=== PATIENT | female | born 2000 | race Caucasian/White ===

== ENCOUNTER 2022-12-29 14:11 | Observation (INO) | payer MEDICAID, SELFPAY ==
[2022-12-29 14:56] VITALS: BP 118/60; PULSE 96
[2022-12-29 15:15] LABS: Bilirubin Urine NEGATIVE (NEGATIVE); Blood Urine NEGATIVE (NEGATIVE); Clarity Urine CLEAR (CLEAR); Color Urine LT. YELLOW (YELLOW); Glucose Urine UA NEGATIVE (NEGATIVE); Ketones Urine NEGATIVE (NEGATIVE); Leukocyte Esterase Urine NEGATIVE (NEGATIVE); Nitrite Urine NEGATIVE (NEGATIVE); Protein Urine NEGATIVE (NEG/TRACE); Specific Gravity Urine <=1.005 (1.005-1.025); Urobilinogen Urine 0.2 EU/dL (0.2-1.0); pH Urine 6.5 (5.0-9.0)
[2022-12-29 15:16] LABS: Urine Microscopic Indicated NO
[2022-12-29 15:22] LABS: Amnisure NEGATIVE (NEGATIVE)
== END 2022-12-29 16:02 | disposition home or self-care (01) ==
PROVIDERS: Admitting Provider Obstetrics & Gynecology; Visit Provider Obstetrics & Gynecology
DX: O26.892 Other specified pregnancy related conditions, second trimester (principal); N89.8 Other specified noninflammatory disorders of vagina; R10.9 Unspecified abdominal pain; Z3A.25 25 weeks gestation of pregnancy
CPT/HCPCS: 59025; 81003; 84112; G0378; G0379

== ENCOUNTER 2024-07-26 22:35 | Emergency (ER) | payer SELFPAY ==
[2024-07-26 22:46] VITALS: BP 112/82; PULSE 104; TEMP 36.8; O2SAT 99; BMI 43.4
--- OUTSIDE RECORDS SUMMARY | 2024-07-26 22:53 | XMS_ITS | CCD ---
Author Organization [facility] ion Partnership [facility] Care Team Providers Care Flat Surfacer Name Role Phone Unavailable Primary Care Provider Unavailabl e ADAPLUCAS SIR Referring Unavailable [place] Unavailable Unavailable Primary Care Provider Unavailabl e Shelbie Finch Unavailable FAHAD ECHEVARRIA Admitting Unavailable SHELBIE FINCH Primary Care Unavailable FAHAD ECHEVARRIA Attending Unavailable SHELBIE FINCH Consulting Unavailable SHELBIE FINCH Attending Unavailable SHELBIE FINCH Admitting Unavailable SHELBIE FINCH Primary Care Unavailable Jolene Love Unavailable Alpesh Singh Attending Unavailab Alpesh Cat Admitting Unavailab dashawn NO FAMILY, PHYSICIAN Primary Care Unavailable No Pcp, No Pcp Primary Care Provider Unavailabl e Unavailable Primary Care Provider Unavailabl e No Pcp, No Pcp Primary Care Provider Unavailabl e NO FAMILY, PHYSICIAN Primary Care Provider Unava ilable Alpesh Singh MD Attending Provider No Pcp, No Pcp Primary Care Provider Unavailabl e ELISA ARCE Attending Unavailable HILTON BOWIE Attending Unavailable NO PCP, NO PCP Primary Care Unavailable AJ FLORES Attending Unavailable NO PCP, NO PCP Primary Care Unavailable MAVIS ROCK Referring Unavailable NO PCP, NO PCP Primary Care Unavailable NO PCP, NO PCP Primary Care Unavailable NO PCP, NO PCP Primary Care Unavailable NO PCP, NO PCP Primary Care Unavailable LAUREN ROJAS Attending Unavailable BEATRIZ KEBEDE Attending Unavailable NO PCP, NO PCP Primary Care Unavailable BEATRIZ KEBEDE Referring Unavailable NO PCP, NO PCP Primary Care Unavailable BEATRIZ KEBEDE Attending Unavailable NO PCP, NO PCP Primary Care Unavailable LIZ MCKEON Attending Unavailable NO PCP, NO PCP Primary Care Unavailable KESHA BANKS Referring Unavailable NO PCP, NO PCP Primary Care Unavailable NO PCP, NO PCP Primary Care Unavailable MELISSA BARR Referring Unavaila ble NO PCP, NO PCP Primary Care Unavailable Medications Current Medications Medication Drug Class(es) Dates Sig (Normalized) Sig (Original) acetaminophen 500 mg oral tablet (10 sources) Start: 06-30-2023 take 2 tablets by mouth every six hours as needed for pain acetaminophen (TYLENOL EXTRA STRENGTH) 500 mg tablet Take 2 tablets (1,000 mg total) by mouth every 6 (six) hours as needed for pain. 30 tablet 06/30/2023 Active Start: 04-01-2023 End: 04-03-2023 take 1 tablet by mouth every eight hours as needed for pain and pain 1,000 mg, oral, Every 8 hours PRN, moderate pain - pain scale 4-6, severe pain - pain scale 7-10, Starting on Thu04/01/23 at 2323, Start: 04-01-2023 End: 04-03-2023 take 1 tablet by mouth every four hours as needed for pain 650 mg, oral, Every 4 hours PRN, mild pain - pain scale 1-3, Starting on Thu04/01/23 at 2323, Start: 10-27-2021 End: 10-27-2021 acetaminophen (TYLENOL) tabl et 1,000 mg take 2 tablets by mo uth every six hours as needed for pain acetaminophen (TYLENOL) 325 MG tablet Take 2 tablets by mouth every 6 hours as needed for Pain Active amoxicillin 875 mg / clavulanate 125 mg oral tablet (1 source) Penicillin-class Antibacterial Start: 06-14-2024 End: 06-21-2024 take 1 tablet by mouth every twelve hours amoxicillin-pot clavulanate (AUGMENTIN) 875-125 mg per tablet Take 1 tablet by mouth every 12 (twelve) hours for 7 days. 14 tablet 06/14/2024 06/21/2024 Active ARIPiprazole 2 mg oral tablet (5 sources) Atypical Antipsychotic Start: 08-20-2023 take 1 tablet by mouth in the morning ARIPiprazole (ABILIFY) 2 mg tablet Take 1 tablet (2 mg total) by mouth in the morning. 08/20/2023 Active benzonatate 100 mg oral capsule (6 sources) Non-narcotic Antitussive Start: 02-17-2024 take 1 capsule by mouth every eight hours benzonatate (TESSALON PERLES) 100 mg capsule Take 1 capsule (100 mg total) by mouth every 8 (eight) hours. 21 capsule 02/17/2024 Active Blood Pressure Monitor - (1 source) Start: 10-29-2021 Blood Pressure Monitor - as directed topically qd for 30 day(s) Sep, Active dicyclomine hydrochloride 10 mg oral capsule (3 sources) Anticholinergic Start: 07-07-2023 take 1 capsule by mouth four times daily before mealtime dicyclomine (BENTYL) 10 MG capsule Take 1 capsule by mouth 4 times daily (before meals and nightly) for 10 days 40 capsule 07/07/2023 Active diphenhydrAMINE hydrochloride 25 mg disintegrating oral tablet (1 source) Histamine-1 Receptor Antagonist take 1 tablet by mouth every twenty-four hours Unisom SleepMelts 25 MG 1 tablet on the tongue and allow to dissolve at bedtime as needed Orally Once a day Active docusate sodium 100 mg oral capsule (17 sources) Start: 04-01-2023 End: 04-03-2023 take 1 capsule by mouth in the morning, then take 1 capsule by mouth at bedtime docusate sodium (COLACE) 100 mg capsule Take 1 capsule (100 mg total) by mouth in the morning and 1 capsule (100 mg total) before bedtime. 28 capsule 04/03/2023 Active drospirenone, contraceptive, (SLYND) 4 mg (28) tablet (7 sources) Start: 05-08-2023 take 1 tablet by mouth in the morning drospirenone, contraceptive, (SLYND) 4 mg (28) tablet Indications: Counseling for initiation of control method Take 4 mg by mouth in the morning. 28 tablet 10 05/08/2023 Active Ethinyl Estradiol / norgestimate (2 sources) Progestin, Estrogen Ortho Tri-Cy clen (28) Active famotidine 20 mg oral tablet (3 sources) Histamine-2 Receptor Antagonist Start: 07-07-2023 take 1 tablet by mouth twice daily famotidine (PEPCID) 20 MG tablet Take 1 tablet by mouth 2 times daily 60 tablet 07/07/2023 Active ferrous sulfate 325 mg oral tablet (20 sources) Start: 01-06-2023 End: 04-03-2023 take 1 tablet by mouth in the morning ferrous sulfate 325 (65 FE) mg tablet Indications: Other iron deficiency anemia Take 1 tablet (325 mg total) by mouth in the morning. 30 tablet 3 01/06/2023 Active ibuprofen 600 mg oral tablet (20 sources) Nonsteroidal Anti-inflammatory Drug Start: 06-30-2023 take 1 tablet by mouth every six hours as needed for pain ibuprofen (MOTRIN) 600 mg tablet Take 1 tablet (600 mg total) by mouth every 6 (six) hours as needed for pain. 30 tablet 06/30/2023 Active Start: 04-01-2023 End: 04-03-2023 take 1 tablet by mouth every eight hours as needed ibuprofen (MOTRIN) 800 mg tablet Take 1 tablet (800 mg total) by mouth every 8 (eight) hours as needed (cramping). 42 tablet 04/03/2023 Active take 1 tablet by candida th every six hours as needed for pain ibuprofen (ADVIL;MOTRIN) 200 MG tablet Take 1 tablet by mouth every 6 hours as needed for Pain Active Ibuprofen Active ivabradine 5 mg oral tablet (7 sources) Hyperpolarization-activated Cyclic Nucleotide-gated Channel January Start: 12-29-2023 take 1 tablet by mouth in the morning, then take 1 tablet by mouth at bedtime ivabradine (CORLANOR) 5 mg tablet tablet Indications: POTS (postural orthostatic tachycardia syndrome) Take 1 tablet (5 mg total) by mouth in the morning and 1 tablet (5 mg total) before bedtime. 90 tablet 3 12/29/2023 Active magnesium oxide 400 mg oral tablet (20 sources) Start: 12-22-2022 take 1 tablet by mouth in the morning magnesium oxide (MAGOX) 400 mg tablet Take 1 tablet (400 mg total) by mouth in the morning. 30 tablet 2 12/22/2022 Active 24 hr metoprolol succinate 25 mg extended release oral tablet (4 sources) beta-Adrenergic January Start: 09-18-2023 End: 12-02-2023 take 1 tablet by mouth every twenty-four hours in the morning metoprolol succinate XL (TOPROL XL) 25 mg 24 hr tablet Take 1 tablet (25 mg total) by mouth in the morning. 30 tablet 11 09/18/2023 12/02/2023 Discontinued (Patient Stopped On Own) Start: 08-28-2023 End: 09-18-2023 take 0.5 tablet by mouth every twenty-four hours in the morning metoprolol succinate XL (TOPROL XL) 25 mg 24 hr tablet Take 0.5 tablets (12.5 mg total) by mouth in the morning. 30 tablet 11 08/28/2023 09/18/2023 Discontinued midodrine hydrochloride 2.5 mg oral tablet (2 sources) alpha-Adrenergic Agonist Start: 07-15-2024 take 1 tablet by mouth twice daily midodrine (PROAMATINE) 2.5 mg tablet Take 1 tablet (2.5 mg total) by mouth 2 (two) times a day. TAKE 4-5 HOURS APART DURING UPRIGHT HOURS 60 tablet 5 07/15/2024 Active NONFORMULARY (3 sources) NONFORMULARY Ora l BC daily Active NONFORMULARY Ora l BC daily 0 Active ofloxacin 3 mg/ml ophthalmic solution (1 source) Quinolone Antimicrobial Start: 09-08-2022 Ofloxacin 0.3 % 10 drops into affected ear Otic Once a day for 7 days Aug, Active ondansetron 4 mg disintegrating oral tablet (12 sources) Serotonin-3 Receptor Antagonist Start: 06-29-2024 ondansetron ODT (ZOFRAN ODT) 4 mg disintegrating tablet Indications: Nausea and vomiting in Dissolve 1 tablet (4 mg total) on tongue every 8 (eight) hours as needed for nausea. 30 tablet 06/29/2024 Active Start: 06-28-2024 End: 06-28-2024 4 mg, IntraVENous, ONCE, 1 d ose, On Thu06/28/24 at 1500 Start: 04-11-2024 take 1 tablet by candida th every eight hours as needed for nausea and vomiting Ondansetron 4 mg tablet,disintegrating Active 4 MG PO Every 8 hours as needed for nausea and vomiting 15 April 11, 2024 12:00am Start: 07-07-2023 take 1 tablet by candida th three times daily as needed for nausea ondansetron (ZOFRAN-ODT) 4 MG disintegrating tablet Take 1 tablet by mouth 3 times daily as needed for Nausea or Vomiting 21 tablet 07/07/2023 Active Start: 03-31-2023 End: 04-02-2023 take 4 mg intravenously every four hours as needed for nausea and vomiting ondansetron (PF) (ZOFRAN) injection 4 mg Start: 10-27-2021 End: 10-27-2021 ondansetron (ZOFRAN-ODT) disintegrating tablet 4 mg Start: 02-20-2021 take 1 tablet by candida th three times daily as needed Zofran 4 MG 1 tablet Orally tid prn Jan, Active vit 70-krpb-hlzff-dha 18-1-350 mg capsule (20 sources) Start: 08-14-2022 take 1 tablet by mouth in the morning vit 38-krpr-gqgsv-dha 18-1-350 mg capsule Indications: , prevent neural tube defect Take 1 tablet by mouth in the morning. Indications: , prevention of neural tube defect when . 90 capsule 4 08/14/2022 Start: 08-14-2022 take 1 tablet by candida th in the morning vit 57-plxo-pkpkz-dha 18-1-350 mg capsule Indications: , prevent neural tube defect Take 1 tablet by mouth in the morning. Indications: , prevention of neural tube defect when . 90 capsule 4 08/14/2022 Suspended Start: 08-14-2022 take 1 tablet by candida th in the morning vit 53-djpy-rubbq-dha 18-1-350 mg capsule Indications: , prevent neural tube defect Take 1 tablet by mouth in the morning. Indications: , prevention of neural tube defect when . 90 capsule 4 08/14/2022 Active vit no.786-fiqn-zdmhr acid ( VITAMIN) 27 mg iron- 800 mcg tablet (4 sources) Start: 06-29-2024 take 1 tablet by mouth in the morning vit no.309-jpol-lxznw acid ( VITAMIN) 27 mg iron- 800 mcg tablet Indications: Positive test Take 1 tablet by mouth in the morning. 30 tablet 12 06/29/2024 Active Vitamins 28-0.8 MG (1 source) take 1 tablet by mouth once daily Vitamins 28-0.8 MG 1 tablet Orally Once a day Active sertraline 50 mg oral tablet (20 sources) Serotonin Reuptake Inhibitor Start: 03-05-2023 End: 04-03-2023 take 1 tablet by mouth in the morning sertraline (ZOLOFT) 50 mg tablet Indications: Depression affecting in third trimester, antepartum Take 1 tablet (50 mg total) by mouth in the morning. 30 tablet 2 03/05/2023 Active Start: 02-19-2023 End: 03-05-2023 take 1 tablet by mouth in the morning sertraline (ZOLOFT) 25 mg tablet Indications: Depression affecting in third trimester, antepartum Take 1 tablet (25 mg total) by mouth in the morning. 30 tablet 3 02/19/2023 03/05/2023 Discontinued Completed/Discontinued Medications Medication Drug Class(es) Dates Sig (Normalized) Sig (Original) aspirin 81 mg delayed release oral tablet (20 sources) Platelet Aggregation Inhibitor, Nonsteroidal Anti-inflammatory Drug Start: 10-21-2022 End: 04-03-2023 take 1 tablet by mouth once in the morning aspirin 81 mg Indications: care in second trimester , Heart palpitations , Obesity affecting in second trimester Take 1 tablet (81 mg total) by mouth in the morning. 150 tablet 2 10/21/2022 04/03/2023 Discontinued (Stop Taking at Discharge) benzocaine 200 mg/ml / menthol 5 mg/ml topical spray (1 source) Standardized Chemical Allergen Start: 04-02-2023 End: 04-03-2023 1 Application, topical, As needed, pain, perineum discomfort, Starting on Sammie 04/02/23 at 0111, , May keep at bedside bisacodyl 10 mg rectal suppository (1 source) Stimulant Laxative Start: 04-02-2023 End: 04-03-2023 10 mg, rectal, Once as needed, constipation, no relief from docusate or senna/docusate, Starting on Sammie 04/02/23 at 0111, For 1 dose, , Start 2nd day Look-alike/sound-a like medication - verify indication for use. calcium chloride 0.0014 meq/ml / potassium chloride 0.004 meq/ml / sodium chloride 0.103 meq/ml / sodium lactate 0.028 meq/ml injectable solution (6 sources) Start: 04-02-2023 End: 04-03-2023 take 999 mL intravenously every hour as needed 999 mL/hr, intravenous, Continuous PRN, hemorrhage treatment, Starting on Sammie 04/02/23 at 0111, , Per infusion pump. For hemorrhage treatment, administer as directed by provider Start: 04-01-2023 End: 04-01-2023 lactated ringers bolus Start: 03-31-2023 End: 04-03-2023 lactated ringers infusion 1 ml carboprost 0.25 mg/ml injection (1 source) Prostaglandin Analog Start: 03-31-2023 End: 04-03-2023 carboprost (HEMABATE) injection 250 mcg hydrocortisone 25 mg/ml topical cream (1 source) Corticosteroid Start: 04-02-2023 End: 04-03-2023 1 Application, rectal, As needed, hemorrhoids, Starting on Sammie 04/02/23 at 0111, , May keep at bedside, Indications: hemorrhoids hydrOXYzine pamoate 25 mg oral capsule (16 sources) Antihistamine Start: 03-05-2023 End: 04-03-2023 take 1 capsule by mouth twice daily as needed hydrOXYzine (VistariL) 25 mg capsule Take 1 capsule (25 mg total) by mouth 2 (two) times a day as needed for itching. 30 capsule 0 03/05/2023 04/03/2023 Discontinued (Stop Taking at Discharge) Iron (5 sources) Iron Not-Taking Iron Active lanolin 1000 mg/ml topical cream (1 source) Start: 04-02-2023 End: 04-03-2023 1 Application, topical, As needed, sore/cracked nipples, Starting on Sammie 04/02/23 at 0111, , May keep at bedside levonorgestrel 0.678877 mg/hr intrauterine system (5 sources) Progestin, Progestin-containing Intrauterine Device Start: 07-19-2024 End: 07-19-2024 levonorgestreL (MIRENA) 21 mcg/24hr (up to 8 yrs) 52 mg IUD 1 each Start: 07-19-2024 End: 07-19-2024 1 each (52 mg), intrauterine , Once, On Thu07/19/24 at 1415, For 1 dose, Has patient consent been obtained? Yes, Indication: Prevention of Unintended Kyleena Not-Taki ng Kyleena Active 1 ml methylergonovine maleate 0.2 mg/ml injection (2 sources) Ergot Derivative Start: 04-01-2023 End: 04-01-2023 200 mcg, intramuscular, Once as needed, hemorrhage management, Starting on Thu04/01/23 at 2323, For 1 dose, , Administer as directed by the provider for hemorrhage treatment. DO NOT ADMINISTER IV. Contraindicated if patient has a sensitivity or Systolic BP greater than 140 or Diastolic BP greater than 90. Look-alike/sound-alike medication - verify indication for use. Start: 03-31-2023 End: 04-01-2023 methylergonovine (METHERGINE ) injection 200 mcg miSOPROStol 0.2 mg oral tablet (2 sources) Prostaglandin E1 Analog Start: 04-02-2023 End: 04-03-2023 take 1000 ug rectal route once as needed 1,000 mcg, rectal, Once as needed, hemorrhage management, Starting on Sammie 04/02/23 at 0111, For 1 dose, , Administer as directed by the provider for hemorrhage management. Look-alike/sound-alike medication - verify indication for use. Start: 03-31-2023 End: 04-03-2023 miSOPROStoL (CYTOTEC) tablet 1,000 mcg 1 ml oxytocin 10 unt/ml injection (2 sources) Oxytocic Start: 04-02-2023 End: 04-03-2023 inject 10 [IU] by intramuscular injection once as needed 10 Units, intramuscular, Once as needed, hemorrhage management, Starting on Sammie 04/02/23 at 0111, For 1 dose, Administer as directed by provider. Start: 03-31-2023 End: 04-03-2023 oxytocin (PITOCIN) injection 10 Units oxytocin (PITOCIN) bolus fro m bag solution 10 Units (1 source) Start: 03-31-2023 End: 04-01-2023 oxytocin (PITOCIN) bolus fro m bag solution 10 Units oxytocin (PITOCIN) infusion 30 units/500 mL in lactated ringers (0.06 units/mL premix) (3 sources) Start: 04-02-2023 End: 04-03-2023 oxytocin (PITOCIN) infusion 30 units/500 mL in lactated ringers (0.06 units/mL premix) Start: 03-31-2023 End: 04-02-2023 oxytocin (PITOCIN) infusion 30 units/500 mL in lactated ringers (0.06 units/mL premix) Start: 03-31-2023 End: 04-03-2023 oxytocin (PITOCIN) infusion 30 units/500 mL in lactated ringers (0.06 units/mL premix) PNV,calcium 47-tvdi-pqehe acid ( PLUS) 27 mg iron- 1 mg tablet 1 tablet (1 source) Start: 04-02-2023 End: 04-03-2023 take 1 tablet by mouth once daily 1 tablet, oral, Daily, First dose on Thu04/02/23 at 0900, polyethylene glycol 3350 30927 mg powder for oral solution (1 source) Osmotic Laxative Start: 04-02-2023 End: 04-03-2023 17 g, oral, Daily, First dose on Thu04/02/23 at 0900, , Look-alike/sound- alike medication - verify indication for use. Dissolve 1 packet (17 gm) in 8 ounces of water, juice, soda, coffee or tea. 1000 ml sodium chloride 9 mg/ml injection (5 sources) Start: 06-28-2024 End: 06-28-2024 1,000 mL (9.59 mL/kg), IntraVENous, at 983.6 mL/hr, Administer over 61 Minutes, ONCE, On Thu06/28/24 at 1500, For 1 dose Start: 08-23-2023 End: 08-23-2023 sodium chloride 0.9 % bolus 1,000 mL Start: 04-02-2023 End: 04-03-2023 3 mL, intravenous, As needed , line care, to maintain patency, Starting on Thu04/02/23 at 0111, Start: 04-02-2023 End: 04-03-2023 take 3 mL intravenously every eight hours 3 mL, intravenous, Every 8 hours, First dose on Sammie 04/02/23 at 0115, , Flush peripheral line per protocol 10 ml tranexamic acid 100 mg/ml injection (2 sources) Antifibrinolytic Agent Start: 04-02-2023 End: 04-03-2023 take 1 dose intravenously once 1,000 mg, intravenous, Administer over 10 Minutes, As needed, hemostasis/ hemorrhage management, Starting on Thu04/02/23 at 0111, For 2 doses, , As directed by the provider for hemostasis/ hemorrhage management. Give slow IV push over 10 minutes, may repeat one time 30 minutes after initial dose. Start: 03-31-2023 End: 04-03-2023 tranexamic acid (CYKLOKAPRON ) injection 1,000 mg witch dell 500 mg/ml medicated pad (1 source) Start: 04-02-2023 End: 04-03-2023 1 Application, topical, As needed, hemorrhoids, Starting on Sammie 04/02/23 at 0111, , May keep at bedside Problems Active Problems Problem Classification Problem Date Documented Da te Episodic/Chronic Abdominal pain (3 sources) Right upper quadrant pain; Translations: [Right upper quadrant pain] Onset: 06-29-2024 06-29-2024 Episodic Blindness and vision defects (6 sources) Visual alteration; Translations: [Unspecified visual loss] Onset: 10-29-2021 Resolved: 10-29-2021 Chronic Cardiac dysrhythmias (20 sources) Inappropriate sinus tachycardia; Translations: [Inappropriate sinus tachycardia] Onset: 12-25-2022 12-25-2022 Chronic Conditions associated with dizziness or vertigo (3 sources) Dizziness; Translations: [Dizziness and giddiness] Onset: 06-27-2024 Episodic Contraceptive and procreative management (4 sources) Patient encounter status; Translations: [Encounter for other general counseling and advice on contraception] Onset: 07-19-2024 05-08-2023 Episodic E Codes: Fall (2 sources) Fall Onset: 04-13-2024 E Codes: Natural/environment (6 sources) Dog bite - wound; Translations: [Bitten by dog, initial encounter] Onset: 06-14-2024 06-14-2024 Episodic Epilepsy; convulsions (1 source) Unspecified convulsions Episodic Headache; including migraine (20 sources) New daily persistent headache; Translations: [New daily persistent headache (NDPH)] Onset: 10-29-2021 Resolved: 10-29-2021 Chronic Headache; including migraine (1 source) Headache; Translations: [Nonintractable headache, unspecified chronicity pattern, unspecified headache type] Episodic Menstrual disorders (4 sources) Amenorrhea; Translations: [Amenorrhea, unspecified] Onset: 06-29-2024 06-29-2024 Chronic Mood disorders (20 sources) Depressive disorder; Translations: [Depression] Onset: 03-18-2018 03-18-2018 Chronic Other circulatory disease (2 sources) Postural orthostatic tachycardia syndrome ; Translations: [Postural orthostatic tachycardia syndrome (POTS)] Onset: 04-13-2024 Episodic Other complications of (20 sources) Anemia of ; Translations: [Anemia complicating , third trimester] Onset: 08-14-2022 01-06-2023 Chronic Other complications of (11 sources) Vomiting of , unspecified; Translations: [Unspecified vomiting of , unspecified as to episode of care or not applicable] Onset: 08-14-2022 Resolved: 03-25-2023 03-25-2023 Episodic Other complications of (1 source) Complication of , childbirth and/or the puerperium; Translations: [ related conditions, unspecified, first trimester] 06-28-2024 Episodic Other complications of (1 source) related conditions, unspecified, first trimester; Translations: [ related conditions, unspecified, first trimester] Onset: 06-28-2024 Episodic Other ear and sense organ disorders (1 source) Swimmer's ear, left ear Episodic Other female genital disorders (1 source) Vaginal bleeding; Translations: [Abnormal uterine and vaginal bleeding, unspecified] 07-02-2024 Chronic Other female genital disorders (1 source) Abnormal uterine and vaginal bleeding, unspecified; Translations: [Abnormal uterine and vaginal bleeding, unspecified] Onset: 07-02-2024 Chronic Other gastrointestinal disorders (2 sources) Diarrhea; Translations: [Diarrhea, unspecified] 06-28-2024 Episodic Other gastrointestinal disorders (1 source) Diarrhea, unspecified; Translations: [Diarrhea, unspecified] Onset: 06-28-2024 Episodic Other nervous system disorders (3 sources) Incoordination; Translations: [Unspecified lack of coordination] Episodic Other nervous system disorders (2 sources) Unspecified lack of coordination; Translations: [UNSPECIFIED LACK OF COORDINATION] Onset: 10-29-2021 Resolved: 10-29-2021 Episodic Other nutritional; endocrine; and metabolic disorders (20 sources) Obesity caused by energy imbalance; Translations: [Class 1 obesity due to excess calories in adult] Onset: 04-03-2018 04-03-2018 Chronic Other and delivery including normal (20 sources) Finding of ; Translations: [Encounter for care and examination of lactating mother] Onset: 08-14-2022 Resolved: 06-29-2024 04-03-2023 Episodic Other upper respiratory disease (5 sources) Allergic rhinitis; Translations: [Allergic rhinitis, unspecified] Chronic Residual codes; unclassified (3 sources) Memory impairment; Translations: [Other amnesia] Episodic Residual codes; unclassified (2 sources) Disorientation, unspecified; Translations: [DISORIENTATION UNSPECIFIED] Onset: 10-29-2021 Resolved: 10-29-2021 Episodic Residual codes; unclassified (3 sources) Other amnesia; Translations: [OTHER AMNESIA] Onset: 10-29-2021 Resolved: 10-29-2021 Episodic Residual codes; unclassified (4 sources) Procedure and treatment not carried out due to patient leaving prior to being seen by health care provider; Translations: [PROC AND TX NOT CARRIED OUT PT LEAVE] Onset: 10-30-2021 Episodic Spontaneous (2 sources) Miscarriage; Translations: [Complete or unspecified spontaneous without complication] Onset: 07-02-2024 07-02-2024 Episodic Unclassified (1 source) Animal Bite Onset: 06-14-2024 Unclassified (1 source) Inappropriate sinus tachycardia, so stated; Translations: [Inappropriate sinus tachycardia, so stated] Onset: 12-25-2022 Unclassified (1 source) Procedure Onset: 07-19-2024 Unclassified (1 source) ob problem Onset: 06-29-2024 Past or Other Problems Problem Classification Problem Date Documented Date Episodic/Chronic Cardiac dysrhythmias (20 sources) Palpitations; Translations: [Palpitations] Onset: 10-21-2022 11-19-2022 Episodic Chronic obstructive pulmonary disease and bronchiectasis (1 source) Bronchitis, not specified as acute or chronic; Translations: [Bronchitis, not specified as acute or chronic] Onset: 02-17-2024 Episodic Diabetes mellitus without complication (20 sources) Abnormal glucose tolerance test; Translations: [Other abnormal glucose] Onset: 01-06-2023 Resolved: 06-12-2023 06-12-2023 Episodic Early or threatened labor (1 source) Premature uterine contraction; Translations: [False labor before 37 completed weeks of gestation, third trimester] 03-05-2023 Episodic Fever of unknown origin (1 source) Fever, unspecified Onset: 02-20-2021 Resolved: 02-20-2021 Episodic Genitourinary symptoms and ill-defined conditions (1 source) Benign essential microscopic hematuria; Translations: [Benign essential microscopic hematuria] 06-12-2023 Episodic Immunizations and screening for infectious disease (2 sources) Contact with and (suspected) exposure to other viral communicable diseases Onset: 02-20-2021 Resolved: 05-19-2021 Episodic Influenza (1 source) Influenza due to other identified influenza virus with other respiratory manifestations Onset: 02-20-2021 Resolved: 02-20-2021 Episodic Mood disorders (20 sources) Mood disorders; Translations: [Depression, unspecified] Onset: 03-18-2018 09-18-2022 Nausea and vomiting (4 sources) Nausea; Translations: [Nausea with vomiting, unspecified] Onset: 02-20-2021 Resolved: 10-29-2021 Episodic Nonspecific chest pain (2 sources) Chest pain, unspecified; Translations: [Chest pain] Onset: 12-07-2023 Episodic Other circulatory disease (1 source) Idiopathic hypotension Onset: 10-29-2021 Resolved: 10-29-2021 Episodic Other circulatory disease (1 source) Orthostatic hypotension; Translations: [Orthostatic hypotension] 08-23-2023 Episodic Other circulatory disease (1 source) Orthostatic hypotension; Translations: [Orthostatic hypotension] Onset: 08-23-2023 Episodic Other complications of (20 sources) Maternal obesity complicating , childbirth and the puerperium, antepartum; Translations: [Obesity complicating , unspecified trimester] Onset: 08-14-2022 Resolved: 05-08-2023 05-08-2023 Chronic Other complications of (20 sources) Uterine size for dates discrepancy; Translations: [Uterine size-date discrepancy, second trimester] Onset: 12-17-2022 Resolved: 03-25-2023 03-25-2023 Episodic Other complications of (20 sources) Insufficient weight gain of ; Translations: [Low weight gain in , unspecified trimester] Onset: 12-17-2022 Resolved: 05-08-2023 05-08-2023 Episodic Other complications of (20 sources) Nausea and vomiting; Translations: [Vomiting of , unspecified] Onset: 08-14-2022 Resolved: 03-25-2023 08-14-2022 Episodic Other complications of (1 source) Depressive disorder; Translations: [Other mental disorders complicating , third trimester] 03-05-2023 Episodic Other complications of (1 source) High risk ; Translations: [Supervision of young primigravida, third trimester] 03-12-2023 Episodic Other complications of (1 source) Other mental disorders complicating , third trimester; Translations: [Other mental disorders complicating , third trimester] Onset: 12-07-2023 Episodic Other lower respiratory disease (20 sources) Dyspnea; Translations: [Shortness of breath] Onset: 11-14-2022 11-14-2022 Episodic Other upper respiratory disease (1 source) Nasal congestion Onset: 02-17-2024 Episodic Other upper respiratory infections (1 source) Acute upper respiratory infection, unspecified Onset: 05-19-2021 Resolved: 05-19-2021 Episodic Polyhydramnios and other problems of amniotic cavity (20 sources) Amniotic fluid leaking; Translations: [Premature rupture of membranes, unspecified as to length of time between rupture and onset of labor, unspecified weeks of gestation] Onset: 12-29-2022 Resolved: 05-08-2023 02-11-2023 Episodic Residual codes; unclassified (20 sources) Family history of cardiac disorder; Translations: [Family history of ischemic heart disease and other diseases of the circulatory system] Onset: 10-21-2022 10-21-2022 Episodic Residual codes; unclassified (20 sources) Genetic carrier of other disease; 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] Onset: 01-09-2023 01-09-2023 Episodic Residual codes; unclassified (1 source) Gestation period, 35 weeks; Translations: [35 weeks gestation of ] 03-05-2023 Episodic Residual codes; unclassified (1 source) Gestation period, 36 weeks; Translations: [36 weeks gestation of ] 03-12-2023 Episodic Screening and history of mental health and substance abuse codes (1 source) H/O: depression; Translations: [Personal history of other mental and behavioral disorders] 06-12-2023 Episodic Syncope (20 sources) Syncope and collapse; Translations: [Syncope symptom] Onset: 10-29-2021 Resolved: 10-29-2021 Episodic NEGATED: Highlighted row has been ruled out!Unclassified (1 source) No known active problems 08-23-2023 Results Test Name Value Interpretation Reference Range Facility BMPon 07-02-2024 Anion gap [Moles/Vol] 13 mmol/L 9 - 16 mmol/L [facility] Calcium [Mass/Vol] 8.9 mg/dL 8.6 - 10. 4 mg/dL [facility] Chloride [Moles/Vol] 105 mmol/L 98 - 10 7 mmol/L [facility] CO2 [Moles/Vol] 22 mmol/L 20 - 31 mmol/L [facility] Creatinine [Mass/Vol] 0.6 mg/dL 0.50 - 0.90 mg/dL [facility] Est, Gabriella Rutledge Rate - PINF [facility] Comment on above: These results are not intended for use in patients <18 years of age. eGFR results are calculated without a race factor using the 2020 CKD-EPI equation. Careful clinical correlation is recommended, particularly when comparing to results calculated using previous equations. The CKD-EPI equation is less accurate in patients with extremes of muscle mass, extra-renal metabolism of creatine, excessive creatine ingestion, or following therapy that affects renal tubular secretion. Glucose [Mass/Vol] 102 mg/dL High 74 - 99 mg/dL [facility] Interpretation and review of laboratory results Abnormal [facility] Potassium [Moles/Vol] 3.7 mmol/L 3.7 - 5.3 mmol/L [facility] Sodium [Moles/Vol] 140 mmol/L 136 - 145 mmol/L [facility] Urea nitrogen [Mass/Vol] 9 mg/dL 6 - 20 mg/dL [facility] Urea nitrogen/Creatinine [Mass ratio] 15 mg/mg 9 - 20 [facility] Basic Metabolic Profon 07-02 Anion gap [Moles/Vol] 13 mmol/L Normal 9-16 [facility] Comment on above: Performed By: #### B MP, CDP ####[facility] [place] , [place] [id number] Lab Director: Augustine Don MD BUN/CRE Ratio 15 Normal 9-20 [facility] Comment on above: Performed By: #### B GONZALO, CDP ####[address] , [place] [phone] Lab Director: Augustine Don MD Calcium [Mass/Vol] 8.9 mg/dL Normal 8.6-10.4 [facility] Comment on above: Performed By: #### B MP, CDP ####[address] , [place] [id number] Lab Director: Augustine Don MD Chloride [Moles/Vol] 105 mmol/L Normal 98-107 [facility] Comment on above: Performed By: #### B GONZALO, CDP ####[address] , [place] [id number] Lab Director: Augustine Don MD CO2 [Moles/Vol] 22 mmol/L Normal 20-31 [facility] Comment on above: Performed By: #### B GONZALO, CDP ####[address] , [place] [phone] Lab Director: Augustine Don MD Creatinine [Mass/Vol] 0.6 mg/dL Normal 0.50-0.90 [facility] Comment on above: Performed By: #### B GONZALO, CDP ####[address] , [place] [id number] Lab Director: Augustine Don MD GFR/1.73 sq M.predicted nanda g non-blacks MDRD (S/P/Bld) [Vol rate/Area] mL/min/{1.73_m2} Normal >60 [facility] Comment on above: Result Comment: These results are not intended for use in patients <18 years of age. eGFR results are calculated without a race factor using the 2020 CKD-EPI equation. Careful clinical correlation is recommended, particularly when comparing to results calculated using previous equations. The CKD-EPI equation is less accurate in patients with extremes of muscle mass, extra-renal metabolism of creatine, excessive creatine ingestion, or following therapy that affects renal tubular secretion. Performed By: #### B GONZALO, CDP ####[address] , [place] [id number] Lab Director: Augustine Don MD Glucose [Mass/Vol] 102 mg/dL High 74-99 [facility] Comment on above: Performed By: #### B GONZALO, CDP ####[address] , [place] [phone] Director: Augustine Don MD Potassium [Moles/Vol] 3.7 mmol/L Normal 3.7-5.3 [facility] Comment on above: Performed By: #### B GONZALO, CDP ####[address] , [place] [id number] Lab Director: Augustine Don MD Sodium [Moles/Vol] 140 mmol/L Normal 136-145 [facility] Comment on above: Performed By: #### B GONZALO, CDP ####[address] [place] [address] Lab Director: Augustine Don MD Urea nitrogen [Mass/Vol] 9 mg/dL Normal 6-20 [facility] Comment on above: Performed By: #### B GONZALO, CDP ####[address] , [place] [address] Lab Director: Augustine Don MD CBC with Auto Differentialon 07-02-2024 Basophils (Bld) [#/Vol] 0.05 10*3/uL [facility] Basophils/100 WBC (Bld) 1 % 0 - 2 % B on [facility] Eosinophils (Bld) [#/Vol] 0.16 10*3/uL [facility] Eosinophils/100 WBC (Bld) 3 % 1 - 4 % [facility] Erythrocyte distribution width (RBC) [Ratio] 14.4 % 11.8 - 14.4 % [facility] Hematocrit (Bld) [Volume fraction] 36.2 % Low 36.3 - 47.1 % [facility] Hemoglobin (Bld) [Mass/Vol] 11.7 g/dL Low 11.9 - 15.1 g/dL [facility] Immature granulocytes (Bld) [#/Vol] 0 10*3/uL [facility] Immature granulocytes/100 WB C (Bld) 0 % 0 [facility] Interpretation and review of laboratory results Abnormal [facility] Lymphocytes/100 WBC (Bld) 31 % 25 - 45 % [facility] Lymphocytes/100 WBC (Bld) 1.64 % [facility] MCH (RBC) [Entitic mass] 25.1 pg Low 25. 2 - 33.5 pg [facility] MCHC (RBC) [Mass/Vol] 32.3 g/dL 28.4 - 34.8 g/dL [facility] MCV (RBC) [Entitic vol] 77.7 fL Low 82.6 - 102.9 fL [facility] Monocytes/100 WBC (Bld) 7 % 2 - 8 % B on [facility] Monocytes/100 WBC (Bld) 0.37 % B on [facility] Morphology Arnel (Bld) [Interp] Platelet s can shows Normal Platelets [facility] Neutrophils/100 WBC (Bld) 58 % 34 - 64 % [facility] Nucleated RBC/100 WBC (Bld) [Ratio] 0 % 0.0 per 100 WBC [facility] Platelet, Fluorescence 122 Low Nish n [facility] Platelets (Bld) [#/Vol] See Reflexed IPF Result [facility] Platelets reticulated/100 platelets Auto (Bld) 8.7 % 1.1 - 10.3 % [facility] RBC (Bld) [#/Vol] 4.66 10*6/uL 3.95 - 5.11 m/uL [facility] Segmented neutrophils/100 WB C (Bld) 3.08 % [facility] WBC other (Bld) [#/Vol] 5.3 B on [facility] CBC with Diffon 07-02-2024 Abs. Basophil 0.05 k/uL Normal 0.00-0.20 [facility] Comment on above: Performed By: #### B MP, CDP ####[address] , [place] [id number] Lab Director: Augustine Don MD Abs.Imm.Granulocyte 0.00 k/uL Normal 0.00-0.30 [facility] Comment on above: Performed By: #### B MP, CDP ####[address] [place] [address] Lab Director: Augustine Don MD Abs.Neutrophil (Seg) 3.08 k/uL Normal 1.50-8.10 [facility] Comment on above: Performed By: #### B GONZALO, CDP ####[address] [place] [address] Lab Director: Augustine Don MD Basophils/100 WBC (Bld) 1 % Normal 0-2 [facility] Comment on above: Performed By: #### B GONZALO, CDP ####[address] [place] [address] Lab Director: Augustine Don MD Eosinophils (Bld) [#/Vol] 0.16 10*3/uL Normal 0.00-0.4 4 [facility] Comment on above: Performed By: #### B GONZALO, CDP ####[address] [place] [address] Lab Director: Augustine Don MD Eosinophils/100 WBC (Bld) 3 % Normal 1-4 [facility] Comment on above: Performed By: #### B MP, CDP ####[address] [place] [address] Lab Director: Augustine Don MD Immature granulocytes/100 WB C (Bld) 0 % Normal 0 [facility] Comment on above: Performed By: #### B MP, CDP ####[address] [place] [address] Lab Director: Augustine Don MD Lymphocytes (Bld) [#/Vol] 1.64 10*3/uL Normal 1.10-3.7 0 [facility] Comment on above: Performed By: #### B MP, CDP ####[address] , [place] [phone] Director: Augustine Don MD Lymphocytes/100 WBC (Bld) 31 % Normal 25-45 [facility] Comment on above: Performed By: #### B MP, CDP ####[address] , [place] [phone] Director: Augustine Don MD Monocytes (Bld) [#/Vol] 0.37 10*3/uL Normal 0.10-1.40 [facility] Comment on above: Performed By: #### B MP, CDP ####[address] , [place] [phone] Director: Augustine Don MD Monocytes/100 WBC (Bld) 7 % Normal 2-8 M [facility] Comment on above: Performed By: #### B MP, CDP ####[address] , [place] [phone] Director: Augustine Don MD Morphology Arnel (Bld) [Interp] Platelet s can shows Normal Platelets Normal [facility] Comment on above: Performed By: #### B MP, CDP ####[address] , [place] 684[address] Lab Director: Augustine Don MD Neutrophil (Seg) 58 % Normal 34-64 [facility] Comment on above: Performed By: #### B MP, CDP ####[address] [place] [address] [facility] Director: Augustine Don MD Erythrocyte distribution width (RBC) [Ratio] 14.4 % Normal 11.8-14.4 [facility] Comment on above: Performed By: #### B GONZALO, CDP ####[address] , [place] 8[address] Lab Director: Augustine Don MD Hematocrit (Bld) [Volume fraction] 36.2 % Low 36.3-47.1 [facility] Comment on above: Performed By: #### B GONZALO, CDP ####[address] , [place] [phone] [facility] Director: Augustine Don MD Hemoglobin (Bld) [Mass/Vol] 11.7 g/dL Low 11.9-15. 1 [facility] Comment on above: Performed By: #### B GONZALO, CDP ####[address] , [facility]83 [facility] Director: Augustine Don MD MCH (RBC) [Entitic mass] 25.1 pg Low 25.2-33.5 [facility] Comment on above: Performed By: #### B GONZALO, CDP ####[address] , [place] [phone] Lab Director: Augustine Don MD MCHC (RBC) [Mass/Vol] 32.3 g/dL Normal 28.4-34.8 [facility] Comment on above: Performed By: #### B GONZALO, CDP ####[address] , [place] [phone] Lab Director: Augustine Don MD MCV (RBC) [Entitic vol] 77.7 fL Low 82.6-102.9 M [facility] Comment on above: Performed By: #### B GONZALO, CDP ####[address] , [place] [phone] Lab Director: Augustine Don MD NRBC Automated 0.0 per 100 WBC Normal 0.0 [facility] Comment on above: Performed By: #### B MP, CDP ####[address] , [place] [phone] Lab Director: Augustine Don MD Platelet Count See Reflexed IPF Result Normal 138-453 [facility] Comment on above: Performed By: #### B MP, CDP ####[address] [place] [address] Lab Director: Augustine Don MD Platelet, Fluoresc. 122 k/uL Low 138-453 [facility] Comment on above: Performed By: #### B MP, CDP ####[address] , [place] 9[address] Lab Director: Augustine Don MD PLT, Immature Fract. 8.7 % Normal 1.1-10.3 [facility] Comment on above: Performed By: #### B MP, CDP ####[address] [place] [address] Lab Director: Augustine Don MD RBC (Bld) [#/Vol] 4.66 10*6/uL Normal 3.95-5.11 [facility] Comment on above: Performed By: #### B GONZALO, CDP ####[address] , [place] [phone] Director: Augustine Don MD WBC (Bld) [#/Vol] 5.3 10*3/uL Normal 4.5-13.5 [facility] Comment on above: Performed By: #### B MP, CDP ####[address] , [place] [phone] Lab Director: Augustine Don MD HCG, Quanton 07-02-2024 HCG, Quant 12.2 mIU/mL High 0-7 [facility] Comment on above: Result Comment: Non-preg premeno <=5 Postmeno <=8 Male <=3 If HCG results do not concur with clinical observations, additional testing to confirm results is recommended. Performed By: #### B HCG ####[facility] [place] [address] lab Director: Augustine Don MD HCG, Quantitative, on 07-02-2024 HCG.beta subunit Qn 12.2 m[IU]/mL High Nish n [facility] Comment on above: Non-preg premeno <=5 Postmeno <=8 Male <=3 If HCG results do not concur with clinical observations, additional testing to confirm results is recommended. Interpretation and review of laboratory results Abnormal [facility] Microscopic Urinalysison Bacteria LM Ql (Urine sed) 1+ Abnormal None [facility] Epithelial cells LM.HPF (Urine sed) [#/Area] 2 TO 5 [facility] Interpretation and review of laboratory results Abnormal [facility] Mucus Ql (Urine sed) 2+ Abnormal None [facility] RBC LM.HPF (Urine sed) [#/Area] 20 TO 50 [facility] WBC LM.HPF (Urine sed) [#/Area] 2 TO 5 [facility] UA w/Reflex Cultureon 2024 Bilirubin, SemiQt,Ur Negative Normal NEG [facility] Comment on above: Performed By: #### U AX UMICAO ####[facility] [place] [address] lab Director: Augustine Don MD Blood, Urine 3+ Abnormal NEG [facility] Comment on above: Performed By: #### U AX UMICAO ####[facility] [place] [address] lab Director: Augustine Don MD Clarity (U) SLIGHTLY CLOUDY Abnormal CLEAR [facility] Comment on above: Performed By: #### U AX UMICAO ####[address] [place] [address] Lab Director: Augustine Don MD Color (U) Yellow Normal YEL [facility] Comment on above: Performed By: #### U AX, UMICAO ####[address] [place] [address] Lab Director: Augustine Don MD Glucose Ql (U) Negative Normal NEG [facility] Hospital Comment on above: Performed By: #### U AX, UMICAO ####[address] [place] [address] Lab Director: Augustine Don MD Ketones Ql (U) TRACE Abnormal NEG [facility] Comment on above: Performed By: #### U AX, UMICAO ####[address] [place] [address] Lab Director: Augustine Don MD Leukocyte esterase Test stri p Ql (U) Negative Normal NEG [facility] Comment on above: Performed By: #### U AX, UMICAO ####[address] [place] [address] Lab Director: Augustine Don MD Nitrite,Ur Negative Normal [facility] Comment on above: Performed By: #### U AX, UMICAO ####[address] [place] [address] Lab Director: Augustine Don MD PH,Ur 6.0 Normal 5.0-9.0 [facility] Comment on above: Performed By: #### U AX, UMICAO ####[address] , [place] [phone] Lab Director: Augustine Don MD Protein Ql (U) 1+ mg/dL Abnormal NEG [facility] Comment on above: Performed By: #### U AX, UMICAO ####[address] [place] , [place] [phone] lab Director: Augustnie Don MD Spec. [place],Ur 1.025 High 1.010-1.02 0 [facility] Comment on above: Performed By: #### U AX, UMICAO ####[facility] [place] [address] lab Director: Augustine Don MD Urobilinogen,Ur Normal Normal 0.0-1.0 [facility] Comment on above: Performed By: #### U AX, UMICAO ####[facility] [place] [address] lab Director: Augustine Don MD US OB TRANSVAGINALon 025 US OB TRANSVAGINAL EXAMINATION: FIRST TRIMESTER OBSTETRIC ULTRASOUND 07/02/2024 TECHNIQUE: Transvaginal first trimester obstetric pelvic duplex ultrasound was performed with real-time imaging, color flow Doppler imaging, and spectral analysis. COMPARISON: None HISTORY: ORDERING SYSTEM PROVIDED HISTORY: Vaginal bleeding in TECHNOLOGIST PROVIDED HISTORY: Vaginal bleeding in FINDINGS: Uterus: 8.5 x 3.8 x 2.5 cm Gestational Sac(s): None Yolk Sac: None Embryo(<11wk)/Fetu s(>=11wk): None [place] Rump Length: None Rate of Cardiac Activity none Right ovary: 2.5 x 1.7 x 1.9 cm Left ovary: 3.3 x 1.8 x 3.1 cm Flow is preserved to the ovaries with appropriate waveforms. Free fluid: None IMPRESSION: of unknown location. Differential diagnosis of a of unknown location with hCG < 3000 includes nonvisualized early intrauterine , nonvisualized ectopic , or an early loss that has completely passed. Recommend follow up as indicated with beta hCG and ultrasound. Interpreted by: Carroll Stout MD Signed by: Carroll Stout MD 07/02/24 Final result Normal [facility] of unknown location. Differential diagnosis of a of unknown location with hCG < 3000 includes nonvisualized early intrauterine , nonvisualized ectopic , or an early loss that has completely passed. Recommend follow up as indicated with beta hCG and ultrasound. [facility] EXAMINATION: FIRST TRIMESTER OBSTETRIC ULTRASOUND 07/02/2024 TECHNIQUE: Transvaginal first trimester obstetric pelvic duplex ultrasound was performed with real-time imaging, color flow Doppler imaging, and spectral analysis. COMPARISON: None HISTORY: ORDERING SYSTEM PROVIDED HISTORY: Vaginal bleeding in TECHNOLOGIST PROVIDED HISTORY: Vaginal bleeding in FINDINGS: Uterus: 8.5 x 3.8 x 2.5 cm Gestational Sac(s): None Yolk Sac: None Embryo(<11wk)/Fetu s(>=11wk): None [place] Rump Length: None Rate of Cardiac Activity none Right ovary: 2.5 x 1.7 x 1.9 cm Left ovary: 3.3 x 1.8 x 3.1 cm Flow is preserved to the ovaries with appropriate waveforms. Free fluid: None [facility] Carroll Stout MD - 07/02/2024 EXAMINATION: FIRST TRIMESTER OBSTETRIC ULTRASOUND 07/02/2024 TECHNIQUE: Transvaginal first trimester obstetric pelvic duplex ultrasound was performed with real-time imaging, color flow Doppler imaging, and spectral analysis. COMPARISON: None HISTORY: ORDERING SYSTEM PROVIDED HISTORY: Vaginal bleeding in TECHNOLOGIST PROVIDED HISTORY: Vaginal bleeding in FINDINGS: Uterus: 8.5 x 3.8 x 2.5 cm Gestational Sac(s): None Yolk Sac: None Embryo(<11wk)/Fetu s(>=11wk): None [place] Rump Length: None Rate of Cardiac Activity none Right ovary: 2.5 x 1.7 x 1.9 cm Left ovary: 3.3 x 1.8 x 3.1 cm Flow is preserved to the ovaries with appropriate waveforms. Free fluid: None IMPRESSION: of unknown location. Differential diagnosis of a of unknown location with hCG < 3000 includes nonvisualized early intrauterine , nonvisualized ectopic , or an early loss that has completely passed. Recommend follow up as indicated with beta hCG and ultrasound. [facility] Radiology Study observation (narrative) [facility] US OB TRANSVAGINALOrdered By : Carroll Stout on 07-02-2024 [facility] Work Phone: Urinalysis with Reflex to Cu ltureon 07-02-2024 Bilirubin Ql (U) Negative NEGATIVE [facility] Clarity (U) SLIGHTLY CLOUDY Abnormal Clear [facility] urs [facility] Color (U) Yellow Yellow [facility] Glucose Test strip (U) [Mass/Vol] Negative NEGATIVE mg/dL [facility] Hemoglobin Auto test strip Q l (U) 3+ Abnormal NEGATIVE [facility] Interpretation and review of laboratory results Abnormal [facility] Ketones (U) [Mass/Vol] TRACE Abnormal NEGAT MICHELE mg/dL [facility] Leukocyte esterase Test stri p Ql (U) Negative NEGATIVE [facility] Nitrite Ql (U) Negative NEGATIVE [place] [facility] pH (U) 6 [pH] 5.0 - 9.0 [facility] Protein (U) [Mass/Vol] 1+ Abnormal NEGAT MICHELE mg/dL [facility] Specific gravity (U) [Rel density] 1.025 High 1.010 - 1.020 [facility] Urobilinogen Qn (U) Normal 0.0 - 1. 0 EU/dL [facility] Urinalysis,Microon 5 Bacteria 1+ Abnormal [facility] Comment on above: Performed By: #### U AX, UMALENO ####[facility] [place] , [place] [phone] Lab Director: Augustine Don MD Epithelial cells LM Ql (Urin e sed) 2 TO 5 Normal 0-25 [facility] Comment on above: Performed By: #### U AX, UMICAO ####[facility] [place] , [place] [address] lab Director: Augustine Don MD Mucus Strands 2+ Abnormal [facility] Comment on above: Performed By: #### U AX, UMICAO ####[facility] [place] [address] Lab Director: Augustine oDn MD Urine RBC's 20 TO 50 Normal 0-2 [facility] Comment on above: Performed By: #### U AX, UMICAO ####[facility] [place] [address] Lab Director: Augustine Don MD Urine WBC's 2 TO 5 Normal 0-5 [facility] Comment on above: Performed By: #### U AX, UMICAO ####[facility] [place] [address] lab Director: Augustine Don MD AMYLASEon 06-30-2024 Amylase [Catalytic activity/Vol] 25 U/L Low 28-100 [facility] Comment on above: Performed By: #### C BCA, 41797-7, CMP, 94670-3, 26449-8, THYR #### [facility] ([id number]) [address] [place] [address], [place] [address] HCG-BETA, SERUMon 06-30-2024 HCG.beta subunit Qn 36 m[IU]/mL Normal [facility] Comment on above: Order Comment: WEEKS (SINCE LMP) MIU/mL3 WEEKS 5 - 504 WEEKS 5 - 4265 WEEKS 18 - 7,3406 WEEKS 1,080 - 56,5007-8 WEEKS 7,650 - 229,0009-12 WEEKS 25,700 - 288,74355-78 WEEKS 13,300 - 254,68496-08 WEEKS 4,060 - 165,28668-80 WEEKS 3,640 - 117,000MALES AND NON- FEMALES - <5 MIU/mLThis test has been FDA approved for use inpregnancy only. Elevated levels are notnecessarily diagnostic for trophoblasticor nontrophoblastic neoplasms. Performed By: #### C BCA, 86806-1, CMP, 22905-0, 89763-6, THYR #### [facility] ([id number]) [address] [facility], [place] [address] US OB TRANSVAGINALon 025 US OB TRANSVAGINAL EXAMINATION: FIRST TRIMESTER OBSTETRIC ULTRASOUND 06/28/2024 TECHNIQUE: Transvaginal first trimester obstetric pelvic duplex ultrasound was performed with real-time imaging, color flow Doppler imaging. COMPARISON: None HISTORY: ORDERING SYSTEM PROVIDED HISTORY: r/o ectopic TECHNOLOGIST PROVIDED HISTORY: r/o ectopic FINDINGS: Uterus: 8.1 x 4.8 x 4.2 cm Gestational Sac(s): Not visualized. Endometrium measures up to 1.2 cm. Yolk Sac: Not visualized Embryo(<11wk)/Fetu s(>=11wk): Not visualized Right ovary: 3.2 x 3.0 x 1.5 cm Left ovary: 2.8 x 2.7 x 1.9 cm with a 1.2 cm corpus luteum. Free fluid: Small volume free fluid likely physiologic. IMPRESSION: of unknown location. Differential diagnosis of a of unknown location with hCG < 3000 includes nonvisualized early intrauterine , nonvisualized ectopic , or an early loss that has completely passed. Recommend follow up as indicated with beta hCG and ultrasound. Unremarkable ovaries. Interpreted by: Sumi Ayers MD Signed by: Sumi Ayers MD 06/30/24 Final result Normal [facility] POCT , urineon 06-02 Beta HCG ( test) Ql (U) Positive [facility] Internal Last Trimmer Check Completed and Passed Yes [facility] Interpretation and review of laboratory results Abnormal [facility] CBC with Auto Differentialon 06-28-2024 Basophils (Bld) [#/Vol] 0.03 10*3/uL [facility] Basophils/100 WBC (Bld) 1 % 0 - 2 % B on [facility] Eosinophils (Bld) [#/Vol] 0.08 10*3/uL [facility] Eosinophils/100 WBC (Bld) 2 % 1 - 4 % [facility] Erythrocyte distribution width (RBC) [Ratio] 14.4 % 11.8 - 14.4 % [facility] Hematocrit (Bld) [Volume fraction] 38.5 % 36.3 - 47.1 % [facility] Hemoglobin (Bld) [Mass/Vol] 12.4 g/dL 11.9 - 15.1 g/dL [facility] Immature granulocytes (Bld) [#/Vol] [facility] Immature granulocytes/100 WB C (Bld) 0 % 0 [facility] Interpretation and review of laboratory results Abnormal [facility] Lymphocytes/100 WBC (Bld) 24 % Low 25 - 45 % [facility] Lymphocytes/100 WBC (Bld) 1.3 % [facility] MCH (RBC) [Entitic mass] 25.3 pg 25. 2 - 33.5 pg [facility] MCHC (RBC) [Mass/Vol] 32.2 g/dL 28.4 - 34.8 g/dL [facility] MCV (RBC) [Entitic vol] 78.6 fL Low 82.6 - 102.9 fL [facility] Monocytes/100 WBC (Bld) 9 % High 2 - 8 % B on [facility] Monocytes/100 WBC (Bld) 0.5 % B on [facility] Neutrophils/100 WBC (Bld) 64 % 34 - 64 % [facility] Nucleated RBC/100 WBC (Bld) [Ratio] 0 % 0.0 per 100 WBC [facility] Platelet mean volume (Bld) [Entitic vol] 11.3 fL 8.1 - 13.5 fL [facility] Platelets (Bld) [#/Vol] 263 10*3/uL [facility] RBC (Bld) [#/Vol] 4.9 10*6/uL 3.95 - 5.11 m/uL [facility] Segmented neutrophils/100 WB C (Bld) 3.56 % [facility] WBC other (Bld) [#/Vol] 5.5 B on [facility] CBC with Diffon 06-28-2024 Abs. Basophil 0.03 k/uL Normal 0.00-0.20 [facility] Comment on above: Performed By: #### R EJEC, CDP, HCG #### [address] [place], [place] [address] [employer]: Augustine Don MD Abs.Imm.Granulocyte <0.03 Normal 0.00-0.30 [facility] Comment on above: Performed By: #### R JASON CDP, HCG #### [address] [place] [address] [employer]: Augustine Don MD Abs.Neutrophil (Seg) 3.56 k/uL Normal 1.50-8.10 [facility] Comment on above: Performed By: #### R JUAN GOMEZ, HCG #### [address] [place] [address] [employer]: Augustine Don MD Basophils/100 WBC (Bld) 1 % Normal 0-2 [facility] Comment on above: Performed By: #### R JUAN GOMEZ, HCG #### [address] [place], [place] [address] [employer]: Augustine Don MD Eosinophils (Bld) [#/Vol] 0.08 10*3/uL Normal 0.00-0.4 4 [facility] Comment on above: Performed By: #### R JUAN GOMEZ, HCG #### [address] [place] [address] [employer]: Augustine Don MD Eosinophils/100 WBC (Bld) 2 % Normal 1-4 [facility] Comment on above: Performed By: #### R JUAN GOMEZ, HCG #### [address] [place] [address] [employer]: Augustine Don MD Erythrocyte distribution width (RBC) [Ratio] 14.4 % Normal 11.8-14.4 [facility] Comment on above: Performed By: #### R JUAN GOMEZ, HCG #### [address] [place], [facility] [employer]: Augustine Don MD Hematocrit (Bld) [Volume fraction] 38.5 % Normal 36.3-47.1 [facility] Comment on above: Performed By: #### R JASON, CDP, HCG #### [address] [place] [id number] [employer]: Augustine Don MD Hemoglobin (Bld) [Mass/Vol] 12.4 g/dL Normal 11.9-15. 1 [facility] Comment on above: Performed By: #### R JUAN GOMEZ, HCG #### [address] [place] [address] [employer]: Augustine Don MD Immature granulocytes/100 WB C (Bld) 0 % Normal 0 [facility] Comment on above: Performed By: #### R JUAN GOMEZ, HCG #### [address] [place] [address] [employer]: Augustine Don MD Lymphocytes (Bld) [#/Vol] 1.30 10*3/uL Normal 1.10-3.7 0 [facility] Comment on above: Performed By: #### R JASON CDP, HCG #### [address] [place] [facility] [employer]: Augustine Don MD Lymphocytes/100 WBC (Bld) 24 % Low 25-45 [facility] Comment on above: Performed By: #### R JASON CDP, HCG #### [address] [place] [facility] [employer]: Augustine Don MD MCH (RBC) [Entitic mass] 25.3 pg Normal 25.2-33.5 [facility] Comment on above: Performed By: #### R JASON CDP, HCG #### [address] [place] [facility] [employer]: Augustine Don MD MCHC (RBC) [Mass/Vol] 32.2 g/dL Normal 28.4-34.8 [facility] Comment on above: Performed By: #### R JUAN GOMEZ, HCG #### [facility] [address] [place] [address] [place] [address] [employer]: Augustine Don MD MCV (RBC) [Entitic vol] 78.6 fL Low 82.6-102.9 [facility] Comment on above: Performed By: #### R JUAN GOMEZ, HCG #### [address] [place], [place] [address]83 [employer]: Augustine Don MD Monocytes (Bld) [#/Vol] 0.50 10*3/uL Normal 0.10-1.40 [facility] Comment on above: Performed By: #### JUAN JUAREZ, HCG #### [address] [place], [place] [address] [employer]: Augustine Don MD Monocytes/100 WBC (Bld) 9 % High 2-8 [facility] Comment on above: Performed By: #### JUAN JUAREZ, HCG #### [address] [place] [address] [employer]: Augustine Don MD Neutrophil (Seg) 64 % Normal 34-64 [facility] Comment on above: Performed By: #### JUAN JUAREZ, HCG #### [facility] [address] [place] [address] [place] [place], [place] [address]83 [employer]: Augustine Don MD NRBC Automated 0.0 per 100 WBC Normal 0.0 [facility] Comment on above: Performed By: #### R JUAN GOMEZ, HCG #### [facility] [address] [place] [address] [place], [place] [address]83 [employer]: Augustine Don MD Platelet mean volume (Bld) [Entitic vol] 11.3 fL Normal 8.1-13.5 [facility] Comment on above: Performed By: #### R JUAN GOMEZ, HCG #### [facility] [address] [place] [address] [place], [place] [address]83 [employer]: Augustine Don MD Platelets (Bld) [#/Vol] 263 10*3/uL Normal 138-453 [facility] Comment on above: Performed By: #### R JUAN GOMEZ, HCG #### [facility] [address] [place] [address] [employer]: Augustine Don MD RBC (Bld) [#/Vol] 4.90 10*6/uL Normal 3.95-5.11 [facility] Comment on above: Performed By: #### JUAN JUAREZ, HCG #### [facility] [address] [place] [address] [employer]: Augustine Don MD WBC (Bld) [#/Vol] 5.5 10*3/uL Normal 4.5-13.5 [facility] Comment on above: Performed By: #### JUAN JUAREZ, HCG #### [address] [place], [place] [address] [employer]: Augustine Don MD Comp Metabolic Profon 2024 Albumin [Mass/Vol] 3.9 g/dL Normal 3.5-5.2 [facility] Comment on above: Performed By: #### L IP, CP #### [facility] [address] [place] [address] [place], [place] [address]83 [employer]: Augustine Don MD Albumin/Glob Ratio 1.5 Normal 1.0-2.5 [facility] Comment on above: Performed By: #### L IP, CP #### [facility] [address] [place] [address] [place], [place] [address]83 [employer]: Augustine Don MD Alkaline Phos 92 U/L Normal 35-104 [facility] Comment on above: Performed By: #### L IP, CP #### [facility] [address] [place] [address] [employer]: Augustine Don MD ALT [Catalytic activity/Vol] 26 U/L Normal 10-35 [facility] Comment on above: Performed By: #### L IP, CP #### [facility] [address] [place] [address] [employer]: Augustine Don MD Anion gap [Moles/Vol] 13 mmol/L Normal 9-16 [facility] Comment on above: Performed By: #### L IP, CP #### [address] [place], [place] [address] [employer]: Augustine Don MD AST [Catalytic activity/Vol] 27 U/L Normal 10-35 [facility] Comment on above: Performed By: #### L IP, CP #### [address] [place], [place] [address]83 [employer]: Augustine Don MD Bilirubin [Mass/Vol] 0.2 mg/dL Normal 0.00-1.20 [facility] Comment on above: Performed By: #### L IP, CP #### [facility] [address] [place] [address] [place] [place], [place] [address] [employer]: Augustine Don MD BUN/CRE Ratio 19 Normal 9-20 [facility] Comment on above: Performed By: #### L IP, CP #### [address] [place] [address] [employer]: Augustine Don MD Calcium [Mass/Vol] 8.3 mg/dL Low 8.6-10.4 [facility] Comment on above: Performed By: #### L IP, CP #### [facility] [address] [place] [address] [employer]: Augustine Don MD Chloride [Moles/Vol] 106 mmol/L Normal 98-107 [facility] Comment on above: Performed By: #### L IP, CP #### [facility] [address] [place] [address] [place], [place] [address] [employer]: Augustine Don MD CO2 [Moles/Vol] 20 mmol/L Normal 20-31 [facility] Comment on above: Performed By: #### L IP, CP #### [facility] [address] [place] [address] [employer]: Augustine Don MD Creatinine [Mass/Vol] 0.7 mg/dL Normal 0.50-0.90 [facility] Comment on above: Performed By: #### L IP, CP #### [address] [place] [address] [employer]: Augustine Don MD GFR/1.73 sq M.predicted nanda g non-blacks MDRD (S/P/Bld) [Vol rate/Area] mL/min/{1.73_m2} Normal >60 [facility] Comment on above: Result Comment: These results are not intended for use in patients <18 years of age. eGFR results are calculated without a race factor using the 2020 CKD-EPI equation. Careful clinical correlation is recommended, particularly when comparing to results calculated using previous equations. The CKD-EPI equation is less accurate in patients with extremes of muscle mass, extra-renal metabolism of creatine, excessive creatine ingestion, or following therapy that affects renal tubular secretion. Performed By: #### L IP, CP #### [address] [place] [address] [employer]: Augustine Don MD Glucose [Mass/Vol] 77 mg/dL Normal 74-99 [facility] Comment on above: Performed By: #### L IP, CP #### [facility] [address] [place] [address] [employer]: Augustine Don MD Potassium [Moles/Vol] 3.7 mmol/L Normal 3.7-5.3 [facility] Comment on above: Performed By: #### L IP, CP #### [facility] [address] [place] [address] [place], [place] [address] [employer]: Augustine Don MD Protein [Mass/Vol] 6.5 g/dL Low 6.6-8.7 [facility] Comment on above: Performed By: #### L IP, CP #### [facility] [address] [place] [address] [employer]: Augustine Don MD Sodium [Moles/Vol] 139 mmol/L Normal 136-145 [facility] Comment on above: Performed By: #### L IP, CP #### [facility] [address] [place] [address] [employer]: Augustine Don MD Urea nitrogen [Mass/Vol] 13 mg/dL Normal 6-20 [facility] Comment on above: Performed By: #### L IP, CP #### [facility] [address] [place] [address] [employer]: Augustine Don MD Comprehensive Metabolic Pane [facility] 06-28-2024 Albumin [Mass/Vol] 3.9 g/dL 3.5 - 5.2 g/dL [facility] Albumin/Globulin [Mass ratio] 1.5 {ratio} 1.0 - 2.5 [facility] ALP [Catalytic activity/Vol] 92 U/L 35 - 104 U/L [facility] ALT [Catalytic activity/Vol] 26 U/L 10 - 35 U/L [facility] Anion gap [Moles/Vol] 13 mmol/L 9 - 16 mmol/L [facility] AST [Catalytic activity/Vol] 27 U/L 10 - 35 U/L [facility] Bilirubin [Mass/Vol] 0.2 mg/dL 0.00 - 1.20 mg/dL [facility] Calcium [Mass/Vol] 8.3 mg/dL Low 8.6 - 10. 4 mg/dL [facility] Chloride [Moles/Vol] 106 mmol/L 98 - 10 7 mmol/L [facility] CO2 [Moles/Vol] 20 mmol/L 20 - 31 mmol/L [facility] Creatinine [Mass/Vol] 0.7 mg/dL 0.50 - 0.90 mg/dL [facility] EstGabriella Rate - PINF [facility] Comment on above: These results are not intended for use in patients <18 years of age. eGFR results are calculated without a race factor using the 2020 CKD-EPI equation. Careful clinical correlation is recommended, particularly when comparing to results calculated using previous equations. The CKD-EPI equation is less accurate in patients with extremes of muscle mass, extra-renal metabolism of creatine, excessive creatine ingestion, or following therapy that affects renal tubular secretion. Glucose [Mass/Vol] 77 mg/dL 74 - 99 mg/dL [facility] Interpretation and review of laboratory results Abnormal [facility] Potassium [Moles/Vol] 3.7 mmol/L 3.7 - 5.3 mmol/L [facility] Protein [Mass/Vol] 6.5 g/dL Low 6.6 - 8.7 g/dL [facility] Sodium [Moles/Vol] 139 mmol/L 136 - 145 mmol/L [facility] Urea nitrogen [Mass/Vol] 13 mg/dL 6 - 20 mg/dL [facility] Urea nitrogen/Creatinine [Mass ratio] 19 mg/mg 9 - 20 [facility] HCG Qualitative, Serumon HCG ( test) Ql Positive Abnormal NEGATIVE B [facility] Comment on above: If HCG results do not concur with clinical observations, additional testing to confirm result is recommended. This test is not labeled for use as a tumor marker. [employer] has confirmed the use of plasma for this test. This has not been cleared or approved by the U.S. Food and Drug Administration. The FDA has determined that such clearance is not necessary. Interpretation and review of laboratory results Abnormal [facility] HCG Screen, Bloodon 06-29-19 25 HCG Screen, Blood Positive Abnormal [facility] Comment on above: Result Comment: If HCG results do not concur with clinical observations, additional testing to confirm result is recommended. This test is not labeled for use as a tumor marker. [facility] has confirmed the use of plasma for this test. This has not been cleared or approved by the U.S. Food and Drug Administration. The FDA has determined that such clearance is not necessary. Performed By: #### R EJEC, CDP, HCG ####[facility] [place] [address] Lab Director: Augustine Don MD HCG, Quanton 06-28-2024 HCG, Quant 37.2 mIU/mL High 0-7 [facility] Comment on above: Result Comment: Non-preg premeno <=5 Postmeno <=8 Male <=3 If HCG results do not concur with clinical observations, additional testing to confirm results is recommended. Performed By: #### B HCG #### [facility] [address] [place] [address] [employer]: Augustine Don MD HCG, Quantitative, on 06-28-2024 HCG.beta subunit Qn 37.2 m[IU]/mL High [facility] Comment on above: Non-preg premeno <=5 Postmeno <=8 Male <=3 If HCG results do not concur with clinical observations, additional testing to confirm results is recommended. Interpretation and review of laboratory results Abnormal [facility] Lipaseon 06-28-2024 Lipase [Catalytic activity/Vol] 17 U/L 13 - 60 U/L [facility] Lipase [Catalytic activity/Vol] 17 U/L Normal -60 [facility] Comment on above: Performed By: #### L IP, CP #### [facility] [address] [place] [address] [employer]: Augustine Don MD No Panel Informationon 06-28 [facility] Specimen Rejectionon 025 Reason for rejection Unable to perform testing: Specimen hemolyzed. Normal [facility] Comment on above: Performed By: #### R JASON CDP, HCG ####[facility] [place] , [place] [address] lab Director: Augustine Don MD Source of sample .BLOOD Normal [facility] Comment on above: Performed By: #### Bala GOMEZ CDP, HCG ####[facility] [place] , [place] [address] lab Director: Augustine Don MD Test ordered cp,lip Normal [facility] Comment on above: Performed By: #### JUAN JUAREZ, HCG ####[address] , [place] [address] lab Director: Augustine Don MD CBC WITH AUTO DIFFERENTIALon 06-27-2024 BASOPHILS ABSOLUTE COUNT (10*3/UL) BY AUTOMATED COUNT 0.0 10*3/uL Normal [facility] Comment on above: Performed By: #### C IRAIS, 45230-3, CMP, 83694-8, 34260-5, THYR #### [facility] ([id number]) [address] [place] [address] BASOPHILS RELATIVE PERCENT B Y AUTOMATED COUNT 0.9 % Normal [facility] Comment on above: Performed By: #### C BCA, 26925-9, CMP, 99788-2, 69294-2, THYR #### [facility] ([id number]) [address] [place] [address] 10582 CELLAVISION DIFFERENTIAL TYPE AUTOMATED DIFFERENTIAL Normal [facility] Comment on above: Performed By: #### C BCA, 02070-2, CMP, 91309-4, 88199-7, THYR #### [facility] ([id number]) [address] [place] [address]55[address] Eosinophils (Bld) [#/Vol] 0.1 10*3/uL Normal [facility] Comment on above: Performed By: #### C BCA, 40028-1, CMP, 48634-7, 60775-9, THYR #### [facility] ([id number]) [address] [place] [address] 93133 EOSINOPHILS RELATIVE PERCENT BY AUTOMATED COUNT 1.2 % Normal [facility] Comment on above: Performed By: #### C BCA, 12902-7, CMP, 71075-6, 01665-8, THYR #### [facility] ([id number]) [address] [place], [place] [address] Erythrocyte distribution width (RBC) [Ratio] 15.8 % High 11.5-15 [facility] Comment on above: Performed By: #### Margarita BRAXTON, 28001-7, CMP, 48046-1, 85609-6, THYR #### [facility] ([id number]) [address] [place] [address] Hematocrit (Bld) [Volume fraction] 36.8 % Normal 35-47 [facility] Comment on above: Performed By: #### C BCA, 32486-7, CMP, 18110-7, 49565-0, THYR #### [facility] ([id number]) [address] [place] [address]8527 Hemoglobin (Bld) [Mass/Vol] 12.2 g/dL Normal 11.7-15. 5 [facility] Comment on above: Performed By: #### C BCA, 32056-6, CMP, 53385-4, 22450-3, THYR #### [facility] ([id number]) [address] [place] [address] 16542 LYMPHOCYTES ABSOLUTE COUNT (10*3/UL) BY AUTOMATED COUNT 1.0 10*3/uL Normal [facility] Comment on above: Performed By: #### C BCA, 45787-0, CMP, 18990-1, 90572-3, THYR #### [facility] ([id number]) [address] [place] [address] 43269 LYMPHOCYTES RELATIVE PERCENT BY AUTOMATED COUNT 22.7 % Normal [facility] Comment on above: Performed By: #### C BCA, 19969-8, CMP, 71833-5, 51585-7, THYR #### [facility] ([id number]) [address] [place] [address] 48488 MCH (RBC) [Entitic mass] 25.3 pg Low 27-34 [facility] Comment on above: Performed By: #### Margarita BRAXTON, 35843-9, CMP, 37251-5, 97128-7, THYR #### [facility] ([id number]) [address] [place] [address]132 MCHC (RBC) [Mass/Vol] 33.2 g/dL Normal 32-36 [facility] Comment on above: Performed By: #### Margarita BRAXTON, 84102-0, CMP, 66425-8, 20336-5, THYR #### [facility] ([id number]) [address] [place] [address] 00286 MCV (RBC) [Entitic vol] 76 fL Low 80-100 [facility] Comment on above: Performed By: #### Margarita BCA, 30752-8, CMP, 57406-9, 19678-5, THYR #### [facility] ([id number]) [address] [place] [address] 96533 MONOCYTES ABSOLUTE COUNT (10*3/UL) BY AUTOMATED COUNT 0.5 10*3/uL Normal [facility] Comment on above: Performed By: #### Margarita BCA, 49175-6, CMP, 56727-8, 49091-0, THYR #### [facility] ([id number]) [address] [place] [address] [place] [address] MONOCYTES RELATIVE PERCENT B Y AUTOMATED COUNT 12.0 % Normal [facility] Comment on above: Performed By: #### C BCA, 03270-0, CMP, 93096-1, 31592-2, THYR #### [facility] ([id number]) [address] [place] [address] 12102 NEUTROPHILS ABSOLUTE COUNT B Y AUTOMATED COUNT 2.7 10*3/uL Normal [facility] Comment on above: Performed By: #### C BCA, 55953-0, CMP, 21732-3, 29327-5, THYR #### [facility] ([id number]) [address] [place] [address] 06412 NEUTROPHILS RELATIVE PERCENT BY AUTOMATED COUNT 63.2 % Normal [facility] Comment on above: Performed By: #### Margarita BCA, 34242-7, CMP, 77436-4, 20809-9, THYR #### [facility] ([id number]) [address] [place] [address] 81831 Platelet mean volume (Bld) [Entitic vol] 9.6 fL Normal 7-12 [facility] Comment on above: Performed By: #### Margarita BCA, 45978-9, CMP, 83499-7, 94670-9, THYR #### [facility] ([id number]) [address] [place] [address] 48808 Platelets (Bld) [#/Vol] 253 10*3/uL Normal 150-450 [facility] Comment on above: Performed By: #### Margarita BCA, 85093-9, CMP, 39630-2, 83194-9, THYR #### [facility] ([id number]) [address] [place] [address] 35929 RBC COUNT 4.83 X10E12/L Normal 3.8-5.2 [facility] Comment on above: Performed By: #### Margarita BCA, 68409-8, CMP, 05160-9, 19072-1, THYR #### [facility] ([id number]) [address] [place] [address] 12473 WBC (Bld) [#/Vol] 4.3 10*3/uL Normal 4-11 [facility] Comment on above: Performed By: #### C BCA, 27348-0, CMP, 33823-3, 39112-0, THYR #### [facility] ([id number]) [address] [place] [address] 56849 COMPREHENSIVE METABOLIC PANE [employer] 06-27-2024 Albumin [Mass/Vol] 4.2 g/dL Normal 3.2-5.3 [facility] Comment on above: Performed By: #### C BCA, 30365-2, CMP, 35613-8, 14268-5, THYR #### [facility] ([id number]) [address] [place] [address] 63507 ALP [Catalytic activity/Vol] 97 U/L Normal 39-130 [facility] Comment on above: Performed By: #### C BCA, 80756-7, CMP, 39858-4, 34728-5, THYR #### [facility] ([id number]) [address] [place] [address] 92852 ALT [Catalytic activity/Vol] 28 U/L Normal <=31 [facility] Comment on above: Performed By: #### C BCA, 52721-9, CMP, 83331-6, 45563-5, THYR #### [facility] ([id number]) [address] [place] [address] 99390 Anion gap [Moles/Vol] 8 mmol/L Normal 5-15 [facility] Comment on above: Performed By: #### C BCA, 99055-5, CMP, 23116-2, 24166-6, THYR #### [facility] ([id number]) [address] [place] [address] [place] [address] AST [Catalytic activity/Vol] 27 U/L Normal <=41 [facility] Comment on above: Performed By: #### C BCA, 98322-4, CMP, 55108-3, 70630-6, THYR #### [facility] ([id number]) [address] [place] [address] 71242 Bilirubin [Mass/Vol] 0.6 mg/dL Normal 0.3-1.2 [facility] Comment on above: Performed By: #### C BCA, 52678-7, CMP, 65225-8, 13683-7, THYR #### [facility] ([id number]) [address] [place] [address] 41985 Calcium [Mass/Vol] 9.2 mg/dL Normal 8.5-10.5 [facility] Comment on above: Performed By: #### C BCA, 95890-4, CMP, 55851-0, 16967-8, THYR #### [facility] ([id number]) [address] [place] [address] 14973 Chloride [Moles/Vol] 104 mmol/L Normal 98-109 [facility] Comment on above: Performed By: #### C BCA, 08810-6, CMP, 52811-8, 18368-0, THYR #### [facility] ([id number]) [address] [place] [address] 28153 CO2 [Moles/Vol] 23 mmol/L Normal 22-32 [facility] Comment on above: Performed By: #### C BCA, 03068-5, CMP, 38202-5, 40186-4, THYR #### [facility] ([id number]) [address] [place] [address] 22337 Creatinine [Mass/Vol] 0.64 mg/dL Normal 0.40-1.00 [facility] Comment on above: Result Comment: METH OD TRACEABLE TO IDMS STANDARD Performed By: #### C IRAIS, 43837-2, CMP, 34074-4, 74743-6, THYR #### [facility] ([id number]) [address] [place] [address] 08429 EGFR (CKD-EPI) NON-RACE DEPENDENT >^90 Normal >=60 [facility] Comment on above: Result Comment: eGFR not reported due to non-numeric value for Creatinine. Reported eGFR is based on the CKD-EPI 2021 equation that does not use a race coefficient. Performed By: #### C BCA, 02651-8, CMP, 34983-6, 92295-3, THYR #### [facility] ([id number]) [address] [place] [address] 82689 Glucose [Mass/Vol] 97 mg/dL Normal 65-99 [facility] Comment on above: Performed By: #### C BCA, 06892-4, CMP, 40993-8, 84170-5, THYR #### [facility] ([id number]) [address] [place] [address] 86281 Potassium [Moles/Vol] 4.1 mmol/L Normal 3.5-5.0 [facility] Comment on above: Performed By: #### C BCA, 11583-7, CMP, 89193-3, 28734-8, THYR #### [facility] ([id number]) [address] [place] [address] 40183 Protein [Mass/Vol] 7.9 g/dL Normal 6.0-8.0 [facility] Comment on above: Performed By: #### C BCA, 21513-4, CMP, 03967-2, 74209-0, THYR #### [facility] ([id number]) [address] [place] [address] 09753 Sodium [Moles/Vol] 135 mmol/L Normal 134-146 [facility] Comment on above: Performed By: #### C BCA, 16938-9, CMP, 51328-4, 77085-8, THYR #### [facility] ([id number]) [address] [place] [address] 64430 Urea nitrogen [Mass/Vol] 13 mg/dL Normal 5-23 [facility] Comment on above: Performed By: #### C BCA, 39237-5, CMP, 31909-9, 64676-0, THYR #### [facility] ([id number]) [address] [place] [address] 54163 TROP I, HIGH SENSITIVITY 1 H [facility] 06-27-2024 TROPONIN I, HIGH SENSITIVITY <^2 Normal <16 [facility] Comment on above: Performed By: #### C BCA, 58918-9, CMP, 67001-2, 01608-6, THYR #### [facility] ([id number]) [address] [place] [address] 39751 BASIC METABOLIC PANLon 04-13 Anion gap [Moles/Vol] 8 mmol/L Normal 5-15 [facility] Comment on above: Performed By: #### C BCA, 25728-1, CMP, 83538-6, 45050-9, THYR #### [facility] ([id number]) [address] [place] [address] 19738 Calcium [Mass/Vol] 9.3 mg/dL Normal 8.5-10.5 [facility] Comment on above: Performed By: #### C BCA, 10246-0, CMP, 99266-5, 53614-5, THYR #### [facility] ([id number]) [address] [place] [address] 54906 Chloride [Moles/Vol] 107 mmol/L Normal 98-109 [facility] Comment on above: Performed By: #### C BCA, 65983-1, CMP, 58635-9, 19236-7, THYR #### [facility] ([id number]) [address] [place] [address] 36354 CO2 [Moles/Vol] 24 mmol/L Normal 22-32 [facility] Comment on above: Performed By: #### C BCA, 62806-4, CMP, 87491-5, 02622-0, THYR #### [facility] ([id number]) [address] [place] [address] 01638 Creatinine [Mass/Vol] 0.56 mg/dL Normal 0.40-1.00 [facility] Comment on above: Result Comment: METH OD TRACEABLE TO IDMS STANDARD Performed By: #### C BCA, 09792-5, CMP, 78657-4, 96051-4, THYR #### [facility] ([id number]) [address] [place] [address] 46280 eGFR (CKD-EPI) NON-RACE DEPENDENT >90 Normal >59 [facility] Comment on above: Result Comment: Reported eGFR is based on the CKD-EPI 2020 equation that does not use a race coefficient. Performed By: #### C BCA, 66589-0, CMP, 81219-9, 00006-9, THYR #### [facility] ([id number]) [address] [place] [address] 89150 Glucose [Mass/Vol] 99 mg/dL Normal 65-99 [facility] Comment on above: Performed By: #### C BCA, 53281-0, CMP, 31189-4, 09965-6, THYR #### [facility] ([id number]) [address] [place] [address] 80148 Potassium [Moles/Vol] 3.3 mmol/L Low 3.5-5.0 [facility] Comment on above: Performed By: #### C BCA, 82072-4, CMP, 72872-5, 43484-9, THYR #### [facility] ([id number]) [address] [place] [address] 87491 Sodium [Moles/Vol] 139 mmol/L Normal 134-146 [facility] Comment on above: Performed By: #### C BCA, 18478-1, CMP, 68544-6, 22508-3, THYR #### [facility] ([id number]) [address] [place] [address] 48266 Urea nitrogen [Mass/Vol] 14 mg/dL Normal 5-23 [facility] Comment on above: Performed By: #### C BCA, 82398-0, CMP, 76951-8, 18137-2, THYR #### [facility] ([id number]) [address] [place] [address] 21939 CBC AND AUTO DIFFon 04-13-19 25 ABSOLUTE BASOPHIL 0.1 X10E9/L Normal 0.0-0.2 [facility] Comment on above: Performed By: #### C BCA, 44406-1, CMP, 91432-3, 54845-3, THYR #### [facility] ([id number]) [address] [place] [address] 97434 ABSOLUTE NEUTROPHIL 3.1 X10E9/L Normal 1.5-6.6 [facility] Comment on above: Performed By: #### C BCA, 76132-2, CMP, 64840-6, 92998-8, THYR #### [facility] ([id number]) [address] [place] [address] 80877 Basophils/100 WBC (Bld) 1.4 % Normal [facility] Comment on above: Performed By: #### C BCA, 01346-3, CMP, 75234-6, 36569-5, THYR #### [facility] ([id number]) [address] [place] [address] 24628 Eosinophils (Bld) [#/Vol] 0.1 10*3/uL Normal 0.0-0.4 [facility] Comment on above: Performed By: #### Margarita BRAXTON, 86374-1, CMP, 89356-9, 28835-0, THYR #### [facility] ([id number]) [address] [place] [address] 00490 Eosinophils/100 WBC (Bld) 1.9 % Normal [facility] Comment on above: Performed By: #### Margarita BRAXTON, 66744-9, CMP, 91608-3, 32323-5, THYR #### [facility] ([id number]) [address] [place] [address] 98338 Erythrocyte distribution width (RBC) [Ratio] 15.7 % High 11.5-15.0 [facility] Comment on above: Performed By: #### Margarita BRAXTON, 04049-7, CMP, 37597-5, 25407-1, THYR #### [facility] ([id number]) [address] [place] [address] 40158 Hematocrit (Bld) [Volume fraction] 36.0 % Normal 35-47 [facility] Comment on above: Performed By: #### Margarita BRAXTON, 19406-3, CMP, 83027-5, 69809-9, THYR #### [facility] ([id number]) [address] [place] [address] 21843 Hemoglobin (Bld) [Mass/Vol] 11.8 g/dL Normal 11.7-15. 5 [facility] Comment on above: Performed By: #### Margarita BRAXTON, 52995-3, CMP, 86721-7, 42382-5, THYR #### [facility] ([id number]) [address] [place] [address] 48666 Lymphocytes (Bld) [#/Vol] 2.6 10*3/uL Normal 1.0-3.5 [facility] Comment on above: Performed By: #### C BCA, 38484-8, CMP, 40660-7, 39178-7, THYR #### [facility] ([id number]) [address] [place] [address] 81852 Lymphocytes/100 WBC (Bld) 38.6 % Normal [facility] Comment on above: Performed By: #### C BCA, 53086-2, CMP, 68400-0, 21276-0, THYR #### [facility] ([id number]) [address] [place] [address] 42638 MCH (RBC) [Entitic mass] 24.8 pg Low 27-34 [facility] Comment on above: Performed By: #### Margarita BCA, 81831-8, CMP, 77572-7, 26236-4, THYR #### [facility] ([id number]) [address] [place] [address] 20512 MCHC (RBC) [Mass/Vol] 32.7 g/dL Normal 32-36 [facility] Comment on above: Performed By: #### C BCA, 55776-1, CMP, 72084-1, 90318-3, THYR #### [facility] ([id number]) [address] [place] [address] 93929 MCV (RBC) [Entitic vol] 76 fL Low 80-100 [facility] Comment on above: Performed By: #### C BCA, 83989-7, CMP, 85470-5, 42193-5, THYR #### [facility] ([id number]) [address] [place] [address] 60730 Monocytes (Bld) [#/Vol] 0.7 10*3/uL Normal 0-0.9 [facility] Comment on above: Performed By: #### Margarita BCA, 87868-7, CMP, 83857-5, 04387-0, THYR #### [facility] ([id number]) [address] [place] [address] 54836 Monocytes/100 WBC (Bld) 11.0 % Normal [facility] Comment on above: Performed By: #### Margarita BCA, 61559-2, CMP, 97074-3, 49895-8, THYR #### [facility] ([id number]) [address] [place] [address] 72654 Neutrophils/100 WBC (Bld) 47.1 % Normal [facility] Comment on above: Performed By: #### Margarita BCA, 59429-1, CMP, 75578-3, 11625-2, THYR #### [facility] ([id number]) [address] [place] [address] 75673 Platelet mean volume (Bld) [Entitic vol] 10.0 fL Normal 7-12 [facility] Comment on above: Performed By: #### Margarita BRAXTON, 88177-9, CMP, 44778-9, 04867-9, THYR #### [facility] ([id number]) [address] [place] [address] 94094 Platelets (Bld) [#/Vol] 233 10*3/uL Normal 150-450 [facility] Comment on above: Performed By: #### Margarita BCA, 77692-9, CMP, 97029-7, 52334-6, THYR #### [facility] ([id number]) [address] [place] [address] 67022 RBC COUNT 4.76 X10E12/L Normal 3.80-5.20 [facility] Comment on above: Performed By: #### Margarita BCA, 10321-6, CMP, 54130-8, 55699-3, THYR #### [facility] ([id number]) [address] [place] [address] 95685 WBC (Bld) [#/Vol] 6.6 10*3/uL Normal 4.0-11.0 [facility] Comment on above: Performed By: #### C IRAIS, 59205-4, [facility], 77849-7, 65656-8, THYR #### [facility] ([id number]) [address] [place] [address] 92921 Fibrin D-dimer DDU (PPP) [Ma ss/Vol]on 04-13-2024 D DIMER 177 ng/mL DDU Normal <255 [facility] Comment on above: Result Comment: Results <255 ng/mL DDU: The presence of a VTE can safely be excluded with a negative D-Dimer result and Wells score. A negative result doesn't exclude the possibility of DIC. The test be repeated along with other diagnostic tests if the patient's symptoms persist or worsen. [email or web address] Performed By: #### C IRAIS, 91653-8, [facility], , 56063-6, THYR #### [facility] ([id number]) [address] [place] [address] 36368 HCG ( test) Ql (U)o n 04-13-2024 Beta HCG ( test) Ql (U) Negative Normal NEG [facility] Comment on above: Performed By: #### C IRAIS, 79473-7, [facility], , 75756-6, THYR #### [facility] ([id number]) [address] [place] [address] 94896 MAGNESIUMon 04-13-2024 Magnesium [Mass/Vol] 2.3 mg/dL Normal 1.8-2.6 [facility] Comment on above: Performed By: #### C IRAIS, 41091-8, CMP, 63050-5, 21519-0, THYR #### [facility] ([id number]) [address] [place] [address] 63789 SARS/FLU A+B/RSV by NAAT/[facility] 04-13-2024 SARS/FLU A+B/RSV by NAAT/Molecular FLU A PCR Negative (qualifier value) FLU B PCR Negative (qualifier value) RSV by PCR Negative (qualifier value) SARS CoV 2 Not detected (qualifier value) NOTE The Xpert Xpress SARS-CoV-2/Flu/RSV Plus test is a rapid, multiplexed real-time RT-PCR test intended for the simultaneous qualitative detection and differentiation of SARS-CoV-2, influenza A, influenza B and respiratory syncytial virus (RSV) viral RNA from individuals suspected of respiratory viral infection consistent with COVID-19 by their healthcare provider. This test has not been validated in asymptomatic patients. The Xpert Xpress SARS-CoV-2 test is intended for use by qualified and trained operators who are performing tests using either [employer] DX or [employer] systems and is limited to laboratories that meet the CLIA requirements to perform high and moderate complexity tests. The Xpert Xpress SARS-CoV-2/Flu/RSV Plus is only for use under the Food and Drug Administration's Emergency Use Authorization. Results are for the simultaneous detection and differentiation of SARS-CoV-2, influenza A, influenza B and RSV nucleic acids in clinical specimens. SARS-CoV-2, influenza A, influenza B and RSV RNA identified by this test are generally detectable in upper respiratory samples during the acute phase of infection. Positive results are indicative of the presence of the identified virus, but do not rule out bacterial infection or co-infection with other pathogens not detected by this test. Clinical correlation with patient history and other diagnostic information is necessary to determine patient infection status. The agent detected may not be the definite cause of disease. Negative results do not preclude SARS-CoV-2, influenza A, influenza B and RSV infection and should not be used as the sole basis for treatment or other patient management decisions. Negative results must be combined with clinical observations, patient history and epidemiological information. An Invalid result may occur with specimen-associate d inhibition unable to be resolved with specimen repeat. Fact Sheet for Healthcare Providers: https://www.fda.go v/media/442775/maggie nload Fact Sheet for Patients: https://www.fda.go v/media/634716/maggie nload [facility] Comment on above: Performed By: #### C BCA, 93032-3, CMP, 09528-6, 34315-3, THYR #### [facility] ([id number]) [address] [place] [address] 59546 URN MACROSCOPIC NURon 2024 BILIRUBIN COLEEN Negative Normal NEG [facility] Comment on above: Performed By: #### C BCA, 17362-1, CMP, 35260-3, 08776-3, THYR #### [facility] ([id number]) [address] [place] [address] [place] [address] BLOOD/HGB COLEEN Negative Normal NEG [facility] Comment on above: Performed By: #### C BCA, 14537-6, CMP, 15484-6, 26561-2, THYR #### [facility] ([id number]) [address] [place] [address] [place] [address] GLUCOSE COLEEN Negative Normal NEG [facility] Comment on above: Performed By: #### C BCA, 57859-2, CMP, 29815-9, 76444-0, THYR #### [facility] ([id number]) [address] [place] [address] [place] [address] KETONES COLEEN Negative Normal NEG [facility] Comment on above: Performed By: #### C BCA, 30616-5, CMP, 09949-9, 95087-1, THYR #### [facility] ([id number]) [address] [place] [address] [place] [address] LEUKOCYTE ESTERASE COLEEN Negative Normal NEG [facility] Comment on above: Performed By: #### C BCA, 94450-7, CMP, 04561-7, 29511-3, THYR #### [facility] ([id number]) [address] [place] [address] [place] [address] NITRITE COLEEN Negative Normal NEG [facility] Comment on above: Performed By: #### C BCA, 45262-7, CMP, 64917-4, 01546-7, THYR #### [facility] ([id number]) [address] [place] [address] 13268 PH COLENE 6.5 Normal 5.0-8.5 [facility] Comment on above: Performed By: #### C BCA, 92274-7, CMP, 68339-4, 78450-9, THYR #### [facility] ([id number]) [address] [place] [address] 70703 PROTEIN COLEEN Negative Normal NEG [facility] Comment on above: Performed By: #### C BCA, 27854-2, CMP, 06964-7, 53754-7, THYR #### [facility] ([id number]) [address] [place] [address] 69218 SPECIFIC GRAVITY COLEEN 1.025 Normal 1.003-1 .03 5 [facility] Comment on above: Performed By: #### C BCA, 10703-1, CMP, 00500-1, 67061-7, THYR #### [facility] ([id number]) [address] [place] [address] 19543 UROBILINOGEN COLEEN 0.2 eu/dL Normal <1.1 [facility] Comment on above: Performed By: #### C BCA, 62436-2, CMP, 79527-1, 64929-9, THYR #### [facility] ([id number]) [address] [place] [address] 33483 XR CHEST 1 VWon 04-13-2024 XR CHEST 1 VW XR CHEST 1 VW Single view chest History: Difficulty breathing, shortness of breath Comparison: 12/07/2023 Impression: No acute pulmonary process. No pneumothorax or pleural effusion. Nonenlarged heart. 09 Finalized by Ankur Wilkerson MD on 04/13/2024 2:50 AM Normal [facility] RAPID STREP SCR NURSINGon S. pyogenes Ag EIA Ql (Throat) Negative Normal NEG [facility] Comment on above: Performed By: #### 6 [id number] #### [facility] ([id number]) [address] [facility], [place] [address] SARS/FLU A+B/RSV by NAAT/Mol ecularon 02-17-2024 SARS/FLU A+B/RSV by NAAT/Molecular FLU A PCR Negative (qualifier value) FLU B PCR Negative (qualifier value) RSV by PCR Negative (qualifier value) SARS CoV 2 Not detected (qualifier value) NOTE The Xpert Xpress SARS-CoV-2/Flu/RSV Plus test is a rapid, multiplexed real-time RT-PCR test intended for the simultaneous qualitative detection and differentiation of SARS-CoV-2, influenza A, influenza B and respiratory syncytial virus (RSV) viral RNA from individuals suspected of respiratory viral infection consistent with COVID-19 by their healthcare provider. This test has not been validated in asymptomatic patients. The Xpert Xpress SARS-CoV-2 test is intended for use by qualified and trained operators who are performing tests using either [employer] or [employer] systems and is limited to laboratories that meet the CLIA requirements to perform high and moderate complexity tests. The Xpert Xpress SARS-CoV-2/Flu/RSV Plus is only for use under the Food and Drug Administration's Emergency Use Authorization. Results are for the simultaneous detection and differentiation of SARS-CoV-2, influenza A, influenza B and RSV nucleic acids in clinical specimens. SARS-CoV-2, influenza A, influenza B and RSV RNA identified by this test are generally detectable in upper respiratory samples during the acute phase of infection. Positive results are indicative of the presence of the identified virus, but do not rule out bacterial infection or co-infection with other pathogens not detected by this test. Clinical correlation with patient history and other diagnostic information is necessary to determine patient infection status. The agent detected may not be the definite cause of disease. Negative results do not preclude SARS-CoV-2, influenza A, influenza B and RSV infection and should not be used as the sole basis for treatment or other patient management decisions. Negative results must be combined with clinical observations, patient history and epidemiological information. An Invalid result may occur with specimen-associate d inhibition unable to be resolved with specimen repeat. Fact Sheet for Healthcare Providers: https://www.fda.[employer] v/media/493887/maggie nload Fact Sheet for Patients: https://www.fda.go v/media/192933/maggie nload Normal [facility] Comment on above: Performed By: #### C BCA, 30790-6, CMP, 61225-3, 58022-7, THYR #### [facility] ([id number]) [address] [place] [address] 66603 POCT EKGOrdered By: Heather Simmons on 12-29-2023 [facility] CBC AND AUTO DIFFon 12-07-19 ABSOLUTE BASOPHIL 0.1 X10E9/L Normal 0.0-0.2 [facility] Comment on above: Performed By: #### C BCA, 13677-4, CMP, 15143-5, 47266-0, THYR #### [facility] ([id number]) [address] [place] [address] 08382 ABSOLUTE NEUTROPHIL 5.7 X10E9/L Normal 1.5-6.6 [facility] Comment on above: Performed By: #### C BCA, 61599-1, CMP, 31492-3, 39649-7, THYR #### [facility] ([id number]) [address] [place] [address] 50265 Basophils/100 WBC (Bld) 0.6 % Normal [facility] Comment on above: Performed By: #### C BCA, 88087-2, CMP, 89891-0, 48317-8, THYR #### [facility] ([id number]) [address] [place] [address] 47185 Eosinophils (Bld) [#/Vol] 0.1 10*3/uL Normal 0.0-0.4 [facility] Comment on above: Performed By: #### C BCA, 61338-2, CMP, 04655-3, 96084-1, THYR #### [facility] ([id number]) [address] [place] [address] 13081 Eosinophils/100 WBC (Bld) 1.3 % Normal [facility] Comment on above: Performed By: #### Margarita BRAXTON, 08597-5, CMP, 52436-6, 17971-0, THYR #### [facility] ([id number]) [address] [place] [address] 77960 Erythrocyte distribution width (RBC) [Ratio] 15.3 % High 11.5-15.0 [facility] Comment on above: Performed By: #### Margarita BRAXTON, 24155-1, CMP, 60259-5, 44882-5, THYR #### [facility] ([id number]) [address] [place] [address] 76834 Hematocrit (Bld) [Volume fraction] 35.0 % Normal 35-47 [facility] Comment on above: Performed By: #### Margarita BRAXTON, 12726-6, CMP, 32821-4, 72950-9, THYR #### [facility] ([id number]) [address] [place] [address] 23975 Hemoglobin (Bld) [Mass/Vol] 11.4 g/dL Low 11.7-15. 5 [facility] Comment on above: Performed By: #### Margarita BCA, 35019-5, CMP, , 92106-8, THYR #### [facility] ([id number]) [address] [place] [address] 05350 Lymphocytes (Bld) [#/Vol] 2.1 10*3/uL Normal 1.0-3.5 [facility] Comment on above: Performed By: #### Margarita BRAXTON, 28568-9, CMP, 77336-4, 62667-1, THYR #### [facility] ([id number]) [address] [place] [address] 73620 Lymphocytes/100 WBC (Bld) 24.8 % Normal [facility] Comment on above: Performed By: #### Margarita BRAXTON, 16641-3, CMP, 22060-3, 48749-7, THYR #### [facility] ([id number]) [address] [place] [address] 85466 MCH (RBC) [Entitic mass] 24.3 pg Low 27-34 [facility] Comment on above: Performed By: #### Margarita BRAXTON, 67325-6, CMP, 65712-3, 91121-5, THYR #### [facility] ([id number]) [address] [place] [address] 20083 MCHC (RBC) [Mass/Vol] 32.7 g/dL Normal 32-36 [facility] Comment on above: Performed By: #### Margarita BRAXTON, 22776-8, CMP, 31654-8, 79346-4, THYR #### [facility] ([id number]) [address] [place] [address] 59541 MCV (RBC) [Entitic vol] 74 fL Low 80-100 [facility] Comment on above: Performed By: #### Margarita BRAXTON, 25102-0, CMP, 63730-5, 76191-1, THYR #### [facility] ([id number]) [address] [place] [address] 39883 Monocytes (Bld) [#/Vol] 0.6 10*3/uL Normal 0-0.9 [facility] Comment on above: Performed By: #### Margarita BRAXTON, 30864-5, CMP, 44560-3, 17369-9, THYR #### [facility] ([id number]) [address] [place] [address] 46620 Monocytes/100 WBC (Bld) 6.7 % Normal [facility] Comment on above: Performed By: #### C BCA, 32898-8, CMP, 55371-4, 84000-3, THYR #### [facility] ([id number]) [address] [place] [address] 45361 Neutrophils/100 WBC (Bld) 66.6 % Normal [facility] Comment on above: Performed By: #### Margarita BCA, 83313-9, CMP, 92861-1, 89227-7, THYR #### [facility] ([id number]) [address] [place] [address] 70274 Platelet mean volume (Bld) [Entitic vol] 9.1 fL Normal 7-12 [facility] Comment on above: Performed By: #### Margarita BCA, 73209-0, CMP, 59902-3, 62895-9, THYR #### [facility] ([id number]) [address] [place] [address] 22226 Platelets (Bld) [#/Vol] 276 10*3/uL Normal 150-450 [facility] Comment on above: Performed By: #### Margarita BCA, 05303-7, CMP, 15070-4, 50803-8, THYR #### [facility] ([id number]) [address] [place] [address] 94276 RBC COUNT 4.71 X10E12/L Normal 3.80-5.20 [facility] Comment on above: Performed By: #### Margarita BCA, 49520-3, CMP, 73981-5, 41458-4, THYR #### [facility] ([id number]) [address] [place] [address] 03471 WBC (Bld) [#/Vol] 8.5 10*3/uL Normal 4.0-11.0 [facility] Comment on above: Performed By: #### Margarita BCA, 45083-4, CMP, 55036-9, 05170-7, THYR #### [facility] ([id number]) [address] [place] [address] 21405 COMPREHENSIVE METABOLIC PANE Grupo 12-07-2023 Albumin [Mass/Vol] 4.3 g/dL Normal 3.2-5.3 [facility] Comment on above: Performed By: #### C BCA, 28675-2, CMP, 17202-0, 47376-0, THYR #### [facility] ([id number]) [address] [place] [address] 79456 ALP [Catalytic activity/Vol] 83 U/L Normal 39-130 [facility] Comment on above: Performed By: #### C BCA, 57421-1, CMP, 09849-2, 49695-8, THYR #### [facility] ([id number]) [address] [place] [address] 56186 ALT [Catalytic activity/Vol] 21 U/L Normal 0-31 [facility] Comment on above: Performed By: #### C BCA, 97937-3, CMP, 61819-8, 47574-0, THYR #### [facility] ([id number]) [address] [place] [address] 28679 Anion gap [Moles/Vol] 9 mmol/L Normal 5-15 [facility] Comment on above: Performed By: #### C BCA, 70091-7, CMP, 03397-5, 00508-5, THYR #### [facility] ([id number]) [address] [place] [address] 43381 AST [Catalytic activity/Vol] 16 U/L Normal 0-41 [facility] Comment on above: Performed By: #### C BCA, 29838-8, CMP, 51845-5, 14000-3, THYR #### [facility] ([id number]) [address] [place] [address] 40336 Bilirubin [Mass/Vol] 0.4 mg/dL Normal 0.3-1.2 [facility] Comment on above: Performed By: #### C BCA, 33461-0, CMP, 71824-1, 86999-5, THYR #### [facility] ([id number]) [address] [place] [address] 58033 Calcium [Mass/Vol] 9.2 mg/dL Normal 8.5-10.5 [facility] Comment on above: Performed By: #### C BCA, 74776-1, CMP, 29292-9, 66616-1, THYR #### [facility] ([id number]) [address] [place] [address] 72742 Chloride [Moles/Vol] 105 mmol/L Normal 98-109 [facility] Comment on above: Performed By: #### C BCA, 03689-9, CMP, 01699-7, 12580-6, THYR #### [facility] ([id number]) [address] [place] [address] 09984 CO2 [Moles/Vol] 22 mmol/L Normal 22-32 [facility] Comment on above: Performed By: #### C BCA, 56942-2, CMP, 10311-4, 80156-5, THYR #### [facility] ([id number]) [address] [place] [address] 03081 Creatinine [Mass/Vol] 0.60 mg/dL Normal 0.40-1.00 [facility] Comment on above: Result Comment: METH OD TRACEABLE TO IDMS STANDARD Performed By: #### C BCA, 25278-6, CMP, 92981-9, 39975-3, THYR #### [facility] ([id number]) [address] [place] [address] 41308 eGFR (CKD-EPI) NON-RACE DEPENDENT >90 Normal >59 [facility] Comment on above: Result Comment: Reported eGFR is based on the CKD-EPI 2020 equation that does not use a race coefficient. Performed By: #### C BCA, 99677-5, CMP, 74307-6, 98911-4, THYR #### [facility] ([id number]) [address] [place] [address] 72151 Glucose [Mass/Vol] 91 mg/dL Normal 65-99 [facility] Comment on above: Performed By: #### C BCA, 40420-7, CMP, 16261-7, 28701-6, THYR #### [facility] ([id number]) [address] [place] [address] 37547 Potassium [Moles/Vol] 3.8 mmol/L Normal 3.5-5.0 [facility] Comment on above: Performed By: #### C BCA, 79221-3, CMP, 30556-2, 78211-2, THYR #### [facility] ([id number]) [address] [place] [address] 16584 Protein [Mass/Vol] 7.6 g/dL Normal 6.0-8.0 [facility] Comment on above: Performed By: #### C BCA, 56491-1, CMP, 58466-0, 10097-4, THYR #### [facility] ([id number]) [address] [place] [address] 44604 Sodium [Moles/Vol] 136 mmol/L Normal 134-146 [facility] Comment on above: Performed By: #### C BCA, 74384-8, CMP, 76835-9, 73712-9, THYR #### [facility] ([id number]) [address] [place] [address] 17324 Urea nitrogen [Mass/Vol] 16 mg/dL Normal 5-23 [facility] Comment on above: Performed By: #### C BCA, 32883-4, CMP, 41295-8, 12779-4, THYR #### [facility] ([id number]) [address] [place] [address] 51759 Fibrin D-dimer DDU (PPP) [Ma ss/Vol]on 12-07-2023 D DIMER 209 ng/mL DDU Normal <255 [facility] Comment on above: Result Comment: Results <255 ng/mL DDU: The presence of a VTE can safely be excluded with a negative D-Dimer result and Wells score. A negative result doesn't exclude the possibility of DIC. The test be repeated along with other diagnostic tests if the patient's symptoms persist or worsen. [email or web address] Performed By: #### C IRAIS, 03604-4, KIAN, 61109-8, 55510-5, THYR #### [facility] ([id number]) [address] [place] [address] 10727 HCG ( test) Ql (U)o n 12-07-2023 Beta HCG ( test) Ql (U) Negative Normal NEG [facility] Comment on above: Performed By: #### 2 106-3 #### [facility] ([id number]) [address] [place] [address] 09631 MAGNESIUMon 12-07-2023 Magnesium [Mass/Vol] 2.2 mg/dL Normal 1.8-2.6 [facility] Comment on above: Performed By: #### C IRAIS, 44918-0, CMP, 20339-4, 51199-0, THYR #### [facility] ([id number]) [address] [place] [address] 76029 THYROID PROFILEon 12-07-2023 Free T4 [Mass/Vol] 0.81 ng/dL Normal 0.61-1.60 [facility] Comment on above: Performed By: #### C IRAIS, 82129-8, CMP, 87923-2, 21819-2, THYR #### [facility] ([id number]) [address] [place] [address] [place] [address] TSH 0.84 uIU/mL Normal 0.49-4.67 [facility] Comment on above: Performed By: #### C IRAIS, 41276-2, CMP, 73030-7, 91689-7, THYR #### [facility] ([id number]) [address] [place] [address] 12153 Troponin I.cardiac High sens itivity method [Mass/Vol]on 12-07-2023 TROPONIN I, HIGH SENSITIVITY <2 Normal <16 [facility] Comment on above: Performed By: #### C IRAIS, 43265-5, CMP, 54652-6, 21491-9, THYR #### [facility] ([id number]) [address] [place] [address] 47075 URN MACROSCOPIC NURon 2023 BILIRUBIN COLEEN Negative Normal NEG [facility] Comment on above: Performed By: #### N UM #### [facility] ([id number]) [address] [place] [address] 13644 BLOOD/HGB COLEEN Negative Normal NEG [facility] Comment on above: Performed By: #### N UM #### [facility] ([id number]) [address] [place] [address] [place] [address] GLUCOSE COLEEN Negative Normal NEG [facility] Comment on above: Performed By: #### N UM #### [facility] ([id number]) [address] [place] [address] [place] [address] KETONES COLEEN Negative Normal NEG [facility] Comment on above: Performed By: #### N UM #### [facility] ([id number]) [address] [place] [address] [place] [address] LEUKOCYTE ESTERASE COLEEN Negative Normal NEG [facility] Comment on above: Performed By: #### N UM #### [facility] ([id number]) [address] [place] [address] 17943 NITRITE COLEEN Negative Normal NEG [facility] Comment on above: Performed By: #### N UM #### [facility] ([id number]) [address] [place] [address] 54813 PH COLEEN 5.5 Normal 5.0-8.5 [facility] Comment on above: Performed By: #### N UM #### [facility] ([id number]) [address] [place] [address] 31600 PROTEIN COLEEN Negative Normal NEG [facility] Comment on above: Performed By: #### N UM #### [facility] ([id number]) [address] [place] [address] 88647 SPECIFIC GRAVITY COLEEN >=1.030 Normal 1.003-[address] [place] [address] Comment on above: Performed By: #### N UM #### [facility] ([id number]) [address] [place] [address] 82038 UROBILINOGEN COLEEN 0.2 eu/dL Normal <1.1 [facility] Comment on above: Performed By: #### N UM #### [facility] ([id number]) [address] [place] [address] 64526 XR CHEST 1 VWon 12-07-2023 XR CHEST 1 VW XR CHEST 1 VW HISTORY: A 23-year-old female with the history of the chest pain. EXAM/TECHNIQUE: CHEST: Portable upright AP view COMPARISON: Comparison is made with prior chest examination of 07/06/2019. FINDINGS: Both lungs and costophrenic angles are clear. There is no evidence of pulmonary infiltrate or acute pulmonary pathology. The cardiac silhouette is within normal limits. The trachea is in midline. The mediastinum is otherwise unremarkable. The hemidiaphragms are normal in position. The bony rib cage is intact. IMPRESSION: * No evidence of pulmonary infiltrate, acute pulmonary pathology or significant interval change. 95 Finalized by Floyd Ayers MD on 12/07/2023 1:31 PM Normal [facility] Basic Metabolic Panelon 06- Anion gap [Moles/Vol] 11 mmol/L 9 - 17 mmol/L [facility] Calcium [Mass/Vol] 9.5 mg/dL 8.6 - 10. 4 mg/dL [facility] Chloride [Moles/Vol] 100 mmol/L 98 - 10 7 mmol/L [facility] CO2 [Moles/Vol] 23 mmol/L 20 - 31 mmol/L [facility] Creatinine [Mass/Vol] 0.5 mg/dL 0.5 - 0.9 mg/dL [facility] Est, Gabriella Rutledge Rate - [facility] Comment on above: These results are not intended for use in patients <18 years of age. eGFR results are calculated without a race factor using the 2020 CKD-EPI equation. Careful clinical correlation is recommended, particularly when comparing to results calculated using previous equations. The CKD-EPI equation is less accurate in patients with extremes of muscle mass, extra-renal metabolism of creatine, excessive creatine ingestion, or following therapy that affects renal tubular secretion. Glucose [Mass/Vol] 91 mg/dL 70 - 99 mg/dL [facility] Interpretation and review of laboratory results Abnormal [facility] Potassium [Moles/Vol] 3.7 mmol/L 3.7 - 5.3 mmol/L [facility] Sodium [Moles/Vol] 134 mmol/L Low 135 - 144 mmol/L [facility] Urea nitrogen [Mass/Vol] 14 mg/dL 6 - 20 mg/dL [facility] Urea nitrogen/Creatinine [Mass ratio] 28 mg/mg High 9 - 20 [facility] Basic Metabolic Profon 08-22 Anion gap [Moles/Vol] 11 mmol/L Normal 9-17 [facility] Comment on above: Performed By: #### C JUS BENTON BMP #### [facility] [address] [place] [address] [employer]: Augustine Don MD BUN/CRE Ratio 28 High 9-20 [facility] Comment on above: Performed By: #### C SERENITY TROPI, BMP #### [facility] [address] [place] [address] [employer]: Augustine Don MD Calcium [Mass/Vol] 9.5 mg/dL Normal 8.6-10.4 [facility] Comment on above: Performed By: #### C SERENITY TROPI, BMP #### [facility] [address] [place] [address] [employer]: Augustine Don MD Chloride [Moles/Vol] 100 mmol/L Normal 98-107 [facility] Comment on above: Performed By: #### C SERENITY TROPI, BMP #### [facility] [address] [place] [address] [employer]: Augustine Don MD CO2 [Moles/Vol] 23 mmol/L Normal 20-31 [facility] Comment on above: Performed By: #### C SERENITY TROPI, BMP #### [facility] [address] [place] [address] [employer]: Augustine Don MD Creatinine [Mass/Vol] 0.5 mg/dL Normal 0.5-0.9 [facility] Comment on above: Performed By: #### C SERENITY TROPI, BMP #### [facility] [address] [place] [address] [employer]: Augustine Don MD GFR/1.73 sq M.predicted nanda g non-blacks MDRD (S/P/Bld) [Vol rate/Area] mL/min/{1.73_m2} Normal >60 [facility] Comment on above: Result Comment: These results are not intended for use in patients <18 years of age. eGFR results are calculated without a race factor using the 2020 CKD-EPI equation. Careful clinical correlation is recommended, particularly when comparing to results calculated using previous equations. The CKD-EPI equation is less accurate in patients with extremes of muscle mass, extra-renal metabolism of creatine, excessive creatine ingestion, or following therapy that affects renal tubular secretion. Performed By: #### C JUS BENTON BMP #### [facility] [address] [place], [place] [id number] [employer]: Augustine Don MD Glucose [Mass/Vol] 91 mg/dL Normal 70-99 [facility] Comment on above: Performed By: #### C JUS BENTON BMP #### [facility] [address] [place], [place] [address] [employer]: Augustine Don MD Potassium [Moles/Vol] 3.7 mmol/L Normal 3.7-5.3 [facility] Comment on above: Performed By: #### C JUS BENTON BMP #### [address] [place], [place] [address] [employer]: Augustine Don MD Sodium [Moles/Vol] 134 mmol/L Low 135-144 [facility] Comment on above: Performed By: #### C JUS BENTON BMP #### [address] [place], [place] [address] [employer]: Augustine Don MD Urea nitrogen [Mass/Vol] 14 mg/dL Normal 6-20 [facility] Comment on above: Performed By: #### C JUS BENTON BMP #### [address] [place], [place] [phone] [employer]: Augustine Don MD CBC with Auto Differentialon 08-23-2023 Basophils (Bld) [#/Vol] 0.06 10*3/uL [facility] Basophils/100 WBC (Bld) 1 % 0 - 2 % [facility] Eosinophils (Bld) [#/Vol] 0.14 10*3/uL [facility] Eosinophils/100 WBC (Bld) 2 % 1 - 4 % [facility] Erythrocyte distribution width (RBC) [Ratio] 14.0 % 11.8 - 14.4 % [facility] Hematocrit (Bld) [Volume fraction] 37.6 % 36.3 - 47.1 % [facility] Hemoglobin (Bld) [Mass/Vol] 11.9 g/dL 11.9 - 15.1 g/dL [facility] Immature granulocytes (Bld) [#/Vol] [facility] Immature granulocytes/100 WB C (Bld) 0 % 0 [facility] Interpretation and review of laboratory results Abnormal [facility] Lymphocytes/100 WBC (Bld) 24 % Low 25 - 45 % [facility] Lymphocytes/100 WBC (Bld) 1.82 % [facility] MCH (RBC) [Entitic mass] 24.3 pg Low 25. 2 - 33.5 pg [facility] MCHC (RBC) [Mass/Vol] 31.6 g/dL 28.4 - 34.8 g/dL [facility] MCV (RBC) [Entitic vol] 76.7 fL Low 82.6 - 102.9 fL [facility] Monocytes/100 WBC (Bld) 6 % 2 - 8 % [facility] Monocytes/100 WBC (Bld) 0.46 % [facility] Neutrophils/100 WBC (Bld) 67 % High 34 - 64 % [facility] Nucleated RBC/100 WBC (Bld) [Ratio] 0.0 % 0.0 per 100 WBC [facility] Platelet mean volume (Bld) [Entitic vol] 11.7 fL 8.1 - 13.5 fL [facility] Platelets (Bld) [#/Vol] 276 10*3/uL [facility] RBC (Bld) [#/Vol] 4.90 10*6/uL 3.95 - 5.11 m/uL [facility] Segmented neutrophils/100 WB C (Bld) 5.18 % [facility] WBC other (Bld) [#/Vol] 7.7 [facility] CBC with Diffon 08-23-2023 Abs. Basophil 0.06 k/uL Normal 0.00-0.20 [facility] Comment on above: Performed By: #### C JUS BENTON, BMP #### [address] [place] [address] [employer]: Augustine Don MD Abs.Imm.Granulocyte <0.03 Normal 0.00-0.30 [facility] Comment on above: Performed By: #### C JUS BENTON, BMP #### [address] [place] [address] [employer]: Augustine Don MD Abs.Neutrophil (Seg) 5.18 k/uL Normal 1.80-8.00 [facility] Comment on above: Performed By: #### C JUS BENTON, BMP #### [address] [place] [address] [employer]: Augustine Don MD Basophils/100 WBC (Bld) 1 % Normal 0-2 [facility] Comment on above: Performed By: #### C JUS BENTON, BMP #### [address] [place] [id number] [employer]: Augustine Don MD Eosinophils (Bld) [#/Vol] 0.14 10*3/uL Normal 0.00-0.4 4 [facility] Comment on above: Performed By: #### C JUS BENTON, BMP #### [address] [place], [place] [id number] [employer]: Augustine Don MD Eosinophils/100 WBC (Bld) 2 % Normal 1-4 [facility] Comment on above: Performed By: #### C JUS BENTON, BMP #### [address] [place] [address] [employer]: Augustine Don MD Erythrocyte distribution width (RBC) [Ratio] 14.0 % Normal 11.8-14.4 [facility] Comment on above: Performed By: #### C SERENITY TROPI, BMP #### [facility] [address] [place] [address] [employer]: Augustine Don MD Hematocrit (Bld) [Volume fraction] 37.6 % Normal 36.3-47.1 [facility] Comment on above: Performed By: #### C SERENITY TROPI, BMP #### [facility] [address] [place], [place] [address] [employer]: Augustine Don MD Hemoglobin (Bld) [Mass/Vol] 11.9 g/dL Normal 11.9-15. 1 [facility] [facility] Comment on above: Performed By: #### C SERENITY TROPI, BMP #### [address] [place] [address] [employer]: Augustine Don MD Immature granulocytes/100 WB C (Bld) 0 % Normal 0 [facility] Comment on above: Performed By: #### C YVON BENTONI, BMP #### [address] [place], [place] [address] [employer]: Augustine Don MD Lymphocytes (Bld) [#/Vol] 1.82 10*3/uL Normal 1.20-5.2 0 [facility] Comment on above: Performed By: #### C YVON BENTONI, BMP #### [address] [place], [place] [address] [employer]: Augustine Don MD Lymphocytes/100 WBC (Bld) 24 % Low 25-45 [facility] Comment on above: Performed By: #### C SERENITY TROPI, BMP #### [facility] [address] [place], [facility] [employer]: Augustine Don MD MCH (RBC) [Entitic mass] 24.3 pg Low 25.2-33.5 [facility] Comment on above: Performed By: #### C YVON BENTONI, BMP #### [address] [place], [facility] [employer]: Augustine Don MD MCHC (RBC) [Mass/Vol] 31.6 g/dL Normal 28.4-34.8 [facility] Comment on above: Performed By: #### C YVON BENTONI, BMP #### [address] [place], [place] [address] [employer]: Augustine Don MD MCV (RBC) [Entitic vol] 76.7 fL Low 82.6-102.9 M [facility] Comment on above: Performed By: #### C JUS BENTON, BMP #### [address] [place], [place] [address] [employer]: Augustine Don MD Monocytes (Bld) [#/Vol] 0.46 10*3/uL Normal 0.10-1.40 [facility] Comment on above: Performed By: #### C JUS BENTON, BMP #### [address] [place], [facility] [employer]: Augustine Don MD Monocytes/100 WBC (Bld) 6 % Normal 2-8 [facility] Comment on above: Performed By: #### C JUS BENTON, BMP #### [address] [place], [place] [address] [employer]: Augustine Don MD Neutrophil (Seg) 67 % High 34-64 [facility] Comment on above: Performed By: #### C JUS BENTON, BMP #### [address] [place], [facility] [employer]: Augustine Don MD NRBC Automated 0.0 per 100 WBC Normal 0.0 [facility] Comment on above: Performed By: #### C YVON BENTONI, BMP #### [facility] [address] [place], [place] [address] [employer]: Augustine Don MD Platelet mean volume (Bld) [Entitic vol] 11.7 fL Normal 8.1-13.5 [facility] Comment on above: Performed By: #### C DP, TROPI, BMP #### [facility] [address] [place], [facility] [employer]: Augustine Don MD Platelets (Bld) [#/Vol] 276 10*3/uL Normal 138-453 [facility] Comment on above: Performed By: #### C DP, TROPI, BMP #### [address] [place], [facility] [employer]: Augustine Don MD RBC (Bld) [#/Vol] 4.90 10*6/uL Normal 3.95-5.11 [facility] Comment on above: Performed By: #### C DP, TROPI, BMP #### [address] [place], [facility] [employer]: Augustine Don MD WBC (Bld) [#/Vol] 7.7 10*3/uL Normal 4.5-13.5 [facility] Comment on above: Performed By: #### C DP, TROPI, BMP #### [address] [place], [facility]83 [employer]: Augustine Don MD D-Dimer Teston 08-23-2023 D-Dimer Test <0.27 Normal 0.00-0.59 [facility] Comment on above: Result Comment: When combined with a low clinical probability, a D dimer value of <0.50 ug/mL FEU is considered negative for DVT and PE (negative predictive value of 98%, sensitivity of 97%). If this test is not being used to help rule out DVT and PE, then the following reference range should be utilized: 0.00 - 0.59 ug/mL FEU. The D-Dimer assay is intended for use as an aid in the diagnosis of venous thromboembolism (DVT and PE) and the results should be interpreted in conjunction with the patient's medical history, clinical presentation, and other findings. Elevated levels of D-dimer activity can be seen in any state of coagulation activation and is not recommended in patients with therapeutic dose anticoagulant therapy for >24 hours, fibrinolytic therapy within the previous 7 days, trauma or surgery within the previous 4 weeks, disseminated malignancies, aortic aneurysm, sepsis, severe infections, pneumonia, severe skin infections, liver cirrhosis, advanced age, coronary disease, diabetes, and . A very low percentage of patients with DVT may yield D-dimer results below the cutoff of 0.5 ug/mL FEU. This is known to be more prevalent in patients with distal DVT. Performed By: #### D ABELINO ####[facility] [place] [address] , [place] [address] lab Director: Augustine Don MD D-Dimer, [facility] 08-01 Fibrin D-dimer FEU (PPP) [Mass/Vol] [facility] Comment on above: When combined with a low clinical probability, a D dimer value of <0.50 ug/mL FEU is considered negative for DVT and PE (negative predictive value of 98%, sensitivity of 97%). If this test is not being used to help rule out DVT and PE, then the following reference range should be utilized: 0.00 - 0.59 ug/mL FEU. The D-Dimer assay is intended for use as an aid in the diagnosis of venous thromboembolism (DVT and PE) and the results should be interpreted in conjunction with the patient's medical history, clinical presentation, and other findings. Elevated levels of D-dimer activity can be seen in any state of coagulation activation and is not recommended in patients with therapeutic dose anticoagulant therapy for >24 hours, fibrinolytic therapy within the previous 7 days, trauma or surgery within the previous 4 weeks, disseminated malignancies, aortic aneurysm, sepsis, severe infections, pneumonia, severe skin infections, liver cirrhosis, advanced age, coronary disease, diabetes, and . A very low percentage of patients with DVT may yield D-dimer results below the cutoff of 0.5 ug/mL FEU. This is known to be more prevalent in patients with distal DVT. [facility] 08-23-2023 Magnesium [Mass/Vol] 2.0 mg/dL 1.6 - 2 .6 mg/dL [facility] Magnesium [Mass/Vol] 2.0 mg/dL Normal 1.6-2.6 [facility] Comment on above: Performed By: #### M G #### [facility] [address] [place] [address] [employer]: Augustine Don MD Portable XR Chest AP single viewon 08-23-2023 No acute cardiopulmonary disease. [facility] EXAMINATION: ONE XRAY VIEW OF THE CHEST 08/23/2023 11:26 am COMPARISON: None. HISTORY: ORDERING SYSTEM PROVIDED HISTORY: Chest Pain TECHNOLOGIST PROVIDED HISTORY: Chest Pain FINDINGS: The cardiomediastinal silhouette is unremarkable. The lungs are clear. No infiltrate, pleural fluid or focal process is identified. [facility] Augustine Macias MD - 08/23/2023 EXAMINATION: ONE XRAY VIEW OF THE CHEST 08/23/2023 11:26 am COMPARISON: None. HISTORY: ORDERING SYSTEM PROVIDED HISTORY: Chest Pain TECHNOLOGIST PROVIDED HISTORY: Chest Pain FINDINGS: The cardiomediastinal silhouette is unremarkable. The lungs are clear. No infiltrate, pleural fluid or focal process is identified. IMPRESSION: No acute cardiopulmonary disease. [facility] Radiology Study observation (narrative) [facility] Portable XR Chest AP single viewOrdered By: Augustine Macias on 08-23-2023 [facility] Work Phone: TSH w/reflex to FT4on 2023 Thyroid Stim. Horm. 0.75 uIU/mL Normal 0.30-5.00 [facility] Comment on above: Performed By: #### T SHX ####[facility] [place] [address] Lab Director: Augustine Don MD TSH with Reflexon 08-23-2023 TSH Qn 0.75 m[IU]/L [facility] Troponinon 08-23-2023 Troponin I.cardiac High sensitivity method [Mass/Vol] ng/L 0 - 14 ng/L [facility] Comment on above: High Sensitivity Tro ponin values cannot be compared with other Troponin methodologies. [facility] Troponin, High Sens <6 Normal 0-14 [facility] Comment on above: Result Comment: High Sensitivity Troponin values cannot be compared with other Troponin methodologies. Performed By: #### C DP, TROPI, BMP #### [facility] [address] [place] [address] [employer]: Augustine Don MD XR CHEST PORTABLEon 08-23-19 XR CHEST PORTABLE EXAMINATION: ONE XRAY VIEW OF THE CHEST 08/23/2023 11:26 am COMPARISON: None. HISTORY: ORDERING SYSTEM PROVIDED HISTORY: Chest Pain TECHNOLOGIST PROVIDED HISTORY: Chest Pain FINDINGS: The cardiomediastinal silhouette is unremarkable. The lungs are clear. No infiltrate, pleural fluid or focal process is identified. IMPRESSION: No acute cardiopulmonary disease. Interpreted by: Augustine Macias MD Signed by: Augustine Macias MD 08/23/23 Final result Normal [facility] POCT , urineon Beta HCG ( test) Ql (U) Negative [facility] Internal Last Trimmer Check Completed and Passed Yes [facility] Interpretation and review of laboratory results Normal [facility] Cord Arterial Blood Gason Base deficit (Bld) [Moles/Vol] 7.0 mmol/L High [facility] CO2 (BldCoA) [Partial pressure] 62.7 High [facility] HCO3 (Bld) [Moles/Vol] 22.8 mmol/L [facility] Oxygen (BldCoA) [Partial pressure] 12 [facility] Oxygen saturation in Blood 9.0 % 7 .1 - 39.5 % [facility] pH (BldCoA) 7.167 Low 7.24 - 7.30 [facility] Specimen site Narrative [facility] Cord Venous Blood Gason Base deficit (Bld) [Moles/Vol] 5.0 mmol/L High [facility] CO2 (BldCoV) [Partial pressure] 43.5 [facility] HCO3 (Bld) [Moles/Vol] 21.1 mmol/L [facility] Oxygen (BldCoV) [Partial pressure] 21 Low [facility] Oxygen saturation in Blood 29.0 % Low 3 2.5 - 66.3 % [facility] pH (BldCoV) 7.293 7.25 - 7.37 [facility] Specimen site Narrative [facility] Laboratory - Specimen inform ationon 04-02-2023 Specimen type Nom (Spec) UMBILICALCORD [facility] No Panel Informationon 04-02 Arterial patency Wrist arter y --pre arterial puncture [facility] Interpretation and review of laboratory results Abnormal [facility] Survey instrumentson 024 Oxygen therapy source and amount [CARE] RoomAir [facility] ABO Rh Repeaton 04-01-2023 ABO A [facility] Rh Nom (Bld) Positive [facility] ABO A [facility] Rh Nom (Bld) Positive [facility] Syphilis Total(Unknown Syphi lis Status)on 04-01-2023 T. pallidum IgG+IgM IA Ql (S) [facility] Comment on above: NON REACTIVE No serologic evidence of infection to Treponema pallidum (syphilis). Repeat testing may be considered in patients with suspected acute or primary syphilis in 2 to 4 weeks. T. pallidum IgG+IgM IA Ql (S )on 04-01-2023 [facility] CBC without diffon Erythrocyte distribution width (RBC) [Ratio] 14.4 % 11.5 - 15.0 % [facility] Hematocrit (Bld) [Volume fraction] 30.4 % Low 35 - 47 % [facility] Hemoglobin (Bld) [Mass/Vol] 10.2 g/dL Low 11.7 - 15.5 g/dL [facility] Interpretation and review of laboratory results Abnormal [facility] MCH (RBC) [Entitic mass] 25.0 pg Low 27 - 34 pg [facility] MCHC (RBC) [Mass/Vol] 33.5 g/dL 32 - 3 6 g/dL [facility] MCV (RBC) [Entitic vol] 75 fL Low 80 - 100 fL [facility] Platelet mean volume (Bld) [Entitic vol] 9.7 fL 7 - 12 fL [facility] Platelets (Bld) [#/Vol] 184 10*3/uL [facility] RBC (Bld) [#/Vol] 4.08 10*6/uL [facility] WBC corrected for nucl RBC Auto (Bld) [#/Vol] 6.5 [facility] Drug Screen, Urineon 024 Amphetamines Screen method >1000 ng/mL Ql (U) Negative Negative^N [facility] Comment on above: AMPH/METH screening cut off = 1000 ng/mL Barbiturates Screen Ql (U) Negative N ative^N [facility] Comment on above: Barbiturates screeni ng cut off value = 200 ng/mL Benzodiazepines Ql (U) Negative Negat michele^N [facility] Comment on above: Benzodiazepines scre ening cut off value = 200 ng/mL Cocaine Ql (U) Negative Negative^N [facility] Comment on above: Cocaine screening cu t off value = 300 ng/mL Methadone Screen Ql (U) Negative Nega tive^N [facility] Comment on above: Methadone screening cut off value = 300 ng/mL. Methylenedioxymethamphetamin e Screen Ql (U) Negative Negative^N [facility] Comment on above: Ecstasy screening cu t off value = 500 ng/mL This report is intended for use in clinical monitoring or management of patients. Opiates Screen Ql (U) Negative Negati ve^N [facility] Comment on above: Opiates screening cu t off value = 300 ng/mL NOTE: This test is used for the detection of codeine, hydrocodone (>1000 ng/mL), morphine and hydromorphone (>900 ng/mL) in urine. oxyCODONE Ql (U) Negative Negative^N [facility] Comment on above: Oxycodone screening cut off value = 300 ng/mL NOTE: This test is used for the detection of oxycodone and oxymorphone in urine. Phencyclidine Screen method >25 ng/mL Ql (U) Negative Negative^N egative [facility] Comment on above: Phencyclidine screen ing cut off value = 25 ng/mL Tetrahydrocannabinol Screen method >50 ng/mL Ql (U) Negative Negative^N egative [facility] Comment on above: Cannabinoids/THC scr eening cut off value = 50 ng/mL [facility] Type and screenon 03-31-2023 ABO A [facility] Rh Nom (Bld) Positive [facility] nonstress test - Mater nal Medicineon 03-27-2023 Patient Name: Jolene Burrows Patient : 2000 NST Objective Findings: Variability: Moderate Accelerations: Yes Acoustic Stimulator: Yes Baseline: 125 BPM Uterine Irritability: No Contractions: Not present Comments: FKC,Vaginal Bleeding, and Labor Precautions reviewed with patient. Patient verbalized understanding. NST Interpretation: Nonstress Test Interpretation: Reactive (Solitario Gallagher MD) Overall Impression: Reassuring (Solitario Gallagher MD NST performed by: GIOVANNY Duenas RN 03/27/2023 4:30 PM [facility] nonstress test - Mater nal MedicineOrdered By: Gregoria Major on 03-27-2023 [facility] nonstress test - Mater nal Medicineon 03-25-2023 Patient Name: Jolene Burrows Patient : 2000 NST Objective Findings: Variability: Moderate Decelerations: None Accelerations: Yes Acoustic Stimulator: No Baseline: 125 BPM Uterine Irritability: No Contractions: Not present Comments: FKC, Vaginal Bleeding, and Labor Precautioms reviewe. Patient verbalized understanding. NST Interpretation: Nonstress Test Interpretation: Reactive (Solitario Gallagher MD) Overall Impression: Reassuring (Solitario Gallagher MD) NST performed by: Elisa Salmon & Gregoria Major RN 03/24/2023 9:06 AM [facility] nonstress test - Mater nal MedicineOrdered By: So Cordoba on 03-25-2023 [facility] nonstress test - Mater nal Medicineon 03-19-2023 Patient Name: Jolene Burrows Patient : 2000 NST Objective Findings: Variability: Moderate Decelerations: None Accelerations: Yes Acoustic Stimulator: Yes (x1) Baseline: 130 BPM Uterine Irritability: No Contractions: Irregular Comments: FKC and labor precautions discussed, encouraged hydration NST Interpretation: Nonstress Test Interpretation: Reactive (Lorena Smith MD) Overall Impression: Reassuring (Lorena Smith MD) NST performed by: Hailey Burgos RN 03/19/2023 2:57 PM [facility] nonstress test - Mater nal Medicineon 03-13-2023 Patient Name: Jolene Burrows Patient : 2000 NST Objective Findings: Variability: Moderate Decelerations: None Accelerations: Yes Acoustic Stimulator: No Baseline: 125 BPM Uterine Irritability: No Contractions: Not present Comments: FKC and labor precautions reviewed. Patient verbalized understanding. NST Interpretation: Nonstress Test Interpretation: Reactive (Lorena Smith MD) Overall Impression: Reassuring (Lorena Smith MD) NST performed by: Bozena Briggs RN 03/13/2023 7:57 AM [facility] nonstress test - Mater nal Medicineon 03-05-2023 Patient Name: Jolene Burrows Patient : 2000 NST Objective Findings: Variability: Moderate Decelerations: None Accelerations: Yes Acoustic Stimulator: No Baseline: 135 BPM Contractions: Irregular (Patient rating them 10/10) Comments: FKC reviewed,Labor Precautions reviewed. Patient verbalizes understanding.Kellie ent complaining of contractions rating them 10/10.Patient encouraged to go to L&D Triage if contractions maintain 10/10 and if not relieved with rest,breathing,and drinking plenty of fluids. Patient has seen staff home therapy rn this morning who stated to patient that she was about 1-[address] Gallagher notified of painful contractions.He offered patient to be send up to L&D Triage for r/o contractions. Patient declined at this time but will come back if contractions worsen. NST Interpretation: Nonstress Test Interpretation: Reactive (Solitario Gallagher MD) Overall Impression: Reassuring (Solitario Gallagher MD) NST performed by: Fadumo Al RN 03/05/2023 4:03 PM [facility] nonstress test - Mater nal MedicineOrdered By: So Cordoba on 03-05-2023 [facility] CBC AUTO DIFFon 12-04-2021 BASO # 0.1 103/ul Normal 0.0-0.1 [facility] Comment on above: Performed By: #### C BC #### [facility] [address] [place] [address] Dr. Daisy Mckenzie Basophils/100 WBC (Bld) 0.8 % Normal 0.2-2.0 [facility] Comment on above: Performed By: #### C BC #### [facility] [address] [place] [address] Dr. Daisy Mckenzie EO # 0.2 103/ul Normal 0.0-0.7 [facility] Comment on above: Performed By: #### C BC #### [facility] [address] [place] [address] Dr. Daisy Mckenzie Eosinophils/100 WBC (Bld) 2.3 % Normal 0.9-7.0 [facility] Comment on above: Performed By: #### C BC #### [facility] [address] [place] [address] Dr. Daisy Mckenzie Erythrocyte distribution width (RBC) [Ratio] 13.2 % Normal 11.0-15.0 [facility] Comment on above: Performed By: #### C BC #### [facility] [address] [place] [address] Dr. Daisy Mckenzie Hematocrit (Bld) [Volume fraction] 38.4 % Normal 36.0-48.0 [facility] Comment on above: Performed By: #### C BC #### [facility] [address] [place] [address] Dr. Daisy Mckenzie Hemoglobin (Bld) [Mass/Vol] 12.3 g/dL Normal 12.0-16. 0 [facility] Comment on above: Performed By: #### C BC #### [facility] [address] [place] [address] Dr. Daisy Mckenzie IG # 0.02 10e3/ul Normal 0.00-0.03 [facility] Comment on above: Performed By: #### C BC #### [facility] [address] [place] [address] Dr. Daisy Mceknzie IG % 0.3 % Normal 0.0-0.5 [facility] Comment on above: Performed By: #### C BC #### [facility] [address] [place] [address] Dr. Daisy Mckenzie LYMPH # 1.9 103/ul Normal 1.2-3.8 [facility] Comment on above: Performed By: #### C BC #### [facility] [address] [place] [address] Dr. Daisy Mckenzie Lymphocytes/100 WBC (Bld) 24.6 % Normal 20.5-60.0 [facility] Comment on above: Performed By: #### C BC #### [facility] [address] [place] [address] Dr. Daisy Mckenzie MANUAL DIFF REQ NO Normal [facility] Comment on above: Performed By: #### C BC #### [facility] [address] [place] [address] Dr. Daisy Mckenzie MCH (RBC) [Entitic mass] 26.7 pg Normal 26.7-34.0 [facility] Comment on above: Performed By: #### C BC #### [facility] [address] [place] [address] Dr. Daisy Mckenzie MCHC (RBC) [Mass/Vol] 32.0 g/dL Normal 29.9-35.2 [facility] Comment on above: Performed By: #### C BC #### [facility] [address] [place] [address] Dr. Daisy Mckenzie MCV (RBC) [Entitic vol] 83.3 fL Normal 81.0-99.0 [facility] Comment on above: Performed By: #### C BC #### [facility] [address] [place] [address] Dr. Daisy Mckenzie MONO # 0.6 103/ul Normal 0.3-0.8 [facility] Comment on above: Performed By: #### C BC #### [facility] [address] [place] [address] Dr. Daisy Mckenzie Monocytes/100 WBC (Bld) 7.8 % Normal 1.7-12.0 [facility] Comment on above: Performed By: #### C BC #### [facility] [address] [place] [address] Dr. Daisy Mckenzie NEUT # 5.0 103/ul Normal 1.4-6.5 [facility] Comment on above: Performed By: #### C BC #### [facility] [address] [place] [address] Dr. Daisy Mckenzie Neutrophils/100 WBC (Bld) 64.2 % Normal 43.0-75.0 [facility] Comment on above: Performed By: #### C BC #### [facility] [address] [place] [address] Dr. Daisy Mckenzie Platelet mean volume (Bld) [Entitic vol] 11.6 fL Normal 9.5-13.5 [facility] Comment on above: Performed By: #### C BC #### [facility] [address] [place] [address] Dr. Daisy Mckenzie PLT 239 103/ul Normal 150-450 [facility] Comment on above: Performed By: #### C BC #### [facility] [address] [place] [address] Dr. Daisy Mckenzie RBC 4.61 106/ul Normal 4.20-5.40 [facility] Comment on above: Performed By: #### C BC #### [facility] [address] [place] [address] Dr. Daisy Mckenzie WBC 7.7 103/ul Normal 4.0-11.0 [facility] Comment on above: Performed By: #### C BC #### [facility] [address] [place] [address] Dr. Daisy Mckenzie FOLATEon 12-04-2021 FOLATE 15.50 ng/mL Normal 8.60-58.90 [facility] Comment on above: Performed By: #### F OL #### [facility] [address] [place] [address] Dr. Daisy Mckenzie MAGNESIUMon 12-04-2021 Magnesium [Mass/Vol] 2.1 mg/dL Normal 1.8-2.4 [facility] Comment on above: Performed By: #### C MP, TSH, MG #### [facility] [address] [place] [address] Dr. Daisy Mckenzie PROF 14(COMP METB)on 022 Albumin [Mass/Vol] 3.6 g/dL Normal 3.4-5.0 [facility] Comment on above: Performed By: #### C MP, TSH, MG #### [facility] [address] [place] [address] Dr. Daisy Mckenzie Albumin/Globulin [Mass ratio] 0.9 {ratio} Normal [facility] Comment on above: Performed By: #### C MP, TSH, MG #### [facility] [address] [place] [address] Dr. Daisy Mckenzie ALP [Catalytic activity/Vol] 103 U/L Normal 46-116 [facility] Comment on above: Performed By: #### C MP, TSH, MG #### [facility] [address] [place] [address] Dr. Daisy Mckenzie ALT [Catalytic activity/Vol] 32 U/L Normal 14-59 [facility] Comment on above: Performed By: #### C MP, TSH, MG #### [facility] [address] [place] [address] Dr. Daisy Mckenzie Anion gap [Moles/Vol] 9.5 mmol/L Normal [facility] Comment on above: Performed By: #### C MP, TSH, MG #### [facility] [address] [place] [address] Dr. Daisy Mckenzie AST [Catalytic activity/Vol] 16 U/L Normal 15-37 [facility] Comment on above: Performed By: #### C MP, TSH, MG #### [facility] [address] [address] [address] Daisy Mckenzie Bilirubin [Mass/Vol] 0.3 mg/dL Normal 0.2-1.0 [facility] Comment on above: Performed By: #### C MP, TSH, MG #### [facility] [address] [place] [address] Dr. Daisy Mckenzie Calcium [Mass/Vol] 9.1 mg/dL Normal 8.5-10.1 [facility] Comment on above: Performed By: #### C MP, TSH, MG #### [facility] [address] [place] [address] Dr. Daisy Mckenzie Chloride [Moles/Vol] 102 mmol/L Normal 98-107 [facility] Comment on above: Performed By: #### C MP, TSH, MG #### [facility] [address] [place] [address] Dr. Daisy Mckenzie CO2 [Moles/Vol] 27.4 mmol/L Normal 21.0-32.0 [facility] Comment on above: Performed By: #### C MP, TSH, MG #### [facility] [address] [place] [address] Dr. Dasiy Mckenzie Creatinine [Mass/Vol] 0.69 mg/dL Normal 0.55-1.02 [facility] Comment on above: Performed By: #### C MP, TSH, MG #### [facility] [address] [place] [address] Dr. Daisy Mckenzie EGFR-AF MARSHALLESE >60 Normal >=60 [facility] Comment on above: Performed By: #### C MP, TSH, MG #### [facility] [address] [place] [address] Dr. Daisy Mckenzie EGFR-NON AF MARSHALLESE >60 Normal >=60 [facility] Comment on above: Performed By: #### C MP, TSH, MG #### [facility] [address] [place] [address] Dr. Daisy Mckenzie Globulin (S) [Mass/Vol] 3.8 g/dL Normal T [facility] Comment on above: Performed By: #### C MP, TSH, MG #### [facility] [address] [place] [address] Dr. Daisy Mckenzie Glucose [Mass/Vol] 96 mg/dL Normal 74-106 [facility] Comment on above: Performed By: #### C MP, TSH, MG #### [facility] [address] [place] [address] Dr. Daisy Mckenzie Potassium [Moles/Vol] 3.9 mmol/L Normal 3.5-5.1 [facility] Comment on above: Performed By: #### C MP, TSH, MG #### [facility] [address] [place] [address] Dr. Daisy Mckenzie Protein [Mass/Vol] 7.4 g/dL Normal 6.4-8.2 [facility] Comment on above: Performed By: #### C MP, TSH, MG #### [facility] [address] [place] [address] Dr. Daisy Mckenzie Sodium [Moles/Vol] 135 mmol/L Critically low 136-145 [facility] Comment on above: Performed By: #### C MP, TSH, MG #### [facility] [address] [place] [address] Dr. Daisy Mckenzie Urea nitrogen [Mass/Vol] 12.0 mg/dL Normal 6.4-19.3 [facility] Comment on above: Performed By: #### C MP, TSH, MG #### [facility] [address] [place] [address] Dr. Daisy Mckenzie Urea nitrogen/Creatinine [Mass ratio] 17.4 mg/mg Normal [facility] Comment on above: Performed By: #### C MP, TSH, MG #### [facility] [address] [place] [address] Dr. Daisy Mckenzie TSHon 12-04-2021 TSH 0.763 uIU/mL Normal 0.516-4.13 0 [facility] Comment on above: Performed By: #### C MP, TSH, MG #### [facility] [address] [place] [address] Dr. Daisy Mckenzie Basic Metabolic Panelon 08-2 Anion gap [Moles/Vol] 13 mmol/L 9 - 17 mmol/L [facility] Calcium [Mass/Vol] 9.5 mg/dL 8.6 - 10. 4 mg/dL [facility] Chloride [Moles/Vol] 100 mmol/L 98 - 10 7 mmol/L [facility] CO2 [Moles/Vol] 25 mmol/L 20 - 31 mmol/L [facility] Creatinine [Mass/Vol] 0.55 mg/dL 0.5 - 0.9 mg/dL [facility] GFR Non- Pediatric GFR requires additional information. Refer to [facility]DEP website for calculator. 60 - PINF mL/min [facility] Glucose [Mass/Vol] 109 mg/dL High 70 - 99 mg/dL [facility] Interpretation and review of laboratory results Abnormal [facility] Potassium [Moles/Vol] 3.5 mmol/L Low 3.7 - 5.3 mmol/L [facility] Sodium [Moles/Vol] 138 mmol/L 135 - 144 mmol/L [facility] Urea nitrogen (BldV) [Mass/Vol] 12 mg/dL 6 - 20 mg/dL [facility] Urea nitrogen/Creatinine (Bld) [Mass ratio] 22 High 9 - 20 [facility] CBCon 10-27-2021 Hematocrit (Bld) [Volume fraction] 39.1 % 36.3 - 47.1 % [facility] Hemoglobin (Bld) [Mass/Vol] 12.6 g/dL 11.9 - 15.1 g/dL [facility] MCH (RBC) [Entitic mass] 26.9 pg 25 - 35 pg [facility] MCHC (RBC) [Mass/Vol] 32.2 g/dL 28.4 - 34.8 g/dL [facility] MCV (RBC) [Entitic vol] 83.4 fL 78 - 102 fL [facility] NRBC Automated 0.0 0.0 per 100 WBC [facility] Platelet distribution width (Bld) [Ratio] 12.8 % 11.8 - 14.4 % [facility] Platelet mean volume (Bld) [Entitic vol] 11.5 fL 8.1 - 13.5 fL [facility] Platelets (Bld) [#/Vol] 250 10*3/uL [facility] RBC (Bld) [#/Vol] 4.69 10*6/uL 3.95 - 5.11 m/uL [facility] WBC (Bld) [#/Vol] 11.3 10*3/uL [facility] CT Head WO Contraston 2021 No acute intracranial abnormality. [facility] EXAMINATION: CT OF THE HEAD WITHOUT CONTRAST 10/27/2021 2:57 am TECHNIQUE: CT of the head was performed without the administration of intravenous contrast. Automated exposure control, iterative reconstruction, and/or weight based adjustment of the mA/kV was utilized to reduce the radiation dose to as low as reasonably achievable. COMPARISON: None. HISTORY: ORDERING SYSTEM PROVIDED HISTORY: headache and vomiting TECHNOLOGIST PROVIDED HISTORY: headache and vomiting Decision Support Exception - unselect if not a suspected or confirmed emergency medical condition->Emergen cy Medical Condition (MA) Is the patient ?->No FINDINGS: BRAIN/VENTRICLES: There is no acute intracranial hemorrhage, mass effect or midline shift. No abnormal extra-axial fluid collection. The reyes-white differentiation is maintained without evidence of an acute infarct. There is no evidence of hydrocephalus. No basilar cistern or sulcal effacement. No wedge-shaped area of acute ischemia. No cortical atrophy. ORBITS: The visualized portion of the orbits demonstrate no acute abnormality. SINUSES: Minimal chronic paranasal sinus disease within the ethmoid air cells. Mastoid air cells are well aerated. SOFT TISSUES/SKULL: No acute abnormality of the visualized skull or soft tissues. [facility] Augustine Arevalo MD - 10/27/2021 EXAMINATION: CT OF THE HEAD WITHOUT CONTRAST 10/27/2021 2:57 am TECHNIQUE: CT of the head was performed without the administration of intravenous contrast. Automated exposure control, iterative reconstruction, and/or weight based adjustment of the mA/kV was utilized to reduce the radiation dose to as low as reasonably achievable. COMPARISON: None. HISTORY: ORDERING SYSTEM PROVIDED HISTORY: headache and vomiting TECHNOLOGIST PROVIDED HISTORY: headache and vomiting Decision Support Exception - unselect if not a suspected or confirmed emergency medical condition->Emergen cy Medical Condition (MA) Is the patient ?->No FINDINGS: BRAIN/VENTRICLES: There is no acute intracranial hemorrhage, mass effect or midline shift. No abnormal extra-axial fluid collection. The reyes-white differentiation is maintained without evidence of an acute infarct. There is no evidence of hydrocephalus. No basilar cistern or sulcal effacement. No wedge-shaped area of acute ischemia. No cortical atrophy. ORBITS: The visualized portion of the orbits demonstrate no acute abnormality. SINUSES: Minimal chronic paranasal sinus disease within the ethmoid air cells. Mastoid air cells are well aerated. SOFT TISSUES/SKULL: No acute abnormality of the visualized skull or soft tissues. IMPRESSION: No acute intracranial abnormality. [employer] Work Phone: Radiology Study observation (narrative) [address] Systems Phone: CT Head WO ContrastOrdered B y: Augustine Arevalo on 10-27-2021 [employer] Work Phone: HCG Qualitative, Serumon hCG Qual Negative NEGATIVE [employer] Comment on above: Specimens with hCG l evels near the threshold of the test (25 mIU/mL) may give a negative or indeterminate result. In such cases, another test should be performed with a new specimen in 48-72 hours. If early is suspected clinically in this setting, correlation with quantitative serum b-hCG level is suggested. [facility] has confirmed the use of plasma for this test. This has not been cleared or approved by the U.S. Food and Drug Administration. The FDA has determined that such clearance is not necessary. [facility] - Chemistry and C hemistry - challengeon 10-27-2021 GFR/1.73 sq M.predicted MDRD (S/P/Bld) [Vol rate/Area] [facility] Comment on above: Average GFR for <20 years old not available. Chronic Kidney Disease: <60 mL/min/1.73sq m Kidney failure: <15 mL/min/1.73sq m eGFR calculated using average adult body mass. Additional eGFR calculator available at: http://www.PlanHQ.Grabbit/multiple_crcl_2012.htm Stage 1: Some kidney damage normal GFR Stage 2: Mild kidney damage GFR 60-89 Stage 3: Moderate kidney damage GFR 30-59 Stage 4: Severe kidney damage GFR 15-29 Stage 5: Severe kidney damage GFR <15 ESRD - chronic treatment by dialysis or transplant Microscopic Urinalysison Epithelial Cells UA 0 TO 2 [facility] S AI [employer] [facility] RBC, UA None [facility] WBC, UA None [facility] Urinalysis with Reflex to Cu ltureon 10-27-2021 Bilirubin Urine Negative NEGATIVE [facility] [employer] Color, UA Yellow Yellow [facility] Glucose, Ur Negative NEGATIVE [facility] Interpretation and review of laboratory results Abnormal [facility] Ketones Ql (U) Negative NEGATIVE [facility] Leukocyte esterase Test stri p Ql (U) Negative NEGATIVE [facility] Nitrite, Urine Negative NEGATIVE [facility] pH, UA 6.0 5 - 9 [facility] Protein, UA Negative NEGATIVE [facility] Specific [place], UA High 1.01 - 1.02 [facility] Turbidity UA Clear Clear [facility] Urine Hgb Negative NEGATIVE [facility] Urobilinogen, Urine Normal Normal [facility] COVID Quick Testingon 2021 Result Negative [employer] Other Quick Fluon 05-19-2021 FLUAV Ab CF (S) [Titer] Negative N Waddle Other FLUBV Ab CF (S) [Titer] Negative Wandrian Other Surgical Pathologyon Surgical Pathology (NOTE) -- Diagnosis -- BILATERAL TONSILS, TONSILLECTOMY: - ACUTE AND CHRONIC TONSILLITIS WITH FOLLICULAR LYMPHOID HYPERPLASIA AND ACTINOMYCES COLONIZATION. Kishor Tariq M.D. Electronically Signed Out /08/29/2019 Clinical Information Pre-op Diagnosis: TANDA HYPERTROPHY, CHRONIC TONSILLITIS Operative Findings: BILATERAL TONSILS (GROSS ONLY) Source of Specimen 1: BILATERAL TONSILS - GROSS ONLY Gross Description JOLENE BURROWS, BILATERAL TONSILS GROSS ONLY Two tonsils, 2.6 x 1.8 x 1.4 cm and 2.6 x 2.3 x 1.5 cm (4 grams each). Sectioning reveals clefted kothari cut surfaces with no masses. Or Nurse Manager section of each 2cs. . tm Microscopic Description Microscopic examination performed. SURGICAL PATHOLOGY CONSULTATION Patient Name: JOLENE BURROWS [facility] Rec: [id number] Path Number: [id number] [facility] ANATOMIC PATHOLOGY [address] [place] [id number] [facility] Comment on above: Performed By: #### P PPVS #### [employer] [address] [place] [address] [id number] [employer] Sales: Lazaro Garcia MD Vital Signs Date Time Vital Sign Value Performing Clinician Facility 07-19-2024 13:10-0400 Body height [address] 07-19-2024 13:10-0400 Body mass index (BMI) [Ratio] 43.75 kg/m2 [address] 07-19-2024 13:10-0400 Body weight 111.[address] 07-19-2024 13:10-0400 Diastolic blood pressure 72 mm[Hg] [address] 07-19-2024 13:10-0400 Systolic blood pressure 108 mm[Hg] [address] 07-15-2024 13:51-0400 Body height 160 cm Liz Mckeon MD Work Phone: [facility] 07-15-2024 13:51-0400 Body mass index (BMI) [Ratio] 44.12 kg/m2 Liz Mckeon MD Work Phone: [facility] 07-15-2024 13:51-0400 Body weight 112.95 kg Liz Mckeon MD Work Phone: [facility] 07-15-2024 13:51-0400 Diastolic blood pressure 72 mm[Hg] Liz Mckeon MD Work Phone: [facility] [employer] [facility] 07-15-2024 13:51-0400 Heart rate 106 /min Liz Mckeon MD Work Phone: [facility] [employer] [facility] 07-15-2024 13:51-0400 SaO2% (BldA) [Mass fraction] 99 % Liz Mckeon MD Work Phone: [facility] [employer] [facility] 07-15-2024 13:51-0400 Systolic blood pressure 98 mm[Hg] Liz Mckeon MD Work Phone: [facility] [employer] [facility] 07-02-2024 15:35-0400 Body temperature 97.39 [degF] Elisa Arce MD Work Phone: [facility] [employer] 07-02-2024 15:35-0400 Diastolic blood pressure 80 mm[Hg] Elisa Arce MD Work Phone: [facility] [employer] 07-02-2024 15:35-0400 Heart rate 88 /min Elisa Arce MD Work Phone: [facility] [employer] 07-02-2024 15:35-0400 Respiratory rate 20 /min Elisa Arce MD Work Phone: [facility] [employer] 07-02-2024 15:35-0400 SaO2% (BldA) [Mass fraction] 99 % Elisa Arce MD Work Phone: [facility] [employer] 07-02-2024 15:35-0400 Systolic blood pressure 122 mm[Hg] Elisa Arce MD Work Phone: [facility] [employer] 06-29-2024 13:02-0400 Body height [address] [employer] [facility] 06-29-2024 13:02-0400 Body mass index (BMI) [Ratio] 43.55 kg/m2 [address] [employer] [facility] 06-29-2024 13:02-0400 Body weight 111.[address] [employer] [facility] 06-29-2024 13:02-0400 Diastolic blood pressure 78 mm[Hg] [facility] 06-29-2024 13:02-0400 Systolic blood pressure 122 mm[Hg] [facility] 06-28-2024 13:47-0400 Body height 160 [facility] 06-28-2024 13:47-0400 Body mass index (BMI) [Ratio] 40.74 kg/m2 [facility] 06-28-2024 13:47-0400 Body temperature 98.29 [degF] [facility] [employer] 06-28-2024 13:47-0400 Body weight 104.33 kg [facility] 06-28-2024 13:47-0400 Heart rate 100 /min [facility] 06-28-2024 13:47-0400 Respiratory rate 20 /min [facility] 06-28-2024 13:47-0400 SaO2% (BldA) [Mass fraction] 100 % [facility] 04-11-2024 14:47-0500 Body height 162.56 cm PHYSICIAN NO [facility] 04-11-2024 14:47-0500 Body mass index (BMI) [Ratio] 42.4 kg/m2 PHYSICIAN NO [facility] 04-11-2024 14:47-0500 Body temperature 98.9 [degF] PHYSICIAN NO [facility] 04-11-2024 14:47-0500 Body weight 112.2 kg PHYSICIAN NO [facility] 04-11-2024 14:47-0500 Diastolic blood pressure 74 mm[Hg] PHYSICIAN NO [facility] 04-11-2024 14:47-0500 Heart rate 100 /min PHYSICIAN NO [facility] 04-11-2024 14:47-0500 Respiratory rate 19 /min PHYSICIAN NO [facility] 04-11-2024 14:47-0500 SaO2% (BldA) [Mass fraction] 97 % PHYSICIAN NO [facility] 04-11-2024 14:47-0500 Systolic blood pressure 102 mm[Hg] PHYSICIAN NO [facility] 12-29-2023 13:04-0400 Heart rate 122 /min Beatriz Kebede MD Work Phone: [facility] 12-29-2023 13:04-0400 Respiratory rate 96 /min Beatriz Kebede MD Work Phone: [facility] 12-29-2023 12:58-0400 Body height 162.6 cm Beatriz Kebede MD Work Phone: [facility] 12-29-2023 12:58-0400 Body mass index (BMI) [Ratio] 42.2 kg/m2 Beatriz Kebede MD Work Phone: [facility] 12-29-2023 12:58-0400 Body weight 111.58 kg Beatriz Kebede MD Work Phone: [facility] 12-29-2023 12:58-0400 Diastolic blood pressure 80 mm[Hg] Beatriz Kebede MD Work Phone: [facility] 12-29-2023 12:58-0400 SaO2% (BldA) [Mass fraction] 96 % Beatriz Kebede MD Work Phone: [facility] 12-29-2023 12:58-0400 Systolic blood pressure 132 mm[Hg] Beatriz Kebede MD Work Phone: [facility] 08-28-2023 13:02-0400 Body height 162.6 cm Beatriz Kebede MD Work Phone: [facility] 08-28-2023 13:02-0400 Body mass index (BMI) [Ratio] 39.14 kg/m2 Beatriz Kebede MD Work Phone: [facility] 08-28-2023 13:02-0400 Body weight 103.42 kg Beatriz Kebede MD Work Phone: [facility] 08-28-2023 13:02-0400 Diastolic blood pressure 68 mm[Hg] Beatriz Kebede MD Work Phone: [facility] 08-28-2023 13:02-0400 Heart rate 108 /min Beatriz Kebede MD Work Phone: [facility] [employer] [facility] 08-28-2023 13:02-0400 Systolic blood pressure 116 mm[Hg] Beatriz Kebede MD Work Phone: [facility] 08-23-2023 13:12-0400 SaO2% (BldA) [Mass fraction] 100 % [facility] [employer] 08-23-2023 12:00-0400 Heart rate 86 /min [facility] 08-23-2023 12:00-0400 Respiratory rate 16 /min [facility] [employer] 08-23-2023 11:58-0400 Diastolic blood pressure 64 mm[Hg] [facility] 08-23-2023 11:58-0400 Systolic blood pressure 100 mm[Hg] [facility] [employer] 08-23-2023 10:56-0400 Body height 162.6 cm [facility] [employer] 08-23-2023 10:56-0400 Body mass index (BMI) [Ratio] 39.48 kg/m2 [facility] [employer] 08-23-2023 10:56-0400 Body temperature 98.49 [degF] [facility] [employer] 08-23-2023 10:56-0400 Body weight 104.33 kg [facility] [employer] 06-12-2023 13:04-0400 Body height 162.[address] 06-12-2023 13:04-0400 Body mass index (BMI) [Ratio] 39.19 kg/m2 [address] 06-12-2023 13:04-0400 Body weight 103.[address] 06-12-2023 13:04-0400 Diastolic blood pressure 62 mm[Hg] [address] 06-12-2023 13:04-0400 Systolic blood pressure 112 mm[Hg] [address] 05-08-2023 13:04-0500 Body height 162.[address] 05-08-2023 13:04-0500 Body mass index (BMI) [Ratio] 39.13 kg/m2 [address] 05-08-2023 13:04-0500 Body weight 103.[address] 05-08-2023 13:04-0500 Diastolic blood pressure 70 mm[Hg] [address] 05-08-2023 13:04-0500 Systolic blood pressure 128 mm[Hg] [address] 04-03-2023 14:22-0500 Body temperature 98.8 [degF] Marilynn Ashby Bojanic BAR MANAGER-CNM Work Phone: [facility] 04-03-2023 14:22-0500 Diastolic blood pressure 54 mm[Hg] Marilynn Ashby Bojanic BAR MANAGER-CNM Work Phone: [facility] 04-03-2023 14:22-0500 Heart rate 86 /min Marilynn Ashby Bojanic BAR MANAGER-CNM Work Phone: [facility] 04-03-2023 14:22-0500 Respiratory rate 18 /min Marilynn Ashby Bojanic BAR MANAGER-CNM Work Phone: [facility] 04-03-2023 14:22-0500 Systolic blood pressure 102 mm[Hg] Marilynn Ashby Bojanic BAR MANAGER-CNM Work Phone: [facility] 04-01-2023 23:00-0500 SaO2% (BldA) [Mass fraction] 100 % Marilynn Ashby Bojanic BAR MANAGER-CNM Work Phone: [facility] 03-31-2023 23:00-0500 Body height 162.6 cm Marilynn Ashby Bojanic BAR MANAGER-CNM Work Phone: [facility] 03-31-2023 23:00-0500 Body mass index (BMI) [Ratio] 40.77 kg/m2 Marilynn Ashby Bojanic BAR MANAGER-CNM Work Phone: [facility] 03-31-2023 23:00-0500 Body weight 107.8 kg Marilynn Ashby Bojanic BAR MANAGER-CNM Work Phone: [facility] 03-27-2023 13:56-0500 Diastolic blood pressure 68 mm[Hg] [address] 03-27-2023 13:56-0500 Heart rate 112 /min [address] 03-27-2023 13:56-0500 Systolic blood pressure 115 mm[Hg] [address] 03-25-2023 15:24-0500 Body mass index (BMI) [Ratio] 40.78 kg/m2 [address] 03-25-2023 15:24-0500 Body weight 107.[address] 03-25-2023 15:24-0500 Diastolic blood pressure 60 mm[Hg] [address] 03-25-2023 15:24-0500 Systolic blood pressure 92 mm[Hg] [address] 03-24-2023 14:35-0500 Diastolic blood pressure 66 mm[Hg] [address] 03-24-2023 14:35-0500 Heart rate 100 /min [address] 03-24-2023 14:35-0500 Systolic blood pressure 106 mm[Hg] [address] 03-19-2023 13:36-0500 Diastolic blood pressure 65 mm[Hg] [address] 03-19-2023 13:36-0500 Heart rate 99 /min [address] 03-19-2023 13:36-0500 Systolic blood pressure 107 mm[Hg] [address] 03-18-2023 13:20-0500 Body mass index (BMI) [Ratio] 41.28 kg/m2 [address] 03-18-2023 13:20-0500 Body weight 109.[address] 03-18-2023 13:20-0500 Diastolic blood pressure 76 mm[Hg] [address] 03-18-2023 13:20-0500 Systolic blood pressure 117 mm[Hg] Chs 1 [facility] 03-12-2023 14:16-0500 Body mass index (BMI) [Ratio] 40.63 kg/m2 [facility] 03-12-2023 14:16-0500 Body weight 107.37 kg [facility] 03-12-2023 14:16-0500 Diastolic blood pressure 64 mm[Hg] [facility] 03-12-2023 14:16-0500 Systolic blood pressure 108 mm[Hg] [facility] 03-12-2023 12:57-0500 Diastolic blood pressure 70 mm[Hg] [address] 03-12-2023 12:57-0500 Heart rate 119 /min [address] 03-12-2023 12:57-0500 Systolic blood pressure 113 mm[Hg] [address] 03-10-2023 16:02-0500 Body height 162.6 cm Richie Javad DO Work Phone: [facility] 03-10-2023 16:02-0500 Body mass index (BMI) [Ratio] 40.34 kg/m2 Richie Javad DO Work Phone: [facility] 03-10-2023 16:02-0500 Body weight 106.59 kg Richie Javad DO Work Phone: [facility] 03-10-2023 16:02-0500 Diastolic blood pressure 84 mm[Hg] Richie Javad DO Work Phone: [facility] 03-10-2023 16:02-0500 Heart rate 113 /min Richie Javad DO Work Phone: [facility] 03-10-2023 16:02-0500 SaO2% (BldA) [Mass fraction] 98 % Richie Javad DO Work Phone: [facility] 03-10-2023 16:02-0500 Systolic blood pressure 136 mm[Hg] Richie Javad DO Work Phone: [facility] 03-05-2023 13:39-0500 Diastolic blood pressure 70 mm[Hg] [address] 03-05-2023 13:39-0500 Heart rate 101 /min [address] 03-05-2023 13:39-0500 Systolic blood pressure 113 mm[Hg] [address] 03-05-2023 10:13-0500 Body mass index (BMI) [Ratio] 40.39 kg/m2 [address] 03-05-2023 10:13-0500 Body weight 106.[address] 03-05-2023 10:13-0500 Diastolic blood pressure 64 mm[Hg] [address] 03-05-2023 10:13-0500 Systolic blood pressure 108 mm[Hg] [address] 09-08-2022 11:40-0400 Body temperature 98.8 [degF] Jolene Love Other [facility] Other 09-08-2022 11:40-0400 Body weight 106.05 kg Jolene Love Other [facility] Other 09-08-2022 11:40-0400 Respiratory rate 18 /min Jolene Love Other [facility] Other 09-08-2022 11:40-0400 SaO2% (BldA) [Mass fraction] 98 % Jolene Love Other [facility] Other 12-03-2021 15:30-0400 Body height 162.56 cm Shelbie Finch Other [facility] Other 12-03-2021 15:30-0400 Body mass index (BMI) [Ratio] 40.13 kg/m2 Shelbie Finch Other [facility] Other 12-03-2021 15:30-0400 Body temperature 97.9 [degF] Shelbie Finch Other [facility] Other 12-03-2021 15:30-0400 Body weight 106.05 kg Shelbie Finch Other [facility] Other 12-03-2021 15:30-0400 Diastolic blood pressure 71 mm[Hg] Shelbie Finch Other [facility] Other 12-03-2021 15:30-0400 Respiratory rate 18 /min Shelbie Finch Other [facility] Other 12-03-2021 15:30-0400 SaO2% (BldA) [Mass fraction] 100 % Shelbie Finch Other [facility] Other 12-03-2021 15:30-0400 Systolic blood pressure 111 mm[Hg] Shelbie Finch Other [facility] Other 10-29-2021 12:30-0400 Body height 162.56 cm Shelbie Finch Other [facility] Other 10-29-2021 12:30-0400 Body mass index (BMI) [Ratio] 39.48 kg/m2 Shelbie Finch Other [facility] Other 10-29-2021 12:30-0400 Body temperature 98.7 [degF] Shelbie Bhardwajault Other [facility] Other 10-29-2021 12:30-0400 Body weight 104.33 kg Shelbie Bhardwajault Other [facility] Other 10-29-2021 12:30-0400 Diastolic blood pressure 45 mm[Hg] Shelbie Finch Other [facility] Other 10-29-2021 12:30-0400 Respiratory rate 18 /min Shelbie Finch Other [facility] Other 10-29-2021 12:30-0400 SaO2% (BldA) [Mass fraction] 97 % Shelbie Finch Other [facility] Other 10-29-2021 12:30-0400 Systolic blood pressure 102 mm[Hg] Shelbie Finch Other [facility] Other 10-27-2021 02:26-0400 Heart rate 96 /min Fern Busch DO Work Phone: [employer] 10-27-2021 02:16-0400 Diastolic blood pressure 79 mm[Hg] Fern Busch DO Work Phone: [employer] 10-27-2021 02:16-0400 Respiratory rate 26 /min Fern Narayan DO Work Phone: [employer] 10-27-2021 02:16-0400 Systolic blood pressure 112 mm[Hg] Fern Busch DO Work Phone: [employer] 10-27-2021 01:46-0400 Body temperature 97.39 [degF] Fern Busch DO Work Phone: [employer] 10-27-2021 01:46-0400 Body weight 90.72 kg Fern Busch DO Work Phone: [employer] 10-27-2021 01:46-0400 SaO2% (BldA) [Mass fraction] 100 % Fern Busch DO Work Phone: [facility] 05-19-2021 12:30-0400 Body height 162.56 cm Glenys Aleksandra Other [facility] Other 05-19-2021 12:30-0400 Body mass index (BMI) [Ratio] 34.33 kg/m2 Glenys Aleksandra Other [facility] Other 05-19-2021 12:30-0400 Body temperature 98.6 [degF] Glenys Aleksandra Other [facility] Other 05-19-2021 12:30-0400 Body weight 90.72 kg Glenys Aleksandra Other [facility] Other 05-19-2021 12:30-0400 Respiratory rate 18 /min Gelnys Aleksandra Other [facility] Other 05-19-2021 12:30-0400 SaO2% (BldA) [Mass fraction] 96 % Glenys Aleksandra Other [facility] Other 02-20-2021 11:00-0500 Body height 162.56 cm Glenys Aleksandra Other [facility] Other 02-20-2021 11:00-0500 Body mass index (BMI) [Ratio] 36.04 kg/m2 Glenys Aleksandra Other [facility] Other 02-20-2021 11:00-0500 Body temperature 97.8 [degF] Glenys Aleksandra Other [facility] Other 02-20-2021 11:00-0500 Body weight 95.26 kg Glenys Aleksandra Other [facility] Other 02-20-2021 11:00-0500 Respiratory rate 18 /min Glenys Lake Other [facility] Other 02-20-2021 11:00-0500 SaO2% (BldA) [Mass fraction] 98 % [place]ys [place] Other [facility] Other Encounters Encounter Date Encounter Type Care Provider Facility Start: 07-19-2024 End: 07-19-2024 Office outpatient visit 15 minutes [facility] 1 [facility] Comment on above: Missed menses (Prima ry Dx); Encounter for insertion of Mirena IUD Start: 07-19-2024 End: 07-19-2024 ambulatory NO PCP NO PCP [facility] Start: 07-19-2024 ambulatory [facility] Start: 07-15-2024 End: 07-15-2024 Office outpatient visit 15 minutes Liz Mckeon MD Work Phone: [facility] Comment on above: Recurrent syncope (P rimary Dx); Heart palpitations; Inappropriate sinus tachycardia; POTS (postural orthostatic tachycardia syndrome) Start: 07-15-2024 End: 07-15-2024 ambulatory LIZ MCKEON [facility] Start: 07-14-2024 End: 07-14-2024 Telephone encounter Eulalia Torres CMA [facility] Start: 07-02-2024 End: 07-02-2024 Emergency department patient visit Elisa Arce MD Work Phone: [facility] Emergency [facility] Comment on above: Vaginal bleeding (Pr imary Dx); Miscarriage Start: 06-30-2024 ambulatory [facility] Start: 06-29-2024 End: 06-29-2024 Office outpatient visit 15 minutes [facility] 2 [facility] Comment on above: Absence of menstruat ion (Primary Dx); Nausea and vomiting in ; Positive test; Right upper quadrant pain; Diarrhea, unspecified type Start: 06-29-2024 End: 06-29-2024 ambulatory MELISSA LAGUNASDINACARLI [facility] Start: 06-28-2024 End: 06-28-2024 Emergency department patient visit [facility] Comment on above: Diarrhea, unspecifie d type (Primary Dx); Complication of in first trimester Start: 06-27-2024 End: 06-27-2024 Emergency department patient visit NO PCP NO PCP [facility] Start: 06-15-2024 End: 06-15-2024 Documentation procedure Juanita Avila [facility] Start: 06-14-2024 End: 06-14-2024 Emergency department patient visit NO PCP NO PCP [facility] Start: 04-13-2024 End: 04-13-2024 Emergency department patient visit NO PCP NO PCP [facility] Start: 04-11-2024 End: 04-11-2024 ambulatory PHYSICIAN NO [facility] Work Phone: Start: 04-11-2024 End: 04-11-2024 Patient encounter procedure PHYSICIAN NO [facility] [place] Work Phone: Start: 03-18-2024 End: 03-18-2024 Telephone encounter Argelia Francois [facility] Start: 03-03-2024 Registered Recurring PHYSICIAN NO [facility] Start: 03-03-2024 ambulatory Alpesh Connelly acility:[facility] Start: 02-17-2024 End: 02-17-2024 Emergency department patient visit NO PCP NO PCP [facility] Start: 12-29-2023 End: 12-29-2023 ambulatory [facility] Work Phone: Start: 12-29-2023 End: 12-29-2023 Patient encounter procedure [facility] [place] Work Phone: Start: 12-29-2023 End: 12-29-2023 Office outpatient new 30 minutes Dennsi Ayers MD Work Phone: [facility] Comment on above: POTS (postural ortho static tachycardia syndrome) (Primary Dx) Start: 12-29-2023 End: 12-29-2023 ambulatory [facility] Start: 12-28-2023 End: 12-28-2023 Telephone encounter Argelia Francois CMA [facility] Start: 12-07-2023 End: 12-07-2023 Emergency department patient visit NO PCP NO PCP [facility] Start: 11-30-2023 End: 12-02-2023 Telephone encounter Jarad Garner RN [facility] Start: 09-18-2023 End: 09-18-2023 Orders Only Beatriz Kebede MD Work Phone: [facility] Start: 08-28-2023 End: 08-28-2023 Office outpatient new 30 minutes Beatriz Kebede MD Work Phone: [facility] Comment on above: Recurrent syncope (P rimary Dx); Inappropriate sinus tachycardia ([facility]) Start: 08-28-2023 End: 09-16-2023 ambulatory [facility] Start: 08-27-2023 End: 08-27-2023 Telephone encounter Eulalia Torres CMA [facility] Start: 08-23-2023 End: 08-23-2023 Emergency department patient visit [facility] ED Comment on above: Orthostasis (Primary Dx); Syncope and collapse Start: 07-06-2023 End: 07-07-2023 Emergency department patient visit HILTON BOWIE [facility] Start: 06-12-2023 End: 06-12-2023 Office outpatient visit 10 minutes [facility] 2 [facility] Comment on above: Benign essential tanna roscopic hematuria (Primary Dx); History of depression Start: 05-08-2023 [facility] Start: 05-08-2023 End: 05-08-2023 care visit [facility] Comment on above: Encounter for routin e follow-up (Primary Dx); Counseling for initiation of control method; control counseling Start: 04-14-2023 Encounter No No Pcp [facility] 3E NICU Start: 04-13-2023 Encounter No No Pcp [facility] 3E NICU Start: 04-10-2023 Encounter No No Pcp [facility] 3E NICU Start: 04-08-2023 Encounter No No Pcp [facility] 3W NICU Start: 04-08-2023 End: 04-08-2023 [facility] Comment on above: Heart palpitations ( Primary Dx) Start: 04-07-2023 Encounter No No Pcp [facility] 3W NICU Start: 04-06-2023 Encounter No No Pcp [facility] 3W NICU Start: 03-31-2023 End: 04-03-2023 Evaluation and management of inpatient Marilynn MOSES Work Phone: [facility] - GEN 4 Start: 03-27-2023 End: 03-27-2023 ambulatory Tt Mfm Nst1 [facility] at [facility] Comment on above: Obesity affecting pr egnancy, antepartum, unspecified obesity type Start: 03-26-2023 Telephone encounter Marilynn MOSES Work Phone: [facility] - Labor Start: 03-25-2023 End: 03-25-2023 Subsequent care visit [facility] Comment on above: GA: 38w1d Start: 03-24-2023 End: 03-24-2023 ambulatory Tt Mfm Nst1 [facility] at [facility] Comment on above: Obesity affecting pr egnancy, antepartum, unspecified obesity type Start: 03-19-2023 Telephone encounter Melissa Barr BAR MANAGER-CNM Work Phone: [facility] - Labor Start: 03-19-2023 End: 03-19-2023 ambulatory Tth Mfm Nst1 [facility] at [facility] Comment on above: Obesity affecting pr egnancy, antepartum, unspecified obesity type Start: 03-18-2023 Telephone encounter Melissa Barr BAR MANAGER-CNM Work Phone: [facility] - Labor Start: 03-18-2023 End: 03-18-2023 Subsequent care visit [facility] C[facility] 1 [facility] Comment on above: GA: 37w1d Start: 03-17-2023 Telephone encounter Es Cisse RN C [facility] Start: 03-12-2023 End: 03-12-2023 Subsequent care visit [facility] 2 [facility] Comment on above: GA: 36w2d Start: 03-12-2023 End: 03-12-2023 ambulatory Tth Mfm Ns [facility] at [facility] Comment on above: Obesity affecting pr egnancy, antepartum, unspecified obesity type Start: 03-10-2023 End: 03-10-2023 Office outpatient visit 15 minutes Richie Farnsworth DO Work Phone: [facility] Comment on above: Heart palpitations ( Primary Dx) Start: 03-09-2023 Telephone encounter Eulalia Torres CMA [facility] Start: 03-08-2023 Telephone encounter Mavis Rock BAR MANAGER-CNM Work Phone: [facility] - Labor Start: 03-05-2023 Telephone encounter Melissa Barr BAR MANAGER-CNM Work Phone: [facility] - Labor Start: 03-05-2023 End: 03-05-2023 ambulatory Tth Mfm Nst1 [facility] at [facility] Comment on above: Obesity affecting pr egnancy, antepartum, unspecified obesity type Start: 03-05-2023 End: 03-05-2023 Subsequent care visit [facility] 2 [facility] - [facility] Comment on above: GA: 35w2d Start: 02-26-2023 Documentation procedure Hailey Boswellkarina on RN [facility] Start: 02-26-2023 Telephone encounter Cathryn Eric BAR MANAGER-CNM Work Phone: [facility] - Labor Start: 02-25-2023 Telephone encounter Marilynn Jacques BAR MANAGER-CNM Work Phone: [facility] Start: 09-08-2022 End: 09-08-2022 ambulatory Jolene Love Other [facility] Other Start: 09-08-2022 Office outpatient vi sit 25 minutes Jolene Love [facility] Start: 12-04-2021 End: 12-05-2021 ambulatory SHELBIE STEF Facility:[facility] Start: 12-03-2021 End: 12-03-2021 ambulatory Shelbie Stef Other [facility] Other Start: 12-03-2021 Office outpatient vi sit 15 minutes Shelbie Stef [facility] Start: 10-30-2021 End: 10-30-2021 ambulatory FAHAD ECHEVARRIA Facility:[facility] Start: 10-29-2021 End: 10-29-2021 ambulatory Shelbie Stef Other [facility] Other Start: 10-29-2021 Office outpatient vi sit 15 minutes Shelbie Stef [facility] Start: 10-27-2021 End: 10-27-2021 Emergency department patient visit Fern Busch DO Work Phone: [facility] ED Comment on above: Dizziness (Primary D x); Nonintractable headache, unspecified chronicity pattern, unspecified headache type Start: 05-19-2021 (URG) Urgent Care Visit Glenys colvin [facility] Start: 05-19-2021 End: 05-19-2021 ambulatory [place] Other [facility] Other Start: 02-20-2021 (URG) Urgent Care Visit Glenys colvin [facility] Start: 02-20-2021 End: 02-20-2021 ambulatory [place] Other [facility] Other Start: 08-25-2019 End: 08-26-2019 Patient encounter procedure SRI ROWE [facility] Start: 08-25-2019 End: 08-25-2019 Subsequent hospital visit by physician RON BATIST[facility] Procedures Date Procedure Procedure Detail Performing Clinician Start: 07-02-2024 Us preg uterus real time w/image dcmtn transvag Elisa Arce MD Work Phone: Start: 07-02-2024 Urinalysis microscop ic only Elisa Arce MD Work Phone: Start: 07-02-2024 Urnls dip stick/tabl et rgnt auto w/o microscopy Elisa Arce MD Work Phone: Start: 07-02-2024 Basic metabolic pane l calcium total Elisa Arce MD Work Phone: Start: 06-29-2024 Urine test visual color cmprsn meths Mavis A Cherri BAR MANAGER-CNM Work Phone: Start: 06-28-2024 Us preg uterus real time w/image dcmtn transvag Fern Busch DO Work Phone: Start: 06-28-2024 End: 06-28-2024 Comprehensive metabolic panel Unknown Provider Result Start: 12-29-2023 Ecg routine ecg w/le ast 12 lds w/i&r Beatriz Kebede MD Work Phone: Start: 08-28-2023 Follow-up visit Follow-up BEATRIZ RENELESTER Start: 08-23-2023 Radiologic exam ches t single view Elisa Arce MD Work Phone: Start: 08-23-2023 Basic metabolic pane l calcium total Elisa Arce MD Work Phone: Start: 08-23-2023 Ecg routine ecg w/le ast 12 lds w/i&r Elisa Arce MD Work Phone: Start: 06-12-2023 Adult depression scr eening assessment Chs 2 Start: 05-08-2023 Urine test visual color cmprsn meths Mireya Jean-Baptiste BAR MANAGER-CNM Work Phone: Start: 05-08-2023 Adult depression scr eening assessment Pao Teixeira [employer]ILD[employer] Start: 04-01-2023 End: 04-01-2023 Blood gases any combination ph pco2 po2 co2 hco3 Augustine Richter MD Work Phone: Start: 04-01-2023 REPEATED ABORH Marilynn M Ashby Bojanic BAR MANAGER-CNM Work Phone: Start: 03-31-2023 Antibody screen Marilynn Mockjanic BAR MANAGER-CNM Work Phone: Start: 03-31-2023 Blood count complete automated Marilynn Ashby Bojanic BAR MANAGER-CNM Work Phone: Start: 03-31-2023 End: 03-31-2023 Blood typing serologic abo Marilynn dallas Bojanic BAR MANAGER-CNM Work Phone: Start: 03-31-2023 REPEATED ABORH Marilynn Ashby Bojanic BAR MANAGER-CNM Work Phone: Start: 03-31-2023 Drug tst prsmv instr mnt chem analyzers pr date Marilynn Ashby Bojanic BAR MANAGER-CNM Work Phone: Start: 03-27-2023 nonstress test Isidro Smith MD Work Phone: Start: 03-25-2023 nonstress test Isidro Smith MD Work Phone: Start: 03-19-2023 nonstress test Mi ldred Bala Barr BAR MANAGER-CNM Work Phone: Start: 03-13-2023 nonstress test Mi ldred Bala Bruscsarthak BAR MANAGER-CNM Work Phone: Start: 03-05-2023 nonstress test Mi ldred Bala Bruconcepción BAR MANAGER-CNM Work Phone: Start: 10-21-2022 Adult depression scr eening assessment Marilynn Symone Mockjannelson BAR MANAGER-CNM Work Phone: Start: 10-27-2021 Urinalysis microscop ic only Fern Busch DO Work Phone: Start: 10-27-2021 Urnls dip stick/tabl et rgnt auto w/o microscopy Fern Busch DO Work Phone: Start: 10-27-2021 Ct head/brain w/o co ntrast material Fern Busch DO Work Phone: Start: 10-27-2021 Basic metabolic pane l calcium total Fern Busch DO Work Phone: Start: 01-02-2021 History of tonsillectomy S/P tonsill ectomy Marilynn Symone Floresic BAR MANAGER-CNM Work Phone: Start: 08-25-2019 Level iv surg pathol ogy gross&microscopic exam SRI ROWE Plan of Treatment Date Care Activity Detail Author Start: 2077 Respiratory Syncytial Virus (RSV) or age 60 yrs+ (1 - 1-dose 75+ series) Respiratory Syncytial Virus (RSV) or age 60 yrs+ (1 - 1-dose 75+ series) [facility] Start: 01-06-2033 DTaP,Tdap and Td Vaccines (8 - Td or Tdap) DTaP,Tdap and Td Vaccines (8 - Td or Tdap) [facility] Start: 01-06-2033 DTaP/Tdap/Td vaccine (8 - Td or Tdap) DTaP/Tdap/Td vaccine (8 - Td or Tdap) [facility] Start: 07-19-2025 Adult BMI Screening Adult BMI Screening [facility] Start: 07-19-2025 Tobacco Screening Tobacco Screening [facility] Start: 07-15-2025 Adult BMI Screening Adult BMI Screening [facility] Start: 07-15-2025 Tobacco Screening Tobacco Screening [facility] Start: 06-29-2025 Adult BMI Screening Adult BMI Screening [facility] Start: 06-29-2025 Tobacco Screening Tobacco Screening [facility] Start: 06-14-2025 Adult BMI Screening Adult BMI Screening [facility] Start: 06-14-2025 Tobacco Screening Tobacco Screening [facility] Start: 01-23-2025 End: 01-23-2025 Patient encounter procedure 01/23/2025 1:00 PM EST Office Visit [facility] [address] [place] [address] Pacheco Hernandez MD [address] [place] [address] [facility] Start: 12-28-2024 Adult BMI Screening Adult BMI Screening [facility] Start: 12-28-2024 Tobacco Screening Tobacco Screening [facility] Start: 12-06-2024 Adult BMI Screening Adult BMI Screening [facility] Start: 12-06-2024 Tobacco Screening Tobacco Screening [facility] Start: 11-01-2024 DTaP/Tdap/Td vaccine (7 - Td or Tdap) DTaP/Tdap/Td vaccine (7 - Td or Tdap) [facility] Start: 10-31-2024 Influenza vaccination Influenza Vaccine [facility] Start: 09-30-2024 Influenza vaccination Flu vaccine (Season Ended) [facility] Start: 08-27-2024 Adult BMI Screening Adult BMI Screening [facility] Start: 08-27-2024 Tobacco Screening Tobacco Screening [facility] Start: 08-16-2024 End: 08-16-2024 Patient encounter procedure 08/16/2024 1:00 PM EDT Office Visit [facility] [address] [place] [id number] [facility] Start: 07-19-2024 End: 07-19-2024 Patient encounter procedure [facility] Start: 07-15-2024 End: 07-15-2024 Patient encounter procedure 07/15/2024 1:45 PM EDT Office Visit [facility] [address] [place] [phone] Liz Mckeon MD [address] [place] [address] [facility] Start: 07-04-2024 End: 08-02-2024 hCG, Quantitative, hCG, Quantitative, Lab Routine Vaginal bleeding Miscarriage Expected: 07/04/2024, Expires: 08/02/20[facility] Comment on above: Expected: 07/04/2024, Expires: 5 Start: 07-01-2024 End: 06-28-2025 hCG, Quantitative, hCG, Quantitative, Lab Routine Complication of in first trimester Expected: 07/01/2024, Expires: 06/28/2025 [facility] Comment on above: Expected: 07/01/2024, Expires: 6 Start: 06-30-2024 End: 06-29-2025 hCG, quantitative, hCG, quantitative, Lab Routine Positive test Expected: 06/30/2024 (Approximate), Expires: 06/29/2025 [employer] Work Phone: Comment on above: Expected: 06/30/2024 (Approximate), Expi res: 06/29/2025 Start: 06-29-2024 [facility] Start: 06-29-2024 End: 06-29-2025 US Abdomen limited Ultrasound abdomen limited Imaging Routine Right upper quadrant pain Expected: 06/29/2024, Expires: 06/29/2025 [facility] Comment on above: Expected: 06/29/2024, Expires: Start: 06-11-2024 Adult BMI Screening Adult BMI Screening [facility] Start: 06-11-2024 Depression Screening Depression Screening [facility] Start: 06-11-2024 Tobacco Screening Tobacco Screening [facility] Start: 05-07-2024 Adult BMI Screening Adult BMI Screening [facility] Start: 05-07-2024 Depression Screening Depression Screening [facility] Start: 05-07-2024 Tobacco Screening Tobacco Screening [facility] Start: 04-08-2024 Tobacco Screening Tobacco Screening [facility] Start: 04-03-2024 Tobacco Screening Tobacco Screening [facility] Start: 03-31-2024 Adult BMI Screening Adult BMI Screening [facility] Start: 03-27-2024 Tobacco Screening Tobacco Screening [facility] Start: 03-25-2024 Adult BMI Screening Adult BMI Screening [facility] Start: 03-25-2024 Tobacco Screening Tobacco Screening [facility] Start: 03-24-2024 Tobacco Screening Tobacco Screening [facility] Start: 03-21-2024 End: 03-21-2024 Patient encounter procedure 03/21/2024 3:00 PM EST Office Visit [facility] [address] [place] [phone] Rigoberot Almanzar MD [address] [place] [address] [facility] Start: 03-18-2024 Adult BMI Screening Adult BMI Screening [facility] Start: 03-18-2024 Tobacco Screening Tobacco Screening [facility] Start: 03-17-2024 Tobacco Screening Tobacco Screening [facility] Start: 03-16-2024 Adult BMI Screening Adult BMI Screening [facility] Start: 03-12-2024 Adult BMI Screening Adult BMI Screening [facility] Start: 03-12-2024 Tobacco Screening Tobacco Screening [facility] Start: 03-08-2024 Adult BMI Screening Adult BMI Screening [facility] Start: 03-08-2024 Tobacco Screening Tobacco Screening [facility] Start: 03-05-2024 Adult BMI Screening Adult BMI Screening [facility] Start: 03-05-2024 Tobacco Screening Tobacco Screening [facility] Start: 02-27-2024 Adult BMI Screening Adult BMI Screening [facility] Start: 02-26-2024 Tobacco Screening Tobacco Screening [facility] Start: 02-25-2024 Tobacco Screening Tobacco Screening [facility] Start: 02-20-2024 Adult BMI Screening Adult BMI Screening [facility] Start: 02-08-2024 Screening for Chlamydia trachomatis Chlamydia Screening [facility] Start: 12-29-2023 End: 12-29-2023 [facility] Start: 11-30-2023 Screening for malignant neoplasm of cervix Pap Smear [facility] Start: 11-01-2023 COVID-19 Vaccine ( season) COVID-19 Vaccine () [facility] Start: 11-01-2023 COVID-19 Vaccine ( season) COVID-19 Vaccine () [facility] Start: 11-01-2023 Influenza vaccination Influenza Vaccine [facility] Start: 10-22-2023 Depression Screening Depression Screening [facility] Start: 08-28-2023 End: 08-28-2023 Patient encounter procedure 08/28/2023 1:15 PM EDT Office Visit [facility] [place] [address] Beatriz Kebede MD [address] [place] [address] [facility] Start: 06-12-2023 End: 06-12-2023 Patient encounter procedure 06/12/2023 1:00 PM EDT Office Visit [facility] Services [address] [place] [address] [facility] Start: 05-08-2023 End: 05-08-2023 ambulatory 05/08/2023 1:00 PM EST Visit [facility] [address] [place] [address] [facility] Start: 04-08-2023 End: 04-08-2023 Telemedicine consultation with patient 04/08/2023 1:45 PM EST Telemedicine [facility] [address] [place] [address] [facility] Start: 03-31-2023 End: 03-31-2023 Patient encounter procedure 03/31/2023 8:00 AM EST Procedure visit [facility] [address] [place] [address] [facility] Start: 03-27-2023 End: 03-27-2023 ambulatory 03/27/2023 1:45 PM EST Support Visit M[facility]- Medicine at [facility] [address] [place] [address] [facility] at [facility] Start: 03-25-2023 End: 03-25-2023 Patient encounter procedure 03/25/2023 3:00 PM EST Routine [facility] [address] [place] [address] [facility] Start: 03-24-2023 End: 03-24-2023 Patient encounter procedure 03/24/2023 2:45 PM EST Appointment [facility] - [facility] [address] [place] [address] [facility] - [facility] Start: 03-24-2023 End: 03-24-2023 ambulatory 03/24/2023 2:15 PM EST Support Visit [facility] at [facility] [address] [place] [address] [facility] Start: 03-19-2023 End: 03-19-2023 ambulatory 03/19/2023 1:15 PM EST Support Visit [facility] at [facility] [address] [place] [address] [facility] Start: 03-18-2023 End: 03-18-2023 Patient encounter procedure [facility] Start: 03-16-2023 End: 03-16-2023 Patient encounter procedure 03/16/2023 2:00 PM EST Appointment [facility] [address] [place] [address] [facility] Start: 03-16-2023 End: 03-16-2023 ambulatory 03/16/2023 1:15 PM EST Support Visit [facility] at [place] [address] [place] [address] [facility] at [facility] Start: 03-12-2023 End: 03-12-2023 Patient encounter procedure [facility] Start: 03-12-2023 End: 03-12-2023 ambulatory 03/12/2023 12:45 PM EST Support Visit [facility] at [place] [id number] [place] [address] [facility] at [facility] Start: 03-10-2023 End: 03-10-2023 Patient encounter procedure 03/10/2023 4:15 PM EST Office Visit [facility] [place] [address] Richie Farnsworth, DO [address] [place] [address], [address] [place] [address] [facility] Start: 03-05-2023 End: 03-05-2023 ambulatory 03/05/2023 1:15 PM EST Support Visit [facility] at [facility] [address] [place] [address] [facility] Start: 03-05-2023 End: 03-05-2023 Patient encounter procedure [facility] Start: 02-25-2023 End: 02-25-2023 Patient encounter procedure 02/25/2023 1:15 PM EST Office Visit [facility] [address] [place] [address] Lin Rushing MD [address] [place] [address] [facility] Start: 02-25-2023 End: 02-25-2023 Patient encounter procedure 02/25/2023 9:45 AM EST Appointment [facility] [address] [place] [address] [facility] Start: 02-25-2023 End: 02-25-2023 ambulatory 02/25/2023 9:15 AM EST Support Visit [facility] at [facility] [address] [place] [address] [facility] Start: 10-31-2022 COVID-19 Vaccine ( season) COVID-19 Vaccine ( season) [facility] Start: 10-31-2021 Influenza vaccination Flu vaccine (#1) [facility] Start: 2020 Adult BMI Follow Up Plan Adult BMI Follow Up Plan [facility] Start: 2020 Hepatitis C screening Hepatitis C screen [facility] Start: 11-21-2020 COVID-19 Vaccine (2 - Pfizer series) COVID-19 Vaccine (2 - Pfizer series) [facility] Start: 2018 Screening for Chlamydia trachomatis [facility] Start: 2017 HIV screening [facility] Start: 2017 HPV vaccine (1 - 3-dose series) [facility] ([facility] - 3-dose series) [facility] Start: 2014 Depression Screen [facility] Screen [facility] Start: 2013 HPV vaccine (1 - 2-dose series) HPV vaccine (1 - 2-dose series) [facility] End: 06-29-2025 Amylase Amylase Lab Routine Right upper quadrant pain 1 Occurrences starting 06/29/2024 until 06/29/2025 [facility] Comment on above: 1 Occurrences starting 06/29/2024 until 06/29/2025 End: 06-11-2024 Bacteria identified in Urine by Culture Urine culture Microbiology Routine Benign essential microscopic hematuria 1 Occurrences starting 06/12/2023 until 06/11/2024 [employer] Work Phone: Comment on above: 1 Occurrences starting 06/12/2023 until 06/11/2024 Bacteria identified in Urine by Culture Urine culture Microbiology Routine Benign essential microscopic hematuria 06/12/2023 8:15 PM EDT [facility] End: 06-28-2024 Blood Occult Stool Screen #1 Blood Occult Stool Screen #1 Lab STAT One Time for 1 Occurrences starting 06/28/2024 until 06/28/2024 [employer] Comment on above: One Time for 1 Occurrences starting 06/01 until 06/28/2024 End: 03-18-2024 CBC W Auto Differential panel - Blood CBC auto differential Lab Routine Anemia during in third trimester 1 Occurrences starting 03/18/2023 until 03/18/2024 [employer] Work Phone: Comment on above: 1 Occurrences starting 03/18/2023 until 03/18/2024 End: 06-28-2024 Clostridium Difficile Toxin/Antigen Clostridium Difficile Toxin/Antigen Microbiology STAT 36 Hours Expiring for 36 Hours starting 06/28/2024 until 06/28/2024 [employer] Comment on above: 36 Hours Expiring for 36 Hours starting 06/28/2024 until 06/28/2024 EKG 12 Lead EKG 12 Lead ECG STAT 08/23/2023 11:12 AM EDT [employer] Work Phone: End: 08-23-2023 Extended cardiac holter monitor (3 day-14 day) [employer] Comment on above: One Time for 1 Occurrences starting 08/01 until 08/23/2023 End: 03-19-2024 nonstress test - Maternal Medicine nonstress test - Maternal Medicine OB Routine Obesity affecting , antepartum, unspecified obesity type 2x/wk for 6 Occurrences starting 03/19/2023 until 03/19/2024 [facility] Work Phone: Comment on above: 2x/wk for 6 Occurrences starting until 03/19/2024 End: 06-28-2024 Gastrointestinal Panel, Molecular Gastrointestinal Panel, Molecular Microbiology STAT One Time for 1 Occurrences starting 06/28/2024 until 06/28/2024 [employer] Comment on above: One Time for 1 Occurrences starting 06/01 until 06/28/2024 End: 06-28-2024 Giardia / Cryptosporidum antigens, DFA Giardia / Cryptosporidum antigens, DFA Lab STAT One Time for 1 Occurrences starting 06/28/2024 until 06/28/2024 [employer] Comment on above: One Time for 1 Occurrences starting 06/01 until 06/28/2024 End: 07-19-2025 hCG, quantitative, hCG, quantitative, Lab Routine Missed menses 1 Occurrences starting 07/19/2024 until 07/19/2025 [facility] Work Phone: Comment on above: 1 Occurrences starting 07/19/2024 until 07/19/2025 End: 06-28-2024 SPECIMEN REJECTION [employer] Comment on above: Once for 1 Occurrences starting 06/29/19 until 06/28/2024 End: 03-11-2024 Strep B screen Strep B screen Microbiology Routine High-risk first of young woman, third trimester 36 weeks gestation of 1 Occurrences starting 03/12/2023 until 03/11/2024 [facility] Work Phone: Comment on above: 1 Occurrences starting 03/12/2023 until 03/11/2024 Streptococcus agalac tiae [Presence] in Vag+Rectum by Organism specific culture Strep B screen Microbiology Routine High-risk first of young woman, third trimester 36 weeks gestation of 03/12/2023 7:33 PM EST [facility] End: 08-26-2019 Surgical Pathology Surgical Pathology Lab Routine Once for 1 Occurrences starting 08/26/2019 until 08/26/[address] [facility] Comment on above: Once for 1 Occurrences starting 08/26/19 20 until 08/26/2019 End: 06-28-2024 Urinalysis Urinalysis Lab STAT One Time for 1 Occurrences starting 06/28/2024 until 06/28/2024 [facility] Comment on above: One Time for 1 Occurrences starting 06/01 until 06/28/2024 Us preg uterus real time w/image dcmtn transvag US OB TRANSVAGINAL Imaging STAT 06/28/2024 5:50 PM EDT [facility] Work Phone: End: 03-05-2024 Vaginitis Panel PCR Vaginitis Panel PCR Microbiology Routine uterine contractions in third trimester, antepartum 1 Occurrences starting 03/05/2023 until 03/05/2024 [facility] Work Phone: Comment on above: 1 Occurrences starting 03/05/2023 until 03/05/2024 Vaginitis Panel PCR Vaginitis Pa cornelius PCR Microbiology Routine uterine contractions in third trimester, antepartum 03/05/2023 12:52 PM EST [facility] Immunizations Immunization Date Immunization Notes Care Provider Fa cility 04-02-2023 varicella zoster imm une globulin Marilynn Ashby Bojanic BAR MANAGER-CNM Work Phone: [facility] 01-06-2023 tetanus toxoid, redu raad diphtheria toxoid, and acellular pertussis vaccine, adsorbed Marilynn Ashby Bojanic BAR MANAGER-CNM Work Phone: [facility] 11-24-2022 influenza virus vacc ine, unspecified formulation [facility] 2 [facility] 10-31-2020 COVID-19, mRNA, LNP- S, PF, 30mcg/0.3mL Dose Marilynn Ashby Bojanic BAR MANAGER-CNM Work Phone: [facility] 04-30-2020 hepatitis A vaccine, pediatric/adolescent dosage, 2 dose schedule Marilynn Ashby Bojanic BAR MANAGER-CNM Work Phone: [facility] 04-30-2020 meningococcal B vacc ine, recombinant, OMV, adjuvanted Marilynn Ashby Bojanic BAR MANAGER-CNM Work Phone: [facility] 03-28-2020 meningococcal B vacc ine, recombinant, OMV, adjuvanted Marilynn Ashby Bojanic BAR MANAGER-CNM Work Phone: [facility] 03-28-2020 meningococcal oligosaccharide (groups A, C, Y and W-135) diphtheria toxoid conjugate vaccine (MCV4O) Marilynn Ashby Bojanic BAR MANAGER-CNM Work Phone: [facility] 01-20-2017 hepatitis A vaccine, pediatric/adolescent dosage, 2 dose schedule Marilynn Ashby Bojanic BAR MANAGER-CNM Work Phone: [facility] 11-01-2014 tetanus toxoid, redu raad diphtheria toxoid, and acellular pertussis vaccine, adsorbed Marilynn Ashby Bojanic BAR MANAGER-CNM Work Phone: [facility] 11-01-2014 varicella virus vaccine Salomon ine Ashby Bojanic BAR MANAGER-CNM Work Phone: [facility] 11-26-2007 diphtheria, tetanus toxoids and acellular pertussis vaccine Marilynn Ashby Bojanic BAR MANAGER-CNM Work Phone: [facility] 11-26-2007 measles, mumps and rubella virus vaccine Marilynn Ashby Bojanic BAR MANAGER-CNM Work Phone: [facility] 11-26-2007 poliovirus vaccine, inactivated Marilynn Ashby Bojanic BAR MANAGER-CNM Work Phone: [facility] 12-18-2005 diphtheria, tetanus toxoids and acellular pertussis vaccine Marilynn Ashby Bojanic BAR MANAGER-CNM Work Phone: [facility] 12-18-2005 haemophilus influenz ae type b vaccine, conjugate unspecified formulation Marilynn Ashby Bojanic BAR MANAGER-CNM Work Phone: [facility] 12-18-2005 haemophilus influenz ae type b vaccine, PRP-T conjugate Marilynn Ashby Bojanic BAR MANAGER-CNM Work Phone: [facility] 12-18-2005 measles, mumps and rubella virus vaccine Marilynn Ashby Bojanic BAR MANAGER-CNM Work Phone: [facility] 12-18-2005 measles, mumps, rube lla, and varicella virus vaccine Marilynn Ashby Bojanic BAR MANAGER-CNM Work Phone: [facility] 12-18-2005 varicella virus vaccine Salomon ine Ashby Bojanic BAR MANAGER-CNM Work Phone: [facility] 05-22-2004 diphtheria, tetanus toxoids and acellular pertussis vaccine Marilynn Ashby Bojanic BAR MANAGER-CNM Work Phone: [facility] 05-22-2004 DTaP-hepatitis B and poliovirus vaccine Marilynn Ashby Bojanic BAR MANAGER-CNM Work Phone: [facility] 05-22-2004 haemophilus influenz ae type b vaccine, conjugate unspecified formulation Marilynn Ashby Bojanic BAR MANAGER-CNM Work Phone: [facility] 05-22-2004 haemophilus influenz ae type b vaccine, PRP-T conjugate Marilynn Ashby Bojanic BAR MANAGER-CNM Work Phone: [facility] 05-22-2004 hepatitis B vaccine, adult dosage Marilynn Ashby Bojanic BAR MANAGER-CNM Work Phone: [facility] 05-22-2004 pneumococcal conjuga te vaccine, 13 valent Marilynn Ashby Bojanic BAR MANAGER-CNM Work Phone: [facility] 05-22-2004 pneumococcal conjuga te vaccine, 7 valent Marilynn Ashby Bojanic BAR MANAGER-CNM Work Phone: [facility] 05-22-2004 poliovirus vaccine, inactivated Marilynn Ashby Bojanic BAR MANAGER-CNM Work Phone: [facility] 09-07-2003 diphtheria, tetanus toxoids and acellular pertussis vaccine Marilynn Ashby Bojanic BAR MANAGER-CNM Work Phone: [facility] 09-07-2003 DTaP-hepatitis B and poliovirus vaccine Marilynn Ashby Bojanic BAR MANAGER-CNM Work Phone: [facility] 09-07-2003 haemophilus influenz ae type b vaccine, conjugate unspecified formulation Marilynn Ashby Bojanic BAR MANAGER-CNM Work Phone: [facility] 09-07-2003 haemophilus influenz ae type b vaccine, PRP-T conjugate Marilynn Ashby Bojanic BAR MANAGER-CNM Work Phone: [facility] 09-07-2003 hepatitis B vaccine, adult dosage Marilynn Ashby Bojanic BAR MANAGER-CNM Work Phone: [facility] 09-07-2003 pneumococcal conjuga te vaccine, 13 valent Marilynn Ashby Bojanic BAR MANAGER-CNM Work Phone: [facility] 09-07-2003 pneumococcal conjuga te vaccine, 7 valent Marilynn Ashby Bojanic BAR MANAGER-CNM Work Phone: [facility] 09-07-2003 poliovirus vaccine, inactivated Marilynn Ashby Bojanic BAR MANAGER-CNM Work Phone: [facility] 04-25-2003 diphtheria, tetanus toxoids and acellular pertussis vaccine Marilynn Ashby Bojanic BAR MANAGER-CNM Work Phone: [facility] 04-25-2003 DTaP-hepatitis B and poliovirus vaccine Marilynn Ashby Bojanic BAR MANAGER-CNM Work Phone: [facility] 04-25-2003 haemophilus influenz ae type b vaccine, conjugate unspecified formulation Marilynn Ashby Bojanic BAR MANAGER-CNM Work Phone: [facility] 04-25-2003 haemophilus influenz ae type b vaccine, PRP-T conjugate Marilynn Ashby Bojanic BAR MANAGER-CNM Work Phone: [facility] 04-25-2003 hepatitis B vaccine, adult dosage Marilynn Ashby Bojanic BAR MANAGER-CNM Work Phone: [facility] 04-25-2003 pneumococcal conjuga te vaccine, 13 valent Marilynn Ashby Bojanic BAR MANAGER-CNM Work Phone: [facility] 04-25-2003 pneumococcal conjuga te vaccine, 7 valent Marilynn Ashby Bojanic BAR MANAGER-CNM Work Phone: [facility] 04-25-2003 poliovirus vaccine, inactivated Marilynn Ashby Bojanic BAR MANAGER-CNM Work Phone: [facility] 2002 hepatitis B vaccine, adult dosage Marilynn Ashby Bojanic BAR MANAGER-CNM Work Phone: [facility] NEGATED: Highlighted row has not occurred!06-14-2024 Human rabies vaccine from Chicken fibroblast culture Juanita Mitchell RN [facility] NEGATED: Highlighted row has not occurred!06-14-2024 rabies immune globulin Juanita Mitchell RN [facility] Payers Date Payer Category Payer Blue Cross Riley garvin [employer] - Other ANTH [id number] 2024 Blue Cross Blue Shield [id number] 2023 Self-pay [id number] 2022 Medicaid [id number] 2022 Medicaid [id number] [id number] 2014 Unknown BCBS [place]BS - [place] P PO xxxxxxxxxxxx 2014-Present [address] [place] [address] xxxxxxxxxxxx [id number] 2002 Unknown [id number] 2.16.840.1.914043.3.579.2. 173 2002 Unknown [id number] 2.16840.1.950808.3.579.2. 173 2002 Unknown [id number] 2.16840.1.362986.3.579.2. 173 2002 Unknown [id number] 2.16.840.1.567739.3.579.2. 173 2002 Unknown [id number] 2.16.840.1.422480.3.579.2. 1286 2002 Unknown [id number] 2.16.840.1.763355.3.579.2. 1286 2002 Unknown [id number] 2.16.840.1.827704.3.579.2. 1286 2002 Unknown [id number] 2.16.840.1.702631.3.579.2. 1286 2002 Unknown [id number] 2.16.840.1.648324.3.579.2. 1286 2002 Unknown [id number] 2.16.840.1.297405.3.579.2. 6 2002 Unknown [id number] 2.16.840.1.387139.3.579.2. 1286 2002 Unknown [id number] 2.16.840.1.998546.3.579.2. 1286 2002 Unknown [id number] 2.16.840.1.943868.3.579.2. 6 2002 Unknown [id number] 2.16.840.1.039178.3.579.2. 128 2002 Unknown [id number] 2.16.840.1.992855.3.579.2. 1285 2002 Unknown [id number] 2.16.840.1.504852.3.579.2. 1286 1973 Unknown [id number] 2.16.840.1.059802.3.579.2. 593 1973 Unknown [id number] 2.16.840.1.677672.3.579.2. 593 1959 Unknown [id number] Unknown [id number] 2.16840.1.681003.3.579.2. 175 Unknown [id number] 2.16840.1.133847.3.579.2. 531 Social History Date Type Detail [facility] [place] Start: 2002 Sex Assigned At Not on file [place] Start: 03-15-2020 End: 09-18-2022 Sex Assigned At [facility] Start: 10-27-2021 End: 05-12-2022 Tobacco smoking status NHIS Never smoked tobacco [employer] Phone: Start: 10-27-2021 End: 05-12-2022 Tobacco use and exposure Smokeless tobacco non-user [employer] Phone: Start: 10-27-2021 End: 07-02-2024 Alcohol intake Lifetime non-drinker (finding) [employer] Phone: Start: 2002 Sex Assigned At Female F [facility] Start: 02-17-2024 End: 07-15-2024 Alcoholic beverage intake [facility] Start: 03-15-2020 End: 09-18-2022 History of Social function [facility] Do you belong to any clubs or organizations such as protestant groups, unions, fraternal or athletic groups, or school groups? No [facility] Are you now , , , , never or living with a partner? Living with partner [facility] How often to you hav e a drink containing alcohol? Never [facility] How many standard dr inks containing alcohol do you have on a typical day? Patient does not drink [facility] Do you feel stress - tense, restless, nervous, or anxious, or unable to sleep at night because your mind is troubled all the time - these days [OSQ] Not at all [facility] Start: 10-05-2014 End: 08-26-2019 Sex Female (finding) [facility] Start: 07-15-2022 [facility] The thought of kimi ng myself has occurred to me Hardly ever [facility] Start: 07-19-2024 Alcoholic beverage intake Curr ent drinker of alcohol (finding) [facility] Goals Date Patient Goal Desired Activity /State Personal health goal Comment on above: Formatting of this n ote might be different from the original. Evaluation of progress towards goal: Safe dc transition from hospital to home with family support. Clinical Notes 02-20-2021 to 07-19-2024 Yamileth San LPN - 07/19/2024 1:30 PM Lenin Banks APRN-SHERIF - 07/19/2024 1:30 PM AURELIA Rueda - 07/19/2024 1:30 PM Mireya Mckeon MD - 07/15/2024 1:45 PM EDTAttachments Note Date & Type Note Facility 07-19-2024 History of Presen t illness Narrative Pt is in the office for possible loss Pt request Contraception Pt would like IUD or OCP Pt has no other concerns at todays visit Subjective Patient ID: Jolene Morales is a 23 y.o. female who presents for confirmation of visit. Pt was told she was 06/28 in [place] ED. Her HCG at that time was 37 and on 07/08 is dropped to 12. Pt was in the ED on 07/02/24 with heavy vaginal bleeding just prior that she equated to a like a period. Pt states the bleeding/cramping has since stopped. Pt states she would like to have a Mirena IUD placed. She has not had unprotected sexual intercourse in over two weeks. Please see separate insertion note for insertion. UPT negative HPI The following portions of the patient's history were reviewed and updated as appropriate: allergies, current medications, past family history, past medical history, past social history, past surgical history, problem list, and medication reconciliation was completed including current medication and post discharge medication. Review of Systems Constitutional: Negative. HENT: Negative. Gastrointestinal: Negative. Genitourinary: Negative. Psychiatric/Behavioral: Negative. Objective Physical Exam Constitutional: Appearance: Normal appearance. She is obese. Neurological: General: No focal deficit present. Mental Status: She is alert and oriented to person, place, and time. Mental status is at baseline. Psychiatric: Mood and Affect: Mood normal. Behavior: Behavior normal. Thought Content: Thought content normal. Judgment: Judgment normal. Assessment/Plan Jolene was seen today for procedure. Diagnoses and all orders for this visit: Missed menses - Cancel: Ultrasound office; Future - hCG, quantitative, ; Future Encounter for insertion of Mirena IUD - levonorgestreL (MIRENA) 21 mcg/24hr (up to 8 yrs) 52 mg IUD 1 each Pt to F/U in 4 weeks for string check. AURELIA Biswas 07/19/24 142 IUD insertion procedure Indications: Prevention of LMP: Menstrual History: OB History 2 Para 1 Term 1 0 AB 0 Living 1 SAB 0 IAB 0 Ectopic 0 Multiple 0 Live Births 1 Menarche age: 14 UPT: Negative Procedure Details The risks (including infection, bleeding, pain, and uterine perforation) and benefits of the procedure were explained to the patient and Written informed consent was obtained. GC/CT: GC:unknown CT:unknown Cervix cleansed with Betadine swab x 3. Tenaculum placed at 2 and 10 o'clock. Large bleeding due to Tenaculum placement, silver nitrate utilized. EBL 200 mL. Bleeding stopped after silver nitrate applied. SHERIF Guillen to room, tenaculum not reapplied. Uterus sounded to 7 cm. IUD inserted without difficulty. String visible and trimmed to 2 inches. Patient tolerated procedure well. Application Development Specialist offered, declined IUD Information: Mirena, Lot # [id number], Expiration date 07/30/26. Condition: Stable Complications: None Plan: The patient was advised to call for any fever or for prolonged or severe pain or bleeding. She was advised to use NSAID as needed for mild to moderate pain. Disc risks, benefits and alternatives of irregular VB/cramping, advised protected sex for 7 days if hormonal IUD. All questions answered, pt understands. RTC in 4 weeks for string check. Safe sex practice reviewed. AURELIA Biswas 07/19/24 142 documented in this encounter [facility] 07-15-2024 History of Presen t illness Narrative Jolene Morales Date of visit: 07/15/2024 Date of : 2000 Age: 23 y.o. Patient Active Problem List Diagnosis Depression Class 1 obesity due to excess calories in adult S/P tonsillectomy Anemia during in third trimester Recurrent syncope Heart palpitations Family history of heart disease Shortness of breath Migraines Inappropriate sinus tachycardia Carrier of spinal muscular atrophy Dog bite POTS (postural orthostatic tachycardia syndrome) No Known Allergies Current Outpatient Medications Medication Sig Dispense Refill benzonatate (TESSALON PERLES) 100 mg capsule Take 1 capsule (100 mg total) by mouth every 8 (eight) hours. (Patient not taking: Reported on 06/14/2024) 21 capsule 0 ivabradine (CORLANOR) 5 mg tablet tablet Take 1 tablet (5 mg total) by mouth in the morning and 1 tablet (5 mg total) before bedtime. (Patient not taking: Reported on 06/14/2024) 90 tablet 3 ondansetron ODT (ZOFRAN ODT) 4 mg disintegrating tablet Dissolve 1 tablet (4 mg total) on tongue every 8 (eight) hours as needed for nausea. (Patient not taking: Reported on 07/15/2024) 30 tablet 0 vit no.[id number] acid ( VITAMIN) 27 mg iron- 800 mcg tablet Take 1 tablet by mouth in the morning. (Patient not taking: Reported on 07/15/2024) 30 tablet 12 No current facility-administered medications for this visit. Chief Complaint Patient presents with Follow-up 6MO F/U POTS SCHED W/PT NO TESTING History of Present Illness Patient reports being off her meds for a while as she lost her insurance but now she is back on she has had no improvement in her syncope near-syncope it has been about the same she has had some passing out but mostly near-syncope she has had this condition chronically Past Medical History: Diagnosis Date Asthma Depression Inappropriate sinus tachycardia Polycystic ovary syndrome Polyhydramnios affecting in third trimester 03/31/2023 POTS (postural orthostatic tachycardia syndrome) No data recorded No data recorded No data recorded Past Surgical History: Procedure Laterality Date TONSILLECTOMY Family History Problem Relation Age of Onset Mental illness Mother depression, anxiety Asthma Mother Mental illness Father Other Father breathing problems since COVID Depression Sister No Known Problems Brother Mental illness Maternal Grandmother Heart disease Maternal Grandmother age 44 Diabetes Maternal Grandmother Breast cancer Maternal Grandmother after age 50 Diabetes Maternal Grandfather Dementia Maternal Grandfather Irritable bowel syndrome Paternal Grandmother Diabetes Maternal Uncle Blood Clots Neg Hx Clotting disorder Neg Hx Uterine cancer Neg Hx Colon cancer Neg Hx Pancreatic cancer Neg Hx Ovarian cancer Neg Hx Social History Socioeconomic History Marital status: Single Spouse name: Not on file Number of children: Not on file Years of education: Not on file Highest education level: Not on file Occupational History Not on file Tobacco Use Smoking status: Never Smokeless tobacco: Never Vaping Use Vaping status: Every Day Substances: Nicotine, Flavoring Devices: Disposable Substance and Sexual Activity Alcohol use: No Drug use: No Sexual activity: Yes Partners: Male control/protection: Condom Other Topics Concern Caffeine Use Yes Social History Narrative Not on file Social Drivers of Health Financial Resource Strain: Low Risk (03/18/2023) Overall Financial Resource Strain (CARDIA) Difficulty of Paying Living Expenses: Not hard at all Food Insecurity: No Food Insecurity (07/15/2024) Hunger Screening Food Insecurity - Worry: Never True Food Insecurity - Inability: Never True Transportation Needs: No Transportation Needs (03/18/2023) PRAPARE - Transportation Lack of Transportation (Medical): No Lack of Transportation (Non-Medical): No Physical Activity: Not on file Stress: No Stress Concern Present (09/18/2022) [employer] - Occupational Stress Questionnaire Feeling of Stress : Not at all Social Connections: Moderately Isolated (09/18/2022) Social Connection and Isolation Panel [NHANES] Frequency of Communication with Friends and Family: More than three times a week Frequency of Social Gatherings with Friends and Family: More than three times a week Attends Sabianist Services: Never Active Member of Clubs or Organizations: No Attends Club or Organization Meetings: Never Marital Status: Living with partner Interpersonal Safety: Not on file Housing Instability: Low Risk (03/18/2023) Housing Instability Housing Instability: No Review of Systems Review of Systems Constitutional: Negative. HENT: Negative. Eyes: Negative. Cardiovascular: Negative. Respiratory: Negative. Endocrine: Negative. Hematologic/Lymphatic: Bruises/bleeds easily. Skin: Negative. Musculoskeletal: Negative. Gastrointestinal: Negative. Genitourinary: Negative. Neurological: Negative. Psychiatric/Behavioral: Negative. Allergic/Immunologic: Negative. Vascular: Negative. CARDIOVASCULAR: Please review HPI. Physical Examination General appearance: Alert, oriented and cooperative. In no acute distress. Skin: Warm and dry to touch. Head: Normocephalic, without obvious abnormality, atraumatic. Ears, Nose, Mouth, Throat: Throat clear without erythema or exudate. Dentition intact. Eyes: Conjunctivae unremarkable, EOM intact. Neck: No JVD, No carotid bruit. Neck supple, trachea midline. Respiratory: Clear to auscultation bilaterally, no use of accessory muscles. Cardiovascular: RRR with normal S1 and S2 with no murmurs. Gastrointestinal: Soft, non-tender. Bowel sounds normal. Musculoskeletal: No peripheral edema. Neurologic: Oriented to time, person and place, affect appropriate. No focal/major motor defects noted. Psychiatric: Appropriate mood, memory and judgement. VITAL SIGNS: BP 98/72 Pulse 106 Ht 160 cm (5' 2.99 ) Wt 112.9 kg (249 lb) LMP (LMP Unknown) SpO2 99% BMI 44.12 kg/m No orders of the defined types were placed in this encounter. There are no discontinued medications. IMPRESSIONS/PLAN There are no diagnoses linked to this encounter. Symptoms consistent with pots syndrome Hydration Support hose Low-dose midodrine We will see how she does clinically and go from there TODAYS ORDERS No orders of the defined types were placed in this encounter. FOLLOW UP No follow-ups on file. PCP: NO PCP, NO PCP Referring Physician: No referring provider defined for this encounter. documented in this encounter [facility] 07-14-2024 Miscellaneous Notes [facility] MESSAGE REMINDER SENT TO PT TO REMIND OF PPC APPT. documented in this encounter [facility] 07-14-2024 Telephone encounter Note [facility] MESSAGE REMINDER SENT TO PT TO REMIND OF PPC APPT. [facility] 07-02-2024 Hospital Discharg e instructions Lukas Gautam MD - 07/02/2024 7:15 PM EDT Repeat hcg level on Thursday. Tylenol and or Motrin as needed for any pain. Drink plenty of fluids and rest at home. Follow-up with your OB call Thursday to schedule earliest available appointment. Please seek medical attention immediately should you begin bleeding greater than 1 pad per hour passing large clots or any other acute concerns documented in this encounter [facility] 06-29-2024 History of Presen t illness Narrative Patient here for diarrhea x4 days Patient states she took test and came back positive States diarrhea started Thursday afternoon Patient states she has POTS syndrome States ER said they couldn't do anything for her Went to [facility] Thursday and that's when it showed she was Patient doesn't know last period since she has PCOS UPT ran in clinic and was positive Subjective Patient ID: Jolene Morales is a 23 y.o. female. Jolene presents today with concerns for diarrhea that has been going on for 4 days. She found out she is yesterday. Seen Thursday in [place] ER for POTS symptoms, Wanted to do IV hydration she left AMA and was having diarrhea. States she went back to there ER yesterday but to [place] because her diarrhea worsened. She states it worsens after she eats anything. Denies anyone sick in the house. Denies antibiotic use. States is watery. She received IV fluids She Found out that was was during that ER visit Hcg was 37 Lipase 17 ALT 26 AST 27 Per pt a bedside US was done and she was told she was 2 weeks. States she is having RUQ mostly on right side, reports is colicky. Is not having any vomiting. Very slight nausea when eating but just worsening diarrhea, RUQ pain. LMP unknown d/t PCOS Was just dx with POTS has f/u with cardiology in June The following portions of the patient's history were reviewed and updated as appropriate: allergies, current medications, past family history, past medical history, past social history, past surgical history, problem list, and medication reconciliation was completed including current medication and post discharge medication. Review of Systems Constitutional: Negative. HENT: Negative. Eyes: Negative. Respiratory: Negative. Gastrointestinal: Positive for abdominal distention and diarrhea. Endocrine: Negative. Genitourinary: Negative. Musculoskeletal: Negative. Skin: Negative. Allergic/Immunologic: Negative. Neurological: Negative. Hematological: Negative. Psychiatric/Behavioral: Negative. Objective Physical Exam Constitutional: Appearance: Normal appearance. Abdominal: Tenderness: There is abdominal tenderness. Comments: Mild tenderness in RUQ under liver with deep palpation Over liver WNL No masses Neurological: Mental Status: She is alert. Psychiatric: Mood and Affect: Mood normal. Behavior: Behavior normal. Thought Content: Thought content normal. Judgment: Judgment normal. Assessment/Plan Jolene was seen today for ob problem . Diagnoses and all orders for this visit: Absence of menstruation - POCT , urine Nausea and vomiting in - ondansetron ODT (ZOFRAN ODT) 4 mg disintegrating tablet; Dissolve 1 tablet (4 mg total) on tongue every 8 (eight) hours as needed for nausea. Positive test - vit no.874-[id number]-[id number] acid ( VITAMIN) 27 mg iron- 800 mcg tablet; Take 1 tablet by mouth in the morning. - hCG, quantitative, ; Future repeat tomorrow. Discussed based on levels very early around 4 weeks. F/u Confirmation of in 2 weeks with US. Low suspicion for ectopic given location of pain and symptoms. Reviewed s/s and when to go to ER regarding Right upper quadrant pain - Ultrasound abdomen limited; Future - Amylase; Future, rest of labs WNL in care everywhere from yesterday 06/28 - discussed concern for possible Gallbladder. Will obtained outpatient US. Consider GI referral based on results and symptoms. Pt to go to ER for worsening symptoms Diarrhea, unspecified type - discussed risks/benefits of Zofran use in early . Given her recurrent diarrhea benefit outweighs risk may help as a side effect is constipation. Pt to take prior to eating to see if will help AURELIA Rangel 06/29/24 [id number] documented in this encounter [facility] 06-28-2024 Hospital Discharg Donaldo Barraza II, PA-C - 06/28/2024 6:27 PM EDT Return to the emerged apartment if you have increased pain fever vomiting fluids or any worsening symptoms. You have a very early at this point you should return to the hospital in 2 to 3 days to have your hCG levels redrawn to make sure that the is progressing. You may need a repeat ultrasound should pain continue as the develops You will receive a survey in the next couple days regarding your experience in the ED. We are constantly striving to improve our care and welcome your feedback. Thank you very much for your time. The emergency department evaluation is not a complete evaluation, you're always required to followup with another doctor within the next few days to assess how your symptoms are progressing and to ensure that there is no indication for further testing or returning to the hospital. Even with treatment sometimes your condition worsens and you will need to return to the hospital. If you are having pain and it is getting worse you should return to the hospital. If you have any new symptoms that were not addressed at your original visit you should return to the hospital. If you're having difficulty breathing but it is getting worse you should return to the hospital. If you're vomiting and cannot take the medicines that were prescribed you should return to the hospital. If you're having persistent fevers you should return to the hospital. If you have any question of whether or not your symptoms are serious enough or for any other urgent concerns- always return to the hospital for repeat evaluation. The following attachments cannot be sent through Care Everywhere.Diarrhea (Angolan): Abdominal Pain (Angolan)documented in this encounter [facility] 06-15-2024 History of Presen t illness Narrative left for patient to determine if she needs the rabies vaccines ordered. According to the notes she refused it. documented in this encounter [facility] 03-18-2024 Miscellaneous Notes Called patient to remind them to bring their most current copy of their medication list with them to their appt. Patient verbalizes understanding. documented in this encounter [facility] 03-18-2024 Telephone encounter Note Called patient to remind them to bring their most current copy of their medication list with them to their appt. Patient verbalizes understanding. [facility] 12-29-2023 History of Presen t illness Narrative Jolene Burrows Date of visit: 12/29/2023 Date of : 2000 Age: 23 y.o. Patient Active Problem List Diagnosis Depression Class 1 obesity due to excess calories in adult S/P tonsillectomy Anemia during in third trimester Recurrent syncope Heart palpitations Family history of heart disease Shortness of breath Migraines Inappropriate sinus tachycardia (CMS-HCC) Carrier of spinal muscular atrophy Lactating mother No Known Allergies Current Outpatient Medications Medication Sig Dispense Refill ARIPiprazole (ABILIFY) 2 mg tablet Take 1 tablet (2 mg total) by mouth in the morning. sertraline (ZOLOFT) 50 mg tablet Take 1 tablet (50 mg total) by mouth in the morning. 30 tablet 2 No current facility-administered medications for this visit. Chief Complaint Patient presents with Follow-up 4MO F/U EM History of Present Illness This is a 23-year-old female with past medical history of inappropriate tachycardia and pause who is here for follow-up. She continued to have significant symptoms including syncope. She had a Holter monitor in place during which time she experienced all of her symptoms including syncope, and it was not significant for anything except sinus tachycardia. She had a trial of beta-january, however experienced more symptoms Specifically dizziness and side effects. Past Medical History: Diagnosis Date Asthma Depression Inappropriate sinus tachycardia (CMS-HCC) Polycystic ovary syndrome Polyhydramnios affecting in third trimester No data recorded No data recorded No data recorded Past Surgical History: Procedure Laterality Date TONSILLECTOMY Family History Problem Relation Age of Onset Mental illness Mother depression, anxiety Asthma Mother Mental illness Father Other Father breathing problems since COVID Depression Sister No Known Problems Brother Mental illness Maternal Grandmother Heart disease Maternal Grandmother age 44 Diabetes Maternal Grandmother Breast cancer Maternal Grandmother after age 50 Diabetes Maternal Grandfather Dementia Maternal Grandfather Irritable bowel syndrome Paternal Grandmother Diabetes Maternal Uncle Blood Clots Neg Hx Clotting disorder Neg Hx Uterine cancer Neg Hx Colon cancer Neg Hx Pancreatic cancer Neg Hx Ovarian cancer Neg Hx Social History Socioeconomic History Marital status: Single Spouse name: Not on file Number of children: Not on file Years of education: Not on file Highest education level: Not on file Occupational History Not on file Tobacco Use Smoking status: Never Smokeless tobacco: Never Vaping Use Vaping status: Former Devices: Disposable Substance and Sexual Activity Alcohol use: No Drug use: No Sexual activity: Yes Partners: Male control/protection: Condom Other Topics Concern Caffeine Use Yes Social History Narrative Not on file Social Drivers of Health Financial Resource Strain: Low Risk (03/18/2023) Overall Financial Resource Strain (CARDIA) Difficulty of Paying Living Expenses: Not hard at all Food Insecurity: No Food Insecurity (12/29/2023) Hunger Screening Food Insecurity - Worry: Never True Food Insecurity - Inability: Never True Transportation Needs: No Transportation Needs (03/18/2023) PRAPARE - Transportation Lack of Transportation (Medical): No Lack of Transportation (Non-Medical): No Physical Activity: Not on file Stress: No Stress Concern Present (09/18/2022) [employer] - Occupational Stress Questionnaire Feeling of Stress : Not at all Social Connections: Moderately Isolated (09/18/2022) Social Connection and Isolation Panel [NHANES] Frequency of Communication with Friends and Family: More than three times a week Frequency of Social Gatherings with Friends and Family: More than three times a week Attends Sabianist Services: Never Active Member of Clubs or Organizations: No Attends Club or Organization Meetings: Never Marital Status: Living with partner Interpersonal Safety: Not on file Housing Instability: Low Risk (03/18/2023) Housing Instability Housing Instability: No Review of Systems Review of Systems Constitutional: Negative. HENT: Negative. Eyes: Negative. Cardiovascular: Positive for chest pain. Respiratory: Negative. Endocrine: Negative. Hematologic/Lymphatic: Negative. Skin: Negative. Musculoskeletal: Negative. Gastrointestinal: Negative. Genitourinary: Negative. Neurological: Negative. Psychiatric/Behavioral: Negative. Allergic/Immunologic: Negative. Vascular: Negative. CARDIOVASCULAR: Please review HPI. Physical Examination General appearance: Alert, oriented and cooperative. In no acute distress. Skin: Warm and dry to touch. Head: Normocephalic, without obvious abnormality, atraumatic. Ears, Nose, Mouth, Throat: Throat clear without erythema or exudate. Dentition intact. Eyes: Conjunctivae unremarkable, EOM intact. Neck: No JVD, No carotid bruit. Neck supple, trachea midline. Respiratory: Clear to auscultation bilaterally, no use of accessory muscles. Cardiovascular: RRR with normal S1 and S2 with no murmurs. Gastrointestinal: Soft, non-tender. Bowel sounds normal. Musculoskeletal: No peripheral edema. Neurologic: Oriented to time, person and place, affect appropriate. No focal/major motor defects noted. Psychiatric: Appropriate mood, memory and judgement. VITAL SIGNS: BP 132/80 (BP Site: Left Arm, BP Postition: Sitting) Pulse (!) 122 Resp (!) 96 Ht 162.6 cm (5' 4.02 ) Wt 111.6 kg (246 lb) SpO2 96% BMI 42.20 kg/m No orders of the defined types were placed in this encounter. There are no discontinued medications. IMPRESSIONS/PLAN There are no diagnoses linked to this encounter. This is a 23-year-old female with past medical history of POTS and inappropriate sinus tachycardia who is here for follow-up. She has activity limiting symptoms with severe symptoms including dizziness, shortness of breath, and syncope. She has had a full workup that has been unremarkable. ECG today shows sinus rhythm and otherwise is unremarkable. She has had symptoms during her Holter monitor that was significant for sinus tachycardia. We have tried beta-january, without any improvement in symptoms. We discussed a trial of ivabradine as this may be her best option. Discussed lifestyle and dietary modifications in the use of compression stockings. Referral to DR Villegas. Referral to PT. TODAYS ORDERS No orders of the defined types were placed in this encounter. FOLLOW UP No follow-ups on file. PCP: NO PCP, NO PCP Referring Physician: No referring provider defined for this encounter. documented in this encounter [facility] 12-28-2023 Miscellaneous Notes Called patient to remind them to bring their most current copy of their medication list with them to their appt. Patient verbalizes understanding. documented in this encounter [facility] 12-28-2023 Telephone encounter Note Called patient to remind them to bring their most current copy of their medication list with them to their appt. Patient verbalizes understanding. [facility] 11-30-2023 Miscellaneous Notes P/c from pt asking for an intermittent work excuse letter when she has syncopal, pre-syncopal episodes and dizzy spells. Pt states her job is requiring a letter d/t her missing work when she has worsening symptoms. Pt states she has had syncopal episodes since her last visit 08/28/23 and has recently stopped TOPROL 25 mg daily around 11/01/23 d/t the medication making her symptoms worse. Pt has not followed up at the ER since seeing [facility] 08/28/23. Vending Mechanic advises call 911 [address] her to ER with episodes. PT reports staying well hydrated. Pt has a f/u scheduled 12/29/23 and would like a message sent to [facility] to review and advise. You can provided to her but only evaluated for this month so that we can ensure that we follow-up with her and work with her symptoms. Noted. Toprol also flagged for removal - pt stopped on own. Letter created and sent to pt via [employer]. Addended by: KLARISSA SANDY on: 12/02/2023 08:21 AM Modules accepted: [facility] Note Addended by: KLARISSA SANDY on: 12/02/2023 08:21 AM Modules accepted: Orders [employer] Phone: 11-30-2023 Telephone encounter Note P/c from pt asking for an intermittent work excuse letter when she has syncopal, pre-syncopal episodes and dizzy spells. Pt states her job is requiring a letter d/t her missing work when she has worsening symptoms. Pt states she has had syncopal episodes since her last visit 08/28/23 and has recently stopped TOPROL 25 mg daily around 11/01/23 d/t the medication making her symptoms worse. Pt has not followed up at the ER since seeing [facility] 08/28/23. Vending Mechanic advises call [address] her to ER with episodes. PT reports staying well hydrated. Pt has a f/u scheduled 12/29/23 and would like a message sent to [facility] to review and advise. [facility] 11-30-2023 Telephone encounter Note You can provided to her but only evaluated for this month so that we can ensure that we follow-up with her and work with her symptoms. [facility] 11-30-2023 Telephone encounter Note Noted. Toprol also flagged for removal - pt stopped on own. Letter created and sent to pt via [employer]. [facility] 08-28-2023 History of Presen t illness Narrative Jolene Burrows Date of visit: 08/28/2023 Date of : 2000 Age: 22 y.o. Patient Active Problem List Diagnosis Depression Class 1 obesity due to excess calories in adult S/P tonsillectomy Anemia during in third trimester Recurrent syncope Heart palpitations Family history of heart disease Shortness of breath Migraines Inappropriate sinus tachycardia (CMS-HCC) Carrier of spinal muscular atrophy Lactating mother No Known Allergies Current Outpatient Medications Medication Sig Dispense Refill ARIPiprazole (ABILIFY) 2 mg tablet Take 1 tablet (2 mg total) by mouth in the morning. sertraline (ZOLOFT) 50 mg tablet Take 1 tablet (50 mg total) by mouth in the morning. 30 tablet 2 acetaminophen (TYLENOL EXTRA STRENGTH) 500 mg tablet Take 2 tablets (1,000 mg total) by mouth every 6 (six) hours as needed for pain. (Patient not taking: Reported on 08/28/2023) 30 tablet 0 docusate sodium (COLACE) 100 mg capsule Take 1 capsule (100 mg total) by mouth in the morning and 1 capsule (100 mg total) before bedtime. (Patient not taking: Reported on 05/08/2023) 28 capsule 0 drospirenone, contraceptive, (SLYND) 4 mg (28) tablet Take 4 mg by mouth in the morning. (Patient not taking: Reported on 08/28/2023) 28 tablet 10 ferrous sulfate 325 (65 FE) mg tablet Take 1 tablet (325 mg total) by mouth in the morning. (Patient not taking: Reported on 05/08/2023) 30 tablet 3 ibuprofen (MOTRIN) 600 mg tablet Take 1 tablet (600 mg total) by mouth every 6 (six) hours as needed for pain. (Patient not taking: Reported on 08/28/2023) 30 tablet 0 magnesium oxide (MAGOX) 400 mg tablet Take 1 tablet (400 mg total) by mouth in the morning. (Patient not taking: Reported on 05/08/2023) 30 tablet 2 vit [id number] 18-1-350 mg capsule Take 1 tablet by mouth in the morning. Indications: , prevention of neural tube defect when . (Patient not taking: Reported on 05/08/2023) 90 capsule 4 No current facility-administered medications for this visit. Chief Complaint Patient presents with Follow-up Syncope Shortness of Breath ER [facility] History of Present Illness This is a 22-year-old female with history of inappropriate sinus tachycardia here for follow-up. She states that she had a syncopal episode recently. She had palpitations with associated dizziness and shortness of breath, and lost consciousness thereafter. She did not have any chest pain. She has no history of orthopnea or PND. She states that this is very similar to her prior syncopal events. She has had a prior transthoracic echocardiogram that did not show any significant structural heart disease. ECG was reviewed shows sinus rhythm and otherwise unremarkable. Past Medical History: Diagnosis Date Asthma Depression Inappropriate sinus tachycardia (CMS-HCC) Polycystic ovary syndrome Polyhydramnios affecting in third trimester No data recorded No data recorded No data recorded Past Surgical History: Procedure Laterality Date TONSILLECTOMY Family History Problem Relation Age of Onset Mental illness Mother depression, anxiety Asthma Mother Mental illness Father Other Father breathing problems since COVID Depression Sister No Known Problems Brother Mental illness Maternal Grandmother Heart disease Maternal Grandmother age 44 Diabetes Maternal Grandmother Breast cancer Maternal Grandmother after age 50 Diabetes Maternal Grandfather Dementia Maternal Grandfather Irritable bowel syndrome Paternal Grandmother Diabetes Maternal Uncle Blood Clots Neg Hx Clotting disorder Neg Hx Uterine cancer Neg Hx Colon cancer Neg Hx Pancreatic cancer Neg Hx Ovarian cancer Neg Hx Social History Socioeconomic History Marital status: Single Spouse name: Not on file Number of children: Not on file Years of education: Not on file Highest education level: Not on file Occupational History Not on file Tobacco Use Smoking status: Never Smokeless tobacco: Never Vaping Use Vaping status: Former Devices: Disposable Substance and Sexual Activity Alcohol use: No Drug use: No Sexual activity: Yes Partners: Male control/protection: Condom Other Topics Concern Caffeine Use Yes Social History Narrative Not on file Social Determinants of Health Financial Resource Strain: Low Risk (03/18/2023) Overall Financial Resource Strain (CARDIA) Difficulty of Paying Living Expenses: Not hard at all Food Insecurity: No Food Insecurity (08/28/2023) Hunger Screening Food Insecurity - Worry: Never True Food Insecurity - Inability: Never True Transportation Needs: No Transportation Needs (03/18/2023) PRAPARE - Transportation Lack of Transportation (Medical): No Lack of Transportation (Non-Medical): No Physical Activity: Not on file Stress: No Stress Concern Present (09/18/2022) [employer] - Occupational Stress Questionnaire Feeling of Stress : Not at all Social Connections: Moderately Isolated (09/18/2022) Social Connection and Isolation Panel [NHANES] Frequency of Communication with Friends and Family: More than three times a week Frequency of Social Gatherings with Friends and Family: More than three times a week Attends Sabianist Services: Never Active Member of Clubs or Organizations: No Attends Club or Organization Meetings: Never Marital Status: Living with partner Interpersonal Safety: Not on file Housing Instability: Low Risk (03/18/2023) Housing Instability Housing Instability: No Review of Systems Review of Systems Constitutional: Negative for chills, fever and malaise/fatigue. HENT: Negative for hearing loss, hoarse voice and nosebleeds. Eyes: Negative for blurred vision, double vision and redness. Respiratory: Positive for shortness of breath. Negative for sleep disturbances due to breathing. Endocrine: Negative for cold intolerance and heat intolerance. Hematologic/Lymphatic: Negative for bleeding problem. Does not bruise/bleed easily. Skin: Negative for color change, flushing, itching and nail changes. Musculoskeletal: Negative for falls, joint pain, joint swelling and myalgias. Gastrointestinal: Negative for heartburn, hematochezia and melena. Genitourinary: Negative for dysuria, frequency and hematuria. Neurological: Positive for dizziness, light-headedness and weakness. Negative for focal weakness and loss of balance. Psychiatric/Behavioral: Negative for altered mental status and memory loss. CARDIOVASCULAR: Please review HPI. Physical Examination General appearance: Alert, oriented and cooperative. In no acute distress. Skin: Warm and dry to touch. Head: Normocephalic, without obvious abnormality, atraumatic. Ears, Nose, Mouth, Throat: Throat clear without erythema or exudate. Dentition intact. Eyes: Conjunctivae unremarkable, EOM intact. Neck: No JVD, No carotid bruit. Neck supple, trachea midline. Respiratory: Clear to auscultation bilaterally, no use of accessory muscles. Cardiovascular: RRR with normal S1 and S2 with no murmurs. Gastrointestinal: Soft, non-tender. Bowel sounds normal. Musculoskeletal: No peripheral edema. Neurologic: Oriented to time, person and place, affect appropriate. No focal/major motor defects noted. Psychiatric: Appropriate mood, memory and judgement. VITAL SIGNS: BP 116/68 Pulse 108 Ht 162.6 cm (5' 4 ) Wt 103.4 kg (228 lb) BMI 39.14 kg/m Orders Placed or Reconciled This Encounter Medications ARIPiprazole (ABILIFY) 2 mg tablet Sig: Take 1 tablet (2 mg total) by mouth in the morning. There are no discontinued medications. IMPRESSIONS/PLAN This is a 22-year-old female with past medical history of inappropriate sinus tachycardia who is here after a syncopal episode She has had multiple syncopal episodes with prodromal symptoms. She has had a prior transthoracic echocardiogram that did not show any significant structural heart disease. ECG shows sinus rhythm and is otherwise unremarkable. We discussed lifestyle and dietary modifications including use of compression stockings and staying well hydrated. We will start her on very low-dose beta-january in the meantime. We will also arrange for a 2 week event monitor. We will arrange for close follow follow-up. TODAYS ORDERS No orders of the defined types were placed in this encounter. FOLLOW UP No follow-ups on file. PCP: NO PCP, NO PCP Referring Physician: No referring provider defined for this encounter. documented in this encounter [facility] 08-27-2023 Miscellaneous Notes Left message for patient to remind them to bring their most current medication list with them to their appointment. [facility] [facility] Telephone encounter Note Left message for patient to remind them to bring their most current medication list with them to their appointment. [facility] 08-23-2023 Hospital Discharg e instructions Taylor Chapin PA-C - 08/23/2023 12:38 PM EDT Increase your fluid intake, hydration, sodium intake, and wear your compression stockings. library monitor is in place for 7 days and follow-up will be with cardiology. The following attachments cannot be sent through Care Everywhere.Fainting (Angolan)Orthostatic Hypotension (Angolan)POTS (Postural Orthostatic Tachycardia Syndrome): General Info (Angolan)documented in this encounter [facility] 06-12-2023 History of Presen t illness Narrative Pt here for BC maintenance Currently on OCP, is consistent with taking on time Subjective Patient ID: Jolene Burrows is a 22 y.o. female. Jolene presents today initially for annual. Switched to med check visit. She is taking slynd she likes this method, has 10 refills. She stopped taking her zoloft. She states her mood feels stable. She has good family support. 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 FOB is still looking for work. He lost his job after his sledding accident (that occurred a week before baby was born). EPDS 1 She had a physical for a new job yesterday states they told her she had leuks and RBCs. She denies any UTI s/s Had intercourse a few days ago .Patient's last menstrual period was 05/25/2022 (approximate). Denies vaginal odor or irritation. Has some discharge pt states is WNL The following portions of the patient's history were reviewed and updated as appropriate: allergies, current medications, past family history, past medical history, past social history, past surgical history, problem list, and medication reconciliation was completed including current medication and post discharge medication. Review of Systems Constitutional: Negative. HENT: Negative. Eyes: Negative. Respiratory: Negative. Cardiovascular: Negative. Gastrointestinal: Negative. Endocrine: Negative. Genitourinary: Positive for vaginal discharge. Musculoskeletal: Negative. Skin: Negative. Allergic/Immunologic: Negative. Neurological: Negative. Hematological: Negative. Psychiatric/Behavioral: Negative. Objective Physical Exam Constitutional: Appearance: Normal appearance. Pulmonary: Effort: Pulmonary effort is normal. Neurological: Mental Status: She is alert. Psychiatric: Mood and Affect: Mood normal. Behavior: Behavior normal. Thought Content: Thought content normal. Judgment: Judgment normal. Assessment/Plan Jolene was seen today for contraception. Diagnoses and all orders for this visit: Benign essential microscopic hematuria - Urine culture; Future History of depression - Stable off Zoloft. Warning signs reviewed RTC 11/23 for annual with pap as pt will be 23 at that time AURELIA Rangel 06/12/23 1335 documented in this encounter [facility] 05-08-2023 History of Presen t illness Narrative SOCIAL WORK NOTE: ON-GOING Consult: SW consult for a 22 y/o PP pt w/ PPD needs SW met with pt at her appointment and pt states she is feeling ok. Pt reports they have went through a lot in the last 30-45 days and it became over whelming the other day and she had a negative thought with no plan. She denies HI/SI. She knows that her son needs her and she wouldn't do anything to take herself away from him. Pt's fiance' had a bad sledding accident and wasn't able to work for a week before she gave , he went back to work a day after she came home, and a few weeks after the his g-pa passed. Pt has family that has stepped up to help, but now her mom is sick and can't help. We discussed coping skills, her need to go to the ER if the thoughts come back and become over whelming, and to lean on her extended support friends when she needs to. Pt plans on asking the in-laws to help this weekend. SW will continue to monitor pt progress. Referrals: N/A Communication / Follow up: SW will plan to remain available if needed - ROSEY Barrow 05/08/23 4:46 PM documented in this encounter [facility] 05-08-2023 History of Presen t illness Narrative Pt here for 5WKPP Visit States baby and her are doing well Pt is Breast and formula feeding EPDS= 8, one to last question Control plans: planning OCP Jolene Burrows is a 22 y.o. at 4 weeks . I have fully reviewed the and intrapartum course: complications: 1. Poly 2. Elevated BMI 3. 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 Elevated 1hr, Nl 3hr 6. Hx of SOB and heart pael 7. Syncope 8 Depression- 9. Migraines The delivery was at 39w1d gestational weeks. Outcome: spontaneous vaginal delivery. Anesthesia: epidural. course has been hard on her as she just recently lost her fiance's grandfather. Bleeding: no bleeding. Has not had period yet. States 2 weeks PP she had heavy bleeding with clots but did not call or go to hospital. Bleeding has stopped since then. Bowel function is normal. Bladder function is normal. Breast concerns: none Pain: 0/10 Patient is sexually active. Has used condoms since delivery. Contraception method is POP. States she was on pills before and would like to start again. Explained how to take, patient voices understanding. EPDS score = 8. On zoloft states dose is good. No thoughts of SI/HI. The following portions of the patient's history were reviewed and updated as appropriate: allergies, current medications, past family history, past medical history, past social history, past surgical history, problem list and medication reconciliation was completed including current medication and post discharge medication. BABY Baby is a male. Baby is feeding by both breast and bottle - Enfamil Nutramigen. Patient Liaison: Nelda carter health care manager plan: family Review of Systems Constitutional: negative GI: negative : negative Objective: BP 128/70 Ht 162.6 cm (5' 4.02 ) Wt 103.5 kg (228 lb 1.6 oz) LMP 06/20/2022 Yes BMI 39.13 kg/m General: alert, appears stated age, and cooperative Abdomen: benign non-tender. Vulva: not evaluated Vagina: not evaluated Assessment: 4 weeks exam. Plan: 1. Contraception: POP , Slynd rx. UPT negative. 2. Discussed safe spacing for . 3. Discussed weight loss and exercise 4. SW in to see patient 5. Follow up in: 1 month for annual, control maintenance, mood check in. AURELIA Powell 05/08/23 1713 documented in this encounter [facility] 04-14-2023 Miscellaneous Notes This note was copied from a baby's chart. Met with mom at 's bedside. States that she continues to pump for baby, getting about 30-40mls each time. She has been latching infant to breast more often and he has been able to transfer good amounts of milk. Given warmline number and encouraged to make an outpatient appointment for continued support at home. Given NICU office number for any questions or concerns related to pumping or supply. No further questions, encouraged to reach out for any further assistance. documented in this encounter [facility] 04-14-2023 Obstetrics Note This note was copied from a baby's chart. Met with mom at 's bedside. States that she continues to pump for baby, getting about 30-40mls each time. She has been latching to breast more often and he has been able to transfer good amounts of milk. Given warmline number and encouraged to make an outpatient appointment for continued support at home. Given NICU office number for any questions or concerns related to pumping or supply. No further questions, encouraged to reach out for any further assistance. [facility] Miscellaneous Notes This note was copied from a baby's chart. Met with mother at infants bedside. States pumping is going well and supply is stable. Mother has been putting to breast and infant doing well. Test weight preformed. Mother pumped and hour before breast attempt. Recommend to put to breast then pump. Starting weight was 3508 second weight was 3532 in 9 minutes. LC believes infant transferred more. Issues with weighing, had to reset scale after feed. Recommend test weight later. Plan: Offer breast each feed when infant cues for 5-10 minutes. Feeding Cues: -hands in mouth -smacking lips -rooting -eyes open If after 5-10 minutes has latched allow to continue until satisfied and follow IDF feeding protocol. Educated on how to supplement after infant goes to breast. Supplementation is based on infants direct time and quality score. Mothers milk supply must also be taken into account. This is per RN discretion. Algorithm Quality Score 1-5, Direct time 0-5 minutes: Gavage all Quality score 1-3, Direct time 6-10 minutes: Gavage 2/3 Quality Score 1-3, Direct time 11-15 minutes: Gavage 1/3 Quality Score 1-3, Direct time 16 minutes or more: No Gavage. If after 5-10 minutes infant does not latch but continues to show feeding cues, offer bottle. If after 5-10 minutes does not latch but does not show the feeding cues for a bottle, start gavage fed and allow to have continued access to breast. Questions answered, encouragement given. documented in this encounter [facility] 04-13-2023 Obstetrics Note This note was copied from a baby's chart. Met with mother at infants bedside. States pumping is going well and supply is stable. Mother has been putting to breast and infant doing well. Test weight preformed. Mother pumped and hour before breast attempt. Recommend to put to breast then pump. Starting weight was 3508 second weight was 3532 in 9 minutes. LC believes transferred more. Issues with weighing, had to reset scale after feed. Recommend test weight later. Plan: Offer breast each feed when infant cues for 5-10 minutes. Infant Feeding Cues: -hands in mouth -smacking lips -rooting -eyes open If after 5-10 minutes has latched allow to continue until satisfied and follow IDF feeding protocol. Educated on how to supplement after infant goes to breast. Supplementation is based on infants direct time and quality score. Mothers milk supply must also be taken into account. This is per RN discretion. Algorithm Quality Score 1-5, Direct time 0-5 minutes: Gavage all Quality score 1-3, Direct time 6-10 minutes: Gavage 2/3 Quality Score 1-3, Direct time 11-15 minutes: Gavage 1/3 Quality Score 1-3, Direct time 16 minutes or more: No Gavage. If after 5-10 minutes infant does not latch but continues to show feeding cues, offer bottle. If after 5-10 minutes infant does not latch but does not show the feeding cues for a bottle, start gavage fed and allow to have continued access to breast. Questions answered, encouragement given. [facility] 04-10-2023 Miscellaneous Notes This note was copied from a baby's chart. Met with mom at infant's bedside. States that pumping is going well, she continues to pump every 3-4 hours, getting about 40-60mls each time and denies pain or discomfort. Infant has taken a greater interest in and has been able to latch with active sucking and audible swallows for about 20-25 minutes. Supplements with a bottle afterwards. Suggested to try a weighted feed in the next couple of days as mom's supply builds and she becomes more comfortable with to assess how infant is transferring at breast. No further needs at this time, encouraged to reach out for any assistance. Signs of a good feeding Hearing swallowing at least every third suck once the milk comes-in. Seeing milk in the baby s mouth Consistent sucking with only brief pauses The breasts are softer after feedings Feeling strong, deep, pulling , sucking, no sharp pain Leaking from the other breast or feeling of a let-down reflex or noticing a change in the baby s sucking rhythm from faster to slower Your baby latches-on easily with minimal attempts and stays latched-on. documented in this encounter [facility] 04-10-2023 Obstetrics Note This note was copied from a baby's chart. Met with mom at infant's bedside. States that pumping is going well, she continues to pump every 3-4 hours, getting about 40-60mls each time and denies pain or discomfort. has taken a greater interest in and has been able to latch with active sucking and audible swallows for about 20-25 minutes. Supplements with a bottle afterwards. Suggested to try a weighted feed in the next couple of days as mom's supply builds and she becomes more comfortable with to assess how is transferring at breast. No further needs at this time, encouraged to reach out for any assistance. Signs of a good feeding Hearing swallowing at least every third suck once the milk comes-in. Seeing milk in the baby s mouth Consistent sucking with only brief pauses The breasts are softer after feedings Feeling strong, deep, pulling , sucking, no sharp pain Leaking from the other breast or feeling of a let-down reflex or noticing a change in the baby s sucking rhythm from faster to slower Your baby latches-on easily with minimal attempts and stays latched-on. [facility] 04-08-2023 Miscellaneous Notes This note was copied from a baby's chart. Met with mother at infants bedside. Reports supply is increasing. Pumping 40-60ml every 3 hours. Has been putting baby to breast and able to get him to latch at times. Latching better to left than right in football hold. Assisted with cross cradle position to right side. Baby opens mouth but no latch achieved. Crying and thrusting back from breast. Tried football hold to left and he did the same. Encouraged lots of skin to skin and continue to work on latching. Can use bottle as a teaser bottle. With teaser given him a few sucks from bottle, once he is sucking regularly and calm take away bottle and then try to latch him to breast. Encouraged to call out for LC for assistance and with any questions. Verbalized understanding. Support and encouragement given. documented in this encounter [facility] 04-08-2023 Obstetrics Note This note was copied from a baby's chart. Met with mother at infants bedside. Reports supply is increasing. Pumping 40-60ml every 3 hours. Has been putting baby to breast and able to get him to latch at times. Latching better to left than right in football hold. Assisted with cross cradle position to right side. Baby opens mouth but no latch achieved. Crying and thrusting back from breast. Tried football hold to left and he did the same. Encouraged lots of skin to skin and continue to work on latching. Can use bottle as a teaser bottle. With teaser given him a few sucks from bottle, once he is sucking regularly and calm take away bottle and then try to latch him to breast. Encouraged to call out for LC for assistance and with any questions. Verbalized understanding. Support and encouragement given. [facility] 04-08-2023 History of Presen t illness Narrative This call is considered a telephone visit, which is to help assess your current healthcare needs and to determine the appropriate care you may require. This visit may be a billable service through your insurance company. Do you consent to moving forward with this telephone visit? yes Subjective: Jolene Burrows is a 22 y.o. female who presents for a visit. She is 1 week following a spontaneous vaginal delivery. Reports she is staying at [facility] and visiting baby in NICU, she states baby is doing better. The patient feels well. The patient denies emotional concerns. Pain is well controlled without medications. Pt had to be called & reminded of video visit & then of user difficulties, pt agreeable. Pt admits to complications with heart palpitations with every shower she takes, admits she has not called whitewater rafting guide yet but will today to schedule appointment. States hard to describe but she feels weird denies loss of consciousness/fainting. States her fiancee is present so she is not alone if needs help & he has helped her a couple of times. States well hydrated & way more than when I was admits to eating snacks & meals all day. Reports taking her antidepressant in evening and it does help her calm down and relax and not worry so much . I have fully reviewed the and intrapartum course. The delivery was at 39w1d gestational weeks. Outcome: spontaneous vaginal delivery. Anesthesia: epidural. course has been complicated by in NICU. Bleeding thin lochia. Bowel function is normal. Bladder function is normal. Patient is not sexually active. Contraception method is POP . EPDS score = 8 BABY Baby is a male. Baby is feeding by both breast and bottle - The following portions of the patient's history were reviewed and updated as appropriate: allergies, current medications, past family history, past medical history, past social history, past surgical history, problem list, and medication reconciliation was completed including current medication and post discharge medication. Review of Systems Pertinent items are noted in HPI. SOB-admits to still having intermittent episodes Ht Palpitations-intermittently, mostly noted when showering Migraines-denies concern Objective: N/A Video visit Assessment: 1 week exam mood check. Plan: 1. Call cardiology today to schedule appointment-pt denies transportation concerns. 2. Reviewed when to go to ED if needed 3. Continue routine PP precautions 4. Continue Zoloft nightly 50 mg po 5. Cooler water & shorter time in shower, increase hydration, make sure someone is in close proximity if feeling dizzy & ask for shower chair. Pt agreeable. RTN in 4 weeks for PP visit. AURELIA Smith 04/10/23 1531 documented in this encounter [facility] 04-07-2023 Miscellaneous Notes This note was copied from a baby's chart. Met with mother at 's bedside. States pumping is going well and her supply is increasing. No pain reported. States is latching well, hearing swallows at breast. Reports he has been dripping milk out of his mouth during feeds at breast and with the bottle. States this just started today and that he was sleepy after his picc placement. Demonstrated chin support as a tool to use if continues to lose volume at breast and bottle. Also encouraged to reach out for assistance when latching for a latch check so an LC can evaluate. Questions answered and support given. DEEP LATCH SUGGESTIONS: -position baby at level of the breast, use lots of pillows for support -position baby belly to belly , with ear in line with shoulder and hip -use one hand to support baby at the shoulders to help with head control and keep airway straight and open -point nipple toward nose/roof of baby's mouth -wait for baby to open wide, bring on chin-first for an asymmetrical latch : scoop as much of bottom breast tissue/areola into baby's mouth first, then bring baby up and over to complete a deep latch *if latch becomes uncomfortable or appears shallow, break seal with finger to take baby off, try to latch again documented in this encounter [facility] 04-07-2023 Obstetrics Note This note was copied from a baby's chart. Met with mother at infant's bedside. States pumping is going well and her supply is increasing. No pain reported. States infant is latching well, hearing swallows at breast. Reports he has been dripping milk out of his mouth during feeds at breast and with the bottle. States this just started today and that he was sleepy after his picc placement. Demonstrated chin support as a tool to use if infant continues to lose volume at breast and bottle. Also encouraged to reach out for assistance when latching for a latch check so an LC can evaluate. Questions answered and support given. DEEP LATCH SUGGESTIONS: -position baby at level of the breast, use lots of pillows for support -position baby belly to belly , with ear in line with shoulder and hip -use one hand to support baby at the shoulders to help with head control and keep airway straight and open -point nipple toward nose/roof of baby's mouth -wait for baby to open wide, bring on chin-first for an asymmetrical latch : scoop as much of bottom breast tissue/areola into baby's mouth first, then bring baby up and over to complete a deep latch *if latch becomes uncomfortable or appears shallow, break seal with finger to take baby off, try to latch again [facility] 04-06-2023 Miscellaneous Notes This note was copied from a baby's chart. Met with mother at infants bedside. Assisted mother in putting infant to breast. becomes frantic easily. Recommend to put to breast in a quiet, alert state if able. And Skin to skin is a great way to calm infant. Started in cross cradle and quickly moved to football hold. After severall minutes latched with audible swallows for 5-10 minutes. Infant then moved to other breast. Used teaser bottle to help latch. Teaser Bottle: Hold infant in comfortable position. Give infant 5-6 sucks from bottle using led feeding Remove bottle and offer breast Teaser bottles help calm infant and stimulate them for feeding time. Infant latched easily for 5-10 minutes. Recommend to supplement with rest of bottle because of large volumes has been in taking and mothers supply. Mother is getting 1-2oz every 3 hours at this time. Reassured that is appropriate. Encouraged pumping every 2-3 hours for 15-20 minutes at suction level that is comfortable. Mom will only produce the amount of breastmilk that her baby demands. It is true that hormones drive the production of very early breastmilk, called colostrum. However, in order to keep producing breastmilk, your baby needs to keep sucking from the breast. The overall level of milk production varies based on the babys amount of sucking and how much milk is actually removed. Plan: Offer breast each feed when infant cues for 5-10 minutes. Feeding Cues: -hands in mouth -smacking lips -rooting -eyes open If after 5-10 minutes has latched allow to continue until satisfied and follow IDF feeding protocol. Educated on how to supplement after goes to breast. Supplementation is based on infants direct time and quality score. Mothers milk supply must also be taken into account. This is per RN discretion. Algorithm Quality Score 1-5, Direct time 0-5 minutes: Gavage all Quality score 1-3, Direct time 6-10 minutes: Gavage 2/3 Quality Score 1-3, Direct time 11-15 minutes: Gavage 1/3 Quality Score 1-3, Direct time 16 minutes or more: No Gavage. If after 5-10 minutes does not latch but infant continues to show feeding cues, offer bottle. If after 5-10 minutes infant does not latch but does not show the feeding cues for a bottle, start gavage fed and allow to have continued access to breast. Questions answered, encouragement given. documented in this encounter [facility] 04-06-2023 Obstetrics Note This note was copied from a baby's chart. Met with mother at infants bedside. Assisted mother in putting to breast. Infant becomes frantic easily. Recommend to put to breast in a quiet, alert state if able. And Skin to skin is a great way to calm infant. Started in cross cradle and quickly moved to football hold. After severall minutes latched with audible swallows for 5-10 minutes. then moved to other breast. Used teaser bottle to help infant latch. Teaser Bottle: Hold in comfortable position. Give 5-6 sucks from bottle using infant led feeding Remove bottle and offer breast Teaser bottles help calm infant and stimulate them for feeding time. latched easily for 5-10 minutes. Recommend to supplement with rest of bottle because of large volumes infant has been in taking and mothers supply. Mother is getting 1-2oz every 3 hours at this time. Reassured that is appropriate. Encouraged pumping every 2-3 hours for 15-20 minutes at suction level that is comfortable. Mom will only produce the amount of breastmilk that her baby demands. It is true that hormones drive the production of very early breastmilk, called colostrum. However, in order to keep producing breastmilk, your baby needs to keep sucking from the breast. The overall level of milk production varies based on the babys amount of sucking and how much milk is actually removed. Plan: Offer breast each feed when infant cues for 5-10 minutes. Feeding Cues: -hands in mouth -smacking lips -rooting -eyes open If after 5-10 minutes infant has latched allow to continue until satisfied and follow IDF feeding protocol. Educated on how to supplement after goes to breast. Supplementation is based on infants direct time and quality score. Mothers milk supply must also be taken into account. This is per RN discretion. Algorithm Quality Score 1-5, Direct time 0-5 minutes: Gavage all Quality score 1-3, Direct time 6-10 minutes: Gavage 2/3 Quality Score 1-3, Direct time 11-15 minutes: Gavage 1/3 Quality Score 1-3, Direct time 16 minutes or more: No Gavage. If after 5-10 minutes infant does not latch but continues to show feeding cues, offer bottle. If after 5-10 minutes does not latch but does not show the feeding cues for a bottle, start gavage fed and allow to have continued access to breast. Questions answered, encouragement given. [facility] 04-03-2023 Nurse Note Patient discharged to home with all belongings in stable condition. Ambulated off unit with FOB, infant in NICU. [place] supplies and gift pack given. Verbalized understanding of discharge instructions again. Agreeable to follow up visit with OBGYN. Patient left via personal vehicle to home. Pt and FOB application accepted at [facility] 04-03-2023 Nurse Note Patient discharged to home with all belongings in stable condition. Ambulated off unit with FOB, infant in NICU. [place] supplies and infant gift pack given. Verbalized understanding of discharge instructions again. Agreeable to follow up visit with OBGYN. Patient left via personal vehicle to home. Pt and FOB application accepted at [facility] AVS printed, discussed, signed, and copy given to patient. Patient verbalizes understanding of discharge instructions. No further questions at this time. documented in this encounter [facility] 04-03-2023 Nurse Note AVS printed, discussed, signed, and copy given to patient. Patient verbalizes understanding of discharge instructions. No further questions at this time. [facility] 04-03-2023 Hospital Discharg e instructions Gloria Silverman RN - 04/03/2023 2:08 PM EST Discharge Instructions Vaginal Bleeding Vaginal drainage, lochia , will last 2-3 weeks after your baby was born Use the k[place] bottle filled with warm water each time you use the bathroom, pat dry. Continue this until your drainage stops. Always wipe from front to back after you urinate or have a bowel movement Change your sanitary pad every 2-4 hours Notify your doctor/CNM if you experience any of the following: Clots larger than a plum If you are saturating a k[place] pad greater than one pad an hour Any foul smelling vaginal drainage Abdominal Cramping Cramping gets stronger with each baby. You may try a heating pad Bathing/Showering Take a shower each day unless you were told not to To help with episiotomy discomfort you may sit in a clean tub of warm water Stitches in your perineum will dissolve over 6 weeks, for comfort you may: Use a sitz bath [place] bottle Dermoplast (use each time after kenya care) Tucks (use each time after kenya care) Tucks and Dermoplast spray may also help with hemorrhoid discomfort (use each time after ken[place] care) Sexual [place] No tampons, douching, or sexual intercourse until after you see your doctor You may need to use a water-soluble lubricant such as [place] Jelly for dryness Talk to your doctor/CNM regarding control and which method would be best for you Talk to your doctor/CNM regarding the use of a long acting, but reversible, control method It is recommended to space pregnancies apart by at least 18 months, this is for the safety of future outcomes Notify your doctor if you have: Any vaginal burning or itching Any burning or pain when urinating, or inability to urinate A temperature greater than 100.4 degrees Fahrenheit or severe chills Pain in calf or leg Nausea or vomiting, dizziness or fainting If you have not had a bowel movement in 5 days Diet: Drink 8-12 glasses of water each day Make sure you eat a balanced diet, especially high in fiber (whole grains, raw vegetables, etc.) If drink 8 oz. of liquid every time you nurse your baby Continue to take your vitamins as prescribed by your doctor Abdominal Incision / Tubal Ligation Care: Wash your incision with soap and water and be sure to rinse and dry well If you had neelam they will be removed by your doctor/CNM If you had sutures they will dissolve on their own For ease of movement hold a pillow against the incision: When you get up from a lying or sitting position When you laugh or cough Notify your doctor/CNM for any of the following: Redness Drainage Open areas around your incision Breast Care: To help with discomfort: Feed your baby frequently to avoid engorgement Apply warm compresses to breast before feeding Apply cold compresses to breast after feeding Wear a supportive nursing bra 24 hours a day Do not put soap on your nipples Allow nipples to air dry after feeding Bottle feeding: To help with discomfort: Use cold compresses Wear a tight fitting bra 24 hours a day Notify your doctor/CNM: For swelling, redness, or tenderness in one area of your breast Blues / Depression: Blues : Usually occurs within 3-5 days after delivery Normally goes away on its own Depression: Can also occur within days of delivery, or within a year Warning Signs: Increased crying for no obvious reason Lack of patience Being irritable Being restless Not being able to sleep Not wanting to eat Anxiety Notify your doctor/CNM: If you experience any of the warning signs If you are having any violent thoughts If you are having thoughts of harming yourself or your baby Sibling / Family Adjustment: Each family member will take different amounts of time to adjust to the new baby Be patient and offer lots of love and comfort Offer some individual attention to other children Exercise / Activity: Get plenty of rest Take catnaps while baby is sleeping during the day No heavy cleaning or other housework for the first couple of weeks Lift nothing heavier than your baby for 2 weeks No driving for one week Do not drive while taking narcotics You may start walking and stretching in 2 weeks No strenuous exercises like jogging, aerobics, etc. until after you have seen your doctor/CNM You may start Kegel exercises now The following attachments cannot be sent through Care Everywhere.Depression During and After Discharge Instructions (Angolan) Bleeding (Angolan)What to Watch for After You Have a Baby (Angolan)documented in this encounter [facility] 04-03-2023 Miscellaneous Notes Problem: Optimal Supply and Comfortable Goal: Adequate feeds Description: INTERVENTIONS 1. Offer breast at least 8-12 times in first 24 hours 2. After first day, baby should feed at least 8-12 times in 24 hours. Wake baby at least every 3 hours to feed 3. Offer both breasts 4. Keep baby actively feeding at breast by using breast compressions or stimulating baby. Undress baby for feeds Note: Evaluation of progress towards goal: See LC note. Additional Comments: Revisit: Pt reports pumping is going okay. States she is getting drops at this time. Explained this is normal and expected. Educated on the importance of pumping both breast with double electric breast pump every 2-3 hours for 15- 20 minutes. Pt states she is unsure if she wants to put baby to breast states he doesn't really seem interested. Explained that while baby is recovering from low blood sugars and not feeling well latching can be impacted and to continue to practice breast attempts if her goal was putting baby to breast. Mom will only produce the amount of breastmilk that her baby demands. It is true that hormones drive the production of very early breastmilk, called colostrum. However, in order to keep producing breastmilk, your baby needs to keep sucking from the breast. The overall level of milk production varies based on the babys amount of sucking and how much milk is actually removed. Verbalized understanding. Denies any questions or concerns at this time. Has breast pump for home. This note was copied from a baby's chart. Met with mom at 's bedside. States that pumping is going very slow, she is frustrated that she has not produced any milk at this time. Reassurance given and reviewed average pumping amounts in the first two weeks . It is completely normal that she may pump only drops, and sometimes nothing each time she pumps. She has been pumping every 2-3 hours and has been using a 28mm flange size as it is more comfortable with a better fit. She has the 28mm insert inside of the 25mm flange and so educated on switching to a 30mm flange and inserting the 28mm into that for a tighter fit and better suction for mom. Pumping for your Baby handout given and reviewed. Pump part wash basin and storage bin given and educated on correct pump part washing guidelines. No further questions. Encouraged to reach out for any further assistance. Flange Fit A flange fits correctly when: your nipple is centered in the tube no parts of your nipple rub against the sides little or no areola is pulled in when the pump is turned on On the other hand, a flange is not fitting properly when: you experience nipple pain during or after the pumping session you notice your nipple is becoming discolored, chapped, or otherwise injured In addition to breast and nipple pain, using the wrong sized pump flange can negatively impact the amount of milk you are able to get out of your breast. A flange that fits too tightly will cause the breast to be constricted in ways that can lead to clogged/blogged milk ducts. (When ducts are clogged, they don t release milk and new milk isn t formed as quickly.) On the other hand, a flange that fits too loosely won t provide adequate suction. This can also lead to milk being left in the breast and lower milk production in the future. Pain and infection can develop from this as well. Problem: Pain Goal: Patient goal is pain score less than 4, able to rest, and participant in treatment plan as appropriate Description: INTERVENTIONS: 1. Encourage patient or legal regional sales representative to report early pain and ask for pain medicine when needed 2. Assess pain using appropriate pain scale and include the scale used when documenting 3. Administer analgesics based on type and severity of pain and evaluate response within appropriate time frame 4. Implement non-pharmacological measures as appropriate and evaluate response 5. Consider cultural and social influences on pain and pain management 6. Notify LIP if interventions ineffective or patient reports new pain 7. Monitor vital signs including pulse ox, end-tidal CO2 based on pain intervention 8. Reassess pain per policy 9. Teach patient or legal regional sales representative interventions for comforting Outcome: Progressing Note: Evaluation of progress towards goal: Patient verbalizes pain maintained with pain medication ordered. Problem: Safety Goal: Patient will be injury free during hospitalization Description: INTERVENTIONS: 1. Assess patient's risk for falls and implement fall prevention plan of care per policy 2. Provide and maintain a safe environment 3. Proper use of double Identifiers 4. Medication administration using the 5 rights 5. Hand hygiene 6. Specimens are labeled at the bedside 7. Instruct patient/ patient regional sales representative about use of safety devices 8. Include patient/ patient regional sales representative in decisions related to safety Outcome: Progressing Note: Evaluation of progress towards goal: Safety maintained. Problem: Infection Goal: Absence of infection during hospitalization Description: Interventions: 1. Assess and monitor for signs and symptoms of infection 2. Monitor lab/diagnostic results 3. Monitor all insertion sites i.e., indwelling lines, tubes and drains 4. Monitor endotracheal (as able) and nasal secretions for changes in amount and color 5. Administer medications as ordered 6. Instruct and encourage patient and family to use good hand hygiene technique 7. Identify and instruct patient/patient regional sales representative in use of appropriate isolation precautions for identified infection/symptoms 8. Provide and discuss with patient/patient regional sales representative on educational MDRO sheet 9. Encourage and monitor nutritional status daily and consult commissary superintendent if indicated 10. Implement neutropenic guidelines as needed 11. Review exposure to history of communicable disease and recent travel history on admission 12. Encourage annual influenza vaccine 13. Encourage pneumonia vaccine Outcome: Progressing Note: Evaluation of progress towards goal: No signs/symptoms of infection noted. Please see vitals in flowsheet. Problem: Knowledge Deficit Goal: Patient/patient regional sales representative demonstrates understanding of disease process, treatment plan, medications, and discharge instructions Description: INTERVENTIONS 1. Complete learning assessment and assess knowledge base 2. Provide teaching at level of understanding 3. Provide teaching via preferred learning method(s) Outcome: Progressing Note: Evaluation of progress towards goal: Patient voices and demonstrates understanding of self care. Asks appropriate questions as they arise. Problem: Discharge Planning Goal: Discharge to post-acute care, other facility, or home with appropriate resources Description: Patient's goal is: INTERVENTIONS 1. Conduct assessment to determine patient/family and health care team treatment goals, and need for post-acute services based on payer coverage, community resources, and patient preferences, and barriers to discharge 2. Coordinate with Social work, Care Navigation, and Utilization Review to arrange appropriate level of services according to patient's needs based on patient preference and payer coverage in collaboration with the physician and health care team 3. Address psychosocial, clinical, and financial barriers to discharge as identified in assessment in conjunction with the patient/family and health care team 4. Consult appropriate ancillary services (i.e.. PT/OT/ST, etc) as needed 5. Communicate with and update the patient/family, physician, and health care team regarding progress on the discharge plan 6. Identify discharge learning needs (meds, wound care, etc). 7. Arrange for needed discharge transportation as appropriate Outcome: Progressing Note: Evaluation of progress towards goal: Anticipate discharge home with instructions, voices understanding of instructions given. Problem: Low Risk Fall Score Description: Jules Fall Score of 0 - 24 or indicated by [facility] Assessment Goal: Patient should be free from fall Description: Interventions: 1. [place] to environment 2. Hourly rounds addressing the 4 P's (Pain, Positioning, Possessions, Potty) 3. Clear area of hazards (spills, clutter, electrical cords, unnecessary equipment) 4. Place equipment (bed & TV controls, call light, phone, urinal) within reach 5. Encourage patient to wear glasses and hearing aides as appropriate 6. Maintain bed in lowest position 7. Lock wheels on bed/wheelchair 8. Provide adequate lighting, including night light 9. Assess need for additional bedding, food/fluids, pain med's prior to sleep/routinely 10. Provide gripper slippers or personal non-skid footwear 11. Teach patient and patient regional sales representative to maintain environment for safety and engage in all aspects of fall prevention program Outcome: Progressing Note: Evaluation of progress towards goal: pt will remain free from fall, see cares and safety Problem: Vaginal Delivery - Recovery and Goal: Patient vitals and physical assessment findings are stable following delivery Description: Edema will be absent or minimal INTERVENTIONS 1. Vital signs - vaginal delivery - recovery & 2. Assess fundus - vaginal delivery - recovery and 3. Do lochia check - vaginal delivery - recovery and Outcome: Progressing Note: Evaluation of progress towards goal: Vitals are stable and are monitored q6 hours Goal: Perineum intact without discharge or hematoma Description: INTERVENTIONS 1. Ice to perineum 2. Provide pericare 3. Sitz bath PRN Outcome: Progressing Note: Evaluation of progress towards goal: perineum intact without discharge or hematoma Goal: Ambulates independently Description: INTERVENTION 1. Ambulate Outcome: Progressing Note: Evaluation of progress towards goal: mom is up at [place] and ambulates independently Additional Comments: Problem: Pain Goal: Patient goal is pain score less than 4, able to rest, and participant in treatment plan as appropriate Description: INTERVENTIONS: 1. Encourage patient or legal regional sales representative to report early pain and ask for pain medicine when needed 2. Assess pain using appropriate pain scale and include the scale used when documenting 3. Administer analgesics based on type and severity of pain and evaluate response within appropriate time frame 4. Implement non-pharmacological measures as appropriate and evaluate response 5. Consider cultural and social influences on pain and pain management 6. Notify LIP if interventions ineffective or patient reports new pain 7. Monitor vital signs including pulse ox, end-tidal CO2 based on pain intervention 8. Reassess pain per policy 9. Teach patient or legal regional sales representative interventions for comforting Outcome: Progressing Note: Evaluation of progress towards goal: Patient verbalizes tolerable level of pain at this time. Pain medications will be given as needed. Problem: Safety Goal: Patient will be injury free during hospitalization Description: INTERVENTIONS: 1. Assess patient's risk for falls and implement fall prevention plan of care per policy 2. Provide and maintain a safe environment 3. Proper use of double Identifiers 4. Medication administration using the 5 rights 5. Hand hygiene 6. Specimens are labeled at the bedside 7. Instruct patient/ patient regional sales representative about use of safety devices 8. Include patient/ patient regional sales representative in decisions related to safety Outcome: Progressing Note: Evaluation of progress towards goal: Safe environment maintained. Medications administered using 5 rights. Fall prevention plan implemented as needed. Problem: Infection Goal: Absence of infection during hospitalization Description: Interventions: 1. Assess and monitor for signs and symptoms of infection 2. Monitor lab/diagnostic results 3. Monitor all insertion sites i.e., indwelling lines, tubes and drains 4. Monitor endotracheal (as able) and nasal secretions for changes in amount and color 5. Administer medications as ordered 6. Instruct and encourage patient and family to use good hand hygiene technique 7. Identify and instruct patient/patient regional sales representative in use of appropriate isolation precautions for identified infection/symptoms 8. Provide and discuss with patient/patient regional sales representative on educational MDRO sheet 9. Encourage and monitor nutritional status daily and consult commissary superintendent if indicated 10. Implement neutropenic guidelines as needed 11. Review exposure to history of communicable disease and recent travel history on admission 12. Encourage annual influenza vaccine 13. Encourage pneumonia vaccine Outcome: Progressing Note: Evaluation of progress towards goal: Patient is free from signs and symptoms of infection. Problem: Knowledge Deficit Goal: Patient/patient regional sales representative demonstrates understanding of disease process, treatment plan, medications, and discharge instructions Description: INTERVENTIONS 1. Complete learning assessment and assess knowledge base 2. Provide teaching at level of understanding 3. Provide teaching via preferred learning method(s) Outcome: Progressing Note: Evaluation of progress towards goal: Teaching provided as needed at patient's level of understanding. Problem: Discharge Planning Goal: Discharge to post-acute care, other facility, or home with appropriate resources Description: Patient's goal is: INTERVENTIONS 1. Conduct assessment to determine patient/family and health care team treatment goals, and need for post-acute services based on payer coverage, community resources, and patient preferences, and barriers to discharge 2. Coordinate with Social work, Care Navigation, and Utilization Review to arrange appropriate level of services according to patient's needs based on patient preference and payer coverage in collaboration with the physician and health care team 3. Address psychosocial, clinical, and financial barriers to discharge as identified in assessment in conjunction with the patient/family and health care team 4. Consult appropriate ancillary services (i.e.. PT/OT/ST, etc) as needed 5. Communicate with and update the patient/family, physician, and health care team regarding progress on the discharge plan 6. Identify discharge learning needs (meds, wound care, etc). 7. Arrange for needed discharge transportation as appropriate Outcome: Progressing Note: Evaluation of progress towards goal: Teaching provided as needed at patient's level of understanding. Problem: Low Risk Fall Score Description: Jules Fall Score of 0 - 24 or indicated by [facility] Assessment Goal: Patient should be free from fall Description: Interventions: 1. [place] to environment 2. Hourly rounds addressing the 4 P's (Pain, Positioning, Possessions, Potty) 3. Clear area of hazards (spills, clutter, electrical cords, unnecessary equipment) 4. Place equipment (bed & TV controls, call light, phone, urinal) within reach 5. Encourage patient to wear glasses and hearing aides as appropriate 6. Maintain bed in lowest position 7. Lock wheels on bed/wheelchair 8. Provide adequate lighting, including night light 9. Assess need for additional bedding, food/fluids, pain med's prior to sleep/routinely 10. Provide gripper slippers or personal non-skid footwear 11. Teach patient and patient regional sales representative to maintain environment for safety and engage in all aspects of fall prevention program Outcome: Progressing Note: Evaluation of progress towards goal: Patient understands fall prevention plan. Problem: Moderate - High Risk Fall Score Description: Jules Fall Score of =/> 25 or indicated by [facility] Assessment Goal: Patient should be free from fall Description: Interventions: 1. [place] to environment 2. Hourly rounds addressing the 4 P's (Pain, Positioning, Possessions, Potty) 3. Clear area of hazards (spills, clutter, electrical cords, unnecessary equipment) 4. Place equipment (bed & TV controls, call light, phone, urinal) within reach 5. Encourage patient to wear glasses and hearing aides as appropriate 6. Maintain bed in lowest position 7. Lock wheels on bed/wheelchair 8. Provide adequate lighting, including night light 9. Assess need for additional bedding, food/fluids, pain med's prior to sleep/routinely 10. Provide gripper slippers or personal non-skid footwear 11. Teach patient and patient regional sales representative to maintain environment for safety and engage in all aspects of fall prevention program 12. Remind patient to call for help before getting out of bed 13. Initiate bed/chair/exit alarms supportive devices as appropriate, (chair wedge, no-skid floor mat, raised edge mattress, hip protectors) 14. Locate patient bed assignment for optimal visualization 15. Evaluate and identify Safe Patient Handling Equipment needs 16. Provide supervision when out of bed or chair 17. Utilize gait belt as needed to assist with ambulation 18. Place adaptive equipment (cane, walker) within reach 19. Request patient regional sales representative bring adaptive equipment/mobility aids from home or obtain and provide as needed 20. Consult pharmacy regarding effects of med's affecting mobility, cognition, and alternatives 21. Obtain physician order for PT if risk factors associated with mobility are present 22. Obtain physician order for OT as appropriate 23. Utilize diversional activities 24. Educate patient and patient regional sales representative how to maintain a safe environment during visitation times (notify nurse prior to leaving bedside) 25. Consider appropriateness of medical or non-medical assistant 26. Set up voiding schedule as appropriate (every 2 hours) Outcome: Progressing Note: Evaluation of progress towards goal: Patient understands fall prevention plan. Problem: Vaginal Delivery - Recovery and Goal: Patient vitals and physical assessment findings are stable following delivery Description: Edema will be absent or minimal INTERVENTIONS 1. Vital signs - vaginal delivery - recovery & 2. Assess fundus - vaginal delivery - recovery and 3. Do lochia check - vaginal delivery - recovery and Outcome: Progressing Note: Evaluation of progress towards goal: Vitals and physical assessment stable Goal: Perineum intact without discharge or hematoma Description: INTERVENTIONS 1. Ice to perineum 2. Provide pericare 3. Sitz bath PRN Outcome: Progressing Note: Evaluation of progress towards goal: Perineum intact Goal: Ambulates independently Description: INTERVENTION 1. Ambulate Outcome: Progressing Note: Evaluation of progress towards goal: Ambulates well Problem: Optimal Supply and Comfortable Goal: Adequate feeds Description: INTERVENTIONS 1. Offer breast at least 8-12 times in first 24 hours 2. After first day, baby should feed at least 8-12 times in 24 hours. Wake baby at least every 3 hours to feed 3. Offer both breasts 4. Keep baby actively feeding at breast by using breast compressions or stimulating baby. Undress baby for feeds Outcome: Progressing Note: Evaluation of progress towards goal: Adequate feeds Additional Comments: DISCHARGE PLANNING NOTE Note: copied from infant chart Baby boy: Flaquito MOB: Jolene FOB: Thuan Cerrato attending rounds daily. MOB is a 20 year old, who delivered a baby boy at 39 weeks, weighing 3320 g. Apgars were 6,8,9. TOX urine drug screen negative. SW met parents and maternal grandparents at bedside. SW introduced self and explained role. Discussed NICU. Provided information for NICU pantry. Stated have good support within their friends and family to help with NICU stay and infant at home. Parents stated they have everything they need for when baby is discharged, including car seat and safe sleep. Parents stated they are doing well financially and have reliable transportation, housing, and food. Discussed [facility] - parents will utilize if stays longer than expected. Will get connected to [facility]. No questions regarding insurance. FOB requesting work letter for delivery and NICU admission - provided. Parents declined further assistance at this time. SW discussed PPD with MOB. MOB stated she is feeling doing good . Hx of depression, stable. Currently connected with PCP for management and taking Zoloft. Mom feels comfortable with s/s for PPD. SW provided PPD education sheet. Further resources are available if needed. SW provided family with a book from [employer], a developmental heart, education on parent groups, PPD education, and a NICU packet. SW will follow as needed. Problem: Pain Goal: Patient goal is pain score less than 4, able to rest, and participant in treatment plan as appropriate Description: INTERVENTIONS: 1. Encourage patient or legal regional sales representative to report early pain and ask for pain medicine when needed 2. Assess pain using appropriate pain scale and include the scale used when documenting 3. Administer analgesics based on type and severity of pain and evaluate response within appropriate time frame 4. Implement non-pharmacological measures as appropriate and evaluate response 5. Consider cultural and social influences on pain and pain management 6. Notify LIP if interventions ineffective or patient reports new pain 7. Monitor vital signs including pulse ox, end-tidal CO2 based on pain intervention 8. Reassess pain per policy 9. Teach patient or legal regional sales representative interventions for comforting Outcome: Progressing Note: Evaluation of progress towards goal: Patient verbalizes pain maintained with pain medication ordered. Problem: Safety Goal: Patient will be injury free during hospitalization Description: INTERVENTIONS: 1. Assess patient's risk for falls and implement fall prevention plan of care per policy 2. Provide and maintain a safe environment 3. Proper use of double Identifiers 4. Medication administration using the 5 rights 5. Hand hygiene 6. Specimens are labeled at the bedside 7. Instruct patient/ patient regional sales representative about use of safety devices 8. Include patient/ patient regional sales representative in decisions related to safety Outcome: Progressing Note: Evaluation of progress towards goal: Safety maintained. Problem: Infection Goal: Absence of infection during hospitalization Description: Interventions: 1. Assess and monitor for signs and symptoms of infection 2. Monitor lab/diagnostic results 3. Monitor all insertion sites i.e., indwelling lines, tubes and drains 4. Monitor endotracheal (as able) and nasal secretions for changes in amount and color 5. Administer medications as ordered 6. Instruct and encourage patient and family to use good hand hygiene technique 7. Identify and instruct patient/patient regional sales representative in use of appropriate isolation precautions for identified infection/symptoms 8. Provide and discuss with patient/patient regional sales representative on educational MDRO sheet 9. Encourage and monitor nutritional status daily and consult commissary superintendent if indicated 10. Implement neutropenic guidelines as needed 11. Review exposure to history of communicable disease and recent travel history on admission 12. Encourage annual influenza vaccine 13. Encourage pneumonia vaccine Outcome: Progressing Note: Evaluation of progress towards goal: No signs/symptoms of infection noted. Please see vitals in flowsheet. Problem: Knowledge Deficit Goal: Patient/patient regional sales representative demonstrates understanding of disease process, treatment plan, medications, and discharge instructions Description: INTERVENTIONS 1. Complete learning assessment and assess knowledge base 2. Provide teaching at level of understanding 3. Provide teaching via preferred learning method(s) Outcome: Progressing Note: Evaluation of progress towards goal: Patient voices and demonstrates understanding of self care. Asks appropriate questions as they arise. Problem: Discharge Planning Goal: Discharge to post-acute care, other facility, or home with appropriate resources Description: Patient's goal is: INTERVENTIONS 1. Conduct assessment to determine patient/family and health care team treatment goals, and need for post-acute services based on payer coverage, community resources, and patient preferences, and barriers to discharge 2. Coordinate with Social work, Care Navigation, and Utilization Review to arrange appropriate level of services according to patient's needs based on patient preference and payer coverage in collaboration with the physician and health care team 3. Address psychosocial, clinical, and financial barriers to discharge as identified in assessment in conjunction with the patient/family and health care team 4. Consult appropriate ancillary services (i.e.. PT/OT/ST, etc) as needed 5. Communicate with and update the patient/family, physician, and health care team regarding progress on the discharge plan 6. Identify discharge learning needs (meds, wound care, etc). 7. Arrange for needed discharge transportation as appropriate Outcome: Progressing Note: Evaluation of progress towards goal: Anticipate discharge home with instructions, voices understanding of instructions given. Problem: Low Risk Fall Score Description: Jules Fall Score of 0 - 24 or indicated by [facility] Assessment Goal: Patient should be free from fall Description: Interventions: 1. [place] to environment 2. Hourly rounds addressing the 4 P's (Pain, Positioning, Possessions, Potty) 3. Clear area of hazards (spills, clutter, electrical cords, unnecessary equipment) 4. Place equipment (bed & TV controls, call light, phone, urinal) within reach 5. Encourage patient to wear glasses and hearing aides as appropriate 6. Maintain bed in lowest position 7. Lock wheels on bed/wheelchair 8. Provide adequate lighting, including night light 9. Assess need for additional bedding, food/fluids, pain med's prior to sleep/routinely 10. Provide gripper slippers or personal non-skid footwear 11. Teach patient and patient regional sales representative to maintain environment for safety and engage in all aspects of fall prevention program Outcome: Progressing Note: Evaluation of progress towards goal: pt will remain free from fall, see cares and safety Problem: Vaginal Delivery - Recovery and Goal: Patient vitals and physical assessment findings are stable following delivery Description: Edema will be absent or minimal INTERVENTIONS 1. Vital signs - vaginal delivery - recovery & 2. Assess fundus - vaginal delivery - recovery and 3. Do lochia check - vaginal delivery - recovery and Outcome: Progressing Note: Evaluation of progress towards goal: Vitals are stable and are monitored q6 hours ' Goal: Perineum intact without discharge or hematoma Description: INTERVENTIONS 1. Ice to perineum 2. Provide pericare 3. Sitz bath PRN Outcome: Progressing Note: Evaluation of progress towards goal: perineum intact without discharge or hematoma Goal: Ambulates independently Description: INTERVENTION 1. Ambulate Outcome: Progressing Note: Evaluation of progress towards goal: mom is up at [place] and ambulates independently Problem: Optimal Supply and Comfortable Goal: Adequate feeds Description: INTERVENTIONS 1. Offer breast at least 8-12 times in first 24 hours 2. After first day, baby should feed at least 8-12 times in 24 hours. Wake baby at least every 3 hours to feed 3. Offer both breasts 4. Keep baby actively feeding at breast by using breast compressions or stimulating baby. Undress baby for feeds Outcome: Progressing Note: Evaluation of progress towards goal: pumping for in nicu Additional Comments: Problem: Pain Goal: Patient goal is pain score less than 4, able to rest, and participant in treatment plan as appropriate Description: INTERVENTIONS: 1. Encourage patient or legal regional sales representative to report early pain and ask for pain medicine when needed 2. Assess pain using appropriate pain scale and include the scale used when documenting 3. Administer analgesics based on type and severity of pain and evaluate response within appropriate time frame 4. Implement non-pharmacological measures as appropriate and evaluate response 5. Consider cultural and social influences on pain and pain management 6. Notify LIP if interventions ineffective or patient reports new pain 7. Monitor vital signs including pulse ox, end-tidal CO2 based on pain intervention 8. Reassess pain per policy 9. Teach patient or legal regional sales representative interventions for comforting Outcome: Progressing Note: Evaluation of progress towards goal: Pain managed well without medications at this time. Patient can verbalizes pain and acceptable pain level. Problem: Safety Goal: Patient will be injury free during hospitalization Description: INTERVENTIONS: 1. Assess patient's risk for falls and implement fall prevention plan of care per policy 2. Provide and maintain a safe environment 3. Proper use of double Identifiers 4. Medication administration using the 5 rights 5. Hand hygiene 6. Specimens are labeled at the bedside 7. Instruct patient/ patient regional sales representative about use of safety devices 8. Include patient/ patient regional sales representative in decisions related to safety Outcome: Progressing Note: Evaluation of progress towards goal: Pt remains injury free; precautions followed. Call light and personal items within reach. Support person and at bedside. Patient aware of own limitations. Problem: Infection Goal: Absence of infection during hospitalization Description: Interventions: 1. Assess and monitor for signs and symptoms of infection 2. Monitor lab/diagnostic results 3. Monitor all insertion sites i.e., indwelling lines, tubes and drains 4. Monitor endotracheal (as able) and nasal secretions for changes in amount and color 5. Administer medications as ordered 6. Instruct and encourage patient and family to use good hand hygiene technique 7. Identify and instruct patient/patient regional sales representative in use of appropriate isolation precautions for identified infection/symptoms 8. Provide and discuss with patient/patient regional sales representative on educational MDRO sheet 9. Encourage and monitor nutritional status daily and consult commissary superintendent if indicated 10. Implement neutropenic guidelines as needed 11. Review exposure to history of communicable disease and recent travel history on admission 12. Encourage annual influenza vaccine 13. Encourage pneumonia vaccine Outcome: Progressing Note: Evaluation of progress towards goal: No signs or symptoms of infection present at this time. Vitals signs monitored Q6. Patient and environment monitored for risk factors leading to infection. Problem: Knowledge Deficit Goal: Patient/patient regional sales representative demonstrates understanding of disease process, treatment plan, medications, and discharge instructions Description: INTERVENTIONS 1. Complete learning assessment and assess knowledge base 2. Provide teaching at level of understanding 3. Provide teaching via preferred learning method(s) Outcome: Progressing Note: Evaluation of progress towards goal: Discharge interventions ongoing, education provided to patient as needed. No questions at this time. Problem: Discharge Planning Goal: Discharge to post-acute care, other facility, or home with appropriate resources Description: Patient's goal is: INTERVENTIONS 1. Conduct assessment to determine patient/family and health care team treatment goals, and need for post-acute services based on payer coverage, community resources, and patient preferences, and barriers to discharge 2. Coordinate with Social work, Care Navigation, and Utilization Review to arrange appropriate level of services according to patient's needs based on patient preference and payer coverage in collaboration with the physician and health care team 3. Address psychosocial, clinical, and financial barriers to discharge as identified in assessment in conjunction with the patient/family and health care team 4. Consult appropriate ancillary services (i.e.. PT/OT/ST, etc) as needed 5. Communicate with and update the patient/family, physician, and health care team regarding progress on the discharge plan 6. Identify discharge learning needs (meds, wound care, etc). 7. Arrange for needed discharge transportation as appropriate Outcome: Progressing Note: Evaluation of progress towards goal: Discharge planning ongoing. Anticipate discharge on 04/03/2023 Problem: Low Risk Fall Score Description: Jules Fall Score of 0 - 24 or indicated by [facility] Assessment Goal: Patient should be free from fall Description: Interventions: 1. [place] to environment 2. Hourly rounds addressing the 4 P's (Pain, Positioning, Possessions, Potty) 3. Clear area of hazards (spills, clutter, electrical cords, unnecessary equipment) 4. Place equipment (bed & TV controls, call light, phone, urinal) within reach 5. Encourage patient to wear glasses and hearing aides as appropriate 6. Maintain bed in lowest position 7. Lock wheels on bed/wheelchair 8. Provide adequate lighting, including night light 9. Assess need for additional bedding, food/fluids, pain med's prior to sleep/routinely 10. Provide gripper slippers or personal non-skid footwear 11. Teach patient and patient regional sales representative to maintain environment for safety and engage in all aspects of fall prevention program Outcome: Progressing Note: Evaluation of progress towards goal: Pt remains injury free; precautions followed. Call light and personal items within reach. Support person and at bedside. Patient aware of own limitations. Problem: Moderate - High Risk Fall Score Description: Ujles Fall Score of =/> 25 or indicated by [facility] Assessment Goal: Patient should be free from fall Description: Interventions: 1. [place] to environment 2. Hourly rounds addressing the 4 P's (Pain, Positioning, Possessions, Potty) 3. Clear area of hazards (spills, clutter, electrical cords, unnecessary equipment) 4. Place equipment (bed & TV controls, call light, phone, urinal) within reach 5. Encourage patient to wear glasses and hearing aides as appropriate 6. Maintain bed in lowest position 7. Lock wheels on bed/wheelchair 8. Provide adequate lighting, including night light 9. Assess need for additional bedding, food/fluids, pain med's prior to sleep/routinely 10. Provide gripper slippers or personal non-skid footwear 11. Teach patient and patient regional sales representative to maintain environment for safety and engage in all aspects of fall prevention program 12. Remind patient to call for help before getting out of bed 13. Initiate bed/chair/exit alarms supportive devices as appropriate, (chair wedge, no-skid floor mat, raised edge mattress, hip protectors) 14. Locate patient bed assignment for optimal visualization 15. Evaluate and identify Safe Patient Handling Equipment needs 16. Provide supervision when out of bed or chair 17. Utilize gait belt as needed to assist with ambulation 18. Place adaptive equipment (cane, walker) within reach 19. Request patient regional sales representative bring adaptive equipment/mobility aids from home or obtain and provide as needed 20. Consult pharmacy regarding effects of med's affecting mobility, cognition, and alternatives 21. Obtain physician order for PT if risk factors associated with mobility are present 22. Obtain physician order for OT as appropriate 23. Utilize diversional activities 24. Educate patient and patient regional sales representative how to maintain a safe environment during visitation times (notify nurse prior to leaving bedside) 25. Consider appropriateness of medical or non-medical assistant 26. Set up voiding schedule as appropriate (every 2 hours) Outcome: Progressing Note: Evaluation of progress towards goal: Pt remains injury free; precautions followed. Call light and personal items within reach. Support person and at bedside. Patient aware of own limitations. Problem: Vaginal Delivery - Recovery and Goal: Patient vitals and physical assessment findings are stable following delivery Description: Edema will be absent or minimal INTERVENTIONS 1. Vital signs - vaginal delivery - recovery & 2. Assess fundus - vaginal delivery - recovery and 3. Do lochia check - vaginal delivery - recovery and Outcome: Progressing Note: Evaluation of progress towards goal: Patient vitals and physical assessment findings are wnl following vaginal delivery of baby boy Goal: Perineum intact without discharge or hematoma Description: INTERVENTIONS 1. Ice to perineum 2. Provide pericare 3. Sitz bath PRN Outcome: Progressing Note: Evaluation of progress towards goal: Perineum with lacerations, education on pericare Goal: Ambulates independently Description: INTERVENTION 1. Ambulate Outcome: Progressing Note: Evaluation of progress towards goal: Patient ambulating independently at this time Problem: Optimal Supply and Comfortable Goal: Adequate feeds Description: INTERVENTIONS 1. Offer breast at least 8-12 times in first 24 hours 2. After first day, baby should feed at least 8-12 times in 24 hours. Wake baby at least every 3 hours to feed 3. Offer both breasts 4. Keep baby actively feeding at breast by using breast compressions or stimulating baby. Undress baby for feeds Outcome: Progressing Note: Evaluation of progress towards goal: Goal complete, supplementing due to low blood sugars on infant Additional Comments: Delivery Record Patient Observations (Last 24 hours) None Patient Observations (Last 24 hours) None Burrows, Pending [[id number]] Events of Labor labor?: No steroids?: None Cervical ripening date/time: Antibiotics received during labor?: No Rupture date/time: 04/01/23 1233 Rupture type: Artificial, Intact Fluid color: Clear Fluid odor: No Induction: Oxytocin, AROM Labor complications: None Labor Event Times Labor onset date/time: 04/01/23 0530 Dilation complete date/time: 04/01/232203 Start pushing date/time: 04/01/20232214 Anesthesia Method: Epidural Anesthesia provided by: Stephen Forte SENIOR MEDICAL TRANSCRIPTIONIST Attending: Yaima Mc MD Assisted Delivery Forceps attempted?: No Vacuum extractor attempted?: No Document Additional Attempt Document Additional Attempt Shoulder Dystocia Shoulder dystocial present?: No Second Maneuver Third Maneuver Fourth Maneuver Fifth Maneuver Sixth Maneuver Seventh Maneuver Eighth Maneuver \Ninth Maneuver Presentation Presentation: Vertex Position: Right Occiput Anterior [place] Information Delivery date/time: 04/01/232217 Delivery type: Vaginal, Spontaneous details: Trial of labor?: Yes Delivery Providers Delivering clinician: AURELIA Arzola Provider Role Anat Leblanc RN Delivery Nurse Kesha Banks Nurse Apprentice Painter Neckties Student Nurse Cord Information Vessels: 3 vessels Complications: Wrapped Cord around: neck, right upper extremity Number of loops: 1 Delayed cord clamping?: Yes Cord clamped date/time: 04/01/2023 10:19 PM Cord blood obtained?: Yes Cord blood disposition: Lab Gases sent?: Yes Cord comments: Cord segment obtained Stem cell collection (by )?: No Placenta Date/time: 04/01/20232222 Removal: Spontaneous Appearance: Intact Disposition: discarded hemorrhage: No Resuscitation Method: Suctioning, Tactile stimulation Resuscitation needed: Yes Additional resources called: Yes Additional resource: NICU [place] Assessment No data filed Skin to Skin No data filed Measurements Weight: 3.32 kg Lacerations/EBL Episiotomy: None Perineal lacerations: None Periurethral laceration: bilateral Repaired: No Vaginal laceration: Yes Repaired: No Surgical or additional est. blood loss (mL): 0 Combined est. blood loss (mL): 0 Repair suture: None Number of repair packets: 0 Other Delivery Procedures Procedures at bedside: None SNM to room for SVE at 6 hours, SVE 10/100/+2. Began pushing effectively with contractions. Viable male delivered in CHERELLE position,with cord wrapped around side of neck and posterior arm. Shoulders delivered without additional maneuvers. Infant placed on maternal abdomen, stimulation and suctioning done. had poor tone, minimal respiratory effort, and poor color. Delayed cord clamping done for 30 seconds. Cord double clamped by SNM and then cut by FOB. Cord segment and cord blood obtained. Placenta delivered via Navarro presentation. Fundus boggy and bleeding moderate. PP pitocin infusing per protocol at this point. Bimanual completed with multiple large clots removed from the uterus, fundus firming up. Methergine IM given. Fundus firm U/U, bleeding WNL. . Perineum inspected, hemostatic bilateral periurethral lacerations, and a small right vaginal hemostatic laceration noted. Mother and baby in stable condition. EBL 350 PRAVIN Biswas' Associated attestation - Cathryn Eric APRN-CNM - 04/01/2023 11:14 PM EST I performed the of the patient with the student SHERIF and discussed management with the student. I reviewed the student's note documented findings and I agree with the assessment and plan. Problem: Pain Goal: Patient goal is pain score less than 4, able to rest, and participant in treatment plan as appropriate Description: INTERVENTIONS: 1. Encourage patient or legal regional sales representative to report early pain and ask for pain medicine when needed 2. Assess pain using appropriate pain scale and include the scale used when documenting 3. Administer analgesics based on type and severity of pain and evaluate response within appropriate time frame 4. Implement non-pharmacological measures as appropriate and evaluate response 5. Consider cultural and social influences on pain and pain management 6. Notify LIP if interventions ineffective or patient reports new pain 7. Monitor vital signs including pulse ox, end-tidal CO2 based on pain intervention 8. Reassess pain per policy 9. Teach patient or legal regional sales representative interventions for comforting Outcome: Progressing Note: Evaluation of progress towards goal: Patient verbalizes tolerable pain score at this time. Pain medications will be given as needed. Problem: Safety Goal: Patient will be injury free during hospitalization Description: INTERVENTIONS: 1. Assess patient's risk for falls and implement fall prevention plan of care per policy 2. Provide and maintain a safe environment 3. Proper use of double Identifiers 4. Medication administration using the 5 rights 5. Hand hygiene 6. Specimens are labeled at the bedside 7. Instruct patient/ patient regional sales representative about use of safety devices 8. Include patient/ patient regional sales representative in decisions related to safety Outcome: Progressing Note: Evaluation of progress towards goal: Safe environment maintained at this time. Problem: Infection Goal: Absence of infection during hospitalization Description: Interventions: 1. Assess and monitor for signs and symptoms of infection 2. Monitor lab/diagnostic results 3. Monitor all insertion sites i.e., indwelling lines, tubes and drains 4. Monitor endotracheal (as able) and nasal secretions for changes in amount and color 5. Administer medications as ordered 6. Instruct and encourage patient and family to use good hand hygiene technique 7. Identify and instruct patient/patient regional sales representative in use of appropriate isolation precautions for identified infection/symptoms 8. Provide and discuss with patient/patient regional sales representative on educational MDRO sheet 9. Encourage and monitor nutritional status daily and consult commissary superintendent if indicated 10. Implement neutropenic guidelines as needed 11. Review exposure to history of communicable disease and recent travel history on admission 12. Encourage annual influenza vaccine 13. Encourage pneumonia vaccine Outcome: Progressing Note: Evaluation of progress towards goal: Patient is free from signs and symptoms of infection at this time. Problem: Knowledge Deficit Goal: Patient/patient regional sales representative demonstrates understanding of disease process, treatment plan, medications, and discharge instructions Description: INTERVENTIONS 1. Complete learning assessment and assess knowledge base 2. Provide teaching at level of understanding 3. Provide teaching via preferred learning method(s) Outcome: Progressing Note: Evaluation of progress towards goal: Teaching provided as needed at patient's level of understanding. Problem: Discharge Planning Goal: Discharge to post-acute care, other facility, or home with appropriate resources Description: Patient's goal is: INTERVENTIONS 1. Conduct assessment to determine patient/family and health care team treatment goals, and need for post-acute services based on payer coverage, community resources, and patient preferences, and barriers to discharge 2. Coordinate with Social work, Care Navigation, and Utilization Review to arrange appropriate level of services according to patient's needs based on patient preference and payer coverage in collaboration with the physician and health care team 3. Address psychosocial, clinical, and financial barriers to discharge as identified in assessment in conjunction with the patient/family and health care team 4. Consult appropriate ancillary services (i.e.. PT/OT/ST, etc) as needed 5. Communicate with and update the patient/family, physician, and health care team regarding progress on the discharge plan 6. Identify discharge learning needs (meds, wound care, etc). 7. Arrange for needed discharge transportation as appropriate Outcome: Progressing Note: Evaluation of progress towards goal: Appropriate consults done at this time. Patient verbalizes understanding. Problem: Low Risk Fall Score Description: Jules Fall Score of 0 - 24 or indicated by [facility] Assessment Goal: Patient should be free from fall Description: Interventions: 1. [place] to environment 2. Hourly rounds addressing the 4 P's (Pain, Positioning, Possessions, Potty) 3. Clear area of hazards (spills, clutter, electrical cords, unnecessary equipment) 4. Place equipment (bed & TV controls, call light, phone, urinal) within reach 5. Encourage patient to wear glasses and hearing aides as appropriate 6. Maintain bed in lowest position 7. Lock wheels on bed/wheelchair 8. Provide adequate lighting, including night light 9. Assess need for additional bedding, food/fluids, pain med's prior to sleep/routinely 10. Provide gripper slippers or personal non-skid footwear 11. Teach patient and patient regional sales representative to maintain environment for safety and engage in all aspects of fall prevention program Outcome: Progressing Note: Evaluation of progress towards goal: Fall prevention plan implemented as needed. Problem: Oligohydramnios/Polyhydramnios Goal: Patient will have adequate monitoring during labor Description: INTERVENTION 1. Monitor electric monitoring as ordered Outcome: Progressing Note: Evaluation of progress towards goal: monitoring adequate at this time. Goal: heart tones will be within normal limits after ROM Description: INTERVENTION 1. Monitor heart tones in labor for signs of cord compression Outcome: Progressing Note: Evaluation of progress towards goal: heart tones within normal limits at this time. Problem: Moderate - High Risk Fall Score Description: Jules Fall Score of =/> 25 or indicated by [facility] Assessment Goal: Patient should be free from fall Description: Interventions: 1. [place] to environment 2. Hourly rounds addressing the 4 P's (Pain, Positioning, Possessions, Potty) 3. Clear area of hazards (spills, clutter, electrical cords, unnecessary equipment) 4. Place equipment (bed & TV controls, call light, phone, urinal) within reach 5. Encourage patient to wear glasses and hearing aides as appropriate 6. Maintain bed in lowest position 7. Lock wheels on bed/wheelchair 8. Provide adequate lighting, including night light 9. Assess need for additional bedding, food/fluids, pain med's prior to sleep/routinely 10. Provide gripper slippers or personal non-skid footwear 11. Teach patient and patient regional sales representative to maintain environment for safety and engage in all aspects of fall prevention program 12. Remind patient to call for help before getting out of bed 13. Initiate bed/chair/exit alarms supportive devices as appropriate, (chair wedge, no-skid floor mat, raised edge mattress, hip protectors) 14. Locate patient bed assignment for optimal visualization 15. Evaluate and identify Safe Patient Handling Equipment needs 16. Provide supervision when out of bed or chair 17. Utilize gait belt as needed to assist with ambulation 18. Place adaptive equipment (cane, walker) within reach 19. Request patient regional sales representative bring adaptive equipment/mobility aids from home or obtain and provide as needed 20. Consult pharmacy regarding effects of med's affecting mobility, cognition, and alternatives 21. Obtain physician order for PT if risk factors associated with mobility are present 22. Obtain physician order for OT as appropriate 23. Utilize diversional activities 24. Educate patient and patient regional sales representative how to maintain a safe environment during visitation times (notify nurse prior to leaving bedside) 25. Consider appropriateness of medical or non-medical assistant 26. Set up voiding schedule as appropriate (every 2 hours) Outcome: Progressing Note: Evaluation of progress towards goal: Patient has no falls at this time. Additional Comments: Problem: Pain Goal: Patient goal is pain score less than 4, able to rest, and participant in treatment plan as appropriate Description: INTERVENTIONS: 1. Encourage patient or legal regional sales representative to report early pain and ask for pain medicine when needed 2. Assess pain using appropriate pain scale and include the scale used when documenting 3. Administer analgesics based on type and severity of pain and evaluate response within appropriate time frame 4. Implement non-pharmacological measures as appropriate and evaluate response 5. Consider cultural and social influences on pain and pain management 6. Notify LIP if interventions ineffective or patient reports new pain 7. Monitor vital signs including pulse ox, end-tidal CO2 based on pain intervention 8. Reassess pain per policy 9. Teach patient or legal regional sales representative interventions for comforting Outcome: Progressing Note: Evaluation of progress towards goal: Patient verbalizes tolerable level of pain at this time. Pain medications will be given as needed. Problem: Safety Goal: Patient will be injury free during hospitalization Description: INTERVENTIONS: 1. Assess patient's risk for falls and implement fall prevention plan of care per policy 2. Provide and maintain a safe environment 3. Proper use of double Identifiers 4. Medication administration using the 5 rights 5. Hand hygiene 6. Specimens are labeled at the bedside 7. Instruct patient/ patient regional sales representative about use of safety devices 8. Include patient/ patient regional sales representative in decisions related to safety Outcome: Progressing Note: Evaluation of progress towards goal: Safe environment maintained. Medications administered using 5 rights. Fall prevention plan implemented as needed. Problem: Infection Goal: Absence of infection during hospitalization Description: Interventions: 1. Assess and monitor for signs and symptoms of infection 2. Monitor lab/diagnostic results 3. Monitor all insertion sites i.e., indwelling lines, tubes and drains 4. Monitor endotracheal (as able) and nasal secretions for changes in amount and color 5. Administer medications as ordered 6. Instruct and encourage patient and family to use good hand hygiene technique 7. Identify and instruct patient/patient regional sales representative in use of appropriate isolation precautions for identified infection/symptoms 8. Provide and discuss with patient/patient regional sales representative on educational MDRO sheet 9. Encourage and monitor nutritional status daily and consult commissary superintendent if indicated 10. Implement neutropenic guidelines as needed 11. Review exposure to history of communicable disease and recent travel history on admission 12. Encourage annual influenza vaccine 13. Encourage pneumonia vaccine Outcome: Progressing Note: Evaluation of progress towards goal: Patient is free from signs and symptoms of infection. Problem: Knowledge Deficit Goal: Patient/patient regional sales representative demonstrates understanding of disease process, treatment plan, medications, and discharge instructions Description: INTERVENTIONS 1. Complete learning assessment and assess knowledge base 2. Provide teaching at level of understanding 3. Provide teaching via preferred learning method(s) Outcome: Progressing Note: Evaluation of progress towards goal: Teaching provided as needed at patient's level of understanding. Problem: Discharge Planning Goal: Discharge to post-acute care, other facility, or home with appropriate resources Description: Patient's goal is: INTERVENTIONS 1. Conduct assessment to determine patient/family and health care team treatment goals, and need for post-acute services based on payer coverage, community resources, and patient preferences, and barriers to discharge 2. Coordinate with Social work, Care Navigation, and Utilization Review to arrange appropriate level of services according to patient's needs based on patient preference and payer coverage in collaboration with the physician and health care team 3. Address psychosocial, clinical, and financial barriers to discharge as identified in assessment in conjunction with the patient/family and health care team 4. Consult appropriate ancillary services (i.e.. PT/OT/ST, etc) as needed 5. Communicate with and update the patient/family, physician, and health care team regarding progress on the discharge plan 6. Identify discharge learning needs (meds, wound care, etc). 7. Arrange for needed discharge transportation as appropriate Outcome: Progressing Note: Evaluation of progress towards goal: Appropriate consults done as needed. Discharge learning needs identified. Problem: Low Risk Fall Score Description: Jules Fall Score of 0 - 24 or indicated by [facility] Assessment Goal: Patient should be free from fall Description: Interventions: 1. [place] to environment 2. Hourly rounds addressing the 4 P's (Pain, Positioning, Possessions, Potty) 3. Clear area of hazards (spills, clutter, electrical cords, unnecessary equipment) 4. Place equipment (bed & TV controls, call light, phone, urinal) within reach 5. Encourage patient to wear glasses and hearing aides as appropriate 6. Maintain bed in lowest position 7. Lock wheels on bed/wheelchair 8. Provide adequate lighting, including night light 9. Assess need for additional bedding, food/fluids, pain med's prior to sleep/routinely 10. Provide gripper slippers or personal non-skid footwear 11. Teach patient and patient regional sales representative to maintain environment for safety and engage in all aspects of fall prevention program Outcome: Progressing Note: Evaluation of progress towards goal: Patient understands fall prevention plan. Problem: Oligohydramnios/Polyhydramnios Goal: Patient will have adequate monitoring during labor Description: INTERVENTION 1. Monitor electric monitoring as ordered Outcome: Progressing Note: Evaluation of progress towards goal: Continuous monitoring. FHR tracing WNL. Goal: heart tones will be within normal limits after ROM Description: INTERVENTION 1. Monitor heart tones in labor for signs of cord compression Outcome: Progressing Note: Evaluation of progress towards goal: Continuous monitoring. FHR tracing WNL. Problem: Moderate - High Risk Fall Score Description: Jules Fall Score of =/> 25 or indicated by [facility] Assessment Goal: Patient should be free from fall Description: Interventions: 1. [place] to environment 2. Hourly rounds addressing the 4 P's (Pain, Positioning, Possessions, Potty) 3. Clear area of hazards (spills, clutter, electrical cords, unnecessary equipment) 4. Place equipment (bed & TV controls, call light, phone, urinal) within reach 5. Encourage patient to wear glasses and hearing aides as appropriate 6. Maintain bed in lowest position 7. Lock wheels on bed/wheelchair 8. Provide adequate lighting, including night light 9. Assess need for additional bedding, food/fluids, pain med's prior to sleep/routinely 10. Provide gripper slippers or personal non-skid footwear 11. Teach patient and patient regional sales representative to maintain environment for safety and engage in all aspects of fall prevention program 12. Remind patient to call for help before getting out of bed 13. Initiate bed/chair/exit alarms supportive devices as appropriate, (chair wedge, no-skid floor mat, raised edge mattress, hip protectors) 14. Locate patient bed assignment for optimal visualization 15. Evaluate and identify Safe Patient Handling Equipment needs 16. Provide supervision when out of bed or chair 17. Utilize gait belt as needed to assist with ambulation 18. Place adaptive equipment (cane, walker) within reach 19. Request patient regional sales representative bring adaptive equipment/mobility aids from home or obtain and provide as needed 20. Consult pharmacy regarding effects of med's affecting mobility, cognition, and alternatives 21. Obtain physician order for PT if risk factors associated with mobility are present 22. Obtain physician order for OT as appropriate 23. Utilize diversional activities 24. Educate patient and patient regional sales representative how to maintain a safe environment during visitation times (notify nurse prior to leaving bedside) 25. Consider appropriateness of medical or non-medical assistant 26. Set up voiding schedule as appropriate (every 2 hours) Outcome: Progressing Note: Evaluation of progress towards goal: .Patient understands fall prevention plan. Additional Comments: Problem: Pain Goal: Patient goal is pain score less than 4, able to rest, and participant in treatment plan as appropriate Description: INTERVENTIONS: 1. Encourage patient or legal regional sales representative to report early pain and ask for pain medicine when needed 2. Assess pain using appropriate pain scale and include the scale used when documenting 3. Administer analgesics based on type and severity of pain and evaluate response within appropriate time frame 4. Implement non-pharmacological measures as appropriate and evaluate response 5. Consider cultural and social influences on pain and pain management 6. Notify LIP if interventions ineffective or patient reports new pain 7. Monitor vital signs including pulse ox, end-tidal CO2 based on pain intervention 8. Reassess pain per policy 9. Teach patient or legal regional sales representative interventions for comforting Outcome: Progressing Note: Evaluation of progress towards goal: Patient verbalizes tolerable level of pain at this time. Pain medications will be given as needed. Problem: Safety Goal: Patient will be injury free during hospitalization Description: INTERVENTIONS: 1. Assess patient's risk for falls and implement fall prevention plan of care per policy 2. Provide and maintain a safe environment 3. Proper use of double Identifiers 4. Medication administration using the 5 rights 5. Hand hygiene 6. Specimens are labeled at the bedside 7. Instruct patient/ patient regional sales representative about use of safety devices 8. Include patient/ patient regional sales representative in decisions related to safety Outcome: Progressing Note: Evaluation of progress towards goal: Safe environment maintained. Medications administered using 5 rights. Fall prevention plan implemented as needed. Problem: Infection Goal: Absence of infection during hospitalization Description: Interventions: 1. Assess and monitor for signs and symptoms of infection 2. Monitor lab/diagnostic results 3. Monitor all insertion sites i.e., indwelling lines, tubes and drains 4. Monitor endotracheal (as able) and nasal secretions for changes in amount and color 5. Administer medications as ordered 6. Instruct and encourage patient and family to use good hand hygiene technique 7. Identify and instruct patient/patient regional sales representative in use of appropriate isolation precautions for identified infection/symptoms 8. Provide and discuss with patient/patient regional sales representative on educational MDRO sheet 9. Encourage and monitor nutritional status daily and consult commissary superintendent if indicated 10. Implement neutropenic guidelines as needed 11. Review exposure to history of communicable disease and recent travel history on admission 12. Encourage annual influenza vaccine 13. Encourage pneumonia vaccine Outcome: Progressing Note: Evaluation of progress towards goal: Patient is free from signs and symptoms of infection. Problem: Knowledge Deficit Goal: Patient/patient regional sales representative demonstrates understanding of disease process, treatment plan, medications, and discharge instructions Description: INTERVENTIONS 1. Complete learning assessment and assess knowledge base 2. Provide teaching at level of understanding 3. Provide teaching via preferred learning method(s) Outcome: Progressing Note: Evaluation of progress towards goal: Teaching provided as needed at patient's level of understanding. Problem: Discharge Planning Goal: Discharge to post-acute care, other facility, or home with appropriate resources Description: Patient's goal is: INTERVENTIONS 1. Conduct assessment to determine patient/family and health care team treatment goals, and need for post-acute services based on payer coverage, community resources, and patient preferences, and barriers to discharge 2. Coordinate with Social work, Care Navigation, and Utilization Review to arrange appropriate level of services according to patient's needs based on patient preference and payer coverage in collaboration with the physician and health care team 3. Address psychosocial, clinical, and financial barriers to discharge as identified in assessment in conjunction with the patient/family and health care team 4. Consult appropriate ancillary services (i.e.. PT/OT/ST, etc) as needed 5. Communicate with and update the patient/family, physician, and health care team regarding progress on the discharge plan 6. Identify discharge learning needs (meds, wound care, etc). 7. Arrange for needed discharge transportation as appropriate Outcome: Progressing Note: Evaluation of progress towards goal: Appropriate consults done as needed. Discharge learning needs identified. Problem: Low Risk Fall Score Description: Jules Fall Score of 0 - 24 or indicated by [facility] Assessment Goal: Patient should be free from fall Description: Interventions: 1. [place] to environment 2. Hourly rounds addressing the 4 P's (Pain, Positioning, Possessions, Potty) 3. Clear area of hazards (spills, clutter, electrical cords, unnecessary equipment) 4. Place equipment (bed & TV controls, call light, phone, urinal) within reach 5. Encourage patient to wear glasses and hearing aides as appropriate 6. Maintain bed in lowest position 7. Lock wheels on bed/wheelchair 8. Provide adequate lighting, including night light 9. Assess need for additional bedding, food/fluids, pain med's prior to sleep/routinely 10. Provide gripper slippers or personal non-skid footwear 11. Teach patient and patient regional sales representative to maintain environment for safety and engage in all aspects of fall prevention program Outcome: Progressing Note: Evaluation of progress towards goal: Patient understands fall prevention plan. Problem: Oligohydramnios/Polyhydramnios Goal: Patient will have adequate monitoring during labor Description: INTERVENTION 1. Monitor electric monitoring as ordered Outcome: Progressing Note: Evaluation of progress towards goal: pt is maintaining monitoring Goal: heart tones will be within normal limits after ROM Description: INTERVENTION 1. Monitor heart tones in labor for signs of cord compression Outcome: Progressing Note: Evaluation of progress towards goal: tones within defined limits pt not yet ruptured Additional Comments: documented in this encounter [facility] 04-03-2023 Obstetrics Note Revisit: Pt reports pumping is going okay. States she is getting drops at this time. Explained this is normal and expected. Educated on the importance of pumping both breast with double electric breast pump every 2-3 hours for 15- 20 minutes. Pt states she is unsure if she wants to put baby to breast states he doesn't really seem interested. Explained that while baby is recovering from low blood sugars and not feeling well latching can be impacted and to continue to practice breast attempts if her goal was putting baby to breast. Mom will only produce the amount of breastmilk that her baby demands. It is true that hormones drive the production of very early breastmilk, called colostrum. However, in order to keep producing breastmilk, your baby needs to keep sucking from the breast. The overall level of milk production varies based on the babys amount of sucking and how much milk is actually removed. Verbalized understanding. Denies any questions or concerns at this time. Has breast pump for home. [facility] 04-03-2023 Plan of care note Problem: Optimal Supply and Comfortable Goal: Adequate feeds Description: INTERVENTIONS 1. Offer breast at least 8-12 times in first 24 hours 2. After first day, baby should feed at least 8-12 times in 24 hours. Wake baby at least every 3 hours to feed 3. Offer both breasts 4. Keep baby actively feeding at breast by using breast compressions or stimulating baby. Undress baby for feeds Note: Evaluation of progress towards goal: See LC note. Additional Comments: [facility] 04-03-2023 Obstetrics Note This note was copied from a baby's chart. Met with mom at 's bedside. States that pumping is going very slow, she is frustrated that she has not produced any milk at this time. Reassurance given and reviewed average pumping amounts in the first two weeks . It is completely normal that she may pump only drops, and sometimes nothing each time she pumps. She has been pumping every 2-3 hours and has been using a 28mm flange size as it is more comfortable with a better fit. She has the 28mm insert inside of the 25mm flange and so educated on switching to a 30mm flange and inserting the 28mm into that for a tighter fit and better suction for mom. Pumping for your Baby handout given and reviewed. Pump part wash basin and storage bin given and educated on correct pump part washing guidelines. No further questions. Encouraged to reach out for any further assistance. Flange Fit A flange fits correctly when: your nipple is centered in the tube no parts of your nipple rub against the sides little or no areola is pulled in when the pump is turned on On the other hand, a flange is not fitting properly when: you experience nipple pain during or after the pumping session you notice your nipple is becoming discolored, chapped, or otherwise injured In addition to breast and nipple pain, using the wrong sized pump flange can negatively impact the amount of milk you are able to get out of your breast. A flange that fits too tightly will cause the breast to be constricted in ways that can lead to clogged/blogged milk ducts. (When ducts are clogged, they don t release milk and new milk isn t formed as quickly.) On the other hand, a flange that fits too loosely won t provide adequate suction. This can also lead to milk being left in the breast and lower milk production in the future. Pain and infection can develop from this as well. [facility] 04-03-2023 Hospital course Narrative Obstetrical Discharge Form Care Provider: SHANA GORMAN EDC: Estimated Date of Delivery: 04/07/23 Gestational Age:39w1d Antepartum complications: 1. Poly DVP 10.3 on 03/24 2. Elevated BMI. Last Growth 03/18/23: EFW: 2723gm, 6lb, 19%, AC 18% 3. 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 Elevated 1hr, Nl 3hr 6. Hx of SOB and heart pael 7. Syncope 8 Depression- SW ordered 9. Migraines Date of Delivery: 04/01/2023 Delivered By: Cathryn Eric Delivery Type: Vaginal, Spontaneous Contraception: POPs at PP visit Baby Sex/Weight: Male, 3.32kg Apgars APGARS One minute Five minutes Ten minutes Fifteen minutes Twenty minutes Skin color: 0 1 1 Heart rate: 2 2 2 Grimace: 1 2 2 Muscle tone: 2 2 2 Breathin 1 2 Totals: 6 8 9 Intrapartum complications: None Laceration: vaginal and periurethral Episiotomy: None Placenta: spontaneous Feeding method: breast feeding and bottle feeding and pumping Rh Immune globulin given: not applicable Rubella vaccine given: not applicable Discharge Date: 04/03/23 Follow up: 1 week PP mood check Rx sent for ibuprofen, colace AURELIA Martin 04/03/23 1019 documented in this encounter [facility] 04-03-2023 History of Presen t illness Narrative S: Jolene Burrows is a 22 y.o. s/p PPD#2. Her delivery was uncomplicated. She is doing well today. Baby still in NICU, waiting to hear an update on estimated length of stay. A&O, Ambulating without difficulty, denies dizziness. Eating and drinking fluids appropriately without nausea/ vomiting. Pain well managed. Bleeding is well controlled, denies heavy gushes or passing large clots. Has not had a BM but is passing gas. Urinating without pain. Reports mood is stable and denies symptoms of anxiety/depression. Bonding with . Pt. , baby supplementing in NICU. Has good support and help at home. O: Vitals: 04/02/23 1354 04/02/23 2030 04/03/23 0136 04/03/23 0810 BP: 93/55 (!) 86/43 94/45 98/51 Pulse: 63 77 115 83 Resp: 18 18 18 17 Temp: 36.6 C (97.9 F) 36.4 C (97.5 F) 36.6 C (97.9 F) 37.1 C (98.8 F) TempSrc: Oral Oral Oral Oral SpO2: Weight: Height: Lab Results Component Value Date WBC 6.5 03/31/2023 HGB 10.2 (L) 03/31/2023 HCT 30.4 (L) 03/31/2023 MCV 75 (L) 03/31/2023 PLT 184 03/31/2023 Breasts: soft, nipples sore/ erythematous/ intact; getting established GI: -BM, +flatus : urinating without difficulty Uterus: F/F U/1 Lochia: small rubra lochia without clots Perineum: intact, well approximated and without edema Lower extremities: without edema A/P: Jolene Burrows is a s/p PPD#2 Iron deficiency Anemia Hgb on admit 10.2, EBL 350ml. Continue PO ferrous sulfate at discharge, PNV while Hx of depression Stable on Zoloft 50mg, follows with PCP Plan 1 week PP mood check Progressing As Expected. Contraception: POPs at 4-6 weeks Routine Teaching completed. resources reviewed. Pt has breast pump. SW consulted Warning Signs Handout reviewed, pt instructed on how/when to call. Discharge Home: 04/03/23 Follow up: 1 week in clinic for mood check AURELIA Martin APRN-CNM 04/03/23 1009 PP day : 1 Pt doing well. A&O, Ambulating without difficulty. Denies COSTELLO or dizziness, nausea. SW met with pt today d/t baby in the NICU for low blood sugars. Pt is taking Zoloft 50mg daily and is doing well. Pain well managed. Pt. has good support and help at home. VS: BP Readings from Last 1 Encounters: 04/02/23 103/49 , Pulse Readings from Last 1 Encounters: 04/02/23 62 , Resp Readings from Last 1 Encounters: 04/02/23 18 , Temp Readings from Last 1 Encounters: 04/02/23 36.3 C (97.3 F) (Oral) Breasts soft, nipples intact > has started pumping. Reports she has not gotten any milk/colostrum yet. Encouraged to continue pumping every 3 hours and LC will see pt to assist with plan -BM Urinating without difficulty F/F U/1 Small rubra lochia without clots. Perineum: intact. Without edema. Lower extremities: no edema. A/P: Normal pp day # 1 Progressing As Expected. Contraception: OCP Routine Teaching completed. Warning Signs Handout Given. Continue Routine PP Care. Discharge Home tomorrow AURELIA Redman 04/02/232223 S: Pt is getting more comfortable with epidural ; family at bedside. Pt is having some post epidural late decelerations. Anesthesia in the room, giving pressors to treat low BP. O: BP Readings from Last 1 Encounters: 04/01/23 105/62 , Pulse Readings from Last 1 Encounters: 04/01/23 86 , Resp Readings from Last 1 Encounters: 04/01/23 18 , Temp Readings from Last 1 Encounters: 04/01/23 36.9 C (98.4 F) (Oral) Pitocin at: 4 mu/min FHR 140 baseline, moderate variability, positive accels, decels Late Uterine Activity: regular, every 2-3 minutes per IUPC MVU: 110 Intermittent Cat. 2 tracing, overall reassuring VE: Deferred Application Development Specialist present. A: 22 y.o., at 39w1d weeks Early latent labor. Patient Active Problem List Diagnosis Depression Class 1 obesity due to excess calories in adult S/P tonsillectomy Anemia during in third trimester Primiparity Obesity affecting Recurrent syncope care in second trimester Heart palpitations Family history of heart disease Shortness of breath Low weight gain during , antepartum Migraines Inappropriate sinus tachycardia Elevated glucose tolerance brick tester of spinal muscular atrophy , supervision of first Polyhydramnios in third trimester Polyhydramnios affecting in third trimester Time since rupture: 7 hrs P: -movement encouraged, patient being turned to left side with peanut ball -oral hydration with calories every 1-2 hrs encouraged -continue Pitocin per protocol. -Will recheck SVE in a couple hours or as needed. Continue plan. Expect . PRAVIN Biswas Associated attestation - Cathryn Eric APRN-CNM - 04/01/2023 7:56 PM EST I performed a history and physical examination of the patient with the student SHERIF and discussed management with the student. I reviewed the student's note documented findings and I agree with the assessment and plan. S: Pt feeling more uncomfortable with contractions and is requesting IV pain medication at this time; family at bedside O: BP Readings from Last 1 Encounters: 04/01/23 108/59 , Pulse Readings from Last 1 Encounters: 04/01/23 100 , Resp Readings from Last 1 Encounters: 04/01/23 18 , Temp Readings from Last 1 Encounters: 04/01/23 36.9 C (98.4 F) (Oral) Recent Results (from the past 48 hour(s)) Drug Screen, Urine Collection Time: 03/31/23 7:50 PM Result Value Ref Range Amphetamine/methamphetamine Negative Negative^Negative Barbiturate Screen, Ur Negative Negative^Negative Benzodiazepine Screen, Urine Negative Negative^Negative THC, urine Negative Negative^Negative Cocaine (metabolite) Negative Negative^Negative Opiate Quant, Ur Negative Negative^Negative Phencyclidine Negative Negative^Negative Oxycodone Negative Negative^Negative Methadone Negative Negative^Negative Ecstasy Negative Negative^Negative Type and screen Collection Time: 03/31/23 9:30 PM Result Value Ref Range ABO A RH Positive Antibody Screen Negative ABO Rh Repeat Collection Time: 03/31/23 9:30 PM Result Value Ref Range ABO A RH Positive Syphilis Total(Unknown Syphilis Status) Collection Time: 03/31/23 10:05 PM Result Value Ref Range Syphilis Total <0.2 0.0 - 0.8 AI CBC without diff Collection Time: 03/31/23 10:05 PM Result Value Ref Range White Blood Cells 6.5 4.0 - 11.0 X10E9/L RBC count 4.08 3.80 - 5.20 X10E12/L Hemoglobin 10.2 (L) 11.7 - 15.5 g/dL Hematocrit 30.4 (L) 35 - 47 % MCV 75 (L) 80 - 100 fL MCH 25.0 (L) 27 - 34 pg MCHC 33.5 32 - 36 g/dL RDW 14.4 11.5 - 15.0 % Platelets 184 150 - 450 X10E9/L MPV 9.7 7 - 12 fL ABO Rh Repeat Collection Time: 04/01/23 5:00 AM Result Value Ref Range ABO A RH Positive Pitocin at: 4 mu/min FHR 120 baseline, moderate variability, positive accels, decels Absent Uterine Activity: regular, every 1-2 minutes per IUPC MVU: 152 Cat. 1 tracing VE: /0 Application Development Specialist present. A: 22 y.o., at 39w1d weeks Early latent labor. and tachysystole. Patient Active Problem List Diagnosis Depression Class 1 obesity due to excess calories in adult S/P tonsillectomy Anemia during in third trimester Primiparity Obesity affecting Recurrent syncope care in second trimester Heart palpitations Family history of heart disease Shortness of breath Low weight gain during , antepartum Migraines Inappropriate sinus tachycardia Elevated glucose tolerance brick tester of spinal muscular atrophy , supervision of first Polyhydramnios in third trimester Polyhydramnios affecting in third trimester P -movement encouraged -oral hydration with calories every 1-2 hrs encouraged Pitocin rate cut in half, LR bolus given for tachysystole. Continue plan. Expect . Associated attestation - Cathryn Eric APRN-CNM - 04/01/2023 5:00 PM EST I performed a history and physical examination of the patient with the student SHERIF and discussed management with the student. I reviewed the student's note documented findings and I agree with the assessment and plan. AROM: Procedure explained to patient and agrees with plan. Discussed benefits, risks of use of internal monitors, amnioinfusion, induction or augmentation medications along with medications used to slow down or space out contractions if typical interventions do not work and fetus is not tolerating labor pattern. Pt states she understands and agrees with plan. S: Pt comfortable at this time, feeling contractions mildly and has been able to get some rest. O: BP Readings from Last 1 Encounters: 04/01/23 93/68 , Pulse Readings from Last 1 Encounters: 04/01/23 96 , Resp Readings from Last 1 Encounters: 04/01/23 18 , Temp Readings from Last 1 Encounters: 04/01/23 36.8 C (98.2 F) (Oral) Recent Results (from the past 48 hour(s)) Drug Screen, Urine Collection Time: 03/31/23 7:50 PM Result Value Ref Range Amphetamine/methamphetamine Negative Negative^Negative Barbiturate Screen, Ur Negative Negative^Negative Benzodiazepine Screen, Urine Negative Negative^Negative THC, urine Negative Negative^Negative Cocaine (metabolite) Negative Negative^Negative Opiate Quant, Ur Negative Negative^Negative Phencyclidine Negative Negative^Negative Oxycodone Negative Negative^Negative Methadone Negative Negative^Negative Ecstasy Negative Negative^Negative Type and screen Collection Time: 03/31/23 9:30 PM Result Value Ref Range ABO A RH Positive Antibody Screen Negative ABO Rh Repeat Collection Time: 03/31/23 9:30 PM Result Value Ref Range ABO A RH Positive Syphilis Total(Unknown Syphilis Status) Collection Time: 03/31/23 10:05 PM Result Value Ref Range Syphilis Total <0.2 0.0 - 0.8 AI CBC without diff Collection Time: 03/31/23 10:05 PM Result Value Ref Range White Blood Cells 6.5 4.0 - 11.0 X10E9/L RBC count 4.08 3.80 - 5.20 X10E12/L Hemoglobin 10.2 (L) 11.7 - 15.5 g/dL Hematocrit 30.4 (L) 35 - 47 % MCV 75 (L) 80 - 100 fL MCH 25.0 (L) 27 - 34 pg MCHC 33.5 32 - 36 g/dL RDW 14.4 11.5 - 15.0 % Platelets 184 150 - 450 X10E9/L MPV 9.7 7 - 12 fL ABO Rh Repeat Collection Time: 04/01/23 5:00 AM Result Value Ref Range ABO A RH Positive FHR 145 baseline, moderate variability, positive accels, decels Absent Uterine Activity: regular, every 3-5 minutes per toco Category 1 tracing VE: 4/80/-1, Vertex AROM'd at 1233 for Small amount of Clear, Odorless fluid. IUPC placed and is functioning at this time. A: 22 y.o., at 39w1d weeks. Patient Active Problem List Diagnosis Depression Class 1 obesity due to excess calories in adult S/P tonsillectomy Anemia during in third trimester Primiparity Obesity affecting Recurrent syncope care in second trimester Heart palpitations Family history of heart disease Shortness of breath Low weight gain during , antepartum Migraines Inappropriate sinus tachycardia Elevated glucose tolerance brick tester of spinal muscular atrophy , supervision of first Polyhydramnios in third trimester Polyhydramnios affecting in third trimester P: -Continue Pitocin per protocol -movement encouraged, encouraged upright positioning/standing/laying on side of bed -Pain interventions upon request -oral hydration with calories every 1-2 hrs encouraged Continue plan. Expect . Associated attestation - Cathryn Eric APRN-CNM - 04/01/2023 12:56 PM EST I performed a history and physical examination of the patient with the student SHERIF and discussed management with the student. I reviewed the student's note documented findings and I agree with the assessment and plan. S: Pt comfortable at this time, states she is feeling her contractions mildly; family at bedside and supportive O: BP Readings from Last 1 Encounters: 04/01/23 101/53 , Pulse Readings from Last 1 Encounters: 04/01/23 95 , Resp Readings from Last 1 Encounters: 04/01/23 16 , Temp Readings from Last 1 Encounters: 04/01/23 36.8 C (98.2 F) (Oral) Recent Results (from the past 48 hour(s)) Drug Screen, Urine Collection Time: 03/31/23 7:50 PM Result Value Ref Range Amphetamine/methamphetamine Negative Negative^Negative Barbiturate Screen, Ur Negative Negative^Negative Benzodiazepine Screen, Urine Negative Negative^Negative THC, urine Negative Negative^Negative Cocaine (metabolite) Negative Negative^Negative Opiate Quant, Ur Negative Negative^Negative Phencyclidine Negative Negative^Negative Oxycodone Negative Negative^Negative Methadone Negative Negative^Negative Ecstasy Negative Negative^Negative Type and screen Collection Time: 03/31/23 9:30 PM Result Value Ref Range ABO A RH Positive Antibody Screen Negative ABO Rh Repeat Collection Time: 03/31/23 9:30 PM Result Value Ref Range ABO A RH Positive Syphilis Total(Unknown Syphilis Status) Collection Time: 03/31/23 10:05 PM Result Value Ref Range Syphilis Total <0.2 0.0 - 0.8 AI CBC without diff Collection Time: 03/31/23 10:05 PM Result Value Ref Range White Blood Cells 6.5 4.0 - 11.0 X10E9/L RBC count 4.08 3.80 - 5.20 X10E12/L Hemoglobin 10.2 (L) 11.7 - 15.5 g/dL Hematocrit 30.4 (L) 35 - 47 % MCV 75 (L) 80 - 100 fL MCH 25.0 (L) 27 - 34 pg MCHC 33.5 32 - 36 g/dL RDW 14.4 11.5 - 15.0 % Platelets 184 150 - 450 X10E9/L MPV 9.7 7 - 12 fL ABO Rh Repeat Collection Time: 04/01/23 5:00 AM Result Value Ref Range ABO A RH Positive Pitocin at: 17 mu/min FHR 120 baseline, moderate variability, positive accels, decels Absent Uterine Activity: irregular, every 3-8 minutes per toco Cat. 1 tracing VE: Deferred A: 22 y.o., at 39w1d weeks Early latent labor. Patient Active Problem List Diagnosis Depression Class 1 obesity due to excess calories in adult S/P tonsillectomy Anemia during in third trimester Primiparity Obesity affecting Recurrent syncope care in second trimester Heart palpitations Family history of heart disease Shortness of breath Low weight gain during , antepartum Migraines Inappropriate sinus tachycardia Elevated glucose tolerance brick tester of spinal muscular atrophy , supervision of first Polyhydramnios in third trimester Polyhydramnios affecting in third trimester P: -Continue Pitocin per protocol -movement encouraged, encouraged upright positioning/standing/laying on side of bed -Pain interventions upon request -oral hydration with calories every 1-2 hrs encouraged Continue plan. Expect . Associated attestation - Cathryn Eric APRN-CNM - 04/01/2023 11:48 AM EST I performed a history and physical examination of the patient with the student SHERIF and discussed management with the student. I reviewed the student's note documented findings and I agree with the assessment and plan. S: Pt comfortable; family at bedside O: BP Readings from Last 1 Encounters: 04/01/23 102/58 , Pulse Readings from Last 1 Encounters: 04/01/23 83 , Resp Readings from Last 1 Encounters: 04/01/23 18 , Temp Readings from Last 1 Encounters: 04/01/23 37 C (98.6 F) (Oral) Pitocin @ 14mu FHR 120 baseline, moderate variability, positive accels, decels Absent Uterine Activity: irregular per toco VE: 480/-1 A: 22 y.o., at 39w1d weeks Not in labor. MIOL for poly Cat. 1 tracing P: Continue plan. Expect . AURELIA Carrillo 04/01/23 0552 S: Pt comfortable with CTX; family at bedside O: BP Readings from Last 1 Encounters: 04/01/23 115/75 , Pulse Readings from Last 1 Encounters: 04/01/23 83 , Resp Readings from Last 1 Encounters: 03/31/23 16 , Temp Readings from Last 1 Encounters: 03/31/23 36.8 C (98.2 F) (Oral) Pitocin @ 7mu FHR 120 baseline, moderate variability, positive accels, decels Absent Uterine Activity: irregular, every 2-4 minutes per toco VE: deferred A: 22 y.o., at 39w1d weeks MIOL for poly, Not in labor. Cat. 1 tracing P: Continue plan. Expect . AURELIA Carrillo 04/01/23 0238 documented in this encounter [facility] 04-03-2023 Plan of care note Problem: Pain Goal: Patient goal is pain score less than 4, able to rest, and participant in treatment plan as appropriate Description: INTERVENTIONS: 1. Encourage patient or legal regional sales representative to report early pain and ask for pain medicine when needed 2. Assess pain using appropriate pain scale and include the scale used when documenting 3. Administer analgesics based on type and severity of pain and evaluate response within appropriate time frame 4. Implement non-pharmacological measures as appropriate and evaluate response 5. Consider cultural and social influences on pain and pain management 6. Notify LIP if interventions ineffective or patient reports new pain 7. Monitor vital signs including pulse ox, end-tidal CO2 based on pain intervention 8. Reassess pain per policy 9. Teach patient or legal regional sales representative interventions for comforting Outcome: Progressing Note: Evaluation of progress towards goal: Patient verbalizes pain maintained with pain medication ordered. Problem: Safety Goal: Patient will be injury free during hospitalization Description: INTERVENTIONS: 1. Assess patient's risk for falls and implement fall prevention plan of care per policy 2. Provide and maintain a safe environment 3. Proper use of double Identifiers 4. Medication administration using the 5 rights 5. Hand hygiene 6. Specimens are labeled at the bedside 7. Instruct patient/ patient regional sales representative about use of safety devices 8. Include patient/ patient regional sales representative in decisions related to safety Outcome: Progressing Note: Evaluation of progress towards goal: Safety maintained. Problem: Infection Goal: Absence of infection during hospitalization Description: Interventions: 1. Assess and monitor for signs and symptoms of infection 2. Monitor lab/diagnostic results 3. Monitor all insertion sites i.e., indwelling lines, tubes and drains 4. Monitor endotracheal (as able) and nasal secretions for changes in amount and color 5. Administer medications as ordered 6. Instruct and encourage patient and family to use good hand hygiene technique 7. Identify and instruct patient/patient regional sales representative in use of appropriate isolation precautions for identified infection/symptoms 8. Provide and discuss with patient/patient regional sales representative on educational MDRO sheet 9. Encourage and monitor nutritional status daily and consult commissary superintendent if indicated 10. Implement neutropenic guidelines as needed 11. Review exposure to history of communicable disease and recent travel history on admission 12. Encourage annual influenza vaccine 13. Encourage pneumonia vaccine Outcome: Progressing Note: Evaluation of progress towards goal: No signs/symptoms of infection noted. Please see vitals in flowsheet. Problem: Knowledge Deficit Goal: Patient/patient regional sales representative demonstrates understanding of disease process, treatment plan, medications, and discharge instructions Description: INTERVENTIONS 1. Complete learning assessment and assess knowledge base 2. Provide teaching at level of understanding 3. Provide teaching via preferred learning method(s) Outcome: Progressing Note: Evaluation of progress towards goal: Patient voices and demonstrates understanding of self care. Asks appropriate questions as they arise. Problem: Discharge Planning Goal: Discharge to post-acute care, other facility, or home with appropriate resources Description: Patient's goal is: INTERVENTIONS 1. Conduct assessment to determine patient/family and health care team treatment goals, and need for post-acute services based on payer coverage, community resources, and patient preferences, and barriers to discharge 2. Coordinate with Social work, Care Navigation, and Utilization Review to arrange appropriate level of services according to patient's needs based on patient preference and payer coverage in collaboration with the physician and health care team 3. Address psychosocial, clinical, and financial barriers to discharge as identified in assessment in conjunction with the patient/family and health care team 4. Consult appropriate ancillary services (i.e.. PT/OT/ST, etc) as needed 5. Communicate with and update the patient/family, physician, and health care team regarding progress on the discharge plan 6. Identify discharge learning needs (meds, wound care, etc). 7. Arrange for needed discharge transportation as appropriate Outcome: Progressing Note: Evaluation of progress towards goal: Anticipate discharge home with instructions, voices understanding of instructions given. Problem: Low Risk Fall Score Description: Jules Fall Score of 0 - 24 or indicated by [facility] Assessment Goal: Patient should be free from fall Description: Interventions: 1. [place] to environment 2. Hourly rounds addressing the 4 P's (Pain, Positioning, Possessions, Potty) 3. Clear area of hazards (spills, clutter, electrical cords, unnecessary equipment) 4. Place equipment (bed & TV controls, call light, phone, urinal) within reach 5. Encourage patient to wear glasses and hearing aides as appropriate 6. Maintain bed in lowest position 7. Lock wheels on bed/wheelchair 8. Provide adequate lighting, including night light 9. Assess need for additional bedding, food/fluids, pain med's prior to sleep/routinely 10. Provide gripper slippers or personal non-skid footwear 11. Teach patient and patient regional sales representative to maintain environment for safety and engage in all aspects of fall prevention program Outcome: Progressing Note: Evaluation of progress towards goal: pt will remain free from fall, see cares and safety Problem: Vaginal Delivery - Recovery and Goal: Patient vitals and physical assessment findings are stable following delivery Description: Edema will be absent or minimal INTERVENTIONS 1. Vital signs - vaginal delivery - recovery & 2. Assess fundus - vaginal delivery - recovery and 3. Do lochia check - vaginal delivery - recovery and Outcome: Progressing Note: Evaluation of progress towards goal: Vitals are stable and are monitored q6 hours Goal: Perineum intact without discharge or hematoma Description: INTERVENTIONS 1. Ice to perineum 2. Provide pericare 3. Sitz bath PRN Outcome: Progressing Note: Evaluation of progress towards goal: perineum intact without discharge or hematoma Goal: Ambulates independently Description: INTERVENTION 1. Ambulate Outcome: Progressing Note: Evaluation of progress towards goal: mom is up at [place] and ambulates independently Additional Comments: [facility] 04-03-2023 Plan of care note Problem: Pain Goal: Patient goal is pain score less than 4, able to rest, and participant in treatment plan as appropriate Description: INTERVENTIONS: 1. Encourage patient or legal regional sales representative to report early pain and ask for pain medicine when needed 2. Assess pain using appropriate pain scale and include the scale used when documenting 3. Administer analgesics based on type and severity of pain and evaluate response within appropriate time frame 4. Implement non-pharmacological measures as appropriate and evaluate response 5. Consider cultural and social influences on pain and pain management 6. Notify LIP if interventions ineffective or patient reports new pain 7. Monitor vital signs including pulse ox, end-tidal CO2 based on pain intervention 8. Reassess pain per policy 9. Teach patient or legal regional sales representative interventions for comforting Outcome: Progressing Note: Evaluation of progress towards goal: Patient verbalizes tolerable level of pain at this time. Pain medications will be given as needed. Problem: Safety Goal: Patient will be injury free during hospitalization Description: INTERVENTIONS: 1. Assess patient's risk for falls and implement fall prevention plan of care per policy 2. Provide and maintain a safe environment 3. Proper use of double Identifiers 4. Medication administration using the 5 rights 5. Hand hygiene 6. Specimens are labeled at the bedside 7. Instruct patient/ patient regional sales representative about use of safety devices 8. Include patient/ patient regional sales representative in decisions related to safety Outcome: Progressing Note: Evaluation of progress towards goal: Safe environment maintained. Medications administered using 5 rights. Fall prevention plan implemented as needed. Problem: Infection Goal: Absence of infection during hospitalization Description: Interventions: 1. Assess and monitor for signs and symptoms of infection 2. Monitor lab/diagnostic results 3. Monitor all insertion sites i.e., indwelling lines, tubes and drains 4. Monitor endotracheal (as able) and nasal secretions for changes in amount and color 5. Administer medications as ordered 6. Instruct and encourage patient and family to use good hand hygiene technique 7. Identify and instruct patient/patient regional sales representative in use of appropriate isolation precautions for identified infection/symptoms 8. Provide and discuss with patient/patient regional sales representative on educational MDRO sheet 9. Encourage and monitor nutritional status daily and consult commissary superintendent if indicated 10. Implement neutropenic guidelines as needed 11. Review exposure to history of communicable disease and recent travel history on admission 12. Encourage annual influenza vaccine 13. Encourage pneumonia vaccine Outcome: Progressing Note: Evaluation of progress towards goal: Patient is free from signs and symptoms of infection. Problem: Knowledge Deficit Goal: Patient/patient regional sales representative demonstrates understanding of disease process, treatment plan, medications, and discharge instructions Description: INTERVENTIONS 1. Complete learning assessment and assess knowledge base 2. Provide teaching at level of understanding 3. Provide teaching via preferred learning method(s) Outcome: Progressing Note: Evaluation of progress towards goal: Teaching provided as needed at patient's level of understanding. Problem: Discharge Planning Goal: Discharge to post-acute care, other facility, or home with appropriate resources Description: Patient's goal is: INTERVENTIONS 1. Conduct assessment to determine patient/family and health care team treatment goals, and need for post-acute services based on payer coverage, community resources, and patient preferences, and barriers to discharge 2. Coordinate with Social work, Care Navigation, and Utilization Review to arrange appropriate level of services according to patient's needs based on patient preference and payer coverage in collaboration with the physician and health care team 3. Address psychosocial, clinical, and financial barriers to discharge as identified in assessment in conjunction with the patient/family and health care team 4. Consult appropriate ancillary services (i.e.. PT/OT/ST, etc) as needed 5. Communicate with and update the patient/family, physician, and health care team regarding progress on the discharge plan 6. Identify discharge learning needs (meds, wound care, etc). 7. Arrange for needed discharge transportation as appropriate Outcome: Progressing Note: Evaluation of progress towards goal: Teaching provided as needed at patient's level of understanding. Problem: Low Risk Fall Score Description: Jules Fall Score of 0 - 24 or indicated by [facility] Assessment Goal: Patient should be free from fall Description: Interventions: 1. Cr[place]all to environment 2. Hourly rounds addressing the 4 P's (Pain, Positioning, Possessions, Potty) 3. Clear area of hazards (spills, clutter, electrical cords, unnecessary equipment) 4. Place equipment (bed & TV controls, call light, phone, urinal) within reach 5. Encourage patient to wear glasses and hearing aides as appropriate 6. Maintain bed in lowest position 7. Lock wheels on bed/wheelchair 8. Provide adequate lighting, including night light 9. Assess need for additional bedding, food/fluids, pain med's prior to sleep/routinely 10. Provide gripper slippers or personal non-skid footwear 11. Teach patient and patient regional sales representative to maintain environment for safety and engage in all aspects of fall prevention program Outcome: Progressing Note: Evaluation of progress towards goal: Patient understands fall prevention plan. Problem: Moderate - High Risk Fall Score Description: Jules Fall Score of =/> 25 or indicated by [facility] Assessment Goal: Patient should be free from fall Description: Interventions: 1. Cr[place]all to environment 2. Hourly rounds addressing the 4 P's (Pain, Positioning, Possessions, Potty) 3. Clear area of hazards (spills, clutter, electrical cords, unnecessary equipment) 4. Place equipment (bed & TV controls, call light, phone, urinal) within reach 5. Encourage patient to wear glasses and hearing aides as appropriate 6. Maintain bed in lowest position 7. Lock wheels on bed/wheelchair 8. Provide adequate lighting, including night light 9. Assess need for additional bedding, food/fluids, pain med's prior to sleep/routinely 10. Provide gripper slippers or personal non-skid footwear 11. Teach patient and patient regional sales representative to maintain environment for safety and engage in all aspects of fall prevention program 12. Remind patient to call for help before getting out of bed 13. Initiate bed/chair/exit alarms supportive devices as appropriate, (chair wedge, no-skid floor mat, raised edge mattress, hip protectors) 14. Locate patient bed assignment for optimal visualization 15. Evaluate and identify Safe Patient Handling Equipment needs 16. Provide supervision when out of bed or chair 17. Utilize gait belt as needed to assist with ambulation 18. Place adaptive equipment (cane, walker) within reach 19. Request patient regional sales representative bring adaptive equipment/mobility aids from home or obtain and provide as needed 20. Consult pharmacy regarding effects of med's affecting mobility, cognition, and alternatives 21. Obtain physician order for PT if risk factors associated with mobility are present 22. Obtain physician order for OT as appropriate 23. Utilize diversional activities 24. Educate patient and patient regional sales representative how to maintain a safe environment during visitation times (notify nurse prior to leaving bedside) 25. Consider appropriateness of medical or non-medical assistant 26. Set up voiding schedule as appropriate (every 2 hours) Outcome: Progressing Note: Evaluation of progress towards goal: Patient understands fall prevention plan. Problem: Vaginal Delivery - Recovery and Goal: Patient vitals and physical assessment findings are stable following delivery Description: Edema will be absent or minimal INTERVENTIONS 1. Vital signs - vaginal delivery - recovery & 2. Assess fundus - vaginal delivery - recovery and 3. Do lochia check - vaginal delivery - recovery and Outcome: Progressing Note: Evaluation of progress towards goal: Vitals and physical assessment stable Goal: Perineum intact without discharge or hematoma Description: INTERVENTIONS 1. Ice to perineum 2. Provide pericare 3. Sitz bath PRN Outcome: Progressing Note: Evaluation of progress towards goal: Perineum intact Goal: Ambulates independently Description: INTERVENTION 1. Ambulate Outcome: Progressing Note: Evaluation of progress towards goal: Ambulates well Problem: Optimal Supply and Comfortable Goal: Adequate feeds Description: INTERVENTIONS 1. Offer breast at least 8-12 times in first 24 hours 2. After first day, baby should feed at least 8-12 times in 24 hours. Wake baby at least every 3 hours to feed 3. Offer both breasts 4. Keep baby actively feeding at breast by using breast compressions or stimulating baby. Undress baby for feeds Outcome: Progressing Note: Evaluation of progress towards goal: Adequate feeds Additional Comments: [facility] 04-02-2023 Progress note Formatting of t his note might be different from the original. DISCHARGE PLANNING NOTE Note: copied from infant chart Baby boy: Flaquito FARAH: Jolene FOB: Thuan Cerrato attending rounds daily. MOB is a 22 year old, who delivered a baby boy at 39 weeks, weighing 3320 g. Apgars were 6,8,9. TOX urine drug screen negative. SW met parents and maternal grandparents at bedside. SW introduced self and explained role. Discussed NICU. Provided information for NICU pantry. Stated have good support within their friends and family to help with NICU stay and infant at home. Parents stated they have everything they need for when baby is discharged, including car seat and safe sleep. Parents stated they are doing well financially and have reliable transportation, housing, and food. Discussed [facility] - parents will utilize if stays longer than expected. Will get connected to WIC. No questions regarding insurance. FOB requesting work letter for delivery and NICU admission - provided. Parents declined further assistance at this time. ISABELLA discussed PPD with MOB. MOB stated she is feeling doing good . Hx of depression, stable. Currently connected with PCP for management and taking Zoloft. Mom feels comfortable with s/s for PPD. SW provided PPD education sheet. Further resources are available if needed. SW provided family with a book from [employer] book club, a developmental heart, education on parent groups, PPD education, and a NICU packet. SW will follow as needed. [facility] 04-02-2023 Plan of care note Problem: Pain Goal: Patient goal is pain score less than 4, able to rest, and participant in treatment plan as appropriate Description: INTERVENTIONS: 1. Encourage patient or legal regional sales representative to report early pain and ask for pain medicine when needed 2. Assess pain using appropriate pain scale and include the scale used when documenting 3. Administer analgesics based on type and severity of pain and evaluate response within appropriate time frame 4. Implement non-pharmacological measures as appropriate and evaluate response 5. Consider cultural and social influences on pain and pain management 6. Notify LIP if interventions ineffective or patient reports new pain 7. Monitor vital signs including pulse ox, end-tidal CO2 based on pain intervention 8. Reassess pain per policy 9. Teach patient or legal regional sales representative interventions for comforting Outcome: Progressing Note: Evaluation of progress towards goal: Patient verbalizes pain maintained with pain medication ordered. Problem: Safety Goal: Patient will be injury free during hospitalization Description: INTERVENTIONS: 1. Assess patient's risk for falls and implement fall prevention plan of care per policy 2. Provide and maintain a safe environment 3. Proper use of double Identifiers 4. Medication administration using the 5 rights 5. Hand hygiene 6. Specimens are labeled at the bedside 7. Instruct patient/ patient regional sales representative about use of safety devices 8. Include patient/ patient regional sales representative in decisions related to safety Outcome: Progressing Note: Evaluation of progress towards goal: Safety maintained. Problem: Infection Goal: Absence of infection during hospitalization Description: Interventions: 1. Assess and monitor for signs and symptoms of infection 2. Monitor lab/diagnostic results 3. Monitor all insertion sites i.e., indwelling lines, tubes and drains 4. Monitor endotracheal (as able) and nasal secretions for changes in amount and color 5. Administer medications as ordered 6. Instruct and encourage patient and family to use good hand hygiene technique 7. Identify and instruct patient/patient regional sales representative in use of appropriate isolation precautions for identified infection/symptoms 8. Provide and discuss with patient/patient regional sales representative on educational MDRO sheet 9. Encourage and monitor nutritional status daily and consult commissary superintendent if indicated 10. Implement neutropenic guidelines as needed 11. Review exposure to history of communicable disease and recent travel history on admission 12. Encourage annual influenza vaccine 13. Encourage pneumonia vaccine Outcome: Progressing Note: Evaluation of progress towards goal: No signs/symptoms of infection noted. Please see vitals in flowsheet. Problem: Knowledge Deficit Goal: Patient/patient regional sales representative demonstrates understanding of disease process, treatment plan, medications, and discharge instructions Description: INTERVENTIONS 1. Complete learning assessment and assess knowledge base 2. Provide teaching at level of understanding 3. Provide teaching via preferred learning method(s) Outcome: Progressing Note: Evaluation of progress towards goal: Patient voices and demonstrates understanding of self care. Asks appropriate questions as they arise. Problem: Discharge Planning Goal: Discharge to post-acute care, other facility, or home with appropriate resources Description: Patient's goal is: INTERVENTIONS 1. Conduct assessment to determine patient/family and health care team treatment goals, and need for post-acute services based on payer coverage, community resources, and patient preferences, and barriers to discharge 2. Coordinate with Social work, Care Navigation, and Utilization Review to arrange appropriate level of services according to patient's needs based on patient preference and payer coverage in collaboration with the physician and health care team 3. Address psychosocial, clinical, and financial barriers to discharge as identified in assessment in conjunction with the patient/family and health care team 4. Consult appropriate ancillary services (i.e.. PT/OT/ST, etc) as needed 5. Communicate with and update the patient/family, physician, and health care team regarding progress on the discharge plan 6. Identify discharge learning needs (meds, wound care, etc). 7. Arrange for needed discharge transportation as appropriate Outcome: Progressing Note: Evaluation of progress towards goal: Anticipate discharge home with instructions, voices understanding of instructions given. Problem: Low Risk Fall Score Description: Jules Fall Score of 0 - 24 or indicated by [facility] Assessment Goal: Patient should be free from fall Description: Interventions: 1. [place] to environment 2. Hourly rounds addressing the 4 P's (Pain, Positioning, Possessions, Potty) 3. Clear area of hazards (spills, clutter, electrical cords, unnecessary equipment) 4. Place equipment (bed & TV controls, call light, phone, urinal) within reach 5. Encourage patient to wear glasses and hearing aides as appropriate 6. Maintain bed in lowest position 7. Lock wheels on bed/wheelchair 8. Provide adequate lighting, including night light 9. Assess need for additional bedding, food/fluids, pain med's prior to sleep/routinely 10. Provide gripper slippers or personal non-skid footwear 11. Teach patient and patient regional sales representative to maintain environment for safety and engage in all aspects of fall prevention program Outcome: Progressing Note: Evaluation of progress towards goal: pt will remain free from fall, see cares and safety Problem: Vaginal Delivery - Recovery and Goal: Patient vitals and physical assessment findings are stable following delivery Description: Edema will be absent or minimal INTERVENTIONS 1. Vital signs - vaginal delivery - recovery & 2. Assess fundus - vaginal delivery - recovery and 3. Do lochia check - vaginal delivery - recovery and Outcome: Progressing Note: Evaluation of progress towards goal: Vitals are stable and are monitored q6 hours ' Goal: Perineum intact without discharge or hematoma Description: INTERVENTIONS 1. Ice to perineum 2. Provide pericare 3. Sitz bath PRN Outcome: Progressing Note: Evaluation of progress towards goal: perineum intact without discharge or hematoma Goal: Ambulates independently Description: INTERVENTION 1. Ambulate Outcome: Progressing Note: Evaluation of progress towards goal: mom is up at [place] and ambulates independently Problem: Optimal Supply and Comfortable Goal: Adequate feeds Description: INTERVENTIONS 1. Offer breast at least 8-12 times in first 24 hours 2. After first day, baby should feed at least 8-12 times in 24 hours. Wake baby at least every 3 hours to feed 3. Offer both breasts 4. Keep baby actively feeding at breast by using breast compressions or stimulating baby. Undress baby for feeds Outcome: Progressing Note: Evaluation of progress towards goal: pumping for in nicu Additional Comments: [facility] 04-02-2023 Plan of care note Problem: Pain Goal: Patient goal is pain score less than 4, able to rest, and participant in treatment plan as appropriate Description: INTERVENTIONS: 1. Encourage patient or legal regional sales representative to report early pain and ask for pain medicine when needed 2. Assess pain using appropriate pain scale and include the scale used when documenting 3. Administer analgesics based on type and severity of pain and evaluate response within appropriate time frame 4. Implement non-pharmacological measures as appropriate and evaluate response 5. Consider cultural and social influences on pain and pain management 6. Notify LIP if interventions ineffective or patient reports new pain 7. Monitor vital signs including pulse ox, end-tidal CO2 based on pain intervention 8. Reassess pain per policy 9. Teach patient or legal regional sales representative interventions for comforting Outcome: Progressing Note: Evaluation of progress towards goal: Pain managed well without medications at this time. Patient can verbalizes pain and acceptable pain level. Problem: Safety Goal: Patient will be injury free during hospitalization Description: INTERVENTIONS: 1. Assess patient's risk for falls and implement fall prevention plan of care per policy 2. Provide and maintain a safe environment 3. Proper use of double Identifiers 4. Medication administration using the 5 rights 5. Hand hygiene 6. Specimens are labeled at the bedside 7. Instruct patient/ patient regional sales representative about use of safety devices 8. Include patient/ patient regional sales representative in decisions related to safety Outcome: Progressing Note: Evaluation of progress towards goal: Pt remains injury free; precautions followed. Call light and personal items within reach. Support person and at bedside. Patient aware of own limitations. Problem: Infection Goal: Absence of infection during hospitalization Description: Interventions: 1. Assess and monitor for signs and symptoms of infection 2. Monitor lab/diagnostic results 3. Monitor all insertion sites i.e., indwelling lines, tubes and drains 4. Monitor endotracheal (as able) and nasal secretions for changes in amount and color 5. Administer medications as ordered 6. Instruct and encourage patient and family to use good hand hygiene technique 7. Identify and instruct patient/patient regional sales representative in use of appropriate isolation precautions for identified infection/symptoms 8. Provide and discuss with patient/patient regional sales representative on educational MDRO sheet 9. Encourage and monitor nutritional status daily and consult commissary superintendent if indicated 10. Implement neutropenic guidelines as needed 11. Review exposure to history of communicable disease and recent travel history on admission 12. Encourage annual influenza vaccine 13. Encourage pneumonia vaccine Outcome: Progressing Note: Evaluation of progress towards goal: No signs or symptoms of infection present at this time. Vitals signs monitored Q6. Patient and environment monitored for risk factors leading to infection. Problem: Knowledge Deficit Goal: Patient/patient regional sales representative demonstrates understanding of disease process, treatment plan, medications, and discharge instructions Description: INTERVENTIONS 1. Complete learning assessment and assess knowledge base 2. Provide teaching at level of understanding 3. Provide teaching via preferred learning method(s) Outcome: Progressing Note: Evaluation of progress towards goal: Discharge interventions ongoing, education provided to patient as needed. No questions at this time. Problem: Discharge Planning Goal: Discharge to post-acute care, other facility, or home with appropriate resources Description: Patient's goal is: INTERVENTIONS 1. Conduct assessment to determine patient/family and health care team treatment goals, and need for post-acute services based on payer coverage, community resources, and patient preferences, and barriers to discharge 2. Coordinate with Social work, Care Navigation, and Utilization Review to arrange appropriate level of services according to patient's needs based on patient preference and payer coverage in collaboration with the physician and health care team 3. Address psychosocial, clinical, and financial barriers to discharge as identified in assessment in conjunction with the patient/family and health care team 4. Consult appropriate ancillary services (i.e.. PT/OT/ST, etc) as needed 5. Communicate with and update the patient/family, physician, and health care team regarding progress on the discharge plan 6. Identify discharge learning needs (meds, wound care, etc). 7. Arrange for needed discharge transportation as appropriate Outcome: Progressing Note: Evaluation of progress towards goal: Discharge planning ongoing. Anticipate discharge on 04/03/2023 Problem: Low Risk Fall Score Description: Jules Fall Score of 0 - 24 or indicated by [facility] Assessment Goal: Patient should be free from fall Description: Interventions: 1. [place] to environment 2. Hourly rounds addressing the 4 P's (Pain, Positioning, Possessions, Potty) 3. Clear area of hazards (spills, clutter, electrical cords, unnecessary equipment) 4. Place equipment (bed & TV controls, call light, phone, urinal) within reach 5. Encourage patient to wear glasses and hearing aides as appropriate 6. Maintain bed in lowest position 7. Lock wheels on bed/wheelchair 8. Provide adequate lighting, including night light 9. Assess need for additional bedding, food/fluids, pain med's prior to sleep/routinely 10. Provide gripper slippers or personal non-skid footwear 11. Teach patient and patient regional sales representative to maintain environment for safety and engage in all aspects of fall prevention program Outcome: Progressing Note: Evaluation of progress towards goal: Pt remains injury free; precautions followed. Call light and personal items within reach. Support person and at bedside. Patient aware of own limitations. Problem: Moderate - High Risk Fall Score Description: Jules Fall Score of =/> 25 or indicated by [facility] Assessment Goal: Patient should be free from fall Description: Interventions: 1. [place] to environment 2. Hourly rounds addressing the 4 P's (Pain, Positioning, Possessions, Potty) 3. Clear area of hazards (spills, clutter, electrical cords, unnecessary equipment) 4. Place equipment (bed & TV controls, call light, phone, urinal) within reach 5. Encourage patient to wear glasses and hearing aides as appropriate 6. Maintain bed in lowest position 7. Lock wheels on bed/wheelchair 8. Provide adequate lighting, including night light 9. Assess need for additional bedding, food/fluids, pain med's prior to sleep/routinely 10. Provide gripper slippers or personal non-skid footwear 11. Teach patient and patient regional sales representative to maintain environment for safety and engage in all aspects of fall prevention program 12. Remind patient to call for help before getting out of bed 13. Initiate bed/chair/exit alarms supportive devices as appropriate, (chair wedge, no-skid floor mat, raised edge mattress, hip protectors) 14. Locate patient bed assignment for optimal visualization 15. Evaluate and identify Safe Patient Handling Equipment needs 16. Provide supervision when out of bed or chair 17. Utilize gait belt as needed to assist with ambulation 18. Place adaptive equipment (cane, walker) within reach 19. Request patient regional sales representative bring adaptive equipment/mobility aids from home or obtain and provide as needed 20. Consult pharmacy regarding effects of med's affecting mobility, cognition, and alternatives 21. Obtain physician order for PT if risk factors associated with mobility are present 22. Obtain physician order for OT as appropriate 23. Utilize diversional activities 24. Educate patient and patient regional sales representative how to maintain a safe environment during visitation times (notify nurse prior to leaving bedside) 25. Consider appropriateness of medical or non-medical assistant 26. Set up voiding schedule as appropriate (every 2 hours) Outcome: Progressing Note: Evaluation of progress towards goal: Pt remains injury free; precautions followed. Call light and personal items within reach. Support person and at bedside. Patient aware of own limitations. Problem: Vaginal Delivery - Recovery and Goal: Patient vitals and physical assessment findings are stable following delivery Description: Edema will be absent or minimal INTERVENTIONS 1. Vital signs - vaginal delivery - recovery & 2. Assess fundus - vaginal delivery - recovery and 3. Do lochia check - vaginal delivery - recovery and Outcome: Progressing Note: Evaluation of progress towards goal: Patient vitals and physical assessment findings are wnl following vaginal delivery of baby boy Goal: Perineum intact without discharge or hematoma Description: INTERVENTIONS 1. Ice to perineum 2. Provide pericare 3. Sitz bath PRN Outcome: Progressing Note: Evaluation of progress towards goal: Perineum with lacerations, education on pericare Goal: Ambulates independently Description: INTERVENTION 1. Ambulate Outcome: Progressing Note: Evaluation of progress towards goal: Patient ambulating independently at this time Problem: Optimal Supply and Comfortable Goal: Adequate feeds Description: INTERVENTIONS 1. Offer breast at least 8-12 times in first 24 hours 2. After first day, baby should feed at least 8-12 times in 24 hours. Wake baby at least every 3 hours to feed 3. Offer both breasts 4. Keep baby actively feeding at breast by using breast compressions or stimulating baby. Undress baby for feeds Outcome: Progressing Note: Evaluation of progress towards goal: Goal complete, supplementing due to low blood sugars on infant Additional Comments: [facility] 04-01-2023 Labor and deliver y summary note Delivery Record Patient Observations (Last 24 hours) None Patient Observations (Last 24 hours) None Burrows, Pending [[id number]] Events of Labor labor?: No steroids?: None Cervical ripening date/time: Antibiotics received during labor?: No Rupture date/time: 04/01/23 1233 Rupture type: Artificial, Intact Fluid color: Clear Fluid odor: No Induction: Oxytocin, AROM Labor complications: None Labor Event Times Labor onset date/time: 04/01/23 0530 Dilation complete date/time: 04/01/232203 Start pushing date/time: 04/01/20232214 Anesthesia Method: Epidural Anesthesia provided by: D. Forte SENIOR MEDICAL TRANSCRIPTIONIST Attending: Yaima Mc MD Assisted Delivery Forceps attempted?: No Vacuum extractor attempted?: No Document Additional Attempt Document Additional Attempt Shoulder Dystocia Shoulder dystocial present?: No Second Maneuver Third Maneuver Fourth Maneuver Fifth Maneuver Sixth Maneuver Seventh Maneuver Eighth Maneuver \Ninth Maneuver Presentation Presentation: Vertex Position: Right Occiput Anterior [place] Information Delivery date/time: 04/01/232217 Delivery type: Vaginal, Spontaneous details: Trial of labor?: Yes Delivery Providers Delivering clinician: AURELIA Arzola Provider Role Anat Leblanc RN Delivery Nurse Kesha Banks Nurse Apprentice Painter Neckties Student [place] Nurse Cord Information Vessels: 3 vessels Complications: Wrapped Cord around: neck, right upper extremity Number of loops: 1 Delayed cord clamping?: Yes Cord clamped date/time: 04/01/2023 10:19 PM Cord blood obtained?: Yes Cord blood disposition: Lab Gases sent?: Yes Cord comments: Cord segment obtained Stem cell collection (by )?: No Placenta Date/time: 04/01/20232222 Removal: Spontaneous Appearance: Intact Disposition: discarded hemorrhage: No Resuscitation Method: Suctioning, Tactile stimulation Resuscitation needed: Yes Additional resources called: Yes Additional resource: NICU Assessment No data filed Skin to Skin No data filed Measurements Weight: 3.32 kg Lacerations/EBL Episiotomy: None Perineal lacerations: None Periurethral laceration: bilateral Repaired: No Vaginal laceration: Yes Repaired: No Surgical or additional est. blood loss (mL): 0 Combined est. blood loss (mL): 0 Repair suture: None Number of repair packets: 0 Other Delivery Procedures Procedures at bedside: None SNM to room for SVE at 6 hours, SVE 10/100/+2. Began pushing effectively with contractions. Viable male delivered in CHERELLE position,with cord wrapped around side of neck and posterior arm. Shoulders delivered without additional maneuvers. placed on maternal abdomen, stimulation and suctioning done. Infant had poor tone, minimal respiratory effort, and poor color. Delayed cord clamping done for 30 seconds. Cord double clamped by SNM and then cut by FOB. Cord segment and cord blood obtained. Placenta delivered via Navarro presentation. Fundus boggy and bleeding moderate. PP pitocin infusing per protocol at this point. Bimanual completed with multiple large clots removed from the uterus, fundus firming up. Methergine IM given. Fundus firm U/U, bleeding WNL. . Perineum inspected, hemostatic bilateral periurethral lacerations, and a small right vaginal hemostatic laceration noted. Mother and baby in stable condition. EBL 350 PRAVIN Biswas' Associated attestation - Cathryn Eric APRN-CNM - 04/01/2023 11:14 PM EST I performed the of the patient with the student SHERIF and discussed management with the student. I reviewed the student's note documented findings and I agree with the assessment and plan. [facility] 04-01-2023 Plan of care note Problem: Pain Goal: Patient goal is pain score less than 4, able to rest, and participant in treatment plan as appropriate Description: INTERVENTIONS: 1. Encourage patient or legal regional sales representative to report early pain and ask for pain medicine when needed 2. Assess pain using appropriate pain scale and include the scale used when documenting 3. Administer analgesics based on type and severity of pain and evaluate response within appropriate time frame 4. Implement non-pharmacological measures as appropriate and evaluate response 5. Consider cultural and social influences on pain and pain management 6. Notify LIP if interventions ineffective or patient reports new pain 7. Monitor vital signs including pulse ox, end-tidal CO2 based on pain intervention 8. Reassess pain per policy 9. Teach patient or legal regional sales representative interventions for comforting Outcome: Progressing Note: Evaluation of progress towards goal: Patient verbalizes tolerable pain score at this time. Pain medications will be given as needed. Problem: Safety Goal: Patient will be injury free during hospitalization Description: INTERVENTIONS: 1. Assess patient's risk for falls and implement fall prevention plan of care per policy 2. Provide and maintain a safe environment 3. Proper use of double Identifiers 4. Medication administration using the 5 rights 5. Hand hygiene 6. Specimens are labeled at the bedside 7. Instruct patient/ patient regional sales representative about use of safety devices 8. Include patient/ patient regional sales representative in decisions related to safety Outcome: Progressing Note: Evaluation of progress towards goal: Safe environment maintained at this time. Problem: Infection Goal: Absence of infection during hospitalization Description: Interventions: 1. Assess and monitor for signs and symptoms of infection 2. Monitor lab/diagnostic results 3. Monitor all insertion sites i.e., indwelling lines, tubes and drains 4. Monitor endotracheal (as able) and nasal secretions for changes in amount and color 5. Administer medications as ordered 6. Instruct and encourage patient and family to use good hand hygiene technique 7. Identify and instruct patient/patient regional sales representative in use of appropriate isolation precautions for identified infection/symptoms 8. Provide and discuss with patient/patient regional sales representative on educational MDRO sheet 9. Encourage and monitor nutritional status daily and consult commissary superintendent if indicated 10. Implement neutropenic guidelines as needed 11. Review exposure to history of communicable disease and recent travel history on admission 12. Encourage annual influenza vaccine 13. Encourage pneumonia vaccine Outcome: Progressing Note: Evaluation of progress towards goal: Patient is free from signs and symptoms of infection at this time. Problem: Knowledge Deficit Goal: Patient/patient regional sales representative demonstrates understanding of disease process, treatment plan, medications, and discharge instructions Description: INTERVENTIONS 1. Complete learning assessment and assess knowledge base 2. Provide teaching at level of understanding 3. Provide teaching via preferred learning method(s) Outcome: Progressing Note: Evaluation of progress towards goal: Teaching provided as needed at patient's level of understanding. Problem: Discharge Planning Goal: Discharge to post-acute care, other facility, or home with appropriate resources Description: Patient's goal is: INTERVENTIONS 1. Conduct assessment to determine patient/family and health care team treatment goals, and need for post-acute services based on payer coverage, community resources, and patient preferences, and barriers to discharge 2. Coordinate with Social work, Care Navigation, and Utilization Review to arrange appropriate level of services according to patient's needs based on patient preference and payer coverage in collaboration with the physician and health care team 3. Address psychosocial, clinical, and financial barriers to discharge as identified in assessment in conjunction with the patient/family and health care team 4. Consult appropriate ancillary services (i.e.. PT/OT/ST, etc) as needed 5. Communicate with and update the patient/family, physician, and health care team regarding progress on the discharge plan 6. Identify discharge learning needs (meds, wound care, etc). 7. Arrange for needed discharge transportation as appropriate Outcome: Progressing Note: Evaluation of progress towards goal: Appropriate consults done at this time. Patient verbalizes understanding. Problem: Low Risk Fall Score Description: Jules Fall Score of 0 - 24 or indicated by [facility] Assessment Goal: Patient should be free from fall Description: Interventions: 1. Crandall to environment 2. Hourly rounds addressing the 4 P's (Pain, Positioning, Possessions, Potty) 3. Clear area of hazards (spills, clutter, electrical cords, unnecessary equipment) 4. Place equipment (bed & TV controls, call light, phone, urinal) within reach 5. Encourage patient to wear glasses and hearing aides as appropriate 6. Maintain bed in lowest position 7. Lock wheels on bed/wheelchair 8. Provide adequate lighting, including night light 9. Assess need for additional bedding, food/fluids, pain med's prior to sleep/routinely 10. Provide gripper slippers or personal non-skid footwear 11. Teach patient and patient regional sales representative to maintain environment for safety and engage in all aspects of fall prevention program Outcome: Progressing Note: Evaluation of progress towards goal: Fall prevention plan implemented as needed. Problem: Oligohydramnios/Polyhydramnios Goal: Patient will have adequate monitoring during labor Description: INTERVENTION 1. Monitor electric monitoring as ordered Outcome: Progressing Note: Evaluation of progress towards goal: monitoring adequate at this time. Goal: heart tones will be within normal limits after ROM Description: INTERVENTION 1. Monitor heart tones in labor for signs of cord compression Outcome: Progressing Note: Evaluation of progress towards goal: heart tones within normal limits at this time. Problem: Moderate - High Risk Fall Score Description: Jules Fall Score of =/> 25 or indicated by [facility] Assessment Goal: Patient should be free from fall Description: Interventions: 1. [place] to environment 2. Hourly rounds addressing the 4 P's (Pain, Positioning, Possessions, Potty) 3. Clear area of hazards (spills, clutter, electrical cords, unnecessary equipment) 4. Place equipment (bed & TV controls, call light, phone, urinal) within reach 5. Encourage patient to wear glasses and hearing aides as appropriate 6. Maintain bed in lowest position 7. Lock wheels on bed/wheelchair 8. Provide adequate lighting, including night light 9. Assess need for additional bedding, food/fluids, pain med's prior to sleep/routinely 10. Provide gripper slippers or personal non-skid footwear 11. Teach patient and patient regional sales representative to maintain environment for safety and engage in all aspects of fall prevention program 12. Remind patient to call for help before getting out of bed 13. Initiate bed/chair/exit alarms supportive devices as appropriate, (chair wedge, no-skid floor mat, raised edge mattress, hip protectors) 14. Locate patient bed assignment for optimal visualization 15. Evaluate and identify Safe Patient Handling Equipment needs 16. Provide supervision when out of bed or chair 17. Utilize gait belt as needed to assist with ambulation 18. Place adaptive equipment (cane, walker) within reach 19. Request patient regional sales representative bring adaptive equipment/mobility aids from home or obtain and provide as needed 20. Consult pharmacy regarding effects of med's affecting mobility, cognition, and alternatives 21. Obtain physician order for PT if risk factors associated with mobility are present 22. Obtain physician order for OT as appropriate 23. Utilize diversional activities 24. Educate patient and patient regional sales representative how to maintain a safe environment during visitation times (notify nurse prior to leaving bedside) 25. Consider appropriateness of medical or non-medical assistant 26. Set up voiding schedule as appropriate (every 2 hours) Outcome: Progressing Note: Evaluation of progress towards goal: Patient has no falls at this time. [facility] Plan of care note Problem: Pain Goal: Patient goal is pain score less than 4, able to rest, and participant in treatment plan as appropriate Description: INTERVENTIONS: 1. Encourage patient or legal regional sales representative to report early pain and ask for pain medicine when needed 2. Assess pain using appropriate pain scale and include the scale used when documenting 3. Administer analgesics based on type and severity of pain and evaluate response within appropriate time frame 4. Implement non-pharmacological measures as appropriate and evaluate response 5. Consider cultural and social influences on pain and pain management 6. Notify LIP if interventions ineffective or patient reports new pain 7. Monitor vital signs including pulse ox, end-tidal CO2 based on pain intervention 8. Reassess pain per policy 9. Teach patient or legal regional sales representative interventions for comforting Outcome: Progressing Note: Evaluation of progress towards goal: Patient verbalizes tolerable level of pain at this time. Pain medications will be given as needed. Problem: Safety Goal: Patient will be injury free during hospitalization Description: INTERVENTIONS: 1. Assess patient's risk for falls and implement fall prevention plan of care per policy 2. Provide and maintain a safe environment 3. Proper use of double Identifiers 4. Medication administration using the 5 rights 5. Hand hygiene 6. Specimens are labeled at the bedside 7. Instruct patient/ patient regional sales representative about use of safety devices 8. Include patient/ patient regional sales representative in decisions related to safety Outcome: Progressing Note: Evaluation of progress towards goal: Safe environment maintained. Medications administered using 5 rights. Fall prevention plan implemented as needed. Problem: Infection Goal: Absence of infection during hospitalization Description: Interventions: 1. Assess and monitor for signs and symptoms of infection 2. Monitor lab/diagnostic results 3. Monitor all insertion sites i.e., indwelling lines, tubes and drains 4. Monitor endotracheal (as able) and nasal secretions for changes in amount and color 5. Administer medications as ordered 6. Instruct and encourage patient and family to use good hand hygiene technique 7. Identify and instruct patient/patient regional sales representative in use of appropriate isolation precautions for identified infection/symptoms 8. Provide and discuss with patient/patient regional sales representative on educational MDRO sheet 9. Encourage and monitor nutritional status daily and consult commissary superintendent if indicated 10. Implement neutropenic guidelines as needed 11. Review exposure to history of communicable disease and recent travel history on admission 12. Encourage annual influenza vaccine 13. Encourage pneumonia vaccine Outcome: Progressing Note: Evaluation of progress towards goal: Patient is free from signs and symptoms of infection. Problem: Knowledge Deficit Goal: Patient/patient regional sales representative demonstrates understanding of disease process, treatment plan, medications, and discharge instructions Description: INTERVENTIONS 1. Complete learning assessment and assess knowledge base 2. Provide teaching at level of understanding 3. Provide teaching via preferred learning method(s) Outcome: Progressing Note: Evaluation of progress towards goal: Teaching provided as needed at patient's level of understanding. Problem: Discharge Planning Goal: Discharge to post-acute care, other facility, or home with appropriate resources Description: Patient's goal is: INTERVENTIONS 1. Conduct assessment to determine patient/family and health care team treatment goals, and need for post-acute services based on payer coverage, community resources, and patient preferences, and barriers to discharge 2. Coordinate with Social work, Care Navigation, and Utilization Review to arrange appropriate level of services according to patient's needs based on patient preference and payer coverage in collaboration with the physician and health care team 3. Address psychosocial, clinical, and financial barriers to discharge as identified in assessment in conjunction with the patient/family and health care team 4. Consult appropriate ancillary services (i.e.. PT/OT/ST, etc) as needed 5. Communicate with and update the patient/family, physician, and health care team regarding progress on the discharge plan 6. Identify discharge learning needs (meds, wound care, etc). 7. Arrange for needed discharge transportation as appropriate Outcome: Progressing Note: Evaluation of progress towards goal: Appropriate consults done as needed. Discharge learning needs identified. Problem: Low Risk Fall Score Description: Jules Fall Score of 0 - 24 or indicated by [facility] Assessment Goal: Patient should be free from fall Description: Interventions: 1. [place] to environment 2. Hourly rounds addressing the 4 P's (Pain, Positioning, Possessions, Potty) 3. Clear area of hazards (spills, clutter, electrical cords, unnecessary equipment) 4. Place equipment (bed & TV controls, call light, phone, urinal) within reach 5. Encourage patient to wear glasses and hearing aides as appropriate 6. Maintain bed in lowest position 7. Lock wheels on bed/wheelchair 8. Provide adequate lighting, including night light 9. Assess need for additional bedding, food/fluids, pain med's prior to sleep/routinely 10. Provide gripper slippers or personal non-skid footwear 11. Teach patient and patient regional sales representative to maintain environment for safety and engage in all aspects of fall prevention program Outcome: Progressing Note: Evaluation of progress towards goal: Patient understands fall prevention plan. Problem: Oligohydramnios/Polyhydramnios Goal: Patient will have adequate monitoring during labor Description: INTERVENTION 1. Monitor electric monitoring as ordered Outcome: Progressing Note: Evaluation of progress towards goal: Continuous monitoring. FHR tracing WNL. Goal: heart tones will be within normal limits after ROM Description: INTERVENTION 1. Monitor heart tones in labor for signs of cord compression Outcome: Progressing Note: Evaluation of progress towards goal: Continuous monitoring. FHR tracing WNL. Problem: Moderate - High Risk Fall Score Description: Jules Fall Score of =/> 25 or indicated by [facility] Assessment Goal: Patient should be free from fall Description: Interventions: 1. [place] to environment 2. Hourly rounds addressing the 4 P's (Pain, Positioning, Possessions, Potty) 3. Clear area of hazards (spills, clutter, electrical cords, unnecessary equipment) 4. Place equipment (bed & TV controls, call light, phone, urinal) within reach 5. Encourage patient to wear glasses and hearing aides as appropriate 6. Maintain bed in lowest position 7. Lock wheels on bed/wheelchair 8. Provide adequate lighting, including night light 9. Assess need for additional bedding, food/fluids, pain med's prior to sleep/routinely 10. Provide gripper slippers or personal non-skid footwear 11. Teach patient and patient regional sales representative to maintain environment for safety and engage in all aspects of fall prevention program 12. Remind patient to call for help before getting out of bed 13. Initiate bed/chair/exit alarms supportive devices as appropriate, (chair wedge, no-skid floor mat, raised edge mattress, hip protectors) 14. Locate patient bed assignment for optimal visualization 15. Evaluate and identify Safe Patient Handling Equipment needs 16. Provide supervision when out of bed or chair 17. Utilize gait belt as needed to assist with ambulation 18. Place adaptive equipment (cane, walker) within reach 19. Request patient regional sales representative bring adaptive equipment/mobility aids from home or obtain and provide as needed 20. Consult pharmacy regarding effects of med's affecting mobility, cognition, and alternatives 21. Obtain physician order for PT if risk factors associated with mobility are present 22. Obtain physician order for OT as appropriate 23. Utilize diversional activities 24. Educate patient and patient regional sales representative how to maintain a safe environment during visitation times (notify nurse prior to leaving bedside) 25. Consider appropriateness of medical or non-medical assistant 26. Set up voiding schedule as appropriate (every 2 hours) Outcome: Progressing Note: Evaluation of progress towards goal: .Patient understands fall prevention plan. Additional Comments: [facility] 03-31-2023 Plan of care note Problem: Pain Goal: Patient goal is pain score less than 4, able to rest, and participant in treatment plan as appropriate Description: INTERVENTIONS: 1. Encourage patient or legal regional sales representative to report early pain and ask for pain medicine when needed 2. Assess pain using appropriate pain scale and include the scale used when documenting 3. Administer analgesics based on type and severity of pain and evaluate response within appropriate time frame 4. Implement non-pharmacological measures as appropriate and evaluate response 5. Consider cultural and social influences on pain and pain management 6. Notify LIP if interventions ineffective or patient reports new pain 7. Monitor vital signs including pulse ox, end-tidal CO2 based on pain intervention 8. Reassess pain per policy 9. Teach patient or legal regional sales representative interventions for comforting Outcome: Progressing Note: Evaluation of progress towards goal: Patient verbalizes tolerable level of pain at this time. Pain medications will be given as needed. Problem: Safety Goal: Patient will be injury free during hospitalization Description: INTERVENTIONS: 1. Assess patient's risk for falls and implement fall prevention plan of care per policy 2. Provide and maintain a safe environment 3. Proper use of double Identifiers 4. Medication administration using the 5 rights 5. Hand hygiene 6. Specimens are labeled at the bedside 7. Instruct patient/ patient regional sales representative about use of safety devices 8. Include patient/ patient regional sales representative in decisions related to safety Outcome: Progressing Note: Evaluation of progress towards goal: Safe environment maintained. Medications administered using 5 rights. Fall prevention plan implemented as needed. Problem: Infection Goal: Absence of infection during hospitalization Description: Interventions: 1. Assess and monitor for signs and symptoms of infection 2. Monitor lab/diagnostic results 3. Monitor all insertion sites i.e., indwelling lines, tubes and drains 4. Monitor endotracheal (as able) and nasal secretions for changes in amount and color 5. Administer medications as ordered 6. Instruct and encourage patient and family to use good hand hygiene technique 7. Identify and instruct patient/patient regional sales representative in use of appropriate isolation precautions for identified infection/symptoms 8. Provide and discuss with patient/patient regional sales representative on educational MDRO sheet 9. Encourage and monitor nutritional status daily and consult commissary superintendent if indicated 10. Implement neutropenic guidelines as needed 11. Review exposure to history of communicable disease and recent travel history on admission 12. Encourage annual influenza vaccine 13. Encourage pneumonia vaccine Outcome: Progressing Note: Evaluation of progress towards goal: Patient is free from signs and symptoms of infection. Problem: Knowledge Deficit Goal: Patient/patient regional sales representative demonstrates understanding of disease process, treatment plan, medications, and discharge instructions Description: INTERVENTIONS 1. Complete learning assessment and assess knowledge base 2. Provide teaching at level of understanding 3. Provide teaching via preferred learning method(s) Outcome: Progressing Note: Evaluation of progress towards goal: Teaching provided as needed at patient's level of understanding. Problem: Discharge Planning Goal: Discharge to post-acute care, other facility, or home with appropriate resources Description: Patient's goal is: INTERVENTIONS 1. Conduct assessment to determine patient/family and health care team treatment goals, and need for post-acute services based on payer coverage, community resources, and patient preferences, and barriers to discharge 2. Coordinate with Social work, Care Navigation, and Utilization Review to arrange appropriate level of services according to patient's needs based on patient preference and payer coverage in collaboration with the physician and health care team 3. Address psychosocial, clinical, and financial barriers to discharge as identified in assessment in conjunction with the patient/family and health care team 4. Consult appropriate ancillary services (i.e.. PT/OT/ST, etc) as needed 5. Communicate with and update the patient/family, physician, and health care team regarding progress on the discharge plan 6. Identify discharge learning needs (meds, wound care, etc). 7. Arrange for needed discharge transportation as appropriate Outcome: Progressing Note: Evaluation of progress towards goal: Appropriate consults done as needed. Discharge learning needs identified. Problem: Low Risk Fall Score Description: Jules Fall Score of 0 - 24 or indicated by [facility] Assessment Goal: Patient should be free from fall Description: Interventions: 1. [place] to environment 2. Hourly rounds addressing the 4 P's (Pain, Positioning, Possessions, Potty) 3. Clear area of hazards (spills, clutter, electrical cords, unnecessary equipment) 4. Place equipment (bed & TV controls, call light, phone, urinal) within reach 5. Encourage patient to wear glasses and hearing aides as appropriate 6. Maintain bed in lowest position 7. Lock wheels on bed/wheelchair 8. Provide adequate lighting, including night light 9. Assess need for additional bedding, food/fluids, pain med's prior to sleep/routinely 10. Provide gripper slippers or personal non-skid footwear 11. Teach patient and patient regional sales representative to maintain environment for safety and engage in all aspects of fall prevention program Outcome: Progressing Note: Evaluation of progress towards goal: Patient understands fall prevention plan. Problem: Oligohydramnios/Polyhydramnios Goal: Patient will have adequate monitoring during labor Description: INTERVENTION 1. Monitor electric monitoring as ordered Outcome: Progressing Note: Evaluation of progress towards goal: pt is maintaining monitoring Goal: heart tones will be within normal limits after ROM Description: INTERVENTION 1. Monitor heart tones in labor for signs of cord compression Outcome: Progressing Note: Evaluation of progress towards goal: tones within defined limits pt not yet ruptured Additional Comments: [facility] 03-31-2023 History and physical note Images from the original note were not included. Jolene Burrows is a 22 y.o.. at 39w0d with Estimated Date of Delivery: 04/07/23 who presents with Chief Complaint Patient presents with MIOL For polyhydramnios. Care by: [facility] HPI: MIOL for poly Pt reports pos FM. Pt reports rare contractions . Pt denies LOF, VB, dysuria. Her current obstetrical history is significant for see Active Problem List. REVIEW OF SYSTEMS: General: WNL Head: No headache or visual changes Cardio: Denies chest pain. Respiratory: Denies shortness of breath GI: No nausea/vomiting : Denies urinary symptoms. Patient Active Problem List Diagnosis Date Noted Polyhydramnios affecting in third trimester 03/31/2023 Polyhydramnios in third trimester 03/25/2023 , supervision of first 03/18/2023 Carrier of spinal muscular atrophy 01/09/2023 Elevated glucose tolerance test 01/06/2023 Inappropriate sinus tachycardia 12/25/2022 Migraines 12/22/2022 Low weight gain during , antepartum 12/17/2022 Shortness of breath 11/14/2022 Heart palpitations 10/21/2022 Family history of heart disease 10/21/2022 Recurrent syncope 09/18/2022 care in second trimester 09/18/2022 Anemia during in third trimester 08/14/2022 Primiparity 08/14/2022 Obesity affecting 08/14/2022 S/P tonsillectomy 01/02/2021 Class 1 obesity due to excess calories in adult 04/03/2018 Depression 03/18/2018 Medications Prior to Admission Medication Sig Dispense Refill Last Dose aspirin 81 mg Take 1 tablet (81 mg total) by mouth in the morning. 150 tablet 2 03/31/2023 ferrous sulfate 325 (65 FE) mg tablet Take 1 tablet (325 mg total) by mouth in the morning. 30 tablet 3 03/31/2023 hydrOXYzine (VistariL) 25 mg capsule Take 1 capsule (25 mg total) by mouth 2 (two) times a day as needed for itching. 30 capsule 0 Past Week vit [id number] 18-1-350 mg capsule Take 1 tablet by mouth in the morning. Indications: , prevention of neural tube defect when . 90 capsule 4 03/31/2023 sertraline (ZOLOFT) 50 mg tablet Take 1 tablet (50 mg total) by mouth in the morning. 30 tablet 2 03/30/2023 magnesium oxide (MAGOX) 400 mg tablet Take 1 tablet (400 mg total) by mouth in the morning. (Patient not taking: Reported on 03/24/2023) 30 tablet 2 More than a month OB History Para Term AB Living 1 0 0 0 0 0 SAB IAB Ectopic Multiple Live Births 0 0 0 0 0 # Outcome Date GA Lbr Chadd/2nd Weight Sex Delivery Anes PTL Lv 1 Current MEDICAL HX Past Medical History: Diagnosis Date Asthma Depression Inappropriate sinus tachycardia Polycystic ovary syndrome SURGICAL HX Past Surgical History: Procedure Laterality Date TONSILLECTOMY TRAVEL HX Travel Screening Question Response Have you been in contact with someone who was sick? No / Unsure Do you have any of the following new or worsening symptoms? None of these Have you traveled internationally or domestically in the last month? No Travel History Travel since 02/28/23 No documented travel since 02/28/23 MEDS Current Facility-Administered Medications Medication Dose Route Frequency Provider Last Rate Last Admin acetaminophen (TYLENOL) tablet 650 mg 650 mg oral Q4H PRN Marilynn M Ashby Bojanic, BAR MANAGER-CNM carboprost (HEMABATE) injection 250 mcg 250 mcg intramuscular Once PRN Marilynn M Ashby Bojanic, BAR MANAGER-CNM lactated ringers bolus 500 mL intravenous PRN Marilynn M Ashby Bojanic, BAR MANAGER-CNM lactated ringers bolus 500 mL intravenous Once Marilynn M Ashby Bojanic, BAR MANAGER-CNM lactated ringers infusion 999 mL/hr intravenous Continuous PRN Marilynn M Ashby Bojanic, BAR MANAGER-CNM lactated ringers infusion 125 mL/hr intravenous Continuous Marilynn M Ashby Bojanic, BAR MANAGER-CNM 125 mL/hr at 03/31/232130 125 mL/hr at 03/31/232130 lactated ringers infusion 250 mL/hr intravenous Continuous PRN Marilynn M Ashby Bojanic, BAR MANAGER-CNM oxytocin (PITOCIN) infusion 30 units/500 mL in lactated ringers (0.06 units/mL premix) 42 bismark-units/min intravenous Continuous PRN Marilynn M Ashby Bojanic, BAR MANAGER-CNM And lactated ringers infusion 83 mL/hr intravenous Continuous PRN Marilynn M Ashby Bojanic, BAR MANAGER-CNM lactated ringers infusion 50 mL/hr intravenous Continuous Marilynn M Ashby Bojanic, BAR MANAGER-CNM lidocaine PF (XYLOCAINE) 10 mg/mL (1 %) injection 100 mg 10 mL infiltration PRN Marilynn M Ashby Bojanic, BAR MANAGER-CNM methylergonovine (METHERGINE) injection 200 mcg 200 mcg intramuscular Once PRN Marilynn M Ashby Bojanic, BAR MANAGER-CNM miSOPROStoL (CYTOTEC) tablet 1,000 mcg 1,000 mcg rectal Once PRN Marilynn M Ashby Bojanic, BAR MANAGER-CNM ondansetron (PF) (ZOFRAN) injection 4 mg 4 mg intravenous Q4H PRN Marilynn M Ashby Bojanic, BAR MANAGER-CNM oxytocin (PITOCIN) bolus from bag solution 10 Units 10 Units intravenous Once PRN Marilynn M Ashby Bojanic, BAR MANAGER-CNM oxytocin (PITOCIN) infusion 30 units/500 mL in lactated ringers (0.06 units/mL premix) 1-20 bismark-units/min intravenous Titrated Marilynn M Ashby Bojanic, BAR MANAGER-CNM 1 mL/hr at 03/31/232133 1 bismark-units/min at 03/31/232133 oxytocin (PITOCIN) injection 10 Units 10 Units intramuscular Once PRN Marilynn M Ashby Bojanic, BAR MANAGER-CNM tranexamic acid (CYKLOKAPRON) injection 1,000 mg 1,000 mg intravenous Q30 Min PRN Marilynn M Ashby Bojanic, BAR MANAGER-CNM ALLERGIES No Known Allergies FAMILY HX Family History Problem Relation Age of Onset Mental illness Mother depression, anxiety Asthma Mother Mental illness Father Other Father breathing problems since COVID Depression Sister No Known Problems Brother Mental illness Maternal Grandmother Heart disease Maternal Grandmother age 44 Diabetes Maternal Grandmother Breast cancer Maternal Grandmother after age 50 Diabetes Maternal Grandfather Dementia Maternal Grandfather Irritable bowel syndrome Paternal Grandmother Diabetes Maternal Uncle Blood Clots Neg Hx Clotting disorder Neg Hx Uterine cancer Neg Hx Colon cancer Neg Hx Pancreatic cancer Neg Hx Ovarian cancer Neg Hx SOCIAL HX Social History Tobacco Use Smoking status: Never Smokeless tobacco: Never Vaping Use Vaping Use: Former Devices: Disposable Substance Use Topics Alcohol use: No Drug use: No Vital signs in last 24 hours: Vitals: 03/31/23 2100 BP: 104/51 Pulse: 105 Resp: Temp: RECENT LABS IN LAST 24 HOURS No results found for this or any previous visit (from the past 24 hour(s)). Immunization History Administered Date(s) Administered COVID-19, mRNA, LNP-S, PF, 30mcg/0.3mL Dose 10/10/2020, 10/31/2020 DTaP 04/25/2003, 09/07/2003, 05/22/2004, 12/18/2005, 11/26/2007 DTaP / Hep B / IPV 04/25/2003, 09/07/2003, 05/22/2004 Hep A, 2 Dose 01/20/2017, 04/30/2020 Hepatitis B 2002, 04/25/2003, 09/07/2003, 05/22/2004 HiB 04/25/2003, 09/07/2003, 05/22/2004, 12/18/2005 Hib (PRP-T) 04/25/2003, 09/07/2003, 05/22/2004, 12/18/2005 IPV 04/25/2003, 09/07/2003, 05/22/2004, 11/26/2007 MMR 12/18/2005, 11/26/2007 MMRV 12/18/2005 Meningococcal B, Omv 03/28/2020, 04/30/2020 Meningococcal Conjugate 03/28/2020 Pneumococcal Conjugate 04/25/2003, 09/07/2003, 05/22/2004 Pneumococcal Conjugate 13-Valent 04/25/2003, 09/07/2003, 05/22/2004 Tdap 11/01/2014, 01/06/2023 Varicella 12/18/2005, 11/01/2014 Lab Review ABO/Rh: No results found for: ABOINTEP , RHINTEP Group B Strep: No results found for: EXTGBS Rubella: Lab Results Component Value Date RUBELLAIMMU 9 07/22/2022 Hepatitis B Surface Antigen: Lab Results Component Value Date HEPBSAG Negative 08/28/2022 HIV:No results found for: HIV1X2 RPR (VDRL): No results found for: SYPHILIS One hour GTT: Lab Results Component Value Date LABGLUC 132 01/06/2023 Three Hour GTT: Lab Results Component Value Date GLUF 76 01/08/2023 GNAPEZE0QS 143 01/08/2023 [id number] 134 01/08/2023 [id number] 101 (H) 01/08/2023 PHYSICAL EXAM: Consitutional: well-appearing; NAD Psychological: Alert and oriented to person, place and time Neurological: No deficits Head/Neck: No masses/adenopathy, non-tender Skin: Normal temp and turgor, dry, intact Respiratory: CTA B PA Cardiovascular: RRR Abdomen: Soft, gravid, non-tender to palpation Back: No CVAT, no back pain Musculoskeletal: ROM x 4, normal gait Extremities: No LE edema, non-tender Genitourinary: No masses or lesions SSE: not performed PELVIC EXAM: Presentation: Presentation: Vertex Cervix: Dilation: Dilation: 3 Effacement: Effacement (%): 70 Station: Station: -1 Position: FHR: 125 baseline, moderate variability, positive accels, Absent decels Uterine Activity: rare per toco Impression: 22 y.o., at 39w0d here for MIOL with polyhydramnios. Cat 1 FHT PLAN: Will start Pitocin Position changes and fluids with carbs AURELIA Carrillo 03/31/232140 AURELIA Carrillo 03/31/232142 [facility] 03-31-2023 History and physical note Images from the original note were not included. Jolene Burrows is a 22 y.o.. at 39w0d with Estimated Date of Delivery: 04/07/23 who presents with Chief Complaint Patient presents with MIOL For polyhydramnios. Care by: CNM's [facility] HPI: MIOL for poly Pt reports pos FM. Pt reports rare contractions . Pt denies LOF, VB, dysuria. Her current obstetrical history is significant for see Active Problem List. REVIEW OF SYSTEMS: General: WNL Head: No headache or visual changes Cardio: Denies chest pain. Respiratory: Denies shortness of breath GI: No nausea/vomiting : Denies urinary symptoms. Patient Active Problem List Diagnosis Date Noted Polyhydramnios affecting in third trimester 03/31/2023 Polyhydramnios in third trimester 03/25/2023 , supervision of first 03/18/2023 Carrier of spinal muscular atrophy 01/09/2023 Elevated glucose tolerance test 01/06/2023 Inappropriate sinus tachycardia 12/25/2022 Migraines 12/22/2022 Low weight gain during , antepartum 12/17/2022 Shortness of breath 11/14/2022 Heart palpitations 10/21/2022 Family history of heart disease 10/21/2022 Recurrent syncope 09/18/2022 care in second trimester 09/18/2022 Anemia during in third trimester 08/14/2022 Primiparity 08/14/2022 Obesity affecting 08/14/2022 S/P tonsillectomy 01/02/2021 Class 1 obesity due to excess calories in adult 04/03/2018 Depression 03/18/2018 Medications Prior to Admission Medication Sig Dispense Refill Last Dose aspirin 81 mg Take 1 tablet (81 mg total) by mouth in the morning. 150 tablet 2 03/31/2023 ferrous sulfate 325 (65 FE) mg tablet Take 1 tablet (325 mg total) by mouth in the morning. 30 tablet 3 03/31/2023 hydrOXYzine (VistariL) 25 mg capsule Take 1 capsule (25 mg total) by mouth 2 (two) times a day as needed for itching. 30 capsule 0 Past Week vit [id number] 18-1-350 mg capsule Take 1 tablet by mouth in the morning. Indications: , prevention of neural tube defect when . 90 capsule 4 03/31/2023 sertraline (ZOLOFT) 50 mg tablet Take 1 tablet (50 mg total) by mouth in the morning. 30 tablet 2 03/30/2023 magnesium oxide (MAGOX) 400 mg tablet Take 1 tablet (400 mg total) by mouth in the morning. (Patient not taking: Reported on 03/24/2023) 30 tablet 2 More than a month OB History Para Term AB Living 1 0 0 0 0 0 SAB IAB Ectopic Multiple Live Births 0 0 0 0 0 # Outcome Date GA Lbr Chadd/2nd Weight Sex Delivery Anes PTL Lv 1 Current MEDICAL HX Past Medical History: Diagnosis Date Asthma Depression Inappropriate sinus tachycardia Polycystic ovary syndrome SURGICAL HX Past Surgical History: Procedure Laterality Date TONSILLECTOMY TRAVEL HX Travel Screening Question Response Have you been in contact with someone who was sick? No / Unsure Do you have any of the following new or worsening symptoms? None of these Have you traveled internationally or domestically in the last month? No Travel History Travel since 02/28/23 No documented travel since 02/28/23 MEDS Current Facility-Administered Medications Medication Dose Route Frequency Provider Last Rate Last Admin acetaminophen (TYLENOL) tablet 650 mg 650 mg oral Q4H PRN Marilynn M Ashby Bojanic, BAR MANAGER-CNM carboprost (HEMABATE) injection 250 mcg 250 mcg intramuscular Once PRN Marilynn M Ashby Bojanic, BAR MANAGER-CNM lactated ringers bolus 500 mL intravenous PRN Marilynn M Ashby Bojanic, BAR MANAGER-CNM lactated ringers bolus 500 mL intravenous Once Marilynn M Ashby Bojanic, BAR MANAGER-CNM lactated ringers infusion 999 mL/hr intravenous Continuous PRN Marilynn M Ashby Bojanic, BAR MANAGER-CNM lactated ringers infusion 125 mL/hr intravenous Continuous Marilynn M Ashby Bojanic, BAR MANAGER-CNM 125 mL/hr at 03/31/232130 125 mL/hr at 03/31/232130 lactated ringers infusion 250 mL/hr intravenous Continuous PRN Marilynn M Ashby Bojanic, BAR MANAGER-CNM oxytocin (PITOCIN) infusion 30 units/500 mL in lactated ringers (0.06 units/mL premix) 42 bismark-units/min intravenous Continuous PRN Marilynn M Ashby Bojanic, BAR MANAGER-CNM And lactated ringers infusion 83 mL/hr intravenous Continuous PRN Marilynn M Ashby Bojanic, BAR MANAGER-CNM lactated ringers infusion 50 mL/hr intravenous Continuous Marilynn M Ashby Bojanic, BAR MANAGER-CNM lidocaine PF (XYLOCAINE) 10 mg/mL (1 %) injection 100 mg 10 mL infiltration PRN Marilynn M Ashby Bojanic, BAR MANAGER-CNM methylergonovine (METHERGINE) injection 200 mcg 200 mcg intramuscular Once PRN Marilynn M Ashby Bojanic, BAR MANAGER-CNM miSOPROStoL (CYTOTEC) tablet 1,000 mcg 1,000 mcg rectal Once PRN Marilynn M Ashby Bojanic, BAR MANAGER-CNM ondansetron (PF) (ZOFRAN) injection 4 mg 4 mg intravenous Q4H PRN Marilynn M Ashby Bojanic, BAR MANAGER-CNM oxytocin (PITOCIN) bolus from bag solution 10 Units 10 Units intravenous Once PRN Marilynn M Ashby Bojanic, BAR MANAGER-CNM oxytocin (PITOCIN) infusion 30 units/500 mL in lactated ringers (0.06 units/mL premix) 1-20 bismark-units/min intravenous Titrated Marilynn M Ashby Bojanic, BAR MANAGER-CNM 1 mL/hr at 03/31/232133 1 bismark-units/min at 03/31/232133 oxytocin (PITOCIN) injection 10 Units 10 Units intramuscular Once PRN Marilynn M Ashby Bojanic, BAR MANAGER-CNM tranexamic acid (CYKLOKAPRON) injection 1,000 mg 1,000 mg intravenous Q30 Min PRN Marilynn M Ashby Bojanic, BAR MANAGER-CNM ALLERGIES No Known Allergies FAMILY HX Family History Problem Relation Age of Onset Mental illness Mother depression, anxiety Asthma Mother Mental illness Father Other Father breathing problems since COVID Depression Sister No Known Problems Brother Mental illness Maternal Grandmother Heart disease Maternal Grandmother age 44 Diabetes Maternal Grandmother Breast cancer Maternal Grandmother after age 50 Diabetes Maternal Grandfather Dementia Maternal Grandfather Irritable bowel syndrome Paternal Grandmother Diabetes Maternal Uncle Blood Clots Neg Hx Clotting disorder Neg Hx Uterine cancer Neg Hx Colon cancer Neg Hx Pancreatic cancer Neg Hx Ovarian cancer Neg Hx SOCIAL HX Social History Tobacco Use Smoking status: Never Smokeless tobacco: Never Vaping Use Vaping Use: Former Devices: Disposable Substance Use Topics Alcohol use: No Drug use: No Vital signs in last 24 hours: Vitals: 03/31/23 2100 BP: 104/51 Pulse: 105 Resp: Temp: RECENT LABS IN LAST 24 HOURS No results found for this or any previous visit (from the past 24 hour(s)). Immunization History Administered Date(s) Administered COVID-19, mRNA, LNP-S, PF, 30mcg/0.3mL Dose 10/10/2020, 10/31/2020 DTaP 04/25/2003, 09/07/2003, 05/22/2004, 12/18/2005, 11/26/2007 DTaP / Hep B / IPV 04/25/2003, 09/07/2003, 05/22/2004 Hep A, 2 Dose 01/20/2017, 04/30/2020 Hepatitis B 2002, 04/25/2003, 09/07/2003, 05/22/2004 HiB 04/25/2003, 09/07/2003, 05/22/2004, 12/18/2005 Hib (PRP-T) 04/25/2003, 09/07/2003, 05/22/2004, 12/18/2005 IPV 04/25/2003, 09/07/2003, 05/22/2004, 11/26/2007 MMR 12/18/2005, 11/26/2007 MMRV 12/18/2005 Meningococcal B, Omv 03/28/2020, 04/30/2020 Meningococcal Conjugate 03/28/2020 Pneumococcal Conjugate 04/25/2003, 09/07/2003, 05/22/2004 Pneumococcal Conjugate 13-Valent 04/25/2003, 09/07/2003, 05/22/2004 Tdap 11/01/2014, 01/06/2023 Varicella 12/18/2005, 11/01/2014 Lab Review ABO/Rh: No results found for: ABOINTEP , RHINTEP Group B Strep: No results found for: EXTGBS Rubella: Lab Results Component Value Date RUBELLAIMMU 9 07/22/2022 Hepatitis B Surface Antigen: Lab Results Component Value Date HEPBSAG Negative 08/28/2022 HIV:No results found for: HIV1X2 RPR (VDRL): No results found for: SYPHILIS One hour GTT: Lab Results Component Value Date LABGLUC 132 01/06/2023 Three Hour GTT: Lab Results Component Value Date GLUF 76 01/08/2023 [id number] 143 01/08/2023 [id number] 134 01/08/2023 HLLLBFA4TL 101 (H) 01/08/2023 PHYSICAL EXAM: Consitutional: well-appearing; NAD Psychological: Alert and oriented to person, place and time Neurological: No deficits Head/Neck: No masses/adenopathy, non-tender Skin: Normal temp and turgor, dry, intact Respiratory: CTA B PA Cardiovascular: RRR Abdomen: Soft, gravid, non-tender to palpation Back: No CVAT, no back pain Musculoskeletal: ROM x 4, normal gait Extremities: No LE edema, non-tender Genitourinary: No masses or lesions SSE: not performed PELVIC EXAM: Presentation: Presentation: Vertex Cervix: Dilation: Dilation: 3 Effacement: Effacement (%): 70 Station: Station: -1 Position: FHR: 125 baseline, moderate variability, positive accels, Absent decels Uterine Activity: rare per toco Impression: 22 y.o., at 39w0d here for MIOL with polyhydramnios. Cat 1 FHT PLAN: Will start Pitocin Position changes and fluids with carbs AURELIA Carrillo 03/31/232140 AURELIA Carrillo 03/31/232142 documented in this encounter [facility] 03-27-2023 History of Presen t illness Narrative Denies cramping or contractions. Denies LOF or vaginal bleeding. +FM per patient. 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 She has been Dx'd with poly with DVP > 10. Pt denies VB, LOF and reports good FM. Discussed round ligament discomfort and discomforts of poly. Discussed confort measures and told the pt that if she did not get releif she was always able to come to the [facility]. PNC appt tomorrow and pt encouraged to discuss her discomforts with her CNM. She agreed with plan. 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 She has been Dx'd with poly with DVP > 10. Pt denies VB, LOF and reports good FM. Discussed round ligament discomfort and discomforts of poly. Discussed confort measures and told the pt that if she did not get releif she was always able to come to the [facility]. PNC appt tomorrow and pt encouraged to discuss her discomforts with her CNM. She agreed with plan. [facility] Work Phone: 03-25-2023 History of Presen t illness Narrative 22 y.o. at 38w1d. Here for routine OB visit. Denies CTX, VB, dysuria, and LOF. +FM. Reviewed normal length of . Continuing daily aspirin as ordered. Feels well mentally and denies SI or problems. Taking Zoloft as ordered. Denies recent syncopal symptoms or episodes; following with cardiology. Last episode was a few months ago. Per last cardiology note, plans to see patient 3 months from March visit. A comprehensive review of systems was negative besides above noted. Desires cervical check. Declines sliver machine operator for physical exam. Cervical exam: 3/70%/-2, medium, mid position Reyes: 7 1. Reviewed signs of labor, warning signs, and movement 2. Discussed when to call CNM production assembly operator, where to go in labor 3. Anemia: continuing ferrous sulfate PO faithfully. Encouraged pt to complete CBC as ordered 03/18. 4. Polyhydramnios: 03/24/23: Amniotic fluid assessment (DVP) is 10.9 cm, mild polyhydramnios. NST twice a week & DVP weekly. Next NST 03/27. Delivery between 39-40 weeks. Discussed recommendation with pt. IOL sheet sent to L&D. Confirmed pt phone number and asked her to answer her phone with call to schedule from L&D. 5. Return in period with AURELIA Ontiveros 03/25/23 [id number] Patient is here for routine exam at 38w1d denies LOF present movement Patient complains of lower abdominal and back pain documented in this encounter [facility] 03-24-2023 History of Presen t illness Narrative Denies cramping or contractions. Denies LOF or vaginal bleeding. +FM per patient. Instructed to notify physician if experiencing any of the following: intermittent low back pain abdominal or menstrual like cramping that is comes and goes or is constant vaginal pressure uterine contractions that are regular and timeable water breaks or feels a gush of fluid any vaginal bleeding that is heavier than a menstrual period decrease or absence of baby movement Advised to drink plenty of fluids, take all prescribed medications, and to keep all scheduled appointments documented in this encounter [facility] 03-19-2023 Miscellaneous Notes Patient states that she went to a [facility] yesterday and while she was there the provider used the acoustic stimulator on the baby to elicit an acceleration. Pt was told NST was reactive but she was concerned that an acoustic stimulator needed to be used. Discussed sleep cycles, and need to wake them up. The acceleration was a reassuring sign. Reviewed kick counts with patient and patient was able to do a teach back. All questions and concerns answered. I saw and evaluated the patient with the student CNM. I reviewed the student CNM note. I agree with the student CNM findings and plan with review of items for learning. I have made adjustments & discussed note & care for this patient. Federica Woods APRN, CNM spoke with KOURTNEY Biswas [facility] 03-19-2023 Telephone encounter Note Patient states that she went to a N[facility] yesterday and while she was there the provider used the acoustic stimulator on the baby to elicit an acceleration. Pt was told NST was reactive but she was concerned that an acoustic stimulator needed to be used. Discussed sleep cycles, and need to wake them up. The acceleration was a reassuring sign. Reviewed kick counts with patient and patient was able to do a teach back. All questions and concerns answered. I saw and evaluated the patient with the student CNM. I reviewed the student CNM note. I agree with the student CNM findings and plan with review of items for learning. I have made adjustments & discussed note & care for this patient. Federica Woods APRN, CNM spoke with KOURTNEY Biswas [facility] 03-19-2023 History of Presen t illness Narrative Reports occasional cramping or contractions. Denies LOF or vaginal bleeding. +FM per patient. Difficult to trace baby due to large movements. EFM and toco adjusted. Patient rerports pain as 10/10 for cramping. No signs of distress noted. Instructed to notify physician if experiencing any of the following: intermittent low back pain abdominal or menstrual like cramping that is comes and goes or is constant vaginal pressure uterine contractions that are regular and timeable water breaks or feels a gush of fluid any vaginal bleeding that is heavier than a menstrual period decrease or absence of baby movement Advised to drink plenty of fluids, take all prescribed medications, and to keep all scheduled appointments documented in this encounter [facility] 03-19-2023 Miscellaneous Notes Pt called in stating that she went to [facility] for ruleout rupture. States they checked her cervix and found that she was not ruptured, and was sent home. States that she has contractions every minute. Feels they are getting worse. She was given vistaril there which she has not taken yet but wants to try to see if it helps with contractions. PT denies RUQ pain that is constant. Pt has pain in upper belly with contractions. Pt does not have headache at this time but has been having on and off. Was seen in triage recently for visual changes. None at this time. Pt states having swelling on and off. Denies any elevated BP. Endorses good movement. Denies any vaginal bleeding. Reviewed preeclampsia warning signs symptoms. If experiencing, recommend she come in to [facility] to be seen. Discussed if having headache that does not go away with tylenol, come in to be seen. Also reviewed if visual changes return, come in to be seen. Elevation, hydration for swelling. If getting worse or sudden onset, come in to be seen. Reviewed can bring on swelling as well. Discussed contractions every few minutes. Recommended pt come in due to pt stating they are getting worse and happening frequently. Pt desires to try vistaril first, will come in if not resolved with vistaril. Reviewed recommendation for pt to come in now but pt declines at this time. Reviewed all obstetric warning signs. All questions and concerns discussed. AURELIA MAIN [facility]-19-[facility]23 Telephone encounter Note Pt called in stating that she went to [facility] for ruleout rupture. States they checked her cervix and found that she was not ruptured, and was sent home. States that she has contractions every minute. Feels they are getting worse. She was given vistaril there which she has not taken yet but wants to try to see if it helps with contractions. PT denies RUQ pain that is constant. Pt has pain in upper belly with contractions. Pt does not have headache at this time but has been having on and off. Was seen in triage recently for visual changes. None at this time. Pt states having swelling on and off. Denies any elevated BP. Endorses good movement. Denies any vaginal bleeding. Reviewed preeclampsia warning signs symptoms. If experiencing, recommend she come in to [facility] to be seen. Discussed if having headache that does not go away with tylenol, come in to be seen. Also reviewed if visual changes return, come in to be seen. Elevation, hydration for swelling. If getting worse or sudden onset, come in to be seen. Reviewed can bring on swelling as well. Discussed contractions every few minutes. Recommended pt come in due to pt stating they are getting worse and happening frequently. Pt desires to try vistaril first, will come in if not resolved with vistaril. Reviewed recommendation for pt to come in now but pt declines at this time. Reviewed all obstetric warning signs. All questions and concerns discussed. AURELIA MAIN [facility] 03-18-2023 Miscellaneous Notes Pt called in stating she felt a large gush of fluid around 1999. Has been leaking since. Has been having contractions throughout the day. Reports good movement. Denies any vaginal bleeding. Instructed pt to come in to be evaluated for rule-out rupture. Pt to come in. Triage CNM notified. All questions and concerns discussed, pt verbalizes understanding of plan. AURELIA MAIN documented in this encounter [facility] 03-18-2023 Telephone encounter Note Pt called in stating she felt a large gush of fluid around 1999. Has been leaking since. Has been having contractions throughout the day. Reports good movement. Denies any vaginal bleeding. Instructed pt to come in to be evaluated for rule-out rupture. Pt to come in. Triage CNM notified. All questions and concerns discussed, pt verbalizes understanding of plan. AURELIA MAIN [facility] 03-18-2023 History of Presen t illness Narrative Patient here for routine at 37w1d Denies LOF Positive movement Urine: small leukocytes S: 22 y.o. at 37w1d. No CTX, VB, LOF. Endorses good FM. Pt states she was in the [facility] last night for contractions and was sent home with labor precautions. CNM note reveals she called last about ocular issues including inability to see and floaters in vision, but denies s/s of pre-eclampsia in [facility] last night and in clinic today. Pt states she is still having contractions every 2-3 minutes but they are irregular and she is still able to walk and talk through them. Discussed s/s labor, and when to call CNM production assembly operator. Discussed water intake, and trying to get at least 8-10 glasses of water a day. Denies s/s of UTI. O: BP 117/76 Wt 109.1 kg (240 lb 8 oz) LMP 06/20/2022 BMI 41.28 kg/m Urine dipstick in clinic Large ketones, small leukocytes, +1 protein Last Growth US: 03/18/2023 Est. FW: 2723 gm 6 lb 19 % AC: 315.1 mm G.Age: 35w 3d 18 % DVP: 7.09 cm A/P: Diagnosis Plan 1. Anemia during in third trimester 11/07/23 10.4/30.8 CBC with auto differential ordered Reports taking po iron 2. Depression, unspecified depression type Denies thoughts of harming herself or others Denies s/s of depression 3. Encounter for care in third trimester of first 4. Recurrent syncope Reviewed need for increase in hydration; change positions slowly. 1. Reviewed signs of labor and movement, when to dave CNM production assembly operator vs going to [facility]; alternative therapies to help with 3rd trimester discomforts. 2. GBS - 3. Return 1 week with CNM I saw and evaluated the patient with the student CNM. I reviewed the student CNM note. I agree with the student CNM findings and plan with review of items for learning. I have made adjustments & discussed note & care for this patient. Federica Woods APRN, CNM seen with KOURTNEY Biswas APRN-CNM 03/18/231810 AURELIA Smith 03/18/231812 documented in this encounter [facility] 03-17-2023 Miscellaneous Notes Pt calling to report headache and visual disturbance. States that she was on her phone and all of a sudden she was seeing white flashing spots and could see nothing else. Pt advised to go to OB ED after discussing the above with Federica Woods CNM. documented in this encounter [facility] 03-17-2023 Telephone encounter Note Pt calling to report headache and visual disturbance. States that she was on her phone and all of a sudden she was seeing white flashing spots and could see nothing else. Pt advised to go to OB ED after discussing the above with Federica Woods CNM. [facility] 03-12-2023 History of Presen t illness Narrative Pt here for 36w2d visit Denies LOF or bleeding Positive movement No further concerns 22 y.o. at 36w2d. Here for routine OB visit. Denies CTX, VB, or LOF. + FM. Is taking zoloft 50mg states is helping with panic attacks. Is happy with current dose. Is having some trouble sleeping. Was prescribed vistaril in triage that she has taken which has helped. Is taking her iron. Had cardiology f/y recommendations are to f/u in 3 months. Pt is requesting eIOL at 39 weeks. She was 250/-3 in triage. Discussed favorable cervix. Plan for repeat SVE at 38 weeks and schedule pt is appropriate. GBS obtained- declined sliver machine operator. Vulva WNL 1. Reviewed signs of labor and movement 2. Discussed when to call CNM production assembly operator, where to go in labor 3. GBS collected 4. Return 1 week 5. Had NST and DVP at [facility] today awaiting results. Next NST/DVP 03/16 has growth scheduled 03/18 AURELIA Rangel 03/12/23 1448 Urine: trace protein and small bilirubin documented in this encounter [facility] 03-12-2023 History of Presen t illness Narrative Denies cramping or contractions. Denies LOF or vaginal bleeding. +FM per patient. Instructed to notify physician if experiencing any of the following: intermittent low back pain abdominal or menstrual like cramping that is comes and goes or is constant vaginal pressure uterine contractions that are regular and timeable water breaks or feels a gush of fluid any vaginal bleeding that is heavier than a menstrual period decrease or absence of baby movement Advised to drink plenty of fluids, take all prescribed medications, and to keep all scheduled appointments documented in this encounter [facility] 03-10-2023 History of Presen t illness Narrative Jolene Burrows Date of visit: 03/10/2023 Date of : 2000 Age: 22 y.o. Patient Active Problem List Diagnosis Depression Class 1 obesity due to excess calories in adult S/P tonsillectomy Anemia during in third trimester Primiparity Obesity affecting Nausea/vomiting in Recurrent syncope care in second trimester Heart palpitations Family history of heart disease Shortness of breath Uterine size date discrepancy , second trimester Low weight gain during , antepartum Migraines Inappropriate sinus tachycardia Elevated glucose tolerance brick tester of spinal muscular atrophy No Known Allergies Current Outpatient Medications Medication Sig Dispense Refill aspirin 81 mg Take 1 tablet (81 mg total) by mouth in the morning. 150 tablet 2 ferrous sulfate 325 (65 FE) mg tablet Take 1 tablet (325 mg total) by mouth in the morning. 30 tablet 3 hydrOXYzine (VistariL) 25 mg capsule Take 1 capsule (25 mg total) by mouth 2 (two) times a day as needed for itching. 30 capsule 0 vit [id number]-dha 18-1-350 mg capsule Take 1 tablet by mouth in the morning. Indications: , prevention of neural tube defect when . 90 capsule 4 sertraline (ZOLOFT) 50 mg tablet Take 1 tablet (50 mg total) by mouth in the morning. 30 tablet 2 magnesium oxide (MAGOX) 400 mg tablet Take 1 tablet (400 mg total) by mouth in the morning. (Patient not taking: Reported on 03/08/2023) 30 tablet 2 No current facility-administered medications for this visit. Chief Complaint Patient presents with Follow-up 2MO F/U-L/S [facility] MON 11/28-LABS 110/7CHS-SCHD APPT W/PT History of Present Illness Jolene was seen today for follow-up of her tachycardia. She is at 36 weeks, and looking forward to delivery in 1 month. She has not had any chest pain or pressure. She denies any palpitations. She feels better. Her heart rate continues to be somewhat elevated. She has not any lightheadedness or dizziness. She has normal left ventricular function. Past Medical History: Diagnosis Date Asthma Depression Inappropriate sinus tachycardia Polycystic ovary syndrome No data recorded No data recorded No data recorded Past Surgical History: Procedure Laterality Date TONSILLECTOMY Family History Problem Relation Age of Onset Mental illness Mother depression, anxiety Asthma Mother Mental illness Father Other Father breathing problems since COVID Depression Sister No Known Problems Brother Mental illness Maternal Grandmother Heart disease Maternal Grandmother age 44 Diabetes Maternal Grandmother Breast cancer Maternal Grandmother after age 50 Diabetes Maternal Grandfather Dementia Maternal Grandfather Irritable bowel syndrome Paternal Grandmother Diabetes Maternal Uncle Blood Clots Neg Hx Clotting disorder Neg Hx Uterine cancer Neg Hx Colon cancer Neg Hx Pancreatic cancer Neg Hx Ovarian cancer Neg Hx Social History Socioeconomic History Marital status: Single Spouse name: Not on file Number of children: Not on file Years of education: Not on file Highest education level: Not on file Occupational History Not on file Tobacco Use Smoking status: Never Smokeless tobacco: Never Vaping Use Vaping Use: Former Devices: Disposable Substance and Sexual Activity Alcohol use: No Drug use: No Sexual activity: Yes Partners: Male control/protection: None Other Topics Concern Caffeine Use Yes Social History Narrative Not on file Social Determinants of Health Financial Resource Strain: Low Risk (09/18/2022) Overall Financial Resource Strain (CARDIA) Difficulty of Paying Living Expenses: Not hard at all Food Insecurity: No Food Insecurity (03/10/2023) Hunger Screening Food Insecurity - Worry: Never True Food Insecurity - Inability: Never True Transportation Needs: No Transportation Needs (09/18/2022) PRAPARE - Transportation Lack of Transportation (Medical): No Lack of Transportation (Non-Medical): No Physical Activity: Not on file Stress: No Stress Concern Present (09/18/2022) [employer] - Occupational Stress Questionnaire Feeling of Stress : Not at all Social Connections: Moderately Isolated (09/18/2022) Social Connection and Isolation Panel [NHANES] Frequency of Communication with Friends and Family: More than three times a week Frequency of Social Gatherings with Friends and Family: More than three times a week Attends Sabianist Services: Never Active Member of Clubs or Organizations: No Attends Club or Organization Meetings: Never Marital Status: Living with partner Interpersonal Safety: Not on file Review of Systems Review of Systems Constitutional: Positive for malaise/fatigue. Negative for chills, fever, weight gain and weight loss. HENT: Negative for hearing loss, hoarse voice and nosebleeds. Eyes: Negative for blurred vision and double vision. Respiratory: Negative for cough, shortness of breath and wheezing. Hematologic/Lymphatic: Negative for bleeding problem. Bruises/bleeds easily. Skin: Negative for rash and suspicious lesions. Musculoskeletal: Negative for back pain, joint swelling and muscle weakness. Gastrointestinal: Negative for change in bowel habit and hematochezia. Genitourinary: Negative for hematuria. Neurological: Negative for dizziness, headaches, light-headedness, loss of balance and numbness. Psychiatric/Behavioral: Negative for depression. The patient is nervous/anxious. Allergic/Immunologic: Negative for environmental allergies. CARDIOVASCULAR: Please review HPI. Physical Examination General appearance: Alert, oriented and cooperative. In no acute distress. Skin: Warm and dry to touch. Head: Normocephalic, without obvious abnormality, atraumatic. Ears, Nose, Mouth, Throat: Throat clear without erythema or exudate. Dentition intact. Eyes: Conjunctivae unremarkable, EOM intact. Neck: No JVD, No carotid bruit. Neck supple, trachea midline. Respiratory: Clear to auscultation bilaterally, no use of accessory muscles. Cardiovascular: RRR with normal S1 and S2 with no murmurs. Gastrointestinal: Soft, non-tender. Bowel sounds normal. Musculoskeletal: No peripheral edema. Neurologic: Oriented to time, person and place, affect appropriate. No focal/major motor defects noted. Psychiatric: Appropriate mood, memory and judgement. VITAL SIGNS: BP 136/84 (BP Site: Left Arm, BP Postition: Sitting) Pulse 113 Ht 162.6 cm (5' 4 ) Wt 106.6 kg (235 lb) LMP 06/20/2022 SpO2 98% BMI 40.34 kg/m No orders of the defined types were placed in this encounter. There are no discontinued medications. IMPRESSIONS/PLAN 1. Heart palpitations She appears to be doing well without further cardiovascular symptoms. Her heart rate remains elevated consistent with . She will follow-up in 3 months. TODAYS ORDERS No orders of the defined types were placed in this encounter. FOLLOW UP Return in about 3 months (around 06/09/2023). PCP: NO PCP, NO PCP Referring Physician: No referring provider defined for this encounter. documented in this encounter [facility] 03-09-2023 Miscellaneous Notes Left message for patient to remind them to bring their most current medication list with them to their appointment. documented in this encounter [facility] 03-09-2023 Telephone encounter Note Left message for patient to remind them to bring their most current medication list with them to their appointment. [facility] 03-08-2023 Miscellaneous Notes Pt calls states she is soaking through multiple pads throughout the day. States is clear. Does not feel trickling but has soaked pads. Advised pt to come to triage for eval. documented in this encounter [facility] 03-08-2023 Telephone encounter Note Pt calls states she is soaking through multiple pads throughout the day. States is clear. Does not feel trickling but has soaked pads. Advised pt to come to triage for eval. [facility] Work Phone: 03-05-2023 History of Presen t illness Narrative Patient reports regular contractions that are 5-6 minutes apart,rating them a 10/10.. Denies LOF or vaginal bleeding. +FM per patient. Instructed to notify physician if experiencing any of the following: intermittent low back pain abdominal or menstrual like cramping that is comes and goes or is constant vaginal pressure uterine contractions that are regular and timeable water breaks or feels a gush of fluid any vaginal bleeding that is heavier than a menstrual period decrease or absence of baby movement Advised to drink plenty of fluids, take all prescribed medications, and to keep all scheduled appointments documented in this encounter [facility] 03-05-2023 History of Presen t illness Narrative Patient here for routine at 35w2d Denies LOF Positive movement Patient complains of continued ctx. States they have not changed since leaving triage Complains of continued anxiety states she had an anxiety attack on and couple days before that. Has been taking zoloft everyday since 02/19/23 22 y.o. at 35w2d. No VB, LOF. Positive FM. She was seen in the [facility] due to contractions around 02:00 o'clock this morning. UA was positive for ketones. SVE was , unchanged after 1 hour. Patient reports continued contractions occurring every few minutes, she describes the feeling as pressure every few minutes. Able to speak in complete sentences during visit today. She reports she feels like they have become more uncomfortable since being in triage. She has not slept due to being in triage overnight in this appointment this morning. She has tried Tylenol with no relief. She has increased her water intake also with no relief. SVE in the office . Slightly posterior. We discussed this is a slight change from her check in triage, but it could just be a difference and provider check as well. Encouraged her to present to the [facility] if contractions continue, or worsen. She has an NST/DBP it MFM this afternoon. Encouraged her after this visit to go home and taking a shower Benadryl to help her sleep and to continue oral hydration. We discussed that with being we want to do anything to stop her labor, but we also can not do anything to help induce labor. Patient verbalizes understanding. No acute distress noted during visit, able to answer all questions in full sentences. Noted 1 contraction after SVE, no other noted contractions during visit, patient was encouraged to relate a when contraction was happening so uterus could be palpated. Obesity in : Completing NST/DVP as ordered. Has appointments afternoon. DVP on 02/25 5.35 Depression: She was started on 25 mg of Zoloft on 02/19. She has been taking this daily with no change noted. Will increase to 50 mg today. New prescription sent. We discussed she can parts picker new prescription, or take 2 tablets of her 25 mg until gone and then parts picker new prescription. Patient verbalized understanding. Encouraged low threshold for returning back to [facility]. Discussed if contractions continue to present [facility] for monitoring and SVE. Reviewed how to get hold of the CNM on-call GBS next visit Follow-up 1 week with CNM. LORRAINE Zarate APRN-CNP 03/05/23 1106 documented in this encounter [facility] 03-05-2023 Miscellaneous Notes Pt called and said right before bed, started to feel baby move. Then started to feel pain in lower back, and lower abdomen. She feels the pain come every few minutes lasting about 2-3 minutes. Has been having for an hour and a half to two hours consistently. She is 35w2d. Denies vaginal bleeding or leakage of fluid. Endorses good movement. She says has been having ashley jean baptiste for weeks but these are much more uncomfortable. Instructed to come in to [facility] to be seen for ruleout labor. Pt knows where [facility] is and will come in. Discussed can try tylenol to see if pain resolves, but recommend coming in now since has been having for over an hour consistently. [facility] documented in this encounter [facility] 03-05-2023 Telephone encounter Note Pt called and said right before bed, started to feel baby move. Then started to feel pain in lower back, and lower abdomen. She feels the pain come every few minutes lasting about 2-3 minutes. Has been having for an hour and a half to two hours consistently. She is 35w2d. Denies vaginal bleeding or leakage of fluid. Endorses good movement. She says has been having ashley jean baptiste for weeks but these are much more uncomfortable. Instructed to come in to [facility] to be seen for ruleout labor. Pt knows where [facility] is and will come in. Discussed can try tylenol to see if pain resolves, but recommend coming in now since has been having for over an hour consistently. [facility] 02-26-2023 Miscellaneous Notes Pt called on-call SHERIF stating that she is 34wks and fell today at 2pm. She states she did not hit her abdomen but fell over a curb and cut up her hands and knees. She then went home and noticed that a little later she had some brown/reddish discharge in her underwear and that her underwear was wet. She endorses +FM, and denies CTX or a large gush of fluid besides what was in her underwear. She has not noticed any further VB. She reports she just feels uncomfortable and crampy with lower pelvic pressure. When asked, she states she lives 45 minutes away and does not feel like this is severe to the point that she needs to go be evaluated somewhere closer to her home. Discussed that she should be evaluated in [place] as soon as possible and someone should drive her if possible. Warning s/s reviewed for when patient should call 911 for further concerns on her way here. Pt voices understanding and is comfortable with plan. documented in this encounter [facility] 02-26-2023 Telephone encounter Note Pt called on-call SHERIF stating that she is 34wks and fell today at 2pm. She states she did not hit her abdomen but fell over a curb and cut up her hands and knees. She then went home and noticed that a little later she had some brown/reddish discharge in her underwear and that her underwear was wet. She endorses +FM, and denies CTX or a large gush of fluid besides what was in her underwear. She has not noticed any further VB. She reports she just feels uncomfortable and crampy with lower pelvic pressure. When asked, she states she lives 45 minutes away and does not feel like this is severe to the point that she needs to go be evaluated somewhere closer to her home. Discussed that she should be evaluated in [place] as soon as possible and someone should drive her if possible. Warning s/s reviewed for when patient should call 911 for further concerns on her way here. Pt voices understanding and is comfortable with plan. [facility] Work Phone: 02-26-2023 History of Presen t illness Narrative LVM for return call to schedule wkly nst.afion 03/05. Has [facility] appt at 1000. documented in this encounter [facility] 02-25-2023 Miscellaneous Notes Pt called the CNM production assembly operator to report that she has had leaking into her pants all day. She sees the CNM's @ [facility] for care. She was told to come to the [facility] for eval and she agreed. [facility] Telephone encounter Note Pt called the CNM production assembly operator to report that she has had leaking into her pants all day. She sees the CNM's @ [facility] for care. She was told to come to the [facility] for eval and she agreed. [facility] 09-08-2022 Evaluation note Encounter Date Diagnosis Assessment Notes Aug, Acute swimmer's ear of left side (ICD-10 - H60.332) Discussed diagnosis with patient. Use ear drops as prescribed. Discussed proper installation of ear drops, drops should be at room temperature before instilling, lie down with affected ear facing up. After instilling drops gently wiggle ear to help drops reach ear canal, lay with affected ear facing up for 3-5 minutes. Supportive care as discussed, increase fluid intake, Tylenol/Motrin as needed for discomfort, warm compress. Proper ear hygiene discussed. Avoid putting anything inside the ear such as Q-tips, do not use other OTC ear drops unless directed by a provider. Avoid submerging head underwater, avoid water sports for 7-10 days, when showering place cotton ball lightly coated with petroleum jelly as ear plug to prevent water from going into ear, if water inside ear after shower may use rolling chair pusher on lowest cool setting to blow dry. Follow up with PCP or UC if no improvement in the next 2-3 days. Immediate eval for severe ear pain, severe headache, neck pain/stiffness, pain, erythema, or swelling behind the ear, fever, N/V, hearing loss, fever, or any other new or concerning symptoms. Patient verbalizes understanding and is agreeable to treatment plan. [facility] Other 10-04-2022 Evaluation note* Encounter Date Diagnosis Assessment Notes Treatment Notes Treatment Clinical Notes Nov, New daily persistent headache (ICD-10 - G44.52) Due to complexity of symptoms I am referring patient to neurology. I attempted to get MRI ordered and approved, have not heard from them yet. Printed labs for patient to complete. Nov, Memory changes (ICD-10 - R41.3) Nov, Alteration in vision (ICD-10 - H54.7) Nov, Seizure-like activity (ICD-10 - R56.9) [facility] Other 08-30-2022 Evaluation note* Encounter Date Diagnosis Assessment Notes Treatment Notes Treatment Clinical Notes Sep, New daily persistent headache (ICD-10 - G44.52) Patient has some very concerning and troubling symptoms. Labs and imaging ordered. Will follow up as soon as imaging and labs seen. Sep, Confusion and disorientation (ICD-10 - R41.0) Sep, Memory changes (ICD-10 - R41.3) Sep, Nausea and vomiting, unspecified vomiting type (ICD-10 - R11.2) Sep, Alteration in vision (ICD-10 - H54.7) Sep, Incoordination (ICD-10 - R27.9) Sep, Syncope, unspecified syncope type (ICD-10 - R55) Sep, Idiopathic hypotension (ICD-10 - I95.0) [facility] Other 08-28-2022 Hospital Discharge instructions* Discharge Instructions* Fern Busch DO - 10/27/2021 5:55 AM EDT Please follow-up with your new primary care provider in 3 days for your scheduled appointment return to the emergency room for any worsening symptoms worsening dizziness or persistent headache. Any numbness, tingling or weakness. documented in this [facility] Phone: 1(735) 826-510803-20-2022 Evaluation note* Encounter Date Diagnosis Assessment Notes Treatment Notes Treatment Clinical Notes Apr, Contact with and (suspected) exposure to other viral communicable diseases (ICD-10 - Z20.828) Apr, Viral upper respiratory illness (ICD-10 - J06.9) Drink plenty fluids, get plenty of rest. Take Tylenol Motrin as needed for aches pains or fevers. Off work today and tomorrow. Follow-up with your family physician if no improvement in 2 to 3 days Apr, Other Additional time spent conducting pre-visit phone call, screening for symptoms, instructions on social distancing, application and removal of PPE, and cleaning of examination room, equipment and supplies was preformed. Patient education given for testing methodology and results. Patient care instructions given in writting by [facility] document. [facility] Other 12-22-2021 Evaluation note* Encounter Date Diagnosis Assessment Notes Treatment Notes Treatment Clinical Notes Jan, Contact with and (suspected) exposure to other viral communicable diseases (ICD-10 - Z20.828) Jan, Influenza A (ICD-10 - J10.1) Drink plenty of fluids and get plenty of rest. You must self isolate for 4 days starting today. Notify your employer of your positive influenza A results. Take Tylenol Motrin for aches pains or fevers. Take the Zofran as prescribed as needed for nausea. Follow-up with your family physician if no improvement in 2 to 3 days Jan, Fever, unspecified fever cause (ICD-10 - R50.9) Jan, Nausea (ICD-10 - R11.0) Jan, Other Additional time spent conducting pre-visit phone call, screening for symptoms, instructions on social distancing, application and removal of PPE, and cleaning of examination room, equipment and supplies was preformed. Patient education given for testing methodology and results. Patient care instructions given in writting by [facility] document. Additional time spent conducting pre-visit phone call, screening for symptoms, instructions on social distancing, application and removal of PPE, and cleaning of examination room, equipment and supplies was preformed. Patient education given for testing methodology and results. Patient care instructions given in writting by [facility] document. [facility] Other Evaluation note* Diagnosis Dizziness- Primary Dizziness and giddiness Nonintractable headache, unspecified chronicity pattern, unspecified headache type documented in this encounter [facility] Cell>[facility] Work Phone: evaluation noteNo assessment information available [facility] Work Phone: Evaluation note* Diagnosis Orthostasis- Primary Orthostatic hypotension Syncope and collapse documented in this encounter [facility] note* Diagnosis Encounter for care in third trimester of first - Primary uterine contractions in third trimester, antepartum Depression affecting in third trimester, antepartum 35 weeks gestation of [facility] Diagnosis Obesity affecting , antepartum, unspecified obesity type [facility] Diagnosis Heart palpitations- Primary Palpitations [facility] Diagnosis Obesity affecting , antepartum, unspecified obesity type [facility] Diagnosis High-risk first of young woman, third trimester- Primary 36 weeks gestation of [facility] Diagnosis Encounter for care in third trimester of first - Primary Anemia during in third trimester Depression, unspecified depression type [facility] Diagnosis Obesity affecting , antepartum, unspecified obesity type [facility] Diagnosis Obesity affecting , antepartum, unspecified obesity type [facility] Diagnosis Encounter for care in third trimester of first - Primary [facility] Diagnosis Polyhydramnios affecting in third trimester- Primary (normal spontaneous vaginal delivery) Normal delivery Lactating mother care and examination of lactating mother [facility] Diagnosis Heart palpitations- Primary Palpitations [facility]* Diagnosis Recurrent syncope- Primary Inappropriate sinus tachycardia (CMS-HCC) [facility] Diagnosis Encounter for routine follow-up- Primary Counseling for initiation of control method control counseling [facility] Diagnosis Benign essential microscopic hematuria- Primary History of depression Personal history of other mental disorder [facility] Diagnosis POTS (postural orthostatic tachycardia syndrome)- Primary Unspecified tachycardia [facility] Diagnosis Diarrhea, unspecified type- Primary Complication of in first trimester documented in this encounter [facility] note* Diagnosis Absence of menstruation- Primary Nausea and vomiting in Unspecified vomiting of , unspecified as to episode of care Positive test examination or test, positive result Right upper quadrant pain Abdominal pain, right upper quadrant Diarrhea, unspecified type [facility] Diagnosis Vaginal bleeding- Primary Other specified noninflammatory disorder of vagina Miscarriage Unspecified spontaneous without mention of complication documented in this encounter [facility] note* Diagnosis Recurrent syncope- Primary Heart palpitations Palpitations Inappropriate sinus tachycardia POTS (postural orthostatic tachycardia syndrome) Unspecified tachycardia [facility] Diagnosis Missed menses- Primary Encounter for insertion of Mirena IUD documented in this encounter [facility] general Narrative - Reported* Type Description Date Medical History migraine Hospitalization [facility] Other InstructionsNot on filedocumented in this encounter [facility] filedocumented in [facility] in this [facility]ed in this [facility] filedocumented in this encounter [facility] filedocumented in this encounter [facility] filedocumented in this encounter [facility] filedocumented in [facility] filedocumented in [facility] filedocumented in this [facility] filedocumented in this [facility] filedocumented in this [facility] filedocumented in this encounter [facility] filedocumented in this encounter [facility] Advance Directives No Advanced Directives Records FoundDocuments on File Type Date Recorded 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 Expl anation Advance Directives and Living Will Power of Counselor [employer] Advance Directive Response Recorded Date/ Time Advance Directives No December 25, 2016 8:54am Date Activated Date Inactivated Comments 03/31/2023 9:23 PM 04/03/2023 5:31 PM Date Activated Date Inactivated Comments 01/04/2023 8:01 PM 01/04/2023 11:17 PM Date Activated Date Inactivated Comments 12/29/2022 9:45 PM 12/31/2022 3:29 PM Date Activated Date Inactivated Comments 09/18/2022 3:16 PM 09/19/2022 9:10 PM Date Activated Date Inactivated Comments 01/11/2017 4:28 AM 01/12/2017 9:14 PM Latest Code Status on File Code Status Date Activated Date Inactivated Comments Full Code 01/04/2023 8:01 PM 01/04/2023 11:17 PM Code Status History Code Status Date Activated Date Inactivated Comments Full Code 12/29/2022 9:45 PM 12/31/2022 3:29 PM Full Code 09/18/2022 3:16 PM 09/19/2022 9:10 PM Full Code 01/11/2017 4:28 AM 01/12/2017 9:14 PM Advance Directive Response Recorded Date/ Time Advance Directives No December 25, 2016 7:54am Latest Code Status on File Code Status Date Activated Date Inactivated Comments Full Code 01/04/2023 8:01 PM 01/04/2023 11:17 PM Code Status History Code Status Date Activated Date Inactivated Comments Full Code 12/29/2022 9:45 PM 12/31/2022 3:29 PM Full Code 09/18/2022 3:16 PM 09/19/2022 9:10 PM Full Code 01/11/2017 4:28 AM 01/12/2017 9:14 PM Latest Code Status on File Code Status Date Activated Date Inactivated Comments Full Code 03/31/2023 9:23 PM 04/03/2023 5:31 PM Code Status History Code Status Date Activated Date Inactivated Comments Full Code 01/04/2023 8:01 PM 01/04/2023 11:17 PM Full Code 12/29/2022 9:45 PM 12/31/2022 3:29 PM Full Code 09/18/2022 3:16 PM 09/19/2022 9:10 PM Full Code 01/11/2017 4:28 AM 01/12/2017 9:14 PM Latest Code Status on File Code Status Date Activated Date Inactivated Comments Full Code 03/31/2023 9:23 PM 04/03/2023 5:31 PM Code Status History Code Status Date Activated Date Inactivated Comments Full Code 01/04/2023 8:01 PM 01/04/2023 11:17 PM Full Code 12/29/2022 9:45 PM 12/31/2022 3:29 PM Full Code 09/18/2022 3:16 PM 09/19/2022 9:10 PM Full Code 01/11/2017 4:28 AM 01/12/2017 9:14 PM Summary Purpose Family History No Family History Records FoundNo Family History Records FoundNo Family History Records FoundNo Family History Records FoundNo Family History Records FoundNo Family History Records FoundNo Family History Records Found Chief Complaint and Reason for Visit Chief Complaint Rash Chief Complaint Admit Date March 03, 2024 10 :31am Cough, congestion, nausea/vomiting, loos e stool April 11, 2024 2:01pm Reason for Referral Specialty Diagnoses / Procedures Referred By Contac t Referred To Contact Procedures Discharge Follow-Up Fadumo Stevenson [facility] [address] [place] [address] Referral ID Status Reason Start Date Expiration Date V isits Requested Visits Authorized [id number] Pending Review 04/03/2023 04/02/2024 1 1 Specialty Diagnoses / Procedures Referred By Contac t Referred To Contact Procedures Hygiene Fadumo Stevenson [facility] [address] [place] [address] Referral ID Status Reason Start Date Expiration Date V isits Requested Visits Authorized [id number] Pending Review 04/03/2023 04/02/2024 1 1 Specialty Diagnoses / Procedures Referred By Contac t Referred To Contact Procedures Adult diet Abbie Stevensonfer, [facility] [address] [place] [address] Referral ID Status Reason Start Date Expiration Date V isits Requested Visits Authorized [id number] Pending Review 04/03/2023 04/02/2024 1 1 Specialty Diagnoses / Procedures Referred By Contac t Referred To Contact Maternal and Medicine Diagnoses Obesity affecting , antepartum, unspecified obesity type Procedures nonstress test - Maternal Medicine Lorena Smith MD [address] [place] [address] [facility] Maternal Med [address] [place] [address] Referral ID Status Reason Start Date Expiration Date V isits Requested Visits Authorized [id number] Pending Review 03/19/2023 03/18/2024 6 6 Additional Source Comments INFORMATION SOURCE (unrecogn ized section and content) DATE CREATED AUTHOR 09/21/2019 [facility] DATE CREATED AUTHOR AUTHOR'S ORGANIZ ATION 12/07/2021 [facility] DATE CREATED AUTHOR AUTHOR'S ORGANIZ ATION 03/05/2024 [facility] DATE CREATED AUTHOR AUTHOR'S ORGANIZ ATION 07/05/2024 [facility] DATE CREATED AUTHOR AUTHOR'S ORGANIZ ATION 07/05/2024 [facility] DATE CREATED AUTHOR AUTHOR[facility]S ORGANIZ ATION [facility] DATE CREATED AUTHOR AUTHOR'S ORGANIZ ATION 07/20/2024 [facility] REASON FOR VISIT (unrecogniz ed section and content) Reason Comments Non-stress 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 Specialty Diagnoses / Procedures Referred By Contac t Referred To Contact Maternal and Medicine Diagnoses Obesity affecting , antepartum, unspecified obesity type Procedures nonstress test - Maternal Medicine Lorena Smith MD [address] [address] [facility] Maternal Med [address] [place] [address] Referral ID Status Reason Start Date Expiration Date V isits Requested Visits Authorized [id number] Pending Review 03/19/2023 03/18/2024 6 6 Reason Comments High Risk Gestation Non-stress Test Obesity Specialty Diagnoses / Procedures Referred By Contac t Referred To Contact Maternal and Medicine Diagnoses Obesity affecting , antepartum, unspecified obesity type Procedures nonstress test - Maternal Medicine Melissa Barr R, BAR MANAGER-CN [address] [place] [address] [facility] Maternal Med [address] [place] [address] Referral ID Status Reason Start Date Expiration Date V isits Requested Visits Authorized [id number] Pending Review 01/27/2023 01/27/2024 10 10 Reason Comments Dizziness Onset 2 weeks ago. T onight pt started feeling weak, vomited twice, and has a headache. Reason Comments Loss of Consciousness Patient presents t o the Emergency department with complaint of passing out while on the couch. This was unwitnessed. Patient reports that she is having palpitations with some discomfort and is feeling weak today. Sees a whitewater rafting guide in [place] ([place] Reason Comments Routine Visit Reason Comments Non-stress Test High Risk Gestation BMI Uterine Size-Date Discrepancy SMA Carrier Reason Comments Follow-up 2MO F/U-L/S [facility] ER MON 11/28-LABS 110/7CHS-SCHD APPT W/PT Reason Comments High Risk Gestation Non-stress Test Obesity Anemia SMA carrier Specialty Diagnoses / Procedures Referred By Pascale t Referred To Contact Maternal and Medicine Diagnoses Obesity affecting , antepartum, unspecified obesity type Procedures nonstress test - Maternal Medicine Melissa Barr, BAR MANAGER-CNM [address] [place] [address] [facility] Maternal Med [address] [place] [address] Reason Comments 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 Reason Comments MIOL Specialty Diagnoses / Procedures Referred By Pascale collins Referred To Contact Diagnoses Polyhydramnios affecting in third trimester Augustine Richter MD [address] [facility], [address] [address] Referral ID Status Reason Start Date Expiration Date Visits Re quested Visits Authorized [id number] 1 1 Reason Comments Follow-up Syncope Shortness of Breath ER [facility] Reason Comments Care Reason Comments Contraception Reason Comments Follow-up 4MO F/U EM Reason Comments Abdominal Pain Patient to the ER wi th complaint of Right Upper and Lower Abdominal Pain with diarrhea that began Thursday. Patient has tried reports that she has tried Pepto Bismol with any relief. 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 Reason Comments Follow-up 6MO F/U POTS SCHED W /PT NO TESTING Reason Comments Procedure Scheduled Active and Recently Administ ered Medications (unrecognized section and content) Medication Order 10/25/2021 10/26/202110/27/2021 acetaminophen (TYLENOL) tablet 1,000 mg (COMPLETED) 1,000 mg, Oral, ONCE, 1 dose, On 10/27/21 at 0230 0237 (Given - Provid er: Annetta Arteaga RN) ondansetron (ZOFRAN-ODT) disintegrating tablet 4 mg (COMPLETED) 4 mg, Oral, ONCE, 1 dose, On 10/27/21 at 0245 0303 (Given - Provid er: Annetta Arteaga RN) Scheduled Medication Order 08/21/2023 08/22/2023 08/23/2023 sodium chloride 0.9 % bolus 1,000 mL (COMPLETED) 1,000 mL (9.59 mL/kg), IntraVENous, at 983.6 mL/hr, Administer over 61 Minutes, ONCE, On 08/23/23 at 1130, For 1 dose, For adult patients weighing > 55 kg (120 lbs.) and less than <50 years of age initiate 0.9NS at 500 mL/ hr. All bolus orders are to be given over 10 to 15 minutes 1135 (New Bag - Prov ider: Clive Cheatham RN)1314 (Stopped - Provider: Annetta Mortensen RN) sodium chloride 0.9 % bolus 1,000 mL (COMPLETED) 1,000 mL (9.59 mL/kg), IntraVENous, at 1,935.5 mL/hr, Administer over 31 Minutes, ONCE, On 08/23/23 at 1215, For 1 dose, For adult patients weighing > 55 kg (120 lbs.) and less than <50 years of age initiate 0.9NS at 500 mL/ hr. All bolus orders are to be given over 10 to 15 minutes 1224 (New Bag - Prov ider: Clive Cheatham RN)1314 (Stopped - Provider: Annetta Mortensen RN) Scheduled Medication Order 04/01/2023 04/02/2023 04/03/2023 docusate sodium (COLACE) capsule 100 mg 100 mg, oral, 2 times daily, First dose on Thu04/01/23 at 2330, , Look-alike/sound-ali ke medication - verify indication for use. 2330 (Not Given - Provider: Liat Mccracken RN - Reason: Other - Comment: See MAR) 08 (Given - Provider: Gloria Silverman RN)2041 (Given - Provider: Rosa Maria Laurent RN) 0935 (Given - Provider: Gloria Silverman RN) ferrous sulfate tablet 325 mg 325 mg, oral, 2 times daily with meals, First dose on Sammie 04/02/23 at 0800, , Give ferrous sulfate 2 hours before or 4 hours after antacids. 0828 (Given - Provider: Gloria Silverman RN)1817 (Given - Provider: Gloria Silverman RN) 0935 (Given - Provider: Gloria Silverman RN) PNV,calcium 33-gvhx-futgo acid ( PLUS) 27 mg iron- 1 mg tablet 1 tablet 1 tablet, oral, Daily, First dose on Sammie 04/02/23 at 0900, 08 (Given - Provider: Gloria Silverman RN) 935 (Given - Provider: Gloria Silverman RN) polyethylene glycol (GLYCOLAX) packet 17 g 17 g, oral, Daily, First dose on Sammie 04/02/23 at 0900, , Look-alike/sound-ali ke medication - verify indication for use. Dissolve 1 packet (17 gm) in 8 ounces of water, juice, soda, coffee or tea. 827 (Given - Provider: Gloria Silverman RN) 935 (Given - Provider: Gloria Silverman RN) sertraline (ZOLOFT) tablet 50 mg 50 mg, oral, Daily, First dose on Sammie 04/02/23 at 2100, Look-alike/sound-ali ke medication - verify indication for use. 2041 (Given - Provider: Rosa Maria Laurent RN) sodium chloride 0.9 % flush 3 mL 3 mL, intravenous, Every 8 hours, First dose on Sammie 04/02/23 at 0115, , Flush peripheral line per protocol 011 (Not Given - Provider: Liat Mccracken RN - Reason: IV infusing)0831 (Given - Provider: Gloria Silverman RN)171 (Canceled Entry - Provider: Gloria Silverman RN)2041 (Given - Provider: Rosa Maria Laurent RN) 0115 (Not Given - Provider: Rosa Maria Laurent RN - Reason: Contraindicated - Comment: see MAR)0937 (Given - Provider: Gloria Silverman RN) Continuous Medication Order 04/01/2023 04/02/2023 04/03/2023 fentaNYL (PF) 2 mcg/mL - bupivacaine 0.1% in sodium chloride 0.9 % PIEB with PCEA (epidural) (CANCELED) epidural, Continuous, Starting on Thu04/01/23 at 1815, L&D Pre-Delivery, PIEB Trial, TTH only Pump programming and rate changes to be done by Anesthesia Prescriber ONLY. NO additional IM, IV, or oral opiates, sedatives, or hypnotics unless approved by Anesthesia. All additives must be preservative free. RN may discontinue epidural infusion post-procedure/delivery. RN may remove Epidural Catheter post-procedure / delivery unless otherwise specified FOR EPIDURAL USE ONLY Look-alike/sound-alike medication - verify indication for use., LOADING (Bolus) Dose: Other, Enter PIEB LOADING Bolus Dose ( mL ): 20, INTERMITTENT Bolus Dose: 12 mL, INTERMITTENT Bolus Dose Interval: 45 min, PCEA Dose: Other, Enter PCEA Patient Bolus Dose ( mL ): 6, Lock out Interval: Other, Lock out Interval (in minutes): 5, One Hour Dose Limit: 40 mL 1830 (Given - Provider: LARRY Olson)1900 (Handoff - Provider: Heather Rawls RN)1901 (Given - Provider: LARRY Olson)2225 (Controlled Substance Wasted - Provider: Anat Leblanc RN) lactated ringers infusion (CANCELED) 125 mL/hr, intravenous, Continuous, Starting on Thu03/31/23 at 2130, L&D Pre-Delivery 0157 (Rate/Dose Verify - Provider: Isabell Byrne RN)0208 (Rate/Dose Verify - Provider: Isabell Byrne RN)0259 (Stop Bag - Provider: Isabell Byrne RN)0259 (Stop Bag - Provider: Isabell Byrne RN)0300 (New Bag - Provider: Isabell Byrne RN)0358 (Rate/Dose Verify - Provider: Isabell Byrne RN)0423 (Rate/Dose Verify - Provider: Isabell Byrne RN)0633 (Rate/Dose Verify - Provider: Isabell Byrne RN)1038 (Rate/Dose Verify - Provider: Heather Rawls RN)1047 (Rate/Dose Verify - Provider: Heather Rawls RN)1144 (Paused - Provider: Heather Rawls RN)1145 (Restarted - Provider: Heather Rawls RN)1153 (Stop Bag - Provider: Heather Rawls RN)1153 (New Bag - Provider: Heather Rawls RN)1324 (Rate/Dose Change - Provider: Heather Rawls RN)1353 (Rate/Dose Change - Provider: Heather Rawls RN)1608 (Rate/Dose Verify - Provider: Heather Rawls RN)1611 (Paused - Provider: Heather Rawls RN)1612 (Rate/Dose Change - Provider: Heather Rawls RN)1658 (Rate/Dose Change - Provider: Heather Rawls RN)1702 (New Bag - Provider: Heather Rawls RN)1756 (Rate/Dose Change - Provider: Heather Rawls RN)1756 (Paused - Provider: Heather Rawls RN)1842 (New Bag - Provider: Heather Rawls RN)1942 (New Bag - Provider: Anat Leblanc, GIOVANNY)2221 (Stop Bag - Provider: Anat Leblanc, GIOVANNY) lactated ringers infusion 50 mL/hr, intravenous, Continuous, Starting on Thu03/31/23 at 2130, Start after 4 hour oxytocin (PITOCIN) infusion and lactated ringers infusion is completed. oxytocin (PITOCIN) infusion 30 units/500 mL in lactated ringers (0.06 units/mL premix) (CANCELED) 1-20 bismark-units/min (1-20 mL/hr), intravenous, Titrated, Starting on Thu03/31/23 at 2130, L&D Pre-Delivery, Administer via programmable infusion pump. Starting rate is 1 milliunit/minute.Titrate by 1 milliunit/min every 30 minutes until 5 or less contractions occur in a 10 minute segment, averaged over a 30 minute period. Discontinue infusion for the following abnormal FHR tracings: -Category 3 FHR -Category 2 FHR with significant decelerations for greater than 50% of contractions, lasting longer than 60 minutes despite conservative therapeutic interventions -Minimal variability without accelerations that persist for 60 minutes despite conservative therapeutic interventions -Prolonged deceleration not resolved with conservative therapeutic interventions *Tachysystole is defined by the NICHD as more than five contractions in ten minutes, averaged over a 30-minute window., When Tachysystole is present while oxytocin is infusing, and heart rate (FHR) tracing is: Category 1: 1. Perform a maternal position change and give IV bolus of Lactated Ringers 500mL at a rate of 968 mLs/hour for a max of 1,000 mLs, observe for ten minutes. 2. If tachysystole continues, then decrease oxytocin rate by half, observe for 20 minutes, and notify provider. 3. If tachysystole does not resolve, discontinue oxytocin and notify provider. Category 2 with moderate variability and no significant decelerations: 1. Decrease oxytocin rate by half, change maternal position, give IV bolus of Lactated Ringers 500mL at a rate of 968 mLs/hour for a max of 1000 mLs, observe for 20 minutes, and notify provider. 2. If tachysystole does not resolve, discontinue oxytocin and notify provider. Category 2 with significant decelerations or Category 3: 1. Discontinue oxytocin, change maternal position, give IV bolus of Lactated Ringers 500mL at a rate of 968 mLs/hour for a max of 1000 mLs, administer oxygen via non-rebreather mask at 10L, and notify provider. If after at least a 30-minute period of observation, tachysystole resolves and pre-oxytocin checklist criteria is met, may restart oxytocin infusion at: Half of last infusing rate if oxytocin is off for less than 40 minutes. Beginning rate if oxytocin is off for greater than 40 minutes. [Maximum dose 20 milliunits/min unless specifically ordered otherwise by provider]. 1 mL/hour = 1 bismark-unit/min 0036 (Rate/Dose Change - Provider: Isabell Byrne RN)0103 (Rate/Dose Change - Provider: Isabell Byrne RN)0131 (Rate/Dose Change - Provider: Isabell Byrne RN)0157 (Rate/Dose Verify - Provider: Isabell Byrne RN)0200 (Rate/Dose Change - Provider: Isabell Byrne RN)0208 (Rate/Dose Verify - Provider: Isabell Byrne RN)0230 (Rate/Dose Change - Provider: Isabell Byrne RN)0300 (Rate/Dose Change - Provider: Isabell Byrne RN)0331 (Rate/Dose Change - Provider: Isabell Byrne RN)0358 (Rate/Dose Verify - Provider: Isabell Byrne RN)0402 (Rate/Dose Change - Provider: Isabell Byrne RN)0423 (Rate/Dose Verify - Provider: Isabell Byrne RN)0435 (Rate/Dose Change - Provider: Xochitl Kiran RN)0505 (Rate/Dose Change - Provider: Xochitl Kiran RN)0534 (Rate/Dose Change - Provider: Xochitl Kiran RN)0601 (Rate/Dose Change - Provider: Isabell Byrne RN)0609 (Rate/Dose Verify - Provider: Isabell Byrne RN)0631 (Rate/Dose Change - Provider: Isabell Byrne RN)0633 (Rate/Dose Verify - Provider: Isabell Byrne RN)0914 (Rate/Dose Verify - Provider: Heather Rawls RN)1042 (Rate/Dose Change - Provider: Heather Rawls RN)1047 (Rate/Dose Verify - Provider: Heather Rawls RN)1340 (Rate/Dose Change - Provider: Heather Rawls RN)1340 (Rate/Dose Verify - Provider: Heather Rawls RN)1630 (Rate/Dose Change - Provider: Heather Rawls RN)1630 (Rate/Dose Verify - Provider: Heather Rawls RN)1840 (Rate/Dose Verify - Provider: Heather Rawls RN)2253 (Rate/Dose Change - Provider: Liat Mccracken RN) 0059 (Stop Bag - Provider: Liat Mccracken RN) PRN Medication Order 04/01/2023 04/02/2023 04/03/2023 acetaminophen (TYLENOL EXTRA STRENGTH) tablet 1,000 mg 1,000 mg, oral, Every 8 hours PRN, moderate pain - pain scale 4-6, severe pain - pain scale 7-10, Starting on Thu04/01/23 at 2323, 0828 (Given - Provider: Gloria Silverman RN)1818 (Given - Provider: Gloria Silverman RN) 0935 (Given - Provider: Gloria Silverman RN) acetaminophen (TYLENOL) tablet 650 mg 650 mg, oral, Every 4 hours PRN, mild pain - pain scale 1-3, Starting on Thu04/01/23 at 2323, benzocaine-menthoL (DERMOPLAST) topical spray 1 Application 1 Application, topical, As needed, pain, perineum discomfort, Starting on Sammie 04/02/23 at 0111, , May keep at bedside bisacodyL (DULCOLAX) suppository 10 mg 10 mg, rectal, Once as needed, constipation, no relief from docusate or senna/docusate, Starting on Sammie 04/02/23 at 0111, For 1 dose, , Start 2nd day Look-alike/sound-alike medication - verify indication for use. carboprost (HEMABATE) injection 250 mcg 250 mcg, intramuscular, Once as needed, hemorrhage management, Starting on Thu03/31/23 at 2119, For 1 dose, Administer as directed by provider for Hemorrhage management. DO NOT ADMINISTER IV. Contraindicated if patient has a history of asthma or cardiovascular disease hydrocortisone (ANUSOL-HC) 2.5 % rectal cream 1 Application 1 Application, rectal, As needed, hemorrhoids, Starting on Sammie 04/02/23 at 0111, , May keep at bedside, Indications: hemorrhoids ibuprofen (MOTRIN) tablet 800 mg 800 mg, oral, Every 8 hours PRN, cramping, Starting on Thu04/01/23 at 2323, , Look-alike/sound-alike medication - verify indication for use. Take/Give with food or milk. 1424 (Given - Provider: Gloria Silverman RN) 1450 (Given - Provider: Gloria Silverman RN) lactated ringers bolus (COMPLETED) 500 mL, intravenous, at 968 mL/hr, Administer over 31 Minutes, As needed, to improve utero-placental perfusions and/or relieve cord compression and/or tachysystole contraction pattern, Starting on Thu03/31/23 at 2119, For 2 doses, (tacysystole contraction pattern = more than 5 contractions in a 10 minute segment averaged over 30 minutes). Max of 1000 mL 1328 (Bolus from Existing Bag - Provider: Heather Rawls RN)1612 (Bolus from Existing Bag - Provider: Heather Rawls RN) lactated ringers bolus (COMPLETED) 500 mL, intravenous, at 2,000 mL/hr, Administer over 15 Minutes, As needed, administer prior to epidural/intrathecal analgesia, Starting on Thu04/01/23 at 1801, For 1 dose, L&D Pre-Delivery, Administer prior to epidural/intrathecal analgesia. 1745 (Bolus from Existing Bag - Provider: Heather Rawls RN) lactated ringers infusion 999 mL/hr, intravenous, Continuous PRN, hemorrhage treatment, Starting on Thu03/31/23 at 2119, Per infusion pump. For hemorrhage treatment, administer as directed by provider for Hemorrhage management lactated ringers infusion(Linked Group 1) 83 mL/hr, intravenous, Continuous PRN, post-delivery hemostasis, Starting on Thu03/31/23 at 2122, Administer for 4 hours. Administer with Oxytocin bolus and infusion 2223 (Rate/Dose Change - Provider: Anat Leblanc RN) 010 (Restarted - Provider: Liat Mccracken, GIOVANNY)0313 (Stop Bag - Provider: Liat Mccracken, GIOVANNY) lactated ringers infusion(Linked Group 2) 83 mL/hr, intravenous, Continuous PRN, post-delivery hemostasis, Starting on Sammie 04/02/23 at 0111, , Administer for 4 hours. Administer with Oxytocin bolus and infusion lactated ringers infusion 999 mL/hr, intravenous, Continuous PRN, hemorrhage treatment, Starting on Sammie 04/02/23 at 0111, , Per infusion pump. For hemorrhage treatment, administer as directed by provider methylergonovine (METHERGINE) injection 200 mcg (COMPLETED) 200 mcg, intramuscular, Once as needed, hemorrhage treatment, Starting on Thu03/31/23 at 2119, For 1 dose, , For hemorrhage treatment, administer as directed by provider for Hemorrhage management. DO NOT ADMINISTER IV. Contraindicated if patient has a hypersensitivity of Systolic BP greater than 140 or Diastolic BP greater than 90. Look-alike/sound-alike medication - verify indication for use. 2228 (Given - Provider: Anat Leblanc RN) methylergonovine (METHERGINE) injection 200 mcg (COMPLETED) 200 mcg, intramuscular, Once as needed, hemorrhage management, Starting on Thu04/01/23 at 2323, For 1 dose, , Administer as directed by the provider for hemorrhage treatment. DO NOT ADMINISTER IV. Contraindicated if patient has a sensitivity or Systolic BP greater than 140 or Diastolic BP greater than 90. Look-alike/sound-alike medication - verify indication for use. 2228 (Given - Provider: Anat Leblanc RN) miSOPROStoL (CYTOTEC) tablet 1,000 mcg 1,000 mcg, rectal, Once as needed, hemorrhage treatment, Starting on Thu03/31/23 at 2119, For 1 dose, Administer as directed by provider for Hemorrhage management Look-alike/sound-alike medication - verify indication for use. miSOPROStoL (CYTOTEC) tablet 1,000 mcg 1,000 mcg, rectal, Once as needed, hemorrhage management, Starting on Thu04/02/23 at 0111, For 1 dose, , Administer as directed by the provider for hemorrhage management. Look-alike/sound-alike medication - verify indication for use. modified lanolin (LANSINOH) 100 % cream cream 1 Application 1 Application, topical, As needed, sore/cracked nipples, Starting on Thu04/02/23 at 0111, , May keep at bedside morphine injection 5 mg (COMPLETED)(Linked Group 3) 5 mg, intravenous, Every 2 hour PRN, severe pain - pain scale 7-10, Starting on Thu04/01/23 at 1318, For 2 doses, L&D Pre-Delivery, Max cumulative dose 20 mg in 24 hours. Use caution in administering during active stage of labor. Look-alike/sound-alike medication - verify indication for use. 1324 (Given - Provider: Heather Rawls, RN)1617 (Given - Provider: Heather Rawls, RN) ondansetron (PF) (ZOFRAN) injection 4 mg (CANCELED) 4 mg, intravenous, Every 4 hours PRN, nausea, vomiting, Starting on Thu03/31/23 at 2119, L&D Pre-Delivery, Administer over 2-5 minutes. 1440 (Given - Provider: Satinder Gill RN) oxytocin (PITOCIN) bolus from bag solution 10 Units (COMPLETED) 10 Units, intravenous, Administer over 30 Minutes, Once as needed, post-delivery hemostasis, Starting on Thu03/31/23 at 2122, For 1 dose, , Administer via programmable pump with lactated ringers solution 2223 (Bolus from Bag - Provider: Anat Leblanc RN) oxytocin (PITOCIN) infusion 30 units/500 mL in lactated ringers (0.06 units/mL premix)(Linked Group 1) 42 bismark-units/min (42 mL/hr), intravenous, Continuous PRN, for post-delivery hemostasis, Starting on Thu03/31/23 at 2122, Administer for 4 hours. Administer via programmable pump with lactated ringers solution 1 mL/hour = 1 bismark-unit/min 2253 (Rate/Dose Change - Provider: Anat Leblanc RN) 0110 (Restarted - Provider: Liat Mccracken, GIOVANNY)0313 (Stop Bag - Provider: Liat Mccracken, GIOVANNY) oxytocin (PITOCIN) infusion 30 units/500 mL in lactated ringers (0.06 units/mL premix)(Linked Group 2) 42 bismark-units/min (42 mL/hr), intravenous, Continuous PRN, for post-delivery hemostasis, Starting on Thu04/02/23 at 0111, , Administer for 4 hours. Administer via programmable pump with lactated ringers solution 1 mL/hour = 1 bismark-unit/min oxytocin (PITOCIN) injection 10 Units 10 Units, intramuscular, Once as needed, hemorrhage treatment, Starting on Thu03/31/23 at 2119, For 1 dose, administer as directed by provider for Hemorrhage management oxytocin (PITOCIN) injection 10 Units 10 Units, intramuscular, Once as needed, hemorrhage management, Starting on Thu04/02/23 at 0111, For 1 dose, Administer as directed by provider. sodium chloride 0.9 % flush 3 mL 3 mL, intravenous, As needed, line care, to maintain patency, Starting on Sammie 04/02/23 at 0111, tranexamic acid (CYKLOKAPRON) injection 1,000 mg 1,000 mg, intravenous, Administer over 10 Minutes, Every 30 min PRN, hemostasis/ post- hemorrhage, Starting on Thu03/31/23 at 2119, For 2 doses, As directed by provider for hemostasis/ hemorrhage management. Give slow IV push over 10 minutes, may repeat one time in 30 minutes after initial dose tranexamic acid (CYKLOKAPRON) injection 1,000 mg 1,000 mg, intravenous, Administer over 10 Minutes, As needed, hemostasis/ hemorrhage management, Starting on Sammie 04/02/23 at 0111, For 2 doses, , As directed by the provider for hemostasis/ hemorrhage management. Give slow IV push over 10 minutes, may repeat one time 30 minutes after initial dose. varicella virus vaccine live (VARIVAX) injection 0.5 mL 0.5 mL, subcutaneous, During hospitalization, immunization, if no evidence of immunity (less than 0.6 is considered negative), Starting on Sammie 04/02/23 at 0111, For 1 dose, , Before discharge. Obtain Varicella Antibody Screen if titer unavailable or unknown. Look-alike/sound-alike medication - verify indication for use. kang Joe (PREPARATION H TOTABLE) pad 1 Application 1 Application, topical, As needed, hemorrhoids, Starting on Thu04/02/23 at 0111, , May keep at bedside Linked Groups Order Group 1: oxytocin (PITOCIN) infusion 30 units/500 mL in lactated ringers (0.06 units/mL premix)Jump to med 42 bismark-units/min (42 mL/hr), intravenous, Continuous PRN, for post-delivery hemostasis, Starting on Thu03/31/23 at 2121, Administer for 4 hours. Administer via programmable pump with lactated ringers solution 1 mL/hour = 1 bismark-unit/min And lactated ringers infusionJump to med 83 mL/hr, intravenous, Continuous PRN, post-delivery hemostasis, Starting on Thu03/31/23 at 2122, Administer for 4 hours. Administer with Oxytocin bolus and infusion Group 2: oxytocin (PITOCIN) infusion 30 units/500 mL in lactated ringers (0.06 units/mL premix)Jump to med 42 bismark-units/min (42 mL/hr), intravenous, Continuous PRN, for post-delivery hemostasis, Starting on Sammie 04/02/23 at 0111, , Administer for 4 hours. Administer via programmable pump with lactated ringers solution 1 mL/hour = 1 bismark-unit/min And lactated ringers infusionJump to med 83 mL/hr, intravenous, Continuous PRN, post-delivery hemostasis, Starting on Sammie 04/02/23 at 0111, , Administer for 4 hours. Administer with Oxytocin bolus and infusion Group 3: morphine injection 2 mg (COMPLETED) 2 mg, intravenous, Every 2 hour PRN, moderate pain - pain scale 4-6, Starting on Thu04/01/23 at 1318, For 2 doses, L&D Pre-Delivery, Max cumulative dose 20 mg in 24 hours. Use caution in administering during active stage of labor. Look-alike/sound-alike medication - verify indication for use. Or morphine injection 5 mg (COMPLETED)Jump to med 5 mg, intravenous, Every 2 hour PRN, severe pain - pain scale 7-10, Starting on Thu04/01/23 at 1318, For 2 doses, L&D Pre-Delivery, Max cumulative dose 20 mg in 24 hours. Use caution in administering during active stage of labor. Look-alike/sound-alike medication - verify indication for use. Scheduled Medication Order 06/26/2024 06/27/2024 06/28/2024 ondansetron (ZOFRAN) injection 4 mg (COMPLETED) 4 mg, IntraVENous, ONCE, 1 dose, On Thu06/28/24 at 1500 1528 (Given - Provid er: Leena Hatfield RN) sodium chloride 0.9 % bolus 1,000 mL (COMPLETED) 1,000 mL (9.59 mL/kg), IntraVENous, at 983.6 mL/hr, Administer over 61 Minutes, ONCE, On Thu06/28/24 at 1500, For 1 dose 1526 (New Bag - Prov ider: Leena Hatfield RN)1627 (Stopped - Provider: Leena Hatfield RN) Care Teams (unrecognized sec tion and content) Team Status: Active Member Role Status Dates PHYSICIAN NO FAMILY Primary Care Provider Active Team Status: Active Member Role Status Dates PHYSICIAN NO FAMILY Primary Care Provider Active Start: March 03, 2024 Alpesh Singh MD Attending Provider Active Start: March 03, 2024 Team Status: Inactive Member Role Status Dates PHYSICIAN NO FAMILY Primary Care Provider Active Start: April 11, 2024 End: April 11, 2024 Tyra Drake APRN Attending Provider Active Start: April 11, 2024 End: April 11, 2024 Team Status: Inactive Member Role Status Dates PHYSICIAN NO FAMILY Primary Care Provider Active Start: December 29, 2023 End: December 29, 2023 Thu Carmona APRN Attending Provider Active Start: December 29, 2023 End: December 29, 2023 Flat Surfacer Relationship Specialty Start Date End Date No Pcp, [place] [address] PCP - General Family Medicine 06/30/23 Flat Surfacer Relationship Specialty Start Date End Date No Pcp, [place] [address] PCP - General Family Medicine 08/26/22 Flat Surfacer Relationship Specialty Start Date End Date No Pcp, [place] [address] PCP - General Family Medicine 08/26/22 Flat Surfacer Relationship Specialty Start Date End Date No Pcp, [place] [address] PCP - General Family Medicine 08/26/22 Flat Surfacer Relationship Specialty Start Date End Date No Pcp, [place] [address] PCP - General Family Medicine 08/26/22 Flat Surfacer Relationship Specialty Start Date End Date No Pcp, [place] [address] PCP - General Family Medicine 08/26/22 Flat Surfacer Relationship Specialty Start Date End Date No Pcp, [place] [address] PCP - General Family Medicine 08/26/22 Flat Surfacer Relationship Specialty Start Date End Date No Pcp, [place] [address] PCP - General Family Medicine 08/26/22 Flat Surfacer Relationship Specialty Start Date End Date No Pcp, [place] [address] PCP - General Family Medicine 08/26/22 Flat Surfacer Relationship Specialty Start Date End Date No Pcp, [place] [address] PCP - General Family Medicine 08/26/22 Flat Surfacer Relationship Specialty Start Date End Date No Pcp, [place] [address] PCP - General Family Medicine 08/26/22 Flat Surfacer Relationship Specialty Start Date End Date No Pcp, [place] [address] PCP - General Family Medicine 08/26/22 Flat Surfacer Relationship Specialty Start Date End Date No Pcp, [place] [address] PCP - General Family Medicine 08/26/22 Flat Surfacer Relationship Specialty Start Date End Date No Pcp, [place] [address] PCP - General Family Medicine 06/30/23 Flat Surfacer Relationship Specialty Start Date End Date No Pcp, [place] [address] PCP - General Family Medicine 06/30/23 Flat Surfacer Relationship Specialty Start Date End Date No Pcp, [place] [address] PCP - General Family Medicine 08/26/22 Flat Surfacer Relationship Specialty Start Date End Date No Pcp, [place] [address] PCP - General Family Medicine 06/30/23 Flat Surfacer Relationship Specialty Start Date End Date No Pcp, [place] [address] PCP - General Family Medicine 06/30/23 Flat Surfacer Relationship Specialty Start Date End Date No Pcp, [place] [address] PCP - General Family Medicine 06/30/23 Flat Surfacer Relationship Specialty Start Date End Date No Pcp, [place] [address] PCP - General Family Medicine 06/30/23 Flat Surfacer Relationship Specialty Start Date End Date No Pcp, [place] [address] PCP - General Family Medicine 06/30/23 Flat Surfacer Relationship Specialty Start Date End Date No Pcp, [place] [address] PCP - General Family Medicine 06/30/23 Flat Surfacer Relationship Specialty Start Date End Date No Pcp, [place] [address] PCP - General Family Medicine 06/30/23 Goals (unrecognized section and content) Goals may be documented in a n alternate section FOR RECORDS PERTAINING TO PATIENTS WHO ARE OR HAVE BEEN ENROLLED IN A CHEMICAL DEPENDENCY/SUBSTANCEABUSE PROGRAM, SOME INFORMATION MAY BE OMITTED. This clinical summary was aggregated from multiple sources. Caution should be exercised in using it in the provision of clinical care. This summary normalizes information from multiple sources, and as a consequence, information in this document may materially change the coding, format and clinical context of patient data. In addition, data may be omitted in some cases. CLINICAL DECISIONS SHOULD BE BASED ON THE PRIMARY CLINICAL RECORDS. [facility]. provides no warranty or guarantee of the accuracy or completeness of information in this document.
--- NOTE | 2024-07-26 23:25 | ED_ITS ---
HPI HPI - Extremity Injury (Lower) General Chief Complaint: Extremity Injury, Lower Stated Complaint: LEFT LOWER EXTREMITY INJURY Time Seen by Provider: 07/26/24 23:17 Mode of arrival: Wheelchair Limitations: no limitations History of Present Illness HPI Narrative: states she stood up from the commode and dislocated her left patella. States it went back in place. Was seen at urgent care the next day(3 days ago). xray neg for fracture. 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 Now presents complaining increased pain of her left knee down to her foot and prickly sensation of her left lower leg. No weakness. Able to walk but painful. No obvious swelling of the leg. No fever or chest pain Related Data Home Medications ?Medication ?Instructions ?Recorded ?Confirmed midodrine 2.5 mg tablet mg 07/26/24 Allergies Allergy/AdvReac Type Severity Reaction Status Date / Time No Known Drug Allergies Allergy Verified 12/29/22 15:03 Review of Systems ROS Status of ROS 10 or more systems reviewed and unremark able except as noted in history and below PFSH PFSH Social History Little interest or pleasure in doing things: not at all Feeling down, depressed, or hopeless: not at all Exam Constitutional Vital Signs, click to edit/add: Last Vital Signs Temp 98.3 F 07/26/24 22:46 Pulse 104 H 07/26/24 22:46 Resp 18 07/26/24 22:46 BP 112/82 07/26/24 22:46 Pulse Ox 99 07/26/24 22:46 O2 Del Method Room Air 07/26/24 22:46 Common normals: no apparent distress, average body habitus, oriented x3, no limitations, healthy appearing, alert and well nourished [facility] Common normals: normocephalic and head/scalp atraumatic Eye Common normals: PERRL and EOMs intact bilaterally Respiratory Common normals: normal respiratory effort, no retractions, no use of accessory muscles and clear to auscultation bilaterally Cardio Common normals: regular rate, regular rhythm, S1 normal heart sound and S2 no rmal heart sound Extremity Other: left knee grossly normal in appearance. No swelling or erythema. left calf not swollen. Has tenderness of left knee, left lower leg and ankle. Neuro Common normals: oriented x3, CN's II-XII intact bilaterally, moves all extremities, no focal motor deficits and no sensory deficits noted (sensation LLE intact light touch) Psych Appearance: grossly normal Course Vital Signs Vital signs: Vital Signs Temperature 98.3 F 07/26/24 22:46 Pulse Rate 104 H 07/26/24 22:46 Respiratory Rate 18 07/26/24 22:46 Blood Pressure 112/82 07/26/24 22:46 Pulse Oximetry 99 07/26/24 22:46 Oxygen Delivery Method Room Air 07/26/24 22:46 Temperature 98.3 F 07/26/24 22:46 Pulse Rate 104 H 07/26/24 22:46 Respiratory Rate 18 07/26/24 22:46 Blood Pressure 112/82 07/26/24 22:46 Pulse Oximetry 99 07/26/24 22:46 Oxygen Delivery Method Room Air 07/26/24 22:46 MDM - Extremity Injury (Lower) MDM Narrative Medical decision making narrative: patella dislocation and spontaneous reduction 5 days ago. next day seen at urgent care and reports xray neg. Presents here with increased pain of her knee and also her leg. 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 Knee is tender but not swollen or discolored. Sensation intact to light touch. labs with mild elevation of CRP. d-dimer neg. Treated with solumedrol and leg now feels better. Dischared to follow up with ortho in 2 days Discharge Plan Discharge Chief Complaint: Extremity Injury, Lower Clinical Impression: Dislocated patella Patient Disposition: Home, Self-Care Prescriptions / Home Meds: No Action midodrine 2.5 mg tablet Print Language: Lithuanian Instructions: Knee Immobilizer (ED) Additional Instructions: follow up with orthopedics in a couple of days as scheduled Referrals: Physician,Non-Staff, MD [Primary Care Provider] - 1 week
[2024-07-26 23:59] LABS: Basophils Percent Auto 0.4 % (0.2-2.0); Eosinophils Absolute Auto 0.1 10^3/uL (0.0-0.7); Eosinophils Percent Auto 1.5 % (0.9-7.0); Immature Granulocytes Abs Auto 0.03 10^3/uL (0.00-0.03); Immature Granulocytes Pct Auto 0.3 % (0.0-0.5); Lymphocytes Absolute Auto 2.7 10^3/uL (1.2-3.8); Lymphocytes Percent Auto 29.2 % (20.5-60.0); Mean Corpuscular HGB Conc 32.4 g/dL (29.9-35.2); Mean Corpuscular Hemoglobin 25.3 pg (26.7-34.0); Mean Corpuscular Volume 78.3 fL (81.0-99.0); Mean Platelet Volume 12.4 fL (9.5-13.5); Monocytes Absolute Auto 0.6 10^3/uL (0.3-0.8); Monocytes Percent Auto 6.8 % (1.7-12.0); Neutrophils Absolute Auto 5.8 10^3/uL (1.4-6.5); Neutrophils Percent Auto 61.8 % (43.0-75.0); Platelet Count 254 10^3/uL (150-450); Red Blood Count 4.34 10^6/uL (4.20-5.40); Red Cell Distribution Width 14.2 % (11.0-15.0); White Blood Count 9.3 10^3/uL (4.0-11.0)
[2024-07-27 00:02] VITALS: PULSE 88
--- NOTE | 2024-07-27 00:08 | PC.NURSE ---
Pt presents to ER for left knee pain that started Thursday after getting up from the toilet Pt states the knee dislocates and she can see her kneecap move to the side of the knee but denies ever being diagnosed with dislocation per xrays Pt has seen ortho and has an appointment scheduled [facility] but states they did nothing for her This nurse explains that she most likely will benefit from an MRI Pt complains of numbness up the back of her left thigh and pain that shoots down through the leg and into the left put Pt reports decreased ability to move her toes and coldness is noted to the foot Pt states she is unable to bear weight and the pain is getting worse
[2024-07-27 00:11] LABS: Anion Gap 11.9; BUN Creatinine Ratio 26.6; C Reactive Protein 2.01 mg/dL (<=0.50); Calcium 9.3 mg/dL (8.5-10.1); Carbon Dioxide 28.4 mmol/L (21.0-32.0); Chloride 104 mmol/L (98-107); Estimated GFR (African America >60 (>=60 mL/min/1.73m^2); Estimated GFR (Non-African Ame >60 (>=60 mL/min/1.73m^2); Glucose 114 mg/dL (74-106); Potassium 3.3 mmol/L (3.5-5.1); Sodium 141 mmol/L (136-145)
[2024-07-27] MEDS: METHYLPREDNISOLONE SOD SUCC PF 125 MG/2 ML VIAL IVP (00:21)
[2024-07-27 00:45] LABS: D Dimer 0.26 mg/L FEU (<=0.59)
== END 2024-07-27 01:55 | disposition home or self-care (01) ==
PROVIDERS: Emergency Provider Internal Medicine
DX: S83.005A Unspecified dislocation of left patella, initial encounter (principal); X58.XXXA Exposure to other specified factors, initial encounter
CPT/HCPCS: 36415; 80048; 85025; 85378; 86140; 96374; 99284; J2919

== ENCOUNTER 2024-11-07 10:54 | Emergency (ER) | payer OTHER, SELFPAY ==
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
--- OUTSIDE RECORDS SUMMARY | 2024-11-07 09:54 | XMS_ITS | Encounter Summary ---
Author Organization [facility] tem Address [id number] [address] [place] [address] Care Team Providers Care Sql Bi Developer Name Role Phone Cristiane Andino AGRICULTURAL REAL ESTATE AGENT-LIBRARY INFORMATION TECHNICIAN Primary Care Provider Encounter Details Date Type Department Care Team (Late st Contact Info) Description 11/07/2024 9:54 AM EDT - 11/07/2024 11:06 AM EDT Emergency [facility] - Emergency [address] [place] [address] Discharge Disposition: Left Without Treatment Social History Tobacco Use Types Packs/Day Years Used Date Smoking Tobacco: Never Smokeless Tobacco: Never Alcohol Use Standard Drinks/Week Comments Yes 0 (1 standard drink = 0.6 oz pur e alcohol) [facility] Utilities Answer Date Recorded In the past 12 months has [employer], gas, oil, or water [employer] threatened to shut off services in your [...] week 08/29/2024 How often do you attend chur ch or hinduism services? Never 08/29/2024 Do you belong to any clubs o r organizations such as bahai groups, unions, fraternal or athletic groups, or [...] Answer Date Recorded Total Score 0 10/24/2024 [facility] - Occupational Stress [...] things needed for daily living? No 09/20/2024 [place] Depression Scale Answer Date Recorded [place] Depression Scale Total 1 06/12/2023 The thought [...] Recorded Do you need help finding a [facility] career center and/or a training program? No [...] on file documented as of this encounter Medications at Time of Discharge ascorbic acid (VITAMIN C) 500 mg tabletIndications :Iron deficiency anemia, unspecified iron deficiency anemia type Take 1 tablet (500 mg total) by mouth in the morning. 90 tablet 1 09/22/2024 ferrous sulfate 325 (65 FE) MG tabletIndications :Iron deficiency anemia, unspecified iron deficiency anemia type Take 1 tablet (325 mg total) by mouth in the morning. 30 tablet 3 09/22/2024 fludrocortisone (FLORINEF) 0.1 mg tabletIndications :POTS (postural orthostatic tachycardia syndrome),Syncope , unspecified syncope type TAKE 1 TABLET BY MOUTH IN THE MORNING AND 1 TABLET BEFORE BEDTIME 180 tablet 1 10/16/2024 hydrOXYzine (ATARAX) 10 mg tabletIndications :MARTY (generalized anxiety disorder) Take 1 tablet (10 mg total) by mouth 3 (three) times a day as needed for itching. 30 tablet 10/24/2024 metoprolol tartrate (LOPRESSOR) 25 mg tabletIndications :POTS (postural orthostatic tachycardia syndrome) Take 0.5 tablets (12.5 mg total) by mouth in the morning and 0.5 tablets (12.5 mg total) before bedtime. Do all this for 90 days. 30 tablet 2 10/12/2024 01/10/2025 midodrine (PROAMATINE) 5 mg tabletIndications :POTS (postural orthostatic tachycardia syndrome),Syncope , unspecified syncope type TAKE 1 TABLET BY MOUTH THREE TIMES A DAY 270 tablet 1 10/18/2024 semaglutide, weight loss, (WEGOVY) 0.25 mg/0.5 mL pen injectorIndicatio ns:Prediabetes,In sulin resistance,Cardio vascular risk factor,Metabolic syndrome,Family history of heart disease,Family history of diabetes mellitus Inject 0.5 mL (0.25 mg total) under the skin every 7 days. 2 mL 2 10/24/2024 sertraline (ZOLOFT) 25 mg tabletIndications :MARTY (generalized anxiety disorder) Take 1 tablet (25 mg total) by mouth in the morning. 30 tablet 2 10/24/2024 documented as of this encounter Plan of Treatment Upcoming Encounters Date Type Department Care Team (Late st Contact Info) Description 11/24/2024 3:20 PM EDT Office Visit [facility] [address] [facility] [place] [address] Cristiane Andino N, AGRICULTURAL REAL ESTATE AGENT-LIBRARY INFORMATION TECHNICIAN [address] [place] [phone] 01/23/2025 1:00 PM EST Office Visit [facility] [address] [facility] [address] [place] [phone] Pacheco Hernandez MD [address] [place] [address] documented as of this encounter Goals Goal Patient Goal Type Associated Problems Recent Progress Patient-Stated? Author home General Yes Aurelia Zafar LSW Note: Evaluation of progress towards goal: Safe dc transition from hospital to home with family support. documented as of this encounter Visit Diagnoses Not on filedocumented in this encounter Additional Health Concerns Assessment Noted Time PHQ-9 Depression Total Score: 0 10/25/19 3:10 PM EDT A Body Mass Index follow-up plan has been documented for the patient 10/24/2024 4:00 PM EDT documented as of this encounter Care Teams Sql Bi Developer Relationship Specialty Start Date End Date Cristiane Andino, AGRICULTURAL REAL ESTATE AGENT-LIBRARY INFORMATION TECHNICIAN [address] [place] [phone] PCP - General Family Medicine 09/26/24 documented as of this encounter
[2024-11-07 11:02] VITALS: BP 120/76; PULSE 76; TEMP 36.4; O2SAT 95; BMI 41.2
--- OUTSIDE RECORDS SUMMARY | 2024-11-07 11:08 | XMS_ITS | Clinical Summary ---
Author Organization [facility] Address [address] [facility], [address] [place] [address] Care Team Providers Care Bowl Sander Name Role Phone Unavailable Primary Care Provider Unavailabl e Allergies No known active allergies Medications NONFORMULARY Oral BC daily Act con acetaminophen (TYLENOL) 325 MG tablet Take 2 tablets by mouth every 6 hours as needed for Pain Active ibuprofen (ADVIL;MOTRIN) 200 MG tablet Take 1 tablet by mouth every 6 hours as needed for Pain Active famotidine (PEPCID) 20 MG tablet Take 1 tablet by mouth 2 times daily 60 tablet 07/07/19 24 Active Additional Information Patient not taking.Reported on 06/28/2024 ondansetron (ZOFRAN-ODT) 4 MG disintegrating tablet Take 1 tablet by mouth 3 times daily as needed for Nausea or Vomiting 21 tablet 07/07/19 24 Active Additional Information Patient not taking.Reported on 06/28/2024 dicyclomine (BENTYL) 10 MG capsule Take 1 capsule by mouth 4 times daily (before meals and nightly) for 10 days 40 capsule 07/07/19 24 Active Active Problems Comments Yes No known active problems Social History Tobacco Use Types Packs/Day Years Used Date Smoking Tobacco: Never Smokeless Tobacco: Never Tobacco Cessation:Counseling Given: Not Answered Alcohol Use Standard Drinks/Week Comments Never 0 (1 standard drink = 0.6 oz pur e alcohol) AUDIT-C Answer Date Recorded Q1: How often do you have a drink containing alcohol? Never 08/23/2023 Q2: How many drinks containi ng alcohol do you have on a typical day when you are drinking? Patient does not drink Q3: How often do you have si x or more drinks on one occasion? Never 08/23/2023 Interpersonal Safety Domain Source: IP Abuse Scr eening Answer Date Recorded Physical abuse Denies 06/28/2024 Verbal abuse Denies 06/28/2024 Emotional abuse Denies 06/28/2024 Financial abuse Denies 06/28/2024 Sexual abuse Denies 06/28/2024 Comments Yes Sex and Gender Information Value Date Recorded Sex Assigned at Not on file Legal Sex Female 8:32 AM EDT Gender Identity Not on file Sexual Orientation Not on file Last Filed Vital Signs Vital Sign Reading Time Taken Comments Blood Pressure 122/80 07/02/2024 3:35 PM EDT Pulse 88 07/02/2024 3:35 PM EDT Temperature 36.3 C (97.4 F) 07/02/2024 3:35 PM EDT Respiratory Rate 20 07/02/2024 3:35 PM EDT Oxygen Saturation 99% 07/02/2024 3:35 PM EDT Inhaled Oxygen Concentration - - Weight 104.3 kg (230 lb) 06/28/2024 1:47 PM EDT Height 160 cm (5' 3 ) 06/28/2024 1:47 PM EDT Body Mass Index 40.74 06/28/2024 1:47 PM EDT Plan of Treatment Health Maintenance Due Date Last Done Comments Depression Screen 2014 HIV screen 2017 HPV vaccine (1 - 3-dose series) 2017 Chlamydia/GC screen 2018 Hepatitis C screen 2020 COVID-19 Vaccine ( season) 2023 10/31/2020, 10/10/2020 Pap smear 11/30/2023 Flu vaccine (#1) 09/30/2024 11/24/2022 DTaP/Tdap/Td vaccine (8 - Td or Tdap) 01/06/2033 01/06/2023, 11/01/2014, 11/26/2007, Additional history exists Respiratory Syncytial Virus (RSV) or age 60 yrs+ (1 - 1-dose 75+ series) 2077 Hepatitis B vaccine Completed 05/22/2004, 05/22/2004, 09/07/2003, Additional history exists Pneumococcal 0-49 years Vaccine Aged Out 05/22/2004, 09/07/2003, 04/25/2003 No longer eligible based on patient's age to complete this topic Hib vaccine Completed 12/18/2005, 05/01, 09/07/2003, Additional history exists Measles,Mumps,Rubella (MMR) vaccine Discontinued 11/26/2007, 12/18/2005 Polio vaccine Completed 11/26/2007, 05/01, 05/22/2004, Additional history exists Varicella vaccine Completed 11/01/2014, , 12/18/2005 Meningococcal (ACWY) vaccine Completed 03/28/2020 Hepatitis A vaccine Completed 04/30/2020, Meningococcal B vaccine Completed 04/30/2020, 03/28 [place]
--- OUTSIDE RECORDS SUMMARY | 2024-11-07 11:08 | XMS_ITS | Clinical Summary ---
Author Organization [facility] Address [address] [place] [address] Care Team Providers Care Business Services Officer Name Role Phone Unavailable Primary Care Provider Unavailabl e Allergies Active Allergy Reactions Criticality Noted Date Comments Morphine GI intolerance 07/28/2024 Medications ondansetron ODT (Zofran-ODT) 4 MG disintegrating tablet Take 4 mg by mouth every 8 (eight) hours if needed 5 Active midodrine (Proamatine) 2.5 MG tablet Take 2.5 mg by mouth in the morning and 2.5 mg in the evening. 5 Active Ivabradine HCl 5 MG tablet Take 5 mg by mouth in the morning and 5 mg in the evening. 4 Active Family History Medical History Relation Name Comments Mental illness Father Anxiety disorder Mother Asthma Mother Depression Mother Relation Name Status Comments Father Mother Social History Tobacco Use Types Packs/Day Years Used Date Smoking Tobacco: Never Smokeless Tobacco: Never Tobacco Cessation:Counseling Given: Not Answered Alcohol Use Standard Drinks/Week Comments Yes 0 (1 standard drink = 0.6 oz pur e alcohol) Comments Unknown Sex and Gender Information Value Date Recorded Sex Assigned at Not on file Legal Sex Female 7:26 PM EDT Gender Identity Not on file Sexual Orientation Not on file Last Filed Vital Signs Vital Sign Reading Time Taken Comments Blood Pressure - - Pulse - - Temperature - - Respiratory Rate - - Oxygen Saturation - - Inhaled Oxygen Concentration - - Weight 78.5 kg (173 lb) 08/20/2020 12:00 PM EDT Height 160 cm (5' 3 ) 08/20/2020 12:00 PM EDT Body Mass Index 30.65 08/20/2020 12:00 PM EDT Plan of Treatment Health Maintenance Due Date Last Done Comments Influenza Vaccine (#1) 2024 11/24/2022
--- OUTSIDE RECORDS SUMMARY | 2024-11-07 11:08 | XMS_ITS | Encounter Summary ---
Author Organization [facility] tem Address [id number] [address] [place] [address] Care Team Providers Care Horser Up Name Role Phone Cristiane Andino BRIDGE MANAGER-STAGE SETTING PAINTER APPRENTICE Primary Care Provider Encounter Details Date Type Department Care Team (Late st Contact Info) Description 11/08/2022 Documentation [facility] - Labor [address] [place] [phone] Federica Woods, BRIDGE MANAGER-CNM [address] [place] [address] Social History Tobacco Use Types Packs/Day Years Used Date Smoking Tobacco: Never Smokeless Tobacco: Never Alcohol Use Standard Drinks/Week Comments No 0 (1 standard drink = 0.6 oz pur e alcohol) Social Connection and Isolat ion Panel [NHANES] Answer Date Recorded In a typical week, how many times do you talk on the phone with family, friends, or neighbors? More than three times a week 09/18/2022 How often do you get togethe r with friends or relatives? More than three times a week 09/18/2022 How often do you attend chur ch or taoist services? Never 09/18/2022 Do you belong to any clubs o r organizations such as sikhism groups, unions, fraternal or athletic groups, or school groups? No 09/18/2022 How often do you attend meet ings of the clubs or organizations you belong to? Never 09/18/2022 Are you , , di vorced, , never , or living with a partner? Living with partner 09/18/2022 AUDIT-C Answer Date Recorded Q1: How often do you have a drink containing alcohol? Never 09/18/2022 Q2: How many drinks containi ng alcohol do you have on a typical day when you are drinking? Patient does not drink Q3: How often do you have si x or more drinks on one occasion? Never 09/18/2022 Overall Financial Resource Strain (CARDIA) Answe r Date Recorded How hard is it for you to pa y for the very basics like food, housing, medical care, and heating? Not hard at all 09/18/2022 PHQ-2 Answer Date Recorded Total Score 1 09/18/2022 [facility] [place] of Occupat ional Health - Occupational Stress Questionnaire Answer Date Recorded Do you feel stress - tense, restless, nervous, or anxious, or unable to sleep at night because your mind is troubled all the time - these days? Not at all 09/18/2022 PRAPARE - Transportation Answer Date Re corded In the past 12 months, has l ack of transportation kept you from medical appointments or from getting medications? No 08/31 In the past 12 months, has l ack of transportation kept you from meetings, work, or from getting things needed for daily living? No 09/18/2022 [place] Depression Scale Answer Date Recorded [place] Depression Scale Total 9 10/21/2022 The thought of harming myself has occurred to me . Never 10/21/2022 Childcare Answer Date Recorded Do problems getting child ca re make it difficult for you to work or study? No 09/18/2022 Employment Answer Date Recorded Do you need help finding a l ocal career center and/or a training program? No 09/18/2022 Purpose - Life Answer Date Recorded Purpose and direction in life Unknown Comments Yes Sex and Gender Information Value Date Recorded Sex Assigned at Not on file Legal Sex Female 12:01 PM EDT Gender Identity Not on file Sexual Orientation Not on file documented as of this encounter Plan of Treatment Upcoming Encounters Date Type Department Care Team (Late st Contact Info) Description 11/24/2024 3:20 PM EDT Office Visit [facility] [address] [facility] [place] [address] Cristiane Andino, BRIDGE MANAGER-STAGE SETTING PAINTER APPRENTICE [address] [facility] [place] [address] 01/23/2025 1:00 PM EST Office Visit [facility] [address] [facility] [address] [place] [address] Pacheco Hernandez MD [address] [place] [address] documented as of this encounter Goals Goal Patient Goal Type Associated Problems Recent Progress Patient-Stated? Author home General Yes Aurelia Zafar LSW Note: Evaluation of progress towards goal: Safe dc transition from hospital to home with family support. documented as of this encounter Visit Diagnoses Not on filedocumented in this encounter Additional Health Concerns Infection Onset Date Last Indicated Resolved Time COVID-19 Rule-Out 02/17/2024 02/17/2024 02/17/2024 6:31 PM EST Respiratory Rule-Out 04/13/2024 04/13/2024 025 3:13 AM EST Respiratory Rule-Out 08/30/2024 08/30/2024 025 7:47 PM EDT Assessment Noted Time PHQ-9 Depression Total Score: 1 09/19/19 23 4:08 PM EDT documented as of this encounter Care Teams Horser Up Relationship Specialty Start Date End Date Cristiane Andino, BRIDGE MANAGER-STAGE SETTING PAINTER APPRENTICE [address] [facility] [place] [address] PCP - General Family Medicine 09/26/24 documented as of this encounter
--- OUTSIDE RECORDS SUMMARY | 2024-11-07 11:08 | XMS_ITS | Encounter Summary ---
Author Organization [facility] Address [id number] [address] [place] [address] Care Team Providers Care Associate Medical Director Name Role Phone Cristiane Andino OVERNIGHT CASHIER-SUPERVISOR URANIUM PROCESSING Primary Care Provider Reason for Visit * Reason Comments Med Refill Encounter Details Date Type Department Care Team (Late st Contact Info) Description 12/18/2020 Refill [facility] [address] [place] [phone] Eulalia Mendoza, OVERNIGHT CASHIER-SUPERVISOR URANIUM PROCESSING [address] [place] [address] Encounter for surveillance of contraceptive pills Social History Tobacco Use Types Packs/Day Years Used Date Smoking Tobacco: Never Smokeless Tobacco: Never Alcohol Use Standard Drinks/Week Comments No 0 (1 standard drink = 0.6 oz pur e alcohol) Childcare Answer Date Recorded Childcare Unknown 08/11/2018 Employment Answer Date Recorded Employment Unknown 08/11/2018 Purpose - Life Answer Date Recorded Purpose and direction in life Unknown Comments No Sex and Gender Information Value Date Recorded Sex Assigned at Not on file Legal Sex Female 12:01 PM EDT Gender Identity Not on file Sexual Orientation Not on file COVID-19 Exposure Response Date Recorded In the last month, have you been in contact with someone who was confirmed or suspected to have Coronavirus / COVID-19? No / Unsure 11/20/2020 10:20 PM EDT documented as of this encounter Miscellaneous Notes * Telephone Encounter - LORRAINE Mcginnis - 12/18/2020 12:14 AM EDT Patient was due for annual contraception follow up in October documented in this encounter Plan of Treatment Upcoming Encounters Date Type Department Care Team (Late st Contact Info) Description 11/24/2024 3:20 PM EDT Office Visit [facility] [address] [facility] [place] [address] Cristiane Andino APRN-CNP [address] [facility] [place] [place] [address] 01/23/2025 1:00 PM EST Office Visit [facility] [address] [facility] [address] [place] [phone] Pacheco Hernandez MD [address] [place], [place] [phone] documented as of this encounter Visit Diagnoses Diagnosis Encounter for surveillance of contraceptive pills documented in this encounter Additional Health Concerns Infection Onset Date Last Indicated Resolved Time Respiratory Rule-Out Comment:negative 02/16/2019 02/16/2019 04/05/2021 7:[address] COVID-19 Rule-Out 02/17/2024 02/17/2024 02/17/2024 6:31 PM EST Respiratory Rule-Out 04/13/2024 04/13/2024 025 3:13 AM EST Respiratory Rule-Out 08/30/2024 08/30/2024 025 7:47 PM EDT documented as of this encounter Care Teams Associate Medical Director Relationship Specialty Start Date End Date Cristiane Andino APRN-CNP [address] [facility] [place] [address] PCP - General Family Medicine 09/26/24 documented as of this encounter
--- OUTSIDE RECORDS SUMMARY | 2024-11-07 11:08 | XMS_ITS | Encounter Summary ---
Author Organization [facility] Address [id number] [address] [place] [address] Care Team Providers Care Motion And Time Study Teacher Name Role Phone Cristiane Andino SEWER AND INSPECTOR-OFFSET ASSISTANT PRESS OPERATOR Primary Care Provider Reason for Visit * Reason Comments Med Refill Encounter Details Date Type Department Care Team ([facility] Contact Info) Description 09/14/2019 Refill [facility] [address] [facility] [phone] Eulalia Mendoza, SEWER AND INSPECTOR-[facility] [address] [place], [place] [phone] Irregular menstrual bleeding Social History Tobacco Use Types Packs/Day Years Used Date Smoking Tobacco: Never Smokeless Tobacco: Never Alcohol Use Standard Drinks/Week Comments No 0 (1 standard drink = 0.6 oz pur e alcohol) Childcare Answer Date Recorded Childcare Unknown 08/11/2018 Employment Answer Date Recorded Employment Unknown 08/11/2018 Comments No Sex and Gender Information Value Date Recorded Sex Assigned at Not on file Legal Sex Female 12:01 PM EDT Gender Identity Not on file Sexual Orientation Not on file COVID-19 Exposure Response Date Recorded In the last month, have you been in contact with someone who was confirmed or suspected to have Coronavirus / COVID-19? No / Unsure 08/23/2019 11:52 PM EDT documented as of this encounter Miscellaneous Notes * Telephone Encounter - LORRAINE Mcginnis - 09/14/2019 12:18 AM EDT Patient needs appointment documented in this encounter Plan of Treatment Upcoming Encounters Date Type Department Care Team (Late st Contact Info) Description 11/24/2024 3:20 PM EDT Office Visit [facility] [address] [place] [phone] Cristiane Andino, NABIL-JOCE [address] [place] [address] 01/23/2025 1:00 PM EST Office Visit [facility] [address] [place] [address] Pacheco Hernandez MD [address] [place] [address] documented as of this encounter Visit Diagnoses Diagnosis Irregular menstrual bleeding Irregular menstrual cycle documented in this encounter Additional Health Concerns Infection Onset Date Last Indicated Resolved Time Respiratory Rule-Out Comment:negative 02/16/2019 02/16/2019 04/05/2021 7:[address] COVID-19 Rule-Out 02/17/2024 02/17/2024 02/17/2024 6:31 PM EST Respiratory Rule-Out 04/13/2024 04/13/2024 025 3:13 AM EST Respiratory Rule-Out 08/30/2024 08/30/2024 025 7:47 PM EDT documented as of this encounter Care Teams Motion And Time Study Teacher Relationship Specialty Start Date End Date Cristiane Andino, NABIL-JOCE [address] [place] [address] PCP - General Family Medicine 09/26/24 documented as of this encounter
--- OUTSIDE RECORDS SUMMARY | 2024-11-07 11:08 | XMS_ITS | Encounter Summary ---
Author Organization [facility] Address [address] [place] [address] Care Team Providers Care Plasma Center Technician Name Role Phone Unavailable Primary Care Provider Unavailabl e Encounter Details Date Type Department Care Team (Late st Contact Info) Description 07/23/2024 External Result Encounter [facility] Department Unsolicited Izzy Ortiz NP [address] [place] [address] Social History Tobacco Use Types Packs/Day Years Used Date Smoking Tobacco: Never Assessed Comments Unknown Sex and Gender Information Value Date Recorded Sex Assigned at Not on file Legal Sex Female 7:26 PM EDT Gender Identity Not on file Sexual Orientation Not on file documented as of this encounter Plan of Treatment Not on file documented as of this encounter Procedures Procedure Name Priority Date/Time Associated Diagnosis Comments XR KNEE 4+ VIEWS LEFT 07/23/2024 1:20 PM EDT documented in this encounter Results * XR knee 4+ views left (07/23/2024 1:20 PM EDT) Anatomical Region Laterality Modality Lower Extremities, Knee Left [facility] 07/23/2024 1:20 PM EDT Impressions 07/23/2024 1:23 PM EDT No acute bony injury. Impression dictated by: Narciso Roberts M.D. 07/23/2024 1:21 PM Dictation Location: [place] [address] Transcribed By: [facility] 07/23/24 1321 Dictated By: Narciso Roberts II, MD 07/23/24 1320 Signed By: <Electronically signed by Narciso Roberts II, MD in OV> 07/23/24 1321 Narrative 07/23/2024 1:23 PM EDT [facility] [place] [address] XRay Report Signed Patient: Jloene Morales MR#: [id number] 86 : 2000 Acct:[id number] Age/Sex: 23 / F ADM Date: 07/23/24 Loc: XDUCLY Room: Type: REG CLI Attending Dr: Izzy Ortiz APRN, SOAKER HELPER-C Copies to: Izzy Ortiz APRN Ordering Provider: Izzy Ortiz APRN Date of Service: 07/23/24 XR/XR knee LT 4V*: M25.562 - Pain in left knee XR knee LT 4V* 07/23/2024 1:20 PM SIGNS AND SYMPTOMS: Hyperextension injury to left knee with pain medially PROTOCOL: Frontal, lateral, and oblique radiographs of the left knee COMPARISON: None. FINDINGS: The weightbearing and patellofemoral joint spaces are preserved. No joint effusion. No soft tissue swelling. No fracture. XR/XR knee LT 4V* Procedure Note Narciso Roberts MD - 07/26/2024 [facility] Main [place] [id number] XRay Report Signed Patient: Jolene Morales RMR#: [id number] [birth year] : 2000Acct:[id number] Age/Sex: 23 / FADM Date: 07/23/24 Loc: XDUCLY Room:Type: REG CLI Attending Dr: Izzy Ortiz APRN, SOAKER HELPER-C Copies to: Izzy Ortiz APRN Ordering Provider: Izzy Ortiz APRN Date of Service: 07/23/24 XR/XR knee LT 4V*: M25.562 - Pain in left knee XR knee LT 4V* 07/23/2024 1:20 PM SIGNS AND SYMPTOMS: Hyperextension injury to left knee with pain medially PROTOCOL: Frontal, lateral, and oblique radiographs of the left knee COMPARISON: None. FINDINGS: The weightbearing and patellofemoral joint spaces are preserved. No jointeffusion. No soft tissue swelling. No fracture. XR/XR knee LT 4V* IMPRESSION: No acute bony injury. Impression dictated by: Narciso Roberts M.D. 07/23/2024 1:21 PM Dictation Location: [place] [address] Transcribed By: [facility] 07/23/24 1321 Dictated By: Narciso Roberts II, MD 07/23/24 1320 Signed By: <Electronically signed by Narciso Roberts II, MD inOV> 07/23/24 1321 Izzy Ortiz SOAKER HELPER IMG XR PROCEDURES Final Result documented in this encounter Visit Diagnoses Not on filedocumented in this encounter
--- OUTSIDE RECORDS SUMMARY | 2024-11-07 11:08 | XMS_ITS | Encounter Summary ---
Author Organization [facility] [employer] [facility] tem Address [id number] [address] [place] [address] Care Team Providers Care Records Analyst Name Role Phone Cristiane Andino Chandan FERRERTRAWL NET MAKER Primary Care Provider Reason for Referral * Consultation (Routine) - Closed Specialty Diagnoses / Procedures Referred By Pascale collins Referred To Contact Maternal and Medicine Diagnoses Carrier of spinal muscular atrophy Shakira Yap APRN-CNP [address] [place] [address] Phone: tel: fax: Maternal- Medicine at [facility] [address] [place] [address] Phone: tel: fax: Referral ID Status Reason Start Date Expiration Date V isits Requested Visits Authorized [id number] Closed Specialty Services Required 01/09/2023 01/09/2024 1 1 Encounter Details Date Type Department Care Team (Late st Contact Info) Description 01/09/2023 Orders Only [facility] Services - Women's Services [address] [place] [phone] Shakira Yap APRN-CNP [address] [facility] [address] [place] [address] Carrier of spinal muscular atrophy (Primary Dx) Social History Tobacco Use Types Packs/Day Years [...] often do you attend chur ch or adventist services? Never 09/18/2022 Do you belong to any clubs o r organizations such as jainism groups, unions, fraternal or athletic groups, or [...] Answer Date Recorded Total Score 1 09/18/2022 [facility] [place] of Occupat ional Health - Occupational Stress [...] things needed for daily living? No 09/18/2022 Haslett Depression Scale Answer Date Recorded [place]lett Depression Scale Total 9 10/21/2022 The thought of harming myself has occurred to me . Never 10/21/2022 Childcare Answer Date Recorded Do problems getting child ca re make it difficult for you to work or study? No 09/18/2022 Employment Answer Date Recorded Do you need help finding a [employer] center and/or a training program? No 09/18/2022 [...] Description 11/24/2024 3:20 PM EDT Office Visit [facility] Family Medicine [address] [place] [phone] Nnaji, Assumpta N, ROLLING MILL PLUGGER-TRAWL NET MAKER [address] [place] [address] 01/23/2025 1:00 PM EST Office Visit [facility] Cardiology [address] [facility] [address] [place] [address] Pacheco Hernandez MD [address] [place] [address] Scheduled Referrals Name Type Priority Associated Diagnoses Order Schedule Maternal- Medicine at [facility] - Genetic Counseling Outpatient Referral Routine Carrier of spinal muscular atrophy 1 Occurrences starting 01/09/2023 until 01/10/2024 documented as of this encounter Goals Goal Patient Goal Type Associated Problems Recent Progress Patient-Stated? Author home General Yes Aurelia Zafar LSW Note: Evaluation of progress towards goal: Safe dc transition from hospital to home with family support. documented as of this encounter Visit Diagnoses Diagnosis Carrier of spinal muscular atrophy- Primary documented in this encounter Additional Health Concerns Infection Onset Date Last Indicated Resolved Time COVID-19 Rule-Out 02/17/2024 02/17/2024 02/17/2024 6:31 PM EST Respiratory Rule-Out 04/13/2024 04/13/2024 025 3:13 AM EST Respiratory Rule-Out 08/30/2024 08/30/2024 025 7:47 PM EDT Assessment Noted Time PHQ-9 Depression Total Score: 1 09/19/19 23 4:08 PM EDT documented as of this encounter Care Teams Records Analyst Relationship Specialty Start Date End Date Cristiane Andino, ROLLING MILL PLUGGER-TRAWL NET MAKER [address] [place] [address] PCP - General Family Medicine 09/26/24 documented as of this encounter
--- OUTSIDE RECORDS SUMMARY | 2024-11-07 11:08 | XMS_ITS | Encounter Summary ---
Author Organization [facility] tem Address [id number] [address] [place] [address] Care Team Providers Care Client Resolution Specialist Name Role Phone Cristiane Andino Chandan DIRECTOR E LEARNING-SEWER MAINTENANCE SUPERVISOR Primary Care Provider Encounter Details Date Type Department Care Team (Late st Contact Info) Description 12/29/2022 Documentation [facility] - Labor [address] [place] [phone] Yesica Villa, DIRECTOR E [facility] [address] [facility], [address] [place] [address] Social History Tobacco Use Types Packs/Day Years [...] often do you attend chur ch or muslim services? Never 09/18/2022 Do you belong to any clubs o r organizations such as faith groups, unions, fraternal or athletic groups, or [...] Answer Date Recorded Total Score 1 09/18/2022 [facility] of Occupat ional Health - Occupational Stress [...] things needed for daily living? No 09/18/2022 Jackson Depression Scale Answer Date Recorded Jackson Depression Scale Total 9 10/21/2022 The thought of harming myself has occurred to me . Never 10/21/2022 Childcare Answer Date Recorded Do problems getting child ca re make it difficult for you to work or study? No 09/18/2022 Employment Answer Date Recorded Do you need help finding a l al career center and/or a training program? No 09/18/2022 Purpose - Life Answer Date Recorded Purpose and direction in life Unknown Comments Yes Sex and Gender Information Value Date Recorded Sex Assigned at Not on file Legal Sex Female 12:01 PM EDT Gender Identity Not on file Sexual Orientation Not on file documented as of this encounter Functional Status documented as of this encounter Plan of Treatment Upcoming Encounters Date Type Department Care Team (Late st Contact Info) Description 11/24/2024 3:20 PM EDT Office Visit [facility] [address] [facility] [address] [facility] [place] [address] Cristiane Andino, DIRECTOR E LEARNING-SEWER MAINTENANCE SUPERVISOR [address] [place] [address] 01/23/2025 1:00 PM EST Office Visit [facility] [address] [place] [address] Pacheco Hernandez MD [address] [place] [address] documented as of this encounter [...] documented as of this encounter Care Teams Client Resolution Specialist Relationship Specialty Start Date End Date Cristiane Andino, DIRECTOR E LEARNING-SEWER MAINTENANCE SUPERVISOR [address] [facility] [place] [address] PCP - General Family Medicine 09/26/24 documented as of this encounter
--- OUTSIDE RECORDS SUMMARY | 2024-11-07 11:08 | XMS_ITS | Encounter Summary ---
Author Organization [employer] tem Address [id number] [address] [place] [address] Care Team Providers Care Anatomy Teacher Name Role Phone Cristiane Andino DEPLOYMENT ENGINEER-CODE MACHINE OPERATOR Primary Care Provider Reason for Referral * Consultation (Routine) - Pending Review Specialty Diagnoses / Procedures Referred By Contethan t Referred To Contact Cardiology Diagnoses POTS (postural orthostatic tachycardia syndrome) Recurrent syncope Zelalem Elizabeth MD [address] [place] [address] Phone: tel: fax: Rod Villegas MD [address] [place] [address] Phone: tel: fax: Referral ID Status Reason Start Date Expiration Date Visits Requested Visits Authorized [id number] Pending Review Specialty Services Required 12/28/2024 1 1 Encounter Details Date Type Department Care Team (Late Contact Info) Description 12/29/2023 Orders Only [facility] [address] [place] [phone] Marisa Avila, RN POTS (postural orthostatic tachycardia syndrome) (Primary Dx); Recurrent syncope Social History Tobacco Use Types Packs/Day Years [...] often do you attend chur ch or alevism services? Never 09/18/2022 Do you belong to any clubs o r organizations such as mandaeism groups, unions, fraternal or athletic groups, or [...] care, and heating? Not hard at all 03/18/2023 PHQ-2 Answer Date Recorded Total Score 1 09/18/2022 [facility] of Occupat ional Health - Occupational Stress [...] medical appointments or from getting medications? No 03/02 In the past 12 months, has l ack of transportation kept you from meetings, work, or from getting things needed for daily living? No 03/18/2023 Carbon Depression Scale Answer Date Recorded [place] Depression Scale Total 1 06/12/2023 The thought of harming myself has occurred to me . Never 06/12/2023 Housing Instability Answer Date Recorde d Are you worried or concerned that in the next two months you may not have stable housing that you own, rent or stay in as a part of a household? No 03/18/2023 Childcare Answer Date Recorded Do problems getting child ca re make it difficult for you to work or study? No 09/18/2022 Employment Answer Date Recorded Do you need help finding a [employer] center and/or a training program? No 09/18/2022 Hunger Screening Answer Date Recorded Within the past 12 months we worried whether our food would run out before we got money to buy more. Never True 12/29/2023 Within the past 12 months th e food we bought just didn't last and we didn't have money to get more. Never True 12/29/2023 Purpose - Life Answer Date Recorded Purpose [...] Office Visit [facility] [address] [place] [address] Cristiane Andino N, DEPLOYMENT ENGINEER-CODE MACHINE OPERATOR [address] [facility] [place] [address] 01/23/2025 1:00 PM EST Office Visit [facility] [address] [facility] [address] [place] [address] Pacheco Hernandez MD [address] [place] [address] Scheduled Referrals Name Type Priority Associated Diagnoses Order Schedule Ambulatory referral to Cardiology ([facility]) Outpatient Referral Routine POTS (postural orthostatic tachycardia syndrome) Recurrent syncope 1 Occurrences starting 12/29/2023 until 12/28/2024 documented as of this encounter Goals Goal Patient Goal Type Associated Problems Recent Progress Patient-Stated? Author home General Yes Aurelia Zafar LSW Note: Evaluation of progress towards goal: Safe dc transition from hospital to home with family support. documented as of this encounter Visit Diagnoses Diagnosis POTS (postural orthostatic tachycardia syndrome)- Primary Unspecified tachycardia Recurrent syncope documented in this encounter Additional Health Concerns Infection Onset Date Last Indicated Resolved Time COVID-19 Rule-Out 02/17/2024 02/17/2024 02/17/2024 6:31 PM EST Respiratory Rule-Out 04/13/2024 04/13/2024 025 3:13 AM EST Respiratory Rule-Out 08/30/2024 08/30/2024 025 7:47 PM EDT Assessment Noted Time PHQ-9 Depression Total Score: 1 09/19/19 23 4:08 PM EDT documented as of this encounter Care Teams Anatomy Teacher Relationship Specialty Start Date End Date Cristiane Andino, DEPLOYMENT ENGINEER-CODE MACHINE OPERATOR [address] [place] [address] PCP - General Family Medicine 09/26/24 documented as of this encounter
--- OUTSIDE RECORDS SUMMARY | 2024-11-07 11:08 | XMS_ITS | Encounter Summary ---
Author Organization [facility] tem Address [id number] [address] [place] [address] Care Team Providers Care Waste Oil Pumper Name Role Phone Cristiane Andino N WASTE AND BATTING WASTE CHOPPER-ALTERNATIVE ENERGY TECHNICIAN Primary Care Provider Encounter Details Date Type Department Care Team (Late st Contact Info) Description 07/03/2024 Orders Only [facility] - Labor [address] [place] [phone] Mavis Harley, WASTE AND BATTING WASTE CHOPPER-CN [address] [place] [address] with uncertain viability, single or unspecified fetus (Primary Dx) Social History Tobacco Use Types [...] often do you attend chur ch or druze services? Never 09/18/2022 Do you belong to any clubs o r organizations such as anglican groups, unions, fraternal or athletic groups, or [...] Answer Date Recorded Total Score 1 09/18/2022 [facility] of Occupat ional Health - [...] things needed for daily living? No 03/18/2023 Wilber Depression Scale Answer Date Recorded Wilber Depression Scale Total 1 06/12/2023 The thought [...] Recorded Do you need help finding a steward health care system career center and/or a training program? No 09/18/2022 Hunger Screening Answer Date Recorded Within the past 12 months we worried whether our food would run out before we got money to buy more. Never True 06/29/2024 Within the past 12 months th e food we bought just didn't last and we didn't have money to get more. Never True 06/29/2024 Purpose - Life Answer Date Recorded Purpose [...] Office Visit [facility] [address] [facility] [place] [address] Cristiane Andino N, WASTE AND BATTING WASTE CHOPPER-ALTERNATIVE ENERGY TECHNICIAN [address] [facility], [place] [address] 01/23/2025 1:00 PM EST Office Visit [facility] [address] [facility] [address] [place] [address] Pacheco Hernandez MD [address] [place] [address] Scheduled Orders Name Type Priority Associated Diagnoses Orde r Schedule hCG, quantitative, Lab Routine with uncertain viability, single or unspecified fetus weekly for 4 Occurrences starting 07/03/2024 until 07/03/2025 documented as of this encounter Goals Goal Patient Goal Type Associated Problems Recent Progress Patient-Stated? Author home General Yes Aurelia Zafar LSW Note: Evaluation of progress towards goal: Safe dc transition from hospital to home with family support. documented as of this encounter Visit Diagnoses Diagnosis with uncertain viability, single or unspecified fetus- Primary documented in this encounter Additional Health Concerns Infection Onset Date Last Indicated Resolved Time Respiratory Rule-Out 08/30/2024 08/30/2024 025 7:47 PM EDT Assessment Noted Time PHQ-9 Depression Total Score: 1 09/19/19 23 4:08 PM EDT documented as of this encounter Care Teams Waste Oil Pumper Relationship Specialty Start Date End Date Cristiane Andino, WASTE AND BATTING WASTE CHOPPER-ALTERNATIVE ENERGY TECHNICIAN [address] [place] [address] PCP - General Family Medicine 09/26/24 documented as of this encounter
--- OUTSIDE RECORDS SUMMARY | 2024-11-07 11:08 | XMS_ITS | Encounter Summary ---
Author Organization [facility] Address [id number] [address] [place] [address] Care Team Providers Care Dermatology Teacher Name Role Phone Cristiane Andino STATISTICAL CLERK ADVERTISING-CEMETERY WARDEN Primary Care Provider Reason for Visit * Reason Comments Med Change Request Encounter Details Date Type Department Care Team (Late st Contact Info) Description 09/22/2024 Refill [facility] [address] [facility] [address] [facility] [address] [place] [address] Amadou Abad MD [address] [place] [address] Social History Tobacco Use Types Packs/Day Years Used Date Smoking Tobacco: Never Smokeless Tobacco: Never Alcohol Use Standard Drinks/Week Comments Yes 0 (1 standard drink = 0.6 oz pur e alcohol) [facility] Utilities Answer Date Recorded In the past 12 months has [employer] electric, gas, oil, or water company threatened to shut off services in your [...] week 08/29/2024 How often do you attend [facility] or islam services? Never 08/29/2024 Do you belong to any clubs o r organizations such as tenriism groups, unions, fraternal or athletic groups, or [...] 09/20/2024 PHQ-2 Answer Date Recorded Total Score 5 09/22/2024 [facility] of Occupat ional Health - Occupational [...] things needed for daily living? No 09/20/2024 [place] Depression Scale Answer Date Recorded [place] Depression Scale Total 1 06/12/2023 The thought [...] Recorded Do you need help finding a [facility] career center and/or a training program? No 08/29/2024 Hunger Screening Answer Date Recorded Within the past 12 months we worried whether our food would run out before we got money to buy more. Never True 09/22/2024 Within the past 12 months th e food we bought just didn't last and we didn't have money to get more. Never True 09/22/2024 Purpose - Life Answer Date Recorded I have a purpose and direction in my life. Agree 08/29/2024 Comments No Sex and Gender Information Value Date Recorded Sex Assigned at Not on file Legal Sex Female 12:01 PM EDT Gender Identity Not on file Sexual Orientation Not on file documented as of this encounter Functional Status * Over the last 2 weeks, how often have you been bothered by any of the following problems? Question Answer Date of Assessment Author Feeling nervous, anxious, or on edge 3 09/22/2024 3:19 PM Adelina Nino CMA Not being able to stop or control worrying 1 09/22/2024 3:19 PM Adelina Nino CMA Worrying too much about different things 1 09/22/2024 3:19 PM Adelina Nino CMA Trouble relaxing 1 09/22/2024 3:19 PM Argelia Ferreira CMA Being so restless that it is hard to sit still 1 09/22/2024 3:19 PM Aedlina Nino CMA Becoming easily annoyed or irritable 0 09/22/2024 3:19 PM Adelina Nino CMA Feeling afraid as if somethi ng awful might happen 0 09/22/2024 3:19 PM Adelina Nino CMA MARTY-7 Total Score 7 09/22/2024 3:19 PM Argelia Nino CMA documented as of this encounter Plan of Treatment Upcoming Encounters Date Type Department Care Team (Late st Contact Info) Description 11/24/2024 3:20 PM EDT Office Visit [facility] [address] [facility] [place] [address] Cristiane Andino, STATISTICAL CLERK ADVERTISING-CEMETERY WARDEN [address] [place] [address] [facility] [place] [address] 01/23/2025 1:00 PM EST Office Visit [facility] [address] [facility] [address] [place] [address] Pacheco Hernandez MD [address] [place] [address] documented as of this encounter Goals Goal Patient Goal Type Associated Problems Recent Progress Patient-Stated? Author home General Yes Aurelia Zafar LSW Note: Evaluation of progress towards goal: Safe dc transition from hospital to home with family support. documented as of this encounter Visit Diagnoses Not on filedocumented in this encounter Additional Health Concerns Assessment Noted Time PHQ-9 Depression Total Score: 5 09/23/19 3:18 PM EDT A Body Mass Index follow-up plan has been documented for the patient 09/22/2024 4:20 PM EDT documented as of this encounter Care Teams Dermatology Teacher Relationship Specialty Start Date End Date Cristiane Andino, STATISTICAL CLERK ADVERTISING-CEMETERY WARDEN [address] [facility] [place] [address] PCP - General Family Medicine 09/26/24 documented as of this encounter
--- OUTSIDE RECORDS SUMMARY | 2024-11-07 11:08 | XMS_ITS | Encounter Summary ---
Author Organization [facility] Address [facility]-[id number] [address] [place] [address] Care Team Providers Care Passenger Solicitor Name Role Phone Cristiane Andino TELEPHONE ANSWERER-AIR TURNING MACHINE FEEDER Primary Care Provider Reason for Visit * Reason Comments Med Refill Encounter Details Date Type Department Care Team (Late st Contact Info) Description 11/21/2020 Refill [facility] [address] [place] [phone] Eulalia Mendoza, TELEPHONE ANSWERER-AIR TURNING MACHINE FEEDER [address] [place] [address] Encounter for surveillance of contraceptive pills Social [...] * Telephone Encounter - LORRAINE Mcginnis - 11/21/2020 12:15 AM EDT Patient due for annual contraception visit 11/29/20. One refill sent to last patient until then. documented in this encounter Plan of Treatment Upcoming Encounters Date Type Department Care Team (Late st Contact Info) Description 11/24/2024 3:20 PM EDT Office Visit [facility] [address] [facility] [place] [phone] Cristiane Andino, NABIL-JOCE [address] [place] [phone] 01/23/2025 1:00 PM EST Office Visit [facility] [address] [place] [phone] Pacheco Hernandez MD [address] [place] [address] documented as of this encounter Visit Diagnoses [...] documented as of this encounter Care Teams Passenger Solicitor Relationship Specialty Start Date End Date Cristiane Andino APRN-AIR TURNING MACHINE FEEDER [address] [facility] [place] [phone] PCP - General Family Medicine 09/26/24 documented as of this encounter
--- OUTSIDE RECORDS SUMMARY | 2024-11-07 11:08 | XMS_ITS | Encounter Summary ---
Author Organization [facility] [employer] Sys [facility] Address [facility]-[id number] [address] [place] [address] Care Team Providers Care Heading Repairer Name Role Phone Cristiane Andino INFORMATION RECEPTIONIST-STRAIGHT EDGER Primary Care Provider Reason for Visit * Reason Comments Med Refill Encounter Details Date Type Department Care Team (Late st Contact Info) Description 12/26/2020 Refill [facility] [address] [place] [phone] Eulalia Mendoza APRN-JOCE [facility] [place] [address] Encounter for surveillance of contraceptive pills Social [...] on file documented as of this encounter Miscellaneous Notes * Telephone Encounter - LORRAINE Mcginnis - 12/26/2020 6:10 PM EDT Patient needs an appointment. She was due for annual contraception follow up 11/29/20. No refill sent. Please call and get her scheduled. Thank you. documented in this encounter Plan of Treatment Upcoming Encounters Date Type Department Care Team (Late st Contact Info) Description 11/24/2024 3:20 PM EDT Office Visit [facility] [address] [facility] [place] [phone] Cristiane Andino APRN-JOCE [address] [facility], [place] [address] 01/23/2025 1:00 PM EST Office Visit [facility] [address] [facility] 1 [place] [address] Pacheco Hernandez MD [address] [place] [address] documented as of this encounter Visit Diagnoses [...] documented as of this encounter Care Teams Heading Repairer Relationship Specialty Start Date End Date Cristiane Andino, NABIL-STRAIGHT EDGER [address] [facility], [place] [address] PCP - General Family Medicine 09/26/24 documented as of this encounter
--- OUTSIDE RECORDS SUMMARY | 2024-11-07 11:08 | XMS_ITS | Encounter Summary ---
Author Organization [facility] Sys tem Address [facility]-[id number] [address] [place] [address] Care Team Providers Care Hospital Television Rental Clerk Name Role Phone Cristiane Andino MISDRAW HAND-LIQUIFIED NATURAL GAS TECHNICIAN Primary Care Provider Encounter Details Date Type Department Care Team (Late st Contact Info) Description 10/22/2022 Telephone [facility] [address] [place] [phone] Prasad Hall MD [address] [place], [place] [phone] Social History Tobacco Use Types Packs/Day Years [...] often do you attend chur ch or yazidism services? Never 09/18/2022 Do you belong to any clubs o r organizations such as latter day groups, unions, fraternal or athletic groups, or [...] Answer Date Recorded Total Score 1 09/18/2022 [facility] of Occupat ional Health - Occupational Stress [...] things needed for daily living? No 09/18/2022 [place] Depression Scale Answer Date Recorded [place] Depression Scale Total 9 10/21/2022 The thought of harming myself has occurred to me . Never 10/21/2022 Childcare Answer Date Recorded Do problems getting child ca re make it difficult for you to work or study? No 09/18/2022 Employment Answer Date Recorded Do you need help finding a [facility] and/or a training program? No 09/18/2022 Purpose - Life Answer Date Recorded Purpose and direction in life Unknown Comments Yes Sex and Gender Information Value Date Recorded Sex Assigned at Not on file Legal Sex Female 12:01 PM EDT Gender Identity Not on file Sexual Orientation Not on file documented as of this encounter Miscellaneous Notes * Telephone Encounter - Chyna Camp - 10/22/2022 8:27 AM EDT LMOM for the patient to call and schedule their new pt appointment with [facility]. documented in this encounter Plan of Treatment Upcoming Encounters Date Type Department Care Team (Late st Contact Info) Description 11/24/2024 3:20 PM EDT Office Visit [facility] [address] [place] [address] Cristiane Andino, MISDRAW HAND-LIQUIFIED NATURAL GAS TECHNICIAN [address] [facility], [facility] [place] [address] 01/23/2025 1:00 PM EST Office Visit [facility] [address] [facility] [address] [place] [address] Pacheco Hernandez MD [address] [place], [place] [phone] documented as of this encounter Goals Goal [...] Time PHQ-9 Depression Total Score: 1 09/19/19 4:08 PM EDT documented as of this encounter Care Teams Hospital Television Rental Clerk Relationship Specialty Start Date End Date Cristiane Andino, MISDRAW HAND-LIQUIFIED NATURAL GAS TECHNICIAN [address] [facility], [facility] [place] [address] PCP - General Family Medicine 09/26/24 documented as of this encounter
--- OUTSIDE RECORDS SUMMARY | 2024-11-07 11:08 | XMS_ITS | Encounter Summary ---
Author Organization [facility] [employer] Sys [employer] Address [facility] [id number] [address] [place] [address] Care Team Providers Care Managing Consultant Name Role Phone Cristiane Andino BOOKKEEPING CLERKS SUPERVISOR-ELECTRICAL EXPERIMENTAL MECHANIC Primary Care Provider Reason for Referral * Cardiology (Routine) - Closed Specialty Diagnoses / Procedures Referred By Pascale t Referred To Contact Diagnoses Heart palpitations Shortness of breath Dizziness Procedures Holter monitor 24-48 hour Rigoberto Almanzar MD [address] [place] [address] Phone: tel: fax: Referral ID Status Reason Start Date Expiration Date Visits Re quested Visits Authorized [id number] Closed 11/14/2022 11/14/2023 1 1 Encounter Details Date Type Department Care Team (Late st Contact Info) Description 11/14/2022 Orders Only [facility] [address] [place] [phone] Marisa Avila crop and soil scientist palpitations (Primary Dx); Shortness of breath; Dizziness Social History Tobacco Use Types Packs/Day Years [...] often do you attend chur ch or yazidi services? Never 09/18/2022 Do you belong to any clubs o r organizations such as hinduism groups, unions, fraternal or athletic groups, or [...] Answer Date Recorded Total Score 1 09/18/2022 [facility] of Occupat ional Health - Occupational Stress [...] things needed for daily living? No 09/18/2022 [place] Depression Scale Answer Date Recorded [place] Depression Scale Total 9 10/21/2022 The thought of harming myself has occurred to me . Never 10/21/2022 Childcare Answer Date Recorded Do problems getting child ca re make it difficult for you to work or study? No 09/18/2022 Employment Answer Date Recorded Do you need help finding a [facility] career center and/or a training program? [...] Office Visit [facility] [address] [facility] [place] [place] [address] Cristiane Andino N, BOOKKEEPING CLERKS SUPERVISOR-ELECTRICAL EXPERIMENTAL MECHANIC [address] [facility], [facility] [address] 01/23/2025 1:00 PM EST Office Visit [facility] [address] [facility] [address] [place] [phone] Pacheco Hernandez MD [address] [place] [address] documented as of this encounter Goals Goal Patient Goal Type Associated Problems Recent Progress Patient-Stated? Author home General Yes Aurelia Zafar LSW Note: Evaluation of progress towards goal: Safe dc transition from hospital to home with family support. documented as of this encounter Results * HOLTER MONITOR HANDICAPPER HARNESS RACING/UP TO 48 HOUR (11/28/2022 8:49 AM EDT) Anatomical Region Laterality Modality Chest N/A Other Narrative 12/03/2022 4:54 PM EDT Indication: Palpitations, shortness of breath, dizziness Findings: 48 hour Holter monitor dated 11/28/2022. Predominant rhythm was normal sinus, average heart rate 100 beats per minute, range 79 to 163. Very low burden of supraventricular ectopy totaling less than 0.01%. No ventricular ectopy. No evidence of atrial fibrillation or flutter, significant pauses, or heart block. Heart rate histogram demonstrates sinus tachycardia during the awake hours. One patient triggered episode without reported symptoms, underlying rhythm was sinus tachycardia at 111 beats per minute. Interpretation: Baseline sinus tachycardia with some decrease in rate during the sleeping hours suggestive of inappropriate sinus tachycardia versus POTS. 1 patient triggered episode correlated sinus tachycardia 111 beats per minute, unable to correlate symptoms as patient not report any. us Rigoberto Almanzar MD [facility] STEVEN [facility] Final Result documented in this encounter Visit Diagnoses Diagnosis Heart palpitations- Primary Palpitations Shortness of breath Dizziness Dizziness and giddiness Heart palpitations Palpitations Shortness of breath Dizziness Dizziness and giddiness documented in this encounter Additional Health Concerns Infection Onset Date Last Indicated Resolved Time COVID-19 Rule-Out 02/17/2024 02/17/2024 02/17/2024 6:31 PM EST Respiratory Rule-Out 04/13/2024 04/13/2024 025 3:13 AM EST Respiratory Rule-Out 08/30/2024 08/30/2024 025 7:47 PM EDT Assessment Noted Time PHQ-9 Depression Total Score: 1 09/19/19 23 4:08 PM EDT documented as of this encounter Care Teams Managing Consultant Relationship Specialty Start Date End Date Cristiane Andino, BOOKKEEPING CLERKS SUPERVISOR-ELECTRICAL EXPERIMENTAL MECHANIC [address] [facility] [place] [address] PCP - General Family Medicine 09/26/24 documented as of this encounter
--- OUTSIDE RECORDS SUMMARY | 2024-11-07 11:09 | XMS_ITS | Encounter Summary ---
Author Organization [facility] Address [facility] [place] [id number] [address] [place] [address] Care Team Providers Care Horse Trader Name Role Phone Cristiane Andino WEDDING COORDINATOR-STEEL WORKER Primary Care Provider Reason for Referral * Cardiology (Routine) - Closed Specialty Diagnoses / Procedures Referred By Pascale collins Referred To Contact Diagnoses Heart palpitations Recurrent syncope Inappropriate sinus tachycardia Procedures Event Monitor (In Office) Zelalem Elizabeth MD [address] [place] [address] Phone: tel: fax: Referral ID Status Reason Start Date Expiration Date Visits Re quested Visits Authorized [id number] Closed 08/28/2023 08/27/2024 1 1 Encounter Details Date Type Department Care Team (Late st Contact Info) Description 08/28/2023 Orders Only [facility] [address] [place] [phone] Marisa Avila RN Recurrent syncope (Primary Dx); Heart palpitations; Inappropriate sinus tachycardia (CMS-HCC) Social History Tobacco Use Types Packs/Day Years [...] Answer Date Recorded Total Score 1 09/18/2022 [facility] of Occupat ional Health - [...] things needed for daily living? No 03/18/2023 [place] Depression Scale Answer Date Recorded [place] Depression Scale Total 1 06/12/2023 The thought [...] Recorded Do you need help finding a [facility] career center and/or a training program? No 09/18/2022 Hunger Screening Answer Date Recorded Within the past 12 months we worried whether our food would run out before we got money to buy more. Never True 08/28/2023 Within the past 12 months th e food we bought just didn't last and we didn't have money to get more. Never True 08/28/2023 Purpose - Life Answer Date Recorded Purpose [...] Description 11/24/2024 3:20 PM EDT Office Visit [facility] [address] [place] [address] Cristiane Andino N, WEDDING COORDINATOR-STEEL WORKER [address] [facility] [place] [phone] 01/23/2025 1:00 PM EST Office Visit [facility] [address] [facility] 1 [place] [address] Pacheco Hernandez MD [address] [place] [address] documented as of this encounter Goals Goal Patient Goal Type Associated Problems Recent Progress Patient-Stated? Author home General Yes Aurelia Zafar LSW Note: Evaluation of progress towards goal: Safe dc transition from hospital to home with family support. documented as of this encounter Results * Event Monitor (In Office) (08/28/2023 1:44 PM EDT) Anatomical Region Laterality Modality Other Narrative 09/16/2023 9:51 AM EDT 1. This is a wireless event monitor done between 09/01/2023 and 09/14/2023. 2. The baseline and prevailing rhythm was sinus tachycardia. 3. No arrhythmias were noted. 4. The patient had numerous complaints of dizziness and chest pain and lightheadedness as well as shortness of breath while mostly in sinus tachycardia. us Zelalem Elizabeth MD [facility] ORDERABLES Final Result documented in this encounter Visit Diagnoses Diagnosis Recurrent syncope- Primary Heart palpitations Palpitations Inappropriate sinus tachycardia Heart palpitations Palpitations Recurrent syncope Inappropriate sinus tachycardia documented in this encounter Additional Health Concerns Infection Onset Date Last Indicated Resolved Time COVID-19 Rule-Out 02/17/2024 02/17/2024 02/17/2024 6:31 PM EST Respiratory Rule-Out 04/13/2024 04/13/2024 025 3:13 AM EST Respiratory Rule-Out 08/30/2024 08/30/2024 025 7:47 PM EDT Assessment Noted Time PHQ-9 Depression Total Score: 1 09/19/19 23 4:08 PM EDT documented as of this encounter Care Teams Horse Trader Relationship Specialty Start Date End Date Cristiane Andino, WEDDING COORDINATOR-STEEL WORKER [address] [facility] [place] [phone] PCP - General Family Medicine 09/26/24 documented as of this encounter
--- OUTSIDE RECORDS SUMMARY | 2024-11-07 11:09 | XMS_ITS | Encounter Summary ---
Author Organization [facility] [employer] [facility] s [employer] Address [facility]-[id number] [address] [place] [address] Care Team Providers Care Forensic Scientist Name Role Phone Cristiane Andino UNDERCUTTER-BLAST FURNACE KEEPER Primary Care Provider Reason for Visit * Reason Comments Med Refill Encounter Details Date Type Department Care Team (Late Contact Info) Description 10/24/2024 [facility] [address] [place] [phone] Mireya Jean-Baptiste V, UNDERCUTTER-CN [address] [facility] [place] [address] Counseling for initiation of control method Social History Tobacco Use Types Packs/Day Years Used Date Smoking Tobacco: Never Smokeless Tobacco: Never Alcohol Use Standard Drinks/Week Comments Yes 0 (1 standard drink = 0.6 oz pur e alcohol) [facility] Utilities Answer Date Recorded In the past 12 months has [employer], gas, oil, or water company threatened [...] often do you attend chur ch or congregation services? Never 08/29/2024 Do you belong to any clubs o r organizations such as rastafari groups, unions, fraternal or athletic groups, or [...] Answer Date Recorded Total Score 0 10/24/2024 [facility] of Occupat ional Health - Occupational Stress [...] things needed for daily living? No 09/20/2024 [place] Depression Scale Answer Date Recorded [place] Depression Scale Total 1 06/12/2023 The thought [...] Recorded Do you need help finding a [facility] career center and/or a training program? No [...] or on edge 3 10/24/2024 3:11 PM Adelina Nino CMA Not being able to stop or control worrying 3 10/24/2024 3:11 PM Adelina Nino CMA Worrying too much about different things 3 10/24/2024 3:11 PM Adelina Nino CMA Trouble relaxing 3 10/24/2024 3:11 PM Argelia Ferreira CMA Being so restless that it is hard to sit still 3 10/24/2024 3:11 PM Adelina Nino CMA Becoming easily annoyed or irritable 0 10/24/2024 3:11 PM Adelina Nino CMA Feeling afraid as if somethi ng awful might happen 3 10/24/2024 3:11 PM Adelina Nino CMA MARTY-7 Total Score 18 10/24/2024 3:11 PM Argelia Nino CMA documented as of this encounter Plan of Treatment Upcoming Encounters Date Type Department Care Team (Late st Contact Info) Description 11/24/2024 3:20 PM EDT Office Visit [facility] [address] [facility] [address] [facility] [place] [address] Cristiane Andino, UNDERCUTTER-BLAST FURNACE KEEPER [address] [facility], [place] [address] 01/23/2025 1:00 PM EST Office Visit [facility] [address] [facility] [address] [place] [address] Pacheco Hernandez MD [address] [place] [address] documented as of this encounter Goals Goal Patient Goal Type Associated Problems Recent Progress Patient-Stated? Author home General Yes Aurelia Zafar LSW Note: Evaluation of progress towards goal: Safe dc transition from hospital to home with family support. documented as of this encounter Visit Diagnoses Diagnosis Counseling for initiation of control method documented in this encounter Additional Health Concerns Assessment Noted Time PHQ-9 Depression Total Score: 0 10/25/19 3:10 PM EDT A Body Mass Index follow-up plan has been documented for the patient 10/24/2024 4:00 PM EDT documented as of this encounter Care Teams Forensic Scientist Relationship Specialty Start Date End Date Cristiane Andino, UNDERCUTTER-BLAST FURNACE KEEPER [address] [facility] [place] [address] PCP - General Family Medicine 09/26/24 documented as of this encounter
--- OUTSIDE RECORDS SUMMARY | 2024-11-07 11:09 | XMS_ITS | Clinical Summary ---
Author Organization [facility] tem Address [id number] [address] [place] [address] Care Team Providers Care Pot Fisher Name Role Phone Cristiane Andino ROUSTABOUT-BALLING HEAD TENDER Primary Care Provider Allergies Active Allergy Reactions Criticality Noted Date Comments Metformin Diarrhea,Nausea 10/24/2024 Morphine GI Disturbance 07/28/2024 Medications ferrous sulfate 325 (65 FE) MG tabletIndicatio ns:Iron deficiency anemia, unspecified iron deficiency anemia type Take 1 tablet (325 mg total) by mouth in the morning. 30 tablet 3 09/23/19 25 Active ascorbic acid (VITAMIN C) 500 mg tabletIndicatio ns:Iron deficiency anemia, unspecified iron deficiency anemia type Take 1 tablet (500 mg total) by mouth in the morning. 90 tablet 1 09/23/19 25 Active metoprolol tartrate (LOPRESSOR) 25 mg tabletIndicatio ns:POTS (postural orthostatic tachycardia syndrome) Take 0.5 tablets (12.5 mg total) by mouth in the morning and 0.5 tablets (12.5 mg total) before bedtime. Do all this for 90 days. 30 tablet 2 10/13/19 25 025 Active fludrocortisone (FLORINEF) 0.1 mg tabletIndicatio ns:POTS (postural orthostatic tachycardia syndrome),Synco pe, unspecified syncope type TAKE 1 TABLET BY MOUTH IN THE MORNING AND 1 TABLET BEFORE BEDTIME 180 tablet 1 10/17/19 25 Active midodrine (PROAMATINE) 5 mg tabletIndicatio ns:POTS (postural orthostatic tachycardia syndrome),Synco pe, unspecified syncope type TAKE 1 TABLET BY MOUTH THREE TIMES A DAY 270 tablet 1 10/19/19 25 Active sertraline (ZOLOFT) 25 mg tabletIndicatio ns:MARTY (generalized anxiety disorder) Take 1 tablet (25 mg total) by mouth in the morning. 30 tablet 2 10/25/19 25 Active semaglutide, weight loss, (WEGOVY) 0.25 mg/0.5 mL pen injectorIndicat ions:Prediabete s,Insulin resistance,Card iovascular risk factor,Metaboli c syndrome,Family history of heart disease,Family history of diabetes mellitus Inject 0.5 mL (0.25 mg total) under the skin every 7 days. 2 mL 2 10/25/19 25 Active hydrOXYzine (ATARAX) 10 mg tabletIndicatio ns:MARTY (generalized anxiety disorder) Take 1 tablet (10 mg total) by mouth 3 (three) times a day as needed for itching. 30 tablet 10/25/19 25 Active ivabradine (CORLANOR) 5 mg tablet tabletIndicatio ns:POTS (postural orthostatic tachycardia syndrome) Take 1 tablet (5 mg total) by mouth in the morning and 1 tablet (5 mg total) before bedtime. 90 tablet 3 12/29/19 24 025 Discontinued(Di scontinued by another clinician) fludrocortisone (FLORINEF) 0.1 mg tabletIndicatio ns:POTS (postural orthostatic tachycardia syndrome),Synco pe, unspecified syncope type Take 1 tablet (0.1 mg total) by mouth in the morning and 1 tablet (0.1 mg total) before bedtime. Do all this for 90 days. 60 tablet 2 09/23/19 25 025 Discontinued metoprolol tartrate (LOPRESSOR) 25 mg tabletIndicatio ns:POTS (postural orthostatic tachycardia syndrome) Take 0.5 tablets (12.5 mg total) by mouth in the morning and 0.5 tablets (12.5 mg total) before bedtime. Do all this for 90 days. 30 tablet 2 09/23/19 25 025 Discontinued(Di scontinued by another clinician) midodrine (PROAMATINE) 5 mg tabletIndicatio ns:POTS (postural orthostatic tachycardia syndrome),Synco pe, unspecified syncope type Take 1 tablet (5 mg total) by mouth 3 (three) times a day. 90 tablet 09/23/19 25 025 Discontinued metFORMIN XR (GLUCOPHAGE XR) 500 mg 24 hr tabletIndicatio ns:Insulin resistance Take 1 tablet (500 mg total) by mouth daily with breakfast. 30 tablet 11 09/27/19 025 Discontinued(Di scontinued by another clinician) Active Problems Problem Noted Date Diagnosed Date Anxiety 09/22/2024 Prediabetes 08/31/2024 Orthostatic hypotension 08/30/2024 Class 3 severe obesity due t o excess calories with body mass index (BMI) of 40.0 to 44.9 in adult 08/30/2024 Syncope, unspecified syncope type 08/29/2024 IUD (intrauterine device) in place 07/19/2024 Overview (07/19/2024): 07/19/24: Mirena IUD [id number] POTS (postural orthostatic tachycardia syndrome) 06/29/2024 Overview (06/29/2024): Has cardiology appt 06/2024 Dog bite 06/14/2024 Carrier of spinal muscular atrophy 01/09/2023 Overview (06/29/2024): [place] testing shows low risk for fetus to have disease. Genetic counseling referral placed. 06/29/24 pt desires to have FOB tested this - plans to have done in office when she does her genetic testing Inappropriate sinus tachycardia 12/25/2022 Migraines 12/22/2022 Shortness of breath 11/14/2022 Heart palpitations 10/21/2022 Overview (11/19/2022): Consult to cardiology placed 10/21/2022 Per cardiology 11/14/22: She has structurally normal heart and benign resting ECG. I have checked thyroid function test is I do not see that those have been done. I have scheduled her for Holter monitor to assess her average heart rate. At present I would try and avoid medications to slow her down. We discussed maintenance of hydration and avoidance of situations where she might hurt herself. If Holter monitor does not show significant arrhythmias it may well be appropriate to consider 2 week event monitor to make sure she is not having episodes of SVT. We will see her back after testing to see how she is doing Family history of heart disease 10/21/2022 Recurrent syncope 09/18/2022 S/P tonsillectomy 01/02/2021 Class 1 obesity due to excess calories in adult 04/03/2018 Depression 03/18/2018 Resolved Problems Problem Noted Date Diagnosed Date Resolved Date (normal spontaneous vaginal delivery) 04/03/2023 05/08/2023 Lactating mother 04/03/2023 06/29/2024 Polyhydramnios affecting pre gnancy in third trimester 03/31/2023 05/08/2023 Polyhydramnios in third trimester 03/25/2023 03/25/2023 Polyhydramnios in third trimester 03/25/2023 05/08/2023 Overview (03/25/2023): 03/24/23: Amniotic fluid assessment (DVP) is 10.9 cm, mild polyhydramnios. NST twice a week & DVP weekly. Delivery between 39-40 weeks. , supervision of first 03/18/2023 05/08/2023 Elevated glucose tolerance test 01/06/2023 06/12/2023 Overview (01/09/2023): 01/08/23 passed 3 hr GTT Leakage of amniotic fluid 12/29/2022 Overview (01/27/2023): Pt was hospitalized for inconclusive ROM status; later discharged for negative ROM Uterine size date discrepanc y , second trimester 12/17/2022 03/25/2023 Low weight gain during , antepartum 05/08/2023 Overview (01/06/2023): 01/06/23: has gained 2 lb since last visit 12/17 care in second trimester 09/18/2022 06/12/2023 Overview (10/20/2022): TORI: 04/07/2023 based on 8w2d ultrasound inconsistent with LMP. Anemia during in third trimester 08/14/2022 10/24/2024 Overview (01/06/2023): 01/06/23: iron ordered Primiparity 08/14/2022 05/08/2023 Obesity affecting 08/14/2022 05/08/2023 Nausea/vomiting in 08/14/2022 03/25/2023 Encounters Date Type Department Care Team Description 11/07/2024 9:54 AM EDT - 11/07/2024 11:06 AM EDT Emergency [facility] Emergency [address] [place] [phone] Discharge Disposition: Left Without Treatment 10/24/2024 3:20 PM EDT Office Visit [facility] [address] [place] [address] Cristiane Andino, NABIL-BALLING HEAD TENDER MARTY (generalized anxiety disorder) (Primary Dx); Prediabetes; Insulin resistance; Cardiovascular risk factor; POTS (postural orthostatic tachycardia syndrome); Metabolic syndrome; Family history of heart disease; Syncope, unspecified syncope type; Family history of diabetes mellitus 10/24/2024 Refill [facility] [address] [place] [phone] Mireya Jean-Baptiste V, ROUSTABOUT-SHERIF Counseling for initiation of control method 10/24/2024 Travel 10/18/2024 Refill [facility] [address] [place] [address] Cristiane Andino APRN-JOCE POTS (postural orthostatic tachycardia syndrome); Syncope, unspecified syncope type 10/14/2024 Refill [facility] [address] [place] [address] Nnaji, Assumpta N, ROUSTABOUT-BALLING HEAD TENDER POTS (postural orthostatic tachycardia syndrome); Syncope, unspecified syncope type 10/12/2024 2:30 PM EDT Office Visit [facility] [address] [facility] [address] [place] [phone] Olga Lidia Menon MD POTS (postural orthostatic tachycardia syndrome) 10/12/2024 Travel 10/10/2024 Orders Only [facility] [address] [place] [address] [place] [phone] Nnaji, Assumpta N, ROUSTABOUT-BALLING HEAD TENDER Insulin resistance 10/10/2024 Telephone [facility] [address] [facility] [place] [place] [address] Nnaji, Assumpta N, ROUSTABOUT-BALLING HEAD TENDER 09/26/2024 Results Follow-Up [facility] [address] [place] [phone] Argelia Francois [facility] Insulin, Lipid panel 09/26/2024 Orders Only [facility] [address] [facility] [place] [address] Nnalili, Assumpta N, ROUSTABOUT-BALLING HEAD TENDER Insulin resistance (Primary Dx) 09/26/2024 Travel 09/22/2024 3:20 PM EDT Office Visit [facility] [address] [place] [address] [place] [address] Nnaji, Assumpta N, ROUSTABOUT-BALLING HEAD TENDER POTS (postural orthostatic tachycardia syndrome) (Primary Dx); Syncope, unspecified syncope type; Prediabetes; Iron deficiency anemia, unspecified iron deficiency anemia type; PCOS (polycystic ovarian syndrome); Encounter for lipid screening for cardiovascular disease 09/22/2024 Refill [facility] [address] [address] [place] [phone] Amadou Abad MD 09/22/2024 Refill [facility] - Family Medicine [address] [place] [address] Estiven Mendoza, ROUSTABOUT-BALLING HEAD TENDER 09/20/2024 Travel 08/29/2024 10:20 AM EDT - 08/31/2024 1:40 PM EDT Hospital Encounter [facility] [address] [place] [phone] Nora Chan MD Muhammad, Ruqiyya T, MD Syncope, unspecified syncope type (Primary Dx); POTS (postural orthostatic tachycardia syndrome) Discharge Disposition: Home 08/29/2024 Travel from Last 3 Months Immunizations Immunization Administration Dates Next Due COVID-19, mRNA, LNP-S, PF, 3 0mcg/0.3mL Dose 10/31/2020 DTaP 11/26/2007, 6,05/22/2004,09/06,04/25/2003 DTaP / Hep B / IPV 05/22/2004,09/07/2003, 004 Hep A, 2 Dose 04/30/2020,01/20/2017 Hepatitis B 05/22/2004, 4,04/25/2003,12/01 HiB 12/18/2005, 5,09/07/2003,04/25 Hib (PRP-T) 12/18/2005, 5,09/07/2003,04/25 IPV 11/26/2007, 5,09/07/2003,04/25 MMR 11/26/2007,12/18/2005 MMRV 12/18/2005 Meningococcal B, Omv 04/30/2020,03/28/2020 Meningococcal Conjugate 03/28/2020 Pneumococcal Conjugate 05/22/2004,09/07/2003, Pneumococcal Conjugate 13-Valent 05/22/2004,070 10/2003,04/25/2003 Rabies - Im Fibroblast Culture 06/14/2024() Rabies Immune Globulin 06/14/2024() Tdap 01/06/2023,11/01/2014 Varicella 11/01/2014,12/18/2005 Family History Medical History Relation Name Comments No Known Problems Brother Mental illness Father Other Father breathing probl ems since COVID Dementia Maternal Grandfather Diabetes Maternal Grandfather Breast cancer Maternal Grandmother after age 50 Diabetes Maternal Grandmother Heart disease Maternal Grandmother age 44 Mental illness Maternal Grandmother Diabetes Maternal Uncle Asthma Mother Mental illness Mother depression, a nxiety Irritable bowel syndrome Paternal Grandmother Depression Sister Blood Clots Neg Hx Clotting disorder Neg Hx Colon cancer Neg Hx Ovarian cancer Neg Hx Pancreatic cancer Neg Hx Uterine cancer Neg Hx Relation Name Status Comments Brother Father Alive Maternal Grandfather Alive Maternal Grandmother Maternal Uncle Alive Mother Alive Paternal Grandfather Alive Paternal Grandmother Alive Sister Social History Tobacco Use Types Packs/Day Years Used Date Smoking Tobacco: Never Smokeless Tobacco: Never Tobacco Cessation:Counseling Given: Not Answered Alcohol Use Standard Drinks/Week Comments Yes 0 (1 standard drink = 0.6 oz pur e alcohol) [facility] Utilities Answer Date Recorded In the past 12 months has e electric, gas, oil, or water company threatened [...] often do you attend chur ch or mandaen services? Never 08/29/2024 Do you belong to any clubs o r organizations such as amish groups, unions, fraternal or athletic groups, or [...] Answer Date Recorded Total Score 0 10/24/2024 [facility] - Occupational [...] things needed for daily living? No 09/20/2024 [place] Depression Scale Answer Date Recorded [place] Depression Scale Total 1 06/12/2023 The thought [...] Recorded Do you need help finding a [facility] career center and/or a training [...] F) 10/24/2024 3:13 PM EDT Respiratory Rate 17 08/31/2024 12:4 4 PM EDT Oxygen Saturation 98% 10/24/2024 3:13 PM EDT Inhaled Oxygen Concentration - - Weight 112.2 kg (247 lb 6.4 oz) 10/24/2024 3:13 PM EDT Height 162.6 cm (5' 4.02 ) 10/24/2024 3:13 PM ED T Body Mass Index 42.44 10/24/2024 3:13 PM EDT Plan of Treatment Upcoming Encounters Date Type Department Care Team (Late st Contact Info) Description 11/24/2024 3:20 PM EDT Office Visit [facility] [address] [place] [address] NnaCristiane pearson N, ROUSTABOUT-BALLING HEAD TENDER [address] [place] [address] 01/23/2025 1:00 PM EST Office Visit [facility] [address] [phone] Pacheco Hernandez MD [address] [place] [address] Health Maintenance Due Date Last Done Comments Pap Smear 11/30/2023 Chlamydia Screening 06/29/2024 06/30/2023, 02/07/2023, 01/19/2023, Additional history exists COVID-19 Vaccine (2024-04 6 season) 2024 10/31/2020, 10/10/2020 Influenza Vaccine 10/31/2024 11/24/2022 Tobacco Screening 10/12/2025 10/12/2024 Adult BMI Follow Up Plan 10/24/2025 10/24/2024 Adult BMI Screening 10/24/2025 10/24/2024 Depression Screening 10/24/2025 10/24/2024, 06/12/19 24 DTaP,Tdap and Td Vaccines (8 - Td or Tdap) 01/06/2033 01/06/2023, 11/01/2014, 11/26/2007, Additional history exists Goals Goal Patient Goal Type Associated Problems Recent Progress Patient-Stated? Author home General Yes Aurelia Zafar, ROSEY Note: Evaluation of progress towards goal: Safe dc transition from hospital to home with family support. Medical Devices Not on file Procedures Procedure Name Priority Date/Time Associated Diagnosis Comments LIPID PROFILE Routine 09/26/2024 11:05 AM EDT Encounter for lipid screening for cardiovascular disease INSULIN Routine 09/26/2024 11:05 AM EDT Prediabetes PCOS (polycystic ovarian syndrome) EXTRA TUBES SST TOP Routine 08/31/2024 5 :29 AM EDT EXTRA TUBES BLUE TOP Routine 08/31/2024 5:29 AM EDT EXTRA TUBES Routine 08/31/2024 5:29 AM EDT CBC WITH AUTO DIFFERENTIAL Routine 08/31/2024 5:29 AM EDT MAGNESIUM Routine 08/31/2024 5:29 AM EDT COMPREHENSIVE METABOLIC PANEL Routine 08/31/2024 5:29 AM EDT VASC CAROTID DUPLEX BILATERAL Routine 08/30/2024 4:07 PM EDT ECHO COMPLETE WO CONTRAST Routine 08/30/2024 1:[address] BRAIN WO CONT Routine 08/30/2024 12:3 1 PM EDT RESP PATHOGENS PANEL/SARS-COV-2 Routine 08/30/2024 12:10 PM EDT , URINE Routine 08/30/2024 11:5 7 AM EDT HEMOGLOBIN A1C Add-On 08/30/2024 5:42 AM EDT CBC WITH AUTO DIFFERENTIAL Routine 08/30/2024 5:42 AM EDT EXTRA TUBES SST TOP Routine 08/30/2024 5 :41 AM EDT EXTRA TUBES BLUE TOP Routine 08/30/2024 5:41 AM EDT FERRITIN Add-On 08/30/2024 5:41 AM EDT IRON AND TIBC Add-On 08/30/2024 5:41 AM EDT EXTRA TUBES Routine 08/30/2024 5:41 AM EDT MAGNESIUM Routine 08/30/2024 5:41 AM EDT COMPREHENSIVE METABOLIC PANEL Routine 08/30/2024 5:41 AM EDT TROP I, HIGH SENSITIVITY 1 HOUR STAT 08/29/2024 12:27 PM EDT XR CHEST 1 VW STAT 08/29/2024 11:15 AM EDT EXTRA TUBES BLUE TOP Routine 08/29/2024 10:53 AM EDT EXTRA TUBES Routine 08/29/2024 10:53 AM EDT TROPONIN I, HIGH SENSITIVITY 0 HOUR STAT 08/29/2024 10:53 AM EDT THYROID PROFILE INCLUDES TSH FT4 STAT 08/29/2024 10:53 AM EDT TROPONIN I, HIGH SENSITIVITY 0 HOUR STAT 08/29/2024 10:53 AM EDT MAGNESIUM STAT 08/29/2024 10:53 AM EDT BASIC METABOLIC PANEL STAT 08/29/2024 10:53 AM EDT CBC WITH AUTO DIFFERENTIAL STAT 08/29/2024 10:53 AM EDT ECG 12-LEAD STAT 08/29/2024 10:27 AM EDT CHLAMYDIA/GC BY PCR RONEN SWAB STAT 06/30/2023 9:35 AM EDT from Last 3 Months or Most Recently Relevant to Health Maintenance Results * (ABNORMAL) Insulin (09/26/2024 11:05 AM EDT) [facility] INSULIN 33.80(H) 1.00 - 23.00 uIU/mL 09/26/2024 2:01 PM EDT [facility] Blood Venous blood / Unknown Venipuncture / Unknown 09/26/2024 11:05 AM EDT 09/26/2024 11:05 AM EDT Narrative [facility] - 09/26/2024 2:01 PM EDT Ref. range is for FASTING NON-DIABETIC POPULATION. us Assumpta N Nnaji ROUSTABOUT-BALLING HEAD TENDER LAB BLOOD ORDERABLES F inal Result [facility] [address] [place] [address], [place] [phone] * (ABNORMAL) Lipid panel (09/26/2024 11:05 AM EDT) CHOLESTEROL 99(L) 150 - 200 mg/dL 09/26/2024 1:37 PM EDT [facility] TRIGLYCERIDE 68 27 - 150 mg/dL 09/26/2024 1:37 PM EDT [facility] HDL CHOLESTEROL 43 >39 mg/dL 1:37 PM EDT [facility] Comment: HDL <40 mg/dL - High Risk HDL > or = 40mg/dL- Desirable HDL >60 mg/dL - Negative Risk LDL (CALC) 42 <130 mg/dL 09/26/2024 1:37 PM EDT [facility] Comment: LDL <100 mg/dL - Desirable LDL >160 mg/dL - High Risk CHOLESTEROL:HDL 2.3 1.0 - 5.0 1:37 PM EDT [facility] VERY LOW LIPOPROTEIN 14 0 - 30 mg/dL 09/26/2024 1:37 PM EDT [facility] Blood Venous blood / Unknown Venipuncture / Unknown 09/26/2024 11:05 AM EDT 09/26/2024 11:05 AM EDT us Assumpta N Nnaji ROUSTABOUT-BALLING HEAD TENDER LAB BLOOD ORDERABLES F inal Result [facility] [address] [place] [address], [place] [phone] * SST TOP (08/31/2024 5:29 AM EDT) Only the most recent of2 resultswithin the time period is included. Extra Tube Auto Resulted 08/31/2024 7:01 AM EDT [facility] Blood Venous blood / Unknown Venipuncture / Unknown 08/31/2024 5:29 AM EDT 08/31/2024 5:54 AM EDT us Amadou Abad MD LAB BLOOD ORDERABLES Final Result [facility] [address] [place] [address], [place] * Light Blue Top (08/31/2024 5:29 AM EDT) Only the most recent of3 resultswithin the time period is included. Extra Tube Auto Resulted 08/31/2024 7:01 AM EDT [facility] Blood Venous blood / Unknown Venipuncture / Unknown 08/31/2024 5:29 AM EDT 08/31/2024 5:54 AM EDT us Amadou Abad MD LAB BLOOD ORDERABLES Final Result [facility] [address] [place] [address], [place] * (ABNORMAL) CBC auto differential (08/31/2024 5:29 AM EDT) Only the most recent of3 resultswithin the time period is included. WBC 13.8(H) 4 - 11 x10E9/L 08/31/2024 6:02 AM EDT [facility] RBC Count 4.45 3.8 - 5.2 X10E12/L 08/31/2024 6:02 AM EDT [facility] Hemoglobin 11.5(L) 11.7 - 15.5 g/dL 08/31/2024 6:02 AM EDT [facility] Hematocrit 34.3(L) 35 - 47 % 08/31/2024 6:02 AM EDT [facility] MCV 77(L) 80 - 100 fL 08/31/2024 6:02 AM EDT [facility] MCH 25.8(L) 27 - 34 pg 08/31/2024 6:02 AM EDT [facility] MCHC 33.5 32 - 36 g/dL 08/31/2024 6:02 AM EDT [facility] RDW 15.0 11.5 - 15 % 08/31/2024 6:02 AM EDT [facility] Platelet Count 283 150 - 450 X10E9/L 08/31/2024 6:02 AM EDT [facility] MPV 10.0 7 - 12 fL 08/31/2024 6:02 AM EDT [facility] Neutrophils % 91.5 % 08/31/2024 6:02 AM EDT [facility] Lymphocytes % 6.4 % 08/31/2024 6:02 AM EDT [facility] Monocytes % 1.6 % 08/31/2024 6:02 AM EDT [facility] Eosinophils % 0.0 % 08/31/2024 6:02 AM EDT [facility] Basophils % 0.5 % 08/31/2024 6:02 AM EDT [facility] Neutrophils Absolute (A) 12.6(H) 1.5 - 6.6 10*3/uL 08/31/2024 6:02 AM EDT [facility] Lymphocytes Absolute 0.9(L) 1.0 - 3.5 10*3/uL 08/31/2024 6:02 AM EDT [facility] Monocytes Absolute 0.2 0.0 - 0.9 10*3/uL 08/31/2024 6:02 AM EDT [facility] Eosinophils Absolute 0.0 0.0 - 0.4 10*3/uL 08/31/2024 6:02 AM EDT [facility] Basophils Absolute 0.1 0.0 - 0.2 10*3/uL 08/31/2024 6:02 AM EDT [facility] Differential Type AUTOMATED DIFFERENTIAL 08/31/2024 6:02 AM EDT [facility] Blood Venous blood / Unknown Venipuncture / Unknown 08/31/2024 5:29 AM EDT 08/31/2024 5:50 AM EDT us Estiven Mendoza ROUSTABOUT-BALLING HEAD TENDER LAB BLOOD ORDERABLES Fin al Result [facility] [address] [place] [address], [place] * Magnesium (08/31/2024 5:29 AM EDT) Only the most recent of3 resultswithin the time period is included. MAGNESIUM 2.0 1.8 - 2.6 mg/dL 08/31/2024 6:21 AM EDT [facility] Blood Venous blood / Unknown Venipuncture / Unknown 08/31/2024 5:29 AM EDT 08/31/2024 5:50 AM EDT us Estiven Mendoza ROUSTABOUT-BALLING HEAD TENDER LAB BLOOD ORDERABLES Fin al Result [facility] [address] [facility] [place] [address], * (ABNORMAL) Comprehensive metabolic panel (08/31/2024 5:29 AM EDT) Only the most recent of2 resultswithin the time period is included. SODIUM 139 134 - 146 mmol/L 08/31/2024 6:21 AM EDT [facility] POTASSIUM 4.0 3.5 - 5.0 mmol/L 08/31/2024 6:21 AM EDT [facility] CHLORIDE 109 98 - 109 mmol/L 08/31/2024 6:21 AM EDT [facility] CARBON DIOXIDE 20(L) 22 - 32 mmol/L 08/31/2024 6:21 AM EDT [facility] ANION GAP 10 5 - 15 mmol/L 08/31/2024 6:21 AM EDT [facility] BLOOD UREA NITROGEN 9 5 - 23 mg/dL 08/31/2024 6:21 AM EDT [facility] CREATININE 0.55 0.40 - 1.00 mg/dL 08/31/2024 6:21 AM EDT [facility] Comment:METHOD TRACEABLE TO IDMS STANDARD GLUCOSE 197(H) 65 - 99 mg/dL 08/31/2024 6:21 AM EDT [facility] CALCIUM 9.1 8.5 - 10.5 mg/dL 08/31/2024 6:21 AM EDT [facility] TOTAL PROTEIN 7.1 6.0 - 8.0 g/dL 08/31/2024 6:21 AM EDT [facility] ALBUMIN 3.7 3.2 - 5.3 g/dL 08/31/2024 6:21 AM EDT [facility] ALKALINE PHOSPHATASE 87 39 - 130 U/L 08/31/2024 6:21 AM EDT [facility] AST 17 <=41 U/L 08/31/2024 6:21 AM EDT [facility] ALT 15 <=31 U/L 08/31/2024 6:21 AM EDT [facility] BILIRUBIN,TOTAL 0.3 0.3 - 1.2 mg/dL 08/31/2024 6:21 AM EDT [facility] EGFR Non-Race Dependent >90 >=60 ml/min/1.7 3sq.m 08/31/2024 6:21 AM EDT [facility] Comment: eGFR not reported due to non-numeric value for Creatinine. Reported eGFR is based on the CKD-EPI 2020 equation that does not use a race coefficient. Blood Venous blood / Unknown Venipuncture / Unknown 08/31/2024 5:29 AM EDT 08/31/2024 5:50 AM EDT us Estiven Mendoza [employer]ALLING HEAD TENDER LAB BLOOD ORDERABLES Fin al Result Performing Organization Address City/State/[facility] de Phone Number [facility] [address] [place] [address], [place] * Vas carotid duplex bilateral (08/30/2024 4:07 PM EDT) Anatomical Region Laterality Modality Vascular Bilateral Ultrasound 08/30/2024 4:15 PM EDT Narrative 08/30/2024 7:32 PM EDT Right: No plaque or significant flow abnormality of the extracranial carotid arteries; ICA 84/32 cm/sec. Antegrade vertebral artery flow. Left: No plaque or significant flow abnormality of the extracranial carotid arteries; ICA 76/26 cm/sec. Antegrade vertebral artery flow. General: In-patient, bedside examination. Left brachial blood pressure not available due to IV location. Conclusions: BILATERAL: Plaque without significant stenosis (<50%) of the internal carotid artery. Antegrade vertebral artery flow. Procedure Note Je Robert MD - 08/30/2024 Right: No plaque or significant flow abnormality of the extracranialcarotid arteries; ICA 84/32 cm/sec. Antegrade vertebral artery flow. Left: No plaque or significant flow abnormality of the extracranialcarotid arteries; ICA 76/26 cm/sec. Antegrade vertebral artery flow. General: In-patient, bedside examination. Left brachial blood pressure notavailable due to IV location. Conclusions: BILATERAL: Plaque without significant stenosis (<50%) of theinternal carotid artery. Antegrade vertebral artery flow. us Estiven Mendoza ROUSTABOUT[employer]BALLING HEAD TENDER CV VASCULAR ORDERABLES F inal Result * Echo complete W/O contrast (08/30/2024 1:58 PM EDT) FS 42 28 - 44 % XCELERA LVIDd 4.73 5.92 - 8.22 cm XCELERA LVIDs 2.72 3.46 - 5.23 cm XCELERA IVS 0.80 0.6 - 1.1 cm XCELERA PW 0.86 0.6 - 1.1 cm XCELERA LVOT diameter 1.90 cm XCELERA TDI 15.70 cm/s XCELERA MV TDI E' (medial) 13.00 cm/s XCELERA LA Volume Index 13.5 mL/m2 XCELERA E/A ratio 1.86 XCELERA E wave deceleration time 225.00 msec XCELERA MV Peak E Ramin 102.00 cm/s XCELERA MV Peak A Ramin 54.80 cm/s XCELERA LA size 3.70 cm XCELERA Aortic root 2.50 cm XCELERA LA volume 29.40 cm3 XCELERA RV diastolic dimension (basal) 35.4 mm XCELERA TAPSE 2.24 cm XCELERA AV peak ramin 154.00 cm/s XCELERA LVOT peak ramin 1.36 m/s XCELERA AV peak gradient 9.49 mmHg XCELERA MV pressure 1/2 time 66.00 ms XCELERA MV valve area p 1/2 method 3.33 cm2 XCELERA TR Peak Ramin 2.1 m/s XCELERA TR peak gradient 18.00 mmHg XCELERA LV ESV A2C 33.10 mL XCELERA LV ESV A4C 25.60 mL XCELERA LV RWT 2D 36.24 XCELERA Left Ventricle Mass 128.61834 [id number] 2 g XCELERA Interventricular Septum Diastolic Thickness by 2D 7.95 cm XCELERA TR max ramin 2.10 m/s XCELERA MV E' average 15.0 cm/s XCELERA Est. RA pressure 3 mmHg XCELERA RV Peak Systolic Pressure 21 mmHg XCELERA TASV 14.0 cm/s XCELERA RA area 14.0 cm2 XCELERA ZLVIDS -3.53 XCELERA ZLVIDD -3.89 XCELERA Energy loss index 10.55 XCELERA Anatomical Region Laterality Modality Chest N/A Ultrasound Narrative 08/30/2024 5:39 PM EDT Left Ventricle: Left ventricle appears normal in size. Systolic function is normal with an ejection fraction of 60-65%. There is no diastolic dysfunction and normal left atrial pressure. Right Ventricle: Right ventricular size appears normal. Systolic function is normal. Pulmonic Valve: There is mild regurgitation. There is no evidence of pulmonic valve stenosis. Left Ventricle Left ventricle appears normal in size. Wall thickness is normal. Systolic function is normal with an ejection fraction of 60-65%. No obvious regional wall motion abnormalities, however some segments are poorly visualized. There is no diastolic dysfunction and normal left atrial pressure. Lateral E' is 15.70 cm/s. Medial E' is 13.00 cm/s. Average E' is 15.0 cm/s. Right Ventricle Right ventricular size appears normal. The right ventricular basal diameter is 35.4 mm. Systolic function is normal. Left Atrium Left atrium is normal in size. The left atrial volume index is 13.5 mL/m2. Right Atrium Right atrium is normal in size. The right atrial area is 14.0 cm2. IVC/SVC The right atrial pressure is estimated at 3 mmHg. IVC appears normal. There is normal collapse with deep inspiration. Mitral Valve Mitral valve structure is normal. There is no regurgitation or stenosis. Tricuspid Valve Tricuspid valve appears to be normal. There is trace regurgitation. There is no evidence of tricuspid valve stenosis. RVSP calculated at 21 mmHg. RVSP is based on RA pressure of 3 mmHg. Aortic Valve The aortic valve is trileaflet. There is no regurgitation or stenosis. Pulmonic Valve Pulmonic valve structure is grossly normal. There is mild regurgitation. There is no evidence of pulmonic valve stenosis. Ascending Aorta The aortic root is normal in size. Pericardium There is no pericardial effusion. Study Details A complete echo was performed using complete 2D, color flow Doppler and spectral Doppler. The study was difficult due to patient's body habitus. Wall Scoring Baseline Score Index: 1.00 The left ventricular wall motion is normal. us Estiven Mendoza [employer]ALLING HEAD TENDER CV ECHO ORDERABLES Final Result * CT brain without contrast (08/30/2024 12:31 PM EDT) Anatomical Region Laterality Modality Neuro, Head, Head and Neck, Neuro Covera N/A Computed Tomography 08/30/2024 12:4 1 PM EDT Narrative 08/30/2024 12:[address] BRAIN WO CONT INDICATION: Dizziness. TECHNIQUE: CT of the head without intravenous contrast. Reviewed in brain, bone, and soft tissue windows. COMPARISON: 08/21/2018. FINDINGS: No intracranial hemorrhage. No territorial loss of reyes-white differentiation. The ventricular system is normal in size and morphology. No extra-axial fluid collections or shift of midline structures. Patent basal cisterns. No depressed or displaced calvarial fracture. IMPRESSION: 1. No acute intracranial abnormality. 2. MRI would better assess for occult abnormalities such as acute ischemia. All CT scans at this facility use dose modulation, iterative reconstruction, and/or weight based dosing when appropriate to reduce radiation dose to as low as reasonably achievable. Finalized by Niko Dumont MD on 08/30/2024 12:44 PM Procedure Note Niko Dumont MD - 08/30/2024 CT BRAIN WO CONT INDICATION: Dizziness. TECHNIQUE: CT of the head without intravenous contrast. Reviewed inbrain, bone, and soft tissue windows. COMPARISON: 08/21/2018. FINDINGS: No intracranial hemorrhage. No territorial loss of reyes-whitedifferentiation. The ventricular system is normal in size and morphology. No extra-axialfluid collections or shift of midline structures. Patent basal cisterns. No depressed or displaced calvarial fracture. IMPRESSION: 1. No acute intracranial abnormality. 2. MRI would better assess for occult abnormalities such as acuteischemia. All CT scans at this facility use dose modulation, iterativereconstruction, and/or weight based dosing when appropriate to reduceradiation dose to as low as reasonably achievable. Finalized by Niko Dumont MD on 08/30/2024 12:44 PM Estiven Mendoza [employer]OUSTABOUT[employer]BALLING HEAD TENDER IMG CT ORDERABLES Final Result * Resp Pathogens Panel/SARS CoV-2 (08/30/2024 12:10 PM EDT) [facility] SARS COV 2 BY PCR Not Detected Not Detected 08/30/2024 7:47 PM EDT [facility] ADENOVIRUS Not Detected Not Detected 08/30/2024 7:47 PM EDT [facility] CORONAVIRUS 229E Not Detected Not Detected 08/30/2024 7:47 PM EDT [facility] CORONAVIRUS HKU1 Not Detected Not Detected 08/30/2024 7:47 PM EDT [facility] CORONAVIRUS NL63 Not Detected Not Detected 08/30/2024 7:47 PM EDT [facility] CORONAVIRUS OC43 Not Detected Not Detected 08/30/2024 7:47 PM EDT [facility] HUMAN METAPNEUVIRUS Not Detected Not Detected 08/30/2024 7:47 PM EDT [facility] RHINO/ENTEROVIRU S Not Detected Not Detected 08/30/2024 7:47 PM EDT [facility] INFLUENZA A Not Detected Not Detected 08/30/2024 7:47 PM EDT [facility] INFLUENZA B Not Detected Not Detected 08/30/2024 7:47 PM EDT [facility] PARAINFLUENZA 1 Not Detected Not Detected 08/30/2024 7:47 PM EDT [facility] PARAINFLUENZA 2 Not Detected Not Detected 08/30/2024 7:47 PM EDT [facility] PARAINFLUENZA 3 Not Detected Not Detected 08/30/2024 7:47 PM EDT [facility] PARAINFLUENZA 4 Not Detected Not Detected 08/30/2024 7:47 PM EDT [facility] RESP SYNCYTIAL VIRUS Not Detected Not Detected 08/30/2024 7:47 PM EDT [facility] BORD PARAPERTUSSIS Not Detected Not Detected 08/30/2024 7:47 PM EDT [facility] BORDETELLA PERTUSSIS Not Detected Not Detected 08/30/2024 7:47 PM EDT [facility] CHLAM.PNEUMONIAE Not Detected Not Detected 08/30/2024 7:47 PM EDT [facility] MYCOPLASMA PNEUMONIAE Not Detected Not Detected 08/30/2024 7:47 PM EDT [facility] Swab Nasopharyngeal structure / Unknown 08/30/2024 12:10 PM EDT 08/30/2024 1:47 PM EDT [facility] - 08/30/2024 7:47 PM EDT The BioFire Respiratory Panel 2.1 (RP2.1) is a multiplexed nucleic acid test intended for the simultaneous qualitative detection and differentiation of nucleic acid from multiple viral and bacterial respiratory organisms, including nucleic acid from Severe Acute Respiratory Syndrome Coronavirus 2 (SARS-CoV-2), in nasopharyngeal swabs obtained from individuals suspected of COVID-19 by their healthcare provider. Testing is limited to laboratories certified under the Clinical Laboratory Improvement Amendments of 1988 (CLIA), to perform high complexity or moderate complexity tests. SARS-CoV-2 RNA and nucleic acids from the other respiratory viral and bacterial organisms identified by this test are generally detectable in nasopharyngeal swabs during the acute phase of infection. The detection and identification of specific viral and bacterial nucleic acids from individuals exhibiting signs and/or symptoms of respiratory infection is indicative of the presence of the identified microorganism and aids in the diagnosis of respiratory infection if used in conjunction with other clinical and epidemiological information. Positive results are indicative of the presence of the identified organism, but do not rule out co-infection with other pathogens. The agent(s) detected by the BioFire RP2.1 may not be the definite cause of disease and clinical correlation with patient history and other diagnostic information is necessary to determine patient infection status. Negative results in the setting of a respiratory illness may be due to infection with pathogens not detected by this test, or lower respiratory tract infection that may not be detected by a nasopharyngeal specimen. Negative results do not preclude SARS-CoV-2 infection and should not be used as the sole basis for patient management decisions. Negative JOSEPH-CoV-2 results must be combined with clinical observations, patient history and epidemiological information. Negative results for other organisms identified by the test may require additional laboratory testing when evaluating a patient with possible respiratory tract infection. Amadou Abad MD MICROBIOLOGY - GENERAL ORD ERABLES Final Result Performing Organization Address City/[facility]/ZIP Co de Phone Number [facility] [address] [place] [address], * , urine (08/30/2024 11:57 AM EDT) URINE Negative Negative 08/30/2024 12:10 PM EDT [facility] Urine Urine specimen collection, clean catch / Unknown Collection / Unknown 08/30/2024 11:57 AM EDT 08/30/2024 12:01 PM EDT Estiven Mendoza [employer]STABOUT[employer]BALLING HEAD TENDER URINE ORDERABLES Final R esult [facility] [address] [place] [address], * (ABNORMAL) Hemoglobin A1c (08/30/2024 5:42 AM EDT) HEMOGLOBIN A1C 5.8(H) 4.4 - 5.6 % 08/30/2024 7:00 PM EDT [facility] Comment: ADA Guidelines Result HgbA1c Normal : less than 5.7 % Prediabetes : 5.7 % to 6.4 % Diabetes : > 6.4 % Use with caution in patients with abnormal hemoglobin variants as the half-life of red blood cells and in vivo glycation rates are affected. EST. AVERAGE GLUCOSE 120 mg/dL 08/30/2024 7:00 PM EDT [facility] Blood Venous blood / Unknown Venipuncture / Unknown 08/30/2024 5:42 AM EDT 08/30/2024 5:57 AM EDT us Amadou Abad MD LAB BLOOD ORDERABLES Final Result [facility] [address] [place] [address], [place] [phone] * (ABNORMAL) Iron and TIBC (08/30/2024 5:41 AM EDT) IRON 45(L) 50 - 170 ug/dL 08/30/2024 6:28 PM EDT [facility] TRANSFERRIN 290 168 - 336 mg/dL 08/30/2024 6:28 PM EDT [facility] IRON BINDING 406 250 - 425 ug/dL 08/30/2024 6:28 PM EDT [facility] IRON SATURATION 11(L) 15 - 50 % SATURATION 08/30/2024 6:28 PM EDT [facility] Blood Venous blood / Unknown Venipuncture / Unknown 08/30/2024 5:41 AM EDT 08/30/2024 6:02 AM EDT us Amadou Abad MD LAB BLOOD ORDERABLES Final Result [facility] [address] [place] [address], [place] [phone] * Ferritin (08/30/2024 5:41 AM EDT) FERRITIN 12 11 - 307 ng/mL 08/30/2024 6:44 PM EDT [facility] Blood Venous blood / Unknown Venipuncture / Unknown 08/30/2024 5:41 AM EDT 08/30/2024 6:02 AM EDT Amadou Abad MD LAB BLOOD ORDERABLES Final Result [facility] [address] [place] [address], [place] [phone] * Troponin I, High Sensitivity 1 Hour (08/29/2024 12:27 PM EDT) [facility] TROPONIN I, HIGH SENSITIVITY <2 <16 ng/L 08/29/2024 12:58 PM EDT [facility] Blood Venous blood / Unknown Venipuncture / Unknown 08/29/2024 12:27 PM EDT 08/29/2024 12:31 PM EDT Nora Chan MD LAB BLOOD ORDERABLES Final Result Performing Organization Address City/[facility]/ZIP Co de Phone Number [facility] [address] [place] [address], [place] * X-ray chest 1 view (08/29/2024 11:15 AM EDT) Anatomical Region Laterality Modality Body, Chest N/A Computed Radiogr aphy 08/29/2024 11:2 3 AM EDT Narrative 08/29/2024 11:24 AM EDT Portable chest: HISTORY: Chest pain. Single view of the chest was obtained and compared to prior exam dated 212.5. Cardiac and mediastinal contours are stable. No focal infiltrate or effusion. No pneumothorax seen. IMPRESSION: No acute findings Finalized by Adam Sin MD on 08/29/2024 11:24 AM Procedure Note Adam Sin MD - 08/29/2024 Portable chest: HISTORY: Chest pain. Single view of the chest was obtained and compared to prior exam [id number]. Cardiac and mediastinal contours are stable. No focal infiltrate oreffusion. No pneumothorax seen. IMPRESSION: No acute findings Finalized by Adam Sin MD on 08/29/2024 11:24 AM us Nora Chan MD IMG DIAGNOSTIC IMAGING ORD ERABLES Final Result * Troponin I, High Sensitivity 0 Hour (08/29/2024 10:53 AM EDT) Pathologist [facility] TROPONIN I, HIGH SENSITIVITY <2 <16 ng/L 08/29/2024 11:23 AM EDT [facility] Blood Venous blood / Unknown Venipuncture / Unknown 08/29/2024 10:53 AM EDT 08/29/2024 10:55 AM EDT us Nora Chan MD LAB BLOOD ORDERABLES Final Result Performing Organization Address City/[facility] Co de Phone Number [address] [place] [address], [place] * Thyroid profile includes TSH FT4 (08/29/2024 10:53 AM EDT) [facility] FREE T4 0.71 0.61 - 1.60 ng/dL 08/29/2024 11:35 AM EDT [facility] TSH 0.95 0.49 - 4.67 uIU/mL 08/29/2024 11:35 AM EDT [facility] Blood Venous blood / Unknown Venipuncture / Unknown 08/29/2024 10:53 AM EDT 08/29/2024 10:55 AM EDT us Nora Chan MD LAB BLOOD ORDERABLES Final Result Performing Organization Address City/[facility]/ZIP Co de Phone Number [address] [place] [address], [place] * (ABNORMAL) Basic Metabolic Panel (08/29/2024 10:53 AM EDT) SODIUM 138 134 - 146 mmol/L 08/29/2024 11:13 AM EDT [facility] POTASSIUM 3.5 3.5 - 5.0 mmol/L 08/29/2024 11:13 AM EDT [facility] CHLORIDE 105 98 - 109 mmol/L 08/29/2024 11:13 AM EDT [facility] CARBON DIOXIDE 26 22 - 32 mmol/L 08/29/2024 11:13 AM EDT [facility] ANION GAP 7 5 - 15 mmol/L 08/29/2024 11:13 AM EDT [facility] BLOOD UREA NITROGEN 14 5 - 23 mg/dL 08/29/2024 11:13 AM EDT [facility] CREATININE 0.62 0.40 - 1.00 mg/dL 08/29/2024 11:13 AM EDT [facility] Comment:METHOD TRACEABLE TO IDCT STANDARD GLUCOSE 104(H) 65 - 99 mg/dL 08/29/2024 11:13 AM EDT [facility] CALCIUM 9.1 8.5 - 10.5 mg/dL 08/29/2024 11:13 AM EDT [facility] EGFR Non-Race Dependent >90 >=60 ml/min/1.7 3sq.m 08/29/2024 11:13 AM EDT [facility] Comment: eGFR not reported due to non-numeric value for Creatinine. Reported eGFR is based on the CKD-EPI 2020 equation that does not use a race coefficient. Blood Venous blood / Unknown Venipuncture / Unknown 08/29/2024 10:53 AM EDT 08/29/2024 10:55 AM EDT us Nora Chan MD LAB BLOOD ORDERABLES Final Result [facility] [address] [facility] [place] [address], [place] * ECG 12 lead (08/29/2024 10:27 AM EDT) 08/29/2024 10:2 7 AM EDT Narrative TRACEMASTERVUE - 08/29/2024 11:43 AM EDT us Nora Chan MD ECG ORDERABLES Final Resu lt Performing Organization Address City/[facility]/ZIP Co de Phone Number TRACERUYERVROSALINE * Chlamydia/GC by PCR Ronen Swab (06/30/2023 9:35 AM EDT) Specimen source VAG 9:53 AM EDT [facility] Chlamydia DNA PCR Negative Negative^N egative 07/01/2023 11:25 AM EDT [facility] Comment: Chlamydia trachomatis not detected by nucleic acid amplification. This does not exclude the possibility of infection because results are dependent on adequate specimen collection. Gonorrhea DNA PCR Negative Negative^N egative 07/01/2023 11:25 AM EDT [facility] Comment: Neisseria gonorrhoeae not detected by nucleic acid amplification. This does not exclude the possibility of infection because results are dependent on adequate specimen collection. GENS 06/30/2023 9:35 AM EDT 06/30/2023 9:53 AM EDT Hector Kang MD MICROBIOLOGY - GENERAL ORDERABLE S Final Result Performing Organization Address City/[facility] Co de Phone Number [facility] [address] [facility] [place] [address] [facility] [address] [place] [address], [address] [place] [address] from Last 3 Months or Most Recently Relevant to Health Maintenance Insurance [employer] Advance Directives * Full Code (Latest Code Status on File) Date Activated Date Inactivated Comments 08/29/2024 4:32 PM 08/31/2024 4:07 PM * Full Code Date Activated Date Inactivated Comments 03/31/2023 9:23 PM 04/03/2023 5:31 PM * Full Code Date Activated Date Inactivated Comments 01/04/2023 8:01 PM 01/04/2023 11:17 PM * Full Code Date Activated Date Inactivated Comments 12/29/2022 9:45 PM 12/31/2022 3:29 PM * Full Code Date Activated Date Inactivated Comments 09/18/2022 3:16 PM 09/19/2022 9:10 PM Care Teams Pot Fisher Relationship Specialty Start Date End Date Cristiane Andino, ROUSTABOUT-BALLING HEAD TENDER [address] [place] [phone] PCP - General Family Medicine 09/26/24
--- OUTSIDE RECORDS SUMMARY | 2024-11-07 11:09 | XMS_ITS | Encounter Summary ---
Author Organization Repairy s tem Address [id number] [address] [place] [address] Care Team Providers Care Digital Community Manager Name Role Phone Cristiane Andino ORTHOTIST OR PROSTHETIST-RAIL CAR OPERATOR Primary Care Provider Encounter Details Date Type Department Care Team (Late Contact Info) Description 06/05/2023 Telephone [facility] - Women's Services [address] [place] [phone] Wilda White RN Social History Tobacco Use Types Packs/Day Years [...] often do you attend chur ch or christianity services? Never 09/18/2022 Do you belong to any clubs o r organizations such as christianity groups, unions, fraternal or athletic groups, or [...] Answer Date Recorded Total Score 1 09/18/2022 [facility] Occupat ional Health - Occupational Stress [...] things needed for daily living? No 03/18/2023 [place] Depression Scale Answer Date Recorded [place] Depression Scale Total 8 05/08/2023 The thought of harming myself has occurred to me . Hardly ever 05/08/2023 Housing Instability Answer Date Recorde d Are [...] Recorded Do you need help finding a [facility] career center and/or a training program? No 09/18/2022 Hunger Screening Answer Date Recorded Within the past 12 months we worried whether our food would run out before we got money to buy more. Never True 05/08/2023 Within the past 12 months th e food we bought just didn't last and we didn't have money to get more. Never True 05/08/2023 Purpose - Life Answer Date Recorded Purpose [...] Office Visit [facility] [address] [place] [address] Cristiane Andino, ORTHOTIST OR PROSTHETIST-RAIL CAR OPERATOR [address] [place] [address] 01/23/2025 1:00 PM EST Office Visit [facility] [address] [place] [address] Pacheco Hernandez MD [address] [place] [address] documented as of this encounter Goals Goal [...] documented as of this encounter Care Teams Digital Community Manager Relationship Specialty Start Date End Date Cristiane Andino, ORTHOTIST OR PROSTHETIST-RAIL CAR OPERATOR [address] [place] [phone] PCP - General Family Medicine 09/26/24 documented as of this encounter
--- OUTSIDE RECORDS SUMMARY | 2024-11-07 11:09 | XMS_ITS | Encounter Summary ---
Author Organization [employer] [facility] [employer] Address [id number] [address] [place] [address] Care Team Providers Care Fat Pressroom Worker Name Role Phone Cristiane Andino DELIVERER OUTSIDE-CERTIFIED CREDIT COUNSELOR Primary Care Provider Reason for Visit * Reason Comments Med Refill Encounter Details Date Type Department Care Team (Late st Contact Info) Description 11/12/2019 Refill [facility] Obstetrics/Gynecology [address] [facility] [place] [phone] Eulalia Mendoza APRN-JOCE [address] [place], [place] [id number] Irregular menstrual bleeding Social History Tobacco Use [...] * Telephone Encounter - LORRAINE Mcginnis - 11/12/2019 12:47 AM EDT Appointment needed before refill can be sent documented in this encounter Plan of Treatment Upcoming Encounters Date Type Department Care Team (Late st Contact Info) Description 11/24/2024 3:20 PM EDT Office Visit [facility] Family Medicine [address] [facility] [place] [phone] Cristiane Andino APRN-CNP [address] [facility] [place] [address] 01/23/2025 1:00 PM EST Office Visit [facility] Cardiology [address] [facility] [address] [place] [address] Pacheco Hernandez MD [address] [place] [address] documented as of this encounter Visit Diagnoses [...] documented as of this encounter Care Teams Fat Pressroom Worker Relationship Specialty Start Date End Date Cristiane Andino, NABIL-CERTIFIED CREDIT COUNSELOR [address] [facility] [place] [address] PCP - General Family Medicine 09/26/24 documented as of this encounter
--- OUTSIDE RECORDS SUMMARY | 2024-11-07 11:09 | XMS_ITS | Encounter Summary ---
Author Organization [facility] [employer] Address [id number] [address] [place] [address] Care Team Providers Care Business Administration Professor Name Role Phone Cristiane Andion WANIGAN CLERK-PRODUCTION ENGINEER TRACK Primary Care Provider Reason for Visit * Reason Comments Med Refill Encounter Details Date Type Department Care Team (Late Contact Info) Description 11/23/2019 Refill [facility] Obstetrics/Gynecology [address] [facility] [place] [phone] Eulalia Mendoza, WANIGAN CLERK-[place] [address] [place], [place] [phone] Irregular menstrual bleeding Social History Tobacco Use [...] Encounters Date Type Department Care Team (Late Contact Info) Description 11/24/2024 3:20 PM EDT Office Visit [facility] Family Medicine [address] [facility] [place] [address] Cristiane Andino, WANIGAN CLERK-PRODUCTION ENGINEER TRACK [address] [place] [address] 01/23/2025 1:00 PM EST Office Visit [facility] Cardiology [address] [place] [phone] Pacheco Hernandez MD [address] [place], [place] [phone] documented as of this encounter Visit Diagnoses [...] documented as of this encounter Care Teams Business Administration Professor Relationship Specialty Start Date End Date Cristiane Andino, WANIGAN CLERK-PRODUCTION ENGINEER TRACK [address] [place] [address] PCP - General Family Medicine 09/26/24 documented as of this encounter
--- OUTSIDE RECORDS SUMMARY | 2024-11-07 11:09 | XMS_ITS | Encounter Summary ---
Author Organization [employer] Address [id number] [address] [place] [address] Care Team Providers Care Foamite Mixer Name Role Phone Cristiane Andino PRODUCTION SUPERVISOR OFF SHIFT-LOCOMOTIVE INSPECTOR Primary Care Provider Encounter Details Date Type Department Care Team (Latest Contact Info) Description 10/24/2024 Travel Social History Tobacco Use Types Packs/Day Years Used Date Smoking Tobacco: Never Smokeless Tobacco: Never Alcohol Use Standard Drinks/Week Comments Yes 0 (1 standard drink = 0.6 oz pur e alcohol) [facility] Utilities Answer Date Recorded [...] attend chur ch or adventist services? Never 08/29/2024 Do you belong to any clubs o r organizations such as baptism groups, unions, fraternal or athletic groups, or [...] Answer Date Recorded Total Score 0 10/24/2024 [facility] [place] [facility] - Occupational Stress [...] things needed for daily living? No 09/20/2024 [place] Depression Scale Answer Date Recorded [place] Depression Scale Total 1 06/12/2023 The thought [...] Recorded Do you need help finding a the [facility] career [facility] and/or a training program? [...] to sit still 3 10/24/2024 3:11 PM AMINAHT Adelina Francois CMA Becoming easily annoyed or irritable 0 10/24/2024 3:11 PM EDT Adelina Francois CMA Feeling afraid as if somethi ng awful might happen 3 10/24/2024 3:11 PM EDT Adelina Francois CMA MARTY-7 Total Score 18 10/24/2024 3:11 PM EDT Argelia Francois CMA documented as of this encounter Plan of Treatment Upcoming Encounters Date Type Department Care Team (Late st Contact Info) Description 11/24/2024 3:20 PM EDT Office Visit [facility] Family Medicine [address] [facility] [place] [phone] Cristiane Andino N, PRODUCTION SUPERVISOR OFF SHIFT-LOCOMOTIVE INSPECTOR [address] [facility] [place] [address] 01/23/2025 1:00 PM EST Office Visit [facility] Cardiology [address] [place] [address] Pacheco Hernandez MD [address] [place] [address] documented as of this encounter Goals Goal [...] documented as of this encounter Care Teams Foamite Mixer Relationship Specialty Start Date End Date Cristiane Andino, PRODUCTION SUPERVISOR OFF SHIFT-LOCOMOTIVE INSPECTOR [address] [place] [address] PCP - General Family Medicine 09/26/24 documented as of this encounter
--- OUTSIDE RECORDS SUMMARY | 2024-11-07 11:13 | XMS_ITS | CCD ---
Author Organization [facility] Care Team Providers Care Bread Distributor Name Role Phone Unavailable Primary Care Provider Unavailabl e ADAPPA, SRI Referring Unavailable [place] Unavailable Unavailable Primary Care Provider Unavailabl e Shelbie Finch Unavailable FAHAD ECHEVARRIA Admitting Unavailable SHELBIE FINCH Primary Care Unavailable FAHAD ECHEVARRIA Attending Unavailable SHELBIE FINCH Consulting Unavailable SHELBIE FINCH Attending Unavailable SHELBIE FINCH Admitting Unavailable SHELBIE FINCH Primary Care Unavailable Jolene Love Unavailable No Pcp, No Pcp Primary Care Provider Unavailabl e Unavailable Primary Care Provider Unavailabl e No Pcp, No Pcp Primary Care Provider Unavailabl e NO FAMILY, PHYSICIAN Primary Care Provider Unava ilable Alpesh Singh MD Attending Provider No Pcp, No Pcp Primary Care Provider Unavailabl e ELISA ARCE Attending Unavailable HILTON BOWIE Attending Unavailable BEATRIZ KEBEDE Attending Unavailable NO [...] NO PCP, NO PCP Primary Care Unavailable Unavailable Primary Care Provider Unavailabl e NO FAMILY, PHYSICIAN Primary Care Provider Unava ilable Izzy Ortiz APRN Attending Provider ERNESTO DAVE Attending Unavailable Izzy Ortiz Admitting Unavail able Izzy Ortiz Attending Unavail able NO FAMILY, PHYSICIAN Primary Care Unavailable Alpesh Singh Admitting Unavailab le Alpesh Singh Attending Unavailab le NO FAMILY, PHYSICIAN Primary Care Unavailable No Pcp, No Pcp Primary Care Provider Unavailreanna Andino STAFF RN-JOCE, Assumpta N Primary Care Provider NO PCP, NO PCP Primary Care Unavailable LAUREN ROJAS Attending Unavailable NO PCP, NO PCP Primary Care Unavailable NO PCP, NO PCP Primary Care Unavailable AJ FLORES Attending Unavailable NO PCP, NO PCP Primary Care Unavailable NO PCP, NO PCP Primary Care Unavailable MAVIS ROCK Referring Unavailable NO PCP, NO PCP Primary Care Unavailable DANIEL GARCIA Attending Unavailable NO PCP, NO PCP Primary Care Unavailable NO PCP, NO PCP Primary Care Unavailable PREMA REYES T Admitting Unavailable REYES, RUQIYYA T Attending Unavailable NNAJI, ASSUMPTA N Referring Unavailable NNAJI, ASSUMPTA N Primary Care Unavailable OLGA LIDIA MENON Attending Unavailable NNAJI, ASSUMPTA N Primary Care Unavailable NNAJI, ASSUMPTA N Attending Unavailable NO PCP, NO PCP Primary Care Unavailable NNAJI, ASSUMPTA N Attending Unavailable NNAJI, ASSUMPTA N Primary Care Unavailable Allergies Allergy Classification Reported Allergen(s) Allergy Type Date of Onset Reaction(s) Facility (13 sources) Morphine; Translations: [MORPHINE] Drug Allergy 5 GI intolerance, GI Disturbance [facility] Work Phone: (1 source) Morphine Drug Allergy 5 [facility] Repository (2 sources) metFORMIN; Translations: [METFORMIN] Drug Allergy 5 Diarrhea, Nausea [facility] Medications Current Medications Medication Drug Class(es) Dates Sig (Normalized) Sig (Original) amoxicillin 875 mg / clavulanate 125 mg [...] by mouth in the morning. 08/20/2023 Active ascorbic acid 500 mg oral tablet (9 sources) Vitamin C Start: 09-22-2024 take 1 tablet by mouth in the morning ascorbic acid (VITAMIN C) 500 mg tablet Indications: Iron deficiency anemia, unspecified iron deficiency anemia type Take 1 tablet (500 mg total) by mouth in the morning. 90 tablet 1 09/22/2024 Active Blood Pressure Monitor - (1 source) [...] 325 mg oral tablet (20 sources) Start: 09-22-2024 take 1 tablet by mouth in the morning ferrous sulfate 325 (65 FE) MG tablet Indications: Iron deficiency anemia, unspecified iron deficiency anemia type Take 1 tablet (325 mg total) by mouth in the morning. 30 tablet 3 09/22/2024 Active Start: 01-06-2023 End: 04-03-2023 take 1 tablet by mouth in the morning ferrous sulfate 325 (65 FE) mg tablet Indications: Other iron deficiency anemia Take 1 tablet (325 mg total) by mouth in the morning. 30 tablet 3 01/06/2023 Active fludrocortisone acetate 0.1 mg oral tablet (18 sources) Start: 09-22-2024 End: 12-21-2024 take 1 tablet by mouth in the morning fludrocortisone (FLORINEF) 0.1 mg tablet Indications: POTS (postural orthostatic tachycardia syndrome) , Syncope, unspecified syncope type TAKE 1 TABLET BY MOUTH IN THE MORNING AND 1 TABLET BEFORE BEDTIME 180 tablet 1 10/16/2024 Active Start: 09-01-2024 End: 08-31-2024 take 1 tablet by mouth in the morning fludrocortisone (FLORINEF) 0.1 mg tablet Take 1 tablet (0.1 mg total) by mouth in the morning. 30 tablet 09/01/2024 08/31/2024 Discontinued Start: 08-31-2024 End: 08-31-2024 0.1 mg, oral, 2 times daily, First dose (after last modification) on Thu08/31/24 at 2100, Look-alike/sound-alike medication - verify indication for use. May alter blood glucose or insulin requirements. Start: 08-31-2024 End: 09-30-2024 take 1 tablet by mouth in the morning, then take 1 tablet by mouth at bedtime fludrocortisone (FLORINEF) 0.1 mg tablet Take 1 tablet (0.1 mg total) by mouth in the morning and 1 tablet (0.1 mg total) before bedtime. Do all this for 30 days. 30 tablet 08/31/2024 09/22/2024 Discontinued (Reorder) Start: 08-31-2024 End: 08-31-2024 0.1 mg, oral, Daily, First d ose (after last modification) on Thu08/31/24 at 0900, Look-alike/sound-alike medication - verify indication for use. May alter blood glucose or insulin requirements. Start: 08-30-2024 End: 08-30-2024 0.1 mg, oral, 2 times daily, First dose on Thu08/30/24 at 1230, Look-alike/sound-alike medication - verify indication for use. May alter blood glucose or insulin requirements. hydrOXYzine hydrochloride 10 mg oral tablet (17 sources) Antihistamine Start: 10-24-2024 take 1 tablet by mouth three times daily as needed hydrOXYzine (ATARAX) 10 mg tablet Indications: MARTY (generalized anxiety disorder) Take 1 tablet (10 mg total) by mouth 3 (three) times a day as needed for itching. 30 tablet 10/24/2024 Active Start: 03-05-2023 End: 04-03-2023 take 1 capsule by mouth twice daily as needed hydrOXYzine (VistariL) 25 mg capsule Take 1 capsule (25 mg total) by mouth 2 (two) times a day as needed for itching. 30 capsule 0 03/05/2023 04/03/2023 Discontinued (Stop Taking at Discharge) ibuprofen 600 mg oral tablet (20 sources) [...] as needed for Pain Active Ibuprofen Active Knee Immobilizer unit (2 sources) Start: 07-23-2024 Knee Immobiliz er unit Active 0 .Route July 23, 2024 12:00am As directed magnesium oxide 400 mg oral tablet (20 sources) Start: 12-22-2022 take 1 tablet by mouth in the morning magnesium oxide (MAGOX) 400 mg tablet Take 1 tablet (400 mg total) by mouth in the morning. 30 tablet 2 12/22/2022 Active metoprolol tartrate 25 mg oral tablet (19 sources) beta-Adrenergic January Start: 08-31-2024 End: 01-10-2025 take 0.5 tablet by mouth in the morning, then take 0.5 tablet by mouth at bedtime metoprolol tartrate (LOPRESSOR) 25 mg tablet Indications: POTS (postural orthostatic tachycardia syndrome) Take 0.5 tablets (12.5 mg total) by mouth in the morning and 0.5 tablets (12.5 mg total) before bedtime. Do all this for 90 days. 30 tablet 2 10/12/2024 01/10/2025 Active Start: 08-31-2024 End: 08-31-2024 take 12.5 mg by mouth twice daily 12.5 mg, oral, 2 times daily, First dose on Thu08/31/24 at 1100, Look-alike/sound-alike medication - verify indication for use. Start: 09-18-2023 End: 12-02-2023 take 1 tablet by mouth every twenty-four hours in the morning metoprolol succinate XL (TOPROL XL) 25 m g 24 hr tablet Take 1 tablet (25 mg total) by mouth in the morning. 30 tablet 11 09/18/2023 12/02/2023 Discontinued (Patient Stopped On Own) Start: 08-28-2023 End: 09-18-2023 take 0.5 tablet by mouth every twenty-four hours in the morning metoprolol succinate XL (TOPROL XL) 25 m g 24 hr tablet Take 0.5 tablets (12.5 mg total) by mouth in the morning. 30 tablet 11 08/28/2023 09/18/2023 Discontinued midodrine hydrochloride 5 mg oral tablet (20 sources) alpha-Adrenergic Agonist Start: 08-30-2024 End: 10-18-2024 take 1 tablet by mouth three times daily midodrine (PROAMATINE) 5 mg tablet Indications: POTS (postural orthostatic tachycardia syndrome) , Syncope, unspecified syncope type TAKE 1 TABLET BY MOUTH THREE TIMES A DAY 270 tablet 1 10/18/2024 Active Start: 07-15-2024 End: 08-31-2024 take 2.5 mg by mouth twice daily 2.5 mg, oral, 2 times daily, First dose on Thu08/29/24 at 2100, Look-alike/sound-alike medication - verify indication for use. naproxen 375 mg oral tablet (3 sources) Nonsteroidal Anti-inflammatory Drug Start: 07-26-2024 End: 08-02-2024 take 1 tablet by mouth in the morning naproxen (Naprosyn) 375 MG tablet Take 375 mg by mouth in the morning and 375 mg in the evening. Take with meals. 07/26/2024 08/02/2024 Active NONFORMULARY (3 sources) NONFORMULARY Ora l BC daily Active NONFORMULARY Ora l BC daily 0 Active ofloxacin 3 mg/ml ophthalmic solution (1 source) Quinolone Antimicrobial Start: 09-08-2022 Ofloxacin 0.3 % 10 drops into affected ear Otic Once a day for 7 days Aug, Active vit 10-gjyn-uhhws-dha 18-1-350 mg capsule (20 sources) Start: 08-14-2022 take 1 tablet by mouth in the morning vit 61-wanx-ytmqa-dha 18-1-350 mg capsule Indications: , prevent neural tube defect Take 1 tablet by mouth in the morning. Indications: , prevention of neural tube defect when . 90 capsule 4 08/14/2022 Start: 08-14-2022 take 1 tablet by candida th in the morning vit 45-pxml-xptlw-dha 18-1-350 mg capsule Indications: , prevent neural tube defect Take 1 tablet by mouth in the morning. Indications: , prevention of neural tube defect when . 90 capsule 4 08/14/2022 Suspended Start: 08-14-2022 take 1 tablet by candida th in the morning vit 42-gnrr-swtrf-dha 18-1-350 mg capsule Indications: , prevent neural tube defect Take 1 tablet by mouth in the morning. Indications: , prevention of neural tube defect when . 90 capsule 4 08/14/2022 Active Vitamins 28-0.8 MG (1 source) take 1 tablet by mouth once daily Vitamins 28-0.8 MG 1 tablet Orally Once a day Active semaglutide, weight loss, (WEGOVY) 0.25 mg/0.5 mL pen injector (1 source) Start: semaglutide, weight loss, (WEGOVY) 0.25 mg/0.5 mL pen injector Indications: Prediabetes , Insulin resistance , Cardiovascular risk factor , Metabolic syndrome , Family history of heart disease , Family history of diabetes mellitus Inject 0.5 mL (0.25 mg total) under the skin every 7 days. 2 mL 2 10/24/2024 Active sertraline 25 mg oral tablet (20 sources) Serotonin Reuptake Inhibitor Start: take 1 tablet by mouth in the morning sertraline (ZOLOFT) 25 mg tablet Indications: MARTY (generalized anxiety disorder) Take 1 tablet (25 mg total) by mouth in the morning. 30 tablet 2 10/24/2024 Active Start: 03-05-2023 End: 04-03-2023 take 1 tablet [...] Class(es) Dates Sig (Normalized) Sig (Original) acetaminophen 325 mg oral tablet (11 sources) Start: 08-29-2024 End: 08-31-2024 take 1 tablet by mouth every six hours as needed for pain and headache and fever Start: 06-30-2023 take 2 tablets by mo uth every [...] 6 hours as needed for Pain Active aspirin 81 mg delayed release oral tablet [...] As needed, pain, perineum discomfort, Starting on Thu04/02/23 at 0111, , May keep at bedside benzonatate 100 mg oral capsule (10 sources) Non-narcotic Antitussive Start: 02-17-2024 End: 09-22-2024 take 1 capsule by mouth every eight hours benzonatate (TESSALON PERLES) 100 mg capsule Take 1 capsule (100 mg total) by mouth every 8 (eight) hours. 21 capsule 02/17/2024 09/22/2024 Discontinued (Therapy completed) bisacodyl 10 mg rectal suppository (1 source) Stimulant Laxative Start: 04-02-2023 End: 04-03-2023 10 mg, rectal, Once as needed, constipation, no relief from docusate or senna/docusate, Starting on Sammie 04/02/23 at 0111, For 1 dose, , Start 2nd day Look-alike/sound- alike medication - verify indication for use. calcium chloride 0.0014 meq/ml / potassium chloride 0.004 meq/ml / sodium chloride 0.103 meq/ml / sodium lactate 0.028 meq/ml injectable solution (7 sources) Start: 08-29-2024 End: 08-29-2024 1,000 mL, intravenous, at 984 mL/hr, Administer over 61 Minutes, Once, On Thu08/29/24 at 1035, For 1 dose Start: 04-02-2023 End: 04-03-2023 take 999 mL intravenously every hour as needed 999 mL/hr, intravenous, Continuous PRN, hemorrhage treatment, Starting on Sammie 04/02/23 at 0111, , Per infusion pump. For hemorrhage treatment, administer as directed by provider Start: 04-01-2023 End: 04-01-2023 lactated ringers bolus Start: 03-31-2023 End: 04-03-2023 lactated ringers infusion 100 ml calcium gluconate 20 mg/ml injection (1 source) Start: 08-29-2024 End: 08-31-2024 calcium gluconate 3,000 mg in sodium chloride 0.9 % 100 mL IVPB (1 source) Start: 08-29-2024 End: 08-31-2024 calcium gluconate 4,000 mg in sodium chloride 0.9 % 250 mL IVPB (1 source) Start: 08-29-2024 End: 08-31-2024 1 ml carboprost 0.25 mg/ml injection (1 source) Prostaglandin Analog Start: 03-31-2023 End: 04-03-2023 carboprost (HEMABATE) injection 250 mcg 1 ml dexamethasone phosphate 4 mg/ml injection (1 source) Corticosteroid Start: 08-30-2024 End: 08-31-2024 4 mg, intravenous, Every 12 hours scheduled, First dose on Thu08/30/24 at 1200, May alter blood glucose or insulin requirements. Look-alike/yoana nd-alike medication - verify indication for use. 0.4 ml enoxaparin sodium 100 mg/ml prefilled syringe (1 source) Low Molecular Weight Heparin Start: 08-29-2024 End: 08-31-2024 inject 40 mg by subcutaneous injection once daily 40 mg, subcutaneous, Daily, First dose on Thu08/29/24 at 1715, Look-alike/yoana nd-alike medication - verify indication for use. glucagon (rdna) 1 mg injection (1 source) Antihypoglycemic Agent Start: 08-29-2024 End: 08-31-2024 150 ml glucose 50 mg/ml injection (3 sources) Start: 08-29-2024 End: 08-31-2024 Start: 08-29-2024 End: 08-31-2024 Start: 08-29-2024 End: 08-31-2024 1000 ml glucose 50 mg/ml / sodium chloride 9 mg/ml injection (1 source) Start: 08-29-2024 End: 08-29-2024 1,000 mL, intravenous, at 1,000 mL/hr, Administer over 1 Hours, Once, On Thu08/29/24 at 1300, For 1 dose hydrocortisone 25 mg/ml topical cream (1 source) Corticosteroid Start: 04-02-2023 End: 04-03-2023 1 Application, rectal, As needed, hemorrhoids, Starting on Thu04/02/23 at 0111, , May keep at bedside, Indications: hemorrhoids Iron (5 sources) Iron Not-Taking Iron Active ivabradine 5 mg oral tablet (19 sources) Hyperpolarization-activated Cyclic Nucleotide-gated Channel January Start: 12-29-2023 End: 10-12-2024 take 1 tablet by mouth in the morning, then take 1 tablet by mouth at bedtime ivabradine (CORLANOR) 5 mg tablet tablet Indications: POTS (postural orthostatic tachycardia syndrome) Take 1 tablet (5 mg total) by mouth in the morning and 1 tablet (5 mg total) before bedtime. 90 tablet 3 12/29/2023 10/12/2024 Discontinued (Discontinued by another clinician) lanolin 1000 mg/ml topical cream (1 source) Start: 04-02-2023 End: 04-03-2023 1 Application, topical, As needed, sore/cracked nipples, Starting on Thu04/02/23 at 0111, , May keep at bedside levonorgestrel 0.811141 mg/hr intrauterine system (5 sources) Progestin, Progestin-containing Intrauterine Device Start: 07-19-2024 End: 07-19-2024 levonorgestreL (MIRENA) 21 mcg/24hr (up to 8 yrs) 52 mg IUD 1 each Start: 07-19-2024 End: 07-19-2024 1 each (52 mg), intrauterine , Once, On Thu07/19/24 at 1415, For 1 dose, Has patient consent been obtained? Yes, Indication: Prevention of Unintended Kyleena Marlin-Warner nicol Kyleena Active 50 ml magnesium sulfate 40 m g/ml injection (2 sources) Start: 08-29-2024 End: 08-31-2024 Start: 08-29-2024 End: 08-31-2024 24 hr metFORMIN hydrochloride 500 mg extended release oral tablet (5 sources) Biguanide Start: 09-26-2024 End: 10-12-2024 take 1 tablet by mouth once daily at breakfast metFORMIN XR (GLUCOPHAGE XR) 500 mg 24 hr tablet Indications: Insulin resistance Take 1 tablet (500 mg total) by mouth daily with breakfast. 30 tablet 09/26/2024 10/12/2024 Discontinued (Discontinued by another clinician) 1 ml methylergonovine maleate 0.2 mg/ml injection (2 sources) Ergot Derivative Start: 04-01-2023 End: 04-01-2023 200 mcg, intramuscular, Once as needed, hemorrhage management, Starting on Thu04/01/23 at 2323, For 1 dose, , Administer as directed by the provider for hemorrhage treatment. DO NOT ADMINISTER IV. Contraindicated if patient has a sensitivity or Systolic BP greater than 140 or Diastolic BP greater than 90. Look-alike/sound-ali ke medication - verify indication for use. Start: [...] End: 04-03-2023 miSOPROStoL (CYTOTEC) tablet 1,000 mcg 2 ml ondansetron 2 mg/ml injection (20 sources) Serotonin-3 Receptor Antagonist Start: 08-29-2024 End: 08-31-2024 take 4 mg intravenously every six hours as needed for nausea and vomiting 4 mg, intravenous, Every 6 hours PRN, nausea, vomiting, Starting on Thu08/29/24 at 1704, Intravenous administration preferred to be given over 2-5 minutes. Start: 08-29-2024 End: 08-29-2024 4 mg, intravenous, Once, On Thu08/29/24 at 1035, For 1 dose, Intravenous administration preferred to be given over 2-5 minutes. Start: 06-28-2024 End: 06-28-2024 4 mg, IntraVENous, ONCE, 1 d ose, On Thu06/28/24 at 1500 Start: 04-11-2024 End: 09-22-2024 ondansetron ODT (ZOFRAN ODT) 4 mg disintegrating tablet Indications: Nausea and vomiting in Dissolve 1 tablet (4 mg total) on tongue every 8 (eight) hours as needed for nausea. 30 tablet 06/29/2024 09/22/2024 Discontinued (Therapy completed) Start: 07-07-2023 take 1 tablet by candida [...] 1 tablet Orally tid prn Jan, Active 1 ml oxytocin 10 unt/ml injection (2 [...] in lactated ringers (0.06 units/mL premix) PNV,calcium 05-pkpo-alwsu acid ( PLUS) 27 mg iron- 1 mg tablet 1 tablet (1 source) Start: 04-02-2023 End: 04-03-2023 take 1 tablet by mouth once daily 1 tablet, oral, Daily, First dose on Thu04/02/23 at 0900, polyethylene glycol 3350 00797 mg powder for oral solution (1 source) Osmotic Laxative Start: 04-02-2023 End: 04-03-2023 17 g, oral, Daily, First dose on Thu04/02/23 at 0900, , Look-alike/sound-al andrade medication - verify indication for use. Dissolve 1 packet (17 gm) in 8 ounces of water, juice, soda, coffee or tea. Potassium Chloride (1 source) Start: 08-29-2024 End: 08-31-2024 potassium chloride (K-TAB,KLOR-CON) CR tablet 30-50 mEq vit no.394-wcma-nbieb acid ( VITAMIN) 27 mg iron- 800 mcg tablet (8 sources) Start: 06-29-2024 End: 09-22-2024 take 1 tablet by mouth in the morning vit no.804-yhhr-xmbzy acid ( VITAMIN) 27 mg iron- 800 mcg tablet Indications: Positive test Take 1 tablet by mouth in the morning. 30 tablet 12 06/29/2024 09/22/2024 Discontinued (Therapy completed) Start: 06-29-2024 take 1 tablet by candida th in the morning vit no.254-uyqd-vkfln acid ( VITAMIN) 27 mg iron- 800 mcg tablet Indications: Positive test Take 1 tablet by mouth in the morning. 30 tablet 12 06/29/2024 Start: 06-29-2024 take 1 tablet by candida th in the morning vit no.176-awmw-cqbni acid ( VITAMIN) 27 mg iron- 800 mcg tablet Indications: Positive test Take 1 tablet by mouth in the morning. 30 tablet 12 06/29/2024 Active 125 ml sodium chloride 9 mg/ml prefilled syringe (11 sources) Start: 08-29-2024 End: 08-31-2024 take 125 mL intravenously every hour 125 mL/hr, intravenous, Continuous, Starting on Thu08/30/24 at 1200, For 2 days Start: 08-29-2024 End: 08-31-2024 Start: 08-29-2024 End: 08-31-2024 Start: 06-28-2024 End: 06-28-2024 1,000 mL (9.59 [...] Every 8 hours, First dose on Sammie 2/1/24 at 0115, , Flush peripheral line per protocol sodium phosphate 20 mmol in sodium chloride 0.9 % 250 mL IVPB (1 source) Start: 08-29-2024 End: 08-31-2024 sodium phosphate 20 mmol in sodium chloride 0.9 % 250 mL IVPB 10 ml tranexamic acid 100 mg/ml injection (2 sources) Antifibrinolytic Agent Start: 04-02-2023 End: 04-03-2023 take 1 dose intravenously once 1,000 mg, intravenous, Administer over 10 Minutes, As needed, hemostasis/post hemorrhage management, Starting on Sammie 04/02/23 at 0111, For 2 doses, , As directed by the provider for hemostasis/post hemorrhage management. Give slow IV push over [...] Classification Problem Date Documented Da te Episodic/Chronic Anxiety disorders (12 sources) Anxiety; Translations: [Anxiety disorder, unspecified] Onset: 09-22-2024 09-22-2024 Chronic Blindness and vision defects (6 sources) Visual alteration; Translations: [Unspecified visual loss] Onset: 10-29-2021 Resolved: 10-29-2021 Chronic Cardiac dysrhythmias (20 sources) Inappropriate sinus tachycardia; Translations: [Inappropriate sinus tachycardia] Onset: 12-25-2022 12-25-2022 Chronic Deficiency and other anemia (1 source) Iron deficiency anemia; Translations: [Iron deficiency anemia, unspecified] 09-22-2024 Episodic Deficiency and other anemia (1 source) Iron deficiency anemia, unspecified; Translations: [Iron deficiency anemia, unspecified] Onset: 09-22-2024 Episodic Diabetes mellitus without complication (20 sources) Abnormal glucose tolerance test; Translations: [Other abnormal glucose] Onset: 01-06-2023 Resolved: 06-12-2023 06-12-2023 Episodic E Codes: Fall (1 source) Fall Onset: 04-13-2024 Epilepsy; convulsions (1 source) Unspecified convulsions Episodic Headache; including migraine (20 sources) New daily persistent headache; Translations: [New daily persistent headache (NDPH)] Onset: 10-29-2021 Resolved: 10-29-2021 Chronic Headache; including migraine (1 source) Headache; Translations: [Nonintractable headache, unspecified chronicity pattern, unspecified headache type] Episodic Joint disorders and dislocations; trauma-related (2 sources) Dislocation of patellofemoral joint; Translations: [Unspecified dislocation of left patella, initial encounter] 07-28-2024 Episodic Menstrual disorders (4 sources) Amenorrhea; Translations: [Amenorrhea, unspecified] Onset: 06-29-2024 06-29-2024 Chronic Mood disorders (20 sources) Depressive disorder; Translations: [Depression] Onset: 03-18-2018 03-18-2018 Chronic Other circulatory disease (13 sources) Orthostatic hypotension; Translations: [Orthostatic hypotension] Onset: 08-30-2024 08-23-2023 Episodic Other circulatory disease (4 sources) Postural orthostatic tachycardia syndrome ; Translations: [Postural orthostatic tachycardia syndrome (POTS)] Onset: 06-29-2024 08-31-2024 Episodic Other complications of (1 source) Complication of , childbirth and/or the puerperium; Translations: [ related conditions, unspecified, first trimester] 06-28-2024 Episodic Other complications of (1 source) related conditions, unspecified, first trimester; Translations: [ related conditions, unspecified, first trimester] Onset: 06-28-2024 Episodic Other ear and sense organ disorders (1 source) Swimmer's ear, left ear Episodic Other endocrine disorders (1 source) Polycystic ovary syndrome; Translations: [Polycystic ovarian syndrome] 09-22-2024 Chronic Other endocrine disorders (2 sources) Polycystic ovarian syndrome; Translations: [Polycystic ovarian syndrome] Onset: 09-22-2024 Chronic Other female genital disorders (1 source) Vaginal [...] COORDINATION] Onset: 10-29-2021 Resolved: 10-29-2021 Episodic Other non-traumatic joint disorders (8 sources) Pain in left knee; Translations: [Pain in joint, lower leg] Onset: 07-23-2024 07-28-2024 Episodic Other non-traumatic joint disorders (1 source) Knee pain Onset: 07-26-2024 Episodic Other nutritional; endocrine; and metabolic disorders (20 sources) Obesity caused by energy imbalance; Translations: [Class 1 obesity due to excess calories in adult] Onset: 04-03-2018 04-03-2018 Chronic Other nutritional; endocrine; and metabolic disorders (12 sources) Severe obesity; Translations: [Class 3 severe obesity due to excess calories with body mass index (BMI) of 40.0 to 44.9 in adult ([facility])] Onset: 08-30-2024 08-30-2024 Chronic Other nutritional; endocrine; and metabolic disorders (4 sources) Insulin resistance; Translations: [Insulin resistance] 09-26-2024 Chronic Other nutritional; endocrine; and metabolic disorders (2 sources) Metabolic syndrome X; Translations: [Metabolic syndrome] 10-24-2024 Chronic Other nutritional; endocrine; and metabolic disorders (1 source) Metabolic syndrome; Translations: [Metabolic syndrome] Onset: 10-24-2024 Chronic Other screening for suspected conditions (not mental disorders or infectious disease) (4 sources) Encounter for screening for lipoid disorders; Translations: [Encounter for screening for cardiovascular disorders] Onset: 09-22-2024 Episodic Other upper respiratory disease (5 sources) Allergic rhinitis; Translations: [Allergic rhinitis, unspecified] Chronic Other upper respiratory infections (3 sources) Acute upper respiratory infection, unspecified; Translations: [Viral upper respiratory tract infection] Onset: 05-19-2021 Resolved: 05-19-2021 Episodic Residual codes; unclassified (3 sources) Memory impairment; [...] CARRIED OUT PT LEAVE] Onset: 10-30-2021 Episodic Residual codes; unclassified (20 sources) Family history of cardiac disorder; Translations: [Family history of ischemic heart disease and other diseases of the circulatory system] Onset: 10-21-2022 10-21-2022 Episodic Residual codes; unclassified (2 sources) Cardiovascular event risk; Translations: [Other specified personal risk factors, not elsewhere classified] 10-24-2024 Episodic Residual codes; unclassified (2 sources) Family history of diabetes mellitus; Translations: [Family history of diabetes mellitus] 10-24-2024 Episodic Residual codes; unclassified (1 source) Other specified personal risk factors, not elsewhere classified; Translations: [Other specified personal risk factors, not elsewhere classified] Onset: 10-24-2024 Episodic Spontaneous (2 sources) Miscarriage; Translations: [Complete or unspecified spontaneous without complication] Onset: 07-02-2024 07-02-2024 Episodic Syncope (20 sources) Syncope and collapse; Translations: [Syncope symptom] Onset: 10-29-2021 Resolved: 10-29-2021 Episodic Unclassified (1 source) Inappropriate sinus tachycardia, so stated; Translations: [Inappropriate sinus tachycardia, so stated] Onset: 12-25-2022 Unclassified (1 source) Procedure Onset: 07-19-2024 Unclassified (1 source) ob problem Onset: 06-29-2024 Unclassified (1 source) Letter for School/Work Onset: 08-29-2024 Unclassified (1 source) Animal Bite Onset: 06-14-2024 Unclassified (1 source) Insulin resistance, unspecified; Translations: [Insulin resistance, unspecified] Onset: 10-24-2024 Unclassified (1 source) New Patient Onset: 09-22-2024 Past or Other Problems Problem Classification Problem Date Documented Date Episodic/Chronic Abdominal pain (3 sources) Right upper quadrant pain; Translations: [Right upper quadrant pain] Onset: 06-29-2024 06-29-2024 Episodic Cardiac dysrhythmias (20 sources) Palpitations; Translations: [Palpitations] Onset: 10-21-2022 11-19-2022 Episodic Chronic obstructive pulmonary disease and bronchiectasis (1 source) Bronchitis, not specified as acute or chronic; Translations: [Bronchitis, not specified as acute or chronic] Onset: 02-17-2024 Episodic Conditions associated with dizziness or vertigo (3 sources) Dizziness; Translations: [Dizziness and giddiness] Onset: 06-27-2024 Episodic Contraceptive and procreative management (16 sources) Patient encounter status; Translations: [Encounter for other general counseling and advice on contraception] Onset: 07-19-2024 05-08-2023 Episodic E Codes: Natural/environment (17 sources) Dog bite - wound; Translations: [Bitten by dog, initial encounter] Onset: 06-14-2024 06-14-2024 Episodic Early or threatened labor (1 source) [...] sources) Mood disorders; Translations: [Depression, unspecified] Onset: 09-18-2022 Resolved: 10-24-2024 09-18-2022 Nausea and vomiting (4 sources) Nausea; Translations: [Nausea with vomiting, unspecified] Onset: 02-20-2021 Resolved: 10-29-2021 Episodic Nonspecific chest pain (3 sources) Chest pain, unspecified; Translations: [Chest pain] Onset: 12-07-2023 Episodic Other circulatory disease (1 source) Idiopathic hypotension Onset: 10-29-2021 Resolved: 10-29-2021 Episodic Other circulatory disease (1 source) Orthostatic hypotension; Translations: [Orthostatic hypotension] Onset: 08-23-2023 Episodic Other complications of (20 sources) Anemia of ; Translations: [Anemia complicating , third trimester] Onset: 08-14-2022 Resolved: 10-24-2024 01-06-2023 Chronic Other complications of (20 sources) Maternal obesity complicating , childbirth and the puerperium, antepartum; Translations: [Obesity complicating , unspecified trimester] Onset: 08-14-2022 Resolved: 05-08-2023 05-08-2023 Chronic Other complications of (20 sources) Vomiting of , unspecified; Translations: [Unspecified vomiting of , unspecified as to episode of care or not applicable] Onset: 08-14-2022 Resolved: 03-25-2023 03-25-2023 Episodic Other complications of (20 sources) Uterine size [...] of breath] Onset: 11-14-2022 11-14-2022 Episodic Other and delivery including normal (20 sources) Finding of ; Translations: [Encounter for care and examination of lactating mother] Onset: 08-14-2022 Resolved: 06-29-2024 04-03-2023 Episodic Other upper respiratory disease (1 source) Nasal congestion Onset: 02-17-2024 Episodic Polyhydramnios and other problems of amniotic cavity (20 sources) Amniotic fluid leaking; Translations: [Premature rupture of membranes, unspecified as to length of time between rupture and onset of labor, unspecified weeks of gestation] Onset: 12-29-2022 Resolved: 05-08-2023 02-11-2023 Episodic Residual codes; unclassified (20 sources) Genetic carrier of other disease; 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] Onset: 01-09-2023 01-09-2023 Episodic Residual codes; unclassified (1 source) Gestation period, 35 weeks; Translations: [35 weeks gestation of ] 03-05-2023 Episodic Residual codes; unclassified (1 source) Gestation period, 36 weeks; Translations: [36 weeks gestation of ] 03-12-2023 Episodic Residual codes; unclassified (1 source) Family history of ischemic heart disease and other diseases of the circulatory system; Translations: [Family history of ischemic heart disease and other diseases of the circulatory system] Onset: 10-21-2022 Episodic Screening and history of mental health and substance abuse codes (1 source) H/O: depression; Translations: [Personal history of other mental and behavioral disorders] 06-12-2023 Episodic Unclassified (10 sources) Onset: 09-22-2024 Resolved: 10-24-2024 09-22-2024 NEGATED: Highlighted row has been ruled out!Unclassified (1 source) No known active problems 08-23-2023 Results Test Name Value Interpretation Reference Range Facility INSULINon 09-26-2024 INSULIN 33.80 uIU/mL High 1.00-23.00 [facility] Comment on above: Order Comment: Ref. range is for FASTING NON-DIABETIC POPULATION. Performed By: #### C BCA, CMP, THYR, , 25915-6, 06200-1 #### [facility] ([id number]) [address] [place] [address] 81898 LIPID PROFILEon 09-26-2024 Cholesterol [Mass/Vol] 99 mg/dL Low 150-200 Pr [facility] Comment on above: Performed By: #### C BCA, CMP, THYR, , 47926-0, 41668-4 #### [facility] ([id number]) [address] [place] [address] 59792 Cholesterol in HDL [Mass/Vol] 43 mg/dL Normal >39 [facility] Comment on above: Result Comment: HDL <40 mg/dL - High Risk HDL > or = 40mg/dL- Desirable HDL >60 mg/dL - Negative Risk Performed By: #### C BCA, CMP, THYR, , 93943-4, 82316-6 #### [facility] ([id number]) [address] [place] [address] 60185 Cholesterol in LDL [Mass/Vol] 42 mg/dL Normal <130 [facility] Comment on above: Result Comment: LDL <100 mg/dL - Desirable LDL >160 mg/dL - High Risk Performed By: #### C BCA, CMP, THYR, , 31035-6, 41049-6 #### [facility] ([id number]) [address] [place] [address] 25900 CHOLESTEROL:HDL 2.3 Normal 1.0-5.0 [facility] Comment on above: Performed By: #### C BCA, CMP, THYR, , 88493-9, 97244-5 #### [facility] ([id number]) [address] [place] [address] 55220 Triglyceride [Mass/Vol] 68 mg/dL Normal 27-150 P [facility] Comment on above: Performed By: #### C BCA, CMP, THYR, 20709-1, 83178-6, 98290-8 #### [facility] ([id number]) [address] [place] [address] 87567 VERY LOW LIPOPROTEIN 14 mg/dL Normal 0-30 [facility] Comment on above: Performed By: #### C BCA, CMP, THYR, 21339-0, 22898-5, 89396-8 #### [facility] ([id number]) [address] [place] [address] 39609 CBC WITH AUTO DIFFERENTIALon 08-31-2024 BASOPHILS ABSOLUTE COUNT (10*3/UL) BY AUTOMATED COUNT 0.1 10*3/uL Normal 0.0-0.2 [facility] Comment on above: Performed By: #### C BCA, CMP, THYR, 34964-2, 87427-8, 57098-4 #### [facility] ([id number]) [address] [place] [address] 00730 BASOPHILS RELATIVE PERCENT BY AUTOMATED COUNT 0.5 % Normal [facility] Comment on above: Performed By: #### C BCA, CMP, THYR, 45479-1, 52233-9, 58558-8 #### [facility] ([id number]) [address] [place] [address] 28206 CELLAVISION DIFFERENTIAL TYPE AUTOMATED DIFFERENTIAL Normal [facility] Comment on above: Performed By: #### C BCA, CMP, THYR, 05824-5, 21552-0, 48469-8 #### [facility] ([id number]) [address] [place] [address] 68011 Eosinophils (Bld) [#/Vol] 0.0 10*3/uL Normal 0.0-0.4 [facility] Comment on above: Performed By: #### C BCA, CMP, THYR, 69784-6, 25334-9, 83670-3 #### [facility] ([id number]) [address] [place] [address] 54760 EOSINOPHILS RELATIVE PERCENT BY AUTOMATED COUNT 0.0 % Normal [facility] Comment on above: Performed By: #### C BCA, CMP, THYR, 07430-7, 20658-1, 86802-9 #### [facility] ([id number]) [address] [place] [address] 03657 Erythrocyte distribution width (RBC) [Ratio] 15.0 % Normal 11.5-15 [facility] Comment on above: Performed By: #### C BCA, CMP, THYR, 00068-0, 96175-7, 04462-4 #### [facility] ([id number]) [address] [place] [address] 40891 Hematocrit (Bld) [Volume fraction] 34.3 % Low 35-47 [facility] Comment on above: Performed By: #### C BCA, CMP, THYR, 03859-1, 05876-4, 36143-4 #### [facility] ([id number]) [address] [place] [address] 68608 Hemoglobin (Bld) [Mass/Vol] 11.5 g/dL Low 11.7-15. 5 [facility] Comment on above: Performed By: #### C BCA, CMP, THYR, 10023-9, 57636-9, 42415-6 #### [facility] ([id number]) [address] [place] [address] 82672 LYMPHOCYTES ABSOLUTE COUNT (10*3/UL) BY AUTOMATED COUNT 0.9 10*3/uL Low 1.0-3.5 [facility] Comment on above: Performed By: #### C BCA, CMP, THYR, 64915-6, 84201-5, 26753-9 #### [facility] ([id number]) [address] [place] [address] 05011 LYMPHOCYTES RELATIVE PERCENT BY AUTOMATED COUNT 6.4 % Normal [facility] Comment on above: Performed By: #### C BCA, CMP, THYR, , 13454-0, 38199-0 #### [facility] ([id number]) [address] [place] [address] 48475 MCH (RBC) [Entitic mass] 25.8 pg Low 27-34 [facility] Comment on above: Performed By: #### C BCA, CMP, THYR, , 49063-9, 36114-0 #### [facility] ([id number]) [address] [place] [address] 13057 MCHC (RBC) [Mass/Vol] 33.5 g/dL Normal 32-36 [facility] Comment on above: Performed By: #### C BCA, CMP, THYR, , 40046-6, 71670-7 #### [facility] ([id number]) [address] [place] [address] 90423 MCV (RBC) [Entitic vol] 77 fL Low 80-100 P [facility] Comment on above: Performed By: #### C BCA, CMP, THYR, , 12130-3, 99986-8 #### [facility] ([id number]) [address] [place] [address] 84600 MONOCYTES ABSOLUTE COUNT (10*3/UL) BY AUTOMATED COUNT 0.2 10*3/uL Normal 0.0-0.9 [facility] Comment on above: Performed By: #### C BCA, CMP, THYR, , 92041-3, 59166-9 #### [facility] ([id number]) [address] [place] [address] 77122 MONOCYTES RELATIVE PERCENT BY AUTOMATED COUNT 1.6 % Normal [facility] Comment on above: Performed By: #### C BCA, CMP, THYR, 80164-7, 67905-4, 08475-0 #### [facility] ([id number]) [address] [place] [address] 90008 NEUTROPHILS ABSOLUTE COUNT BY AUTOMATED COUNT 12.6 10*3/uL High 1.5-6.6 [facility] Comment on above: Performed By: #### C BCA, CMP, THYR, 78170-6, 98305-0, 55934-9 #### [facility] ([id number]) [address] [place] [address] 35547 NEUTROPHILS RELATIVE PERCENT BY AUTOMATED COUNT 91.5 % Normal [facility] Comment on above: Performed By: #### C BCA, CMP, THYR, 72137-4, 57338-4, 83153-6 #### [facility] ([id number]) [address] [place] [address] 77194 Platelet mean volume (Bld) [Entitic vol] 10.0 fL Normal 7-12 [facility] Comment on above: Performed By: #### C BCA, CMP, THYR, 12995-3, 42248-5, 93855-4 #### [facility] ([id number]) [address] [place] [address] 89947 Platelets (Bld) [#/Vol] 283 10*3/uL Normal 150-450 [facility] Comment on above: Performed By: #### C BCA, CMP, THYR, 11952-3, 14624-2, 23628-8 #### [facility] ([id number]) [address] [place] [address] 00907 RBC COUNT 4.45 X10E12/L Normal 3.8-5.2 [facility] Comment on above: Performed By: #### C BCA, CMP, THYR, 44214-5, 08446-6, 45905-1 #### [facility] ([id number]) [address] [place] [address] WBC (Bld) [#/Vol] 13.8 10*3/uL High 4-11 [facility] Comment on above: Performed By: #### C BCA, CMP, THYR, 88461-9, 66649-8, 51165-6 #### [facility] ([id number]) [address] [place] [address] CBC auto differentialon 07-0 Basophils (Bld) [#/Vol] 0.1 10*3/uL 0.0 - 0.2 10*3/uL [facility] Basophils/100 WBC (Bld) 0.5 % [facility] Differential cell count method Nom (Bld) AUTOMATED DIFFERENTIAL [facility] Eosinophils (Bld) [#/Vol] 0 10*3/uL 0. 0 - 0.4 10*3/uL [facility] Eosinophils/100 WBC (Bld) 0 % [facility] Erythrocyte distribution width (RBC) [Ratio] 15 % 11.5 - 15 % [facility] Hematocrit (Bld) [Volume fraction] 34.3 % Low 35 - 47 % [facility] Hemoglobin (Bld) [Mass/Vol] 11.5 g/dL Low 11.7 - 15.5 g/dL [facility] Interpretation and review of laboratory results Abnormal [facility] Lymphocytes (Bld) [#/Vol] 0.9 10*3/uL Low 1. 0 - 3.5 10*3/uL [facility] Lymphocytes/100 WBC (Bld) 6.4 % [facility] MCH (RBC) [Entitic mass] 25.8 pg Low 27 - 34 pg [facility] MCHC (RBC) [Mass/Vol] 33.5 g/dL 32 - 3 6 g/dL [facility] MCV (RBC) [Entitic vol] 77 fL Low 80 - 100 fL [facility] Monocytes (Bld) [#/Vol] 0.2 10*3/uL 0.0 - 0.9 10*3/uL [facility] Monocytes/100 WBC (Bld) 1.6 % [facility] Neutrophils (Bld) [#/Vol] 12.6 10*3/uL High 1. 5 - 6.6 10*3/uL [facility] Neutrophils/100 WBC (Bld) 91.5 % [facility] Platelet mean volume (Bld) [Entitic vol] 10 fL 7 - 12 fL [facility] Platelets (Bld) [#/Vol] 283 10*3/uL [facility] RBC (Bld) [#/Vol] 4.45 10*6/uL [facility] WBC LM Ql (Sput) 13.8 High [facility] COMPREHENSIVE METABOLIC PANE Grupo 08-31-2024 Albumin [Mass/Vol] 3.7 g/dL Normal 3.2-5.3 [facility] Comment on above: Performed By: #### C BCA, CMP, THYR, 80111-3, 11340-8, 48004-7 #### [facility] ([id number]) [address] [place] [address] 63045 ALP [Catalytic activity/Vol] 87 U/L Normal 39-130 [facility] Comment on above: Performed By: #### C BCA, CMP, THYR, 52542-6, 81013-4, 21543-1 #### [facility] ([id number]) [address] [place] [address] 37489 ALT [Catalytic activity/Vol] 15 U/L Normal <=31 [facility] Comment on above: Performed By: #### C BCA, CMP, THYR, 62917-9, 19695-9, 28666-2 #### [facility] ([id number]) [address] [place] [address] 57761 Anion gap [Moles/Vol] 10 mmol/L Normal 5-15 [facility] Comment on above: Performed By: #### C BCA, CMP, THYR, 26838-0, 74363-0, 45510-4 #### [facility] ([id number]) [address] [place] [address] 59390 AST [Catalytic activity/Vol] 17 U/L Normal <=41 [facility] Comment on above: Performed By: #### C BCA, CMP, THYR, 76974-4, 33479-9, 26755-4 #### [facility] ([id number]) [address] [place] [address] 29042 Bilirubin [Mass/Vol] 0.3 mg/dL Normal 0.3-1.2 [facility] Comment on above: Performed By: #### C BCA, CMP, THYR, 16297-5, 10612-1, 60136-7 #### [facility] ([id number]) [address] [place] [address] 74343 Calcium [Mass/Vol] 9.1 mg/dL Normal 8.5-10.5 [facility] Comment on above: Performed By: #### C BCA, CMP, THYR, 47410-4, 85109-5, 07477-8 #### [facility] ([id number]) [address] [place] [address] 50474 Chloride [Moles/Vol] 109 mmol/L Normal 98-109 [facility] Comment on above: Performed By: #### C BCA, CMP, THYR, 41929-9, 42610-1, 93349-6 #### [facility] ([id number]) [address] [place] [address] 22172 CO2 [Moles/Vol] 20 mmol/L Low 22-32 [facility] Comment on above: Performed By: #### C BCA, CMP, THYR, 28220-0, 44591-9, 99713-0 #### [facility] ([id number]) [address] [place] [address] 50337 Creatinine [Mass/Vol] 0.55 mg/dL Normal 0.40-1.00 [facility] Comment on above: Result Comment: METH OD TRACEABLE TO IDMS STANDARD Performed By: #### C BCA, CMP, THYR, 59329-0, 27341-0, 98781-7 #### [facility] ([id number]) [address] [place] [address] 48189 EGFR (CKD-EPI) NON-RACE DEPENDENT >^90 Normal >=60 [facility] Comment on above: Result Comment: eGFR not reported due to non-numeric value for Creatinine. Reported eGFR is based on the CKD-EPI 2021 equation that does not use a race coefficient. Performed By: #### C BCA, CMP, THYR, 65863-3, 20860-4, 91748-7 #### [facility] ([id number]) [address] [place] [address] 76357 Glucose [Mass/Vol] 197 mg/dL High 65-99 [facility] Comment on above: Performed By: #### C BCA, CMP, THYR, , 83384-2, 51942-7 #### [facility] ([id number]) [address] [place] [address] 59375 Potassium [Moles/Vol] 4.0 mmol/L Normal 3.5-5.0 [facility] Comment on above: Performed By: #### C BCA, CMP, THYR, , 30056-2, 58057-6 #### [facility] ([id number]) [address] [place] [address] 84576 Protein [Mass/Vol] 7.1 g/dL Normal 6.0-8.0 [facility] Comment on above: Performed By: #### C BCA, CMP, THYR, 16701-7, 04391-5, 34566-5 #### [facility] ([id number]) [address] [place] [address] 29013 Sodium [Moles/Vol] 139 mmol/L Normal 134-146 [facility] Comment on above: Performed By: #### C BCA, CMP, THYR, 85180-9, 32247-3, 40004-3 #### [facility] ([id number]) [address] [place] [address] 23097 Urea nitrogen [Mass/Vol] 9 mg/dL Normal 5-23 [facility] Comment on above: Performed By: #### C BCA, CMP, THYR, 43597-0, 26483-0, 84151-5 #### [facility] ([id number]) [address] [place] [address] 74087 Comprehensive metabolic pane grupo 08-31-2024 Albumin [Mass/Vol] 3.7 g/dL 3.2 - 5.3 g/dL [facility] ALP [Catalytic activity/Vol] 87 U/L 39 - 130 U/L [facility] ALT No additional P-5'-P [Catalytic activity/Vol] 15 U/L NINF - 31 U/L [facility] Anion gap [Moles/Vol] 10 mmol/L 5 - 15 mmol/L [facility] AST [Catalytic activity/Vol] 17 U/L NINF - 41 U/L [facility] Bilirubin [Mass/Vol] 0.3 mg/dL 0.3 - 1 .2 mg/dL [facility] Calcium [Mass/Vol] 9.1 mg/dL 8.5 - 10. 5 mg/dL [facility] Chloride [Moles/Vol] 109 mmol/L 98 - 10 9 mmol/L [facility] CO2 [Moles/Vol] 20 mmol/L Low 22 - 32 mmol/L [facility] Creatinine [Mass/Vol] 0.55 mg/dL 0.40 - 1.00 mg/dL [facility] Comment on above: METHOD TRACEABLE TO IDMS STANDARD EGFR Non-Race Dependent - PINF [facility] Comment on above: eGFR not reported du e to non-numeric value for Creatinine. Reported eGFR is based on the CKD-EPI 202 equation that does not use a race coefficient. Glucose [Mass/Vol] 197 mg/dL High 65 - 99 mg/dL [facility] Interpretation and review of laboratory results Abnormal [facility] Potassium [Moles/Vol] 4 mmol/L 3.5 - 5.0 mmol/L [facility] Protein [Mass/Vol] 7.1 g/dL 6.0 - 8.0 g/dL [facility] Sodium [Moles/Vol] 139 mmol/L 134 - 146 mmol/L [facility] Urea nitrogen [Mass/Vol] 9 mg/dL 5 - 23 mg/dL [facility] MAGNESIUMon 08-31-2024 Magnesium [Mass/Vol] 2.0 mg/dL Normal 1.8-2.6 [facility] Comment on above: Performed By: #### C BCA, CMP, THYR, 19352-4, 44090-2, 77331-8 #### [facility] ([id number]) [address] [place] [address] 74323 Magnesiumon 08-31-2024 Interpretation and review of laboratory results Normal [facility] Magnesium [Mass/Vol] 2 mg/dL 1.8 - 2 .6 mg/dL [facility] No Panel Informationon 08-31 Extra Tube Auto Resulted [facility] CBC WITH AUTO DIFFERENTIALon 08-30-2024 BASOPHILS ABSOLUTE COUNT (10*3/UL) BY AUTOMATED COUNT 0.1 10*3/uL Normal 0.0-0.2 [facility] Comment on above: Performed By: #### C BCA, CMP, THYR, 18693-6, 06588-0, 20489-7 #### [facility] ([id number]) [address] [place] [address] 81331 BASOPHILS RELATIVE PERCENT BY AUTOMATED COUNT 1.4 % Normal [facility] Comment on above: Performed By: #### C BCA, CMP, THYR, 84220-6, 73379-0, 35323-0 #### [facility] ([id number]) [address] [place] [address] 33083 CELLAVISION DIFFERENTIAL TYPE AUTOMATED DIFFERENTIAL Normal [facility] Comment on above: Performed By: #### C BCA, CMP, THYR, 89302-3, 89493-3, 54968-2 #### [facility] ([id number]) [address] [place] [address] 41513 Eosinophils (Bld) [#/Vol] 0.1 10*3/uL Normal 0.0-0.4 [facility] Comment on above: Performed By: #### C BCA, CMP, THYR, 88093-2, 41767-5, 13469-9 #### [facility] ([id number]) [address] [place] [address] 81502 EOSINOPHILS RELATIVE PERCENT BY AUTOMATED COUNT 2.0 % Normal [facility] Comment on above: Performed By: #### C BCA, CMP, THYR, 74286-8, 66819-2, 93135-2 #### [facility] ([id number]) [address] [place] [address] 27920 Erythrocyte distribution width (RBC) [Ratio] 15.2 % High 11.5-15 [facility] Comment on above: Performed By: #### C BCA, CMP, THYR, 94616-2, 13294-5, 50492-5 #### [facility] ([id number]) [address] [place] [id number] Hematocrit (Bld) [Volume fraction] 31.6 % Low 35-47 [facility] Comment on above: Performed By: #### C BCA, CMP, THYR, 51943-1, 91316-8, 67023-8 #### [facility] ([id number]) [address] [place] [address] 53687 Hemoglobin (Bld) [Mass/Vol] 10.6 g/dL Low 11.7-15. 5 [facility] Comment on above: Performed By: #### C BCA, CMP, THYR, 59215-3, 92839-1, 68516-6 #### [facility] ([id number]) [address] [place] [place] [address] 74260 LYMPHOCYTES ABSOLUTE COUNT (10*3/UL) BY AUTOMATED COUNT 2.3 10*3/uL Normal 1.0-3.5 [facility] Comment on above: Performed By: #### C BCA, CMP, THYR, , 00609-0, 60635-6 #### [facility] ([id number]) [address] [place] [address] 81093 LYMPHOCYTES RELATIVE PERCENT BY AUTOMATED COUNT 32.2 % Normal [facility] Comment on above: Performed By: #### C BCA, CMP, THYR, , 21163-7, 87452-6 #### [facility] ([id number]) [address] [place] [address] 53150 MCH (RBC) [Entitic mass] 26.2 pg Low 27-34 [facility] Comment on above: Performed By: #### C BCA, CMP, THYR, , 56154-4, 47504-9 #### [facility] ([id number]) [address] [place] [address] 51304 MCHC (RBC) [Mass/Vol] 33.6 g/dL Normal 32-36 [facility] Comment on above: Performed By: #### C BCA, CMP, THYR, , 76262-9, 08319-5 #### [facility] ([id number]) [address] [place] [address] 14162 MCV (RBC) [Entitic vol] 78 fL Low 80-100 P [facility] Comment on above: Performed By: #### C BCA, CMP, THYR, , 20271-6, 57207-6 #### [facility] ([id number]) [address] [place] [address] 68835 MONOCYTES ABSOLUTE COUNT (10*3/UL) BY AUTOMATED COUNT 0.5 10*3/uL Normal 0.0-0.9 [facility] Comment on above: Performed By: #### C BCA, CMP, THYR, 85281-5, 95547-1, 16499-3 #### [facility] ([id number]) [address] [place] [address] 57254 MONOCYTES RELATIVE PERCENT BY AUTOMATED COUNT 7.3 % Normal [facility] Comment on above: Performed By: #### C BCA, CMP, THYR, 95921-2, 67726-9, 00801-2 #### [facility] ([id number]) [address] [place] [address] 40970 NEUTROPHILS ABSOLUTE COUNT BY AUTOMATED COUNT 4.1 10*3/uL Normal 1.5-6.6 [facility] Comment on above: Performed By: #### C BCA, CMP, THYR, 59064-5, 41472-6, 17187-8 #### [facility] ([id number]) [address] [place] [address] 20837 NEUTROPHILS RELATIVE PERCENT BY AUTOMATED COUNT 57.1 % Normal [facility] Comment on above: Performed By: #### C BCA, CMP, THYR, 31526-3, 85209-9, 23715-2 #### [facility] ([id number]) [address] [place] [address] 76673 Platelet mean volume (Bld) [Entitic vol] 9.8 fL Normal 7-12 [facility] Comment on above: Performed By: #### C BCA, CMP, THYR, 85871-6, 48476-2, 83510-8 #### [facility] ([id number]) [address] [place] [address] 04855 Platelets (Bld) [#/Vol] 239 10*3/uL Normal 150-450 [facility] Comment on above: Performed By: #### C BCA, CMP, THYR, 96136-4, 92838-5, 73523-9 #### [facility] ([id number]) [address] [place] [address] 13755 RBC COUNT 4.05 X10E12/L Normal 3.8-5.2 [facility] Comment on above: Performed By: #### C BCA, CMP, THYR, 07128-2, 13747-3, 77936-4 #### [facility] ([id number]) [address] [place] [address] 81287 WBC (Bld) [#/Vol] 7.1 10*3/uL Normal 4-11 [facility] Comment on above: Performed By: #### C BCA, CMP, THYR, 19453-5, 03743-8, 81949-6 #### [facility] ([id number]) [address] [place] [address] 12539 CBC auto differentialon 07-0 -2024 Basophils (Bld) [#/Vol] 0.1 10*3/uL 0.0 - 0.2 10*3/uL [facility] Basophils/100 WBC (Bld) 1.4 % [facility] Differential cell count method Nom (Bld) AUTOMATED DIFFERENTIAL [facility] Eosinophils (Bld) [#/Vol] 0.1 10*3/uL 0. 0 - 0.4 10*3/uL [facility] Eosinophils/100 WBC (Bld) 2 % [facility] Erythrocyte distribution width (RBC) [Ratio] 15.2 % High 11.5 - 15 % [facility] Hematocrit (Bld) [Volume fraction] 31.6 % Low 35 - 47 % [facility] Hemoglobin (Bld) [Mass/Vol] 10.6 g/dL Low 11.7 - 15.5 g/dL [facility] Interpretation and review of laboratory results Abnormal [facility] Lymphocytes (Bld) [#/Vol] 2.3 10*3/uL 1. 0 - 3.5 10*3/uL [facility] Lymphocytes/100 WBC (Bld) 32.2 % [facility] MCH (RBC) [Entitic mass] 26.2 pg Low 27 - 34 [facility] MCHC (RBC) [Mass/Vol] 33.6 g/dL 32 - 3 6 g/dL [facility] MCV (RBC) [Entitic vol] 78 fL Low 80 - 100 fL [facility] Monocytes (Bld) [#/Vol] 0.5 10*3/uL 0.0 - 0.9 10*3/uL [facility] Monocytes/100 WBC (Bld) 7.3 % P [facility] Neutrophils (Bld) [#/Vol] 4.1 10*3/uL 1. 5 - 6.6 10*3/uL [facility] Neutrophils/100 WBC (Bld) 57.1 % [facility] Platelet mean volume (Bld) [Entitic vol] 9.8 fL 7 - 12 fL [facility] Platelets (Bld) [#/Vol] 239 10*3/uL [facility] RBC (Bld) [#/Vol] 4.05 10*6/uL [facility] WBC LM Ql (Sput) 7.1 [facility] COMPREHENSIVE METABOLIC PANE [employer] 08-30-2024 Albumin [Mass/Vol] 3.4 g/dL Normal 3.2-5.3 [facility] Comment on above: Performed By: #### C BCA, CMP, THYR, 37377-4, 55177-2, 26560-5 #### [facility] ([id number]) [address] [place] [address] 74635 ALP [Catalytic activity/Vol] 82 U/L Normal 39-130 [facility] Comment on above: Performed By: #### C BCA, CMP, THYR, 85964-1, 78881-0, 26828-9 #### [facility] ([id number]) [address] [place] [address] 83624 ALT [Catalytic activity/Vol] 15 U/L Normal <=31 [facility] Comment on above: Performed By: #### C BCA, CMP, THYR, 88933-4, 56584-9, 07902-7 #### [facility] ([id number]) [address] [place] [address] 66153 Anion gap [Moles/Vol] 7 mmol/L Normal 5-15 [facility] Comment on above: Performed By: #### C BCA, CMP, THYR, 04242-7, 83059-6, 04002-0 #### [facility] ([id number]) [address] [place] [address] 72765 AST [Catalytic activity/Vol] 13 U/L Normal <=41 [facility] Comment on above: Performed By: #### C BCA, CMP, THYR, 99841-2, 99208-7, 38983-1 #### [facility] ([id number]) [address] [place] [address] 53639 Bilirubin [Mass/Vol] 0.4 mg/dL Normal 0.3-1.2 [facility] Comment on above: Performed By: #### C BCA, CMP, THYR, 72012-9, 37701-4, 77670-9 #### [facility] ([id number]) [address] [place] [address] 43180 Calcium [Mass/Vol] 8.6 mg/dL Normal 8.5-10.5 [facility] Comment on above: Performed By: #### C BCA, CMP, THYR, 31238-3, 73727-1, 25956-7 #### [facility] ([id number]) [address] [place] [address] 79697 Chloride [Moles/Vol] 107 mmol/L Normal 98-109 [facility] Comment on above: Performed By: #### C BCA, CMP, THYR, 09797-3, 17173-0, 39020-3 #### [facility] ([id number]) [address] [place] [address] 26531 CO2 [Moles/Vol] 25 mmol/L Normal 22-32 [facility] Comment on above: Performed By: #### C BCA, CMP, THYR, 78784-7, 76992-3, 02179-2 #### [facility] ([id number]) [address] [place] [address] 66548 Creatinine [Mass/Vol] 0.63 mg/dL Normal 0.40-1.00 [facility] Comment on above: Result Comment: METH OD TRACEABLE TO IDMS STANDARD Performed By: #### C BCA, CMP, THYR, 39695-3, 37747-2, 60622-9 #### [facility] ([id number]) [address] [place] [address] 99665 EGFR (CKD-EPI) NON-RACE DEPENDENT >^90 Normal >=60 [facility] Comment on above: Result Comment: eGFR not reported due to non-numeric value for Creatinine. Reported eGFR is based on the CKD-EPI 2020 equation that does not use a race coefficient. Performed By: #### C BCA, CMP, THYR, 92838-8, 61833-7, 47191-0 #### [facility] ([id number]) [address] [place] [address] 68049 Glucose [Mass/Vol] 116 mg/dL High 65-99 [facility] Comment on above: Performed By: #### C BCA, CMP, THYR, 33585-3, 59523-5, 23309-5 #### [facility] ([id number]) [address] [place] [address] 05550 Potassium [Moles/Vol] 3.8 mmol/L Normal 3.5-5.0 [facility] Comment on above: Performed By: #### C BCA, CMP, THYR, 03319-9, 80024-5, 52472-1 #### [facility] ([id number]) [address] [place] [address] 77361 Protein [Mass/Vol] 6.4 g/dL Normal 6.0-8.0 [facility] Comment on above: Performed By: #### C BCA, CMP, THYR, 25730-9, 87058-0, 67992-0 #### [facility] ([id number]) [address] [place] [address] 12384 Sodium [Moles/Vol] 139 mmol/L Normal 134-146 [facility] Comment on above: Performed By: #### C BCA, CMP, THYR, 91805-5, 39007-9, 15398-0 #### [facility] ([id number]) [address] [place] [address] 98222 Urea nitrogen [Mass/Vol] 13 mg/dL Normal 5-23 [facility] Comment on above: Performed By: #### C BCA, CMP, THYR, 43857-1, 08246-9, 68142-3 #### [facility] ([id number]) [address] [place] [address] BRAIN WO CONTon CT BRAIN WO CONT CT BRAIN WO CONT CT BRAIN WO CONT INDICATION: Dizziness. TECHNIQUE: [...] dose to as low as reasonably achievable. 41 Finalized by Niko Dumont MD on 08/30/2024 12:44 PM Normal [facility] CT Head WO contraston 2024 CT BRAIN WO CONT INDICATION: Dizziness. TECHNIQUE: [...] dose to as low as reasonably achievable. 41 Finalized by Niko Dumont MD on 08/30/2024 12:44 PM SECTRACOCS Niko Dumont MD - 08/30/2024 CT BRAIN [...] dose to as low as reasonably achievable. 41 Finalized by Niko Dumont MD on 08/30/2024 12:44 PM [employer] Radiology Study observation (narrative) [facility] contrastOrdered B y: Niko Dumont on 08-30-2024 [employer] Work Phone: Cardiac echo study Procedure Ordered By: Pacheco Hernandez on 08-30-2024 Aortic root 2.5 cm [employer] Work Phone: Aortic valve Peak systolic flow by US.doppler 154 cm/s [employer] Work Phone: AV peak gradient 9.49 mmHg [facility] [employer] Work Phone: E wave deceleration time 225 msec [facility] Phone: E/A ratio 1.86 [facility] Work Phone: Energy loss index 10.55 [facility] [employer] Work Phone: Est. RA pressure 3 mmHg [facility] [employer] Work Phone: FS 42 % 28 - 44 % [facility] [employer] Work Phone: Interventricular Septum Diastolic Thickness by 2D 7.95 cm [facility] [employer] Work Phone: IVS 0.8 cm 0.6 - 1.1 cm [facility] Work Phone: LA size 3.7 cm [facility] Work Phone: LA volume 29.4 cm3 [facility] Work [facility]: LA Volume Index 13.5 mL/m2 [facility] Work Phone: Left Ventricle Mass [phone] 2 g [employer] Work Phone: LV ESV A2C 33.1 mL [employer] Work Phone: LV ESV A4C 25.6 mL [employer] Work Phone: LV RWT 2D 36.24 [facility] Work Phone: LVIDd 4.73 cm 5.92 - 8.22 cm [employer] Work Phone: LVIDs 2.72 cm 3.46 - 5.23 cm [employer] Work Phone: LVOT diameter 1.9 cm [facility] Work Phone: LVOT peak alyce 1.36 m/s [employer] Work Phone: MV E' average 15 cm/s [facility] Work Phone: MV Peak A Alyce 54.8 cm/s [facility]: MV Peak E Alyce 102 cm/s [facility] [employer] Work Phone: MV pressure 1/2 time 66 ms [facility] [employer] Work Phone: MV TDI E' (medial) 13 cm/s [facility] [employer] Work Phone: MV valve area p 1/2 method 3.33 cm2 [facility] [employer] Work Phone: PW 0.86 cm 0.6 - 1.1 cm [facility]: RA area 14 cm2 [facility] Work Phone: RV diastolic dimension (basal) 35.4 mm [facility] Work Phone: RV Peak Systolic Pressure 21 mmHg [facility] Work Phone: TAPSE 2.24 cm [facility] Work Phone: TASV 14 cm/s [facility] Work Phone: TDI 15.7 cm/s [facility] Work Phone: TR max alyce 2.1 m/s [facility] Work Phone: TR peak gradient 18 mmHg [facility] Work Phone: TR Peak Alyce 2.1 m/s [facility] Work Phone: ZLVIDD -3.89 [facility] Work Phone: ZLVIDS -3.53 [facility] Work Phone: [facility] Work Phone: Cardiac echo study Procedure on 08-30-2024 Left Ventricle: Left ventricle appears normal in [...] The left ventricular wall motion is normal. [employer] Radiology Study observation (narrative) [facility] Comprehensive metabolic pane grupo 08-30-2024 Albumin [Mass/Vol] 3.4 g/dL 3.2 - 5.3 g/dL [facility] ALP [Catalytic activity/Vol] 82 U/L 39 - 130 U/L [facility] ALT No additional P-5'-P [Catalytic activity/Vol] 15 U/L NINF - 31 U/L [facility] Anion gap [Moles/Vol] 7 mmol/L 5 - 15 mmol/L [facility] AST [Catalytic activity/Vol] 13 U/L NINF - 41 U/L [facility] Bilirubin [Mass/Vol] 0.4 mg/dL 0.3 - 1 .2 mg/dL [facility] Calcium [Mass/Vol] 8.6 mg/dL 8.5 - 10. 5 mg/dL [facility] Chloride [Moles/Vol] 107 mmol/L 98 - 10 9 mmol/L [facility] CO2 [Moles/Vol] 25 mmol/L 22 - 32 mmol/L [facility] Creatinine [Mass/Vol] 0.63 mg/dL 0.40 - 1.00 mg/dL [facility] Comment on above: METHOD TRACEABLE TO IDVT STANDARD EGFR Non-Race Dependent - [facility] Comment on above: eGFR not reported du e to non-numeric value for Creatinine. Reported eGFR is based on the CKD-EPI 2020 equation that does not use a race coefficient. Glucose [Mass/Vol] 116 mg/dL High 65 - 99 mg/dL [facility] Interpretation and review of laboratory results Abnormal [facility] Potassium [Moles/Vol] 3.8 mmol/L 3.5 - 5.0 mmol/L [facility] Protein [Mass/Vol] 6.4 g/dL 6.0 - 8.0 g/dL [facility] Sodium [Moles/Vol] 139 mmol/L 134 - 146 mmol/L [facility] Urea nitrogen [Mass/Vol] 13 mg/dL 5 - 23 mg/dL [facility] FERRITINon 08-30-2024 Ferritin [Mass/Vol] 12 ng/mL Normal 11-307 [facility] Comment on above: Performed By: #### C BCA, CMP, THYR, 83755-0, 84137-9, 39763-5 #### [facility] ([id number]) [address] [place] [address], [place] [address] Ferritinon 08-30-2024 Ferritin [Mass/Vol] 12 ng/mL 11 - 307 ng/mL [facility] Interpretation and review of laboratory results Normal [facility] HEMOGLOBIN A1Con 08-30-2024 Glucose [Mass/Vol] 120 mg/dL Normal [facility] Comment on above: Performed By: #### C BCA, CMP, THYR, 99349-5, 98174-3, 31375-4 #### [facility] ([id number]) [address] [place] [address] 08239 HbA1c (Bld) [Mass fraction] 5.8 % High 4.4-5.6 [facility] Comment on above: Result Comment: ADA Guidelines Result HgbA1c Normal : less than 5.7 % Prediabetes : 5.7 % to 6.4 % Diabetes : > 6.4 % Use with caution in patients with abnormal hemoglobin variants as the half-life of red blood cells and in vivo glycation rates are affected. Performed By: #### C BCA, CMP, THYR, 93311-4, 60955-9, 25773-8 #### [facility] ([id number]) [address] [place] [address] 91658 Hemoglobin A1con 08-30-2024 Average glucose Estimated from glycated hemoglobin (Bld) [Mass/Vol] 120 mg/dL [facility] HbA1c (Bld) [Mass fraction] 5.8 % High 4.4 - 5.6 % [facility] Comment on above: ADA Guidelines Result HgbA1c Normal : less than 5.7 % Prediabetes : 5.7 % to 6.4 % Diabetes : > 6.4 % Use with caution in patients with abnormal hemoglobin variants as the half-life of red blood cells and in vivo glycation rates are affected. Interpretation and review of laboratory results Abnormal [facility] IRON AND TIBCon 08-30-2024 Iron [Mass/Vol] 45 ug/dL Low 50-170 [facility] Comment on above: Performed By: #### C BCA, CMP, THYR, 65000-5, 19746-0, 69837-2 #### [facility] ([id number]) [address] [place] [address] 38583 IRON BINDING 406 ug/dL Normal 250-425 [facility] Comment on above: Performed By: #### C BCA, CMP, THYR, 10595-5, 77032-6, 68023-1 #### [facility] ([id number]) [address] [place] [address] 20819 IRON SATURATION 11 % SATURATION Low 15-50 [facility] Comment on above: Performed By: #### C BCA, CMP, THYR, 76509-5, 43601-6, 52837-4 #### [facility] ([id number]) [address] [place] [address] 36911 Transferrin [Mass/Vol] 290 mg/dL Normal 168-336 [facility] Comment on above: Performed By: #### C BCA, CMP, THYR, 90259-5, 39170-5, 16145-1 #### [facility] ([id number]) [address] [place] [address] 99519 Iron and TIBCon 08-30-2024 Interpretation and review of laboratory results Abnormal [facility] Iron [Mass/Vol] 45 ug/dL Low 50 - 170 ug/dL [facility] Iron binding capacity [Mass/Vol] 406 ug/dL 250 - 425 ug/dL [facility] Iron saturation [Mass fraction] 11 Low [facility] Transferrin [Mass or moles/Vol] 290 mg/dL 168 - 336 mg/dL [facility] MAGNESIUMon 08-30-2024 Magnesium [Mass/Vol] 2.0 mg/dL Normal 1.8-2.6 [facility] Comment on above: Performed By: #### C BCA, CMP, THYR, 71938-5, 61496-3, 47983-8 #### [facility] ([id number]) [address] [place] [address] 03702 Magnesiumon 08-30-2024 Interpretation and review of laboratory results Normal [facility] Magnesium [Mass/Vol] 2 mg/dL 1.8 - 2 .6 mg/dL [facility] No Panel Informationon 08-30 Extra Tube Auto Resulted [facility] OCCULT BLOOD X 1, STOOLon OCCULT BLOOD X 1, STOOL OB OCCULT BLOOD X 1, STOOL Cancelled Normal [facility] , URINEon Beta HCG ( test) Ql (U) Negative Normal Negative [facility] Comment on above: Performed By: #### C BCA, CMP, THYR, 62327-5, 56645-4, 76510-2 #### [facility] ([id number]) [address] [place] [address], [place] [address] , urineOrdered By: Ana Lilia Conrad on 08-30-2024 HCG ( test) Ql (U) Negative Negative [facility] Interpretation and review of laboratory results Normal [facility] RESP PATHOGENS PANEL/SARS-CO V-2on 08-30-2024 SARS-CoV-2 (COVID-19) RNA SAUNDRA+probe Ql (Resp) SARS COV 2 BY PCR Not Detected ADENOVIRUS Not Detected CORONAVIRUS 229E Not Detected CORONAVIRUS HKU1 Not Detected CORONAVIRUS NL63 Not Detected CORONAVIRUS OC43 Not Detected HUMAN METAPNEUVIRUS Not Detected RHINO/ENTEROVIRUS Not Detected INFLUENZA A Not Detected INFLUENZA B Not Detected PARAINFLUENZA 1 Not Detected PARAINFLUENZA 2 Not Detected PARAINFLUENZA 3 Not Detected PARAINFLUENZA 4 Not Detected RESP SYNCYTIAL VIRUS Not Detected BORD PARAPERTUSSIS Not Detected BORDETELLA PERTUSSIS Not Detected CHLAM.PNEUMONIAE Not Detected MYCOPLASMA PNEUMONIAE Not Detected Normal Not Detected [facility] Comment on above: Order Comment: The [employer] Respiratory Panel 2.1 (RP2.1) is a multiplexed [...] to perform high complexity or moderate complexity tests.SARS-CoV-2 RNA and nucleic acids from the other [...] other pathogens. The agent(s) detected by the [employer] RP2.1 may not be the definite cause of disease and clinical correlation with patient history and other diagnostic information is necessary to determine patient infection status.Negative results in the setting of a respiratory [...] a patient with possible respiratory tract infection. Performed By: #### C BCA, CMP, THYR, 42008-1, 60650-3, 17949-2 #### [facility] ([id number]) [address] [place] [address], [place] [address] Respiratory pathogens DNA an d RNA panel SAUNDRA+non-probe (Nph)Ordered By: Richmond Carmona on 08-30-2024 Adenovirus DNA SAUNDRA+probe Ql (Unsp spec) Not detected Not Detected [facility] B. parapertussis [id number] DNA SAUNDRA+non-probe Ql (Nph) Not detected Not Detected [facility] B. pertussis toxin promoter region SAUNDRA+non-probe Ql (Nph) Not detected Not Detected [facility] C. pneumoniae DNA SAUNDRA+non-probe Ql (Nph) Not detected Not Detected [facility] FLUAV RNA SAUNDRA+non-probe Ql (Nph) Not detected Not Detected [facility] FLUBV RNA SAUNDRA+non-probe Ql (Nph) Not detected Not Detected [facility] HCoV 229E RNA SAUNDRA+non-probe Ql (Nph) Not detected Not Detected [facility] HCoV HKU1 RNA SAUNDRA+non-probe Ql (Nph) Not detected Not Detected [facility] HCoV NL63 RNA SAUNDRA+non-probe Ql (Nph) Not detected Not Detected [facility] HCoV OC43 RNA SAUNDRA+non-probe Ql (Nph) Not detected Not Detected [facility] hMPV RNA SAUNDRA+non-probe Ql (Nph) Not detected Not Detected [facility] Interpretation and review of laboratory results Normal [facility] M. pneumoniae DNA SAUNDRA+non-probe Ql (Nph) Not detected Not Detected [facility] Parainfluenza virus 1 RNA SAUNDRA+non-probe Ql (Nph) Not detected Not Detected [facility] Parainfluenza virus 2 RNA SAUNDRA+non-probe Ql (Nph) Not detected Not Detected [facility] Parainfluenza virus 3 RNA SAUNDRA+non-probe Ql (Nph) Not detected Not Detected [facility] Parainfluenza virus 4 RNA SAUNDRA+non-probe Ql (Nph) Not detected Not Detected [facility] Rhinovirus+Enterovirus RNA SAUNDRA+non-probe Ql (Nph) Not detected Not Detected [facility] RSV RNA SAUNDRA+non-probe Ql (Nph) Not detected Not Detected [facility] SARS-CoV-2 (COVID-19) RNA SAUNDRA+probe Ql (Resp) Not detected Not Detected [facility] The [employer] Respiratory Panel 2.1 (RP2.1) is [...] a patient with possible respiratory tract infection. [facility] Carotid arteries - bilate ralon 08-30-2024 Right: No plaque or significant flow abnormality [...] internal carotid artery. Antegrade vertebral artery flow. CARDIOVASCULAR Je Robert MD - 08/30/2024 Right: No [...] internal carotid artery. Antegrade vertebral artery flow. [facility] (narrative) [facility] Carotid arteries - bilate ralOrdered By: Je Robert on 08-30-2024 [facility] Work Phone: BASIC METABOLIC PANELon 06-3 0 Anion gap [Moles/Vol] 7 mmol/L Normal 5-15 [facility] Comment on above: Performed By: #### C BCA, CMP, THYR, 10085-4, 23956-8, 09445-1 #### [facility] ([id number]) [address] [place] [address] 52261 Calcium [Mass/Vol] 9.1 mg/dL Normal 8.5-10.5 [facility] Comment on above: Performed By: #### C BCA, CMP, THYR, 15119-4, 76896-6, 41691-2 #### [facility] ([id number]) [address] [place] [address] 66154 Chloride [Moles/Vol] 105 mmol/L Normal 98-109 [facility] Comment on above: Performed By: #### C BCA, CMP, THYR, 65245-4, 62759-3, 10267-1 #### [facility] [facility] ([id number]) [address] [place] [address] 19003 CO2 [Moles/Vol] 26 mmol/L Normal 22-32 [facility] Comment on above: Performed By: #### C BCA, CMP, THYR, 53662-6, 24763-0, 51764-2 #### [facility] ([id number]) [address] [place] [address] 19877 Creatinine [Mass/Vol] 0.62 mg/dL Normal 0.40-1.00 [facility] Comment on above: Result Comment: METH OD TRACEABLE TO IDMS STANDARD Performed By: #### C BCA, CMP, THYR, 03893-8, 04296-2, 77357-9 #### [facility] ([id number]) [address] [place] [address] 19014 EGFR (CKD-EPI) NON-RACE DEPENDENT >^90 Normal >=60 [facility] Comment on above: Result Comment: eGFR not reported due to non-numeric value for Creatinine. Reported eGFR is based on the CKD-EPI 202 equation that does not use a race coefficient. Performed By: #### C BCA, CMP, THYR, 14729-0, 09873-0, 08957-6 #### [facility] ([id number]) [address] [place] [address] 06495 Glucose [Mass/Vol] 104 mg/dL High 65-99 [facility] Comment on above: Performed By: #### C BCA, CMP, THYR, 88270-6, 03691-1, 83609-2 #### [facility] ([id number]) [address] [place] [address] 57668 Potassium [Moles/Vol] 3.5 mmol/L Normal 3.5-5.0 [facility] Comment on above: Performed By: #### C BCA, CMP, THYR, 53174-6, 71371-2, 05361-5 #### [facility] ([id number]) [address] [place] [address] 20492 Sodium [Moles/Vol] 138 mmol/L Normal 134-146 [facility] Comment on above: Performed By: #### C BCA, CMP, THYR, 05453-7, 41243-9, 54009-6 #### [facility] ([id number]) [address] [place] [address] 49923 Urea nitrogen [Mass/Vol] 14 mg/dL Normal 5-23 [facility] Comment on above: Performed By: #### C BCA, CMP, THYR, 69311-0, 80001-7, 90648-1 #### [facility] ([id number]) [address] [place] [address] 28476 Basic Metabolic Panelon 06-3 0 Anion gap [Moles/Vol] 7 mmol/L 5 - 15 mmol/L [facility] Calcium [Mass/Vol] 9.1 mg/dL 8.5 - 10. 5 mg/dL [facility] Chloride [Moles/Vol] 105 mmol/L 98 - 10 9 mmol/L [facility] CO2 [Moles/Vol] 26 mmol/L 22 - 32 mmol/L [facility] Creatinine [Mass/Vol] 0.62 mg/dL 0.40 - 1.00 mg/dL [facility] Comment on above: METHOD TRACEABLE TO IDMS STANDARD EGFR Non-Race Dependent - [facility]F [facility] Comment on above: eGFR not reported du e to non-numeric value for Creatinine. Reported eGFR is based on the CKD-EPI 2020 equation that does not use a race coefficient. Glucose [Mass/Vol] 104 mg/dL High 65 - 99 mg/dL [facility] Interpretation and review of laboratory results Abnormal [facility] Potassium [Moles/Vol] 3.5 mmol/L 3.5 - 5.0 mmol/L [facility] Sodium [Moles/Vol] 138 mmol/L 134 - 146 mmol/L [facility] Urea nitrogen [Mass/Vol] 14 mg/dL 5 - 23 mg/dL [facility] CBC WITH AUTO DIFFERENTIALon 08-29-2024 BASOPHILS ABSOLUTE COUNT (10*3/UL) BY AUTOMATED COUNT 0.1 10*3/uL Normal 0.0-0.2 [facility] Comment on above: Performed By: #### C BCA, CMP, THYR, 63532-2, 47714-9, 42492-2 #### [facility] ([id number]) [address] [place] [address] 82164 BASOPHILS RELATIVE PERCENT BY AUTOMATED COUNT 1.1 % Normal [facility] Comment on above: Performed By: #### C BCA, CMP, THYR, 97180-4, 05253-2, 46546-8 #### [facility] ([id number]) [address] [place] [address] 85509 CELLAVISION DIFFERENTIAL TYPE AUTOMATED DIFFERENTIAL Normal [facility] Comment on above: Performed By: #### C BCA, CMP, THYR, 59131-0, 17564-5, 35581-4 #### [facility] ([id number]) [address] [place] [address] 38146 Eosinophils (Bld) [#/Vol] 0.1 10*3/uL Normal 0.0-0.4 [facility] Comment on above: Performed By: #### C BCA, CMP, THYR, 92357-4, 56917-7, 69485-1 #### [facility] ([id number]) [address] [place] [address] 92852 EOSINOPHILS RELATIVE PERCENT BY AUTOMATED COUNT 1.5 % Normal [facility] Comment on above: Performed By: #### C BCA, CMP, THYR, 78064-0, 36470-1, 86256-3 #### [facility] ([id number]) [address] [place] [address] 08085 Erythrocyte distribution width (RBC) [Ratio] 15.3 % High 11.5-15 [facility] Comment on above: Performed By: #### C BCA, CMP, THYR, 20045-0, 87737-0, 57867-0 #### [facility] ([id number]) [address] [place] [address] 77492 Hematocrit (Bld) [Volume fraction] 34.3 % Low 35-47 [facility] Comment on above: Performed By: #### C BCA, CMP, THYR, 53331-7, 12758-1, 82276-2 #### [facility] ([id number]) [address] [place] [address] 95693 Hemoglobin (Bld) [Mass/Vol] 11.6 g/dL Low 11.7-15. 5 [facility] Comment on above: Performed By: #### C BCA, CMP, THYR, 50298-6, 92890-2, 65971-7 #### [facility] ([id number]) [address] [place] [address] 80989 LYMPHOCYTES ABSOLUTE COUNT (10*3/UL) BY AUTOMATED COUNT 2.1 10*3/uL Normal 1.0-3.5 [facility] Comment on above: Performed By: #### C BCA, CMP, THYR, 60257-4, 71584-7, 80698-9 #### [facility] ([id number]) [address] [place] [address] 50487 LYMPHOCYTES RELATIVE PERCENT BY AUTOMATED COUNT 26.7 % Normal [facility] Comment on above: Performed By: #### C BCA, CMP, THYR, 40964-7, 28797-7, 60565-2 #### [facility] ([id number]) [address] [place] [address] 52740 MCH (RBC) [Entitic mass] 26.1 pg Low 27-34 [facility] Comment on above: Performed By: #### C BCA, CMP, THYR, 81215-7, 56294-5, 15667-1 #### [facility] ([id number]) [address] [place] [address] 51224 MCHC (RBC) [Mass/Vol] 33.9 g/dL Normal 32-36 [facility] Comment on above: Performed By: #### C BCA, CMP, THYR, 66133-4, 84387-5, 69220-9 #### [facility] ([id number]) [address] [place] [address] 66717 MCV (RBC) [Entitic vol] 77 fL Low 80-100 [facility] Comment on above: Performed By: #### C BCA, CMP, THYR, 55642-0, 32295-6, 51788-6 #### [facility] ([id number]) [address] [place] [address] 17159 MONOCYTES ABSOLUTE COUNT (10*3/UL) BY AUTOMATED COUNT 0.4 10*3/uL Normal 0.0-0.9 [facility] Comment on above: Performed By: #### C BCA, CMP, THYR, 90744-9, 69296-9, 18380-8 #### [facility] ([id number]) [address] [place] [address] 13311 MONOCYTES RELATIVE PERCENT BY AUTOMATED COUNT 5.6 % Normal [facility] Comment on above: Performed By: #### C BCA, CMP, THYR, 36380-6, 29455-9, 96111-5 #### [facility] ([id number]) [address] [place] [address] 45362 NEUTROPHILS ABSOLUTE COUNT BY AUTOMATED COUNT 5.0 10*3/uL Normal 1.5-6.6 [facility] Comment on above: Performed By: #### C BCA, CMP, THYR, 28430-1, 09250-1, 98976-2 #### [facility] ([id number]) [address] [place] [address] 89212 NEUTROPHILS RELATIVE PERCENT BY AUTOMATED COUNT 65.1 % Normal [facility] Comment on above: Performed By: #### C BCA, CMP, THYR, 84237-9, 70618-8, 01399-5 #### [facility] ([id number]) [address] [place] [address] 44902 Platelet mean volume (Bld) [Entitic vol] 9.3 fL Normal 7-12 [facility] Comment on above: Performed By: #### C BCA, CMP, THYR, 63465-9, 70746-1, 51368-5 #### [facility] ([id number]) [address] [place] [address] 91912 Platelets (Bld) [#/Vol] 272 10*3/uL Normal 150-450 [facility] Comment on above: Performed By: #### C BCA, CMP, THYR, 69506-6, 53955-2, 59274-7 #### [facility] ([id number]) [address] [place] [address] 45107 RBC COUNT 4.45 X10E12/L Normal 3.8-5.2 [facility] Comment on above: Performed By: #### C BCA, CMP, THYR, 43446-5, 42558-0, 29597-7 #### [facility] ([id number]) [address] [place] [address] 55368 WBC (Bld) [#/Vol] 7.7 10*3/uL Normal 4-11 [facility] Comment on above: Performed By: #### C BCA, CMP, THYR, 79583-1, 70625-2, 39536-0 #### [facility] ([id number]) [address] [place] [address] 10654 CBC auto differentialon -3 Basophils (Bld) [#/Vol] 0.1 10*3/uL 0.0 - 0.2 10*3/uL [facility] Basophils/100 WBC (Bld) 1.1 % [facility] Differential cell count method Nom (Bld) AUTOMATED DIFFERENTIAL [facility] Eosinophils (Bld) [#/Vol] 0.1 10*3/uL 0. 0 - 0.4 10*3/uL [facility] Eosinophils/100 WBC (Bld) 1.5 % [facility] Erythrocyte distribution width (RBC) [Ratio] 15.3 % High 11.5 - 15 % [facility] Hematocrit (Bld) [Volume fraction] 34.3 % Low 35 - 47 % [facility] Hemoglobin (Bld) [Mass/Vol] 11.6 g/dL Low 11.7 - 15.5 g/dL [facility] Interpretation and review of laboratory results Abnormal [facility] Lymphocytes (Bld) [#/Vol] 2.1 10*3/uL 1. 0 - 3.5 10*3/uL [facility] Lymphocytes/100 WBC (Bld) 26.7 % [facility] MCH (RBC) [Entitic mass] 26.1 pg Low 27 - 34 pg [facility] MCHC (RBC) [Mass/Vol] 33.9 g/dL 32 - 3 6 g/dL [facility] MCV (RBC) [Entitic vol] 77 fL Low 80 - 100 fL [facility] Monocytes (Bld) [#/Vol] 0.4 10*3/uL 0.0 - 0.9 10*3/uL [facility] Monocytes/100 WBC (Bld) 5.6 % [facility] Neutrophils (Bld) [#/Vol] 5 10*3/uL 1. 5 - 6.6 10*3/uL [facility] Neutrophils/100 WBC (Bld) 65.1 % [facility] Platelet mean volume (Bld) [Entitic vol] 9.3 fL 7 - 12 fL [facility] Platelets (Bld) [#/Vol] 272 10*3/uL [facility] RBC (Bld) [#/Vol] 4.45 10*6/uL [facility] WBC LM Ql (Sput) 7.7 [facility] ECG 12 leadon 08-29-2024 TRACEMASTERVUE [facility] Light Blue Topon 08-29-2024 Extra Tube Auto Resulted [facility] MAGNESIUMon 08-29-2024 Magnesium [Mass/Vol] 2.2 mg/dL Normal 1.8-2.6 [facility] Comment on above: Performed By: #### C BCA, CMP, THYR, 57530-6, 26544-5, 57220-2 #### [facility] ([id number]) [address] [place] [address], [place] [address] Magnesiumon 08-29-2024 Interpretation and review of laboratory results Normal [facility] Magnesium [Mass/Vol] 2.2 mg/dL 1.8 - 2 .6 mg/dL [facility] No Panel Informationon 08-29 [facility] THYROID PROFILE INCLUDES TSH FT4on 08-29-2024 Free T4 [Mass/Vol] 0.71 ng/dL Normal 0.61-1.60 [facility] Comment on above: Performed By: #### C BCA, CMP, THYR, 50070-0, 06079-6, 04778-6 #### [facility] ([id number]) [address] [place] [address] 85991 TSH 0.95 uIU/mL Normal 0.49-4.67 [facility] Comment on above: Performed By: #### C BCA, CMP, THYR, 70376-1, 83729-2, 47470-9 #### [facility] ([id number]) [address] [place] [address] 04606 TROP I, HIGH SENSITIVITY 1 H OUR08-29-2024 TROPONIN I, HIGH SENSITIVITY <^2 Normal <16 [facility] Comment on above: Performed By: #### C BCA, CMP, THYR, 16492-4, 10612-2, 17254-8 #### [facility] ([id number]) [address] [place] [address] 45359 TROPONIN I, HIGH SENSITIVITY 0 HOURon 08-29-2024 TROPONIN I, HIGH SENSITIVITY <^2 Normal <16 [facility] Comment on above: Performed By: #### C BCA, CMP, THYR, 89310-5, 23778-3, 61567-6 #### [facility] ([id number]) [address] [place] [address] 56169 Thyroid profile includes TSH FT4on 08-29-2024 Free T4 [Mass/Vol] 0.71 ng/dL 0.61 - 1.60 ng/dL [facility] Interpretation and review of laboratory results Normal [facility] TSH Qn 0.95 m[IU]/L [facility] Troponin I, High Sensitivity 0 Houron 08-29-2024 Interpretation and review of laboratory results Normal [facility] Troponin I.cardiac High sensitivity method [Mass/Vol] ng/L NINF - 16 ng/L [facility] Troponin I, High Sensitivity 1 Houron 08-29-2024 Interpretation and review of laboratory results Normal [facility] Troponin I.cardiac High sensitivity method [Mass/Vol] ng/L NINF - 16 ng/L [facility] XR CHEST 1 VWon 08-29-2024 XR CHEST 1 VW XR CHEST 1 VW Portable chest: HISTORY: Chest pain. Single view of the chest was obtained and compared to prior exam dated 212.5. Cardiac and mediastinal contours are stable. No focal infiltrate or effusion. No pneumothorax seen. IMPRESSION: No acute findings 16 Finalized by Adam Sin MD on 08/29/2024 11:24 AM Normal [facility] XR Chest Single viewon 08-29 Portable chest: HISTORY: Chest pain. Single view of the chest was obtained and compared to prior exam dated 212.5. Cardiac and mediastinal contours are stable. No focal infiltrate or effusion. No pneumothorax seen. IMPRESSION: No acute findings 16 Finalized by Adam Sin MD on 08/29/2024 11:24 AM SECTRAPACS Adam Sin MD - 08/29/2024 Portable chest: HISTORY: Chest pain. Single view of the chest was obtained and compared to prior exam dated 212.5. Cardiac and mediastinal contours are stable. No focal infiltrate or effusion. No pneumothorax seen. IMPRESSION: No acute findings 16 Finalized by Adam Sin MD on 08/29/2024 11:24 AM [facility] Radiology Study observation (narrative) [facility] XR Chest Single viewOrdered By: Adam Sin on 08-29-2024 [facility] Work Phone: XR KNEE LT 3 VWSon XR KNEE LT 3 VWS XR KNEE LT 3 VWS XR KNEE LT 3 VWS HISTORY: Patellar injury COMPARISON: 08/01/2020 IMPRESSION: * No acute fracture or dislocation. Lack of sunrise views limits evaluation of the patella. * No significant joint effusion. * Unfused tibial tubercle versus sequela of prior injury. 05 Finalized by Mesfin Turner on 07/26/2024 10:28 PM Normal [facility] X-ray reportOrdered By: Narciso Roberts on 07-23-2024 Study report [facility] Main [address] [address] XRay Report Signed Patient: Jolene Morales MR#: [id number] : 2000 Acct:[id number] Age/Sex: 23 / F ADM Date: 5 Loc: XDUCLY Room: Type: [facility] CLI Attending Dr: Izzy Ortiz APRN, RESIDENTIAL TREATMENT STAFF-C Copies to: Izzy Ortiz APRN~ Ordering Provider: Izzy Ortiz APRN Date of [...] Roberts M.D. 07/23/2024 1:21 PM Dictation Location: [place] [address] Transcribed By: [facility] 07/23/24 1321 Dictated By: Narciso Roberts II, MD 07/23/24 1320 Signed By: 07/23/24 1321 [facility] Work Phone: XR knee LT 4V*on 07-23-2024 XR knee LT 4V* [facility] Main [address] [address] XRay Report Signed Patient: Jolene Morales MR#: [id number] : 2000 Acct:[id number] Age/Sex: 23 / F ADM Date: 07/23/24 Loc: XDUCLY Room: Type: [facility] Attending Dr: Izzy Ortiz APRN, RESIDENTIAL TREATMENT STAFF-C Copies to: Izzy Ortiz APRN Ordering Provider: [...] Roberts M.D. 07/23/2024 1:21 PM Dictation Location: [place] [address] Transcribed By: [facility] 07/23/24 1321 Dictated By: Narciso Roberts II, MD 07/23/24 1320 Signed By: 07/23/24 1321 Normal [facility] BMPon 07-02-2024 Anion gap [Moles/Vol] 13 mmol/L 9 - 16 mmol/L [facility] Calcium [Mass/Vol] 8.9 mg/dL 8.6 - 10. 4 mg/dL [facility] Chloride [Moles/Vol] 105 mmol/L 98 - 10 7 mmol/L [facility] CO2 [Moles/Vol] 22 mmol/L 20 - 31 mmol/L [facility] Creatinine [Mass/Vol] 0.6 mg/dL 0.50 - 0.90 mg/dL [facility] Est, Glom Aamir Rate - PINF [facility] Comment on above: These results are not [...] 102 mg/dL High 74 - 99 mg/dL [facility] Interpretation and review of laboratory results Abnormal [facility] Potassium [Moles/Vol] 3.7 mmol/L 3.7 - 5.3 mmol/L [facility] Sodium [Moles/Vol] 140 mmol/L 136 - 145 mmol/L [facility] Urea nitrogen [Mass/Vol] 9 mg/dL 6 - 20 mg/dL [facility] Urea nitrogen/Creatinine [Mass ratio] 15 mg/mg - [facility] Basic Metabolic Profon 07-02 Anion gap [Moles/Vol] 13 mmol/L Normal - [facility] Comment on above: Performed By: #### B GONZALO, CDP ####[address] [place] [address] lab Director: Augustine Don MD BUN/CRE Ratio 15 Normal - [facility] Comment on above: Performed By: #### B GONZALO, CDP ####[address] [place] [address] lab Director: Augustine Don MD Calcium [Mass/Vol] 8.9 mg/dL Normal 8.6-10.4 [facility] Comment on above: Performed By: #### B GONZALO, CDP ####[address] [place] [address] lab Director: Augustine Don MD Chloride [Moles/Vol] 105 mmol/L Normal 98-107 [facility] Comment on above: Performed By: #### B GONZALO, CDP ####[address] [place] [address] lab Director: Augustine Don MD CO2 [Moles/Vol] 22 mmol/L Normal - [facility] Comment on above: Performed By: #### B GONZALO, CDP ####[address] , [place] [id number] Lab Director: Augustine Don MD Creatinine [Mass/Vol] 0.6 mg/dL Normal 0.50-0.90 [facility] Comment on above: Performed By: #### B GONZALO, CDP ####[address] , [place] [address] Lab Director: Augustine Don MD GFR/1.73 sq M.predicted among non-blacks MDRD (S/P/Bld) [Vol rate/Area] mL/min/{1.73_m2} Normal >60 [facility] Comment on above: Result Comment: These results [...] secretion. Performed By: #### B GONZALO, CDP ####[address] [place] [address] Lab Director: Augustine Don MD Glucose [Mass/Vol] 102 mg/dL High 74-99 [facility] Comment on above: Performed By: #### B GONZALO, CDP ####[address] , [place] [id number] Lab Director: Augustine Don MD Potassium [Moles/Vol] 3.7 mmol/L Normal 3.7-5.3 [facility] Comment on above: Performed By: #### B GONZALO, CDP ####[address] [place] [address] Lab Director: Augustine Don MD Sodium [Moles/Vol] 140 mmol/L Normal 136-145 [facility] Comment on above: Performed By: #### B GONZALO, CDP ####[address] [id number] Lab Director: Augustine Don MD Urea nitrogen [Mass/Vol] 9 mg/dL Normal 6-20 [facility] Comment on above: Performed By: #### B MP, CDP ####[facility] [place] , [place] [id number] lab Director: Augustine Don MD CBC with Auto Differentialon 07-02-2024 Basophils (Bld) [#/Vol] 0.05 10*3/uL [facility] Basophils/100 WBC (Bld) 1 % 0 - 2 % B on [facility] Eosinophils (Bld) [#/Vol] 0.16 10*3/uL [facility] Eosinophils/100 WBC (Bld) 3 % 1 - 4 % [facility] Erythrocyte distribution width (RBC) [Ratio] 14.4 % 11.8 - 14.4 % [facility] Hematocrit (Bld) [Volume fraction] 36.2 % Low 36.3 - 47.1 % [facility] Hemoglobin (Bld) [Mass/Vol] 11.7 g/dL Low 11.9 - 15.1 g/dL [facility] Immature granulocytes (Bld) [#/Vol] 0 10*3/uL [facility] Immature granulocytes/100 WBC (Bld) 0 % 0 [facility] Interpretation and review of laboratory results Abnormal [facility] Lymphocytes/100 WBC (Bld) 31 % 25 - 45 % [facility] Lymphocytes/100 WBC (Bld) 1.64 % [facility] MCH (RBC) [Entitic mass] 25.1 pg Low 25. 2 - 33.5 pg [facility] MCHC (RBC) [Mass/Vol] 32.3 g/dL 28.4 - 34.8 g/dL [facility] MCV (RBC) [Entitic vol] 77.7 fL Low 82.6 - 102.9 fL [facility] Monocytes/100 WBC (Bld) 7 % 2 - 8 % B on [facility] Monocytes/100 WBC (Bld) 0.37 % B on [facility] Morphology Arnel (Bld) [Interp] Platelet scan shows Normal Platelets [facility] Neutrophils/100 WBC (Bld) 58 % 34 - 64 % [facility] Nucleated RBC/100 WBC (Bld) [Ratio] 0 % 0.0 per 100 WBC [facility] Platelet, Fluorescence 122 Low Nish n [facility] Platelets (Bld) [#/Vol] See Reflexed IPF Result [facility] Platelets reticulated/100 platelets Auto (Bld) 8.7 % 1.1 - 10.3 % [facility] RBC (Bld) [#/Vol] 4.66 10*6/uL 3.95 - 5.11 m/uL [facility] Segmented neutrophils/100 WBC (Bld) 3.08 % [facility] WBC other (Bld) [#/Vol] 5.3 B on [facility] CBC with Diffon 07-02-2024 Abs. Basophil 0.05 k/uL Normal 0.00-0.20 [facility] Comment on above: Performed By: #### B GONZALO, CDP ####[address] , [place] [address] Lab Director: Augustine Don MD Abs.Imm.Granulocyte 0.00 k/uL Normal 0.00-0.30 [facility] Comment on above: Performed By: #### B GONZALO, CDP ####[address] , [facility] Lab Director: Augustine Don MD Abs.Neutrophil (Seg) 3.08 k/uL Normal 1.50-8.10 [facility] Comment on above: Performed By: #### B GONZALO, CDP ####[address] , [facility] Lab Director: Augustine Don MD Basophils/100 WBC (Bld) 1 % Normal 0-[address] [facility] Comment on above: Performed By: #### B GONZALO, CDP ####[address] [place] [address] Lab Director: Augustine Don MD Eosinophils (Bld) [#/Vol] 0.16 10*3/uL Normal 0.00-0.4 4 [facility] Comment on above: Performed By: #### B MP, CDP ####[address] [place] [address] Lab Director: Augustine Don MD Eosinophils/100 WBC (Bld) 3 % Normal 1-4 [facility] Comment on above: Performed By: #### B MP, CDP ####[address] [place] [address] Lab Director: Augustine Don MD Immature granulocytes/100 WBC (Bld) 0 % Normal 0 [facility] Comment on above: Performed By: #### B MP, CDP ####[address] , [facility]83[facility])[phone] Director: Augustine Don MD Lymphocytes (Bld) [#/Vol] 1.64 10*3/uL Normal 1.10-3.7 0 [facility] Comment on above: Performed By: #### B MP, CDP ####[address] [place] [address] Lab Director: Augustine Don MD Lymphocytes/100 WBC (Bld) 31 % Normal 25-45 [facility] Comment on above: Performed By: #### B MP, CDP ####[address] [place] [address] Lab Director: Augustine Don MD Monocytes (Bld) [#/Vol] 0.37 10*3/uL Normal 0.10-1.40 [facility] Comment on above: Performed By: #### B MP, CDP ####[address] , [place] 59[address]483 Lab Director: Augustine Don MD Monocytes/100 WBC (Bld) 7 % Normal 2-[address] [facility] Comment on above: Performed By: #### B GONZALO, CDP ####[address] , [place] 324[address]83 Lab Director: Augustine Don MD Morphology Arnel (Bld) [Interp] Platelet scan shows Normal Platelets Normal [facility] Comment on above: Performed By: #### B GONZALO, CDP ####[address] [place] [address] Lab Director: Augustine Don MD Neutrophil (Seg) 58 % Normal 34-64 [facility] Comment on above: Performed By: #### B GONZALO, CDP ####[address] , [place] [id number] Lab Director: Augustine Don MD Erythrocyte distribution width (RBC) [Ratio] 14.4 % Normal 11.8-14.4 [facility] Comment on above: Performed By: #### B GONZALO, CDP ####[address] [place] [address] Lab Director: Augustine Don MD Hematocrit (Bld) [Volume fraction] 36.2 % Low 36.3-47.1 [facility] Comment on above: Performed By: #### B GONZALO, CDP ####[address] [place] [address] Lab Director: Augustine Don MD Hemoglobin (Bld) [Mass/Vol] 11.7 g/dL Low 11.9-15. 1 [facility] Comment on above: Performed By: #### B GONZALO, CDP ####[address] , [place] [id number] Lab Director: Augustine Don MD MCH (RBC) [Entitic mass] 25.1 pg Low 25.2-33.5 [facility] Comment on above: Performed By: #### B MP, CDP ####[address] , [place] 513[address]83 Lab Director: Augustine Don MD MCHC (RBC) [Mass/Vol] 32.3 g/dL Normal 28.4-34.8 [facility] Comment on above: Performed By: #### B MP, CDP ####[address] , [place] 7[address]83 Lab Director: Augustine Don MD MCV (RBC) [Entitic vol] 77.7 fL Low 82.6-102.[address] [facility] Comment on above: Performed By: #### B MP, CDP ####[address] , [place] 4474783 Lab Director: Augustine Don MD NRBC Automated 0.0 per 100 WBC Normal 0.0 [facility] Comment on above: Performed By: #### B MP, CDP ####[address] [place] [address] Lab Director: Augustine Don MD Platelet Count See Reflexed IPF Result Normal 138-453 [facility] Comment on above: Performed By: #### B MP, CDP ####[address] [place] [address] Lab Director: Augustine Don MD Platelet, Fluoresc. 122 k/uL Low 138-453 [facility] Comment on above: Performed By: #### B MP, CDP ####[address] , [place] 088[address]83 Lab Director: Augustine Don MD PLT, Immature Fract. 8.7 % Normal 1.1-10.3 [facility] Comment on above: Performed By: #### B MP, CDP ####[address] , [place] 9124483 Lab Director: Augustine Don MD RBC (Bld) [#/Vol] 4.66 10*6/uL Normal 3.95-5.11 [facility] Comment on above: Performed By: #### B MP, CDP ####[facility] [place] , [place] 3855283 Lab Director: Augustine Don MD WBC (Bld) [#/Vol] 5.3 10*3/uL Normal 4.5-13.5 [facility] Comment on above: Performed By: #### B MP, CDP ####[facility] [place] , [place] 4843683 Lab Director: Augustine Don MD HCG, Quanton 07-02-2024 HCG, Quant 12.2 mIU/mL High 0-7 [facility] Comment on above: Result Comment: Non-preg premeno <=5 Postmeno <=8 Male <=3 If HCG results do not concur with clinical observations, additional testing to confirm results is recommended. Performed By: #### B HCG ####[facility] [place] , [place] [id number] Lab Director: Augustine Don MD HCG, Quantitative, on 07-02-2024 HCG.beta subunit Qn 12.2 m[IU]/mL High Nish n [facility] Comment on above: Non-preg premeno <=5 Postmeno <=8 Male <=3 If HCG results do not concur with clinical observations, additional testing to confirm results is recommended. Interpretation and review of laboratory results Abnormal [facility] Microscopic Urinalysison Bacteria LM Ql (Urine sed) 1+ Abnormal None [facility] Epithelial cells LM.HPF (Urine sed) [#/Area] 2 TO 5 [facility] Interpretation and review of laboratory results Abnormal [facility] Mucus Ql (Urine sed) 2+ Abnormal None [facility] RBC LM.HPF (Urine sed) [#/Area] 20 TO 50 [facility] WBC LM.HPF (Urine sed) [#/Area] 2 TO 5 Bon [facility] Bon [facility] UA w/Reflex Cultureon 2024 Bilirubin, SemiQt,Ur Negative Normal NEG [facility] Comment on above: Performed By: #### U AX, UMICAO ####[address] [place] [address] Lab Director: Augustine Don MD Blood, Urine 3+ Abnormal NEG [facility] Comment on above: Performed By: #### U AX, UMICAO ####[address] [place] [address] Lab Director: Augustine Don MD Clarity (U) SLIGHTLY CLOUDY Abnormal CLEAR [facility] Comment on above: Performed By: #### U AX, UMICAO ####[address] [place] [address] Lab Director: Augustine Don MD Color (U) Yellow Normal YEL [facility] Comment on above: Performed By: #### U AX, UMICAO ####[address] [place] [address] Lab Director: Augustine Don MD Glucose Ql (U) Negative Normal NEG [facility] Comment on above: Performed By: #### U AX, UMICAO ####[address] [place] [address] Lab Director: Augustine oDn MD Ketones Ql (U) TRACE Abnormal NEG [facility] Comment on above: Performed By: #### U AX, UMICAO ####[address] [place] [address] Lab Director: Augustine Don MD Leukocyte esterase Test strip Ql (U) Negative Normal NEG [facility] Comment on above: Performed By: #### U AX, UMICAO ####[address] [address]383 Lab Director: Augustine Don MD Nitrite,Ur Negative Normal NEG [facility] Comment on above: Performed By: #### U AX, UMICAO ####[address] [place] [address] Lab Director: Augustine Don MD PH,Ur 6.0 Normal 5.0-9.0 [facility] Comment on above: Performed By: #### U AX, UMICAO ####[address] [place] [address] Lab Director: Augustine Don MD Protein Ql (U) 1+ mg/dL Abnormal NEG [facility] Comment on above: Performed By: #### U AX, UMICAO ####[address] [place] [address] Lab Director: Augustine Don MD Spec. [place],Ur 1.025 High 1.010-1.02 0 [facility] Comment on above: Performed By: #### U AX, UMICAO ####[address] , [place] 8001783 Lab Director: Augustine Don MD Urobilinogen,Ur Normal Normal 0.0-1.0 [facility] Comment on above: Performed By: #### U AX, UMICAO ####[address] [place] [address] Lab Director: Augustine Don MD US OB TRANSVAGINALon [...] None Yolk Sac: None Embryo(<11wk)/Fetu s(>=11wk): None [place] Rump Length: None Rate of Cardiac Activity [...] Carroll Stout MD 07/02/24 Final result Normal [facility] of unknown location. Differential diagnosis of a of unknown location with hCG < 3000 includes nonvisualized early intrauterine , nonvisualized ectopic , or an early loss that has completely passed. Recommend follow up as indicated with beta hCG and ultrasound. [facility] EXAMINATION: FIRST TRIMESTER OBSTETRIC ULTRASOUND 07/02/2024 TECHNIQUE: Transvaginal first trimester obstetric pelvic duplex ultrasound was performed with real-time imaging, color flow Doppler imaging, and spectral analysis. COMPARISON: None HISTORY: ORDERING SYSTEM PROVIDED HISTORY: Vaginal bleeding in TECHNOLOGIST PROVIDED HISTORY: Vaginal bleeding in FINDINGS: Uterus: 8.5 x 3.8 x 2.5 cm Gestational Sac(s): None Yolk Sac: None Embryo(<11wk)/Fetu s(>=11wk): None [place] Rump Length: None Rate of Cardiac Activity none Right ovary: 2.5 x 1.7 x 1.9 cm Left ovary: 3.3 x 1.8 x 3.1 cm Flow is preserved to the ovaries with appropriate waveforms. Free fluid: None [facility] Carroll Stout MD - 07/02/2024 EXAMINATION: FIRST [...] None Yolk Sac: None Embryo(<11wk)/Fetu s(>=11wk): None [place] Rump Length: None Rate of Cardiac Activity [...] as indicated with beta hCG and ultrasound. [facility] Radiology Study observation (narrative) [facility] US OB TRANSVAGINALOrdered By : Carroll Stout on 07-02-2024 [facility] Work Phone: Urinalysis with Reflex to Cu ltureon 07-02-2024 Bilirubin Ql (U) Negative NEGATIVE [facility] Usetrace Clarity (U) SLIGHTLY CLOUDY Abnormal Clear [facility] Color (U) Yellow Yellow [facility] Glucose Test strip (U) [Mass/Vol] Negative NEGATIVE mg/dL [facility] Hemoglobin Auto test strip Ql (U) 3+ Abnormal NEGATIVE [facility] Interpretation and review of laboratory results Abnormal [facility] Ketones (U) [Mass/Vol] TRACE Abnormal NEGAT MICHELE mg/dL [facility] Leukocyte esterase Test strip Ql (U) Negative NEGATIVE [facility] Nitrite Ql (U) Negative NEGATIVE [facility] pH (U) 6 [pH] 5.0 - 9.0 [facility] Protein (U) [Mass/Vol] 1+ Abnormal NEGAT MICHELE mg/dL [facility] Specific gravity (U) [Rel density] 1.025 High 1.010 - 1.020 [facility] Urobilinogen Qn (U) Normal 0.0 - 1. 0 EU/dL [facility] Urinalysis,Microon 5 Bacteria 1+ Abnormal NONE [facility] Comment on above: Performed By: #### U AX, UMICAO ####[facility] [place] , [place] [id number] Lab Director: Augustine Don MD Epithelial cells LM Ql (Urine sed) 2 TO 5 Normal 0-25 [facility] Comment on above: Performed By: #### U AX, UMICAO ####[facility] [place] [address] Lab Director: Augustine Don MD Mucus Strands 2+ Abnormal NONE [facility] Comment on above: Performed By: #### U AX, UMICAO ####[address] , [place] 6427383 Lab Director: Augustine Don MD Urine RBC's 20 TO 50 Normal 0-2 [facility] Comment on above: Performed By: #### U AX, UMICAO ####[address] , [facility] Lab Director: Augustine Don MD Urine WBC's 2 TO 5 Normal 0-5 [facility] Comment on above: Performed By: #### U AX, UMICAO ####[address] , [place] 098[address]83 Lab Director: Augustine Don MD AMYLASEon 06-30-2024 Amylase [Catalytic activity/Vol] 25 U/L Low 28-100 [facility] Comment on above: Performed By: #### C BCA, CMP, THYR, 17767-3, 82919-3, 17985-7 #### [facility] ([id number]) [address] [place] [address], [place] [address] HCG-BETA, SERUMon 06-30-2024 HCG.beta subunit Qn 36 m[IU]/mL Normal [facility] Comment on above: Order Comment: WEEKS (SINCE LMP) MIU/mL3 WEEKS 5 - 504 WEEKS 5 - 4265 WEEKS 18 - 7,3406 WEEKS 1,080 - 56,5007-8 WEEKS 7,650 - 229,0009-12 WEEKS 25,700 - 288,84563-26 WEEKS 13,300 - 254,53443-14 WEEKS 4,060 - 165,37140-45 WEEKS 3,640 - 117,000MALES AND NON- FEMALES - <5 MIU/mLThis test has been FDA approved for use inpregnancy only. Elevated levels are notnecessarily diagnostic for trophoblasticor nontrophoblastic neoplasms. Performed By: #### C IRAIS, KIAN, THYR, 85878-9, 02071-2, 22290-2 #### [facility] ([id number]) [address] [place] [address], [place] [address] US OB TRANSVAGINALon 025 US OB TRANSVAGINAL [...] Sumi Ayers MD 06/30/24 Final result Normal [facility] POCT , urineon 06-02 Beta HCG ( test) Ql (U) Positive [facility] Internal Operation Shift Supervisor Check Completed and Passed Yes [facility] Interpretation and review of laboratory results Abnormal [facility] CBC with Auto Differentialon 06-28-2024 Basophils (Bld) [#/Vol] 0.03 10*3/uL [facility] Basophils/100 WBC (Bld) 1 % 0 - 2 % B on [facility] Eosinophils (Bld) [#/Vol] 0.08 10*3/uL [facility] Eosinophils/100 WBC (Bld) 2 % 1 - 4 % [facility] Erythrocyte distribution width (RBC) [Ratio] 14.4 % 11.8 - 14.4 % [facility] Hematocrit (Bld) [Volume fraction] 38.5 % 36.3 - 47.1 % [facility] Hemoglobin (Bld) [Mass/Vol] 12.4 g/dL 11.9 - 15.1 g/dL [facility] Immature granulocytes (Bld) [#/Vol] [facility] Immature granulocytes/100 WBC (Bld) 0 % 0 [facility] Interpretation and review of laboratory results Abnormal [facility] Lymphocytes/100 WBC (Bld) 24 % Low 25 - 45 % [facility] Lymphocytes/100 WBC (Bld) 1.3 % [facility] MCH (RBC) [Entitic mass] 25.3 pg 25. 2 - 33.5 pg [facility] MCHC (RBC) [Mass/Vol] 32.2 g/dL 28.4 - 34.8 g/dL [facility] MCV (RBC) [Entitic vol] 78.6 fL Low 82.6 - 102.9 fL [facility] Monocytes/100 WBC (Bld) 9 % High 2 - 8 % B on [facility] Monocytes/100 WBC (Bld) 0.5 % B on [facility] Neutrophils/100 WBC (Bld) 64 % 34 - 64 % [facility] Nucleated RBC/100 WBC (Bld) [Ratio] 0 % 0.0 per 100 WBC [facility] Platelet mean volume (Bld) [Entitic vol] 11.3 fL 8.1 - 13.5 fL [facility] Platelets (Bld) [#/Vol] 263 10*3/uL [facility] RBC (Bld) [#/Vol] 4.9 10*6/uL 3.95 - 5.11 m/uL [facility] Segmented neutrophils/100 WBC (Bld) 3.56 % [facility] WBC other (Bld) [#/Vol] 5.5 B on [facility] CBC with Diffon 06-28-2024 Abs. Basophil 0.03 k/uL Normal 0.00-0.20 [facility] Comment on above: Performed By: #### JUAN JUAREZ, HCG #### [facility] [address] [place] [address] [place] [id number] Physician Asst: Augustine Don MD Abs.Imm.Granulocyte <0.03 Normal 0.00-0.30 [facility] Comment on above: Performed By: #### JUAN JUAREZ, HCG #### [address] [place] [address] Physician Asst: Augustine Don MD Abs.Neutrophil (Seg) 3.56 k/uL Normal 1.50-8.10 [facility] Comment on above: Performed By: #### JUAN JUAREZ, HCG #### [address] [place] [address]783 Physician Asst: Augustine Don MD Basophils/100 WBC (Bld) 1 % Normal 0-2 [facility] Comment on above: Performed By: #### JUAN JUAREZ, HCG #### [address] [place] [address]783 Physician Asst: Augustine Don MD Eosinophils (Bld) [#/Vol] 0.08 10*3/uL Normal 0.00-0.4 4 [facility] Comment on above: Performed By: #### R JUAN GOMEZ, HCG #### [address] [place], [place] [address]83 Physician Asst: Augustine Don MD Eosinophils/100 WBC (Bld) 2 % Normal 1-4 [facility] Comment on above: Performed By: #### R JUAN GOMEZ, HCG #### [address] [place] [address]783 Physician Asst: Augustine Don MD Erythrocyte distribution width (RBC) [Ratio] 14.4 % Normal 11.8-14.4 [facility] Comment on above: Performed By: #### R JUAN GOMEZ, HCG #### [address] [place] [phone] Physician Asst: Augustine Don MD Hematocrit (Bld) [Volume fraction] 38.5 % Normal 36.3-47.1 [facility] Comment on above: Performed By: #### JUAN JUAREZ, HCG #### [address] [place] [phone] Physician Asst: Augustine Don MD Hemoglobin (Bld) [Mass/Vol] 12.4 g/dL Normal 11.9-15. 1 [facility] Comment on above: Performed By: #### R JUAN GOMEZ, HCG #### [address] [place], [place] 9858383 Physician Asst: Augustine Don MD Immature granulocytes/100 WBC (Bld) 0 % Normal 0 [facility] Comment on above: Performed By: #### R JUAN GOMEZ, HCG #### [address] [place] [address] Physician Asst: Augustine Don MD Lymphocytes (Bld) [#/Vol] 1.30 10*3/uL Normal 1.10-3.7 0 [facility] Comment on above: Performed By: #### JUAN JUAREZ, HCG #### [facility] [address] [place] [address] [place] [address] Physician Asst: Augustine Don MD Lymphocytes/100 WBC (Bld) 24 % Low 25-45 [facility] Comment on above: Performed By: #### JUAN JUAREZ, HCG #### [facility] [address] [place] [address] Physician Asst: Augustine Don MD MCH (RBC) [Entitic mass] 25.3 pg Normal 25.2-33.5 [facility] Comment on above: Performed By: #### JUAN JUAREZ, HCG #### [address] [place] [phone] Physician Asst: Augustine Don MD MCHC (RBC) [Mass/Vol] 32.2 g/dL Normal 28.4-34.8 [facility] Comment on above: Performed By: #### JUAN JUAREZ, HCG #### [address] [place] [address] Physician Asst: Augustine Don MD MCV (RBC) [Entitic vol] 78.6 fL Low 82.6-102.9 [facility] Comment on above: Performed By: #### JUAN JUAREZ, HCG #### [address] [place], [facility] Physician Asst: Augustine Don MD Monocytes (Bld) [#/Vol] 0.50 10*3/uL Normal 0.10-1.40 [facility] Comment on above: Performed By: #### JUAN JUAREZ, HCG #### [address] [place] [address] Physician Asst: Augustine Don MD Monocytes/100 WBC (Bld) 9 % High 2-[address] [facility] Comment on above: Performed By: #### R JASON CDP, HCG #### [facility] [address] [place], [place] [address]83 Physician Asst: Augustine Don MD Neutrophil (Seg) 64 % Normal 34-64 [facility] Comment on above: Performed By: #### R JASON CDP, HCG #### [facility] [address] [place], [facility] Physician Asst: Augustine Don MD NRBC Automated 0.0 per 100 WBC Normal 0.0 [facility] Comment on above: Performed By: #### R JUAN GOMEZ, HCG #### [facility] [address] [place], [facility] Physician Asst: Augustine Don MD Platelet mean volume (Bld) [Entitic vol] 11.3 fL Normal 8.1-13.5 [facility] Comment on above: Performed By: #### R JUAN GOMEZ, HCG #### [address] [place], [facility] Physician Asst: Augustine Don MD Platelets (Bld) [#/Vol] 263 10*3/uL Normal 138-453 [facility] Comment on above: Performed By: #### JUAN JUAREZ, HCG #### [address] [place], [place] [address] Physician Asst: Augustine Don MD RBC (Bld) [#/Vol] 4.90 10*6/uL Normal 3.95-5.11 [facility] Comment on above: Performed By: #### R JUAN GOMEZ, HCG #### [facility] [address] [place] [address] Physician Asst: Augustine Don MD WBC (Bld) [#/Vol] 5.5 10*3/uL Normal 4.5-13.5 [facility] Comment on above: Performed By: #### R EJEC, CDP, HCG #### [facility] [address] [place], [place] 6252183 Physician Asst: Augustine Don MD Comp Metabolic Profon 2024 Albumin [Mass/Vol] 3.9 g/dL Normal 3.5-5.2 [facility] Comment on above: Performed By: #### L IP, CP #### [facility] [address] [place], [place] 1497383 Physician Asst: Augustine Don MD Albumin/Glob Ratio 1.5 Normal 1.0-2.5 [facility] Comment on above: Performed By: #### L IP, CP #### [facility] [address] [place], [place] 077[address]83 Physician Asst: Augustine Don MD Alkaline Phos 92 U/L Normal 35-104 [facility] Comment on above: Performed By: #### L IP, CP #### [facility] [address] [place], [place] 1946[address] Physician Asst: Augustine Don MD ALT [Catalytic activity/Vol] 26 U/L Normal 10-35 [facility] Comment on above: Performed By: #### L IP, CP #### [facility] [address] [place], [place] 4725383 Physician Asst: Augustine Don MD Anion gap [Moles/Vol] 13 mmol/L Normal 9-16 [facility] Comment on above: Performed By: #### L IP, CP #### [facility] [address] [place], [place] 36[address]83 Physician Asst: Augustine Don MD AST [Catalytic activity/Vol] 27 U/L Normal 10-35 [facility] Comment on above: Performed By: #### L IP, CP #### [facility] [address] [place], [place] 3377283 Physician Asst: Augustine Don MD Bilirubin [Mass/Vol] 0.2 mg/dL Normal 0.00-1.20 [facility] Comment on above: Performed By: #### L IP, CP #### [facility] [address] [place] [address] Physician Asst: Augustine Don MD BUN/CRE Ratio 19 Normal 9-20 [facility] Comment on above: Performed By: #### L IP, CP #### [facility] [address] [place] [address] Physician Asst: Augustine Don MD Calcium [Mass/Vol] 8.3 mg/dL Low 8.6-10.4 [facility] Comment on above: Performed By: #### L IP, CP #### [facility] [address] [place] [address] Physician Asst: Augustine Don MD Chloride [Moles/Vol] 106 mmol/L Normal 98-107 [facility] Comment on above: Performed By: #### L IP, CP #### [facility] [address] [place] [address] [place] [address] Physician Asst: Augustine Don MD CO2 [Moles/Vol] 20 mmol/L Normal 20-31 [facility] Comment on above: Performed By: #### L IP, CP #### [facility] [address] [place] [address] Physician Asst: Augustine Don MD Creatinine [Mass/Vol] 0.7 mg/dL Normal 0.50-0.90 [facility] Comment on above: Performed By: #### L IP, CP #### [facility] [address] [place] [address] Physician Asst: Augustine Don MD GFR/1.73 sq M.predicted among non-blacks MDRD (S/P/Bld) [Vol rate/Area] mL/min/{1.73_m2} Normal >60 [facility] Comment on above: Result Comment: These results [...] Performed By: #### L IP, CP #### [facility] [address] [place] [address] [place] [address] Physician Asst: Augustine Don MD Glucose [Mass/Vol] 77 mg/dL Normal 74-99 [facility] Comment on above: Performed By: #### L IP, CP #### [address] [place], [place] 2942483 Physician Asst: Augustine Don MD Potassium [Moles/Vol] 3.7 mmol/L Normal 3.7-5.3 [facility] Comment on above: Performed By: #### L IP, CP #### [address] [place] [address] Physician Asst: Augustine Don MD Protein [Mass/Vol] 6.5 g/dL Low 6.6-8.7 [facility] Comment on above: Performed By: #### L IP, CP #### [address] [place] [address] Physician Asst: Augustine Don MD Sodium [Moles/Vol] 139 mmol/L Normal 136-145 [facility] Comment on above: Performed By: #### L IP, CP #### [address] [place] [address] Physician Asst: Augustine Don MD Urea nitrogen [Mass/Vol] 13 mg/dL Normal 6-20 [facility] Comment on above: Performed By: #### L IP, CP #### [facility] [address] [place] [address] [place] [address] Physician Asst: Augustine Don MD Comprehensive Met[facility] 06-28-2024 Albumin [Mass/Vol] 3.9 g/dL 3.5 - 5.2 g/dL [facility] Albumin/Globulin [Mass ratio] 1.5 {ratio} 1.0 - 2.5 [facility] ALP [Catalytic activity/Vol] 92 U/L 35 - 104 U/L [facility] ALT [Catalytic activity/Vol] 26 U/L 10 - 35 U/L [facility] Anion gap [Moles/Vol] 13 mmol/L 9 - 16 mmol/L [facility] AST [Catalytic activity/Vol] 27 U/L 10 - 35 U/L [facility] Bilirubin [Mass/Vol] 0.2 mg/dL 0.00 - 1.20 mg/dL [facility] Calcium [Mass/Vol] 8.3 mg/dL Low 8.6 - 10. 4 mg/dL [facility] Chloride [Moles/Vol] 106 mmol/L 98 - 10 7 mmol/L [facility] CO2 [Moles/Vol] 20 mmol/L 20 - 31 mmol/L [facility] Creatinine [Mass/Vol] 0.7 mg/dL 0.50 - 0.90 mg/dL [facility] Mariann, Gabriella Rutledge Rate - PINF [facility] Comment on above: These results are not [...] [Mass/Vol] 77 mg/dL 74 - 99 mg/dL [facility] Interpretation and review of laboratory results Abnormal [facility] Potassium [Moles/Vol] 3.7 mmol/L 3.7 - 5.3 mmol/L [facility] Protein [Mass/Vol] 6.5 g/dL Low 6.6 - 8.7 g/dL [facility] Sodium [Moles/Vol] 139 mmol/L 136 - 145 mmol/L [facility] Urea nitrogen [Mass/Vol] 13 mg/dL 6 - 20 mg/dL [facility] Urea nitrogen/Creatinine [Mass ratio] 19 mg/mg 9 - 20 [facility] HCG Qualitative, Serumon HCG ( test) Ql Positive Abnormal NEGATIVE B on [facility] Comment on above: If HCG results do not concur with clinical observations, additional testing to confirm result is recommended. This test is not labeled for use as a tumor marker. [facility] has confirmed the use of plasma for this test. This has not been cleared or approved by the U.S. Food and Drug Administration. The FDA has determined that such clearance is not necessary. Interpretation and review of laboratory results Abnormal [facility] HCG Screen, Bloodon 06-29-19 25 HCG Screen, Blood Positive Abnormal NEG [facility] Comment on above: Result Comment: If HCG results do not concur with clinical observations, additional testing to confirm result is recommended. This test is not labeled for use as a tumor marker. [facility] has confirmed the use of plasma for this test. This has not been cleared or approved by the U.S. Food and Drug Administration. The FDA has determined that such clearance is not necessary. Performed By: #### R EJEC, CDP, HCG ####[facility] [place] [address] Lab Director: Augustine Don MD HCG, Quanton 06-28-2024 HCG, Quant 37.2 mIU/mL High 0-7 [facility] Comment on above: Result Comment: Non-preg premeno <=5 Postmeno <=8 Male <=3 If HCG results do not concur with clinical observations, additional testing to confirm results is recommended. Performed By: #### B HCG #### [facility] [address] [place] [address] Physician Asst: Augustine Don MD HCG, Quantitative, on 06-28-2024 HCG.beta subunit Qn 37.2 m[IU]/mL High Nish n [facility] Comment on above: Non-preg premeno <=5 Postmeno <=8 Male <=3 If HCG results do not concur with clinical observations, additional testing to confirm results is recommended. Interpretation and review of laboratory results Abnormal [facility] Lipaseon 06-28-2024 Lipase [Catalytic activity/Vol] 17 U/L 13 - 60 U/L [facility] Lipase [Catalytic activity/Vol] 17 U/L Normal [facility] Comment on above: Performed By: #### L IP, CP #### [facility] [address] [place] [address] Physician Asst: Augustine Don MD No Panel Informationon 06-28 [facility] Specimen Rejectionon 025 Reason for rejection Unable to perform testing: Specimen hemolyzed. Normal [facility] Comment on above: Performed By: #### R EJEC, CDP, HCG ####[facility] [place] , [place] [id number] Lab Director: Augustine Don MD Source of sample .BLOOD Normal [facility] Comment on above: Performed By: #### R EJEC, CDP, HCG ####[facility] , [place] [id number] Lab Director: Aguustine Don MD Test ordered cp,lip Normal [facility] Comment on above: Performed By: #### R EJEC, CDP, HCG ####[facility] [place] , [place] [id number] Lab Director: Augustine Don MD CBC WITH AUTO DIFFERENTIALon 06-27-2024 BASOPHILS ABSOLUTE COUNT (10*3/UL) BY AUTOMATED COUNT 0.0 10*3/uL Normal [facility] Comment on above: Performed By: #### C BCA, CMP, THYR, 59652-6, 97377-1, 89005-9 #### [facility] ([id number]) [address] [place] [address] 59007 BASOPHILS RELATIVE PERCENT BY AUTOMATED COUNT 0.9 % Normal [facility] Comment on above: Performed By: #### C BCA, CMP, THYR, 73398-7, 42469-6, 37510-4 #### [facility] ([id number]) [address] [place] [address] 44510 CELLAVISION DIFFERENTIAL TYPE AUTOMATED DIFFERENTIAL [facility] Comment on above: Performed By: #### C BCA, CMP, THYR, 48361-1, 90760-8, 36826-4 #### [facility] ([id number]) [address] [place] [address] 38039 Eosinophils (Bld) [#/Vol] 0.1 10*3/uL Normal [facility] Comment on above: Performed By: #### C BCA, CMP, THYR, 36559-8, 46273-4, 67772-9 #### [facility] ([id number]) [address] [place] [address] 80524 EOSINOPHILS RELATIVE PERCENT BY AUTOMATED COUNT 1.2 % Normal [facility] Comment on above: Performed By: #### C BCA, CMP, THYR, 65760-4, 23813-6, 39287-6 #### [facility] ([id number]) [address] [place] [address] 82045 Erythrocyte distribution width (RBC) [Ratio] 15.8 % High 11.5-15 [facility] Comment on above: Performed By: #### C BCA, CMP, THYR, 70225-7, 16287-2, 92632-5 #### [facility] ([id number]) [address] [place] [address] 29115 Hematocrit (Bld) [Volume fraction] 36.8 % Normal 35-47 [facility] Comment on above: Performed By: #### C BCA, CMP, THYR, 66616-9, 88378-6, 17057-6 #### [facility] ([id number]) [address] [place] [address] 61772 Hemoglobin (Bld) [Mass/Vol] 12.2 g/dL Normal 11.7-15. 5 [facility] Comment on above: Performed By: #### C BCA, CMP, THYR, 57583-2, 51668-3, 62788-0 #### [facility] ([id number]) [address] [place] [address] 46930 LYMPHOCYTES ABSOLUTE COUNT (10*3/UL) BY AUTOMATED COUNT 1.0 10*3/uL Normal [facility] Comment on above: Performed By: #### C BCA, CMP, THYR, 67506-8, 79067-5, 62033-1 #### [facility] ([id number]) [address] [place] [address] 08750 LYMPHOCYTES RELATIVE PERCENT BY AUTOMATED COUNT 22.7 % Normal [facility] Comment on above: Performed By: #### C BCA, CMP, THYR, 88451-3, 79697-4, 16673-4 #### [facility] ([id number]) [address] [place] [address] 75586 MCH (RBC) [Entitic mass] 25.3 pg Low 27-34 [facility] Comment on above: Performed By: #### C BCA, CMP, THYR, 09325-1, 70827-9, 45654-9 #### [facility] ([id number]) [address] [place] [address] 00121 MCHC (RBC) [Mass/Vol] 33.2 g/dL Normal 32-36 [facility] Comment on above: Performed By: #### C BCA, CMP, THYR, 47906-9, 27829-6, 10178-4 #### [facility] ([id number]) [address] [place] [address] 77202 MCV (RBC) [Entitic vol] 76 fL Low 80-100 [facility] Comment on above: Performed By: #### C BCA, CMP, THYR, 74288-5, 00777-9, 39701-7 #### [facility] ([id number]) [address] [place] [address] 12303 MONOCYTES ABSOLUTE COUNT (10*3/UL) BY AUTOMATED COUNT 0.5 10*3/uL Normal [facility] Comment on above: Performed By: #### C BCA, CMP, THYR, 36303-9, 35488-3, 74796-5 #### [facility] ([id number]) [address] [place] [address] 79675 MONOCYTES RELATIVE PERCENT BY AUTOMATED COUNT 12.0 % Normal [facility] Comment on above: Performed By: #### C BCA, CMP, THYR, 77750-9, 80997-5, 38915-5 #### [facility] ([id number]) [address] [place] [address] 08703 NEUTROPHILS ABSOLUTE COUNT BY AUTOMATED COUNT 2.7 10*3/uL Normal [facility] Comment on above: Performed By: #### C BCA, CMP, THYR, 58613-5, 78691-2, 32031-7 #### [facility] ([id number]) [address] [place] [address] 69197 NEUTROPHILS RELATIVE PERCENT BY AUTOMATED COUNT 63.2 % Normal [facility] Comment on above: Performed By: #### C BCA, CMP, THYR, 31695-0, 31859-3, 37164-7 #### [facility] ([id number]) [address] [place] [address] 23770 Platelet mean volume (Bld) [Entitic vol] 9.6 fL Normal 7-12 [facility] Comment on above: Performed By: #### C BCA, CMP, THYR, 27491-7, 21644-9, 28765-1 #### [facility] ([id number]) [address] [place] [address] 52917 Platelets (Bld) [#/Vol] 253 10*3/uL Normal 150-450 [facility] Comment on above: Performed By: #### C BCA, CMP, THYR, 84717-4, 39907-2, 89470-2 #### [facility] ([id number]) [address] [place] [address] 58582 RBC COUNT 4.83 X10E12/L Normal 3.8-5.2 [facility] Comment on above: Performed By: #### C BCA, CMP, THYR, 28163-1, 33667-1, 43315-0 #### [facility] ([id number]) [address] [place] [address] 44073 WBC (Bld) [#/Vol] 4.3 10*3/uL Normal 4-11 [facility] Comment on above: Performed By: #### C BCA, CMP, THYR, 30613-2, 04354-1, 62925-2 #### [facility] ([id number]) [address] [place] [address] 76080 COMPREHENSIVE METABOLIC PANE Grupo 06-27-2024 Albumin [Mass/Vol] 4.2 g/dL Normal 3.2-5.3 [facility] Comment on above: Performed By: #### C BCA, CMP, THYR, 45449-8, 20483-0, 59131-4 #### [facility] ([id number]) [address] [place] [address] 93743 ALP [Catalytic activity/Vol] 97 U/L Normal 39-130 [facility] Comment on above: Performed By: #### C BCA, CMP, THYR, 08589-6, 45542-7, 49303-0 #### [facility] ([id number]) [address] [place] [address] 30778 ALT [Catalytic activity/Vol] 28 U/L Normal <=31 [facility] Comment on above: Performed By: #### C BCA, CMP, THYR, 94617-0, 86424-6, 35893-3 #### [facility] ([id number]) [address] [place] [address] 73635 Anion gap [Moles/Vol] 8 mmol/L Normal 5-15 [facility] Comment on above: Performed By: #### C BCA, CMP, THYR, 00966-5, 09716-0, 80040-9 #### [facility] ([id number]) [address] [place] [address] 17030 AST [Catalytic activity/Vol] 27 U/L Normal <=41 [facility] Comment on above: Performed By: #### C BCA, CMP, THYR, 89178-5, 74114-8, 81746-5 #### [facility] ([id number]) [address] [place] [address] 20157 Bilirubin [Mass/Vol] 0.6 mg/dL Normal 0.3-1.2 [facility] Comment on above: Performed By: #### C BCA, CMP, THYR, 25605-0, 45874-7, 05061-8 #### [facility] ([id number]) [address] [place] [address] 28568 Calcium [Mass/Vol] 9.2 mg/dL Normal 8.5-10.5 [facility] Comment on above: Performed By: #### C BCA, CMP, THYR, 59948-5, 21831-9, 25829-6 #### [facility] ([id number]) [address] [place] [address] 07089 Chloride [Moles/Vol] 104 mmol/L Normal 98-109 [facility] Comment on above: Performed By: #### C BCA, CMP, THYR, , 79965-6, 08398-9 #### [facility] ([id number]) [address] [place] [address] 47045 CO2 [Moles/Vol] 23 mmol/L Normal 22-32 [facility] Comment on above: Performed By: #### C BCA, CMP, THYR, , 59192-8, 12171-3 #### [facility] ([id number]) [address] [place] [address] 20458 Creatinine [Mass/Vol] 0.64 mg/dL Normal 0.40-1.00 [facility] Comment on above: Result Comment: METH OD TRACEABLE TO IDMS STANDARD Performed By: #### C BCA, CMP, THYR, , 62367-9, 77507-4 #### [facility] ([id number]) [address] [place] [address] 73219 EGFR (CKD-EPI) NON-RACE DEPENDENT >^90 Normal >=60 [facility] Comment on above: Result Comment: eGFR not reported due to non-numeric value for Creatinine. Reported eGFR is based on the CKD-EPI 2021 equation that does not use a race coefficient. Performed By: #### C BCA, CMP, THYR, , 29887-7, 93515-9 #### [facility] ([id number]) [address] [place] [address] 25591 Glucose [Mass/Vol] 97 mg/dL Normal 65-99 [facility] Comment on above: Performed By: #### C BCA, CMP, THYR, , 82064-9, 24136-8 #### [facility] ([id number]) [address] [place] [address] 72764 Potassium [Moles/Vol] 4.1 mmol/L Normal 3.5-5.0 [facility] Comment on above: Performed By: #### C BCA, CMP, THYR, 01971-1, 80901-6, 52666-4 #### [facility] ([id number]) [address] [place] [address] 52372 Protein [Mass/Vol] 7.9 g/dL Normal 6.0-8.0 [facility] Comment on above: Performed By: #### C BCA, CMP, THYR, 85380-6, 57803-0, 41025-5 #### [facility] ([id number]) [address] [place] [address] 74006 Sodium [Moles/Vol] 135 mmol/L Normal 134-146 [facility] Comment on above: Performed By: #### C BCA, CMP, THYR, 98470-8, 08007-2, 51516-3 #### [facility] ([id number]) [address] [place] [address] 81292 Urea nitrogen [Mass/Vol] 13 mg/dL Normal 5-23 [facility] Comment on above: Performed By: #### C BCA, CMP, THYR, 75635-1, 23833-8, 71335-6 #### [facility] ([id number]) [address] [place] [address] 33831 TROP I, HIGH SENSITIVITY 1 H OURon 06-27-2024 TROPONIN I, HIGH SENSITIVITY <^2 Normal <16 [facility] Comment on above: Performed By: #### C BCA, CMP, THYR, 10128-4, 85948-5, 17827-1 #### [facility] ([id number]) [address] [place] [address] 92169 BASIC METABOLIC PANLon 04-13 Anion gap [Moles/Vol] 8 mmol/L Normal 5-15 [facility] Comment on above: Performed By: #### C BCA, CMP, THYR, 57478-6, 92207-4, 76583-7 #### [facility] ([id number]) [address] [place] [address] 74201 Calcium [Mass/Vol] 9.3 mg/dL Normal 8.5-10.5 [facility] Comment on above: Performed By: #### C BCA, CMP, THYR, 39087-4, 17333-0, 55342-6 #### [facility] ([id number]) [address] [place] [address] 24790 Chloride [Moles/Vol] 107 mmol/L Normal 98-109 [facility] Comment on above: Performed By: #### C BCA, CMP, THYR, , 93647-5, 91039-0 #### [facility] ([id number]) [address] [place] [address] 73183 CO2 [Moles/Vol] 24 mmol/L Normal 22-32 [facility] Comment on above: Performed By: #### C BCA, CMP, THYR, , 69039-8, 26199-6 #### [facility] ([id number]) [address] [place] [address] 46249 Creatinine [Mass/Vol] 0.56 mg/dL Normal 0.40-1.00 [facility] Comment on above: Result Comment: METH OD TRACEABLE TO IDMS STANDARD Performed By: #### C BCA, CMP, THYR, 35693-5, 34696-8, 89525-2 #### [facility] ([id number]) [address] [place] [address] 23571 eGFR (CKD-EPI) NON-RACE DEPENDENT >90 Normal >59 [facility] Comment on above: Result Comment: Reported eGFR is based on the CKD-EPI 2020 equation that does not use a race coefficient. Performed By: #### C BCA, CMP, THYR, 39027-9, 51744-1, 52225-3 #### [facility] ([id number]) [address] [place] [address] 24974 Glucose [Mass/Vol] 99 mg/dL Normal 65-99 [facility] Comment on above: Performed By: #### C BCA, CMP, THYR, , 61424-9, 82260-1 #### [facility] ([id number]) [address] [place] [address] 76722 Potassium [Moles/Vol] 3.3 mmol/L Low 3.5-5.0 [facility] Comment on above: Performed By: #### C BCA, CMP, THYR, , 48846-2, 32510-4 #### [facility] ([id number]) [address] [place] [address] 09903 Sodium [Moles/Vol] 139 mmol/L Normal 134-146 [facility] Comment on above: Performed By: #### C BCA, CMP, THYR, , 44444-4, 98422-9 #### [facility] ([id number]) [address] [place] [address] 08020 Urea nitrogen [Mass/Vol] 14 mg/dL Normal 5-23 [facility] Comment on above: Performed By: #### C BCA, CMP, THYR, , 05466-6, 43734-2 #### [facility] ([id number]) [address] [place] [address] 27042 CBC AND AUTO DIFFon 04-13-19 25 ABSOLUTE BASOPHIL 0.1 X10E9/L Normal 0.0-0.2 [facility] Comment on above: Performed By: #### C BCA, CMP, THYR, 31563-7, 91069-0, 45909-5 #### [facility] ([id number]) [address] [place] [address] 28468 ABSOLUTE NEUTROPHIL 3.1 X10E9/L Normal 1.5-6.6 [facility] Comment on above: Performed By: #### C BCA, CMP, THYR, 30076-7, 07118-1, 45249-9 #### [facility] ([id number]) [address] [place] [address] 88466 Basophils/100 WBC (Bld) 1.4 % Normal [facility] Comment on above: Performed By: #### C BCA, CMP, THYR, 83653-2, 84306-5, 67743-7 #### [facility] ([id number]) [address] [place] [address] 35505 Eosinophils (Bld) [#/Vol] 0.1 10*3/uL Normal 0.0-0.4 [facility] Comment on above: Performed By: #### C BCA, CMP, THYR, 55389-7, 76176-3, 74020-7 #### [facility] ([id number]) [address] [place] [address] 67200 Eosinophils/100 WBC (Bld) 1.9 % Normal [facility] Comment on above: Performed By: #### C BCA, CMP, THYR, 16222-6, 03672-6, 27004-6 #### [facility] ([id number]) [address] [place] [address] 87257 Erythrocyte distribution width (RBC) [Ratio] 15.7 % High 11.5-15.0 [facility] Comment on above: Performed By: #### C BCA, CMP, THYR, 06517-2, 71645-6, 51588-6 #### [facility] ([id number]) [address] [place] [address] 42435 Hematocrit (Bld) [Volume fraction] 36.0 % Normal 35-47 [facility] Comment on above: Performed By: #### C BCA, CMP, THYR, 38761-3, 64828-1, 25558-9 #### [facility] ([id number]) [address] [place] [address] 13374 Hemoglobin (Bld) [Mass/Vol] 11.8 g/dL Normal 11.7-15. 5 [facility] Comment on above: Performed By: #### C BCA, CMP, THYR, 31100-2, 57987-8, 97402-9 #### [facility] ([id number]) [address] [place] [address] 39638 Lymphocytes (Bld) [#/Vol] 2.6 10*3/uL Normal 1.0-3.5 [facility] Comment on above: Performed By: #### C BCA, CMP, THYR, 53992-8, 03949-9, 67770-7 #### [facility] ([id number]) [address] [place] [address] 03354 Lymphocytes/100 WBC (Bld) 38.6 % Normal [facility] Comment on above: Performed By: #### C BCA, CMP, THYR, 71887-1, 03418-0, 23283-4 #### [facility] ([id number]) [address] [place] [address] 05457 MCH (RBC) [Entitic mass] 24.8 pg Low 27-34 [facility] Comment on above: Performed By: #### C BCA, CMP, THYR, 88357-5, 07298-9, 53894-6 #### [facility] ([id number]) [address] [place] [address] 61768 MCHC (RBC) [Mass/Vol] 32.7 g/dL Normal 32-36 [facility] Comment on above: Performed By: #### C BCA, CMP, THYR, 69287-0, 73338-1, 30745-7 #### [facility] ([id number]) [address] [place] [address] 79242 MCV (RBC) [Entitic vol] 76 fL Low 80-100 [facility] Comment on above: Performed By: #### C BCA, CMP, THYR, 24440-9, 71586-9, 66845-9 #### [facility] ([id number]) [address] [place] [address] 42478 Monocytes (Bld) [#/Vol] 0.7 10*3/uL Normal 0-0.9 [facility] Comment on above: Performed By: #### C BCA, CMP, THYR, 57690-8, 99785-1, 74167-6 #### [facility] ([id number]) [address] [place] [address] 65663 Monocytes/100 WBC (Bld) 11.0 % Normal [facility] Comment on above: Performed By: #### C BCA, CMP, THYR, 21958-9, 00748-8, 11586-8 #### [facility] ([id number]) [address] [place] [address] 69158 Neutrophils/100 WBC (Bld) 47.1 % Normal [facility] Comment on above: Performed By: #### C BCA, CMP, THYR, 99352-2, 69297-3, 10542-1 #### [facility] ([id number]) [address] [place] [address] 00683 Platelet mean volume (Bld) [Entitic vol] 10.0 fL Normal 7-12 [facility] Comment on above: Performed By: #### C BCA, CMP, THYR, 44517-3, 31073-8, 47370-4 #### [facility] ([id number]) [address] [place] [address] 03175 Platelets (Bld) [#/Vol] 233 10*3/uL Normal 150-450 [facility] Comment on above: Performed By: #### C BCA, CMP, THYR, 07522-8, 89917-5, 37644-8 #### [facility] ([id number]) [address] [place] [address] 30951 RBC COUNT 4.76 X10E12/L Normal 3.80-5.20 [facility] Comment on above: Performed By: #### C BCA, CMP, THYR, 35260-1, 16974-3, 63116-5 #### [facility] ([id number]) [address] [place] [address] 00400 WBC (Bld) [#/Vol] 6.6 10*3/uL Normal 4.0-11.0 [facility] Comment on above: Performed By: #### C BCA, CMP, THYR, , 15620-4, 50870-2 #### [facility] ([id number]) [address] [place] [address] 79083 Fibrin D-dimer DDU (PPP) [Ma ss/Vol]on 04-13-2024 D DIMER 177 ng/mL DDU Normal <255 [facility] Comment on above: Result Comment: Results <255 ng/mL DDU: The presence of a VTE can safely be excluded with a negative D-Dimer result and Wells score. A negative result doesn't exclude the possibility of DIC. The test be repeated along with other diagnostic tests if the patient's symptoms persist or worsen. [email or web address] Performed By: #### C BCA, CMP, THYR, 30506-2, 42998-7, 38312-7 #### [facility] ([id number]) [address] [place] [address] 33267 HCG ( test) Ql (U)o n 04-13-2024 Beta HCG ( test) Ql (U) Negative Normal NEG [facility] Comment on above: Performed By: #### C BCA, CMP, THYR, 09497-3, 18760-8, 23250-4 #### [facility] ([id number]) [address] [facility], [place] [address] MAGNESIUMon 04-13-2024 Magnesium [Mass/Vol] 2.3 mg/dL Normal 1.8-2.6 [facility] Comment on above: Performed By: #### C BCA, CMP, THYR, 07959-5, 57385-2, 32733-5 #### [facility] ([id number]) [address] [place] [address] SARS/FLU A+B/RSV by NAAT/Mol ecularon 04-13-2024 SARS/FLU A+B/RSV by NAAT/Molecular FLU A [...] operators who are performing tests using either [employer] or Pharm[employer]ink systems and is limited to laboratories that [...] specimen repeat. Fact Sheet for Healthcare Providers: https://www.BigRoad.[email or web address] v/[place] WaVE/324218/maggie nload Fact Sheet for Patients: https://www.BigRoad.StorkUp.com v/media/545739/maggie nload Normal [facility] Comment on above: Performed By: #### C BCA, CMP, THYR, 65035-8, 95718-3, 42278-8 #### [facility] ([id number]) [address] [place] [id number] URN MACROSCOPIC NURon 2024 BILIRUBIN COLEEN Negative Normal NEG [facility] Comment on above: Performed By: #### C BCA, CMP, THYR, 76758-4, 28282-7, 54418-1 #### [facility] ([id number]) [address] [place] [address] BLOOD/HGB COLEEN Negative Normal NEG [facility] Comment on above: Performed By: #### C BCA, CMP, THYR, 90539-1, 77724-8, 51774-7 #### [facility] ([id number]) [address] [place] [address] 18968 GLUCOSE COLEEN Negative Normal NEG [facility] Comment on above: Performed By: #### C BCA, CMP, THYR, 67273-8, 99166-9, 50457-0 #### [facility] ([id number]) [address] [place] [address] KETONES COLEEN Negative Normal NEG [facility] Comment on above: Performed By: #### C BCA, CMP, THYR, 55372-5, 08332-5, 27328-9 #### [facility] ([id number]) [address] [place] [address] 93956 LEUKOCYTE ESTERASE COLEEN Negative Normal NEG [facility] Comment on above: Performed By: #### C BCA, CMP, THYR, 77265-0, 59104-6, 52158-8 #### [facility] ([id number]) [address] [place] [address] 73507 NITRITE COLEEN Negative Normal NEG [facility] Comment on above: Performed By: #### C BCA, CMP, THYR, 30876-3, 25857-0, 51458-5 #### [facility] ([id number]) [address] [place] [address] 15250 PH COLEEN 6.5 Normal 5.0-8.5 [facility] Comment on above: Performed By: #### C BCA, CMP, THYR, 76587-5, 41215-8, 82339-4 #### [facility] ([id number]) [address] [place] [address] 41286 PROTEIN COLEEN Negative Normal NEG [facility] Comment on above: Performed By: #### C BCA, CMP, THYR, 52176-8, 15926-4, 21604-4 #### [facility] ([id number]) [address] [place] [address] 86859 SPECIFIC GRAVITY COLEEN 1.025 Normal 1.003-1 .03 5 [facility] Comment on above: Performed By: #### C BCA, CMP, THYR, 57567-3, 66992-8, 52063-3 #### [facility] ([id number]) [address] [place] [address] UROBILINOGEN COLEEN 0.2 eu/dL Normal <1.1 [facility] Comment on above: Performed By: #### C BCA, CMP, THYR, 07065-5, 39407-9, 76264-6 #### [facility] ([id number]) [address] [place] [address] XR CHEST 1 VWon 04-13-2024 XR CHEST 1 VW XR CHEST 1 VW Single view chest History: Difficulty breathing, shortness of breath Comparison: 12/07/2023 Impression: No acute pulmonary process. No pneumothorax or pleural effusion. Nonenlarged heart. 09 Finalized by Ankur Wilkerson MD on 04/13/2024 2:50 AM Normal [facility] RAPID STREP SCR NURSINGon S. pyogenes Ag EIA Ql (Throat) Negative Normal NEG [facility] Comment on above: Performed By: #### 6 556-5 #### [facility] ([id number]) [address] [place] [address] SARS/FLU A+B/RSV by NAAT/Mol ecularon 02-17-2024 SARS/FLU [...] operators who are performing tests using either Peg Bandwidth DX or Pharmalink systems and is limited to laboratories that [...] specimen repeat. Fact Sheet for Healthcare Providers: https://www.fda.StorkUp.com v/media/363535/maggie nload Fact Sheet for Patients: https://www.BigRoad.StorkUp.com v/media/987484/maggie nload Normal [facility] Comment on above: Performed By: #### C BCA, CMP, THYR, 37795-7, 24099-4, 81903-0 #### [facility] ([id number]) [address] [place] [address] 35422 POCT EKGOrdered By: Heather Simmons on 12-29-2023 [facility] CBC AND AUTO DIFFon 12-07-19 24 ABSOLUTE BASOPHIL 0.1 X10E9/L Normal 0.0-0.2 [facility] Comment on above: Performed By: #### C BCA, CMP, THYR, 37347-5, 02373-9, 08101-4 #### [facility] ([id number]) [address] [place] [address] 57764 ABSOLUTE NEUTROPHIL 5.7 X10E9/L Normal 1.5-6.6 [facility] Comment on above: Performed By: #### C BCA, CMP, THYR, 56259-5, 40530-4, 26858-0 #### [facility] ([id number]) [address] [place] [address] 85215 Basophils/100 WBC (Bld) 0.6 % Normal [facility] Comment on above: Performed By: #### C BCA, CMP, THYR, 55494-9, 33441-3, 81306-0 #### [facility] ([id number]) [address] [place] [address] 49941 Eosinophils (Bld) [#/Vol] 0.1 10*3/uL Normal 0.0-0.4 [facility] Comment on above: Performed By: #### C BCA, CMP, THYR, 23171-9, 69219-9, 82096-2 #### [facility] ([id number]) [address] [place] [address] 53502 Eosinophils/100 WBC (Bld) 1.3 % Normal [facility] Comment on above: Performed By: #### C BCA, CMP, THYR, 56520-1, 54700-4, 99955-7 #### [facility] ([id number]) [address] [place] [address] 40191 Erythrocyte distribution width (RBC) [Ratio] 15.3 % High 11.5-15.0 [facility] Comment on above: Performed By: #### C BCA, CMP, THYR, 38508-9, 28008-0, 18025-9 #### [facility] ([id number]) [address] [place] [address] 30263 Hematocrit (Bld) [Volume fraction] 35.0 % Normal 35-47 [facility] Comment on above: Performed By: #### C BCA, CMP, THYR, 43850-1, 92775-4, 01708-6 #### [facility] ([id number]) [address] [place] [address] 08368 Hemoglobin (Bld) [Mass/Vol] 11.4 g/dL Low 11.7-15. 5 [facility] Comment on above: Performed By: #### C BCA, CMP, THYR, 53960-1, 63075-4, 97323-9 #### [facility] ([id number]) [address] [place] [address] 38945 Lymphocytes (Bld) [#/Vol] 2.1 10*3/uL Normal 1.0-3.5 [facility] Comment on above: Performed By: #### C BCA, CMP, THYR, 33042-4, 89864-5, 97869-9 #### [facility] ([id number]) [address] [place] [address] 50248 Lymphocytes/100 WBC (Bld) 24.8 % Normal [facility] Comment on above: Performed By: #### C BCA, CMP, THYR, , 82217-4, 63973-7 #### [facility] ([id number]) [address] [place] [address] 40867 MCH (RBC) [Entitic mass] 24.3 pg Low 27-34 [facility] Comment on above: Performed By: #### C BCA, CMP, THYR, , 58487-3, 15302-3 #### [facility] ([id number]) [address] [place] [address] 52267 MCHC (RBC) [Mass/Vol] 32.7 g/dL Normal 32-36 [facility] Comment on above: Performed By: #### C BCA, CMP, THYR, 58813-3, 30183-0, 07910-6 #### [facility] ([id number]) [address] [place] [address] 81763 MCV (RBC) [Entitic vol] 74 fL Low 80-100 [facility] Comment on above: Performed By: #### C BCA, CMP, THYR, 00155-9, 69214-1, 51647-6 #### [facility] ([id number]) [address] [place] [address] 47843 Monocytes (Bld) [#/Vol] 0.6 10*3/uL Normal 0-0.9 [facility] Comment on above: Performed By: #### C BCA, CMP, THYR, 56622-1, 16559-0, 85783-3 #### [facility] ([id number]) [address] [place] [address] 34661 Monocytes/100 WBC (Bld) 6.7 % Normal [facility] Comment on above: Performed By: #### C BCA, CMP, THYR, 20282-6, 17543-3, 86353-4 #### [facility] ([id number]) [address] [place] [address] 64989 Neutrophils/100 WBC (Bld) 66.6 % Normal [facility] Comment on above: Performed By: #### C BCA, CMP, THYR, 95122-5, 86723-4, 84696-3 #### [facility] ([id number]) [address] [place] [address] 53929 Platelet mean volume (Bld) [Entitic vol] 9.1 fL Normal 7-12 [facility] Comment on above: Performed By: #### C BCA, CMP, THYR, 06996-6, 95401-0, 35648-6 #### [facility] ([id number]) [address] [place] [address] 65909 Platelets (Bld) [#/Vol] 276 10*3/uL Normal 150-450 [facility] Comment on above: Performed By: #### C BCA, CMP, THYR, 10621-0, 65202-7, 45760-6 #### [facility] ([id number]) [address] [place] [address] 80138 RBC COUNT 4.71 X10E12/L Normal 3.80-5.20 [facility] Comment on above: Performed By: #### C BCA, CMP, THYR, 25609-6, 05863-0, 54840-6 #### [facility] ([id number]) [address] [place] [address] 18893 WBC (Bld) [#/Vol] 8.5 10*3/uL Normal 4.0-11.0 [facility] Comment on above: Performed By: #### C BCA, CMP, THYR, 17786-8, 00355-3, 84476-5 #### [facility] ([id number]) [address] [place] [address] [facility] 12-07-2023 Albumin [Mass/Vol] 4.3 g/dL Normal 3.2-5.3 [facility] Comment on above: Performed By: #### C BCA, CMP, THYR, 93972-2, 08388-9, 85193-8 #### [facility] ([id number]) [address] [place] [address] 60174 ALP [Catalytic activity/Vol] 83 U/L Normal 39-130 [facility] Comment on above: Performed By: #### C BCA, CMP, THYR, 32775-6, 80908-3, 04853-6 #### [facility] ([id number]) [address] [place] [address] 33684 ALT [Catalytic activity/Vol] 21 U/L Normal 0-31 [facility] Comment on above: Performed By: #### C BCA, CMP, THYR, 47386-9, 54199-9, 86951-5 #### [facility] ([id number]) [address] [place] [address] 52608 Anion gap [Moles/Vol] 9 mmol/L Normal 5-15 [facility] Comment on above: Performed By: #### C BCA, CMP, THYR, 48501-9, 19984-9, 22643-9 #### [facility] ([id number]) [address] [place] [address] 15861 AST [Catalytic activity/Vol] 16 U/L Normal 0-41 [facility] Comment on above: Performed By: #### C BCA, CMP, THYR, 63967-6, 21726-1, 22837-8 #### [facility] ([id number]) [address] [place] [address] 32246 Bilirubin [Mass/Vol] 0.4 mg/dL Normal 0.3-1.2 [facility] Comment on above: Performed By: #### C BCA, CMP, THYR, 76463-6, 69526-2, 63053-2 #### [facility] ([id number]) [address] [place] [address] 86471 Calcium [Mass/Vol] 9.2 mg/dL Normal 8.5-10.5 [facility] Comment on above: Performed By: #### C BCA, CMP, THYR, 86316-0, 35354-3, 19759-3 #### [facility] ([id number]) [address] [place] [address] 22016 Chloride [Moles/Vol] 105 mmol/L Normal 98-109 [facility] Comment on above: Performed By: #### C BCA, CMP, THYR, 52220-0, 62309-1, 88547-1 #### [facility] ([id number]) [address] [place] [address] 55684 CO2 [Moles/Vol] 22 mmol/L Normal 22-32 [facility] Comment on above: Performed By: #### C BCA, CMP, THYR, 54325-3, 18628-1, 87868-3 #### [facility] ([id number]) [address] [place] [address] 86976 Creatinine [Mass/Vol] 0.60 mg/dL Normal 0.40-1.00 [facility] Comment on above: Result Comment: METH OD TRACEABLE TO IDMS STANDARD Performed By: #### C BCA, CMP, THYR, 77319-7, 28319-9, 03389-6 #### [facility] ([id number]) [address] [place] [address] 50554 eGFR (CKD-EPI) NON-RACE DEPENDENT >90 Normal >59 [facility] Comment on above: Result Comment: Reported eGFR is based on the CKD-EPI 2020 equation that does not use a race coefficient. Performed By: #### C BCA, CMP, THYR, 75702-3, 16215-4, 09378-1 #### [facility] ([id number]) [address] [place] [address] 35673 Glucose [Mass/Vol] 91 mg/dL Normal 65-99 [facility] Comment on above: Performed By: #### C BCA, CMP, THYR, 87098-8, 15197-7, 47519-5 #### [facility] ([id number]) [address] [place] [address] 86511 Potassium [Moles/Vol] 3.8 mmol/L Normal 3.5-5.0 [facility] Comment on above: Performed By: #### C BCA, CMP, THYR, 80414-6, 30122-0, 82709-5 #### [facility] ([id number]) [address] [place] [address] 55717 Protein [Mass/Vol] 7.6 g/dL Normal 6.0-8.0 [facility] Comment on above: Performed By: #### C BCA, CMP, THYR, 68509-8, 24275-1, 24304-3 #### [facility] ([id number]) [address] [place] [address] 79044 Sodium [Moles/Vol] 136 mmol/L Normal 134-146 [facility] Comment on above: Performed By: #### C BCA, CMP, THYR, 46087-3, 97391-5, 20137-4 #### [facility] ([id number]) [address] [place] [address] 91832 Urea nitrogen [Mass/Vol] 16 mg/dL Normal 5-23 [facility] Comment on above: Performed By: #### C BCA, CMP, THYR, 42060-0, 64889-6, 99383-2 #### [facility] ([id number]) [address] [place] [address] 45830 Fibrin D-dimer DDU (PPP) [Ma ss/Vol]on 12-07-2023 D DIMER 209 ng/mL DDU Normal <255 [facility] Comment on above: Result Comment: Results <255 ng/mL DDU: The presence of a VTE can safely be excluded with a negative D-Dimer result and Wells score. A negative result doesn't exclude the possibility of DIC. The test be repeated along with other diagnostic tests if the patient's symptoms persist or worsen. [email or web address] Performed By: #### C BCA, CMP, THYR, 19187-5, 81370-1, 09352-5 #### [facility] ([id number]) [address] [place] [address] 09472 HCG ( test) Ql (U)o n 12-07-2023 Beta HCG ( test) Ql (U) Negative Normal NEG [facility] Comment on above: Performed By: #### 2 106-3 #### [facility] ([id number]) [address] [place] [address] 97211 MAGNESIUMon 12-07-2023 Magnesium [Mass/Vol] 2.2 mg/dL Normal 1.8-2.6 [facility] Comment on above: Performed By: #### C BCA, CMP, THYR, 32545-4, 55824-6, 39709-3 #### [facility] ([id number]) [address] [place] [address] 48222 THYROID PROFILEon 12-07-2023 Free T4 [Mass/Vol] 0.81 ng/dL Normal 0.61-1.60 [facility] Comment on above: Performed By: #### C BCA, CMP, THYR, 85585-8, 65083-1, 78882-2 #### [facility] ([id number]) [address] [place] [address] 39917 TSH 0.84 uIU/mL Normal 0.49-4.67 [facility] Comment on above: Performed By: #### C BCA, CMP, THYR, , 43294-3, 09682-1 #### [facility] ([id number]) [address] [place] [address] 30042 Troponin I.cardiac High sens itivity method [Mass/Vol]on 12-07-2023 TROPONIN I, HIGH SENSITIVITY <2 Normal <16 [facility] Comment on above: Performed By: #### C BCA, CMP, THYR, 63246-8, 75527-9, 10702-0 #### [facility] ([id number]) [address] [place] [address] 82529 URN MACROSCOPIC NURon 2023 BILIRUBIN COLEEN Negative Normal NEG [facility] Comment on above: Performed By: #### N UM #### [facility] ([id number]) [address] [place] [address] 89722 BLOOD/HGB COLEEN Negative Normal NEG [facility] Comment on above: Performed By: #### N UM #### [facility] ([id number]) [address] [place] [address] [place] [address] GLUCOSE COLEEN Negative Normal NEG [facility] Comment on above: Performed By: #### N UM #### [facility] ([id number]) [address] [place] [address] [place] [address] KETONES COLEEN Negative Normal NEG [facility] Comment on above: Performed By: #### N UM #### [facility] ([id number]) [address] [place] [address] 25793 LEUKOCYTE ESTERASE COLEEN Negative Normal NEG [facility] Comment on above: Performed By: #### N UM #### [facility] ([id number]) [address] [place] [address] [place] [address] NITRITE COLEEN Negative Normal NEG [facility] Comment on above: Performed By: #### N UM #### [facility] ([id number]) [address] [place] [address] 41837 PH COLEEN 5.5 Normal 5.0-8.5 [facility] Comment on above: Performed By: #### N UM #### [facility] ([id number]) [address] [place] [address] [place] [address] PROTEIN COLEEN Negative Normal NEG [facility] Comment on above: Performed By: #### N UM #### [facility] ([id number]) [address] [place] [address] [place] [address] SPECIFIC GRAVITY COLEEN >=1.030 Normal 1.003-[address] [place] [address] Comment on above: Performed By: #### N UM #### [facility] ([id number]) [address] [place] [address] [place] [address] UROBILINOGEN COLEEN 0.2 eu/dL Normal <1.1 [facility] Comment on above: Performed By: #### N #### [facility] ([id number]) [address] [facility] [place] [place] [address] XR CHEST 1 VWon 12-07-2023 XR CHEST [...] Ayers MD on 12/07/2023 1:31 PM Normal [facility] Basic Metabolic Panelon 06-2 Anion gap [Moles/Vol] 11 mmol/L 9 - 17 mmol/L [facility] Calcium [Mass/Vol] 9.5 mg/dL 8.6 - 10. 4 mg/dL [facility] Chloride [Moles/Vol] 100 mmol/L 98 - 10 7 mmol/L [facility] CO2 [Moles/Vol] 23 mmol/L 20 - 31 mmol/L [facility] Creatinine [Mass/Vol] 0.5 mg/dL 0.5 - 0.9 mg/dL [facility] Est, Glom Filt Rate - PINF [facility] Comment on above: These results are not [...] [Mass/Vol] 91 mg/dL 70 - 99 mg/dL [facility] Interpretation and review of laboratory results Abnormal [facility] Potassium [Moles/Vol] 3.7 mmol/L 3.7 - 5.3 mmol/L [facility] Sodium [Moles/Vol] 134 mmol/L Low 135 - 144 mmol/L [facility] Urea nitrogen [Mass/Vol] 14 mg/dL 6 - 20 mg/dL [facility] Urea nitrogen/Creatinine [Mass ratio] 28 mg/mg High 9 - 20 [facility] Basic Metabolic Profon 08-22 Anion gap [Moles/Vol] 11 mmol/L Normal 9-17 [facility] Comment on above: Performed By: #### C DP TROPI, BMP #### [facility] [address] [place] [address] Physician Asst: Augustine Don MD BUN/CRE Ratio 28 High 9-20 [facility] Comment on above: Performed By: #### C DP TROPI, BMP #### [facility] [address] [place] [address] Physician Asst: Augustine Don MD Calcium [Mass/Vol] 9.5 mg/dL Normal 8.6-10.4 [facility] Comment on above: Performed By: #### C DP TROPI, BMP #### [facility] [address] [place], [place] [address] Physician Asst: Augustine Don MD Chloride [Moles/Vol] 100 mmol/L Normal 98-107 [facility] Comment on above: Performed By: #### C DP TROPI, BMP #### [facility] [address] [place] [address] Physician Asst: Augustine Don MD CO2 [Moles/Vol] 23 mmol/L Normal 20-31 [facility] Comment on above: Performed By: #### C DP, TROPI, BMP #### [facility] [address] [place] [address] Physician Asst: Augustine Don MD Creatinine [Mass/Vol] 0.5 mg/dL Normal 0.5-0.9 [facility] Comment on above: Performed By: #### C JUS BENTON BMP #### [facility] [address] [place] [address] Physician Asst: Augustine Don MD GFR/1.73 sq M.predicted among non-blacks MDRD (S/P/Bld) [Vol rate/Area] mL/min/{1.73_m2} Normal >60 [facility] Comment on above: Result Comment: These results [...] renal tubular secretion. Performed By: #### C YVON BENTONI, BMP #### [facility] [address] [place] [address] Physician Asst: Augustine Don MD Glucose [Mass/Vol] 91 mg/dL Normal 70-99 [facility] Comment on above: Performed By: #### C JUS BENTON BMP #### [facility] [address] [place] [address] Physician Asst: Augustine Don MD Potassium [Moles/Vol] 3.7 mmol/L Normal 3.7-5.3 [facility] Comment on above: Performed By: #### C JUS BENTON, BMP #### [address] [place] [address] Physician Asst: Augustine Don MD Sodium [Moles/Vol] 134 mmol/L Low 135-144 [facility] Comment on above: Performed By: #### C YVON BENTONI, BMP #### [facility] [address] [place] [address] Physician Asst: Augustine Don MD Urea nitrogen [Mass/Vol] 14 mg/dL Normal 6-20 [facility] Comment on above: Performed By: #### C SERENITY, ESVIN LUU #### [facility] [address] [place] [address] Physician Asst: Augustine Don MD CBC with Auto Differentialon 08-23-2023 Basophils (Bld) [#/Vol] 0.06 10*3/uL [facility] Basophils/100 WBC (Bld) 1 % 0 - 2 % [facility] Eosinophils (Bld) [#/Vol] 0.14 10*3/uL [facility] Eosinophils/100 WBC (Bld) 2 % 1 - 4 % [facility] Erythrocyte distribution width (RBC) [Ratio] 14.0 % 11.8 - 14.4 % [facility] Hematocrit (Bld) [Volume fraction] 37.6 % 36.3 - 47.1 % [facility] Hemoglobin (Bld) [Mass/Vol] 11.9 g/dL 11.9 - 15.1 g/dL [facility] Immature granulocytes (Bld) [#/Vol] [facility] Immature granulocytes/100 WBC (Bld) 0 % 0 [facility] Interpretation and review of laboratory results Abnormal [facility] Lymphocytes/100 WBC (Bld) 24 % Low 25 - 45 % [facility] Lymphocytes/100 WBC (Bld) 1.82 % [facility] MCH (RBC) [Entitic mass] 24.3 pg Low 25. 2 - 33.5 pg [facility] MCHC (RBC) [Mass/Vol] 31.6 g/dL 28.4 - 34.8 g/dL [facility] MCV (RBC) [Entitic vol] 76.7 fL Low 82.6 - 102.9 fL [facility] Monocytes/100 WBC (Bld) 6 % 2 - 8 % [facility] Monocytes/100 WBC (Bld) 0.46 % [facility] Neutrophils/100 WBC (Bld) 67 % High 34 - 64 % [facility] Nucleated RBC/100 WBC (Bld) [Ratio] 0.0 % 0.0 per 100 WBC [facility] Platelet mean volume (Bld) [Entitic vol] 11.7 fL 8.1 - 13.5 fL [facility] Platelets (Bld) [#/Vol] 276 10*3/uL [facility] RBC (Bld) [#/Vol] 4.90 10*6/uL 3.95 - 5.11 m/uL [facility] Segmented neutrophils/100 WBC (Bld) 5.18 % [facility] WBC other (Bld) [#/Vol] 7.7 B ON [facility] CBC with Diffon 08-23-2023 Abs. Basophil 0.06 k/uL Normal 0.00-0.20 [facility] Comment on above: Performed By: #### C JUS BENTON BMP #### [facility] [address] [place] [address] [place] [address] Physician Asst: Augutsine Don MD Abs.Imm.Granulocyte <0.03 Normal 0.00-0.30 [facility] Comment on above: Performed By: #### C JUS BENTON, BMP #### [address] [place] [id number] Physician Asst: Augustine Don MD Abs.Neutrophil (Seg) 5.18 k/uL Normal 1.80-8.00 [facility] Comment on above: Performed By: #### C JUS BENTON BMP #### [address] [place] [address] Physician Asst: Augustine Don MD Basophils/100 WBC (Bld) 1 % Normal 0-2 [facility] Comment on above: Performed By: #### C YVON BENTONI, BMP #### [address] [place] [address] Physician Asst: Augustine Don MD Eosinophils (Bld) [#/Vol] 0.14 10*3/uL Normal 0.00-0.4 4 [facility] Comment on above: Performed By: #### C DP TROPI, BMP #### [address] [place], [place] [address] Physician Asst: Augustine Don MD Eosinophils/100 WBC (Bld) 2 % Normal 1-4 [facility] Comment on above: Performed By: #### C DP TROPI, BMP #### [address] [place], [facility] Physician Asst: Augustine Don MD Erythrocyte distribution width (RBC) [Ratio] 14.0 % Normal 11.8-14.4 [facility] Comment on above: Performed By: #### C SERENITY TROPI, BMP #### [address] [place], [place] [address] Physician Asst: Augustine Don MD Hematocrit (Bld) [Volume fraction] 37.6 % Normal 36.3-47.1 [facility] Comment on above: Performed By: #### C SERENITY TROPI, BMP #### [address] [place], [place] [address] Physician Asst: Augustine Don MD Hemoglobin (Bld) [Mass/Vol] 11.9 g/dL Normal 11.9-15. 1 [facility] Comment on above: Performed By: #### C SERENITY TROPI, BMP #### [address] [place], [facility] Physician Asst: Augustine Don MD Immature granulocytes/100 WBC (Bld) 0 % Normal 0 [facility] Comment on above: Performed By: #### C DP TROPI, BMP #### [address] [place], [facility] Physician Asst: Augustine Don MD Lymphocytes (Bld) [#/Vol] 1.82 10*3/uL Normal 1.20-5.2 0 [facility] Comment on above: Performed By: #### C JUS BENTON, BMP #### [facility] [address] [place], [place] [id number] Physician Asst: Augustine Don MD Lymphocytes/100 WBC (Bld) 24 % Low 25-45 [facility] Comment on above: Performed By: #### C JUS BENTON, BMP #### [facility] [address] [place], [place] [id number] Physician Asst: Augustine Don MD MCH (RBC) [Entitic mass] 24.3 pg Low 25.2-33.5 [facility] Comment on above: Performed By: #### C JUS BENTON, BMP #### [address] [place], [place] [id number] Physician Asst: Augustine Don MD MCHC (RBC) [Mass/Vol] 31.6 g/dL Normal 28.4-34.8 [facility] Comment on above: Performed By: #### C JUS BENTON, BMP #### [address] [place], [place] [id number] Physician Asst: Augustine Don MD MCV (RBC) [Entitic vol] 76.7 fL Low 82.6-102.[address] [facility] Comment on above: Performed By: #### C JUS BENTON, BMP #### [facility] [address] [place], [place] [id number] Physician Asst: Augustine Don MD Monocytes (Bld) [#/Vol] 0.46 10*3/uL Normal 0.10-1.40 [facility] Comment on above: Performed By: #### C JUS BENTON, BMP #### [facility] [address] [place], [place] [id number] Physician Asst: Augustine Don MD Monocytes/100 WBC (Bld) 6 % Normal 2-[address] [facility] Comment on above: Performed By: #### C JUS BENTON BMP #### [facility] [address] [place], [place] [id number] Physician Asst: Augustine Don MD Neutrophil (Seg) 67 % High 34-64 [facility] Comment on above: Performed By: #### C JUS BENTON, BMP #### [facility] [address] [place], [place] [phone] Physician Asst: Augustine Don MD NRBC Automated 0.0 per 100 WBC Normal 0.0 [facility] Comment on above: Performed By: #### C JUS BENTON BMP #### [address] [place], [place] [phone] Physician Asst: Augustine Don MD Platelet mean volume (Bld) [Entitic vol] 11.7 fL Normal 8.1-13.5 [facility] Comment on above: Performed By: #### C JUS BENTON BMP #### [address] [place], [place] [phone] Physician Asst: Augustine Don MD Platelets (Bld) [#/Vol] 276 10*3/uL Normal 138-453 [facility] Comment on above: Performed By: #### C JUS BENTON, BMP #### [facility] [address] [place] [address] Dr. [place], [place] [id number] Physician Asst: Augustine Don MD RBC (Bld) [#/Vol] 4.90 10*6/uL Normal 3.95-5.11 [facility] Comment on above: Performed By: #### C JUS BENTON, BMP #### [facility] [address] [place], [place] [id number] Physician Asst: Augustine Don MD WBC (Bld) [#/Vol] 7.7 10*3/uL Normal 4.5-13.5 [facility] Comment on above: Performed By: #### C SERENITY, ESVIN LUU #### [facility] [address] [place] [address] Physician Asst: Augustine Don MD D-Dimer Teston 08-23-2023 D-Dimer Test <0.27 Normal 0.00-0.59 [facility] Comment on above: Result Comment: When combined [...] distal DVT. Performed By: #### D ABELINO ####[facility] [place] [address] Lab Director: Augustine Dno MD D-Dimer, Quantitativeon 08-01 Fibrin D-dimer FEU (PPP) [Mass/Vol] [facility] Comment on above: When combined with a [...] more prevalent in patients with distal DVT. [facility] Magnesiumon 08-23-2023 Magnesium [Mass/Vol] 2.0 mg/dL 1.6 - 2 .6 mg/dL [facility] Magnesium [Mass/Vol] 2.0 mg/dL Normal 1.6-2.6 [facility] Comment on above: Performed By: #### M G #### [facility] [address] [place] [address] [place] [address] Physician Asst: Augustine Don MD Portable XR Chest AP single viewon 08-23-2023 No acute cardiopulmonary disease. [facility] EXAMINATION: ONE XRAY VIEW OF THE CHEST 08/23/2023 11:26 am COMPARISON: None. HISTORY: ORDERING SYSTEM PROVIDED HISTORY: Chest Pain TECHNOLOGIST PROVIDED HISTORY: Chest Pain FINDINGS: The cardiomediastinal silhouette is unremarkable. The lungs are clear. No infiltrate, pleural fluid or focal process is identified. [facility] Augustine Macias MD - 08/23/2023 EXAMINATION: ONE XRAY VIEW OF THE CHEST 08/23/2023 11:26 am COMPARISON: None. HISTORY: ORDERING SYSTEM PROVIDED HISTORY: Chest Pain TECHNOLOGIST PROVIDED HISTORY: Chest Pain FINDINGS: The cardiomediastinal silhouette is unremarkable. The lungs are clear. No infiltrate, pleural fluid or focal process is identified. IMPRESSION: No acute cardiopulmonary disease. [facility] Radiology Study observation (narrative) [facility] Portable XR Chest AP single viewOrdered By: Augustine Macias on 08-23-2023 [facility] Work Phone: TSH w/reflex to FT4on 2023 Thyroid Stim. Horm. 0.75 uIU/mL Normal 0.30-5.00 [facility] Comment on above: Performed By: #### T SHX ####[facility] [place] [address] Lab Director: Augustine Don MD TSH with Reflexon 08-23-2023 TSH Qn 0.75 m[IU]/L [facility] Troponinon 08-23-2023 Troponin I.cardiac High sensitivity method [Mass/Vol] ng/L 0 - 14 ng/L [facility] Comment on above: High Sensitivity Tro ponin values cannot be compared with other Troponin methodologies. [facility] Troponin, High Sens <6 Normal 0-14 [facility] Comment on above: Result Comment: High Sensitivity Troponin values cannot be compared with other Troponin methodologies. Performed By: #### C DP, TROPI, BMP #### [facility] [address] [place] [address] Physician Asst: Augustine Don MD XR CHEST PORTABLEon 08-23-19 24 XR CHEST PORTABLE EXAMINATION: ONE XRAY VIEW [...] Augustine Macias MD 08/23/23 Final result Normal [facility] POCT , urineon 03-0 Beta HCG ( test) Ql (U) Negative [employer] Shift Supervisor Check Completed and Passed Yes [facility] Interpretation and review of laboratory results Normal [facility] Cord Arterial Blood Gason Base deficit (Bld) [Moles/Vol] 7.0 mmol/L High [facility] CO2 (BldCoA) [Partial pressure] 62.7 High [facility] HCO3 (Bld) [Moles/Vol] 22.8 mmol/L [facility] Oxygen (BldCoA) [Partial pressure] 12 [facility] Oxygen saturation in Blood 9.0 % 7 .1 - 39.5 % [facility] pH (BldCoA) 7.167 Low 7.24 - 7.30 [facility] Specimen site [facility]ative [facility] Cord Venous Blood Gason Base deficit (Bld) [Moles/Vol] 5.0 mmol/L High [facility] CO2 (BldCoV) [Partial pressure] 43.5 [facility] HCO3 (Bld) [Moles/Vol] 21.1 mmol/L [facility] Oxygen (BldCoV) [Partial pressure] 21 Low [facility] Oxygen saturation in Blood 29.0 % Low 3 2.5 - 66.3 % [facility] pH (BldCoV) 7.293 7.25 - 7.37 [facility] Spec[facility] inform ationon 04-02-2023 Specimen type Nom (Spec) UMBILICALCORD [facility] No Panel Informationon 04-02 Arterial patency Wrist artery --pre arterial puncture [facility] Interpretation and review of laboratory results Abnormal [facility] Survey instrumentson 04-02- 024 Oxygen therapy source and amount [CARE] RoomAir [facility] ABO Rh Repeaton 04-01-2023 ABO A [facility] Rh Nom (Bld) Positive [facility] ABO A [facility] Rh Nom (Bld) Positive [facility] Syphilis Total(Unknown Syphi lis Status)on 04-01-2023 T. pallidum IgG+IgM IA Ql (S) [facility] Comment on above: NON REACTIVE No serologic evidence of infection to Treponema pallidum (syphilis). Repeat testing may be considered in patients with suspected acute or primary syphilis in 2 to 4 weeks. T. pallidum IgG+IgM IA Ql (S )on 04-01-2023 [facility] CBC without diffon Erythrocyte distribution width (RBC) [Ratio] 14.4 % 11.5 - 15.0 % [facility] Hematocrit (Bld) [Volume fraction] 30.4 % Low 35 - 47 % [facility] Hemoglobin (Bld) [Mass/Vol] 10.2 g/dL Low 11.7 - 15.5 g/dL [facility] Interpretation and review of laboratory results Abnormal [facility] MCH (RBC) [Entitic mass] 25.0 pg Low 27 - 34 pg [facility] MCHC (RBC) [Mass/Vol] 33.5 g/dL 32 - 3 6 g/dL [facility] MCV (RBC) [Entitic vol] 75 fL Low 80 - 100 fL [facility] Platelet mean volume (Bld) [Entitic vol] 9.7 fL 7 - 12 fL [facility] Platelets (Bld) [#/Vol] 184 10*3/uL [facility] RBC (Bld) [#/Vol] 4.08 10*6/uL [facility] WBC corrected for nucl RBC Auto (Bld) [#/Vol] 6.5 [facility] Drug Screen, Urineon 024 Amphetamines Screen method >1000 ng/mL Ql (U) Negative Negative^N egative [facility] Comment on above: AMPH/METH screening cut off = 1000 ng/mL Barbiturates Screen Ql (U) Negative N egative^N ative [facility] Comment on above: Barbiturates screeni ng cut off value = 200 ng/mL Benzodiazepines Ql (U) Negative Negat michele^N ative [facility] Comment on above: Benzodiazepines scre ening cut off value = 200 ng/mL Cocaine Ql (U) Negative Negative^N egative [facility] Comment on above: Cocaine screening cu t off value = 300 ng/mL Methadone Screen Ql (U) Negative Nega tive^N [facility] Comment on above: Methadone screening cut off value = 300 ng/mL. Methylenedioxymethamphetami ne Screen Ql (U) Negative Negative^N [facility] Comment on above: Ecstasy screening cu t off value = 500 ng/mL This report is intended for use in clinical monitoring or management of patients. Opiates Screen Ql (U) Negative Negati ve^N [facility] Comment on above: Opiates screening cu t off value = 300 ng/mL NOTE: This test is used for the detection of codeine, hydrocodone (>1000 ng/mL), morphine and hydromorphone (>900 ng/mL) in urine. oxyCODONE Ql (U) Negative Negative^N [facility] Comment on above: Oxycodone screening cut off value = 300 ng/mL NOTE: This test is used for the detection of oxycodone and oxymorphone in urine. Phencyclidine Screen method >25 ng/mL Ql (U) Negative Negative^N [facility] Comment on above: Phencyclidine screen ing cut off value = 25 ng/mL Tetrahydrocannabinol Screen method >50 ng/mL Ql (U) Negative Negative^N [facility] Comment on above: Cannabinoids/THC scr eening cut off value = 50 ng/mL [facility] Type and screenon 03-31-2023 ABO A [facility] Rh Nom (Bld) Positive [facility] nonstress test - Mater nal Medicineon 03-27-2023 [...] nal MedicineOrdered By: Gregoria Major on 03-27-2023 [facility] nonstress test - Mater nal Medicineon 03-25-2023 [...] nal MedicineOrdered By: So Cordoba on 03-25-2023 [facility] nonstress test - Mater nal Medicineon 03-19-2023 [...] by: Hailey Burgos RN 03/19/2023 2:57 PM [facility]N [facility] - Mater nal [...] by: Bozena Briggs RN 03/13/2023 7:57 AM ASOYN [facility] nonstress test - Mater nal Medicineon 03-05-2023 [...] drinking plenty of fluids. Patient has seen lathe puller this morning who stated to patient that [...] by: Fadumo Al RN 03/05/2023 4:03 PM [facility] nonstress test - Mater nal MedicineOrdered By: So Cordoba on 03-05-2023 [facility] CBC AUTO DIFFon 12-04-2021 BASO # 0.1 103/ul Normal 0.0-0.1 [facility] Comment on above: Performed By: #### C BC #### [facility] [address] [address] [address] Daisy Mckenzie Basophils/100 WBC (Bld) 0.8 % Normal 0.2-2.0 [facility] Comment on above: Performed By: #### C BC #### [facility] [address] [address] [address] Dasiy Mckenzie EO # 0.2 103/ul Normal 0.0-0.7 [facility] Comment on above: Performed By: #### C BC #### [facility] [address] [address] [address] Daisy Mckenzie Eosinophils/100 WBC (Bld) 2.3 % Normal 0.9-7.0 [facility] Comment on above: Performed By: #### C BC #### [facility] [address] [place] [address] Dr. Daisy Mckenzie Erythrocyte distribution width (RBC) [Ratio] 13.2 % Normal 11.0-15.0 [facility] Comment on above: Performed By: #### C BC #### [facility] [address] [place] [address] Dr. Daisy Mckenzie Hematocrit (Bld) [Volume fraction] 38.4 % Normal 36.0-48.0 [facility] Comment on above: Performed By: #### C BC #### [facility] [address] [place] [address] Dr. Daisy Mckenzie Hemoglobin (Bld) [Mass/Vol] 12.3 g/dL Normal 12.0-16. 0 [facility] Comment on above: Performed By: #### C BC #### [facility] [address] [place] [address] Dr. Daisy Mckenzie IG # 0.02 10e3/ul Normal 0.00-0.03 [facility] Comment on above: Performed By: #### C BC #### [facility] [address] [place] [address] Dr. Daisy Mckenzie IG % 0.3 % Normal 0.0-0.5 [facility] Comment on above: Performed By: #### C BC #### [facility] [address] [place] [address] Dr. Daisy Mckenzie LYMPH # 1.9 103/ul Normal 1.2-3.8 [facility] Comment on above: Performed By: #### C BC #### [facility] [address] [place] [address] Dr. Daisy Mckenzie Lymphocytes/100 WBC (Bld) 24.6 % Normal 20.5-60.0 [facility] Comment on above: Performed By: #### C BC #### [facility] [address] [place] [address] Dr. Daisy Mckenzie MANUAL DIFF REQ NO Normal [facility] Comment on above: Performed By: #### C BC #### [facility] [address] [place] [address] Dr. Daisy Mckenzie MCH (RBC) [Entitic mass] 26.7 pg Normal 26.7-34.0 [facility] Comment on above: Performed By: #### C BC #### [facility] [address] [place] [address] Dr. Daisy Mckenzie MCHC (RBC) [Mass/Vol] 32.0 g/dL Normal 29.9-35.2 [facility] Comment on above: Performed By: #### C BC #### [facility] [address] [place] [address] Dr. Daisy Mckenzie MCV (RBC) [Entitic vol] 83.3 fL Normal 81.0-99.0 [facility] Comment on above: Performed By: #### C BC #### [facility] [address] [place] [address] Dr. Daisy Mckenzie MONO # 0.6 103/ul Normal 0.3-0.8 [facility] Comment on above: Performed By: #### C BC #### [facility] [address] [place] [address] Dr. Daisy Mckenzie Monocytes/100 WBC (Bld) 7.8 % Normal 1.7-12.0 [facility] Comment on above: Performed By: #### C BC #### [facility] [address] [place] [address] Dr. Daisy Mckenzie NEUT # 5.0 103/ul Normal 1.4-6.5 [facility] Comment on above: Performed By: #### C BC #### [facility] [address] [place] [address] Dr. Daisy Mckenzie Neutrophils/100 WBC (Bld) 64.2 % Normal 43.0-75.0 [facility] Comment on above: Performed By: #### C BC #### [facility] [address] [place] [address] Dr. Daisy Mckenzie Platelet mean volume (Bld) [Entitic vol] 11.6 fL Normal 9.5-13.5 [facility] Comment on above: Performed By: #### C BC #### [facility] [address] [address] [address] Daisy Mckenzie PLT 239 103/ul Normal 150-450 [facility] Comment on above: Performed By: #### C BC #### [facility] [address] [place] [address] Dr. Daisy Mckenzie RBC 4.61 106/ul Normal 4.20-5.40 [facility] Comment on above: Performed By: #### C BC #### [facility] [address] [place] [address] Dr. Daisy Mckenzie WBC 7.7 103/ul Normal 4.0-11.0 [facility] Comment on above: Performed By: #### C BC #### [facility] [address] [place] [address] Dr. Daisy Mckenzie FOLATEon 12-04-2021 FOLATE 15.50 ng/mL Normal 8.60-58.90 [facility] Comment on above: Performed By: #### F OL #### [facility] [address] [place] [address] Dr. Daisy Mckenzie MAGNESIUMon 12-04-2021 Magnesium [Mass/Vol] 2.1 mg/dL Normal 1.8-2.4 [facility] Comment on above: Performed By: #### C MP, TSH, MG #### [facility] [address] [place] [address] Dr. Daisy Mckenzie PROF 14(COMP METB)on 022 Albumin [Mass/Vol] 3.6 g/dL Normal 3.4-5.0 [facility] Comment on above: Performed By: #### C MP, TSH, MG #### [facility] [address] [place] [address] Dr. Daisy Mckenzie Albumin/Globulin [Mass ratio] 0.9 {ratio} Normal [facility] Comment on above: Performed By: #### C MP, TSH, MG #### [facility] [address] [place] [address] Dr. Daisy Mckenzie ALP [Catalytic activity/Vol] 103 U/L Normal 46-116 [facility] Comment on above: Performed By: #### C MP, TSH, MG #### [facility] [address] [address] [address] Daisy Mckenzie ALT [Catalytic activity/Vol] 32 U/L Normal 14-59 [facility] Comment on above: Performed By: #### C MP, TSH, MG #### [facility] [address] [address] [address] Daisy Mckenzie Anion gap [Moles/Vol] 9.5 mmol/L Normal [facility] Comment on above: Performed By: #### C MP, TSH, MG #### [facility] [address] [address] [address] Daisy Mckenzie AST [Catalytic activity/Vol] 16 U/L Normal 15-37 [facility] Comment on above: Performed By: #### C MP, TSH, MG #### [facility] [address] [place] [address] Dr. Daisy Mckenzie Bilirubin [Mass/Vol] 0.3 mg/dL Normal 0.2-1.0 [facility] Comment on above: Performed By: #### C MP, TSH, MG #### [facility] [address] [place] [address] Dr. Daisy Mckenzie Calcium [Mass/Vol] 9.1 mg/dL Normal 8.5-10.1 [facility] Comment on above: Performed By: #### C MP, TSH, MG #### [facility] [address] [place] [address] Dr. Daisy Mckenzie Chloride [Moles/Vol] 102 mmol/L Normal 98-107 [facility] Comment on above: Performed By: #### C MP, TSH, MG #### [facility] [address] [place] [address] Dr. Daisy Mckenzie CO2 [Moles/Vol] 27.4 mmol/L Normal 21.0-32.0 [facility] Comment on above: Performed By: #### C MP, TSH, MG #### [facility] [address] [place] [address] Dr. Daisy Mckenzie Creatinine [Mass/Vol] 0.69 mg/dL Normal 0.55-1.02 [facility] Comment on above: Performed By: #### C MP, TSH, MG #### [facility] [address] [place] [address] Dr. Daisy Mckenzie EGFR-AF ZIMBABWEAN >60 Normal >=60 [facility] Comment on above: Performed By: #### C MP, TSH, MG #### [facility] [address] [address] [address] aDisy Mckenzie EGFR-NON AF ZIMBABWEAN >60 Normal >=60 [facility] Comment on above: Performed By: #### C MP, TSH, MG #### [facility] [address] [place] [address] Dr. Daisy Mckenzie Globulin (S) [Mass/Vol] 3.8 g/dL Normal [facility] Comment on above: Performed By: #### C MP, TSH, MG #### [facility] [address] [place] [address] Dr. Daisy Mckenzie Glucose [Mass/Vol] 96 mg/dL Normal 74-106 [facility] Comment on above: Performed By: #### C MP, TSH, MG #### [facility] [address] [place] [address] Dr. Daisy Mckenzie Potassium [Moles/Vol] 3.9 mmol/L Normal 3.5-5.1 [facility] Comment on above: Performed By: #### C MP, TSH, MG #### [facility] [address] [place] [address] Dr. Daisy Mckenzie Protein [Mass/Vol] 7.4 g/dL Normal 6.4-8.2 [facility] Comment on above: Performed By: #### C MP, TSH, MG #### [facility] [address] [place] [address] Dr. Daisy Mckenzie Sodium [Moles/Vol] 135 mmol/L Critically low 136-145 [facility] Comment on above: Performed By: #### C MP, TSH, MG #### [facility] [address] [place] [address] Dr. Daisy Mckenzie Urea nitrogen [Mass/Vol] 12.0 mg/dL Normal 6.4-19.3 [facility] Comment on above: Performed By: #### C MP, TSH, MG #### [facility] [id number] Daisy Mckenzie Urea nitrogen/Creatinine [Mass ratio] 17.4 mg/mg Normal [facility] Comment on above: Performed By: #### C MP, TSH, MG #### [facility] [address] [address] [address] Daisy Mckenzie TSHon 12-04-2021 TSH 0.763 uIU/mL Normal 0.516-4.13 0 [facility] Comment on above: Performed By: #### C MP, TSH, MG #### [facility] [address] [address] [address] Daisy Mckenzie Basic Metabolic Panelon 10-01 Anion gap [Moles/Vol] 13 mmol/L 9 - 17 mmol/L [facility] Calcium [Mass/Vol] 9.5 mg/dL 8.6 - 10. 4 mg/dL [facility] Chloride [Moles/Vol] 100 mmol/L 98 - 10 7 mmol/L [facility] CO2 [Moles/Vol] 25 mmol/L 20 - 31 mmol/L [facility] Creatinine [Mass/Vol] 0.55 mg/dL 0.5 - 0.9 mg/dL [facility] GFR Non- Pediatric GFR requires additional information. Refer to [employer] website for calculator. 60 - PINF mL/min [facility] Glucose [Mass/Vol] 109 mg/dL High 70 - 99 mg/dL [facility] Interpretation and review of laboratory results Abnormal [facility] Potassium [Moles/Vol] 3.5 mmol/L Low 3.7 - 5.3 mmol/L [facility] Sodium [Moles/Vol] 138 mmol/L 135 - 144 mmol/L [facility] Urea nitrogen (BldV) [Mass/Vol] 12 mg/dL 6 - 20 mg/dL [facility] Urea nitrogen/Creatinine (Bld) [Mass ratio] 22 High 9 - 20 [facility] CBCon 10-27-2021 Hematocrit (Bld) [Volume fraction] 39.1 % 36.3 - 47.1 % [facility] Hemoglobin (Bld) [Mass/Vol] 12.6 g/dL 11.9 - 15.1 g/dL [facility] MCH (RBC) [Entitic mass] 26.9 pg 25 - 35 pg [facility] MCHC (RBC) [Mass/Vol] 32.2 g/dL 28.4 - 34.8 g/dL [facility] MCV (RBC) [Entitic vol] 83.4 fL 78 - 102 fL [facility] NRBC Automated 0.0 0.0 per 100 WBC [facility] Platelet distribution width (Bld) [Ratio] 12.8 % 11.8 - 14.4 % [facility] Platelet mean volume (Bld) [Entitic vol] 11.5 fL 8.1 - 13.5 fL [facility] Platelets (Bld) [#/Vol] 250 10*3/uL [facility] RBC (Bld) [#/Vol] 4.69 10*6/uL 3.95 - 5.11 m/uL [facility] WBC (Bld) [#/Vol] 11.3 10*3/uL [facility] CT Head WO Contraston 2021 No acute intracranial abnormality. [facility] EXAMINATION: CT OF THE HEAD WITHOUT [...] of the visualized skull or soft tissues. [facility] [facility] Augustine Arevalo MD - 10/27/2021 EXAMINATION: CT [...] soft tissues. IMPRESSION: No acute intracranial abnormality. Five minutes Work Phone: Radiology Study observation (narrative) [employer] Phone: CT Head WO ContrastOrdered B y: Augustine Arevalo on 10-27-2021 Five minutes Work Phone: HCG Qualitative, Serumon hCG Qual Negative NEGATIVE Five minutes Comment on above: Specimens with hCG l evels near the threshold of the test (25 mIU/mL) may give a negative or indeterminate result. In such cases, another test should be performed with a new specimen in 48-72 hours. If early is suspected clinically in this setting, correlation with quantitative serum b-hCG level is suggested. [facility] has confirmed the use of plasma for this test. This has not been cleared or approved by the U.S. Food and Drug Administration. The FDA has determined that such clearance is not necessary. [facility] Laboratory - Chemistry and C hemistry - challengeon 10-27-2021 GFR/1.73 sq M.predicted MDRD (S/P/Bld) [Vol rate/Area] [facility] Comment on above: Average GFR for <20 years old not available. Chronic Kidney Disease: <60 mL/min/1.73sq m Kidney failure: <15 mL/min/1.73sq m eGFR calculated using average adult body mass. Additional eGFR calculator available at: http://www.[employer]/multiple_crcl_2012.htm Stage 1: Some kidney damage normal GFR Stage 2: Mild kidney damage GFR 60-89 Stage 3: Moderate kidney damage GFR 30-59 Stage 4: Severe kidney damage GFR 15-29 Stage 5: Severe kidney damage GFR <15 ESRD - chronic treatment by dialysis or transplant Microscopic Urinalysison Epithelial Cells UA 0 TO 2 [facility] RBC, UA None [facility] WBC, UA None [facility] Urinalysis with Reflex to Cu ltureon 10-27-2021 Bilirubin Urine Negative NEGATIVE [facility] Color, UA Yellow Yellow [facility] Glucose, Ur Negative NEGATIVE [facility] Interpretation and review of laboratory results Abnormal [facility] Ketones Ql (U) Negative NEGATIVE [facility] Leukocyte esterase Test strip Ql (U) Negative NEGATIVE [facility] Nitrite, Urine Negative NEGATIVE [facility] pH, UA 6.0 5 - 9 [facility] Protein, UA Negative NEGATIVE [facility] Specific [place], UA High 1.01 - 1.02 [facility] Turbidity UA Clear Clear [facility] Urine Hgb Negative NEGATIVE [facility] Urobilinogen, Urine Normal Normal [facility] COVID Quick Testingon 2021 Result Negative [employer] mymission2 Other Quick Fluon 05-19-2021 FLUAV Ab CF (S) [Titer] Negative N [employer] Other FLUBV Ab CF (S) [Titer] Negative N [employer] Other Surgical Pathologyon 020 Surgical Pathology (NOTE) -- Diagnosis -- BILATERAL TONSILS, TONSILLECTOMY: - ACUTE AND CHRONIC TONSILLITIS WITH FOLLICULAR LYMPHOID HYPERPLASIA AND ACTINOMYCES COLONIZATION. Kishor Tariq M.D. Electronically Signed Out 08/29/2019 Clinical Information Pre-op Diagnosis: TANDA HYPERTROPHY, CHRONIC TONSILLITIS Operative Findings: BILATERAL TONSILS (GROSS ONLY) Source of Specimen 1: BILATERAL TONSILS - GROSS ONLY Gross Description JOLENE BURROWS, BILATERAL TONSILS GROSS ONLY Two tonsils, 2.6 x 1.8 x 1.4 cm and 2.6 x 2.3 x 1.5 cm (4 grams each). Sectioning reveals clefted kothari cut surfaces with no masses. Racking Machine Operator section of each 2cs. . tm Microscopic Description Microscopic examination performed. SURGICAL PATHOLOGY CONSULTATION Patient Name: JOLENE BURROWS [facility] Rec: [id number] Path Number: [id number] [facility] PATHOLOGISTS [employer] ANATOMIC PATHOLOGY [address] [place] [id number] [facility] Comment on above: Performed By: #### P PPVS #### [facility] [address] [place] [id number] Physician Asst: Lazaro Garcia MD Vital Signs Date Time Vital Sign Value Performing Clinician Facility 10-24-2024 15: Body height 162.6 cm Cristiane Nnaji STAFF RN-REMELT OPERATOR Work Phone: [facility] 10-24-2024 [id number] Body mass index (BMI) [Ratio] 42.44 kg/m2 Assumpta Sina SANCHEZN-REMELT OPERATOR Work Phone: [facility] 10-24-2024 15:13-0400 Body temperature 97.7 [degF] Assumpta Sina SANCHEZN-REMELT OPERATOR Work Phone: [facility] 10-24-2024 15:13-0400 Body weight 112.22 kg Assumpta Sina SANCHEZN-REMELT OPERATOR Work Phone: [facility] 10-24-2024 15:13-0400 Diastolic blood pressure 72 mm[Hg] Assumpta Sina SANCHEZN-REMELT OPERATOR Work Phone: [facility] 10-24-2024 15:13-0400 Heart rate 92 /min Assumpta Sina SANCHEZN-REMELT OPERATOR Work Phone: [facility] 10-24-2024 15:13-0400 SaO2% (BldA) [Mass fraction] 98 % Assumpta Sina SANCHEZN-REMELT OPERATOR Work Phone: [facility] 10-24-2024 15:13-0400 Systolic blood pressure 98 mm[Hg] Assumpta Sina SANCHEZN-REMELT OPERATOR Work Phone: [facility] 10-12-2024 14:10-0400 Body height 162.6 cm Olga Lidia Menon MD Work Phone: [facility] 10-12-2024 14:10-0400 Body mass index (BMI) [Ratio] 42.23 kg/m2 Olga Lidia Menon MD Work Phone: [facility] 10-12-2024 14:10-0400 Body weight 111.68 kg Olga Lidia Menon MD Work Phone: [facility] 10-12-2024 14:10-0400 Diastolic blood pressure 66 mm[Hg] Olga Lidia Menon MD Work Phone: [facility] 10-12-2024 14:10-0400 Heart rate 89 /min Olga Lidia Menon MD Work Phone: [facility] 10-12-2024 14:10-0400 SaO2% (BldA) [Mass fraction] 99 % Olga Lidia Menon MD Work Phone: [facility] 10-12-2024 14:10-0400 Systolic blood pressure 94 mm[Hg] Olga Lidia Menon MD Work Phone: [facility] 09-22-2024 15:17-0400 Body height 162.6 cm Assumpta Karleneaji STAFF RN-REMELT OPERATOR Work Phone: [facility] 09-22-2024 15:17-0400 Body mass index (BMI) [Ratio] 42.82 kg/m2 Assumpta Karleneafroy STAFF RN-REMELT OPERATOR Work Phone: [facility] 09-22-2024 15:17-0400 Body temperature 98.01 [degF] Assumpta Sina STAFF RN-REMELT OPERATOR Work Phone: [facility] 09-22-2024 15:17-0400 Body weight 113.22 kg Assumpta Karleneaji STAFF RN-REMELT OPERATOR Work Phone: [facility] 09-22-2024 15:17-0400 Diastolic blood pressure 71 mm[Hg] Assumpta Karleneaji STAFF RN-REMELT OPERATOR Work Phone: [facility] 09-22-2024 15:17-0400 Heart rate 133 /min Assumpta Karleneafroy STAFF RN-REMELT OPERATOR Work Phone: [facility] 09-22-2024 15:17-0400 SaO2% (BldA) [Mass fraction] 97 % Assumpta Karleneafroy STAFF RN-REMELT OPERATOR Work Phone: [facility] 09-22-2024 15:17-0400 Systolic blood pressure 152 mm[Hg] Assumpta Karleneaji STAFF RN-REMELT OPERATOR Work Phone: [facility] 08-31-2024 12:44-0400 Body temperature 98.2 [degF] Ruyya Reyes MD Work Phone: [facility] 08-31-2024 12:44-0400 Diastolic blood pressure 71 mm[Hg] Prema Reyes MD Work Phone: [facility] 08-31-2024 12:44-0400 Heart rate 83 /min Prema Reyes MD Work Phone: [facility] 08-31-2024 12:44-0400 Respiratory rate 17 /min Prema Reyes MD Work Phone: [facility] 08-31-2024 12:44-0400 SaO2% (BldA) [Mass fraction] 98 % Prema Reyes MD Work Phone: [facility] 08-31-2024 12:44-0400 Systolic blood pressure 110 mm[Hg] Prema Reyes MD Work Phone: [facility] 08-31-2024 05:00-0400 Body mass index (BMI) [Ratio] 43.48 kg/m2 Prema Reyes MD Work Phone: [facility] 08-31-2024 05:00-0400 Body weight 114.9 kg Prema Reyes MD Work Phone: [facility] 08-29-2024 16:44-0400 Body height 162.6 cm Prema Reyes MD Work Phone: [facility] 07-23-2024 12:50-0400 Body height 162.56 cm PHYSICIAN NO [facility] 07-23-2024 12:50-0400 Body mass index (BMI) [Ratio] 42 kg/m2 PHYSICIAN NO [facility] 07-23-2024 12:50-0400 Body temperature 97.3 [degF] PHYSICIAN NO [facility] 07-23-2024 12:50-0400 Body weight 111.13 kg PHYSICIAN NO [facility] 07-23-2024 12:50-0400 Diastolic blood pressure 63 mm[Hg] PHYSICIAN NO [facility] 07-23-2024 12:50-0400 Heart rate 106 /min PHYSICIAN NO [facility] 07-23-2024 12:50-0400 Respiratory rate 18 /min PHYSICIAN NO [facility] 07-23-2024 12:50-0400 SaO2% (BldA) [Mass fraction] 98 % PHYSICIAN NO [facility] 07-23-2024 12:50-0400 Systolic blood pressure 102 mm[Hg] PHYSICIAN NO [facility] 07-19-2024 13:10-0400 Body height [address] 07-19-2024 13:10-0400 Body mass index (BMI) [Ratio] 43.75 kg/m2 [address] 07-19-2024 13:10-0400 Body weight 111.[address] 07-19-2024 13:10-0400 Diastolic blood pressure 72 mm[Hg] [address] 07-19-2024 13:10-0400 Systolic blood pressure 108 mm[Hg] [address] 07-15-2024 13:51-0400 Body height 160 cm Liz Mckeon MD Work Phone: [facility] 07-15-2024 13:51-0400 Body mass index (BMI) [Ratio] 44.12 kg/m2 Liz Mckeon MD Work Phone: [facility] 07-15-2024 13:51-0400 Body weight 112.95 kg Liz Mckeon MD Work Phone: [facility] 07-15-2024 13:51-0400 Diastolic blood pressure 72 mm[Hg] Liz Mckeon MD Work Phone: [facility] 07-15-2024 13:51-0400 Heart rate 106 /min Liz Mckeon MD Work Phone: [facility] 07-15-2024 13:51-0400 SaO2% (BldA) [Mass fraction] 99 % Liz Mckeon MD Work Phone: [facility] 07-15-2024 13:51-0400 Systolic blood pressure 98 mm[Hg] Liz Mckeon MD Work Phone: [facility] 07-02-2024 15:35-0400 Body temperature 97.39 [degF] Elisa Arce MD Work Phone: [facility] 07-02-2024 15:35-0400 Diastolic blood pressure 80 mm[Hg] Elisa Arce MD Work Phone: [facility] 07-02-2024 15:35-0400 Heart rate 88 /min Elisa Arce MD Work Phone: [facility] 07-02-2024 15:35-0400 Respiratory rate 20 /min Elisa Arce MD Work Phone: [facility] 07-02-2024 15:35-0400 SaO2% (BldA) [Mass fraction] 99 % Elisa Arce MD Work Phone: [facility] 07-02-2024 15:35-0400 Systolic blood pressure 122 mm[Hg] Elisa Arce MD Work Phone: [facility] 06-29-2024 13:02-0400 Body height [address] [facility] 06-29-2024 13:02-0400 Body mass index (BMI) [Ratio] 43.55 kg/m2 [address] 06-29-2024 13:02-0400 Body weight 111.[address] [facility] 06-29-2024 13:02-0400 Diastolic blood pressure 78 mm[Hg] [address] 06-29-2024 13:02-0400 Systolic blood pressure 122 mm[Hg] [address] 06-28-2024 13:47-0400 Body height 160 cm [facility] 06-28-[facility]24 13:47-0400 Body mass index (BMI) [Ratio] 40.74 kg/m2 [facility] 06-28-2024 13:47-0400 Body temperature 98.29 [degF] [facility] 06-28-2024 13:47-0400 Body weight 104.33 kg [facility] 06-28-2024 13:47-0400 Heart rate 100 /min [facility] 06-28-2024 13:47-0400 Respiratory rate 20 /min [facility] 06-28-2024 13:47-0400 SaO2% (BldA) [Mass fraction] 100 % [facility] 04-11-2024 14:47-0500 Body height 162.56 cm PHYSICIAN NO [facility] 04-11-2024 14:47-0500 Body mass index (BMI) [Ratio] 42.4 kg/m2 PHYSICIAN NO [facility] 04-11-2024 14:47-0500 Body temperature 98.9 [degF] PHYSICIAN NO [facility] 04-11-2024 14:47-0500 Body weight 112.2 kg PHYSICIAN NO [facility] 04-11-2024 14:47-0500 Diastolic blood pressure 74 mm[Hg] PHYSICIAN NO [facility] 04-11-2024 14:47-0500 Heart rate 100 /min PHYSICIAN NO [facility] 04-11-2024 14:47-0500 Respiratory rate 19 /min PHYSICIAN NO [facility] 04-11-2024 14:47-0500 SaO2% (BldA) [Mass fraction] 97 % PHYSICIAN NO [facility] 04-11-2024 14:47-0500 Systolic blood pressure 102 mm[Hg] PHYSICIAN NO [facility] 12-29-2023 13:04-0400 Heart rate 122 /min Beatriz Kebede MD Work Phone: [facility] 12-29-2023 13:04-0400 Respiratory rate 96 /min Beatriz Kebede MD Work Phone: [facility] 12-29-2023 12:58-0400 Body height 162.6 cm Beatriz Kebede MD Work Phone: [facility] 12-29-2023 12:58-0400 Body mass index (BMI) [Ratio] 42.2 kg/m2 Beatriz Kebede MD Work Phone: [facility] 12-29-2023 12:58-0400 Body weight 111.58 kg Beatriz Kebede MD Work Phone: [facility] 12-29-2023 12:58-0400 Diastolic blood pressure 80 mm[Hg] Beatriz Kebede MD Work Phone: [facility] 12-29-2023 12:58-0400 SaO2% (BldA) [Mass fraction] 96 % Beatriz Kebede MD Work Phone: [facility] 12-29-2023 12:58-0400 Systolic blood pressure 132 mm[Hg] Beatriz Kebede MD Work Phone: [facility] 08-28-2023 13:02-0400 Body height 162.6 cm Beatriz Kebede MD Work Phone: [facility] 08-28-2023 13:02-0400 Body mass index (BMI) [Ratio] 39.14 kg/m2 Beatriz Kebede MD Work Phone: [facility] 08-28-2023 13:02-0400 Body weight 103.42 kg Beatriz Kebede MD Work Phone: [facility] 08-28-2023 13:02-0400 Diastolic blood pressure 68 mm[Hg] Beatriz Kebede MD Work Phone: [facility] 08-28-2023 13:02-0400 Heart rate 108 /min Beatriz Kebede MD Work Phone: [facility] 08-28-2023 13:02-0400 Systolic blood pressure 116 mm[Hg] Beatriz Kebede MD Work Phone: [facility] 08-23-2023 13:12-0400 SaO2% (BldA) [Mass fraction] 100 % [facility] 08-23-2023 12:00-0400 Heart rate 86 /min [facility] 08-23-2023 12:00-0400 Respiratory rate 16 /min [facility] 08-23-2023 11:58-0400 Diastolic blood pressure 64 mm[Hg] [facility] 08-23-2023 11:58-0400 Systolic blood pressure 100 mm[Hg] [facility] 08-23-2023 10:56-0400 Body height 162.6 cm [facility] 08-23-2023 10:56-0400 Body mass index (BMI) [Ratio] 39.48 kg/m2 [facility] 08-23-2023 10:56-0400 Body temperature 98.49 [degF] [facility] 08-23-2023 10:56-0400 Body weight 104.33 kg [facility] 06-12-2023 13:04-0400 Body height 162.[address] 06-12-2023 13:04-0400 Body mass index (BMI) [Ratio] 39.19 kg/m2 [address] 06-12-2023 13:04-0400 Body weight 103.[address] 06-12-2023 13:04-0400 Diastolic blood pressure 62 mm[Hg] [address] 06-12-2023 13:04-0400 Systolic blood pressure 112 mm[Hg] [address] 05-08-2023 13:04-0500 Body height 162.[address] 05-08-2023 13:04-0500 Body mass index (BMI) [Ratio] 39.13 kg/m2 [address] 05-08-2023 13:04-0500 Body weight 103.[address] 05-08-2023 13:04-0500 Diastolic blood pressure 70 mm[Hg] [address] 05-08-2023 13:04-0500 Systolic blood pressure 128 mm[Hg] [facility] 04-03-2023 14:22-0500 Body temperature 98.8 [degF] Marilynn Ashby Bojanic STAFF RN-CNM Work Phone: [facility] 04-03-2023 14:22-0500 Diastolic blood pressure 54 mm[Hg] Marilynn Ashby Bojanic STAFF RN-CNM Work Phone: [facility] 04-03-2023 14:22-0500 Heart rate 86 /min Marilynn Ashby Bojanic STAFF RN-CNM Work Phone: [facility] 04-03-2023 14:22-0500 Respiratory rate 18 /min Marilynn Ashby Bojanic STAFF RN-CNM Work Phone: [facility] 04-03-2023 14:22-0500 Systolic blood pressure 102 mm[Hg] Marilynn Ashby Bojanic STAFF RN-CNM Work Phone: [facility] 04-01-2023 23:00-0500 SaO2% (BldA) [Mass fraction] 100 % Marilynn Ashby Bojanic STAFF RN-CNM Work Phone: [facility] 03-31-2023 23:00-0500 Body height 162.6 cm Marilynn Ashby Bojanic STAFF RN-CNM Work Phone: [facility] 03-31-2023 23:00-0500 Body mass index (BMI) [Ratio] 40.77 kg/m2 Marilynn Ashby Bojanic STAFF RN-CNM Work Phone: [facility] 03-31-2023 23:00-0500 Body weight 107.8 kg Marilynn Ashby Bojanic STAFF RN-CNM Work Phone: [facility] 03-27-2023 13:56-0500 Diastolic blood pressure 68 mm[Hg] [address] 03-27-2023 13:56-0500 Heart rate 112 /min [address] 03-27-2023 13:56-0500 Systolic blood pressure 115 mm[Hg] [address] 03-25-2023 15:24-0500 Body mass index (BMI) [Ratio] 40.78 kg/m2 [facility] 03-25-2023 15:24-0500 Body weight 107.78 kg [facility] 03-25-2023 15:24-0500 Diastolic blood pressure 60 mm[Hg] [facility] 03-25-2023 15:24-0500 Systolic blood pressure 92 mm[Hg] [address] 03-24-2023 14:35-0500 Diastolic blood pressure 66 mm[Hg] [address] 03-24-2023 14:35-0500 Heart rate 100 /min [address] 03-24-2023 14:35-0500 Systolic blood pressure 106 mm[Hg] [address] 03-19-2023 13:36-0500 Diastolic blood pressure 65 mm[Hg] [address] 03-19-2023 13:36-0500 Heart rate 99 /min [address] 03-19-2023 13:36-0500 Systolic blood pressure 107 mm[Hg] [address] 03-18-2023 13:20-0500 Body mass index (BMI) [Ratio] 41.28 kg/m2 [address] 03-18-2023 13:20-0500 Body weight 109.[address] 03-18-2023 13:20-0500 Diastolic blood pressure 76 mm[Hg] [facility] 03-18-2023 13:20-0500 Systolic blood pressure 117 mm[Hg] [facility] 03-12-2023 14:16-0500 Body mass index (BMI) [Ratio] 40.63 kg/m2 [facility] 03-12-2023 14:16-0500 Body weight 107.37 kg [facility] 03-12-2023 14:16-0500 Diastolic blood pressure 64 mm[Hg] [facility] 03-12-2023 14:16-0500 Systolic blood pressure 108 mm[Hg] [facility] 03-12-2023 12:57-0500 Diastolic blood pressure 70 mm[Hg] [address] 03-12-2023 12:57-0500 Heart rate 119 /min [address] 03-12-2023 12:57-0500 Systolic blood pressure 113 mm[Hg] [address] 03-10-2023 16:02-0500 Body height 162.6 cm Richie Javad DO Work Phone: [facility] 03-10-2023 16:02-0500 Body mass index (BMI) [Ratio] 40.34 kg/m2 Richie Javad DO Work Phone: [facility] 03-10-2023 16:02-0500 Body weight 106.59 kg Richie Javad DO Work Phone: [facility] 03-10-2023 16:02-0500 Diastolic blood pressure 84 mm[Hg] Richie Javad DO Work Phone: [facility] 03-10-2023 16:02-0500 Heart rate 113 /min Richie Javad DO Work Phone: [facility] 03-10-2023 16:02-0500 SaO2% (BldA) [Mass fraction] 98 % Richie Javad DO Work Phone: [facility] 03-10-2023 16:02-0500 Systolic blood pressure 136 mm[Hg] Richie Javad DO Work Phone: [facility] 03-05-2023 13:39-0500 Diastolic blood pressure 70 mm[Hg] [address] 03-05-2023 13:39-0500 Heart rate 101 /min [address] 03-05-2023 13:39-0500 Systolic blood pressure 113 mm[Hg] [address] 03-05-2023 10:13-0500 Body mass index (BMI) [Ratio] 40.39 kg/m2 [facility] 03-05-2023 10:13-0500 Body weight 106.73 kg [facility] 03-05-2023 10:13-0500 Diastolic blood pressure 64 mm[Hg] [facility] 03-05-2023 10:13-0500 Systolic blood pressure 108 mm[Hg] [facility] 09-08-2022 11:40-0400 Body temperature 98.8 [degF] Jolene Love Other [employer] Other 09-08-2022 11:40-0400 Body weight 106.05 kg Jolene Love Other [employer] Other 09-08-2022 11:40-0400 Respiratory rate 18 /min Jolene Love Other [employer] Other 09-08-2022 11:40-0400 SaO2% (BldA) [Mass fraction] 98 % Jolene Love Other [employer] Other 12-03-2021 15:30-0400 Body height 162.56 cm Shelbie Stef Other [employer] Other 12-03-2021 15:30-0400 Body mass index (BMI) [Ratio] 40.13 kg/m2 Shelbie Finch Other [employer] Other 12-03-2021 15:30-0400 Body temperature 97.9 [degF] Shelbie Finch Other [employer] Other 12-03-2021 15:30-0400 Body weight 106.05 kg Shelbie Finch Other [employer] Other 12-03-2021 15:30-0400 Diastolic blood pressure 71 mm[Hg] Shelbie Finch Other [employer] Other 12-03-2021 15:30-0400 Respiratory rate 18 /min Shelbie Bhardwajault Other [employer] Other 12-03-2021 15:30-0400 SaO2% (BldA) [Mass fraction] 100 % Shelbie Bhardwajault Other [employer] Other 12-03-2021 15:30-0400 Systolic blood pressure 111 mm[Hg] Shelbie Stef Other [employer] Other 10-29-2021 12:30-0400 Body height 162.56 cm Shelbie Bhardwajault Other [employer] Other 10-29-2021 12:30-0400 Body mass index (BMI) [Ratio] 39.48 kg/m2 Shelbie Bhardwajault Other [employer] Other 10-29-2021 12:30-0400 Body temperature 98.7 [degF] Shelbie Bhardwajault Other [employer] Other 10-29-2021 12:30-0400 Body weight 104.33 kg Shelbie Bhardwajault Other [employer] Other 10-29-2021 12:30-0400 Diastolic blood pressure 45 mm[Hg] Shelbie Stef Other [employer] Other 10-29-2021 12:30-0400 Respiratory rate 18 /min Shelbie Finch Other [employer] Other 10-29-2021 12:30-0400 SaO2% (BldA) [Mass fraction] 97 % Shelbie Finch Other [employer] Other 10-29-2021 12:30-0400 Systolic blood pressure 102 mm[Hg] Shelbie Finch Other [employer] Other 10-27-2021 02:26-0400 Heart rate 96 /min Fern Busch DO Work Phone: [employer] 10-27-2021 02:16-0400 Diastolic blood pressure 79 mm[Hg] Fern Busch DO Work Phone: [employer] 10-27-2021 02:16-0400 Respiratory rate 26 /min Fern Busch DO Work Phone: [employer] 10-27-2021 02:16-0400 Systolic blood pressure 112 mm[Hg] Fern Narayan DO Work Phone: [employer] 10-27-2021 01:46-0400 Body temperature 97.39 [degF] Fern Busch DO Work Phone: [employer] 10-27-2021 01:46-0400 Body weight 90.72 kg Fern Narayan DO Work Phone: [employer] 10-27-2021 01:46-0400 SaO2% (BldA) [Mass fraction] 100 % Fern Busch DO Work Phone: [employer] 05-19-2021 12:30-0400 Body height 162.56 cm [place] Other [employer] Other 05-19-2021 12:30-0400 Body mass index (BMI) [Ratio] 34.33 kg/m2 Glenys Cruzmond Other [employer] Other 05-19-2021 12:30-0400 Body temperature 98.6 [degF] Glenys Aleksandra Other [employer] Other 05-19-2021 12:30-0400 Body weight 90.72 kg Glenys Cruzmond Other [employer] Other 05-19-2021 12:30-0400 Respiratory rate 18 /min Glenys Aleksandra Other [employer] Other 05-19-2021 12:30-0400 SaO2% (BldA) [Mass fraction] 96 % Glenys Cruzmond Other [employer] Other 02-20-2021 11:00-0500 Body height 162.56 cm [place] Other [employer] Other 02-20-2021 11:00-0500 Body mass index (BMI) [Ratio] 36.04 kg/m2 Glenys Cruzmond Other [employer] Other 02-20-2021 11:00-0500 Body temperature 97.8 [degF] Glenys Aleksandra Other [employer] Other 02-20-2021 11:00-0500 Body weight 95.26 kg Glenys Aleksandra Other [employer] Other 02-20-2021 11:00-0500 Respiratory rate 18 /min Glenys Aleksandra Other [employer] Other 02-20-2021 11:00-0500 SaO2% (BldA) [Mass fraction] 98 % [place] Other [employer] Other Encounters Encounter Date Encounter Type Care Provider Facility Start: 10-24-2024 End: 10-24-2024 Office outpatient visit 25 minutes Assumpta N [employer] Work Phone: [facility] Comment on above: MARTY (generalized anx iety disorder) (Primary Dx); Prediabetes; Insulin resistance; Cardiovascular risk factor; POTS (postural orthostatic tachycardia syndrome); Metabolic syndrome; Family history of heart disease; Syncope, unspecified syncope type; Family history of diabetes mellitus Start: 10-24-2024 End: 10-24-2024 [facility] Start: 10-18-2024 End: 10-18-2024 Refill Assumpta Chandan [employer] Work Phone: [facility] Comment on above: POTS (postural ortho static tachycardia syndrome); Syncope, unspecified syncope type Start: 10-14-2024 End: 10-16-2024 [facility] ST[facility]FF [employer] Work Phone: [facility] [facility] Comment on above: POTS (postural ortho static tachycardia syndrome); Syncope, unspecified syncope type Start: 10-12-2024 End: 10-12-2024 Office outpatient visit 15 minutes Olga Lidia Menon MD Work Phone: [facility] Comment on above: POTS (postural ortho static tachycardia syndrome) Start: 10-12-2024 End: 10-12-2024 ambulatory [facility] Start: 10-10-2024 End: 10-11-2024 Orders Only Assum[employer] Chandan [employer] Work Phone: [facility] Comment on above: Insulin resistance Start: 09-26-2024 End: 09-26-2024 Orders Only [employer] Chandan Andino STAFF [employer] Work Phone: [facility] Comment on above: Insulin resistance ( Primary Dx) Insulin, Lipid panel Start: 09-22-2024 End: 09-22-2024 Office outpatient new 45 minutes Cristiane Andino STAFF RN-REMELT OPERATOR Work Phone: [facility] Comment on above: POTS (postural ortho static tachycardia syndrome) (Primary Dx); Syncope, unspecified syncope type; Prediabetes; Iron deficiency anemia, unspecified iron deficiency anemia type; PCOS (polycystic ovarian syndrome); Encounter for lipid screening for cardiovascular disease Start: 09-22-2024 End: 09-22-2024 Refill Estiven Mendoza STAFF RN-REMELT OPERATOR Work Phone: [facility] Start: 08-29-2024 End: 08-31-2024 ambulatory NO PCP NO PCP [facility] Start: 08-29-2024 End: 08-31-2024 Evaluation and management of inpatient Nora Chan MD Work Phone: [facility] Comment on above: Syncope, unspecified syncope type (Primary Dx); POTS (postural orthostatic tachycardia syndrome) Start: 07-28-2024 End: 07-28-2024 Bamboo flowsheet Ernesto Dave NP Work Phone: [facility] Start: 07-28-2024 End: 07-28-2024 Bamboo flowsheet Ernesto Dave NP Work Phone: [facility] Start: 07-28-2024 End: 07-28-2024 Office outpatient new 30 minutes Ernesto Dave NP Work Phone: [facility] Comment on above: Dislocation of left patella, initial encounter (Primary Dx); Acute pain of left knee Start: 07-28-2024 End: 07-28-2024 ambulatory ERNESTO DAVE Not Available Start: 07-26-2024 End: 07-26-2024 Emergency department patient visit DANIEL GARCIA [facility] Start: 07-23-2024 End: 07-23-2024 ambulatory PHYSICIAN NO [facility] Work Phone: Start: 07-23-2024 End: 07-23-2024 Patient encounter procedure PHYSICIAN NO [facility] Work Phone: Start: 07-19-2024 End: 07-19-2024 Office outpatient visit 15 minutes [facility] 1 [facility] Comment on above: Missed menses (Prima ry Dx); Encounter for insertion of Mirena IUD Start: 07-19-2024 End: 07-19-2024 ambulatory NO PCP NO PCP [facility] Start: 07-19-2024 ambulatory KESHA JUNISAÍAS [facility] Start: 07-15-2024 End: 07-15-2024 Office outpatient visit 15 minutes Liz Mckeon MD Work Phone: [facility] Comment on above: Recurrent syncope (P rimary Dx); Heart palpitations; Inappropriate sinus tachycardia; POTS (postural orthostatic tachycardia syndrome) Start: 07-15-2024 End: 07-15-2024 ambulatory LIZ MCKEON [facility] Start: 07-14-2024 End: 07-14-2024 Telephone encounter Eulalia Torres C[facility] Start: 07-02-2024 End: 07-02-2024 Emergency department patient visit Elisa Arce MD Work Phone: [facility] Emergency Department Comment on above: Vaginal bleeding (Pr imary Dx); Miscarriage Start: 06-30-2024 ambulatory MAVIS ROCK [facility] Start: 06-29-2024 End: 06-29-2024 Office outpatient visit [facility] Comment on above: Absence of menstruat ion (Primary Dx); Nausea and vomiting in ; Positive test; Right upper quadrant pain; Diarrhea, unspecified type Start: 06-29-2024 End: 06-29-2024 ambulatory MELISSA BARR [facility] Start: 06-28-2024 End: 06-28-2024 Emergency department patient visit [facility] Emergency Department Comment on above: Diarrhea, unspecifie d type (Primary Dx); Complication of in first trimester Start: 06-27-2024 End: 06-27-2024 Emergency department patient visit NO PCP NO PCP [facility] Start: 06-15-2024 End: 06-15-2024 Documentation procedure Juanita Avila [facility] - Medical Oncology Start: 06-14-2024 End: 06-14-2024 Emergency department patient visit NO PCP NO PCP [facility] Start: 04-13-2024 End: 04-13-2024 Emergency department patient visit NO PCP NO PCP [facility] Start: 04-11-2024 End: 04-11-2024 ambulatory PHYSICIAN NO [facility] Work Phone: Start: 04-11-2024 End: 04-11-2024 Patient encounter procedure PHYSICIAN NO [facility] Work Phone: Start: 03-18-2024 End: 03-18-2024 Telephone encounter Argelia Francois [facility] Start: 03-03-2024 Registered Recurring PHYSICIAN NO [facility] Start: 03-03-2024 ambulatory Alpesh Connelly acility:[facility] Start: 02-17-2024 End: 02-17-2024 Emergency department patient visit NO PCP NO PCP [facility] Start: 12-29-2023 End: 12-29-2023 ambulatory [facility] Work Phone: Start: 12-29-2023 End: 12-29-2023 Patient encounter procedure [facility] [place] Work Phone: Start: 12-29-2023 End: 12-29-2023 Office outpatient new 30 minutes Dennis Ayers MD Work Phone: [facility] Comment on above: POTS (postural ortho static tachycardia syndrome) (Primary Dx) Start: 12-29-2023 End: 12-29-2023 ambulatory BEATRIZ KEBEDE [facility] Start: 12-28-2023 End: 12-28-2023 Telephone encounter Argelia Francois CMA [facility] Start: 12-07-2023 End: 12-07-2023 Emergency department patient visit NO PCP NO PCP [facility] Start: 11-30-2023 End: 12-02-2023 Telephone encounter Jarad Garner RN [facility] Start: 09-18-2023 End: 09-18-2023 Orders Only Beatriz Kebede MD Work Phone: [facility] Agriculture Scientist Sign In Start: 08-28-2023 End: 08-28-2023 Office outpatient new 30 minutes Beatriz Kebede MD Work Phone: [facility] Comment on above: Recurrent syncope (P rimary Dx); Inappropriate sinus tachycardia ([facility]) Start: 08-28-2023 End: 09-16-2023 ambulatory BEATRIZ KEBEDE [facility] Start: 08-27-2023 End: 08-27-2023 Telephone encounter Eulalia Brian CLARK [facility] Start: 08-23-2023 End: 08-23-2023 Emergency department patient visit [facility] ED Comment on above: Orthostasis (Primary Dx); Syncope and collapse Start: 07-06-2023 End: 07-07-2023 Emergency department patient visit HILTON BOWIE [facility] Start: 06-12-2023 End: 06-12-2023 Office outpatient visit [address] - Women's Services Comment on above: Benign essential tanna roscopic hematuria (Primary Dx); History of depression Start: 05-08-2023 [facility] Start: 05-08-2023 End: 05-08-2023 [facility] Comment on above: Encounter for routin e follow-up (Primary Dx); Counseling for initiation of control method; control counseling Start: 04-14-2023 Encounter No [facility] Start: 04-13-2023 Encounter No No Pcp [facility] 3E NICU Start: 04-10-2023 Encounter No No Pcp [facility] 3E NICU Start: 04-08-2023 Encounter No No [facility] 3[facility] Start: 04-08-2023 End: 04-08-2023 care visit [facility] Cn 2 [facility] - [facility] Services Comment on above: Heart palpitations ( Primary Dx) Start: 04-07-2023 Encounter No No Pcp [facility] 3W NICU Start: 04-06-2023 Encounter No No Pcp [facility] 3W NICU Start: 03-31-2023 End: 04-03-2023 Evaluation and management of inpatient Marilynn Pacheco Symone Jacques APRN-CNM Work Phone: [facility] - GEN 4 Start: 03-27-2023 End: 03-27-2023 ambulatory Tth M[facility] Nst1 [facility] Comment on above: Obesity affecting pr egnancy, antepartum, unspecified obesity type Start: 03-26-2023 Telephone encounter Marilynn Pacheco Symone Jacques STAFF RN-CNM Work Phone: [facility] - Labor Start: 03-25-2023 End: 03-25-2023 Subsequent care visit [facility] Comment on above: GA: 38w1d Start: 03-24-2023 End: 03-24-2023 ambulatory Tth Mfm Nst1 [facility] Comment on above: Obesity affecting pr egnancy, antepartum, unspecified obesity type Start: 03-19-2023 Telephone encounter Melissa Barr STAFF RN-CNM Work Phone: [facility] Start: 03-19-2023 End: 03-19-2023 ambulatory Tth Mfm Nst1 [facility] Comment on above: Obesity affecting pr egnancy, antepartum, unspecified obesity type Start: 03-18-2023 Telephone encounter Melissa Mckenna Momo STAFF RN-CNM Work Phone: [facility] Start: 03-18-2023 End: 03-18-2023 Subsequent care visit [facility] Cn 1 [facility] Comment on above: GA: 37w1d Start: 03-17-2023 Telephone encounter Es Avila [facility] Start: 03-12-2023 End: 03-12-2023 Subsequent care visit [facility] Cn 2 [facility] Comment on above: GA: 36w2d Start: 03-12-2023 End: 03-12-2023 ambulatory Tth Mfm Nst1 [facility] Comment on above: Obesity affecting pr egnancy, antepartum, unspecified obesity type Start: 03-10-2023 End: 03-10-2023 Office outpatient visit 15 minutes Richie Farnsworth DO Work Phone: [facility] Comment on above: Heart palpitations ( Primary Dx) Start: 03-09-2023 Telephone encounter Eulalia Torres CMA [facility] Start: 03-08-2023 Telephone encounter Mavis Rock STAFF RN-CNM Work Phone: [facility] Start: 03-05-2023 Telephone encounter Melissa Mckenna Momo STAFF RN-CNM Work Phone: [facility] Start: 03-05-2023 End: 03-05-2023 ambulatory Tth Mfm Nst1 [facility] Comment on above: Obesity affecting pr egnancy, antepartum, unspecified obesity type Start: 03-05-2023 End: 03-05-2023 Subsequent [facility] Comment on above: GA: 35w2d Start: 02-26-2023 Documentation procedure Hailey Camacho on RN [facility] Start: 02-26-2023 Telephone encounter Cathryn Eric STAFF RN-CNM Work Phone: [facility] Start: 02-25-2023 Telephone encounter Marilynn Mockcarroll STAFF RN-CNM Work Phone: [facility] Start: 09-08-2022 End: 09-08-2022 ambulatory Jolene Love Other [employer] Other Start: 09-08-2022 Office outpatient vi sit 25 minutes Jolene Love [facility] Start: 12-04-2021 End: 12-05-2021 ambulatory SHELBIE STEF Facility:[facility] Start: 12-03-2021 End: 12-03-2021 ambulatory Shelbie Stef Other [employer] Other Start: 12-03-2021 Office outpatient vi sit 15 minutes Shelbie Stef [facility] Start: 10-30-2021 End: 10-30-2021 ambulatory FAHAD ECHEVARRIA Facility:[facility] Start: 10-29-2021 End: 10-29-2021 ambulatory Shelbie Stef Other [employer] Other Start: 10-29-2021 Office outpatient vi sit 15 minutes Shelbie Stef [facility] Start: 10-27-2021 End: 10-27-2021 Emergency department patient visit Fern Busch DO Work Phone: [facility] ED Comment on above: Dizziness (Primary D x); Nonintractable headache, unspecified chronicity pattern, unspecified headache type Start: 05-19-2021 (URG) Urgent Care Visit Glenys isaac [facility] Start: 05-19-2021 End: 05-19-2021 ambulatory Glenys [place] Other [employer] Other Start: 02-20-2021 (URG) Urgent Care Visit Glenys isaac [facility] Start: 02-20-2021 End: 02-20-2021 ambulatory Glenys Cruzmond Other [employer] Other Start: 08-25-2019 End: 08-26-2019 Patient encounter procedure [facility] Start: 08-25-2019 End: 08-25-2019 Subsequent hospital visit by physician RON BATISTA [facility] Procedures Date Procedure Procedure Detail Performing Clinician Start: 10-24-2024 Follow-up visit Follow-up ASSUMPT A N NNAFROY Start: 10-24-2024 Adult depression scr eening assessment Assumpta Karleneafroy STAFF RN-REMELT OPERATOR Work Phone: Start: 10-12-2024 Follow-up visit Follow-up OLGA LIDIA YOUNG Start: 09-22-2024 Adult depression scr eening assessment Estiven Mendoza STAFF RN-REMELT OPERATOR Work Phone: Start: 08-31-2024 Comprehensive metabo lic panel Estiven Mendoza STAFF RN-REMELT OPERATOR Work Phone: Start: 08-31-2024 EXTRA TUBES Prema Reyes MD Work Phone: Start: 08-31-2024 EXTRA TUBES BLUE TOP Ru rao Reyes MD Work Phone: Start: 08-31-2024 EXTRA TUBES SST TOP Ruq bony Reyes MD Work Phone: Start: 08-30-2024 Duplex scan extracra nial art compl bi study Estiven Mendoza STAFF RN-REMELT OPERATOR Work Phone: Start: 08-30-2024 Echo tthrc r-t 2d w/wom-mode compl spec&colr d Estiven Mendoza STAFF RN-REMELT OPERATOR Work Phone: Start: 08-30-2024 Ct head/brain w/o co ntrast material Estiven Mendoza STAFF RN-REMELT OPERATOR Work Phone: Start: 08-30-2024 RESP PATHOGENS PANEL/SARS-COV-2 Prema Reyes MD Work Phone: Start: 08-30-2024 Urine test visual color cmprsn meths Estiven Mendoza STAFF RN-REMELT OPERATOR Work Phone: Start: 08-30-2024 End: 08-30-2024 Comprehensive metabolic panel Estiven Mendoza STAFF RN-REMELT OPERATOR Work Phone: Start: 08-30-2024 EXTRA TUBES Prema Reyes MD Work Phone: Start: 08-30-2024 EXTRA TUBES BLUE TOP Daniel Reyes MD Work Phone: Start: 08-30-2024 EXTRA TUBES SST TOP Danielq bony Reyes MD Work Phone: Start: 08-29-2024 Assay of troponin quantitative Nora Chan MD Work Phone: Start: 08-29-2024 Radiologic exam ches t single view Nora Chan MD Work Phone: Start: 08-29-2024 Basic metabolic pane l calcium total Nora Chan MD Work Phone: Start: 08-29-2024 EXTRA TUBES Nora Chan MD Work Phone: Start: 08-29-2024 EXTRA TUBES BLUE TOP Cristina Chan MD Work Phone: Start: 08-29-2024 Ecg routine ecg w/le ast 12 lds trcg only w/o i&r Nora Chan MD Work Phone: Start: 07-23-2024 X-ray of left knee, four views PHYSICIAN NO FAMILY Start: 07-02-2024 Us preg uterus real time [...] visual color cmprsn meths Mavis A Cherri STAFF RN-CNM Work Phone: Start: 06-28-2024 Us preg uterus real time w/image dcmtn transvag Fern Busch DO Work Phone: Start: 06-28-2024 End: 06-28-2024 Comprehensive metabolic panel Unknown Provider Result Start: 12-29-2023 Ecg routine ecg w/le ast 12 lds w/i&r Beatriz Kebede MD Work Phone: Start: 08-28-2023 Follow-up visit Follow-up BEATRIZ KEBEDE Start: 08-23-2023 Radiologic exam ches t single view Elisa Arce MD Work Phone: Start: 08-23-2023 Basic metabolic pane l calcium total Elisa Arce MD Work Phone: Start: 08-23-2023 Ecg routine ecg w/le ast 12 lds w/i&r Elisa Arce MD Work Phone: Start: 06-12-2023 Adult depression scr eening assessment Chs 2 Start: 05-08-2023 Urine test visual color cmprsn meths Mireya Jean-Baptiste STAFF RN-CNM Work Phone: Start: 05-08-2023 Adult depression scr eening assessment Pao Teixeira [employer] Start: 04-01-2023 End: 04-01-2023 Blood gases any combination ph pco2 po2 co2 hco3 Augustine Richter MD Work Phone: Start: 04-01-2023 REPEATED ABORH Marilynn M Symone Mockjannelson STAFF RN-CNM Work Phone: Start: 03-31-2023 Antibody screen Marilynn Jacques STAFF RN-CNM Work Phone: Start: 03-31-2023 Blood count complete automated Marilynn Jacques STAFF RN-CNM Work Phone: Start: 03-31-2023 End: 03-31-2023 Blood typing serologic abo Marilynn Jacques STAFF RN-CNM Work Phone: Start: 03-31-2023 REPEATED ABORH Marilynn Jacques STAFF RN-CNM Work Phone: Start: 03-31-2023 Drug tst prsmv instr mnt chem analyzers pr date Marilynn Jacques STAFF RN-CNM Work Phone: Start: 03-27-2023 nonstress test Ir marvel Smith MD Work Phone: Start: 03-25-2023 nonstress test Ir marvel Smith MD Work Phone: Start: 03-19-2023 nonstress test Mi ldred R Bruscianelli STAFF RN-CNM Work Phone: Start: 03-13-2023 nonstress test Mi ldred R Bruscsarthak STAFF RN-CNM Work Phone: Start: 03-05-2023 nonstress test Mi ldred R Bruscsarthak STAFF RN-CNM Work Phone: Start: 10-21-2022 Adult depression scr eening assessment Marilynn Jcaques STAFF RN-CNM Work Phone: Start: 10-27-2021 Urinalysis microscop ic only Fern Busch DO Work Phone: Start: 10-27-2021 Urnls dip stick/tabl et rgnt auto w/o microscopy Fern Busch DO Work Phone: Start: 10-27-2021 Ct head/brain w/o co ntrast material Fern Busch DO Work Phone: Start: 10-27-2021 Basic metabolic pane l calcium total Fern Busch DO Work Phone: Start: 01-02-2021 History of tonsillectomy S/P tonsill ectomy Marilynn Jacques STAFF RN-CNM Work Phone: Start: 08-25-2019 Level iv surg pathol ogy gross&microscopic exam SRI ROWE Plan of Treatment Date Care Activity Detail Author Start: 2077 Respiratory Syncytial Virus (RSV) or age 60 yrs+ (1 - 1-dose 75+ series) Respiratory Syncytial Virus (RSV) or age 60 yrs+ (1 - 1-dose 75+ series) [facility] Start: 01-06-2033 DTaP,Tdap and Td Vaccines (8 - Td or Tdap) DTaP,Tdap and Td Vaccines (8 - Td or Tdap) [facility] Start: 01-06-2033 DTaP/Tdap/Td vaccine (8 - Td or Tdap) DTaP/Tdap/Td vaccine (8 - Td or Tdap) [facility] Start: 10-24-2025 Adult BMI Screening Adult BMI Screening [facility] Start: 10-24-2025 Depression Screening Depression Screening [facility] Start: 10-12-2025 Adult BMI Screening Adult BMI Screening [facility] Start: 10-12-2025 Tobacco Screening Tobacco Screening [facility] Start: 09-22-2025 Adult BMI Follow Up Plan Adult BMI Follow Up Plan [facility] Start: 09-22-2025 Adult BMI Screening Adult BMI Screening [facility] Start: 09-22-2025 Depression Screening Depression Screening [facility] Start: 09-22-2025 Tobacco Screening Tobacco Screening [facility] Start: 07-19-2025 Adult BMI Screening Adult BMI Screening [facility] Start: 07-19-2025 Tobacco Screening Tobacco Screening [facility] Start: 07-15-2025 Adult BMI Screening Adult BMI Screening [facility] Start: 07-15-2025 Tobacco Screening Tobacco Screening [facility] Start: 06-29-2025 Adult BMI Screening Adult BMI Screening [facility] Start: 06-29-2025 Tobacco Screening Tobacco Screening [facility] Start: 06-14-2025 Adult BMI Screening Adult BMI Screening [facility] Start: 06-14-2025 Tobacco Screening Tobacco Screening [facility] Start: 01-23-2025 End: 01-23-2025 Patient encounter procedure 01/23/2025 1:00 PM EST Office Visit [facility] [address] [place] [address] Pacheco Hernandez MD [address] [place] [address] [facility] Start: 12-28-2024 Adult BMI Screening Adult BMI Screening [facility] Start: 12-28-2024 Tobacco Screening Tobacco Screening [facility] Start: 12-06-2024 Adult BMI Screening Adult BMI Screening [facility] Start: 12-06-2024 Tobacco Screening Tobacco Screening [facility] Start: 11-24-2024 End: 11-24-2024 Patient encounter procedure 11/24/2024 3:20 PM EDT Office Visit [facility] [address] [place] [address] Cristiane Andino, STAFF RN-REMELT OPERATOR [address] [facility] [place] [address] [facility] Start: 11-01-2024 DTaP/Tdap/Td vaccine (7 - Td or Tdap) DTaP/Tdap/Td vaccine (7 - Td or Tdap) [facility] Start: 10-31-2024 Influenza vaccination [facility] Start: 10-24-2024 End: 10-24-2024 Patient encounter procedure 10/24/2024 3:20 PM EDT Office Visit [facility] [address] [place] [address] Sina Assumpta N, STAFF RN-REMELT OPERATOR [address] [facility] [place] [phone] [facility] Start: 10-12-2024 End: 10-12-2024 Patient encounter procedure 10/12/2024 2:30 PM EDT Office Visit [facility] [address] [place] [phone] Olga Lidia Menon MD [address] [place] [address] [facility] Start: 09-30-2024 Influenza vaccination Flu vaccine (Season Ended) [facility] Start: 08-27-2024 Adult BMI Screening Adult BMI Screening [facility] Start: 08-27-2024 Tobacco Screening Tobacco Screening [facility] Start: 08-25-2024 End: 08-25-2024 Patient encounter procedure 08/25/2024 3:30 PM EDT Office Visit [facility] [address] [place] [place] [phone] Ernesto Dave, RESIDENTIAL TREATMENT STAFF [address] [place], [place] [phone] [facility] Start: 08-16-2024 End: 08-16-2024 Patient encounter procedure 08/16/2024 1:00 PM EDT Office Visit [facility] - [facility]'s Services [address] [place] [phone] [facility] Start: 07-28-2024 End: 07-28-2024 Patient encounter procedure 07/28/2024 2:00 PM EDT Office Visit [facility] [address] [place] [phone] Ernesto Dave, RESIDENTIAL TREATMENT STAFF [address] [place], [place] [phone] Arrived [facility] Comment on above: Arrived Start: 07-19-2024 End: 07-19-2024 Patient encounter procedure [facility] Start: 07-15-2024 End: 07-15-2024 Patient encounter procedure 07/15/2024 1:45 PM EDT Office Visit [facility] [address] [place], [place] [address] [address] Liz Mckeon MD [address] [facility] [place] [address] [facility] Start: 07-04-2024 End: 08-02-2024 hCG, Quantitative, hCG, Quantitative, Lab Routine Vaginal bleeding Miscarriage Expected: 07/04/2024, Expires: 08/02/2024 [employer] Work Phone: Comment on above: Expected: 07/04/2024, Expires: Start: 07-01-2024 End: 06-28-2025 hCG, Quantitative, hCG, Quantitative, Lab Routine Complication of in first trimester Expected: 07/01/2024, Expires: 06/28/2025 [employer] Comment on above: Expected: 07/01/2024, Expires: Start: 06-30-2024 End: 06-29-2025 hCG, quantitative, hCG, quantitative, Lab Routine Positive test Expected: 06/30/2024 (Approximate), Expires: 06/29/2025 [employer] Work Phone: Comment on above: Expected: 06/30/2024 (Approximate), Expi res: 06/29/2025 Start: 06-29-2024 Screening for Chlamydia trachomatis Chlamydia Screening [employer] Start: 06-29-2024 End: 06-29-2025 US Abdomen limited Ultrasound abdomen limited Imaging Routine Right upper quadrant pain Expected: 06/29/2024, Expires: 06/29/2025 [employer] Comment on above: Expected: 06/29/2024, Expires: Start: 06-11-2024 Adult BMI Screening Adult BMI Screening [facility] Start: 06-11-2024 Depression Screening Depression Screening [facility] Start: 06-11-2024 Tobacco Screening Tobacco Screening [facility] Start: 05-07-2024 Adult BMI Screening Adult BMI Screening [facility] Start: 05-07-2024 Depression Screening Depression Screening [facility] Start: 05-07-2024 Tobacco Screening Tobacco Screening [facility] Start: 04-08-2024 Tobacco Screening Tobacco Screening [facility] [facility] Start: 04-03-2024 Tobacco Screening Tobacco Screening [facility] Start: 03-31-2024 Adult BMI Screening Adult BMI Screening [facility] Start: 03-27-2024 Tobacco Screening Tobacco Screening [facility] Start: 03-25-2024 Adult BMI Screening Adult BMI Screening [facility] Start: 03-25-2024 Tobacco Screening Tobacco Screening [facility] Start: 03-24-2024 Tobacco Screening Tobacco Screening [facility] Start: 03-21-2024 End: 03-21-2024 Patient encounter procedure 03/21/2024 3:00 PM EST Office Visit [facility] [address] [place] [id number] Rigoberto Almanzar MD [facility] [place] [address] [facility] Start: 03-18-2024 Adult BMI Screening Adult BMI Screening [facility] Start: 03-18-2024 Tobacco Screening Tobacco Screening [facility] Start: 03-17-2024 Tobacco Screening Tobacco Screening [facility] Start: 03-16-2024 Adult BMI Screening Adult BMI Screening [facility] Start: 03-12-2024 Adult BMI Screening Adult BMI Screening [facility] Start: 03-12-2024 Tobacco Screening Tobacco Screening [facility] Start: 03-08-2024 Adult BMI Screening Adult BMI Screening [facility] Start: 03-08-2024 Tobacco Screening Tobacco Screening [facility] Start: 03-05-2024 Adult BMI Screening Adult BMI Screening [facility] Start: 03-05-2024 Tobacco Screening Tobacco Screening [facility] Start: 02-27-2024 Adult BMI Screening Adult BMI Screening [facility] Start: 02-26-2024 Tobacco Screening Tobacco Screening [facility] Start: 02-25-2024 Tobacco Screening Tobacco Screening [facility] Start: 02-20-2024 Adult BMI Screening Adult BMI Screening [facility] Start: 02-08-2024 Screening for Chlamydia trachomatis Chlamydia Screening [facility] Start: 12-29-2023 End: 12-29-2023 Patient encounter procedure [facility] Start: 11-30-2023 Screening for malignant neoplasm of cervix Pap Smear [facility] Start: 11-01-2023 COVID-19 Vaccine () COVID-19 Vaccine () [facility] Start: 11-01-2023 COVID-19 Vaccine () COVID-19 Vaccine () [facility] Start: 11-01-2023 Influenza vaccination Influenza Vaccine [facility] Start: 10-22-2023 Depression Screening Depression Screening [facility] Start: 08-28-2023 End: 08-28-2023 Patient encounter procedure 08/28/2023 1:15 PM EDT [facility] [address] [place] [id number] Beatriz Kebede MD [address] [place] [address] [facility] Start: 06-12-2023 End: 06-12-2023 Patient encounter procedure 06/12/2023 1:00 PM EDT Office Visit [facility] [address] [place] [id number] [facility] Start: 05-08-2023 End: 05-08-2023 ambulatory 05/08/2023 1:00 PM EST Visit [facility] [address] [place] [id number] [facility] Start: 04-08-2023 End: 04-08-2023 Telemedicine consultation with patient 04/08/2023 1:45 PM EST Telemedicine [facility] [address] [place] [address] [facility] Start: 03-31-2023 End: 03-31-2023 Patient encounter procedure 03/31/2023 8:00 AM EST Procedure visit [facility] [address] [place] [address] [facility] Start: 03-27-2023 End: 03-27-2023 ambulatory 03/27/2023 1:45 PM EST Support Visit [facility] [address] [place] [address] [facility] Start: 03-25-2023 End: 03-25-2023 Patient encounter procedure 03/25/2023 3:00 PM EST Routine [facility] [address] [place] [address] [facility] Start: 03-24-2023 End: 03-24-2023 Patient encounter procedure 03/24/2023 2:45 PM EST Appointment [facility] [address] [place] [address] [facility] Start: 03-24-2023 End: 03-24-2023 ambulatory 03/24/2023 2:15 PM EST Support Visit [facility] [address] [place] [address] [facility] Start: 03-19-2023 End: 03-19-2023 ambulatory 03/19/2023 1:15 PM EST Support Visit [facility] [address] [place] [address] [facility] Start: 03-18-2023 End: 03-18-2023 Patient encounter procedure [facility] Start: 03-16-2023 End: 03-16-2023 Patient encounter procedure 03/16/2023 2:00 PM EST Appointment [facility] [address] [place] [address] [facility] Start: 03-16-2023 End: 03-16-2023 ambulatory 03/16/2023 1:15 PM EST Support Visit [facility] [address] [place] [address] [facility] Start: 03-12-2023 End: 03-12-2023 Patient encounter procedure [facility] Start: 03-12-2023 End: 03-12-2023 ambulatory 03/12/2023 12:45 PM EST Support Visit [facility] [place] [id number] [place] [address] [facility] Start: 03-10-2023 End: 03-10-2023 Patient encounter procedure 03/10/2023 4:15 PM EST Office Visit [facility] [place] [address] Richie Farnsworth, DO [address] [place] [address], [address] [place] [address] [facility] Start: 03-05-2023 End: 03-05-2023 ambulatory 03/05/2023 1:15 PM EST Support Visit [facility] [address] [place] [address] [facility] Start: 03-05-2023 End: 03-05-2023 Patient encounter procedure [facility] Start: 02-25-2023 End: 02-25-2023 Patient encounter procedure 02/25/2023 1:15 PM EST Office Visit [facility] [address] [place] [address] Lin Rushing MD [address] [place] [address] [facility] Start: 02-25-2023 End: 02-25-2023 Patient encounter procedure 02/25/2023 9:45 AM EST Appointment [facility] [address] [place] [address] [facility] Start: 02-25-2023 End: 02-25-2023 ambulatory 02/25/2023 9:15 AM EST Support Visit [facility] [address] [place] [address] [facility] Start: 10-31-2022 COVID-19 Vaccine ( season) COVID-19 Vaccine ( season) [facility] Start: 10-31-2021 Influenza vaccination Flu vaccine (#1) [facility] Start: 2020 Adult BMI Follow Up Plan Adult BMI Follow Up Plan [facility] Start: 2020 Hepatitis C screening Hepatitis C screen [facility] Start: 11-21-2020 COVID-19 Vaccine (2 - Pfizer series) COVID-19 Vaccine (2 - Pfizer series) [facility] [employer] Start: 2018 Screening for Chlamydia trachomatis [facility] [employer] Start: 2017 HIV screening HIV screen [facility] Start: 2017 HPV vaccine (1 - 3-dose series) HPV vaccine (1 - 3-dose series) [facility] Start: 2014 Depression Screen Depression Screen [facility] Start: 2013 HPV vaccine (1 - 2-dose series) HPV vaccine (1 - 2-dose series) [facility] End: 06-29-2025 Amylase Amylase Lab Routine Right upper quadrant pain 1 Occurrences starting 06/29/2024 until 06/29/2025 [employer] Comment on above: 1 Occurrences starting 06/29/2024 until 06/29/2025 End: 06-11-2024 Bacteria identified in Urine by Culture Urine culture Microbiology Routine Benign essential microscopic hematuria 1 Occurrences starting 06/12/2023 until 06/11/2024 [employer] Work Phone: Comment on above: 1 Occurrences starting 06/12/2023 until 06/11/2024 Bacteria identified in Urine by Culture Urine culture Microbiology Routine Benign essential microscopic hematuria 06/12/2023 8:15 PM EDT [employer] End: 06-28-2024 Blood Occult Stool Screen #1 Blood Occult Stool Screen #1 Lab STAT One Time for 1 Occurrences starting 06/28/2024 until 06/28/2024 [employer] Comment on above: One Time for 1 Occurrences starting 06/01 until 06/28/2024 End: 03-18-2024 CBC W Auto Differential panel - Blood CBC auto differential Lab Routine Anemia during in third trimester 1 Occurrences starting 03/18/2023 until 03/18/2024 MD [facility] Work Phone: Comment on above: 1 Occurrences starting 03/18/2023 until 03/18/2024 End: 06-28-2024 Clostridium Difficile Toxin/Antigen Clostridium Difficile Toxin/Antigen Microbiology STAT 36 Hours Expiring for 36 Hours starting 06/28/2024 until 06/28/2024 [employer] Comment on above: 36 Hours Expiring for 36 Hours starting 06/28/2024 until 06/28/2024 EKG 12 Lead EKG 12 Lead ECG STAT 08/23/2023 11:12 AM EDT [employer] Work Phone: End: 08-23-2023 Extended cardiac holter monitor (3 day-14 day) [employer] Comment on above: One Time for 1 Occurrences starting 08/01 until 08/23/2023 End: 03-19-2024 nonstress test - Maternal Medicine nonstress test - Maternal Medicine OB Routine Obesity affecting , antepartum, unspecified obesity type 2x/wk for 6 Occurrences starting 03/19/2023 until 03/19/2024 [employer] Work Phone: Comment on above: 2x/wk for 6 Occurrences starting 024 until 03/19/2024 End: 06-28-2024 Gastrointestinal Panel, Molecular Gastrointestinal Panel, Molecular Microbiology STAT One Time for 1 Occurrences starting 06/28/2024 until 06/28/2024 [employer] Comment on above: One Time for 1 Occurrences starting 06/01 until 06/28/2024 End: 06-28-2024 Giardia / Cryptosporidum antigens, DFA Giardia / Cryptosporidum antigens, DFA Lab STAT One Time for 1 Occurrences starting 06/28/2024 until 06/28/2024 [employer] Comment on above: One Time for 1 Occurrences starting 06/01 until 06/28/2024 End: 07-19-2025 hCG, quantitative, hCG, quantitative, Lab Routine Missed menses 1 Occurrences starting 07/19/2024 until 07/19/2025 [employer] Work Phone: Comment on above: 1 Occurrences starting 07/19/2024 until 07/19/2025 End: 09-22-2025 Insulin Insulin Lab Routine Prediabetes PCOS (polycystic ovarian syndrome) 1 Occurrences starting 09/22/2024 until 09/22/2025 [employer] Work Phone: Comment on above: 1 Occurrences starting 09/22/2024 until 09/22/2025 End: 09-22-2025 Lipid panel Lipid panel Lab Routine Encounter for lipid screening for cardiovascular disease 1 Occurrences starting 09/22/2024 until 09/22/2025 [employer] Comment on above: 1 Occurrences starting 09/22/2024 until 09/22/2025 End: 06-28-2024 SPECIMEN REJECTION [employer] Comment on above: Once for 1 Occurrences starting 06/29/19 until 06/28/2024 End: 03-11-2024 Strep B screen Strep B screen Microbiology Routine High-risk first of young woman, third trimester 36 weeks gestation of 1 Occurrences starting 03/12/2023 until 03/11/2024 MD [facility] Work Phone: Comment on above: 1 Occurrences starting 03/12/2023 until 03/11/2024 Streptococcus agalac tiae [Presence] in Vag+Rectum by Organism specific culture Strep B screen Microbiology Routine High-risk first of young woman, third trimester 36 weeks gestation of 03/12/2023 7:33 PM EST [employer] End: 08-26-2019 Surgical Pathology Surgical Pathology Lab Routine Once for 1 Occurrences starting 08/26/2019 until 08/26/2019 [facility] Comment on above: Once for 1 Occurrences starting 08/26/19 20 until 08/26/2019 End: 06-28-2024 Urinalysis Urinalysis Lab STAT One Time for 1 Occurrences starting 06/28/2024 until 06/28/2024 [facility] Comment on above: One Time for 1 Occurrences starting 06/01 until 06/28/2024 Us preg uterus real time w/image dcmtn transvag US OB TRANSVAGINAL Imaging STAT 06/28/2024 5:50 PM EDT [facility] Work Phone: End: 03-05-2024 Vaginitis Panel PCR Vaginitis Panel PCR Microbiology Routine uterine contractions in third trimester, antepartum 1 Occurrences starting 03/05/2023 until 03/05/2024 [employer] [facility] Work Phone: Comment on above: 1 Occurrences starting 03/05/2023 until 03/05/2024 Vaginitis Panel PCR Vaginitis Pa cornelius PCR Microbiology Routine uterine contractions in third trimester, antepartum 03/05/2023 12:52 PM EST [facility] [facility] Immunizations Immunization Date Immunization Notes Care Provider Kenny chaves 04-02-2023 varicella zoster imm une globulin Marilynn Symone Jacques STAFF RN-CNM Work Phone[facility] 01-06-2023 tetanus toxoid, redu raad diphtheria toxoid, and acellular pertussis vaccine, adsorbed Marilynn Ashby Bojanic STAFF RN-CNM Work Phone: [facility] 11-24-2022 influenza virus vacc ine, unspecified formulation Chs 2 [facility] 10-31-2020 COVID-19, mRNA, LNP- S, PF, 30mcg/0.3mL Dose Marilynn Ashby Bojanic STAFF RN-CNM Work Phone: [facility] 04-30-2020 hepatitis A vaccine, pediatric/adolescent dosage, 2 dose schedule Marilynn Ashby Bojanic STAFF RN-CNM Work Phone: [facility] 04-30-2020 meningococcal B vacc ine, recombinant, OMV, adjuvanted Marilynn Ashby Bojanic STAFF RN-CNM Work Phone: [facility] 03-28-2020 meningococcal B vacc ine, recombinant, OMV, adjuvanted Marilynn Ashby Bojanic STAFF RN-CNM Work Phone: [facility] 03-28-2020 meningococcal oligosaccharide (groups A, C, Y and W-135) diphtheria toxoid conjugate vaccine (MCV4O) Marilynn Ashby Bojanic STAFF RN-CNM Work Phone: [facility] 01-20-2017 hepatitis A vaccine, pediatric/adolescent dosage, 2 dose schedule Marilynn Ashby Bojanic STAFF RN-CNM Work Phone: [facility] 11-01-2014 tetanus toxoid, redu raad diphtheria toxoid, and acellular pertussis vaccine, adsorbed Marilynn Ashby Bojanic STAFF RN-CNM Work Phone: [facility] 11-01-2014 varicella virus vaccine Salomon ine Ashby Bojanic STAFF RN-CNM Work Phone: [facility] 11-26-2007 diphtheria, tetanus toxoids and acellular pertussis vaccine Marilynn Ashby Bojanic STAFF RN-CNM Work Phone: [facility] 11-26-2007 measles, mumps and rubella virus vaccine Marilynn Ashby Bojanic STAFF RN-CNM Work Phone: [facility] 11-26-2007 poliovirus vaccine, inactivated Marilynn Ashby Bojanic STAFF RN-CNM Work Phone: [facility] 12-18-2005 diphtheria, tetanus toxoids and acellular pertussis vaccine Marilynn Ashby Bojanic STAFF RN-CNM Work Phone: [facility] 12-18-2005 haemophilus influenz ae type b vaccine, conjugate unspecified formulation Marilynn Ashby Bojanic STAFF RN-CNM Work Phone: [facility] 12-18-2005 haemophilus influenz ae type b vaccine, PRP-T conjugate Marilynn Ashby Bojanic STAFF RN-CNM Work Phone: [facility] 12-18-2005 measles, mumps and rubella virus vaccine Marilynn Ashby Bojanic STAFF RN-CNM Work Phone: [facility] 12-18-2005 measles, mumps, rube lla, and varicella virus vaccine Marilynn Ashby Bojanic STAFF RN-CNM Work Phone: [facility] 12-18-2005 varicella virus vaccine Salomon ine Ashby Bojanic STAFF RN-CNM Work Phone: [facility] 05-22-2004 diphtheria, tetanus toxoids and acellular pertussis vaccine Marilynn Ashby Bojanic STAFF RN-CNM Work Phone: [facility] 05-22-2004 DTaP-hepatitis B and poliovirus vaccine Marilynn Ashby Bojanic STAFF RN-CNM Work Phone: [facility] 05-22-2004 haemophilus influenz ae type b vaccine, conjugate unspecified formulation Marilynn Ashby Bojanic STAFF RN-CNM Work Phone: [facility] 05-22-2004 haemophilus influenz ae type b vaccine, PRP-T conjugate Marilynn Ashby Bojanic STAFF RN-CNM Work Phone: [facility] 05-22-2004 hepatitis B vaccine, adult dosage Marilynn Ashby Bojanic STAFF RN-CNM Work Phone: [facility] 05-22-2004 pneumococcal conjuga te vaccine, 13 valent Marilynn Ashby Bojanic STAFF RN-CNM Work Phone: [facility] 05-22-2004 pneumococcal conjuga te vaccine, 7 valent Marilynn Ashby Bojanic STAFF RN-CNM Work Phone: [facility] 05-22-2004 poliovirus vaccine, inactivated Marilynn Ashby Bojanic STAFF RN-CNM Work Phone: [facility] 09-07-2003 diphtheria, tetanus toxoids and acellular pertussis vaccine Marilynn Ashby Bojanic STAFF RN-CNM Work Phone: [facility] 09-07-2003 DTaP-hepatitis B and poliovirus vaccine Marilynn Ashby Bojanic STAFF RN-CNM Work Phone: [facility] 09-07-2003 haemophilus influenz ae type b vaccine, conjugate unspecified formulation Marilynn Ashby Bojanic STAFF RN-CNM Work Phone: [facility] 09-07-2003 haemophilus influenz ae type b vaccine, PRP-T conjugate Marilynn Ashby Bojanic STAFF RN-CNM Work Phone: [facility] 09-07-2003 hepatitis B vaccine, adult dosage Marilynn Ashby Bojanic STAFF RN-CNM Work Phone: [facility] 09-07-2003 pneumococcal conjuga te vaccine, 13 valent Marilynn Ashby Bojanic STAFF RN-CNM Work Phone: [facility] 09-07-2003 pneumococcal conjuga te vaccine, 7 valent Marilynn Ashby Bojanic STAFF RN-CNM Work Phone: [facility] 09-07-2003 poliovirus vaccine, inactivated Marilynn Ashby Bojanic STAFF RN-CNM Work Phone: [facility] 04-25-2003 diphtheria, tetanus toxoids and acellular pertussis vaccine Marilynn Ashby Bojanic STAFF RN-CNM Work Phone: [facility] 04-25-2003 DTaP-hepatitis B and poliovirus vaccine Marilynn Ashby Bojanic STAFF RN-CNM Work Phone: [facility] 04-25-2003 haemophilus influenz ae type b vaccine, conjugate unspecified formulation Marilynn Ashby Bojanic STAFF RN-CNM Work Phone: [facility] 04-25-2003 haemophilus influenz ae type b vaccine, PRP-T conjugate Marilynn Ashby Bojanic STAFF RN-CNM Work Phone: [facility] 04-25-2003 hepatitis B vaccine, adult dosage Marilynn Ashby Bojanic STAFF RN-CNM Work Phone: [facility] 04-25-2003 pneumococcal conjuga te vaccine, 13 valent Marilynn Ashby Bojanic STAFF RN-CNM Work Phone: [facility] 04-25-2003 pneumococcal conjuga te vaccine, 7 valent Marilynn Ashby Bojanic STAFF RN-CNM Work Phone: [facility] 04-25-2003 poliovirus vaccine, inactivated Marilynn Ashby Bojanic STAFF RN-CNM Work Phone: [facility] 2002 hepatitis B vaccine, adult dosage Marilynn Ashby Bojanic STAFF RN-CNM Work Phone: [facility] NEGATED: Highlighted row has not occurred!06-14-2024 Human rabies vaccine from Chicken fibroblast culture Juanita Mitchell RN [facility] NEGATED: Highlighted row has not occurred!06-14-2024 rabies immune globulin Juanita Mitchell RN [facility] Payers Date Payer Category Payer Blue Cross Blue Shield BCBS [id number] 2024 Blue Cross Blue Shie ld Managed Care - Other ANTHEM [id number] 2024 Blue Cross Blue Shield [id number] 2023 Self-pay [id number] 2022 Medicaid [id number] 2022 Medicaid [id number] [id number] 2014 Unknown BCBS [place] - [place] P PO xxxxxxxxxxxx 2014-Present [address] [place] [address] xxxxxxxxxxxx [id number] 2002 Unknown [id number] 2.16.840.1.167962.3.579.2. 173 2002 Unknown [id number] 2.16.840.1.276990.3.579.2. 173 2002 Unknown [id number] 2.16.840.1.488259.3.579.2. 173 2002 Unknown [id number] 2.16.840.1.798200.3.579.2. 173 2002 Unknown [id number] 2.16.840.1.868730.3.579.2. 1285 2002 Unknown [id number] 2.16.840.1.046264.3.579.2. 1285 2002 Unknown [id number] 2.16.840.1.652552.3.579.2. 1285 2002 Unknown [id number] 2.16.840.1.512787.3.579.2. 1285 2002 Unknown [id number] 2.16.840.1.940770.3.579.2. 1285 2002 Unknown [id number] 2.16.840.1.500558.3.579.2. 1285 2002 Unknown [id number] 2.16.840.1.114825.3.579.2. 1285 2002 Unknown [id number] 2.16.840.1.725599.3.579.2. 1285 2002 Unknown [id number] 2.16.840.1.611729.3.579.2. 1285 2002 Unknown [id number] 2.16.840.1.360481.3.579.2. 1285 2002 Unknown [id number] 2.16.840.1.555298.3.579.2. 1285 2002 Unknown [id number] 2.16.840.1.744583.3.579.2. 1286 2002 Unknown [id number] 2.16.840.1.934187.3.579.2. 1286 2002 Unknown [id number] 2.16.840.1.893426.3.579.2. 1286 2002 Unknown [id number] 2.16.840.1.450579.3.579.2. 1286 2002 Unknown [id number] 2.16.840.1.890661.3.579.2. 1286 2002 Unknown [id number] 2.16.840.1.653313.3.579.2. 1286 2002 Unknown [id number] 2.16840.1.460122.3.579.2. 1286 2001 Unknown [id number] 2.840.1.198728.3.579.2. 1259 1973 Unknown [id number] 2.16840.1.779188.3.579.2. 593 1973 Unknown [id number] 2.16.840.1.493492.3.579.2. 593 1959 Unknown [id number] Unknown [id number] 2.16840.1.695544.3.579.2. 175 Unknown [id number] 2.16840.1.679049.3.579.2. 531 Unknown [id number] 2.16840.1.871079.3.579.2. 531 Social History Date Type Detail Facility Tobacco smoking stat us [facility]IS Unknown if ever smoked [facility] [place] Start: 2002 Sex Assigned At Not on file [place] Start: 09-18-2022 End: 08-29-2024 Sex Assigned At [facility] Start: 10-27-2021 End: 05-12-2022 Tobacco smoking status NHIS Never smoked tobacco [facility] [employer] [facility] Work Phone: Start: 10-27-2021 End: 05-12-2022 Tobacco use and exposure Smokeless tobacco non-user [employer] Work Phone: Start: 10-27-2021 End: 07-02-2024 Alcohol intake Lifetime non-drinker (finding) [employer] Work Phone: Start: 2002 Sex Assigned At Female [facility] Start: 02-17-2024 End: 07-15-2024 Alcoholic beverage intake Current non-drinker of alcohol (finding) [facility] Start: 09-18-2022 End: 08-29-2024 History of Social function [facility] Do you belong to any clubs or organizations such as presybeterian groups, unions, fraternal or athletic groups, or school groups? No [facility] Are you now , , , , never or living with a partner? Living with partner [facility] How often to you hav e a drink containing alcohol? Never [facility] How many standard dr inks containing alcohol do you have on a typical day? Patient does not drink [facility] Do you feel stress - tense, restless, nervous, or anxious, or unable to sleep at night because your mind is troubled all the time - these days [OSQ] Not at all [facility] Start: 10-05-2014 End: 07-24-2024 Sex Female (finding) [facility] Start: 07-15-2022 [facility] The thought of snehal camarena myself has occurred to me Hardly ever [facility] Start: 07-19-2024 End: 10-12-2024 Alcoholic beverage intake Current drinker of alcohol (finding) [facility] Are you now , , , , never or living with a partner? [facility] How hard is it for y ou to pay for the very basics like food, housing, medical care, and heating Not very hard [facility] Goals Date Patient Goal Desired Activity /State Personal health goal Comment on above: Formatting of this n ote might be different from the original. Evaluation of progress towards goal: Safe dc transition from hospital to home with family support. Functional Status Date Assessment Result Facility 10-24-2024 Generalized anxiety disorder 7 item (MARTY-7) [facility] 09-22-2024 Generalized anxiety disorder 7 item (MARTY-7) [facility] 08-29-2024 Total score [AUDIT-C] 0 08/30/19 4:54 PM EDT Nayla Billingsley RN [facility] of [place] Clinical Notes 02-20-2021 to 10-24-2024 Cristiane Andino APRN-JOCE - 10/24/2024 3:20 PM EDTMfabiana Menon MD - 10/12/2024 2:30 PM EDTTelephone Encounter - May Mor - 10/10/2024 1:57 PM EDTBELEM Motley - 08/31/2024 1:41 PM EDT Note Date & Type Note Facility 10-24-2024 History of Presen t illness Narrative Subjective Patient ID: Jolene Morales is a [...] and sinus tachycardia, patient reports that she has had 1 episode since her last appointment. Her midodrine was increased to 5 mg B.I.d. and she continues to take Florinef 0.1 mg b.I.d. she is also on metoprolol 1.5 mg b.I.d. she is tolerating the medications well with no side effects. Patient states that she is feeling good because he is no longer getting frequent episodes of orthostatic hypotension and syncope. To follow-up with Cardiology. She has insulin resistance, morbid obesity and prediabetes. She has been trying to lose weight, she has made lifestyle changes by cutting down on the amount of food she eats, she is exercising by walking with her children. However despite all her effort she does not seem to be losing weight. She is concerned because of increase risk of heart disease [...] (BMI) of 40.0 to 44.9 in adult ([facility]) Prediabetes Anxiety Past Medical History Past Medical [...] min Stress: No Stress Concern Present (08/29/2024) [employer] - Occupational Stress Questionnaire Feeling of Stress : Not at all Social Connections: Moderately Isolated (08/29/2024) Social Connection and Isolation Panel [NHANES] Frequency of Communication with Friends and Family: More than three times a week Frequency of Social Gatherings with Friends and Family: More than three times a week Attends Jainism Services: Never Active Member of Clubs or [...] problem, hearing loss, postnasal drip, rhinorrhea, sinus pain and trouble swallowing. Eyes: Negative for photophobia, discharge [...] L (13-17 inches)) Pulse 92 Temp 36.5 C (97.7 F) (Temporal) Ht 162.6 cm (5' 4.02 ) Wt 112.2 kg (247 lb 6.4 oz) LMP 10/05/2024 SpO2 98% BMI 42.44 kg/m Physical Exam Physical Exam Vitals and nursing [...] and the following intervention(s) were applied: encouragement to exercise and prescribed diet education. Obesity Plan 1. [...] Munoz 10/24/24 1600 documented in this encounter [facility] 10-12-2024 History of Presen t illness Narrative Jolene Morales Date of visit: 10/12/2024 Date of : 2000 Age: 23 y.o. [...] (BMI) of 40.0 to 44.9 in adult ([facility]) Prediabetes Anxiety Allergies Allergen Reactions Morphine GI Disturbance Current Outpatient Medications Medication Sig Dispense Refill ascorbic acid (VITAMIN C) 500 mg tablet Take 1 tablet (500 mg total) by mouth in the morning. 90 tablet 1 ferrous sulfate 325 (65 FE) MG tablet Take 1 tablet (325 mg total) by mouth in the morning. 30 tablet 3 fludrocortisone (FLORINEF) 0.1 mg tablet Take 1 tablet (0.1 mg total) by mouth in the morning and 1 tablet (0.1 mg total) before bedtime. Do all this for 90 days. 60 tablet 2 metoprolol tartrate (LOPRESSOR) 25 mg tablet Take 0.5 tablets (12.5 mg total) by mouth in the morning and 0.5 tablets (12.5 mg total) before bedtime. Do all this for 90 days. 30 tablet 2 midodrine (PROAMATINE) 5 mg tablet Take 1 tablet (5 mg total) by mouth 3 (three) times a day. (Patient taking differently: Take 1 tablet (5 mg total) by mouth 2 (two) times a day.) 90 tablet 0 ivabradine (CORLANOR) 5 mg tablet tablet Take 1 tablet (5 mg total) by mouth in the morning and 1 tablet (5 mg total) before bedtime. (Patient not taking: Reported on 10/12/2024) 90 tablet 3 metFORMIN XR (GLUCOPHAGE XR) 500 mg 24 hr tablet Take 1 tablet (500 mg total) by mouth daily with breakfast. (Patient not taking: Reported on 10/12/2024) 30 tablet 11 No current facility-administered medications for this visit. Chief Complaint Patient presents with Follow-up 3MO F/U-L/S TMP-HOSP STAY 08/29-08/31 PMH-LABS 08/31 PMH-CHEST XRAY 08/29 PMH-VAS CAROTID DUPLEX HALEY & ECHO 08/30 PMH-SCHD APPT W/PT History of Present Illness 23 year old female with a history of autonomic dysfunction here in follow-up. She was admitted last month for another vasovagal syncope she was started on Florinef 0.1 mg b.i.d. in addition of her midodrine and metoprolol She tells me that she feels the best she has ever felt in years she only had 2 syncopal episodes since then, which is a huge doing for her Her blood pressure is still soft today Past Medical History: Diagnosis Date Asthma Depression [...] min Stress: No Stress Concern Present (08/29/2024) [employer] - Occupational Stress Questionnaire Feeling of Stress : Not at all Social Connections: Moderately Isolated (08/29/2024) Social Connection and Isolation Panel [NHANES] Frequency of Communication with Friends and Family: More than three times a week Frequency of Social Gatherings with Friends and Family: More than three times a week Attends Jainism Services: Never Active Member of Clubs or Organizations: No Attends Club or Organization Meetings: Never Marital Status: Interpersonal Safety: Not At Risk (08/29/2024) Humiliation, Afraid, Rape, and Kick questionnaire Fear of Current or Ex-Partner: No Emotionally Abused: No Physically Abused: No Sexually Abused: No Housing Instability: Low Risk (09/20/2024) Housing Instability Housing Instability: No Review of Systems Review of Systems Constitutional: Negative. HENT: Negative. Eyes: Negative. Cardiovascular: Negative. Respiratory: Negative. Endocrine: Negative. Hematologic/Lymphatic: Negative. Skin: Negative. Musculoskeletal: Negative. Gastrointestinal: Negative. Genitourinary: Negative. Neurological: Negative. Psychiatric/Behavioral: Positive for depression. The patient is nervous/anxious. Allergic/Immunologic: Negative. Vascular: Negative. CARDIOVASCULAR: Please review [...] mood, memory and judgement. VITAL SIGNS: BP 94/66 Pulse 89 Ht 162.6 cm (5' 4.02 ) Wt 111.7 kg (246 lb 3.2 oz) SpO2 99% BMI 42.23 kg/m No orders of the defined types were placed in this encounter. There are no discontinued medications. IMPRESSIONS/PLAN There are no diagnoses linked to this encounter. 1- Autonomic dysfunction with inappropriate sinus tachycardia, POTS, vasovagal syncope She is now doing much better on midodrine 5 mg p.o. b.i.d. and Florinef 0.1 b.i.d. along with metoprolol 12.5 b.i.d.. I did recommend increasing midodrine to 5 mg TID given her soft pressures and recurrence of her syncopal episode however she tells me that 2 episodes in 6 weeks is a huge went and she will stick with the current doses unless her symptoms worsen which is reasonable TODAYS ORDERS No orders of the defined types were placed in this encounter. FOLLOW UP No follow-ups on file. PCP: Cristiane Andino APRN-REMELT OPERATOR Referring Physician: No referring provider defined for this encounter. documented in this encounter [facility] 10-10-2024 Telephone encounter Note Patient stopped taking Metformin 500mg. It was giving her diarrhea. [facility] History of Presen t illness Narrative Subjective Patient ID: Jolene Morales is a 23 y.o. female. Chief Complaint Chief Complaint Patient presents with New Patient ER On August 29 Admitted Follow-up Was seen at [facility] HPI Jolene Morales Is a 23-year-old patient who is here to establish care with us today. Patient has postural orthostatic tachycardia syndrome, syncope, orthostatic hypotension, prediabetes and class 3 obesity. Patient reports that she has had pots many years. She has been following up with hand or machine paster and has been on midodrine. She noticed that when she was the severity of the pots got increased. She got the symptoms more often as a result of this spots, she has lost so many jobs it is either she pass out during her work time or she missed several days of work and they let her to let her go. During her and after she delivered her baby she stopped some of her medications. She only breastfeed her baby for 3 months because she had to restart her medications. However because she lost her job and did not have anymore insurance she stopped taking some of the medications and the symptoms resurfaced. She was recently admitted on 29 August 2024 due to syncope as a result of pots. During that admission to a patient was told that she has anemia as well as orthostatic hypotension. A review of her blood work showed iron of 45 and iron saturation of 11. A review of the chart also showed that in 2019 she had an iron saturation of 9. Her ferritin was within normal range and her iron binding and transferrin was also within normal range. Her magnesium has remained within normal range, thyroid profile was within normal range. It was also discovered that patient has prediabetes with a recent A1c of 5.8. In regards to menstrual period, patient reports that she has never had a regular menses. Prior to her being , she did not have any period 3 years, she also reports that she had an IUD in place. After having her baby who is presently 1-1/2-year-old, she has had 2-3 menstrual period since having her baby. She does not have a heavy menstrual flow and the menses runs for about 3-5 days. Her last menstrual period was either the beginning of this month or in July. She presently has an IUD. Medication she is presently taking for pots includes midodrine, which was increased 5 mg b.I.d. during admission, Florinef 0.1 mg b.I.d. was added and metoprolol 12.5 mg b.I.d. was also added. Patient states that she ran out of her medication about a week ago last Thursday. And she reports that she has been experiencing difference in her symptoms since she ran out of metoprolol. Her heart rate has been up above 100 even while at rest and she can feel it too. A new medication she was started on ivabradine, she was not able to take this medication because her insurance did not cover the cost of the medication. She reports that her symptoms has improved since after hospitalization when changes was made to her medications. In regards to obesity patient states that she has made a lot of lifestyle changes. She states that she is very active and always keeping herself busy, she has cut down on pop and probably drinks it once a week or once in 2 weeks. She also watches what she eats and has cut down the amount of food that she eats. She is interested in weight loss, she states that despite all her efforts at losing weight, she has not been losing weight. She has history of PCOS, but her insulin level has never been checked and so she does not know whether she has hyper insulin. Active Problems Patient Active Problem List Diagnosis [...] (BMI) of 40.0 to 44.9 in adult ([facility]) Prediabetes Anxiety Past Medical History Past Medical [...] very hard Food Insecurity: No Food Insecurity (09/22/2024) Hunger Screening Food Insecurity - Worry: Never True Food Insecurity - Inability: Never True Transportation Needs: No Transportation Needs (09/20/2024) PRAPARE - Transportation Lack of Transportation (Medical): No Lack of Transportation (Non-Medical): No Physical Activity: Insufficiently Active (08/29/2024) Exercise Vital Sign Days of Exercise per Week: 7 days Minutes of Exercise per Session: 10 min Stress: No Stress Concern Present (08/29/2024) [employer] - Occupational Stress Questionnaire Feeling of Stress : Not at all Social Connections: Moderately Isolated (08/29/2024) Social Connection and Isolation Panel [NHANES] Frequency of Communication with Friends and Family: More than three times a week Frequency of Social Gatherings with Friends and Family: More than three times a week Attends Jainism Services: Never Active Member of Clubs or Organizations: No Attends Club or Organization Meetings: Never Marital Status: Interpersonal Safety: Not At Risk (08/29/2024) Humiliation, Afraid, Rape, and Kick questionnaire Fear of Current or Ex-Partner: No Emotionally Abused: No Physically Abused: No Sexually Abused: No Housing Instability: Low Risk (09/20/2024) Housing Instability Housing Instability: No Allergies Allergies Allergen Reactions Morphine GI Disturbance Current Medications Current Outpatient Medications Medication Sig Dispense Refill ascorbic acid (VITAMIN C) 500 mg tablet Take 1 tablet (500 mg total) by mouth in the morning. 90 tablet 1 ferrous sulfate 325 (65 FE) MG tablet Take 1 tablet (325 mg total) by mouth in the morning. 30 tablet 3 fludrocortisone (FLORINEF) 0.1 mg tablet Take 1 tablet (0.1 mg total) by mouth in the morning and 1 tablet (0.1 mg total) before bedtime. Do all this for 90 days. 60 tablet 2 ivabradine (CORLANOR) 5 mg tablet tablet Take 1 tablet (5 mg total) by mouth in the morning and 1 tablet (5 mg total) before bedtime. (Patient not taking: Reported on 09/22/2024) 90 tablet 3 metoprolol tartrate (LOPRESSOR) 25 mg tablet Take 0.5 tablets (12.5 mg total) by mouth in the morning and 0.5 tablets (12.5 mg total) before bedtime. Do all this for 90 days. 30 tablet 2 midodrine (PROAMATINE) 5 mg tablet Take 1 tablet (5 mg total) by mouth 3 (three) times a day. 90 tablet 0 No current facility-administered medications for this visit. Review of Systems Review of Systems Constitutional: Positive for activity change. Negative for appetite change, fatigue and unexpected weight change. HENT: Negative for congestion, dental problem, hearing loss, postnasal drip, rhinorrhea, sinus pain and trouble swallowing. Eyes: Negative for photophobia, discharge and visual disturbance. Respiratory: Negative for cough, choking, chest tightness, shortness of breath and wheezing. Cardiovascular: Positive for palpitations. Negative for chest pain and leg swelling. Gastrointestinal: Negative for abdominal distention, abdominal pain, constipation, nausea and vomiting. Endocrine: Negative for cold intolerance, heat intolerance, polydipsia, polyphagia and polyuria. Genitourinary: Negative for difficulty urinating and dysuria. Musculoskeletal: Negative for back pain, myalgias, neck pain and neck stiffness. Skin: Negative. Negative for color change. Allergic/Immunologic: Negative for environmental allergies and food allergies. Neurological: Positive for light-headedness (at times but the symptoms has not beesn severe since she came back from the hospital.). Negative for dizziness, seizures, speech difficulty, weakness and headaches. Hematological: Negative. Psychiatric/Behavioral: Negative for agitation, behavioral problems, dysphoric mood, sleep disturbance and suicidal ideas. The patient is not nervous/anxious. Objective Vitals BP 152/71 (BP Site: Left Arm, BP Postition: Sitting, BP CUFF SIZE: L (13-17 inches)) Pulse (!) 133 Temp 36.7 C (98 F) (Temporal) Ht 162.6 cm (5' 4.02 ) Wt 113.2 kg (249 lb 9.6 oz) SpO2 97% BMI 42.82 kg/m Physical Exam Physical Exam Vitals and nursing note reviewed. Constitutional: Appearance: Normal appearance. She is obese. HENT: Head: Normocephalic. Right Ear: Hearing, tympanic [...] memory normal. Judgment: Judgment normal. Assessment/Plan 1. POTS (postural orthostatic tachycardia syndrome) - fludrocortisone (FLORINEF) 0.1 mg tablet; Take 1 tablet (0.1 mg total) by mouth in the morning and 1 tablet (0.1 mg total) before bedtime. Do all this for 90 days. Dispense: 60 tablet; Refill: 2 - metoprolol tartrate (LOPRESSOR) 25 mg tablet; Take 0.5 tablets (12.5 mg total) by mouth in the morning and 0.5 tablets (12.5 mg total) before bedtime. Do all this for 90 days. Dispense: 30 tablet; Refill: 2 - midodrine (PROAMATINE) 5 mg tablet; Take 1 tablet (5 mg total) by mouth 3 (three) times a day. Dispense: 90 tablet; Refill: 0 2. Syncope, unspecified syncope type - fludrocortisone (FLORINEF) 0.1 mg tablet; Take 1 tablet (0.1 mg total) by mouth in the morning and 1 tablet (0.1 mg total) before bedtime. Do all this for 90 days. Dispense: 60 tablet; Refill: 2 - midodrine (PROAMATINE) 5 mg tablet; Take 1 tablet (5 mg total) by mouth 3 (three) times a day. Dispense: 90 tablet; Refill: 0 3. Prediabetes - Insulin; Future 4. Iron deficiency anemia, unspecified iron deficiency anemia type - ferrous sulfate 325 (65 FE) MG tablet; Take 1 tablet (325 mg total) by mouth in the morning. Dispense: 30 tablet; Refill: 3 - ascorbic acid (VITAMIN C) 500 mg tablet; Take 1 tablet (500 mg total) by mouth in the morning. Dispense: 90 tablet; Refill: 1 5. PCOS (polycystic ovarian syndrome) - Insulin; Future 6. Encounter for lipid screening for cardiovascular disease - Lipid panel; Future Orders Placed This Encounter Procedures Insulin Lipid panel Patient was seen today to establish care with us. She came with her baby who is 1-1/2-year-old. Plan Will get insulin level as well as lipids checked Continue Florinef 0.1 mg 2 times daily Continue midodrine 5 mg 3 times daily Continue metoprolol 12.5 mg 2 times daily Will add iron tablet 325 mg once daily Will add vitamin-C 500 mg once daily to help in the absorption of the iron. I will wait for insulin level to discuss weight loss options. Due to tachycardia, patient will not be a candidate for Adipex. Side effects of prescribed medications reviewed with the patient. All the pertinent questions were answered. Patient noted to have elevated BMI and the following intervention(s) were applied: encouragement to exercise and prescribed diet education. Obesity Plan 1. Discussed proper diet (low fat, low sodium, high fiber) with patient. 2. Instructed Patient to exercise at least 150 minutes per week ( 30 minutes per session) or greater than 30 minutes if possible 3. Instructed patient on calorie deficit diet of less than 1500 calories per day. Return in about 1 month (around 10/23/2024) for obesity, POTS, syncope. Prediabetes, anemia.. This note is created with the assistance of a speech recognition program. While intending to generate a document that actually reflects the content of the visit, the document can still have some errors including those of syntax and sound a like substitutions which may escape proof reading. It such instances, actual meaning can be extrapolated by contextual diversion. LORRAINE Munoz 09/22/24 1620 documented in this encounter [facility] [employer] 08-31-2024 Consult note Formatting of th is note is different from the original. DIABETES SELF-MANAGEMENT THERAPY (DSMT) Date: 08/31/24 Patient Jolene Morales Age () 23 y.o. (2000) Sex female Accompanied by mother Reason for Visit: Pre Diabetes Assessment: Lab Results: A1c Lab Results Component Value Date HGBA1C 5.8 (H) 08/30/2024 No results found for: [id number] Vitals: Wt Readings from Last 1 Encounters: 08/31/24 114.9 kg (253 lb 4.8 oz) Ht Readings from Last 1 Encounters: 08/29/24 162.6 cm (5' 4 ) Psychosocial / Economic Comments: Pt reports she does not consume an am breakfast, but eats 3 other meals during the day. She does drink regular pop and water, some fast foods at times. Diagnosis: Intervention: Patient was instructed on: Diabetes Disease Process Healthy Choices: Plate Method and Low Saturated Fats Menu planning, and exercise plan Monitoring & Evaluation: Department phone number provided for questions after session. BELEM Motley, [employer] [facility] [employer] Work Phone: 08-31-2024 Consult note Formatting of th is note is different from the original. DIABETES SELF-MANAGEMENT THERAPY (DSMT) Date: 08/31/24 Patient Jolene Morales Age () 23 y.o. (2000) Sex female Accompanied by mother Reason for Visit: Pre Diabetes Assessment: Lab Results: A1c Lab Results Component Value Date HGBA1C 5.8 (H) 08/30/2024 No results found for: [id number] Vitals: Wt Readings from Last 1 Encounters: 08/31/24 114.9 kg (253 lb 4.8 oz) Ht Readings from Last 1 Encounters: 08/29/24 162.6 cm (5' 4 ) Psychosocial / Economic Comments: Pt reports she does not consume an am breakfast, but eats 3 other meals during the day. She does drink regular pop and water, some fast foods at times. Diagnosis: Intervention: Patient was instructed on: Diabetes Disease Process Healthy Choices: Plate Method and Low Saturated Fats Menu planning, and exercise plan Monitoring & Evaluation: Department phone number provided for questions after session. BELEM Motley, [employer] documented in this encounter [facility] 08-31-2024 Progress note Formatting of t his note is different from the original. Images from the original note were not included. Initial Assessment [employer] Core Transformer Assembler spoke with patient remote, introduced self, and explained role. Patient educated on safe discharge plan, importance of having a PCP. She agreed and assisted pt complete online application for [facility]. Questions answered and she is ready to DC today. She has no other questions or concerns about her DC plan to home today. RN updated. Initial Assessment Flowsheet Row Most Recent Value Patient Information Initial Pre-Hospitalization Assessment Completed? Completed In-Progress Reason: Attempted assessment: patient off unit/unavailable [Unable to reach pt on room phone. Telephone message left to return call.] Primary Caregiver Self Support System Spouse/Significant Other, Family Members Discharge Planning Living Arrangements Spouse/significant other, Minor Child(suzette) [Lives with her and 1 year old child] Assistance Needed none Type of Residence Private residence Home Care Services No Community Agencies Currently Utilized -- [[employer] for her child] Community Referrals / Resources Provided Other (type comment) Stressors Type of stressor Health issues, Financial Health Explain issues Has no insurance, assisted by Elisa palacios to apply for Medicaid. Also no PCP, assisted pt to become new pt with [facility], she registered online with development writer on phone assisting her. Income Information Income Information Employed IP Hunger/Food Insecurity Screening Within the past 12 months we worried whether our food would run out before we got money to buy more. Never True Within the past 12 months the food we bought just didn't last and we didn't have money to get more. Never True Hunger Screening Complete? Yes Pt. Eligible for Food / Voucher No Caregiver/Family Member Caregiver/Support System Limitations Caregiver/Support Systems Limitations (Check All That Apply) No Caregiver Needed Patient/Caregiver Goals Patient/Caregiver Goals Home No Needs [Establish new PCP] Home No Needs Caregiver/Family Community Provider Referral Services Requested Patient expects to be discharged to: DC to home today. Does the patient wish to have family/friend/caregiver involved in their discharge planning? No, the patient does not wish to have family/friend/caregiver involved in their discharge planning Discharge Disposition Home with self care Does the patient need discharge transportation arranged? No DC Planning Complete Discharge Milestones Yes Additional Comments (If Applicable) [facility] 08-31-2024 Miscellaneous Notes Images from the original note were not included. Initial Assessment [employer] Core Transformer Assembler spoke with patient remote, introduced self, and explained role. Patient educated on safe discharge plan, importance of having a PCP. She agreed and assisted pt complete online application for [facility]. Questions answered and she is ready to DC today. She has no other questions or concerns about her DC plan to home today. RN updated. Initial Assessment Flowsheet Row Most Recent Value Patient Information Initial Pre-Hospitalization Assessment Completed? Completed In-Progress Reason: Attempted assessment: patient off unit/unavailable [Unable to reach pt on room phone. Telephone message left to return call.] Primary Caregiver Self Support System Spouse/Significant Other, Family Members Discharge Planning Living Arrangements Spouse/significant other, Minor Child(suzette) [Lives with her and 1 year old child] Assistance Needed none Type of Residence Private residence Home Care Services No Community Agencies Currently Utilized -- [[facility]ic for her child] Community Referrals / Resources Provided Other (type comment) Stressors Type of stressor Health issues, Financial Health Explain issues Has no insurance, assisted by Elisa palacios to apply for Medicaid. Also no PCP, assisted pt to become new pt with [facility], she registered online with development writer on phone assisting her. Income Information Income Information Employed IP Hunger/Food Insecurity Screening Within the past 12 months we worried whether our food would run out before we got money to buy more. Never True Within the past 12 months the food we bought just didn't last and we didn't have money to get more. Never True Hunger Screening Complete? Yes Pt. Eligible for Food / Voucher No Caregiver/Family Member Caregiver/Support System Limitations Caregiver/Support Systems Limitations (Check All That Apply) No Caregiver Needed Patient/Caregiver Goals Patient/Caregiver Goals Home No Needs [Establish new PCP] Home No Needs Caregiver/Family Community Provider Referral Services Requested Patient expects to be discharged to: DC to home today. Does the patient wish to have family/friend/caregiver involved in their discharge planning? No, the patient does not wish to have family/friend/caregiver involved in their discharge planning Discharge Disposition Home with self care Does the patient need discharge transportation arranged? No DC Planning Complete Discharge Milestones Yes Additional Comments (If Applicable) Problem: Knowledge Deficit Goal: Patient/patient airport representative demonstrates understanding of disease process, treatment plan, medications, and discharge instructions Description: INTERVENTIONS 1. Complete learning assessment and assess knowledge base 2. Provide teaching at level of understanding 3. Provide teaching via preferred learning method(s) Outcome: Progressing Note: Evaluation of progress towards goal: POC discussed with patient. Questions answered PRN. Problem: Discharge Planning Goal: Discharge to post-acute [...] Progressing Note: Evaluation of progress towards goal: Continue to assess for when appropriate. Problem: Pain Goal: Patient goal is pain score less than 4, able to rest, and participant in treatment plan as appropriate Description: INTERVENTIONS: 1. Encourage patient or legal airport representative to report early pain and ask [...] per policy 9. Teach patient or legal airport representative interventions for comforting Outcome: Adequate for Discharge Note: Evaluation of progress towards goal: No s/sx or c/o pain Problem: Safety Goal: Patient will be injury free during hospitalization Description: INTERVENTIONS: 1. Assess patient's risk for falls and implement fall prevention plan of care per policy 2. Provide and maintain a safe environment 3. Proper use of double Identifiers 4. Medication administration using the 5 rights 5. Hand hygiene 6. Specimens are labeled at the bedside 7. Instruct patient/ patient airport representative about use of safety devices 8. Include patient/ patient airport representative in decisions related to safety Outcome: Adequate for Discharge Note: Evaluation of progress towards goal: Pt alert and oriented to own abilities; has supportive family members that help with known pmhx dx Problem: Infection Goal: Absence of infection during hospitalization Description: INTERVENTIONS 1. Assess and monitor for signs and symptoms of infection. 2. Monitor lab/diagnostic results. 3. Monitor all insertion sites i.e., indwelling lines, tubes and drains. 4. Monitor endotracheal (as able) and nasal secretions for changes in amount and color. 5. Administer medications as ordered. 6. Instruct and encourage patient and family to use good hand hygiene technique. 7. Identify and instruct patient/patient airport representative in use of appropriate isolation precautions for identified infection/symptoms. 8. Provide and discuss with patient/patient airport representative on educational MDRO sheet. 9. Encourage and monitor nutritional status daily and consult residential treatment staff if indicated. 10. Implement neutropenic guidelines as needed. Outcome: Progressing Note: Evaluation of progress towards goal: No s/sx of infection DISCHARGE PLANNING NOTE 08/30/24 1543 Patient Information Initial Pre-Hospitalization Assessment Completed? In-Progress In-Progress Reason: Attempted assessment: patient off unit/unavailable (Unable to reach pt on room phone. Telephone message left to return call.) Physical Therapy PT Type of Visit: (P) Discharge from Therapy (Patient performs bed mobility and transfer to transfer chair without AD, SUP. Reports she feels her fatigue/dizziness is from her POTS and too much exertion from helping move a trailer. Feels she will be able to negotiate her home [place]up at [place].) PT to sign off at this time. Thank you for this referral. Problem: Knowledge Deficit Goal: Patient/patient airport representative demonstrates understanding of disease process, treatment plan, medications, and discharge instructions Description: INTERVENTIONS 1. Complete learning assessment and assess knowledge base 2. Provide teaching at level of understanding 3. Provide teaching via preferred learning method(s) 08/30/2024957 by GIOVANNY Pompa Outcome: Progressing Note: Evaluation of progress towards goal: POC discussed with patient. Questions answered PRN. 08/30/2024854 by GIOVANNY Pompa Outcome: Progressing Note: Evaluation of progress towards goal: POC discussed with patient. Questions answered PRN. Problem: Discharge Planning Goal: Discharge to post-acute [...] Arrange for needed discharge transportation as appropriate 08/30/2024957 by GIOVANNY Pompa Outcome: Progressing Note: Evaluation of progress towards goal: Continue to assess for when appropriate. 08/30/2024854 by GIOVANNY Pompa Outcome: Progressing Note: Evaluation of progress towards goal: Continue to assess for when appropriate.Continue to assess for when appropriate. Problem: Knowledge Deficit Goal: Patient/patient airport representative demonstrates understanding of disease process, treatment plan, medications, and discharge instructions Description: INTERVENTIONS 1. Complete learning assessment and assess knowledge base 2. Provide teaching at level of understanding 3. Provide teaching via preferred learning method(s) Outcome: Progressing Note: Evaluation of progress towards goal: POC discussed with patient. Questions answered PRN. Problem: Discharge Planning Goal: Discharge to post-acute [...] Progressing Note: Evaluation of progress towards goal: Continue to assess for when appropriate.Continue to assess for when appropriate. Problem: Safety Goal: Patient will be injury free during hospitalization Description: INTERVENTIONS: 1. Assess patient's risk for falls and implement fall prevention plan of care per policy 2. Provide and maintain a safe environment 3. Proper use of double Identifiers 4. Medication administration using the 5 rights 5. Hand hygiene 6. Specimens are labeled at the bedside 7. Instruct patient/ patient airport representative about use of safety devices 8. Include patient/ patient airport representative in decisions related to safety Outcome: Progressing Note: Evaluation of progress towards goal: Pt remains free from falls or accidental injury during stay. Fall prevention measures in place. Hourly rounding per RN and NA maintained. Problem: Knowledge Deficit Goal: Patient/patient airport representative demonstrates understanding of disease process, treatment plan, medications, and discharge instructions Description: INTERVENTIONS 1. Complete learning assessment and assess knowledge base 2. Provide teaching at level of understanding 3. Provide teaching via preferred learning method(s) Outcome: Progressing Note: Evaluation of progress towards goal: POC discussed with patient. Questions answered PRN. documented in this encounter [facility] 08-31-2024 Hospital course Narrative Images from the original note were not included. [facility] INTERNAL MEDICINE [facility] [address] [id number] Hospital Medicine Discharge Summary Patient: Jolene Morales Date of : 2000 Room: [facility] [place][note 2] Encounter date: 08/31/24 DATE OF ADMISSION: 08/29/2024 DATE OF DISCHARGE:08/31/2024 DISCHARGE DIAGNOSES Principal Problem: POTS (postural orthostatic tachycardia syndrome) Active Problems: Syncope, unspecified syncope type Orthostatic hypotension Class 3 severe obesity due to excess calories with body mass index (BMI) of 40.0 to 44.9 in adult ([facility]) Prediabetes CONSULTANTS None PCP: NO PCP, NO PCP PROCEDURES None HOSPITAL COURSE SUMMARY Per HPI: Jolene Morales is a 23 y.o. female who presents with chief complaint of irregular heart beat with syncope. Pt has history of POTS. Pt states she currently takes blood pressure medication as hers usually runs low. Pt states she woke up this morning feeling like she got hit by a truck, then proceeded to go to work, where she passed out in her car. Pt states she lost consciousness 2 or 3 times, which is normal for her, and she states this episode is similar to her POTS flare ups. Pt states she called her hand or machine paster, which instructed her to just come get checked out here. Pt states she is currently experiencing some nausea, body aches, chest pain, fatigue, and a headache. Pt denied any sick contacts. Pt states she did do a lot of physical work yesterday, which may have caused this. No leukocytosis. Slight anemia noted at 11.6. Metabolic panel benign. Thyroid within normal limits. Patient was given fluid bolus and admitted for further evaluation of dizziness. Patient was still complaining of dizziness during conversation. Orthostatic blood pressures positive. Patient was intermittently hypotensive. And does take midodrine at home. While patient was here her midodrine was increased and she was started on Florinef. She did receive fluids and did help the orthostatic blood pressure issue. Patient was still becoming hypotensive which is the reason why the midodrine was increased. Florinef added for positional hypotension and tachycardia. Patient was also started on metoprolol 12.5 to help with rate controlled. Orthostatic blood pressure negative on day of discharge. Still slightly tachycardia with position changes. Patient be discharged home today and follow up with Cardiology in 2 weeks. Clinical concern for sepsis, no-not clinically evident at this time. 08/31/24, Hospital Day: 3 Interval History: Status: improved. No overnight events or new complaints. Blood pressure and orthostatic symptoms improved Review of Systems Constitutional: Negative for activity change, appetite change, fatigue and unexpected weight change. HENT: Negative for trouble swallowing. Respiratory: Negative for cough, sputum production, shortness of breath and wheezing. Cardiovascular: Negative for chest pain, palpitations and leg swelling. Gastrointestinal: Negative for abdominal pain, blood in stool, melena, constipation, diarrhea, nausea and vomiting. Genitourinary: Negative for difficulty urinating. Skin: Negative for color change and wound. Neurological: Negative for dizziness, seizures, speech difficulty and headaches. Psychiatric/Behavioral: Negative for sleep disturbance. Physical Exam BP 112/70 Pulse 119 Temp 36.8 C (98.2 F) (Oral) Resp 17 Ht 162.6 cm (5' 4 ) Wt 114.9 kg (253 lb 4.8 oz) SpO2 99% BMI 43.48 kg/m Intake/Output Summary (Last 24 hours) at 08/31/2024 1214 Last data filed at 08/30/2024 1906 Gross per 24 hour Intake 3011.87 ml Output -- Net 3011.87 ml Constitutional: General: No acute distress. Cardiovascular: Tachycardia with position changes Rate and Rhythm: Normal rate and regular rhythm. Heart sounds: Normal heart sounds, S1 normal and S2 normal. Pulmonary: Effort: Pulmonary effort is normal. Breath sounds: Normal breath sounds. Musculoskeletal: Right lower leg: No edema. Left lower leg: No edema. Skin: General: Skin is warm and dry. Coloration: Skin is not pale. Neurological: General: No focal deficit present. Psychiatric: Mood and Affect: Mood normal. Behavior: Behavior normal. Labs Recent Results (from the past 48 hours) Troponin I, High Sensitivity 1 Hour Collection Time: 08/29/24 12:27 PM Result Value Ref Range TROPONIN I, HIGH SENSITIVITY <2 <16 ng/L Comprehensive metabolic panel Collection Time: 08/30/24 5:41 AM Result Value Ref Range SODIUM 139 134 - 146 mmol/L POTASSIUM 3.8 3.5 - 5.0 mmol/L CHLORIDE 107 98 - 109 mmol/L CARBON DIOXIDE 25 22 - 32 mmol/L ANION GAP 7 5 - 15 mmol/L BLOOD UREA NITROGEN 13 5 - 23 mg/dL CREATININE 0.63 0.40 - 1.00 mg/dL GLUCOSE 116 (H) 65 - 99 mg/dL CALCIUM 8.6 8.5 - 10.5 mg/dL TOTAL PROTEIN 6.4 6.0 - 8.0 g/dL ALBUMIN 3.4 3.2 - 5.3 g/dL ALKALINE PHOSPHATASE 82 39 - 130 U/L AST 13 <=41 U/L ALT 15 <=31 U/L BILIRUBIN,TOTAL 0.4 0.3 - 1.2 mg/dL EGFR Non-Race Dependent >90 >=60 ml/min/1.73sq.m Magnesium Collection Time: 08/30/24 5:41 AM Result Value Ref Range MAGNESIUM 2.0 1.8 - 2.6 mg/dL Extra Tubes Collection Time: 08/30/24 5:41 AM Narrative The following orders were created for panel order Extra Tubes. Procedure Abnormality Status --------- ------ Light Blue Top[[id number]] Final result SST TOP[[id number]] Final result Please view results for these tests on the individual orders. Light Blue Top Collection Time: 08/30/24 5:41 AM Result Value Ref Range Extra Tube Auto Resulted SST TOP Collection Time: 08/30/24 5:41 AM Result Value Ref Range Extra Tube Auto Resulted Iron and TIBC Collection Time: 08/30/24 5:41 AM Result Value Ref Range IRON 45 (L) 50 - 170 ug/dL TRANSFERRIN 290 168 - 336 mg/dL IRON BINDING 406 250 - 425 ug/dL IRON SATURATION 11 (L) 15 - 50 % SATURATION Ferritin Collection Time: 08/30/24 5:41 AM Result Value Ref Range FERRITIN 12 11 - 307 ng/mL CBC auto differential Collection Time: 08/30/24 5:42 AM Result Value Ref Range WBC 7.1 4 - 11 x10E9/L RBC Count 4.05 3.8 - 5.2 X10E12/L Hemoglobin 10.6 (L) 11.7 - 15.5 g/dL Hematocrit 31.6 (L) 35 - 47 % MCV 78 (L) 80 - 100 fL MCH 26.2 (L) 27 - 34 pg MCHC 33.6 32 - 36 g/dL RDW 15.2 (H) 11.5 - 15 % Platelet Count 239 150 - 450 X10E9/L MPV 9.8 7 - 12 fL Neutrophils % 57.1 % Lymphocytes % 32.2 % Monocytes % 7.3 % Eosinophils % 2.0 % Basophils % 1.4 % Neutrophils Absolute (A) 4.1 1.5 - 6.6 10*3/uL Lymphocytes Absolute 2.3 1.0 - 3.5 10*3/uL Monocytes Absolute 0.5 0.0 - 0.9 10*3/uL Eosinophils Absolute 0.1 0.0 - 0.4 10*3/uL Basophils Absolute 0.1 0.0 - 0.2 10*3/uL Differential Type AUTOMATED DIFFERENTIAL Hemoglobin A1c Collection Time: 08/30/24 5:42 AM Result Value Ref Range HEMOGLOBIN A1C 5.8 (H) 4.4 - 5.6 % EST. AVERAGE GLUCOSE 120 mg/dL , urine Collection Time: 08/30/24 11:57 AM Specimen: Urine, Clean Catch Midstream Result Value Ref Range URINE Negative Negative Resp Pathogens Panel/SARS CoV-2 Collection Time: 08/30/24 12:10 PM Result Value Ref Range SARS COV 2 BY PCR Not Detected Not Detected ADENOVIRUS Not Detected Not Detected CORONAVIRUS 229E Not Detected Not Detected CORONAVIRUS HKU1 Not Detected Not Detected CORONAVIRUS NL63 Not Detected Not Detected CORONAVIRUS OC43 Not Detected Not Detected HUMAN METAPNEUVIRUS Not Detected Not Detected RHINO/ENTEROVIRUS Not Detected Not Detected INFLUENZA A Not Detected Not Detected INFLUENZA B Not Detected Not Detected PARAINFLUENZA 1 Not Detected Not Detected PARAINFLUENZA 2 Not Detected Not Detected PARAINFLUENZA 3 Not Detected Not Detected PARAINFLUENZA 4 Not Detected Not Detected RESP SYNCYTIAL VIRUS Not Detected Not Detected BORD PARAPERTUSSIS Not Detected Not Detected BORDETELLA PERTUSSIS Not Detected Not Detected CHLAM.PNEUMONIAE Not Detected Not Detected MYCOPLASMA PNEUMONIAE Not Detected Not Detected Narrative The [employer] Respiratory Panel 2.1 (RP2.1) is a multiplexed [...] a patient with possible respiratory tract infection. Comprehensive metabolic panel Collection Time: 08/31/24 5:29 AM Result Value Ref Range SODIUM 139 134 - 146 mmol/L POTASSIUM 4.0 3.5 - 5.0 mmol/L CHLORIDE 109 98 - 109 mmol/L CARBON DIOXIDE 20 (L) 22 - 32 mmol/L ANION GAP 10 5 - 15 mmol/L BLOOD UREA NITROGEN 9 5 - 23 mg/dL CREATININE 0.55 0.40 - 1.00 mg/dL GLUCOSE 197 (H) 65 - 99 mg/dL CALCIUM 9.1 8.5 - 10.5 mg/dL TOTAL PROTEIN 7.1 6.0 - 8.0 g/dL ALBUMIN 3.7 3.2 - 5.3 g/dL ALKALINE PHOSPHATASE 87 39 - 130 U/L AST 17 <=41 U/L ALT 15 <=31 U/L BILIRUBIN,TOTAL 0.3 0.3 - 1.2 mg/dL EGFR Non-Race Dependent >90 >=60 ml/min/1.73sq.m Magnesium Collection Time: 08/31/24 5:29 AM Result Value Ref Range MAGNESIUM 2.0 1.8 - 2.6 mg/dL CBC auto differential Collection Time: 08/31/24 5:29 AM Result Value Ref Range WBC 13.8 (H) 4 - 11 x10E9/L RBC Count 4.45 3.8 - 5.2 X10E12/L Hemoglobin 11.5 (L) 11.7 - 15.5 g/dL Hematocrit 34.3 (L) 35 - 47 % MCV 77 (L) 80 - 100 fL MCH 25.8 (L) 27 - 34 pg MCHC 33.5 32 - 36 g/dL RDW 15.0 11.5 - 15 % Platelet Count 283 150 - 450 X10E9/L MPV 10.0 7 - 12 fL Neutrophils % 91.5 % Lymphocytes % 6.4 % Monocytes % 1.6 % Eosinophils % 0.0 % Basophils % 0.5 % Neutrophils Absolute (A) 12.6 (H) 1.5 - 6.6 10*3/uL Lymphocytes Absolute 0.9 (L) 1.0 - 3.5 10*3/uL Monocytes Absolute 0.2 0.0 - 0.9 10*3/uL Eosinophils Absolute 0.0 0.0 - 0.4 10*3/uL Basophils Absolute 0.1 0.0 - 0.2 10*3/uL Differential Type AUTOMATED DIFFERENTIAL Extra Tubes Collection Time: 08/31/24 5:29 AM Narrative The following orders were created for panel order Extra Tubes. Procedure Abnormality Status --------- ------ Light Blue Top[[id number]] Final result SST TOP[[id number]] Final result Please view results for these tests on the individual orders. Light Blue Top Collection Time: 08/31/24 5:29 AM Result Value Ref Range Extra Tube Auto Resulted SST TOP Collection Time: 08/31/24 5:29 AM Result Value Ref Range Extra Tube Auto Resulted Radiology Vas carotid duplex bilateral Result Date: 08/30/2024 Narrative: Right: No plaque or significant flow abnormality [...] internal carotid artery. Antegrade vertebral artery flow. Echo complete W/O contrast Result Date: 08/30/2024 Narrative: Left Ventricle: Left ventricle appears normal in size. Systolic function is normal with an ejection fraction of 60-65%. There is no diastolic dysfunction and normal left atrial pressure. Right Ventricle: Right ventricular size appears normal. Systolic function is normal. Pulmonic Valve: There is mild regurgitation. There is no evidence of pulmonic valve stenosis. CT brain without contrast Result Date: 08/30/2024 Narrative: CT BRAIN WO CONT INDICATION: Dizziness. TECHNIQUE: [...] Niko Dumont MD on 08/30/2024 12:44 PM X-ray chest 1 view Result Date: 08/29/2024 Narrative: Portable chest: HISTORY: Chest pain. Single view of the chest was obtained and compared to prior exam dated 212.5. Cardiac and mediastinal contours are stable. No focal infiltrate or effusion. No pneumothorax seen. IMPRESSION: No acute findings Finalized by Adam Sin MD on 08/29/2024 11:24 AM DISCHARGE ASSESSMENT & PLAN Florinef 0.1 mg b.i.d.. Increase midodrine to 5 mg b.i.d.. Add metoprolol 12.5 mg b.i.d.. DISCHARGE INSTRUCTION Disposition: Home Condition: Good Activity: activity as tolerated Diet: Adult diet Regular Texture; No Added Salt (3-4 gm Sodium); Low Fat/Low Cholesterol Adult diet Follow up: NO PCP, NO PCP within 7-14 days. Follow up with Cardiology in 2 weeks Labs/Imaging/Pathology: None Discharge Medications: Medication List START taking these medications Instructions Last Dose Given Next Dose Due fludrocortisone 0.1 mg tablet Commonly known as: FLORINEF Take 1 tablet (0.1 mg total) by mouth in the morning and 1 tablet (0.1 mg total) before bedtime. Do all this for 30 days. metoprolol tartrate 25 mg tablet Commonly known as: LOPRESSOR Take 0.5 tablets (12.5 mg total) by mouth in the morning and 0.5 tablets (12.5 mg total) before bedtime. Do all this for 30 days. CHANGE how you take these medications Instructions Last Dose Given Next Dose Due midodrine 5 mg tablet Commonly known as: PROAMATINE What changed: medication strength how much to take when to take this additional instructions Take 1 tablet (5 mg total) by mouth 3 (three) times a day. CONTINUE taking these medications Instructions Last Dose Given Next Dose Due benzonatate 100 mg capsule Commonly known as: TESSALON PERLES Take 1 capsule (100 mg total) by mouth every 8 (eight) hours. ivabradine 5 mg tablet tablet Commonly known as: CORLANOR Take 1 tablet (5 mg total) by mouth in the morning and 1 tablet (5 mg total) before bedtime. ondansetron ODT 4 mg disintegrating tablet Commonly known as: ZOFRAN ODT Dissolve 1 tablet (4 mg total) on tongue every 8 (eight) hours as needed for nausea. VITAMIN 27 mg iron- 0.8 mg tablet Generic drug: vit [id number] Take 1 tablet by mouth in the morning. Where to Get Your Medications These medications were sent to [facility]/pharmacy #[id number] - [place], [place] - [address] [address] [address] [facility] [address] fludrocortisone 0.1 mg tablet metoprolol tartrate 25 mg tablet midodrine 5 mg tablet >30 minutes were spent on discharging this patient. LORRAINE Whatley, 08/31/2024 12:14 PM [facility] Internal Medicine 7AM-7PM & 7PM-7AM: EpicChat or page through [employer]. This note is dictated with the use of M*Modal. Please note that this dictation was completed with computer voice recognition software. Quite often unanticipated grammatical, syntax, homophones, and other interpretive errors are inadvertently transcribed by the computer software. Please disregard these errors. Please excuse any errors that have escaped final proofreading. LORRAINE Whatley 08/31/24 1113 Physician Attestation I, Prema Reyes MD, personally performed a face to face diagnostic evaluation on this patient. I have reviewed the note authored by the advance practice provider including history, review of systems,physical examination,medical decision making and agree with the assessment and plan as written. I have seen and evaluated the patient, I have repeated the olson portions of the physical exam and concur with the MAICOL findings. I have reviewed all laboratory findings and imaging reports/films. I agree with the plan as noted. Patient with a known history of pus was admitted with orthostatic hypotension and tachycardia due to POTS. Patient was started on IV fluids midodrine 5 mg p.o. 3 times a day, Florinef and IV Decadron. Patient's event monitor 08/28/2023 shows sinus tachycardia. 2D echo 08/30/2024 showed an ejection fraction of 60-65%. Carotid Dopplers were unremarkable. Patient was started on metoprolol 12.5 mg twice daily .compression stockings lower extremities were prescribed the patient. Patient's symptoms improved during hospital stay patient is being discharged in stable condition. Follow up with Cardiology in 2 weeks [facility] Plan of care note Problem: Knowledge Deficit Goal: Patient/patient airport representative demonstrates understanding of disease process, treatment plan, medications, and discharge instructions Description: INTERVENTIONS 1. Complete learning assessment and assess knowledge base 2. Provide teaching at level of understanding 3. Provide teaching via preferred learning method(s) Outcome: Progressing Note: Evaluation of progress towards goal: POC discussed with patient. Questions answered PRN. Problem: Discharge Planning Goal: Discharge to post-acute [...] Progressing Note: Evaluation of progress towards goal: Continue to assess for when appropriate. [facility] Plan of care note Problem: Pain Goal: Patient goal is pain score less than 4, able to rest, and participant in treatment plan as appropriate Description: INTERVENTIONS: 1. Encourage patient or legal airport representative to report early pain and ask [...] per policy 9. Teach patient or legal airport representative interventions for comforting Outcome: Adequate for Discharge Note: Evaluation of progress towards goal: No s/sx or c/o pain Problem: Safety Goal: Patient will be injury free during hospitalization Description: INTERVENTIONS: 1. Assess patient's risk for falls and implement fall prevention plan of care per policy 2. Provide and maintain a safe environment 3. Proper use of double Identifiers 4. Medication administration using the 5 rights 5. Hand hygiene 6. Specimens are labeled at the bedside 7. Instruct patient/ patient airport representative about use of safety devices 8. Include patient/ patient airport representative in decisions related to safety Outcome: Adequate for Discharge Note: Evaluation of progress towards goal: Pt alert and oriented to own abilities; has supportive family members that help with known pmhx dx Problem: Infection Goal: Absence of infection during hospitalization Description: INTERVENTIONS 1. Assess and monitor for signs and symptoms of infection. 2. Monitor lab/diagnostic results. 3. Monitor all insertion sites i.e., indwelling lines, tubes and drains. 4. Monitor endotracheal (as able) and nasal secretions for changes in amount and color. 5. Administer medications as ordered. 6. Instruct and encourage patient and family to use good hand hygiene technique. 7. Identify and instruct patient/patient airport representative in use of appropriate isolation precautions for identified infection/symptoms. 8. Provide and discuss with patient/patient airport representative on educational MDRO sheet. 9. Encourage and monitor nutritional status daily and consult residential treatment staff if indicated. 10. Implement neutropenic guidelines as needed. Outcome: Progressing Note: Evaluation of progress towards goal: No s/sx of infection [facility]30[facility]24 Progress note Formatting of t his note is different from the original. DISCHARGE PLANNING NOTE 08/30/24 6865 Patient Information Initial Pre-Hospitalization Assessment Completed? In-Progress In-Progress Reason: Attempted assessment: patient off unit/unavailable (Unable to reach pt on room phone. Telephone message left to return call.) [facility] Progress note Formatting of t his note is different from the original. Physical Therapy PT Type of Visit: (P) Discharge from Therapy (Patient performs bed mobility and transfer to transfer chair without AD, SUP. Reports she feels her fatigue/dizziness is from her POTS and too much exertion from helping move a trailer. Feels she will be able to negotiate [place].) PT to sign off at this time. Thank you for this referral. [facility] Plan of care note Problem: Knowledge Deficit Goal: Patient/patient airport representative demonstrates understanding of disease process, treatment plan, medications, and discharge instructions Description: INTERVENTIONS 1. Complete learning assessment and assess knowledge base 2. Provide teaching at level of understanding 3. Provide teaching via preferred learning method(s) 08/30/2024 0958 by GIOVANNY Pompa Outcome: Progressing Note: Evaluation of progress towards goal: POC discussed with patient. Questions answered PRN. 08/30/2024 0855 by GIOVANNY Pompa Outcome: Progressing Note: Evaluation of progress towards goal: POC discussed with patient. Questions answered PRN. Problem: Discharge Planning Goal: Discharge to post-acute [...] Arrange for needed discharge transportation as appropriate 08/30/2024 0958 by GIOVANNY Pompa Outcome: Progressing Note: Evaluation of progress towards goal: Continue to assess for when appropriate. 08/30/2024 0855 by GIOVANNY Pompa Outcome: Progressing Note: Evaluation of progress towards goal: Continue to assess for when appropriate.Continue to assess for when appropriate. [facility] 08-30-2024 History and physical note Images from the original note were not included. [facility]IC[facility] [place] [id number] [facility] [id number] Hospital Medicine History & Physical Patient: Jolene Morales Date of : 2000 Room: [facility] PCP: NO PCP, NO PCP Admission date: 08/29/2024 10:20 AM Encounter date: 08/30/24 Hospital Day: 2 SUBJECTIVE Jolene Morales is a 23 y.o. female who presents with chief complaint of irregular heart beat with syncope. Pt has history of POTS. Pt states she currently takes blood pressure medication as hers usually runs low. Pt states she woke up this morning feeling like she got hit by a truck, then proceeded to go to work, where she passed out in her car. Pt states she lost consciousness 2 or 3 times, which is normal for her, and she states this episode is similar to her POTS flare ups. Pt states she called her hand or machine paster, which instructed her to just come get checked out here. Pt states she is currently experiencing some nausea, body aches, chest pain, fatigue, and a headache. Pt denied any sick contacts. Pt states she did do a lot of physical work yesterday, which may have caused this. No leukocytosis. Slight anemia noted at 11.6. Metabolic panel benign. Thyroid within normal limits. Patient was given fluid bolus and admitted for further evaluation of dizziness. Patient was still complaining of dizziness during conversation. Orthostatic blood pressures positive. Patient was intermittently hypotensive. And does take midodrine at home. Allergies: Patient has no known allergies. Prior to Admission medications Medication Sig Start Date End Date Taking? Authorizing Provider benzonatate (TESSALON PERLES) 100 mg capsule Take 1 capsule (100 mg total) by mouth every 8 (eight) hours. 02/17/24 Yes LORRAINE Torres ivabradine (CORLANOR) 5 mg tablet tablet Take 1 tablet (5 mg total) by mouth in the morning and 1 tablet (5 mg total) before bedtime. 12/29/23 Yes Beatriz Kebede MD midodrine (PROAMATINE) 2.5 mg tablet Take 1 tablet (2.5 mg total) by mouth 2 (two) times a day. TAKE 4-5 HOURS APART DURING UPRIGHT HOURS 07/15/24 Yes Liz Mckeon MD ondansetron ODT (ZOFRAN ODT) 4 mg disintegrating tablet Dissolve 1 tablet (4 mg total) on tongue every 8 (eight) hours as needed for nausea. 06/29/24 Yes AURELIA Rangel vit no.[id number]-[id number] acid ( VITAMIN) 27 mg iron- 800 mcg tablet Take 1 tablet by mouth in the morning. 06/29/24 Yes AURELIA Rangel Code Status: Full Code Past Medical History: Patient has a past medical history of Asthma, Depression, Inappropriate sinus tachycardia, Polycystic ovary syndrome, Polyhydramnios affecting in third trimester (03/31/2023), and POTS (postural orthostatic tachycardia syndrome). Past Surgical History: Patient has a past surgical history that includes Tonsillectomy. Family History: Patient's family history includes Asthma in her mother; Breast cancer in her maternal grandmother; Dementia in her maternal grandfather; Depression in her sister; Diabetes in her maternal grandfather, maternal grandmother, and maternal uncle; Heart disease in her maternal grandmother; Irritable bowel syndrome in her paternal grandmother; Mental illness in her father, maternal grandmother, and mother; No Known Problems in her brother; Other in her father. Social History: Patient reports that she has never smoked. She has never used smokeless tobacco. She reports current alcohol use. She reports that she does not use drugs. Review of Systems Review of Systems Constitutional: Negative for activity change, appetite change, chills, diaphoresis, fatigue and fever. HENT: Negative for tinnitus and trouble swallowing. Respiratory: Negative for cough, chest tightness, shortness of breath and wheezing. Cardiovascular: Positive for palpitations. Negative for chest pain and leg swelling. Gastrointestinal: Negative for abdominal pain, diarrhea, nausea and vomiting. Genitourinary: Negative for difficulty urinating. Musculoskeletal: Negative for gait problem. Skin: Negative for rash. Neurological: Positive for dizziness. Negative for syncope, speech difficulty, weakness, light-headedness, numbness and headaches. Psychiatric/Behavioral: Negative for sleep disturbance. OBJECTIVE BP 101/60 Pulse 114 Temp 36.7 C (98.1 F) (Oral) Resp 18 Ht 162.6 cm (5' 4 ) Wt 113.4 kg (250 lb) SpO2 100% BMI 42.91 kg/m Temp: [36.3 C (97.4 F)-36.8 C (98.2 F)] 36.7 C (98.1 F) Pulse: [65-114] 114 Resp: [17-24] 18 BP: (86-117)/(31-77) 101/60 SpO2: [94 %-100 %] 100 % O2 Device: None (Room air) O2 Flow Rate (L/min): [0 L/min] 0 L/min Intake/Output Summary (Last 24 hours) at 08/30/2024 1329 Last data filed at 08/29/2024 1417 Gross per 24 hour Intake 1000 ml Output -- Net 1000 ml Physical Exam Physical Exam Vitals and nursing note reviewed. Constitutional: General: She is not in acute distress. Appearance: She is obese. HENT: Head: Normocephalic and atraumatic. Right Ear: External ear normal. Left Ear: External ear normal. Nose: Nose normal. Mouth/Throat: Mouth: Mucous membranes are moist. Pharynx: Oropharynx is clear. Eyes: Conjunctiva/sclera: Conjunctivae normal. Pupils: Pupils are equal, round, and reactive to light. Neck: Vascular: No carotid bruit or JVD. Cardiovascular: Rate and Rhythm: Normal rate and regular rhythm. Pulses: Normal pulses. Pulmonary: Effort: Pulmonary effort is normal. Breath sounds: Normal breath sounds. Abdominal: General: Bowel sounds are normal. There is no distension. Palpations: Abdomen is soft. Tenderness: There is no abdominal tenderness. Musculoskeletal: Right lower leg: No edema. Left lower leg: No edema. Lymphadenopathy: Cervical: No cervical adenopathy. Skin: General: Skin is warm and dry. Capillary Refill: Capillary refill takes less than 2 seconds. Neurological: Mental Status: She is alert and oriented to person, place, and time. Cranial Nerves: No cranial nerve deficit. Sensory: No sensory deficit. Psychiatric: Mood and Affect: Mood normal. Behavior: Behavior normal. Thought Content: Thought content normal. Judgment: Judgment normal. Medications Scheduled: dexAMETHasone, 4 mg, intravenous, Q12H ALEXANDER enoxaparin (LOVENOX) injection, 40 mg, subcutaneous, Daily [START ON 08/31/2024] fludrocortisone, 0.1 mg, oral, Daily midodrine, 5 mg, oral, TID sodium chloride, 3 mL, intravenous, Q12H ALEXANDER Infusions: dextrose 5 % in water, 100 mL/hr sodium chloride 0.9 %, 20 mL/hr sodium chloride 0.9 %, 125 mL/hr, Last Rate: 125 mL/hr (08/29/24 1724) sodium chloride 0.9 %, 125 mL/hr, Last Rate: 125 mL/hr (08/30/24 1202) As Needed: acetaminophen calcium gluconate calcium gluconate calcium gluconate dextrose dextrose 5 % in water dextrose 50 % in water (D50W) glucagon (human recombinant) magnesium sulfate magnesium sulfate ondansetron potassium chloride OR potassium chloride OR potassium chloride IV (Adult) sodium phosphate IV OR sodium phosphate IV - central line OR sod phos di, mono-K phos mono sodium chloride sodium chloride sodium chloride 0.9 % Allergies: Patient has no known allergies. Labs Recent Results (from the past 24 hours) Comprehensive metabolic panel Collection Time: 08/30/24 5:41 AM Result Value Ref Range SODIUM 139 134 - 146 mmol/L POTASSIUM 3.8 3.5 - 5.0 mmol/L CHLORIDE 107 98 - 109 mmol/L CARBON DIOXIDE 25 22 - 32 mmol/L ANION GAP 7 5 - 15 mmol/L BLOOD UREA NITROGEN 13 5 - 23 mg/dL CREATININE 0.63 0.40 - 1.00 mg/dL GLUCOSE 116 (H) 65 - 99 mg/dL CALCIUM 8.6 8.5 - 10.5 mg/dL TOTAL PROTEIN 6.4 6.0 - 8.0 g/dL ALBUMIN 3.4 3.2 - 5.3 g/dL ALKALINE PHOSPHATASE 82 39 - 130 U/L AST 13 <=41 U/L ALT 15 <=31 U/L BILIRUBIN,TOTAL 0.4 0.3 - 1.2 mg/dL EGFR Non-Race Dependent >90 >=60 ml/min/1.73sq.m Magnesium Collection Time: 08/30/24 5:41 AM Result Value Ref Range MAGNESIUM 2.0 1.8 - 2.6 mg/dL Extra Tubes Collection Time: 08/30/24 5:41 AM Narrative The following orders were created for panel order Extra Tubes. Procedure Abnormality Status --------- ------ Light Blue Top[[id number]] Final result SST TOP[[id number]] Final result Please view results for these tests on the individual orders. Light Blue Top Collection Time: 08/30/24 5:41 AM Result Value Ref Range Extra Tube Auto Resulted SST TOP Collection Time: 08/30/24 5:41 AM Result Value Ref Range Extra Tube Auto Resulted CBC auto differential Collection Time: 08/30/24 5:42 AM Result Value Ref Range WBC 7.1 4 - 11 x10E9/L RBC Count 4.05 3.8 - 5.2 X10E12/L Hemoglobin 10.6 (L) 11.7 - 15.5 g/dL Hematocrit 31.6 (L) 35 - 47 % MCV 78 (L) 80 - 100 fL MCH 26.2 (L) 27 - 34 pg MCHC 33.6 32 - 36 g/dL RDW 15.2 (H) 11.5 - 15 % Platelet Count 239 150 - 450 X10E9/L MPV 9.8 7 - 12 fL Neutrophils % 57.1 % Lymphocytes % 32.2 % Monocytes % 7.3 % Eosinophils % 2.0 % Basophils % 1.4 % Neutrophils Absolute (A) 4.1 1.5 - 6.6 10*3/uL Lymphocytes Absolute 2.3 1.0 - 3.5 10*3/uL Monocytes Absolute 0.5 0.0 - 0.9 10*3/uL Eosinophils Absolute 0.1 0.0 - 0.4 10*3/uL Basophils Absolute 0.1 0.0 - 0.2 10*3/uL Differential Type AUTOMATED DIFFERENTIAL , urine Collection Time: 08/30/24 11:57 AM Specimen: Urine, Clean Catch Midstream Result Value Ref Range URINE Negative Negative Radiology X-ray chest 1 view Result Date: 08/29/2024 Narrative: Portable chest: HISTORY: Chest pain. Single view of the chest was obtained and compared to prior exam dated 212.5. Cardiac and mediastinal contours are stable. No focal infiltrate or effusion. No pneumothorax seen. IMPRESSION: No acute findings Finalized by Adam Sin MD on 08/29/2024 11:24 AM HOSPITAL PROBLEM LIST Principal Problem: POTS (postural orthostatic tachycardia syndrome) Active Problems: Syncope, unspecified syncope type Orthostatic hypotension Class 3 severe obesity due to excess calories with body mass index (BMI) of 40.0 to 44.9 in adult ([facility]) ASSESSMENT & PLAN POTS: telemetry monitor. Syncope: No imaging done in emergency department. We will get CT brain. Echocardiogram and carotid ultrasounds ordered. Orthostatic blood pressures. 2 L IV fluids received in ER. Continue normal saline at 125 mL/hr Hypotension: Increase midodrine to 5 mg t.i.d. with hold parameters. Orthostatic hypotension: Continue IV fluids. Add Florinef 0.1 mg b.i.d. Low hemoglobin: Likely delutional due to getting almost 4 L of fluids in the last 24 hours. Continue to monitor daily. Admission orders placed and home medications reconciled. DVT prophylaxis: EPC's and Lovenox. GI prophylaxis. Protonix PT/OT to evaluate and treat. DC planning: Discharge home in 1-2 days.. Sepsis suspected, no-not clinically evident at this time. Estiven Mendoza, NABIL-JOCE, 08/30/2024 1:29 PM [facility] Internal Medicine 7AM-7PM & 7PM-7AM: EpicChat or page through [employer]. This note is dictated with the use of M*Modal. Please note that this dictation was completed with computer voice recognition software. Quite often unanticipated grammatical, syntax, homophones, and other interpretive errors are inadvertently transcribed by the computer software. Please disregard these errors. Please excuse any errors that have escaped final proofreading. LORRAINE Whatley 08/30/24 1224 Physician Attestation I, Prema Reyes MD, personally performed a face to face diagnostic evaluation on this patient. I have reviewed the note authored by the advance practice provider including history, review of systems,physical examination,medical decision making and agree with the assessment and plan as written. I have seen and evaluated the patient, I have repeated the olson portions of the physical exam and concur with the MAICOL findings. I have reviewed all laboratory findings and imaging reports/films. I agree with the plan as noted. Patient with a past medical history of POTS is being admitted with syncope and orthostatic hypotension. IV normal saline at 1:25 a.m. mL/hour. CT brain report does not show any acute abnormality, check 2D echo Check carotid Dopplers. EKG shows sinus rhythm with a QTC of 452, trop less than 2 [facility] 08-30-2024 History and physical note Images from the original note were not included. [facility] [id number] Hospital Medicine History & Physical Patient: Jolene Morales Date of : 2000 Room: [facility] PCP: NO PCP, NO PCP Admission date: 08/29/2024 10:20 AM Encounter date: 08/30/24 Hospital Day: 2 SUBJECTIVE Jolene Morales is a 23 y.o. female who presents with chief complaint of irregular heart beat with syncope. Pt has history of POTS. Pt states she currently takes blood pressure medication as hers usually runs low. Pt states she woke up this morning feeling like she got hit by a truck, then proceeded to go to work, where she passed out in her car. Pt states she lost consciousness 2 or 3 times, which is normal for her, and she states this episode is similar to her POTS flare ups. Pt states she called her hand or machine paster, which instructed her to just come get checked out here. Pt states she is currently experiencing some nausea, body aches, chest pain, fatigue, and a headache. Pt denied any sick contacts. Pt states she did do a lot of physical work yesterday, which may have caused this. No leukocytosis. Slight anemia noted at 11.6. Metabolic panel benign. Thyroid within normal limits. Patient was given fluid bolus and admitted for further evaluation of dizziness. Patient was still complaining of dizziness during conversation. Orthostatic blood pressures positive. Patient was intermittently hypotensive. And does take midodrine at home. Allergies: Patient has no known allergies. Prior to Admission medications Medication Sig Start Date End Date Taking? Authorizing Provider benzonatate (TESSALON PERLES) 100 mg capsule Take 1 capsule (100 mg total) by mouth every 8 (eight) hours. 02/17/24 Yes LORRAINE Torres ivabradine (CORLANOR) 5 mg tablet tablet Take 1 tablet (5 mg total) by mouth in the morning and 1 tablet (5 mg total) before bedtime. 12/29/23 Yes Beatriz Kebede MD midodrine (PROAMATINE) 2.5 mg tablet Take 1 tablet (2.5 mg total) by mouth 2 (two) times a day. TAKE 4-5 HOURS APART DURING UPRIGHT HOURS 07/15/24 Yes Liz Mckeon MD ondansetron ODT (ZOFRAN ODT) 4 mg disintegrating tablet Dissolve 1 tablet (4 mg total) on tongue every 8 (eight) hours as needed for nausea. 06/29/24 Yes AURELIA Rangel vit no.451-oxis-guodf acid ( VITAMIN) 27 mg iron- 800 mcg tablet Take 1 tablet by mouth in the morning. 06/29/24 Yes AURELIA Rangel Code Status: Full Code Past Medical History: Patient has a past medical history of Asthma, Depression, Inappropriate sinus tachycardia, Polycystic ovary syndrome, Polyhydramnios affecting in third trimester (03/31/2023), and POTS (postural orthostatic tachycardia syndrome). Past Surgical History: Patient has a past surgical history that includes Tonsillectomy. Family History: Patient's family history includes Asthma in her mother; Breast cancer in her maternal grandmother; Dementia in her maternal grandfather; Depression in her sister; Diabetes in her maternal grandfather, maternal grandmother, and maternal uncle; Heart disease in her maternal grandmother; Irritable bowel syndrome in her paternal grandmother; Mental illness in her father, maternal grandmother, and mother; No Known Problems in her brother; Other in her father. Social History: Patient reports that she has never smoked. She has never used smokeless tobacco. She reports current alcohol use. She reports that she does not use drugs. Review of Systems Review of Systems Constitutional: Negative for activity change, appetite change, chills, diaphoresis, fatigue and fever. HENT: Negative for tinnitus and trouble swallowing. Respiratory: Negative for cough, chest tightness, shortness of breath and wheezing. Cardiovascular: Positive for palpitations. Negative for chest pain and leg swelling. Gastrointestinal: Negative for abdominal pain, diarrhea, nausea and vomiting. Genitourinary: Negative for difficulty urinating. Musculoskeletal: Negative for gait problem. Skin: Negative for rash. Neurological: Positive for dizziness. Negative for syncope, speech difficulty, weakness, light-headedness, numbness and headaches. Psychiatric/Behavioral: Negative for sleep disturbance. OBJECTIVE BP 101/60 Pulse 114 Temp 36.7 C (98.1 F) (Oral) Resp 18 Ht 162.6 cm (5' 4 ) Wt 113.4 kg (250 lb) SpO2 100% BMI 42.91 kg/m Temp: [36.3 C (97.4 F)-36.8 C (98.2 F)] 36.7 C (98.1 F) Pulse: [65-114] 114 Resp: [17-24] 18 BP: (86-117)/(31-77) 101/60 SpO2: [94 %-100 %] 100 % O2 Device: None (Room air) O2 Flow Rate (L/min): [0 L/min] 0 L/min Intake/Output Summary (Last 24 hours) at 08/30/2024 1329 Last data filed at 08/29/2024 1417 Gross per 24 hour Intake 1000 ml Output -- Net 1000 ml Physical Exam Physical Exam Vitals and nursing note reviewed. Constitutional: General: She is not in acute distress. Appearance: She is obese. HENT: Head: Normocephalic and atraumatic. Right Ear: External ear normal. Left Ear: External ear normal. Nose: Nose normal. Mouth/Throat: Mouth: Mucous membranes are moist. Pharynx: Oropharynx is clear. Eyes: Conjunctiva/sclera: Conjunctivae normal. Pupils: Pupils are equal, round, and reactive to light. Neck: Vascular: No carotid bruit or JVD. Cardiovascular: Rate and Rhythm: Normal rate and regular rhythm. Pulses: Normal pulses. Pulmonary: Effort: Pulmonary effort is normal. Breath sounds: Normal breath sounds. Abdominal: General: Bowel sounds are normal. There is no distension. Palpations: Abdomen is soft. Tenderness: There is no abdominal tenderness. Musculoskeletal: Right lower leg: No edema. Left lower leg: No edema. Lymphadenopathy: Cervical: No cervical adenopathy. Skin: General: Skin is warm and dry. Capillary Refill: Capillary refill takes less than 2 seconds. Neurological: Mental Status: She is alert and oriented to person, place, and time. Cranial Nerves: No cranial nerve deficit. Sensory: No sensory deficit. Psychiatric: Mood and Affect: Mood normal. Behavior: Behavior normal. Thought Content: Thought content normal. Judgment: Judgment normal. Medications Scheduled: dexAMETHasone, 4 mg, intravenous, Q12H ALEXANDER enoxaparin (LOVENOX) injection, 40 mg, subcutaneous, Daily [START ON 08/31/2024] fludrocortisone, 0.1 mg, oral, Daily midodrine, 5 mg, oral, TID sodium chloride, 3 mL, intravenous, Q12H ALEXANDER Infusions: dextrose 5 % in water, 100 mL/hr sodium chloride 0.9 %, 20 mL/hr sodium chloride 0.9 %, 125 mL/hr, Last Rate: 125 mL/hr (08/29/24 1724) sodium chloride 0.9 %, 125 mL/hr, Last Rate: 125 mL/hr (08/30/24 1202) As Needed: acetaminophen calcium gluconate calcium gluconate calcium gluconate dextrose dextrose 5 % in water dextrose 50 % in water (D50W) glucagon (human recombinant) magnesium sulfate magnesium sulfate ondansetron potassium chloride OR potassium chloride OR potassium chloride IV (Adult) sodium phosphate IV OR sodium phosphate IV - central line OR sod phos di, mono-K phos mono sodium chloride sodium chloride sodium chloride 0.9 % Allergies: Patient has no known allergies. Labs Recent Results (from the past 24 hours) Comprehensive metabolic panel Collection Time: 08/30/24 5:41 AM Result Value Ref Range SODIUM 139 134 - 146 mmol/L POTASSIUM 3.8 3.5 - 5.0 mmol/L CHLORIDE 107 98 - 109 mmol/L CARBON DIOXIDE 25 22 - 32 mmol/L ANION GAP 7 5 - 15 mmol/L BLOOD UREA NITROGEN 13 5 - 23 mg/dL CREATININE 0.63 0.40 - 1.00 mg/dL GLUCOSE 116 (H) 65 - 99 mg/dL CALCIUM 8.6 8.5 - 10.5 mg/dL TOTAL PROTEIN 6.4 6.0 - 8.0 g/dL ALBUMIN 3.4 3.2 - 5.3 g/dL ALKALINE PHOSPHATASE 82 39 - 130 U/L AST 13 <=41 U/L ALT 15 <=31 U/L BILIRUBIN,TOTAL 0.4 0.3 - 1.2 mg/dL EGFR Non-Race Dependent >90 >=60 ml/min/1.73sq.m Magnesium Collection Time: 08/30/24 5:41 AM Result Value Ref Range MAGNESIUM 2.0 1.8 - 2.6 mg/dL Extra Tubes Collection Time: 08/30/24 5:41 AM Narrative The following orders were created for panel order Extra Tubes. Procedure Abnormality Status --------- ------ Light Blue Top[[id number]] Final result SST TOP[[id number]] Final result Please view results for these tests on the individual orders. Light Blue Top Collection Time: 08/30/24 5:41 AM Result Value Ref Range Extra Tube Auto Resulted SST TOP Collection Time: 08/30/24 5:41 AM Result Value Ref Range Extra Tube Auto Resulted CBC auto differential Collection Time: 08/30/24 5:42 AM Result Value Ref Range WBC 7.1 4 - 11 x10E9/L RBC Count 4.05 3.8 - 5.2 X10E12/L Hemoglobin 10.6 (L) 11.7 - 15.5 g/dL Hematocrit 31.6 (L) 35 - 47 % MCV 78 (L) 80 - 100 fL MCH 26.2 (L) 27 - 34 pg MCHC 33.6 32 - 36 g/dL RDW 15.2 (H) 11.5 - 15 % Platelet Count 239 150 - 450 X10E9/L MPV 9.8 7 - 12 fL Neutrophils % 57.1 % Lymphocytes % 32.2 % Monocytes % 7.3 % Eosinophils % 2.0 % Basophils % 1.4 % Neutrophils Absolute (A) 4.1 1.5 - 6.6 10*3/uL Lymphocytes Absolute 2.3 1.0 - 3.5 10*3/uL Monocytes Absolute 0.5 0.0 - 0.9 10*3/uL Eosinophils Absolute 0.1 0.0 - 0.4 10*3/uL Basophils Absolute 0.1 0.0 - 0.2 10*3/uL Differential Type AUTOMATED DIFFERENTIAL , urine Collection Time: 08/30/24 11:57 AM Specimen: Urine, Clean Catch Midstream Result Value Ref Range URINE Negative Negative Radiology X-ray chest 1 view Result Date: 08/29/2024 Narrative: Portable chest: HISTORY: Chest pain. Single view of the chest was obtained and compared to prior exam dated 212.5. Cardiac and mediastinal contours are stable. No focal infiltrate or effusion. No pneumothorax seen. IMPRESSION: No acute findings Finalized by Adam Sin MD on 08/29/2024 11:24 AM HOSPITAL PROBLEM LIST Principal Problem: POTS (postural orthostatic tachycardia syndrome) Active Problems: Syncope, unspecified syncope type Orthostatic hypotension Class 3 severe obesity due to excess calories with body mass index (BMI) of 40.0 to 44.9 in adult ([facility]) ASSESSMENT & PLAN POTS: telemetry monitor. Syncope: No imaging done in emergency department. We will get CT brain. Echocardiogram and carotid ultrasounds ordered. Orthostatic blood pressures. 2 L IV fluids received in ER. Continue normal saline at 125 mL/hr Hypotension: Increase midodrine to 5 mg t.i.d. with hold parameters. Orthostatic hypotension: Continue IV fluids. Add Florinef 0.1 mg b.i.d. Low hemoglobin: Likely delutional due to getting almost 4 L of fluids in the last 24 hours. Continue to monitor daily. Admission orders placed and home medications reconciled. DVT prophylaxis: EPC's and Lovenox. GI prophylaxis. Protonix PT/OT to evaluate and treat. DC planning: Discharge home in 1-2 days.. Sepsis suspected, no-not clinically evident at this time. LORRAINE Whatley, 08/30/2024 1:29 PM [facility] Internal Medicine 7AM-7PM & 7PM-7AM: EpicChat or page through On-Call Finder. This note is dictated with the use of M*Modal. Please note that this dictation was completed with computer voice recognition software. Quite often unanticipated grammatical, syntax, homophones, and other interpretive errors are inadvertently transcribed by the computer software. Please disregard these errors. Please excuse any errors that have escaped final proofreading. LORRAINE Whatley 08/30/24 1224 Physician Attestation I, Prema Reyes MD, personally performed a face to face diagnostic evaluation on this patient. I have reviewed the note authored by the advance practice provider including history, review of systems,physical examination,medical decision making and agree with the assessment and plan as written. I have seen and evaluated the patient, I have repeated the olson portions of the physical exam and concur with the MAICOL findings. I have reviewed all laboratory findings and imaging reports/films. I agree with the plan as noted. Patient with a past medical history of POTS is being admitted with syncope and orthostatic hypotension. IV normal saline at 1:25 a.m. mL/hour. CT brain report does not show any acute abnormality, check 2D echo Check carotid Dopplers. EKG shows sinus rhythm with a QTC of 452, trop less than 2 documented in this encounter [facility] 08-30-2024 Plan of care note Problem: Knowledge Deficit Goal: Patient/patient airport representative demonstrates understanding of disease process, treatment plan, medications, and discharge instructions Description: INTERVENTIONS 1. Complete learning assessment and assess knowledge base 2. Provide teaching at level of understanding 3. Provide teaching via preferred learning method(s) Outcome: Progressing Note: Evaluation of progress towards goal: POC discussed with patient. Questions answered PRN. Problem: Discharge Planning Goal: Discharge to post-acute [...] Progressing Note: Evaluation of progress towards goal: Continue to assess for when appropriate.Continue to assess for when appropriate. [facility] 08-29-2024 Plan of care note Problem: Safety Goal: Patient will be injury free during hospitalization Description: INTERVENTIONS: 1. Assess patient's risk for falls and implement fall prevention plan of care per policy 2. Provide and maintain a safe environment 3. Proper use of double Identifiers 4. Medication administration using the 5 rights 5. Hand hygiene 6. Specimens are labeled at the bedside 7. Instruct patient/ patient airport representative about use of safety devices 8. Include patient/ patient airport representative in decisions related to safety Outcome: Progressing Note: Evaluation of progress towards goal: Pt remains free from falls or accidental injury during stay. Fall prevention measures in place. Hourly rounding per RN and NA maintained. Problem: Knowledge Deficit Goal: Patient/patient airport representative demonstrates understanding of disease process, treatment plan, medications, and discharge instructions Description: INTERVENTIONS 1. Complete learning assessment and assess knowledge base 2. Provide teaching at level of understanding 3. Provide teaching via preferred learning method(s) Outcome: Progressing Note: Evaluation of progress towards goal: POC discussed with patient. Questions answered PRN. [facility] 08-29-2024 Emergency department Triage note Pt states she did a lot of physical activity yesterday and she is having POTS flare up today. Pt called her cards because she also had palpitations who told her to come here and she also needs a work note. [facility] 08-29-2024 Emergency department Note Pt states she did a lot of physical activity yesterday and she is having POTS flare up today. Pt called her cards because she also had palpitations who told her to come here and she also needs a work note. documented in this encounter [facility] 07-28-2024 History of Presen t illness Narrative Images from the original note were not included. NAME: Jolene Morales : 2000 HISTORY OF PRESENT ILLNESS: NEW PT Jolene Morales is an 23 y.o. @ female. (NEW PT) - LT KNEE PAIN FOR 6 DAYS (DOI 07/22/24) - HURT KNEE WHILE GETTING OFF OF THE TOILET - BELIEVES SHE DISLOCATED PATELLA, NOTES IT DID GO BACK INTO PLACE ON IT'S OWN - WENT TO [facility] ON 07/23/24; [place] W/ XRAY -WENT TO [facility] ER ON 07/26/24; [place] W/ XRAY AND NAPROXEN - THEN WENT TO [facility] ER, GIVEN IMMOBILIZER. NOTES THIS HAS HAPPENED 4 YEARS AGO. XRAY [facility] 07/26/24 XRAY [facility]25 STATES HER KNEE HAS DISLOCATED A COUPLE TIMES SINCE THE INITIAL 07/22. WEARING IMMOBILIZER AND NWB WITH CRUTCHES. PAIN ANTERIOR-MEDIAL KNEE AND DOWN LEG. +TYL AND IBU PRN. +ICE PRN. DIFFICULTY MOVING TOES. IF SHE TRIES TO WIGGLE TOES, PAIN SHOOTS UP LEG. NUMBNESS WHEN SITTING POSTERIOR THIGH. +SWELLING. 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 WAKES PT AT HS IF SHE TURNS. HAS PREDNISONE, HASN'T PICKED IT UP YET. PAST MEDICAL HISTORY: Past Medical History: Diagnosis Date Asthma Depression (CMS/HCC) Hypotension PCOS (polycystic ovarian syndrome) POTS (postural orthostatic tachycardia syndrome) PAST SURGICAL HISTORY: Past Surgical History: Procedure Laterality Date TONSILLECTOMY SOCIAL HISTORY: Social History Occupational History Not on file Tobacco Use Smoking status: Never Smokeless tobacco: Never Vaping Use Vaping status: Every Day Substances: Nicotine, Flavoring Substance and Sexual Activity Alcohol use: Yes Drug use: Not on file Sexual activity: Not on file ALLERGIES: Allergies Allergen Reactions Morphine GI intolerance HOME MEDICATIONS: Current Outpatient Medications Medication Instructions Ivabradine HCl 5 mg, 2 times daily midodrine (PROAMATINE) 2.5 mg, 2 times daily naproxen (NAPROSYN) 375 mg, 2 times daily with meals ondansetron ODT (ZOFRAN-ODT) 4 mg, Every 8 hours PRN REVIEW OF SYSTEMS: Review of Systems Constitutional: Negative for fatigue, fever and unexpected weight change. Eyes: Negative for redness and visual disturbance. Gastrointestinal: Negative for abdominal pain. Denies Indigestion Musculoskeletal: See note: Skin: Negative for color change and rash. Neurological: Negative for light-headedness and numbness. Vitals: There is no height or weight on file to calculate BMI. Tobacco Use: Low Risk (07/28/2024) Patient History Smoking Tobacco Use: Never Smokeless Tobacco Use: Never Passive Exposure: Not on file Alcohol Use: Not At Risk (08/23/2023) Received from [facility] Frequency of Alcohol Consumption: Never Average Number of Drinks: Patient does not drink Frequency of Binge Drinking: Never PHYSICAL EXAM: Knee Musculoskeletal Exam Gait Antalgic: left Assistive device: crutches Gait additional comments: Knee immobilizer Inspection Left Erythema: none Effusion: none Edema: mild Ecchymosis: none Deformity: none Palpation Left Increased warmth: none Masses: none Crepitus: none Tenderness: present Medial retinaculum: moderate Patella: moderate Range of Motion Left Active extension: 0 Passive extension: 0 Active flexion: 25 Passive flexion: 25 Range of motion additional comments: Flexion limited due to guarding Strength Left Extension: 4-/5. Extension is affected by pain. Strength additional comments: Unable to fully test flexion due to pain Instability Left Varus stress grade: normal Valgus stress grade: normal Special Signs Left Straight leg raise comment: pain, but able ot straight leg raise Patellar apprehension: severe General Neurological: alert and oriented x3 IMAGING: I reviewed xray from [facility] of the left knee which showed no acute fracture or dislocations. Procedures No orders of the defined types were placed in this encounter. ASSESSMENT: ICD-10-CM 1. Dislocation of left patella, initial encounter S83.005A 2. Acute pain of left knee M25.562 PLAN: I reviewed xray findings with the patient and discussed treatment options, answered questions. I believe patient has had multiple lateral patella dislocations after initial dislocation on 07/22 due to not using a knee immobilizer. I recommend she continue in knee immobilizer at all times except bathing for the next 4 weeks. She will call with any worsening symptoms. If progressing in 4 weeks consider transition to J-brace and starting PT. If still having issues patient may need to see knee specialist. Questions answered in laymen terms at the bedside. The diagnosis, home exercise plan and any ongoing restrictions/ recommendations reviewed. If unable to be reached in office, I recommend evaluation at nearest Emergency Room if any symptoms worsened or new symptoms develop for requiring urgent evaluation. Ernesto Dave APRN, RESIDENTIAL TREATMENT STAFF-C documented in this encounter [facility] 07-23-2024 Evaluation note Diagnosis Onset Date Resolution Left knee pain acute July 23, 2024 12:42pm [facility] Work Phone: 1(683) 610-394905-20-2025 History of Present illness Narrative* Yamileth San LPN - 07/19/2024 1:30 PM EDT Pt is in the office for possible loss Pt request Contraception Pt would like IUD or OCP Pt has no other concerns at todays visit * AURELIA Biswas - 07/19/2024 1:30 PM EDT Subjective Patient ID: Jolene Morales is a 23 y.o. female who presents for confirmation of visit.Pt was told she was 06/28 in [place] ED. Her HCG at that time was [...] intercourse in over two weeks. Please see separateinsertion note for insertion. UPT negative HPI The following portions of the patient's history were reviewed and updated as appropriate: allergies, current medications, past family history, past medical history, past social history, past surgicalhistory, problem list, and medication reconciliation was completed including current medication andpost discharge medication. Review of Systems Constitutional: Negative. [...] weeks for string check. AURELIA Biswas 07/19/24 1421 * AURELIA Biswas - 07/19/2024 1:30 PM EDT IUD insertion procedure Indications: Prevention of LMP: [...] 2 and 10 o'clock. Large bleeding due toTenaculum placement, silver nitrate utilized. EBL 200 mL. Bleeding stopped after silver nitrate applied. SHERIF Guillen to room, tenaculum not reapplied. Uterus sounded to 7 cm. IUD inserted without difficulty. String visible and trimmed to 2 inches. Patient tolerated procedure well. Progressive Assembler And Fitter offered, declined IUD Information: Mirena, Lot # [id number], Expiration date 07/30/26. Condition: Stable Complications: None Plan: The patient was advised to call for any fever or for prolonged or severe pain or bleeding. She was advised to use NSAID as needed for mild to moderate pain. Disc risks, benefits and alternatives of irregular VB/cramping, advised protected sex for 7 days ifhormonal IUD. All questions answered, pt understands. RTC in 4 weeks for string check. Safe sex practice reviewed. AURELIA Biswas 07/19/24 1421 [facility] History of Present illness Narrative* Liz Mckeon MD - 07/15/2024 1:45 PM EDT Jolene Landin Carmen Date of visit: 07/15/2024 Date of : [...] (100 mg total) by mouth every 8 (eight)hours. (Patient not taking: Reported on 06/14/2024) 23 [...] Reported on 07/15/2024) 30 tablet 0 vit no.087-gybx-lhdpz acid ( VITAMIN) 27 mg iron- 800 [...] insurance but now she is back on shehas had no improvement in her syncope near-syncope [...] file Stress: No Stress Concern Present (09/18/2022) [place] [employer] - Occupational Stress Questionnaire Feeling of Stress : Not at all Social Connections: Moderately Isolated (09/18/2022) Social Connection and Isolation Panel [NHANES] Frequency of Communication with Friends and Family: More than three times a week Frequency of Social Gatherings with Friends and Family: More than three times a week Attends Jainism Services: Never Active Member of Clubs or [...] defined for this encounter. [facility] Miscellaneous Notes* Telephone Encounter - Eulalia Torres CMA - 07/14/2024 9:55 AM EDT [employer] MESSAGE REMINDER SENT TO PT TO REMIND OF PPC APPT. [facility] Telephone encounter Note* Telephone Encounter - Eulalia Torres CMA - 07/14/2024 9:55 AM EDT [employer] MESSAGE REMINDER SENT TO PT TO REMIND OF PPC APPT. [facility]05-03-2025 Hospital Discharge instructions* Discharge Instructions* Lukas Gautam MD - 07/02/2024 7:15 PM [...] any other acute concerns documented in this encounterBon [facility] History of Present illness Narrative* Wilma Love LPN - 06/29/2024 1:00 PM EDT Patient here for diarrhea x4 days Patient states she took test and came back positive States diarrhea started Thursday afternoon Patient states she has POTS syndrome States ER said they couldn't do anything for her Went to [facility] Thursday and that's when it showed she was Patient doesn't know last period since she has PCOS UPT ran in clinic and was positive * Mavis Rock, NABIL-CNM - 06/29/2024 1:00 PM EDT Subjective Patient ID: Jolene Morales is a 23 y.o. female. Jolene presents today with concerns for diarrhea that has been going on for 4 days. She found out she is yesterday. Seen Thursday in [place] ER for POTS symptoms, Wanted to do IV hydration she left AMA and was having diarrhea. States she went back to there ER yesterday but to [place] because her diarrhea worsened. She states it [...] is colicky. Is not having any vomiting. Veryslight nausea when eating but just worsening diarrhea, RUQ pain. LMP unknown d/t PCOS Was just dx with POTS has f/u with cardiology in June The following portions of the patient's history were reviewed and updated as appropriate: allergies, current medications, past family history, past medical history, past social history, past surgicalhistory, problem list, and medication reconciliation was completed including current medication andpost discharge medication. Review of Systems Constitutional: Negative. [...] Dissolve 1 tablet (4 mg total) on tongueevery 8 (eight) hours as needed for nausea. Positive test - vit no.821-zqqr-cisye acid ( VITAMIN) 27 mg iron- 800 mcg tablet; Take 1 tablet by mouth in the morning. - hCG, quantitative, ; Future repeat tomorrow. Discussed based on levels very early around 4 weeks. F/u Confirmation of in 2 weeks with US. Low suspicion for ectopic givenlocation of pain and symptoms. Reviewed s/s and [...] see if will help AURELIA Rangel 06/29/24 1449 documented in [facility] Hospital Discharge instructions* Discharge Instructions* Donaldo Chase II, PA-C - 06/28/2024 6:27 PM EDT [...] to the hospital. If you're vomiting and cannottake the medicines that were prescribed you should return to the hospital. If you're having persistent fevers you should return to the hospital. If you have any question of whether or not your symptoms are serious enough or for any other urgent concerns- always return to the hospital for repeat evaluation. * Attachments The following attachments cannot be sent through Care Everywhere. * Diarrhea ([place]) * : Abdominal Pain ([place]) documented in this encounterBon [facility] History of Present illness Narrative* Juanita Mitchell RN - 06/15/2024 4:44 PM EDT left for patient to determine if she needs the rabies vaccines ordered. According to the notes she refused it. [facility] Miscellaneous Notes* Telephone Encounter - May - 10/10/2024 1:57 PM EDT Patient stopped taking Metformin 500mg. It was giving her diarrhea. documented in [facility] Miscellaneous Notes* Telephone Encounter - Argelia Francois CMA - 03/18/2024 3:55 PM EST Called patient to remind them to bring their most current copy of their medication list with them to their appt. Patient verbalizes understanding. documented in this encounterA[facility]01-[facility] Telephone encounter Note* Telephone Encounter - Argelia Francois CMA - 03/18/2024 3:55 PM EST Called patient to remind them to bring their most current copy of their medication list with them to their appt. Patient verbalizes understanding. [facility] History of Present illness Narrative* Beatriz Kebede MD - 12/29/2023 1:00 PM EDT Jolene Urvashi Burrows Date of visit: 12/29/2023 Date of [...] significant symptoms including syncope. She had a Holtermonitor in place during which time she experienced all of her symptoms including syncope, and it was not significant for anything except sinus tachycardia. She had a trial of beta- january, however experienced more symptoms Specifically dizziness and [...] file Stress: No Stress Concern Present (09/18/2022) [place] [employer] - Occupational Stress Questionnaire Feeling of Stress : Not at all Social Connections: Moderately Isolated (09/18/2022) Social Connection and Isolation Panel [NHANES] Frequency of Communication with Friends and Family: More than three times a week Frequency of Social Gatherings with Friends and Family: More than three times a week Attends Jainism Services: Never Active Member of Clubs or [...] has had symptoms during her Holter monitor th at was significant for sinus tachycardia. We have tried beta-january, without any improvement in symptoms. We discussed a trial of ivabradineas this may be her best option. Discussed lifestyle and dietary modifications in the use of compression stockings. Referral to DR Villegas. Referral to PT. TODAYS ORDERS No orders of the defined types were placed in this encounter. FOLLOW UP No follow-ups on file. PCP: NO PCP, NO PCP Referring Physician: No referring provider defined for this encounter. documented in this encounterA[facility]10-[facility] Miscellaneous Notes* Telephone Encounter - Argelia Francois CMA - 12/28/2023 3:07 PM EDT Called patient to remind them to bring their most current copy of their medication list with them to their appt. Patient verbalizes understanding. documented in this encounterA[facility]10-[facility]24 Telephone encounter Note* Telephone Encounter - Argelia Francois CMA - 12/28/2023 3:07 PM EDT Called patient to remind them to bring their most current copy of their medication list with them to their appt. Patient verbalizes understanding. [facility] Miscellaneous Notes* Telephone Encounter - Jarad Garner RN - 11/30/2023 10:50 AM EDT P/c from pt asking for an intermittent [...] at the ER since seeing [facility] 08/28/23. [employer] Core Transformer Assembler advises call 911 [address] drive her to ER with episodes. PT reports staying well hydrated. Pt has a f/u scheduled 12/29/23 and would like a message sent to [facility] to review and advise. * Telephone Encounter - Beatriz Kebede MD - 11/30/2023 10:50 AM EDT You can provided to her but only evaluated for this month so that we can ensure that we follow-up with her and work with her symptoms. * Telephone Encounter - Jarad Garner RN - 11/30/2023 10:50 AM EDT Noted. Toprol also flagged for removal - pt stopped on own. Letter created and sent to pt via Leap. * Addendum Note - LORRAINE Walters - 11/30/2023 10:50 AM EDTAddended by: KLARISSA SANDY on: 12/02/2023 08:21 AM Modules accepted: Orders documented in this encounterA[facility] Hospital09-30-[facility]24 Note* Addendum Note - LORRAINE Walters - 11/30/2023 10:50 AM EDTAddended by: KLARISSA SANDY on: 12/02/2023 08:21 AM Modules accepted: Orders [facility] Work Phone: 1(836) 870-496209-30-2024 Telephone encounter Note* Telephone Encounter - Jarad Garner RN - 11/30/2023 10:50 AM EDT P/c from pt asking for an intermittent [...] at the ER since seeing [facility] 08/28/23. [employer] Core Transformer Assembler advises call 911 [address] her to ER with episodes. PT reports staying well hydrated. Pt has a f/u scheduled 12/29/23 and would like a message sent to [facility] to review and advise. [facility] Telephone encounter Note* Telephone Encounter - Beatriz Kebede MD - 11/30/2023 10:50 AM EDT You can provided to her but only evaluated for this month so that we can ensure that we follow-up with her and work with her symptoms. [facility] Tele[facility] encounter Note* Telephone Encounter - Jarad Garner RN - 11/30/2023 10:50 AM EDT Noted. Toprol also flagged for removal - pt stopped on own. Letter created and sent to pt via Leap. [facility] History of Present illness Narrative* Beatriz Kebede MD - 08/28/2023 1:15 PM EDT Jolene Burrows Date of visit: 08/28/2023 Date [...] 2 tablets (1,000 mg total) by mouth every6 (six) hours as needed for pain. (Patient not taking: Reported on 08/28/2023) 30 tablet 0 docusate sodium (COLACE) 100 mg capsule Take 1 capsule (100 mg total) by mouth in the morning and 1capsule (100 mg total) before bedtime. (Patient not [...] Reported on 05/08/2023) 30 tablet 2 vit 92-pnhv-klmyo-dha 18-1-350 mg capsule Take 1 tablet by mouth in the morning. Indications: , prevention of neural tube defect when . (Patient not taking: Reported on 05/08/2023) 90 capsule 4 No current facility-administered medications for this visit. Chief Complaint Patient presents with Follow-up Syncope Shortness of Breath ER [facility] History of Present Illness This is a [...] file Stress: No Stress Concern Present (09/18/2022) [employer] [place] [employer] - Occupational Stress Questionnaire Feeling of Stress : Not at all Social Connections: Moderately Isolated (09/18/2022) Social Connection and Isolation Panel [NHANES] Frequency of Communication with Friends and Family: More than three times a week Frequency of Social Gatherings with Friends and Family: More than three times a week Attends Jainism Services: Never Active Member of Clubs or [...] structural heart disease. ECG shows sinus rhythm andis otherwise unremarkable. We discussed lifestyle and dietary [...] defined for this encounter. documented in this encounterNortheastern Vermont Regional HospitalGlossi, Inc06-27-2024 Miscellaneous Notes* Telephone Encounter - Eulalia Torres CMA - 08/27/2023 9:20 AM EDT Left message for patient to remind them to bring their most current medication list with them to their appointment. documented in this encounterA[facility] Telephone encounter Note* Telephone Encounter - Eulalia Torres CMA - 08/27/2023 9:20 AM EDT Left message for patient to remind them to bring their most current medication list with them to their appointment. [facility] Discharge instructions* Discharge Instructions* Taylor Chapin PA-C - 08/23/2023 12:38 PM EDT Increase your fluid intake, hydration, sodium intake, and wear your compression stockings. telemetry monitor is in place for 7 days and follow-up will be with cardiology. * Attachments The following attachments cannot be sent through Care Everywhere. * Fainting ([place]) * Orthostatic Hypotension ([place]) * POTS (Postural Orthostatic Tachycardia Syndrome): General Info ([place]) documented in [facility] History of Present illness Narrative* Anita Trejo LPN - 06/12/2023 1:00 PM EDT Pt here for BC maintenance Currently on OCP, is consistent with taking on time * AURELIA Rangel - 06/12/2023 1:00 PM EDT Subjective Patient ID: Jolene Burrows is a 22 y.o. female. Jolene presents today initially for annual. Switched to med check visit. She is taking slynd she likes this method, has 10 refills. She stopped taking her zoloft. She states her mood feels stable. She has good family support. 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 RUKHSANA is still looking for work. He lost [...] past medical history, past social history, past surgicalhistory, problem list, and medication reconciliation was completed including current medication andpost discharge medication. Review of Systems Constitutional: Negative. [...] 21 at that time AURELIA Rangel 06/12/23 3815 documented in this encounterJ.W. Ruby Memorial HospitalTrackR [id number] History of Present illness Narrative* ROSEY Barrow - 05/08/2023 4:40 PM EST SOCIAL WORK NOTE: ON-GOING Consult: SW consult [...] needs her and she wouldn't do anything totake herself away from him. Pt's delbertance' had a bad sledding accident and wasn't [...] Barrow 05/08/23 4:46 PM documented in this encounterAultman Hospital03-08-2024 History of Present illness Narrative* Anita Trejo LPN - 05/08/2023 1:00 PM EST Pt here for 5WKPP Visit States baby and her are doing well Pt is Breast and formula feeding EPDS= 8, one to last question Control plans: planning OCP * AURELIA Powell - 05/08/2023 1:00 PM EST Joleen Landin Burrows is a 22 y.o. at 4 [...] past medical history, past social history, past surgicalhistory, problem list and medication reconciliation was completed including current medication and post discharge medication. BABY Baby is a male. Baby is feeding by both breast and bottle - Enfamil Nutramigen. Sql Bi Developer: Nelda carter wound care rn plan: family Review of Systems Constitutional: negative [...] AURELIA Powell 05/08/23 1713 documented in this encounterJ.W. Ruby Memorial HospitalSafetyPay Beaumont [id number] Miscellaneous Notes* Note - Jo Muro RN - 04/14/2023 11:54 AM EST This note was copied from a baby's chart. Met with mom at infant's bedside. States that she continues to pump for baby, getting about 30-40mls each time. She has been latching to breast more often and he has been able to transfer goodamounts of milk. Given warmline number and encouraged to make an outpatient appointment for continued support at home. Given NICU office number for any questions or concerns related to pumping or supply. No further questions, encouraged to reach out for any further assistance. documented in this encounterAultman Hospital02-13-2024 Obstetrics Note* Note - Jo Muro RN - 04/14/2023 11:54 AM EST This note was copied from a baby's chart. Met with mom at 's bedside. States that she continues to pump for baby, getting about 30-40mls each time. She has been latching infant to breast more often and he has been able to transfer goodamounts of milk. Given warmline number and encouraged to make an outpatient appointment for continued support at home. Given NICU office number for any questions or concerns related to pumping or supply. No further questions, encouraged to reach out for any further assistance. [facility] Miscellaneous Notes* Note - Elisa Kim RN - 04/13/2023 11:30 AM EST This note was copied from a baby's chart. Met with mother at infants bedside. States pumping is going well and supply is stable. Mother has been putting infant to breast and doing well. Test weight preformed. Mother pumped and hour before breast attempt. Recommend to put to breast then pump. Starting weight was 3508 second weight was 3532 in 9 minutes. believes transferred more. Issues with weighing, had [...] Questions answered, encouragement given. documented in this encounterAultman Hospital02-12-2024 Obstetrics Note* Note - Elisa Kim RN - 04/13/2023 11:30 AM EST This note was copied from a baby's chart. Met with mother at infants bedside. States pumping is going well and supply is stable. Mother has been putting infant to breast and doing well. Test weight preformed. Mother pumped and hour before breast attempt. Recommend to put infant to breast then pump. Starting weight was 3508 second weight was 3532 in 9 minutes. believes infant transferred more. Issues with weighing, had to reset scale after feed. Recommend test weight later. Plan: Offer breast each feed when cues for 5-10 minutes. Infant Feeding Cues: [...] after 5-10 minutes does not latch but continues to show feeding cues, offer bottle. If after 5-10 minutes does not latch but does not show the feeding cues for a bottle, start gavage fed and allow infant to have continued access to breast. Questions answered, encouragement given. [facility] Miscellaneous Notes* Note - Jo Muro RN - 04/10/2023 12:58 PM EST This note was copied from a baby's chart. Met with mom at 's bedside. States that pumping is going well, [...] attempts and stays latched-on. documented in this encounterAultman Hospital02-09-2024 Obstetrics Note* Note - Jo Muro RN - 04/10/2023 12:58 PM EST This note was copied from a baby's [...] easily with minimal attempts and stays latched-on. [facility]02-07-2024 Miscellaneous Notes* Note - Juanita Perez RN - 04/08/2023 8:40 PM EST This note was copied from a baby's chart. Met with mother at infants bedside. Reports supply is increasing. Pumping 40- 60ml every 3 hours. Has been putting baby to breast and able to get him to latch at times. Latching better to left than right in football hold. Assisted with cross cradle position to right side. Baby opens mouth but no latch achieved. Crying and thrusting back from breast. Tried football hold to left and he did the same.Encouraged lots of skin to skin and continue to work on latching. Can use bottle as a teaser bottle. With teaser given him a few sucks from bottle, once he is sucking regularly and calm take away bottle and then try to latch him to breast. Encouraged to call out for for assistance and with any questions. Verbalized understanding. Support and encouragement given. documented in this encounterAultman Hospital02-07-2024 Obstetrics Note* Note - Juanita Perez RN - 04/08/2023 8:40 PM EST This note was copied from a baby's chart. Met with mother at infants bedside. Reports supply is increasing. Pumping 40- 60ml every 3 hours. Has been putting baby to breast and able to get him to latch at times. Latching better to left than right in football hold. Assisted with cross cradle position to right side. Baby opens mouth but no latch achieved. Crying and thrusting back from breast. Tried football hold to left and he did the same.Encouraged lots of skin to skin and continue to work on latching. Can use bottle as a teaser bottle. With teaser given him a few sucks from bottle, once he is sucking regularly and calm take away bottle and then try to latch him to breast. Encouraged to call out for for assistance and with any questions. Verbalized understanding. Support and encouragement given. [facility] History of Present illness Narrative* Federica Woods APRN-SHERIF - 04/08/2023 1:45 PM EST This call is considered a telephone visit, [...] vaginal delivery. Reports she is staying at [facility] and visiting baby in NICU, she states baby is doing better. The patient feels well. The patient denies emotional concerns. Pain is well controlled without medications. Pt had to be called & reminded of video visit & then of user difficulties, pt agreeable. Pt admits to complications with heart palpitations with every shower she takes, admits she has not called hand or machine paster yet but will today to schedule appointment. [...] past medical history, past social history, past surgicalhistory, problem list, and medication reconciliation was completed including current medication andpost discharge medication. Review of Systems Pertinent items [...] AURELIA Smith 04/10/23 1531 documented in this encounterJ.W. Ruby Memorial HospitalSafetyPay [facility]umont [id number] Miscellaneous Notes* Note - Rina Sands RN - 04/07/2023 9:00 PM EST This note was copied from a baby's chart. Met with mother at 's bedside. States pumping is going well and her supply is increasing. No pain reported. States is latching well, hearing swallows at breast. Reports he has been dripping milk out of his mouth during feeds at breast and with the bottle. States this just started todayand that he was sleepy after his picc [...] with finger to take baby off, try tolatch again documented in this encounterAultman Hospital02-06-2024 Obstetrics Note* Note - Rina Sands RN - 04/07/2023 9:00 PM EST This note was copied from a baby's chart. Met with mother at 's bedside. States pumping is going well and her supply is increasing. No pain reported. States is latching well, hearing swallows at breast. Reports he has been dripping milk out of his mouth during feeds at breast and with the bottle. States this just started todayand that he was sleepy after his picc [...] with finger to take baby off, try tolatch again [facility]02-05-2024 Miscellaneous Notes* Note - Elisa Kim RN - 04/06/2023 2:30 PM EST This note was copied from a baby's chart. Met with mother at infants bedside. Assisted mother in putting infant to breast. Infant becomes frantic easily. Recommend to put infant to breast in a quiet, alert state if able. And Skin to skin is a great way to calm infant. Started in cross cradle and quickly moved to football hold. After severall minutes infant latched with audible swallows for 5-10 minutes. then moved to other breast.Used teaser bottle to help infant latch. Teaser Bottle: Hold infant in comfortable position. Give infant 5-6 sucks from bottle using infant led [...] Questions answered, encouragement given. documented in this encounterAultman Hospital02-05-2024 Obstetrics Note* Note - Elisa Kim RN - 04/06/2023 2:30 PM EST This note was copied from a baby's chart. Met with mother at infants bedside. Assisted mother in putting infant to breast. Infant becomes frantic easily. Recommend to put to breast in a quiet, alert state if able. And Skin to skin is a great way to calm . Started in cross cradle and quickly moved to football hold. After severall minutes latched with audible swallows for 5-10 minutes. Infant then moved to other breast.Used teaser bottle to help latch. Teaser Bottle: Hold infant in comfortable position. Give 5-6 sucks from bottle using led feeding Remove bottle and offer breast Teaser bottles help calm and stimulate them for feeding time. Infant [...] a bottle, start gavage fed and allow infant to have continued access to breast. Questions answered, encouragement given. [facility]02-02-2024 Nurse Note* Gloria Silverman RN - 04/03/2023 3:24 PM EST Patient discharged to home with all belongings in stable condition. Ambulated off unit with FOB, in NICU. [place] supplies and infant gift pack given. Verbalized understanding of discharge instructions again. Agreeable to follow up visit with OBGYN. Patient left via personal vehicle to home. Ptand FOB application accepted at [facility]02-02-2024 Nurse Note* Gloria Silverman RN - 04/03/2023 3:24 PM EST Patient discharged to home with all belongings in stable condition. Ambulated off unit with FOB, in NICU. [place] supplies and infant gift pack given. Verbalized understanding of discharge instructions again. Agreeable to follow up visit with OBGYN. Patient left via personal vehicle to home. Ptand FOB application accepted at [facility] * Gloria Silverman RN - 04/03/2023 2:47 PM EST AVS printed, discussed, signed, and copy given to patient. Patient verbalizes understanding of discharge instructions. No further questions at this time. documented in this encounterAultman Hospital02-02-2024 Nurse Note* Gloria Silverman RN - 04/03/2023 2:47 PM EST AVS printed, discussed, signed, and copy given to patient. Patient verbalizes understanding of discharge instructions. No further questions at this time. [facility] Discharge instructions* Discharge Instructions* Gloria Silverman RN - 04/03/2023 2:08 PM [...] (use each time after [place] care) Sexual [place] No tampons, douching, or sexual intercourse until [...] doctor/CNM You may start Kegel exercises now * Attachments The following attachments cannot be sent through Care Everywhere. * Depression During and After Discharge Instructions ([place]) * Bleeding ([place]) * What to Watch for After You Have a Baby ([place]) documented in this encounterAultman Hospital02-02-2024 Miscellaneous Notes* Plan of Care - Roula Maynard RN - 04/03/2023 12:10 PM EST Problem: Optimal Supply and Comfortable Goal: Adequate feeds Description: INTERVENTIONS 1. Offer breast at least 8-12 times in first 24 hours 2. After first day, baby should feed at least 8-12 times in 24 hours. Wake baby at least every 3 hours to feed 3. Offer both breasts 4. Keep baby actively feeding at breast by using breast compressions or stimulating baby. Undressbaby for feeds Note: Evaluation of progress towards goal: See LC note. Additional Comments: * Note - Roula Maynard RN - 04/03/2023 12:10 PM EST Revisit: Pt reports pumping is going okay. [...] any questions or concerns at this time. Hasbreast pump for home. * Note - Jo Muro RN - 04/03/2023 11:30 AM EST This note was copied from a baby's [...] infection can develop from this as well. * Plan of Care - Gloria Silverman RN - 04/03/2023 9:49 AM EST Problem: Pain Goal: Patient goal is pain score less than 4, able to rest, and participant in treatment plan as appropriate Description: INTERVENTIONS: 1. Encourage patient or legal airport representative to report early pain and ask [...] per policy 9. Teach patient or legal airport representative interventions for comforting Outcome: Progressing Note: [...] at the bedside 7. Instruct patient/ patient airport representative about use of safety devices 8. Include patient/ patient airport representative in decisions related to safety Outcome: [...] hygiene technique 7. Identify and instruct patient/patient airport representative in use of appropriate isolation precautionsfor identified infection/symptoms 8. Provide and discuss with patient/patient airport representative on educational MDRO sheet 9. Encourage and monitor nutritional status daily and consult residential treatment staff if indicated 10. Implement neutropenic guidelines as needed 11. Review exposure to history of communicable disease and recent travel history on admission 12. Encourage annual influenza vaccine 13. Encourage pneumonia vaccine Outcome: Progressing Note: Evaluation of progress towards goal: No signs/symptoms of infection noted. Please see vitals in flowsheet. Problem: Knowledge Deficit Goal: Patient/patient airport representative demonstrates understanding of disease process, treatment plan,medications, and discharge instructions Description: INTERVENTIONS 1. Complete [...] of 0 - 24 or indicated by [facility] Assessment Goal: Patient should be free from fall Description: Interventions: 1. [place] to environment 2. Hourly rounds addressing the [...] non-skid footwear 11. Teach patient and patient airport representative to maintain environment for safety and [...] at franche[place]a and ambulates independently Additional Comments: * Plan of Care - Rosa Maria Laurent RN - 04/03/2023 12:20 AM EST Problem: Pain Goal: Patient goal is pain score less than 4, able to rest, and participant in treatment plan as appropriate Description: INTERVENTIONS: 1. Encourage patient or legal airport representative to report early pain and ask [...] per policy 9. Teach patient or legal airport representative interventions for comforting Outcome: Progressing Note: Evaluation of progress towards goal: Patient verbalizes tolerable level of pain at this time.Pain medications will be given as needed. Problem: [...] at the bedside 7. Instruct patient/ patient airport representative about use of safety devices 8. Include patient/ patient airport representative in decisions related to safety Outcome: [...] hygiene technique 7. Identify and instruct patient/patient airport representative in use of appropriate isolation precautionsfor identified infection/symptoms 8. Provide and discuss with patient/patient airport representative on educational MDRO sheet 9. Encourage and monitor nutritional status daily and consult residential treatment staff if indicated 10. Implement neutropenic guidelines as needed 11. Review exposure to history of communicable disease and recent travel history on admission 12. Encourage annual influenza vaccine 13. Encourage pneumonia vaccine Outcome: Progressing Note: Evaluation of progress towards goal: Patient is free from signs and symptoms of infection. Problem: Knowledge Deficit Goal: Patient/patient airport representative demonstrates understanding of disease process, treatment plan,medications, and discharge instructions Description: INTERVENTIONS 1. Complete [...] of 0 - 24 or indicated by [facility] Assessment Goal: Patient should be free from fall Description: Interventions: 1. [place] to environment 2. Hourly rounds addressing the [...] non-skid footwear 11. Teach patient and patient airport representative to maintain environment for safety and engage in all aspects of fall prevention program Outcome: Progressing Note: Evaluation of progress towards goal: Patient understands fall prevention plan. Problem: Moderate - High Risk Fall Score Description: Jules Fall Score of =/> 25 or indicated by [facility] Assessment Goal: Patient should be free from fall Description: Interventions: 1. [place] to environment 2. Hourly rounds addressing the [...] non-skid footwear 11. Teach patient and patient airport representative to maintain environment for safety and [...] (cane, walker) within reach 19. Request patient airport representative bring adaptive equipment/mobility aids from home or obtain and provide as needed 20. Consult pharmacy regarding effects of med's affecting mobility, cognition, and alternatives 21. Obtain physician order for PT if risk factors associated with mobility are present 22. Obtain physician order for OT as appropriate 23. Utilize diversional activities 24. Educate patient and patient airport representative how to maintain a safe environment during visitationtimes (notify nurse prior to leaving bedside) 25. Consider appropriateness of medical or non-medical territory manager 26. Set up voiding schedule as appropriate [...] by using breast compressions or stimulating baby. Undressbaby for feeds Outcome: Progressing Note: Evaluation of progress towards goal: Adequate feeds Additional Comments: * Discharge Planning Note - ROSEY Mckeon - 04/02/2023 1:35 PM EST DISCHARGE PLANNING NOTE Note: copied from chart Baby boy: [place] MOB: Jolene FOB: [...] family to help with NICU stay and athome. Parents stated they have everything they need for when baby is discharged, including car seatand safe sleep. Parents stated they are doing well financially and have reliable transportation, housing, and food. Discussed [facility] - parents will utilize if stays longer than expected. Will getconnected to WIC. No questions regarding insurance. FOB requesting work letter for delivery and NICU admission - provided. Parents declined further assistance at this time. SW discussed PPD with MOB.MOB stated she is feeling doing good . Hx of depression, stable. Currently connected with PCP for management and taking Zoloft. Mom feels comfortable with s/s for PPD. SW provided PPD education sheet. Further resources are available if needed. SW provided family with a book from [place] [employer] book club, a [employer] heart, education on parent groups, PPD education, and a NICU packet. SW will follow as needed. * Plan of Care - Gloria Silverman RN - 04/02/2023 9:29 AM EST Problem: Pain Goal: Patient goal is pain score less than 4, able to rest, and participant in treatment plan as appropriate Description: INTERVENTIONS: 1. Encourage patient or legal airport representative to report early pain and ask [...] per policy 9. Teach patient or legal airport representative interventions for comforting Outcome: Progressing Note: [...] at the bedside 7. Instruct patient/ patient airport representative about use of safety devices 8. Include patient/ patient airport representative in decisions related to safety Outcome: [...] hygiene technique 7. Identify and instruct patient/patient airport representative in use of appropriate isolation precautionsfor identified infection/symptoms 8. Provide and discuss with patient/patient airport representative on educational MDRO sheet 9. Encourage and monitor nutritional status daily and consult residential treatment staff if indicated 10. Implement neutropenic guidelines as needed 11. Review exposure to history of communicable disease and recent travel history on admission 12. Encourage annual influenza vaccine 13. Encourage pneumonia vaccine Outcome: Progressing Note: Evaluation of progress towards goal: No signs/symptoms of infection noted. Please see vitals in flowsheet. Problem: Knowledge Deficit Goal: Patient/patient airport representative demonstrates understanding of disease process, treatment plan,medications, and discharge instructions Description: INTERVENTIONS 1. Complete [...] be free from fall Description: Interventions: 1. [place] to environment 2. Hourly rounds addressing the [...] non-skid footwear 11. Teach patient and patient airport representative to maintain environment for safety and [...] by using breast compressions or stimulating baby. Undressbaby for feeds Outcome: Progressing Note: Evaluation of progress towards goal: pumping for in nicu Additional Comments: * Plan of Care - Liat Mccracken RN - 04/02/2023 4:19 AM EST Problem: Pain Goal: Patient goal is pain score less than 4, able to rest, and participant in treatment plan as appropriate Description: INTERVENTIONS: 1. Encourage patient or legal airport representative to report early pain and ask [...] per policy 9. Teach patient or legal airport representative interventions for comforting Outcome: Progressing Note: [...] at the bedside 7. Instruct patient/ patient airport representative about use of safety devices 8. Include patient/ patient airport representative in decisions related to safety Outcome: Progressing Note: Evaluation of progress towards goal: Pt remains injury free; precautions followed. Call lightand personal items within reach. Support person and [...] hygiene technique 7. Identify and instruct patient/patient airport representative in use of appropriate isolation precautionsfor identified infection/symptoms 8. Provide and discuss with patient/patient airport representative on educational MDRO sheet 9. Encourage and monitor nutritional status daily and consult residential treatment staff if indicated 10. Implement neutropenic guidelines as [...] to infection. Problem: Knowledge Deficit Goal: Patient/patient airport representative demonstrates understanding of disease process, treatment plan,medications, and discharge instructions Description: INTERVENTIONS 1. Complete [...] of 0 - 24 or indicated by [facility] Assessment Goal: Patient should be free from fall Description: Interventions: 1. [place] to environment 2. Hourly rounds addressing the [...] non-skid footwear 11. Teach patient and patient airport representative to maintain environment for safety and engage in all aspects of fall prevention program Outcome: Progressing Note: Evaluation of progress towards goal: Pt remains injury free; precautions followed. Call lightand personal items within reach. Support person and at bedside. Patient aware of own limitations. Problem: Moderate - High Risk Fall Score Description: Jules Fall Score of =/> 25 or indicated by [facility] Assessment Goal: Patient should be free from fall Description: Interventions: 1. [place] to environment 2. Hourly rounds addressing the [...] non-skid footwear 11. Teach patient and patient airport representative to maintain environment for safety and [...] (cane, walker) within reach 19. Request patient airport representative bring adaptive equipment/mobility aids from home or obtain and provide as needed 20. Consult pharmacy regarding effects of med's affecting mobility, cognition, and alternatives 21. Obtain physician order for PT if risk factors associated with mobility are present 22. Obtain physician order for OT as appropriate 23. Utilize diversional activities 24. Educate patient and patient airport representative how to maintain a safe environment during visitationtimes (notify nurse prior to leaving bedside) 25. Consider appropriateness of medical or non-medical territory manager 26. Set up voiding schedule as appropriate (every 2 hours) Outcome: Progressing Note: Evaluation of progress towards goal: Pt remains injury free; precautions followed. Call lightand personal items within reach. Support person and [...] by using breast compressions or stimulating baby. Undressbaby for feeds Outcome: Progressing Note: Evaluation of progress towards goal: Goal complete, supplementing due to low blood sugars on Additional Comments: * L&D Delivery Note - Kesha Jocelyn - 04/01/2023 11:02 PM EST Delivery Record Patient Observations (Last 24 hours) None Patient Observations (Last 24 hours) None Burrows, Pending [[id number]] Events of Labor labor?: No steroids?: None Cervical ripening date/time: Antibiotics received during labor?: No Rupture date/time: 04/01/23 1233 Rupture type: Artificial, Intact Fluid color: Clear Fluid odor: No Induction: Oxytocin, AROM Labor complications: None Labor Event Times Labor onset date/time: 04/01/23 0530 Dilation complete date/time: 04/01/232203 Start pushing date/time: 04/01/20232214 Anesthesia Method: Epidural Anesthesia provided by: Stephen Forte CRNA Attending: Yaima Mc MD Assisted Delivery Forceps attempted?: No Vacuum extractor attempted?: No Document Additional Attempt Document Additional Attempt Shoulder Dystocia Shoulder dystocial present?: No Second Maneuver Third Maneuver Fourth Maneuver Fifth Maneuver Sixth Maneuver Seventh Maneuver Eighth Maneuver \Ninth Maneuver Presentation Presentation: Vertex Position: Right Occiput Anterior Anna Information Delivery date/time: 04/01/232217 Delivery type: Vaginal, Spontaneous details: Trial of labor?: Yes Delivery Providers Delivering clinician: AURELIA Arzola Provider Role Anat Leblanc RN Delivery Nurse Kesha Banks Nurse Barker Peeler Student Nurse Cord Information Vessels: 3 vessels [...] filed Skin to Skin No data filed Anna Measurements Weight: 3.32 kg Lacerations/EBL Episiotomy: None [...] by FOB. Cord segment and cord blood obtained.Placenta delivered via [place] presentation. Fundus boggy and [...] I agree with the assessment and plan. * Plan of Care - Anat Leblanc RN - 04/01/2023 7:15 PM EST Problem: Pain Goal: Patient goal is pain score less than 4, able to rest, and participant in treatment plan as appropriate Description: INTERVENTIONS: 1. Encourage patient or legal airport representative to report early pain and ask [...] per policy 9. Teach patient or legal airport representative interventions for comforting Outcome: Progressing Note: [...] at the bedside 7. Instruct patient/ patient airport representative about use of safety devices 8. Include patient/ patient airport representative in decisions related to safety Outcome: [...] hygiene technique 7. Identify and instruct patient/patient airport representative in use of appropriate isolation precautionsfor identified infection/symptoms 8. Provide and discuss with patient/patient airport representative on educational MDRO sheet 9. Encourage and monitor nutritional status daily and consult residential treatment staff if indicated 10. Implement neutropenic guidelines as needed 11. Review exposure to history of communicable disease and recent travel history on admission 12. Encourage annual influenza vaccine 13. Encourage pneumonia vaccine Outcome: Progressing Note: Evaluation of progress towards goal: Patient is free from signs and symptoms of infection at this time. Problem: Knowledge Deficit Goal: Patient/patient airport representative demonstrates understanding of disease process, treatment plan,medications, and discharge instructions Description: INTERVENTIONS 1. Complete [...] be free from fall Description: Interventions: 1. [place] to environment 2. Hourly rounds addressing the [...] non-skid footwear 11. Teach patient and patient airport representative to maintain environment for safety and [...] be free from fall Description: Interventions: 1. [place] to environment 2. Hourly rounds addressing the [...] non-skid footwear 11. Teach patient and patient airport representative to maintain environment for safety and [...] (cane, walker) within reach 19. Request patient airport representative bring adaptive equipment/mobility aids from home or obtain and provide as needed 20. Consult pharmacy regarding effects of med's affecting mobility, cognition, and alternatives 21. Obtain physician order for PT if risk factors associated with mobility are present 22. Obtain physician order for OT as appropriate 23. Utilize diversional activities 24. Educate patient and patient airport representative how to maintain a safe environment during visitationtimes (notify nurse prior to leaving bedside) 25. Consider appropriateness of medical or non-medical territory manager 26. Set up voiding schedule as appropriate (every 2 hours) Outcome: Progressing Note: Evaluation of progress towards goal: Patient has no falls at this time. Additional Comments: * Plan of Care - Heather Rawls RN - 04/01/2023 7:37 AM EST Problem: Pain Goal: Patient goal is pain score less than 4, able to rest, and participant in treatment plan as appropriate Description: INTERVENTIONS: 1. Encourage patient or legal airport representative to report early pain and ask [...] per policy 9. Teach patient or legal airport representative interventions for comforting Outcome: Progressing Note: Evaluation of progress towards goal: Patient verbalizes tolerable level of pain at this time.Pain medications will be given as needed. Problem: [...] at the bedside 7. Instruct patient/ patient airport representative about use of safety devices 8. Include patient/ patient airport representative in decisions related to safety Outcome: [...] hygiene technique 7. Identify and instruct patient/patient airport representative in use of appropriate isolation precautionsfor identified infection/symptoms 8. Provide and discuss with patient/patient airport representative on educational MDRO sheet 9. Encourage and monitor nutritional status daily and consult residential treatment staff if indicated 10. Implement neutropenic guidelines as needed 11. Review exposure to history of communicable disease and recent travel history on admission 12. Encourage annual influenza vaccine 13. Encourage pneumonia vaccine Outcome: Progressing Note: Evaluation of progress towards goal: Patient is free from signs and symptoms of infection. Problem: Knowledge Deficit Goal: Patient/patient airport representative demonstrates understanding of disease process, treatment plan,medications, and discharge instructions Description: INTERVENTIONS 1. Complete [...] be free from fall Description: Interventions: 1. [place] to environment 2. Hourly rounds addressing the [...] non-skid footwear 11. Teach patient and patient airport representative to maintain environment for safety and [...] be free from fall Description: Interventions: 1. [place] to environment 2. Hourly rounds addressing the [...] non-skid footwear 11. Teach patient and patient airport representative to maintain environment for safety and [...] (cane, walker) within reach 19. Request patient airport representative bring adaptive equipment/mobility aids from home or obtain and provide as needed 20. Consult pharmacy regarding effects of med's affecting mobility, cognition, and alternatives 21. Obtain physician order for PT if risk factors associated with mobility are present 22. Obtain physician order for OT as appropriate 23. Utilize diversional activities 24. Educate patient and patient airport representative how to maintain a safe environment during visitationtimes (notify nurse prior to leaving bedside) 25. Consider appropriateness of medical or non-medical territory manager 26. Set up voiding schedule as appropriate (every 2 hours) Outcome: Progressing Note: Evaluation of progress towards goal: .Patient understands fall prevention plan. Additional Comments: * Plan of Care - Isabell Byrne RN - 03/31/2023 11:14 PM EST Problem: Pain Goal: Patient goal is pain score less than 4, able to rest, and participant in treatment plan as appropriate Description: INTERVENTIONS: 1. Encourage patient or legal airport representative to report early pain and ask [...] per policy 9. Teach patient or legal airport representative interventions for comforting Outcome: Progressing Note: Evaluation of progress towards goal: Patient verbalizes tolerable level of pain at this time.Pain medications will be given as needed. Problem: [...] at the bedside 7. Instruct patient/ patient airport representative about use of safety devices 8. Include patient/ patient airport representative in decisions related to safety Outcome: [...] hygiene technique 7. Identify and instruct patient/patient airport representative in use of appropriate isolation precautionsfor identified infection/symptoms 8. Provide and discuss with patient/patient airport representative on educational MDRO sheet 9. Encourage and monitor nutritional status daily and consult residential treatment staff if indicated 10. Implement neutropenic guidelines as needed 11. Review exposure to history of communicable disease and recent travel history on admission 12. Encourage annual influenza vaccine 13. Encourage pneumonia vaccine Outcome: Progressing Note: Evaluation of progress towards goal: Patient is free from signs and symptoms of infection. Problem: Knowledge Deficit Goal: Patient/patient airport representative demonstrates understanding of disease process, treatment plan,medications, and discharge instructions Description: INTERVENTIONS 1. Complete [...] of 0 - 24 or indicated by [facility] Assessment Goal: Patient should be free from fall Description: Interventions: 1. [place] to environment 2. Hourly rounds addressing the [...] non-skid footwear 11. Teach patient and patient airport representative to maintain environment for safety and [...] yet ruptured Additional Comments: [facility]* Note - Roula Maynard RN - 04/03/2023 12:10 PM EST Revisit: Pt reports pumping is going okay. [...] any questions or concerns at this time. Hasbreast pump for home. [facility] [id number] Plan of care note* Plan of Care - Roula Maynard RN - 04/03/2023 12:10 PM EST Problem: Optimal Supply and Comfortable Goal: Adequate feeds Description: INTERVENTIONS 1. Offer breast at least 8-12 times in first 24 hours 2. After first day, baby should feed at least 8-12 times in 24 hours. Wake baby at least every 3 hours to feed 3. Offer both breasts 4. Keep baby actively feeding at breast by using breast compressions or stimulating baby. Undressbaby for feeds Note: Evaluation of progress towards goal: See LC note. Additional Comments: [facility]02-02-2024 Obstetrics Note* Note - Jo Muro RN - 04/03/2023 11:30 AM EST This note was copied from a baby's chart. Met with mom at infant's bedside. States that pumping is going very [...] infection can develop from this as well. [facility] course Narrative* AURELIA Martin - 04/03/2023 10:14 AM EST Obstetrical Discharge Form Care Provider: SHANA GORMAN [...] AURELIA Martin 04/03/23 1019 [facility] History of Present illness Narrative* Fadumo Stevenson, STAFF RN-CNM - 04/03/2023 9:58 AM EST S: Jolene Burrows is a 22 y.o. s/p PPD#2. Her delivery was uncomplicated. She is doing well today. Baby still in NICU, waiting to hear an update on estimated length of stay.A&O, Ambulating without difficulty, denies dizziness. Eating and [...] mood check AURELIA Martin APRN-CNM 04/03/23 1009 * AURELIA Redman - 04/02/2023 8:36 AM EST PP day : 1 Pt doing well. [...] Care. Discharge Home tomorrow AURELIA Redman 04/02/232223 * Kesha Banks - 04/01/2023 7:00 PM EST S: Pt is getting more comfortable with [...] Cat. 2 tracing, overall reassuring VE: Deferred Progressive Assembler And Fitter present. A: 22 y.o., at 39w1d weeks [...] Migraines Inappropriate sinus tachycardia Elevated glucose tolerance rn testing of spinal muscular atrophy , supervision of [...] I agree with the assessment and plan. * Kesha Banks - 04/01/2023 4:36 PM EST S: Pt feeling more uncomfortable with contractions [...] MVU: 152 Cat. 1 tracing VE: /0 Progressive Assembler And Fitter present. A: 22 y.o., at 39w1d weeks [...] Migraines Inappropriate sinus tachycardia Elevated glucose tolerance rn testing of spinal muscular atrophy , supervision of [...] I agree with the assessment and plan. * Kesha Banks - 04/01/2023 12:44 PM EST AROM: Procedure explained to patient and agrees [...] Migraines Inappropriate sinus tachycardia Elevated glucose tolerance rn testing of spinal muscular atrophy , supervision of [...] I agree with the assessment and plan. * Kesha Banks - 04/01/2023 10:00 AM EST S: Pt comfortable at this time, states [...] Migraines Inappropriate sinus tachycardia Elevated glucose tolerance rn testing of spinal muscular atrophy , supervision of [...] I agree with the assessment and plan. * AURELIA Carrillo - 04/01/2023 5:47 AM EST S: Pt comfortable; family at bedside O: [...] plan. Expect . AURELIA Carrillo 04/01/23 0552 * AURELIA Carrillo - 04/01/2023 2:36 AM EST S: Pt comfortable with CTX; family at [...] AURELIA Carrillo 04/01/23 0238 [facility] Plan of care note * Plan of Care - Gloria Silverman RN - 04/03/2023 9:49 AM EST Problem: Pain Goal: Patient goal is pain score less than 4, able to rest, and participant in treatment plan as appropriate Description: INTERVENTIONS: 1. Encourage patient or legal airport representative to report early pain and ask [...] per policy 9. Teach patient or legal airport representative interventions for comforting Outcome: Progressing Note: [...] at the bedside 7. Instruct patient/ patient airport representative about use of safety devices 8. Include patient/ patient airport representative in decisions related to safety Outcome: [...] hygiene technique 7. Identify and instruct patient/patient airport representative in use of appropriate isolation precautionsfor identified infection/symptoms 8. Provide and discuss with patient/patient airport representative on educational MDRO sheet 9. Encourage and monitor nutritional status daily and consult residential treatment staff if indicated 10. Implement neutropenic guidelines as needed 11. Review exposure to history of communicable disease and recent travel history on admission 12. Encourage annual influenza vaccine 13. Encourage pneumonia vaccine Outcome: Progressing Note: Evaluation of progress towards goal: No signs/symptoms of infection noted. Please see vitals in flowsheet. Problem: Knowledge Deficit Goal: Patient/patient airport representative demonstrates understanding of disease process, treatment plan,medications, and discharge instructions Description: INTERVENTIONS 1. Complete [...] of 0 - 24 or indicated by [facility] Assessment Goal: Patient should be free from fall Description: Interventions: 1. [place] to environment 2. Hourly rounds addressing the [...] non-skid footwear 11. Teach patient and patient airport representative to maintain environment for safety and [...] at franchesca and ambulates independently Additional Comments: [facility] Plan of care note* Plan of Care - Rosa Maria Laurent RN - 04/03/2023 12:20 AM EST Problem: Pain Goal: Patient goal is pain score less than 4, able to rest, and participant in treatment plan as appropriate Description: INTERVENTIONS: 1. Encourage patient or legal airport representative to report early pain and ask [...] per policy 9. Teach patient or legal airport representative interventions for comforting Outcome: Progressing Note: Evaluation of progress towards goal: Patient verbalizes tolerable level of pain at this time.Pain medications will be given as needed. Problem: [...] at the bedside 7. Instruct patient/ patient airport representative about use of safety devices 8. Include patient/ patient airport representative in decisions related to safety Outcome: [...] hygiene technique 7. Identify and instruct patient/patient airport representative in use of appropriate isolation precautionsfor identified infection/symptoms 8. Provide and discuss with patient/patient airport representative on educational MDRO sheet 9. Encourage and monitor nutritional status daily and consult residential treatment staff if indicated 10. Implement neutropenic guidelines as needed 11. Review exposure to history of communicable disease and recent travel history on admission 12. Encourage annual influenza vaccine 13. Encourage pneumonia vaccine Outcome: Progressing Note: Evaluation of progress towards goal: Patient is free from signs and symptoms of infection. Problem: Knowledge Deficit Goal: Patient/patient airport representative demonstrates understanding of disease process, treatment plan,medications, and discharge instructions Description: INTERVENTIONS 1. Complete [...] of 0 - 24 or indicated by [facility] Assessment Goal: Patient should be free from fall Description: Interventions: 1. [place] to environment 2. Hourly rounds addressing the [...] non-skid footwear 11. Teach patient and patient airport representative to maintain environment for safety and engage in all aspects of fall prevention program Outcome: Progressing Note: Evaluation of progress towards goal: Patient understands fall prevention plan. Problem: Moderate - High Risk Fall Score Description: Jules Fall Score of =/> 25 or indicated by [facility] Assessment Goal: Patient should be free from fall Description: Interventions: 1. [place] to environment 2. Hourly rounds addressing the [...] non-skid footwear 11. Teach patient and patient airport representative to maintain environment for safety and [...] (cane, walker) within reach 19. Request patient airport representative bring adaptive equipment/mobility aids from home or obtain and provide as needed 20. Consult pharmacy regarding effects of med's affecting mobility, cognition, and alternatives 21. Obtain physician order for PT if risk factors associated with mobility are present 22. Obtain physician order for OT as appropriate 23. Utilize diversional activities 24. Educate patient and patient airport representative how to maintain a safe environment during visitationtimes (notify nurse prior to leaving bedside) 25. Consider appropriateness of medical or non-medical territory manager 26. Set up voiding schedule as appropriate [...] by using breast compressions or stimulating baby. Undressbaby for feeds Outcome: Progressing Note: Evaluation of progress towards goal: Adequate feeds Additional Comments: [employer] [id number] Progress note* Discharge Planning Note - ROSEY Mckeon - 04/02/2023 1:35 PM EST DISCHARGE PLANNING NOTE Note: copied from chart Baby boy: Flaquito MOB: Jolene FOB: [...] family to help with NICU stay and athome. Parents stated they have everything they need for when baby is discharged, including car seatand safe sleep. Parents stated they are doing well financially and have reliable transportation, housing, and food. Discussed [facility] - parents will utilize if stays longer than expected. Will [facility]. No questions regarding insurance. FOB requesting work letter for delivery and NICU admission - provided. Parents declined further assistance at this time. SW discussed PPD with MOB.MOB stated she is feeling doing good . Hx of depression, stable. Currently connected with PCP for management and taking Zoloft. Mom feels comfortable with s/s for PPD. SW provided PPD education sheet. Further resources are available if needed. SW provided family with a book from [employer] book [employer], a developmental heart, education on parent groups, PPD education, and a NICU packet. SW will follow as needed. [facility] [id number] Plan of care note* Plan of Care - Gloria Silverman RN - 04/02/2023 9:29 AM EST Problem: Pain Goal: Patient goal is pain score less than 4, able to rest, and participant in treatment plan as appropriate Description: INTERVENTIONS: 1. Encourage patient or legal airport representative to report early pain and ask [...] per policy 9. Teach patient or legal airport representative interventions for comforting Outcome: Progressing Note: [...] at the bedside 7. Instruct patient/ patient airport representative about use of safety devices 8. Include patient/ patient airport representative in decisions related to safety Outcome: [...] hygiene technique 7. Identify and instruct patient/patient airport representative in use of appropriate isolation precautionsfor identified infection/symptoms 8. Provide and discuss with patient/patient airport representative on educational MDRO sheet 9. Encourage and monitor nutritional status daily and consult residential treatment staff if indicated 10. Implement neutropenic guidelines as needed 11. Review exposure to history of communicable disease and recent travel history on admission 12. Encourage annual influenza vaccine 13. Encourage pneumonia vaccine Outcome: Progressing Note: Evaluation of progress towards goal: No signs/symptoms of infection noted. Please see vitals in flowsheet. Problem: Knowledge Deficit Goal: Patient/patient airport representative demonstrates understanding of disease process, treatment plan,medications, and discharge instructions Description: INTERVENTIONS 1. Complete [...] be free from fall Description: Interventions: 1. [place] to environment 2. Hourly rounds addressing the [...] non-skid footwear 11. Teach patient and patient airport representative to maintain environment for safety and [...] by using breast compressions or stimulating baby. Undressbaby for feeds Outcome: Progressing Note: Evaluation of progress towards goal: pumping for in nicu Additional Comments: [facility]02-01-2024 Plan of care note* Plan of Care - Liat Mccracken RN - 04/02/2023 4:19 AM EST Problem: Pain Goal: Patient goal is pain score less than 4, able to rest, and participant in treatment plan as appropriate Description: INTERVENTIONS: 1. Encourage patient or legal airport representative to report early pain and ask [...] per policy 9. Teach patient or legal airport representative interventions for comforting Outcome: Progressing Note: [...] at the bedside 7. Instruct patient/ patient airport representative about use of safety devices 8. Include patient/ patient airport representative in decisions related to safety Outcome: Progressing Note: Evaluation of progress towards goal: Pt remains injury free; precautions followed. Call lightand personal items within reach. Support person and [...] hygiene technique 7. Identify and instruct patient/patient airport representative in use of appropriate isolation precautionsfor identified infection/symptoms 8. Provide and discuss with patient/patient airport representative on educational MDRO sheet 9. Encourage and monitor nutritional status daily and consult residential treatment staff if indicated 10. Implement neutropenic guidelines as [...] to infection. Problem: Knowledge Deficit Goal: Patient/patient airport representative demonstrates understanding of disease process, treatment plan,medications, and discharge instructions Description: INTERVENTIONS 1. Complete [...] of 0 - 24 or indicated by [facility] Assessment Goal: Patient should be free from fall Description: Interventions: 1. [place] to environment 2. Hourly rounds addressing the [...] non-skid footwear 11. Teach patient and patient airport representative to maintain environment for safety and engage in all aspects of fall prevention program Outcome: Progressing Note: Evaluation of progress towards goal: Pt remains injury free; precautions followed. Call lightand personal items within reach. Support person and at bedside. Patient aware of own limitations. Problem: Moderate - High Risk Fall Score Description: Jules Fall Score of =/> 25 or indicated by [facility] Assessment Goal: Patient should be free from fall Description: Interventions: 1. [place] to environment 2. Hourly rounds addressing the [...] non-skid footwear 11. Teach patient and patient airport representative to maintain environment for safety and [...] (cane, walker) within reach 19. Request patient airport representative bring adaptive equipment/mobility aids from home or obtain and provide as needed 20. Consult pharmacy regarding effects of med's affecting mobility, cognition, and alternatives 21. Obtain physician order for PT if risk factors associated with mobility are present 22. Obtain physician order for OT as appropriate 23. Utilize diversional activities 24. Educate patient and patient airport representative how to maintain a safe environment during visitationtimes (notify nurse prior to leaving bedside) 25. Consider appropriateness of medical or non-medical territory manager 26. Set up voiding schedule as appropriate (every 2 hours) Outcome: Progressing Note: Evaluation of progress towards goal: Pt remains injury free; precautions followed. Call lightand personal items within reach. Support person and [...] by using breast compressions or stimulating baby. Undressbaby for feeds Outcome: Progressing Note: Evaluation of progress towards goal: Goal complete, supplementing due to low blood sugars on Additional Comments[facility] [id number] Labor and delivery summary note* L&D Delivery Note - Kesha Banks - 04/01/2023 11:02 PM EST Delivery Record Patient Observations (Last 24 hours) None Patient Observations (Last 24 hours) None Burrows, Pending [[id number]] Events of Labor labor?: No steroids?: None Cervical ripening date/time: Antibiotics received during labor?: No Rupture date/time: 04/01/23 1233 Rupture type: Artificial, Intact Fluid color: Clear Fluid odor: No Induction: Oxytocin, AROM Labor complications: None Labor Event Times Labor onset date/time: 04/01/23 0530 Dilation complete date/time: 04/01/232203 Start pushing date/time: 04/01/20232214 Anesthesia Method: Epidural Anesthesia provided by: Stephen Forte [employer] Attending: Yaima Mc MD Assisted Delivery Forceps attempted?: No Vacuum extractor attempted?: No Document Additional Attempt Document Additional Attempt Shoulder Dystocia Shoulder dystocial present?: No Second Maneuver Third Maneuver Fourth Maneuver Fifth Maneuver Sixth Maneuver Seventh Maneuver Eighth Maneuver \Ninth Maneuver Presentation Presentation: Vertex Position: Right Occiput Anterior Information Delivery date/time: 04/01/232217 Delivery type: Vaginal, Spontaneous details: Trial of labor?: Yes Delivery Providers Delivering clinician: AURELIA Arzola Provider Role Anat Leblanc RN Delivery Nurse Kesha Banks Nurse Barker Peeler Student Anna Nurse Cord Information Vessels: 3 vessels Complications: [...] by FOB. Cord segment and cord blood obtained.Placenta delivered via [place] presentation. Fundus boggy and [...] I agree with the assessment and plan. [facility]01-31-2024 Plan of care note* Plan of Care - Anat Leblanc RN - 04/01/2023 7:15 PM EST Problem: Pain Goal: Patient goal is pain score less than 4, able to rest, and participant in treatment plan as appropriate Description: INTERVENTIONS: 1. Encourage patient or legal airport representative to report early pain and ask [...] per policy 9. Teach patient or legal airport representative interventions for comforting Outcome: Progressing Note: [...] at the bedside 7. Instruct patient/ patient airport representative about use of safety devices 8. Include patient/ patient airport representative in decisions related to safety Outcome: [...] hygiene technique 7. Identify and instruct patient/patient airport representative in use of appropriate isolation precautionsfor identified infection/symptoms 8. Provide and discuss with patient/patient airport representative on educational MDRO sheet 9. Encourage and monitor nutritional status daily and consult residential treatment staff if indicated 10. Implement neutropenic guidelines as needed 11. Review exposure to history of communicable disease and recent travel history on admission 12. Encourage annual influenza vaccine 13. Encourage pneumonia vaccine Outcome: Progressing Note: Evaluation of progress towards goal: Patient is free from signs and symptoms of infection at this time. Problem: Knowledge Deficit Goal: Patient/patient airport representative demonstrates understanding of disease process, treatment plan,medications, and discharge instructions Description: INTERVENTIONS 1. Complete [...] be free from fall Description: Interventions: 1. [place] to environment 2. Hourly rounds addressing the [...] non-skid footwear 11. Teach patient and patient airport representative to maintain environment for safety and [...] be free from fall Description: Interventions: 1. [place] to environment 2. Hourly rounds addressing the [...] non-skid footwear 11. Teach patient and patient airport representative to maintain environment for safety and [...] (cane, walker) within reach 19. Request patient airport representative bring adaptive equipment/mobility aids from home or obtain and provide as needed 20. Consult pharmacy regarding effects of med's affecting mobility, cognition, and alternatives 21. Obtain physician order for PT if risk factors associated with mobility are present 22. Obtain physician order for OT as appropriate 23. Utilize diversional activities 24. Educate patient and patient airport representative how to maintain a safe environment during visitationtimes (notify nurse prior to leaving bedside) 25. Consider appropriateness of medical or non-medical territory manager 26. Set up voiding schedule as appropriate (every 2 hours) Outcome: Progressing Note: Evaluation of progress towards goal: Patient has no falls at this time. Additional Comments: [employer] [id number] Plan of care note* Plan of Care - Heather Rawls RN - 04/01/2023 7:37 AM EST Problem: Pain Goal: Patient goal is pain score less than 4, able to rest, and participant in treatment plan as appropriate Description: INTERVENTIONS: 1. Encourage patient or legal airport representative to report early pain and ask [...] per policy 9. Teach patient or legal airport representative interventions for comforting Outcome: Progressing Note: Evaluation of progress towards goal: Patient verbalizes tolerable level of pain at this time.Pain medications will be given as needed. Problem: [...] at the bedside 7. Instruct patient/ patient airport representative about use of safety devices 8. Include patient/ patient airport representative in decisions related to safety Outcome: [...] hygiene technique 7. Identify and instruct patient/patient airport representative in use of appropriate isolation precautionsfor identified infection/symptoms 8. Provide and discuss with patient/patient airport representative on educational MDRO sheet 9. Encourage and monitor nutritional status daily and consult residential treatment staff if indicated 10. Implement neutropenic guidelines as needed 11. Review exposure to history of communicable disease and recent travel history on admission 12. Encourage annual influenza vaccine 13. Encourage pneumonia vaccine Outcome: Progressing Note: Evaluation of progress towards goal: Patient is free from signs and symptoms of infection. Problem: Knowledge Deficit Goal: Patient/patient airport representative demonstrates understanding of disease process, treatment plan,medications, and discharge instructions Description: INTERVENTIONS 1. Complete [...] be free from fall Description: Interventions: 1. [place] to environment 2. Hourly rounds addressing the [...] non-skid footwear 11. Teach patient and patient airport representative to maintain environment for safety and [...] be free from fall Description: Interventions: 1. [place] to environment 2. Hourly rounds addressing the [...] non-skid footwear 11. Teach patient and patient airport representative to maintain environment for safety and [...] (cane, walker) within reach 19. Request patient airport representative bring adaptive equipment/mobility aids from home or obtain and provide as needed 20. Consult pharmacy regarding effects of med's affecting mobility, cognition, and alternatives 21. Obtain physician order for PT if risk factors associated with mobility are present 22. Obtain physician order for OT as appropriate 23. Utilize diversional activities 24. Educate patient and patient airport representative how to maintain a safe environment during visitationtimes (notify nurse prior to leaving bedside) 25. Consider appropriateness of medical or non-medical territory manager 26. Set up voiding schedule as appropriate (every 2 hours) Outcome: Progressing Note: Evaluation of progress towards goal: .Patient understands fall prevention plan. Additional Comments: [facility]01-30-2024 Plan of care note* Plan of Care - Isabell Byrne RN - 03/31/2023 11:14 PM EST Problem: Pain Goal: Patient goal is pain score less than 4, able to rest, and participant in treatment plan as appropriate Description: INTERVENTIONS: 1. Encourage patient or legal airport representative to report early pain and ask [...] per policy 9. Teach patient or legal airport representative interventions for comforting Outcome: Progressing Note: Evaluation of progress towards goal: Patient verbalizes tolerable level of pain at this time.Pain medications will be given as needed. Problem: [...] at the bedside 7. Instruct patient/ patient airport representative about use of safety devices 8. Include patient/ patient airport representative in decisions related to safety Outcome: [...] hygiene technique 7. Identify and instruct patient/patient airport representative in use of appropriate isolation precautionsfor identified infection/symptoms 8. Provide and discuss with patient/patient airport representative on educational MDRO sheet 9. Encourage and monitor nutritional status daily and consult residential treatment staff if indicated 10. Implement neutropenic guidelines as needed 11. Review exposure to history of communicable disease and recent travel history on admission 12. Encourage annual influenza vaccine 13. Encourage pneumonia vaccine Outcome: Progressing Note: Evaluation of progress towards goal: Patient is free from signs and symptoms of infection. Problem: Knowledge Deficit Goal: Patient/patient airport representative demonstrates understanding of disease process, treatment plan,medications, and discharge instructions Description: INTERVENTIONS 1. Complete [...] of 0 - 24 or indicated by [facility] Assessment Goal: Patient should be free from fall Description: Interventions: 1. [place] to environment 2. Hourly rounds addressing the [...] non-skid footwear 11. Teach patient and patient airport representative to maintain environment for safety and [...] limits pt not yet ruptured Additional Comments: [facility] [employer] [id number] History and physical note* Marilynn Jacques, STAFF RN-SHERIF - 03/31/2023 9:33 PM EST Images from the original note were not included. Jolene Burrows is a 22 y.o.. at 39w0d with Estimated Date of Delivery: 04/07/23 who presents with Chief Complaint Patient presents with MIOL For polyhydramnios. Care by: CNM's [facility] HPI: MIOL for poly Pt reports [...] itching. 30 capsule 0 Past Week vit 38-puyr-fdxve-dha 18-1-350 mg capsule Take 1 tablet by [...] oral Q4H PRN Marilynn M Ashby Bojanic, STAFF RN-CNM carboprost (HEMABATE) injection 250 mcg 250 mcg intramuscular Once PRN Marilynn M Ashby Bojanic, STAFF RN-CNM lactated ringers bolus 500 mL intravenous PRN Marilynn M Ashby Bojanic, STAFF RN-CNM lactated ringers bolus 500 mL intravenous Once Marilynn M Ashby Bojanic, STAFF RN-CNM lactated ringers infusion 999 mL/hr intravenous Continuous PRN Marilynn M Ashby Bojanic, STAFF RN-CNM lactated ringers infusion 125 mL/hr intravenous Continuous Marilynn M Ashby Bojanic, STAFF RN-CNM 125 mL/hr at 03/31/232130 125 mL/hr at 03/31/232130 lactated ringers infusion 250 mL/hr intravenous Continuous PRN Marilynn M Ashby Bojanic, STAFF RN-CNM oxytocin (PITOCIN) infusion 30 units/500 mL in lactated ringers (0.06 units/mL premix) 42 bismark-units/min intravenous Continuous PRN Marilynn M Ashby Bojanic, STAFF RN-CNM And lactated ringers infusion 83 mL/hr intravenous Continuous PRN Marilynn M Ashby Bojanic, STAFF RN-CNM lactated ringers infusion 50 mL/hr intravenous Continuous Marilynn M Ashby Bojanic, STAFF RN-CNM lidocaine PF (XYLOCAINE) 10 mg/mL (1 %) injection 100 mg 10 mL infiltration PRN Marilynn M Ashby Bojanic, STAFF RN-CNM methylergonovine (METHERGINE) injection 200 mcg 200 mcg intramuscular Once PRN Marilynn M Ashby Bojanic, STAFF RN-CNM miSOPROStoL (CYTOTEC) tablet 1,000 mcg 1,000 mcg rectal Once PRN Marilynn M Ashby Bojanic, STAFF RN-CNM ondansetron (PF) (ZOFRAN) injection 4 mg 4 mg intravenous Q4H PRN Marilynn M Ashby Bojanic, STAFF RN-CNM oxytocin (PITOCIN) bolus from bag solution 10 Units 10 Units intravenous Once PRN Marilynn M Ashby Bojanic, STAFF RN-CNM oxytocin (PITOCIN) infusion 30 units/500 mL in lactated ringers (0.06 units/mL premix) 1-20 bismark-units/min intravenous Titrated Marilynn M Ashby Bojanic, STAFF RN- CNM 1 mL/hr at 03/31/232133 1 bismark-units/min at 03/31/232133 oxytocin (PITOCIN) injection 10 Units 10 Units intramuscular Once PRN Marilynn M Ashby Bojanic, STAFF RN-CNM tranexamic acid (CYKLOKAPRON) injection 1,000 mg 1,000 mg intravenous Q30 Min PRN Marilynn M Ashby Bojanic, STAFF RN-CNM ALLERGIES No Known Allergies FAMILY HX Family [...] Results Component Value Date GLUF 76 01/08/2023 [id number] 143 01/08/2023 [id number] 134 01/08/2023 [id number] 101 (H) 01/08/2023 PHYSICAL EXAM: Consitutional: well-appearing; [...] carbs AURELIA Carrillo 03/31/232140 AURELIA Carrillo 03/31/232142 [facility]01-30-2024 History and physical note* AURELIA Carrillo - 03/31/2023 9:33 PM EST Images from the original note were not included. Jolene Burrows is a 22 y.o.. at 39w0d with Estimated Date of Delivery: 04/07/23 who presents with Chief Complaint Patient presents with MIOL For polyhydramnios. Care by: CNM's [facility] HPI: MIOL for poly Pt reports [...] itching. 30 capsule 0 Past Week vit 32-soxm-xxugd-dha 18-1-350 mg capsule Take 1 tablet by [...] oral Q4H PRN Marilynn M Ashby Bojanic, STAFF RN-CNM carboprost (HEMABATE) injection 250 mcg 250 mcg intramuscular Once PRN Marilynn M Ashby Bojanic, STAFF RN-CNM lactated ringers bolus 500 mL intravenous PRN Marilynn M Ashby Bojanic, STAFF RN-CNM lactated ringers bolus 500 mL intravenous Once Marilynn M Ashby Bojanic, STAFF RN-CNM lactated ringers infusion 999 mL/hr intravenous Continuous PRN Marilynn M Ashby Bojanic, STAFF RN-CNM lactated ringers infusion 125 mL/hr intravenous Continuous Marilynn M Ashby Bojanic, STAFF RN-CNM 125 mL/hr at 03/31/232130 125 mL/hr at 03/31/232130 lactated ringers infusion 250 mL/hr intravenous Continuous PRN Marilynn M Ashby Bojanic, STAFF RN-CNM oxytocin (PITOCIN) infusion 30 units/500 mL in lactated ringers (0.06 units/mL premix) 42 bismark-units/min intravenous Continuous PRN Marilynn M Ashby Bojanic, STAFF RN-CNM And lactated ringers infusion 83 mL/hr intravenous Continuous PRN Marilynn M Ashby Bojanic, STAFF RN-CNM lactated ringers infusion 50 mL/hr intravenous Continuous Marilynn M Ashby Bojanic, STAFF RN-CNM lidocaine PF (XYLOCAINE) 10 mg/mL (1 %) injection 100 mg 10 mL infiltration PRN Marilynn M Ashby Bojanic, STAFF RN-CNM methylergonovine (METHERGINE) injection 200 mcg 200 mcg intramuscular Once PRN Marilynn M Ashby Bojanic, STAFF RN-CNM miSOPROStoL (CYTOTEC) tablet 1,000 mcg 1,000 mcg rectal Once PRN Marilynn M Ashby Bojanic, STAFF RN-CNM ondansetron (PF) (ZOFRAN) injection 4 mg 4 mg intravenous Q4H PRN Marilynn M Ashby Bojanic, STAFF RN-CNM oxytocin (PITOCIN) bolus from bag solution 10 Units 10 Units intravenous Once PRN Marilynn M Ashby Bojanic, STAFF RN-CNM oxytocin (PITOCIN) infusion 30 units/500 mL in lactated ringers (0.06 units/mL premix) 1-20 bismark-units/min intravenous Titrated Marilynn M Ashby Bojanic, STAFF RN- CNM 1 mL/hr at 03/31/232133 1 bismark-units/min at 03/31/232133 oxytocin (PITOCIN) injection 10 Units 10 Units intramuscular Once PRN Marilynn M Ashby Bojanic, STAFF RN-CNM tranexamic acid (CYKLOKAPRON) injection 1,000 mg 1,000 mg intravenous Q30 Min PRN Marilynn M Ashby Bojanic, STAFF RN-CNM ALLERGIES No Known Allergies FAMILY HX Family [...] Results Component Value Date GLUF 76 01/08/2023 [id number] 143 01/08/2023 [id number] 134 01/08/2023 [id number] 101 (H) 01/08/2023 PHYSICAL EXAM: Consitutional: well-appearing; [...] Pitocin Position changes and fluids with carbs Marilynn Jacques APRN-JOSEPH 03/31/232140 Marilynn Jacques APRN-SHERIF 03/31/232142 [facility] History of Present illness Narrative* Elisa Salmon RN - 03/27/2023 1:45 PM EST Denies cramping or contractions. Denies LOF or [...] keep all scheduled appointments documented in this encounterA[facility]01[facility] Miscellaneous Notes* Telephone Encounter - AURELIA Carrillo - 03/26/2023 11:14 AM EST Pt called the CNM respiratory care practitioner with C/O lower pelvic discomfort. She has been Dx'd with poly with DVP > 10. Pt denies VB, LOF and reports good FM. Discussed round ligament discomfort and discomforts ofpoly. Discussed confort measures and told the pt that if she did not get releif she was always ableto come to the [facility]. PNC appt tomorrow and pt encouraged to discuss her discomforts with her CNM. She agreed with plan. documented in this encounterAult[facility]01-[facility]24 Telephone encounter Note* Telephone Encounter - AURELIA Carrillo - 03/26/2023 11:14 AM EST Pt called the CNM respiratory care practitioner with C/O lower pelvic discomfort. She has been Dx'd with poly with DVP > 10. Pt denies VB, LOF and reports good FM. Discussed round ligament discomfort and discomforts ofpoly. Discussed confort measures and told the pt that if she did not get releif she was always ableto come to the [facility]. PNC appt tomorrow and pt encouraged to discuss her discomforts with her CNM. She agreed with plan. [employer] Work Phone: 1(583) 698-544201-24-2024 History of Present illness Narrative* AURELIA Arzola - 03/25/2023 3:00 PM EST 22 y.o. at 38w1d. Here for routine OB visit. Denies CTX, VB, dysuria, and LOF. +FM. Reviewed normal length of . Continuing daily aspirin as ordered. Feels well mentally and denies SIor problems. Taking Zoloft as ordered. Denies recent syncopal symptoms or episodes; following with cardiology. Last episode was a few months ago. Per last cardiology note, plans to see patient 3 months from March visit. A comprehensive review of systems was negative besides above noted. Desires cervical check. Declines psychologist counseling for physical exam. Cervical exam: 3/70%/-2, medium, mid position Reyes: 7 1. Reviewed signs of labor, warning signs, and movement 2. Discussed when to call CNM respiratory care practitioner, where to go in labor 3. Anemia: continuing ferrous sulfate PO faithfully. Encouraged pt to complete CBC as ordered 03/18. 4. Polyhydramnios: 03/24/23: Amniotic fluid assessment (DVP) is 10.9 cm, mild polyhydramnios. NST twice a week & DVP weekly. Next NST 03/27. Delivery between 39-40 weeks. Discussed recommendationwith pt. IOL sheet sent to L&D. Confirmed pt phone number and asked her to answer her phone with call to schedule from L&D. 5. Return in period with AURELIA Ontiveros 03/25/23 [id number] * Kalani Barber CMA - 03/25/2023 3:00 PM EST Patient is here for routine exam at 38w1d denies LOF present movement Patient complains of lower abdominal and back pain documented in this encounterAultman Hospital01[facility] History of Present illness Narrative* Elisa Salmon RN - 03/24/2023 2:15 PM EST Denies cramping or contractions. Denies LOF or [...] keep all scheduled appointments documented in this encounterAultman Hospital01-18-2024 Miscellaneous Notes* Telephone Encounter - Kesha Jocelyn - 03/19/2023 2:12 PM EST Patient states that she went to a [...] reviewed the student CNM note. I agree withthe student CNM findings and plan with review of items for learning. I have made adjustments & discussed note & care for this patient. Federica Woods APRN, CNM spoke with KOURTNEY Biswas documented in this encounterAultman Hospital01-[facility]24 Telephone encounter Note* Telephone Encounter - Kesha Jocelyn - 03/19/2023 2:12 PM EST Patient states that she went to a [...] reviewed the student CNM note. I agree withthe student CNM findings and plan with review of items for learning. I have made adjustments & discussed note & care for this patient. Federica Woods APRN, CNM spoke with KOURTNEY Biswas [facility] History of Present illness Narrative* Hailey Burgos RN - 03/19/2023 1:15 PM EST Reports occasional cramping or contractions. Denies LOF or vaginal bleeding. +FM per patient. Difficult to trace baby due to large movements. EFM and toco adjusted. Patient rerports pain as 10/10 forcramping. No signs of distress noted. Instructed to [...] keep all scheduled appointments documented in this encounterAult[facility] Hospital01-[facility]24 Miscellaneous Notes* Telephone Encounter - AURELIA Main - 03/19/2023 12:04 AM EST Pt called in stating that she went to [place] for ruleout rupture. States they checked her [...] upper belly with contractions. Pt does not haveheadache at this time but has been having [...] concerns discussed. AURELIA MAIN documented in this encounterAultman Hospital01-18-[facility]24 Telephone encounter Note* Telephone Encounter - AURELIA Main - 03/19/2023 12:04 AM EST Pt called in stating that she went to [facility] [place] for ruleout rupture. States they checked her [...] upper belly with contractions. Pt does not haveheadache at this time but has been having [...] All questions and concerns discussed. AURELIA MAIN [facility] Miscellaneous Notes* Telephone Encounter - AURELIA Main - 03/18/2023 8:19 PM EST Pt called in stating she felt a [...] of plan. AURELIA MAIN documented in this encounterAultman Hospital01-17-2024 Telephone encounter Note* Telephone Encounter - AURELIA Main - 03/18/2023 8:19 PM EST Pt called in stating she felt a large gush of fluid around 1999. Has been leaking since. Has been having contractions throughout the day. Reports good movement. Denies any vaginal bleeding. Instructed pt to come in to be evaluated for rule-out rupture. Pt to come in. Triage CNM notified. All questions and concerns discussed, pt verbalizes understanding of plan. AURELIA MAIN [facility] History of Present illness Narrative* Wilda White RN - 03/18/2023 1:45 PM EST Patient here for routine at 37w1d Denies LOF Positive movement Urine: small leukocytes * Kesha Banks - 03/18/2023 1:45 PM EST S: 22 y.o. at 37w1d. No CTX, VB, LOF. Endorses good FM. Pt states she was in the [facility] last night for contractions and was sent home with labor precautions. CNM note reveals she called last aboutocular issues including inability to see and floaters in vision, but denies s/s of pre-eclampsia inOBED last night and in clinic today. Pt states she is still having contractions every 2-3 minutes but they are irregular and she is still able to walk and talk through them. Discussed s/s labor, and when to call CNM respiratory care practitioner. Discussed water intake, and trying to get at least 8-10 glasses ofwater a day. Denies s/s of UTI. O: BP 117/76 Wt 109.1 kg (240 lb 8 oz) LMP 06/20/2022 BMI 41.28 kg/m Urine dipstick in clinic Large ketones, small leukocytes, +1 protein Last Growth US: 03/18/2023 Est. FW: 2723 gm 6 lb 19 % AC: 315.1 mm G.Age: 35w 3d 18 % DVP: 7.09 cm A/P: Diagnosis Plan 1. Anemia during in third trimester 01/06/23 10.4/30.8 CBC with auto differential ordered Reports taking po iron 2. Depression, unspecified depression type Denies thoughts of harming herself or others Denies s/s of depression 3. Encounter for care in third trimester of first 4. Recurrent syncope Reviewed need for increase in hydration; change positions slowly. 1. Reviewed signs of labor and movement, when to dave CNM respiratory care practitioner vs going to [facility]; alternative therapies to help with 3rd trimester discomforts. 2. GBS - 3. Return 1 week with CNM I saw and evaluated the patient with the student CNM. I reviewed the student CNM note. I agree withthe student CNM findings and plan with review of items for learning. I have made adjustments & discussed note & care for this patient. Federica Woods APRN, CNM seen with KOURTNEY Biswas APRN-CNM 03/18/231810 AURELIA Smith 03/18/231812 documented in this encounterAultman Hospital01-16-2024 Miscellaneous Notes* Telephone Encounter - Es Cisse RN - 03/17/2023 3:51 PM EST Pt calling to report headache and visual disturbance. States that she was on her phone and all of asudden she was seeing white flashing spots and could see nothing else. Pt advised to go to OB ED after discussing the above with Federica Woods CNM. documented in this encounterAultman Hospital01-16-2024 Telephone encounter Note* Telephone Encounter - Es Cisse RN - 03/17/2023 3:51 PM EST Pt calling to report headache and visual disturbance. States that she was on her phone and all of asudden she was seeing white flashing spots and could see nothing else. Pt advised to go to OB ED after discussing the above with Federica Woods CNM. [facility] History of Present illness Narrative* Anita Trejo LPN - 03/12/2023 2:00 PM EST Pt here for 36w2d visit Denies LOF or bleeding Positive movement No further concerns * AURELIA Rangel - 03/12/2023 2:00 PM EST 22 y.o. at 36w2d. Here for routine [...] requesting eIOL at 39 weeks. She was 2/50/-3 in triage. Discussed favorable cervix. Plan for repeat SVE at 38 weeks and schedule pt is appropriate. GBS obtained- declined psychologist counseling. Vulva WNL 1. Reviewed signs of labor and movement 2. Discussed when to call CNM respiratory care practitioner, where to go in labor 3. GBS collected 4. Return 1 week 5. Had NST and DVP at [facility] today awaiting results. Next NST/DVP 03/16 has growth scheduled 03/18 AURELIA Rangel 03/12/23 1448 * Anita Trejo LPN - 03/12/2023 2:00 PM EST Urine: trace protein and small bilirubin documented in this encounterAultman Hospital01-11-2024 History of Present illness Narrative* Bozena Briggs RN - 03/12/2023 12:45 PM EST Denies cramping or contractions. Denies LOF or [...] keep all scheduled appointments documented in this encounterAultman Hospital01-09-2024 History of Present illness Narrative* Richie MatariesDO - 03/10/2023 4:15 PM EST Jolene Burrows Date of visit: 03/10/2023 Date [...] Migraines Inappropriate sinus tachycardia Elevated glucose tolerance rn testing of spinal muscular atrophy No Known Allergies [...] needed for itching. 30 capsule 0 vit 83-opkq-bhjkz-dha 18-1-350 mg capsule Take 1 tablet by [...] file Stress: No Stress Concern Present (09/18/2022) [employer] - Occupational Stress Questionnaire Feeling of Stress : Not at all Social Connections: Moderately Isolated (09/18/2022) Social Connection and Isolation Panel [NHANES] Frequency of Communication with Friends and Family: More than three times a week Frequency of Social Gatherings with Friends and Family: More than three times a week Attends Jainism Services: Never Active Member of Clubs or [...] defined for this encounter. documented in this encounterAultman Hospital01-08-2024 Miscellaneous Notes* Telephone Encounter - Eulalia Torres CMA - 03/09/2023 11:26 AM EST Left message for patient to remind them to bring their most current medication list with them to their appointment. documented in this encounterAultman Hospital01-08-2024 Telephone encounter Note* Telephone Encounter - Eulalia Torres CMA - 03/09/2023 11:26 AM EST Left message for patient to remind them to bring their most current medication list with them to their appointment. [facility]01-07-2024 Miscellaneous Notes* Telephone Encounter - AURELIA Rangel - 03/08/2023 6:12 PM EST Pt calls states she is soaking through multiple pads throughout the day. States is clear. Does not feel trickling but has soaked pads. Advised pt to come to triage for eval. documented in this encounterNort[facility] HospitalGloss[facility]01-[facility]24 Telephone encounter Note* Telephone Encounter - AURELIA Rangel - 03/08/2023 6:12 PM EST Pt calls states she is soaking through multiple pads throughout the day. States is clear. Does not feel trickling but has soaked pads. Advised pt to come to triage for eval. [facility] Work Phone: 1(145) 633-772401-04-2024 History of Present illness Narrative* Fadumo Al RN - 03/05/2023 1:15 PM EST Patient reports regular contractions that are 5-6 minutes apart,rating them a 10/10.. Denies LOF orvaginal bleeding. +FM per patient. Instructed to notify [...] keep all scheduled appointments documented in this encounterAultman Hospital01-04-2024 History of Present illness Narrative* Wilda White RN - 03/05/2023 10:00 AM EST Patient here for routine at 35w2d Denies LOF Positive movement Patient complains of continued ctx. States they have not changed since leaving triage Complains of continued anxiety states she had an anxiety attack on and couple days before that. Has been taking zoloft everyday since 02/19/23 * Shakira Marely, STAFF RN-REMELT OPERATOR - 03/05/2023 10:00 AM EST 22 y.o. at 35w2d. No VB, LOF. Positive FM. She was seen in the [facility] due to contractions around 02:00 o'clock this morning. UA was positive forketones. SVE was , unchanged after 1 hour. [...] with no relief. SVE in the office /. Slightly posterior. We discussed this is a slight change from her check in triage, but it could just be a difference and provider check as well. Encouraged her to present tothe [facility] if contractions continue, or worsen. She [...] New prescription sent. We discussed she can knot picker cloth new prescription, or take 2 tablets of her 25 mg until gone and then knot picker cloth new prescription. Patient verbalized understanding. Encouraged low threshold for returning back to [facility]. Discussed if contractions continue to present [facility] for monitoring and SVE. Reviewed how to get hold of the CNM on-call GBS next visit Follow-up 1 week with SHERIF. LORRAINE Zarate APRN-CNP 03/05/23 1106 documented in this encounterJ.W. Ruby Memorial HospitalSafetyPay Beaumont [id number] Miscellaneous Notes* Telephone Encounter - AURELIA Main - 03/05/2023 12:50 AM EST Pt called and said right before bed, [...] Endorses good movement. She says has been havingbraxton jean baptiste for weeks but these are much more uncomfortable. Instructed to come in to [facility] to be seen for ruleout labor. Pt knows where [facility] is and willcome in. Discussed can try tylenol to see if pain resolves, but recommend coming in now since has been having for over an hour consistently. AURELIA MAIN documented in this encounterJ.W. Ruby Memorial HospitalSafetyPay Beaumont [id number] Telephone encounter Note* Telephone Encounter - AURELIA Main - 03/05/2023 12:50 AM EST Pt called and said right before bed, [...] Endorses good movement. She says has been havingbraxton jean baptiste for weeks but these are much more uncomfortable. Instructed to come in to [facility] to be seen for ruleout labor. Pt knows where [facility] is and willcome in. Discussed can try tylenol to see if pain resolves, but recommend coming in now since has been having for over an hour consistently. AURELIA MAIN [facility]12-28-2023 Miscellaneous Notes* Telephone Encounter - AURELIA Arzola - 02/26/2023 6:26 PM EST Pt called on-call CNM stating that she is 34wks and fell [...] is comfortable with plan. documented in this encounterJ.W. Ruby Memorial HospitalSafetyPay Beaumont [id number] Telephone encounter Note* Telephone Encounter - AURELIA Arzola - 02/26/2023 6:26 PM EST Pt called on-call CNM stating that she is 34wks and fell [...] voices understanding and is comfortable with plan. [facility] [employer] Work Phone: 1(162) 623-993312-28-2023 History of Present illness Narrative* Hailey Burgos RN - 02/26/2023 6:03 PM EST [facility] for return call to schedule wkly nst.afion 03/05. Has [facility] appt at 1000. documented in this encounterJ.W. Ruby Memorial HospitalSafetyPay Beaumont [id number] Miscellaneous Notes* Telephone Encounter - AURELIA Carrillo - 02/25/2023 7:28 AM EST Pt called the CNM respiratory care practitioner to report that she has had leaking into her pants all day. She sees the CNM's @ [facility] for care. She was told to come to the [facility] for eval and she agreed. documented in this encounterJ.W. Ruby Memorial HospitalTrackR [id number] Telephone encounter Note* Telephone Encounter - AURELIA Carrillo - 02/25/2023 7:28 AM EST Pt called the CNM respiratory care practitioner to report that she has had leaking into her pants all day. She sees the CNM's @ [facility] for care. She was told to come to the [facility] for eval and she agreed. [facility] Work Phone: 1([phone]) 477-249407-10-2023 Evaluation note* Encounter Date Diagnosis Assessment Notes Treatment Notes Treatment Clinical Notes Aug, Acute swimmer's ear of left [...] water inside ear after shower may use wheelchair driver on lowest cool setting to blow dry. Follow up with PCP or UC if no improvement in the next 2-3 days. Immediate eval for severe ear pain, severe headache, neck pain/stiffness, pain, erythema, or swelling behind the ear, fever, N/V, hearing loss, fever, or any other new or concerning symptoms. Patient verbalizes understanding and is agreeable to treatment plan. [facility] Other 10-04-2022 Evaluation note* Encounter Date Diagnosis [...] H54.7) Nov, Seizure-like activity (ICD-10 - R56.9) [employer] Other 08-30-2022 Evaluation note* Encounter Date Diagnosis [...] R55) Sep, Idiopathic hypotension (ICD-10 - I95.0) [facility] Other 08-28-2022 Hospital Discharge instructions* Discharge Instructions* Fern Busch DO - 10/27/2021 5:55 AM EDT Please follow-up with your new primary care provider in 3 days for your scheduled appointment return to the emergency room for any worsening symptoms worsening dizziness or persistent headache. Any numbness, tingling or weakness. documented in this encounterB[facility] Work Phone: [phone]) 571-101503-20-2022 Evaluation note* Encounter Date Diagnosis Assessment Notes [...] Patient care instructions given in writting by [facility] document. [employer] Other 12-22-2021 Evaluation note* Encounter Date Diagnosis [...] Patient care instructions given in writting by [facility] document. Additional time spent conducting pre-visit phone call, screening for symptoms, instructions on social distancing, application and removal of PPE, and cleaning of examination room, equipment and supplies was preformed. Patient education given for testing methodology and results. Patient care instructions given in writting by [facility] document. [facility] Other Evaluation note* Diagnosis Dizziness- Primary Dizziness and giddiness Nonintractable headache, unspecified chronicity pattern, unspecified headache type documented in this encounter [facility] [employer] [facility] Work Phone: evaluation noteNo assessment information available [facility] Work Phone: Evaluation note* Diagnosis Orthostasis- Primary Orthostatic hypotension Syncope and collapse documented in this encounter [facility] [employer]al[facility] healthcare note* Diagnosis Encounter for care in third trimester of first - Primary uterine contractions in third trimester, antepartum Depression affecting in third trimester, antepartum 35 weeks gestation of documented in this encounter [facility]Evaluation [facility]* Diagnosis Obesity affecting , antepartum, unspecified obesity type [facility]* Diagnosis Heart palpitations- Primary Palpitations documented [facility]* Diagnosis Obesity affecting , antepartum, unspecified obesity type [facility]* Diagnosis High-risk first of young woman, third trimester- Primary 36 weeks gestation of [facility]* Diagnosis Encounter for care in third trimester of first - Primary Anemia during in third trimester Depression, unspecified depression type documented [facility]* Diagnosis Obesity affecting , antepartum, unspecified obesity type documented [facility]* Diagnosis Obesity affecting , antepartum, unspecified obesity type [facility]* Diagnosis Encounter for care in third trimester of first - Primary [facility]* Diagnosis Polyhydramnios affecting in third trimester- Primary (normal spontaneous vaginal delivery) Normal delivery Lactating mother care and examination of lactating mother documented in this encounter [facility]Evaluation [facility]* Diagnosis Heart palpitations- Primary Palpitations documented [facility]* Diagnosis Recurrent syncope- Primary Inappropriate sinus tachycardia ([facility]) documented in this encounter [facility] HospitalEvaluation [facility]* Diagnosis Encounter for routine follow-up- Primary Counseling for initiation of control method control counseling documented in this encounter [facility]* Diagnosis Benign essential microscopic hematuria- Primary History of depression Personal history of other mental disorder documented in this encounter [facility]* Diagnosis POTS (postural orthostatic tachycardia syndrome)- Primary Unspecified tachycardia documented in this encounter [facility]* Diagnosis Diarrhea, unspecified type- Primary Complication of in first trimester documented in this encounter [facility] note* Diagnosis Absence of menstruation- Primary Nausea and vomiting in Unspecified vomiting of , unspecified as to episode of care Positive test examination or test, positive result Right upper quadrant pain Abdominal pain, right upper quadrant Diarrhea, unspecified type documented in this encounter [facility]* Diagnosis Vaginal bleeding- Primary Other specified noninflammatory disorder of vagina Miscarriage Unspecified spontaneous without mention of complication documented in this encounter [facility] note* Diagnosis Recurrent syncope- Primary Heart palpitations Palpitations Inappropriate sinus tachycardia POTS (postural orthostatic tachycardia syndrome) Unspecified tachycardia documented in this encounter [facility]* Diagnosis Missed menses- Primary Encounter for insertion of Mirena IUD documented in this encounter [facility]* Diagnosis Dislocation of left patella, initial encounter- Primary Acute pain of left knee documented in this encounter [facility]Evalubeebe healthcare note* Diagnosis Onset Date Resolution Status Admit Date Left knee pain acute July 23, 2024 12:42pm [facility] Work Phone: Evaluation note* Diagnosis POTS (postural orthostatic tachycardia syndrome)- Primary Unspecified tachycardia Syncope, unspecified syncope type POTS (postural orthostatic tachycardia syndrome) Unspecified tachycardia Syncope, unspecified syncope type Orthostatic hypotension Class 3 severe obesity due to excess calories with body mass index (BMI) of 40.0 to 44.9 in adult ([facility]) Prediabetes Other abnormal glucose documented in this encounter [facility]* Diagnosis POTS (postural orthostatic tachycardia syndrome)- Primary Unspecified tachycardia Syncope, unspecified syncope type Prediabetes Other abnormal glucose Iron deficiency anemia, unspecified iron deficiency anemia type PCOS (polycystic ovarian syndrome) Polycystic ovaries Encounter for lipid screening for cardiovascular disease [facility]* Diagnosis Insulin resistance- Primary Other abnormal glucose [facility]* Diagnosis Insulin resistance Other abnormal glucose [facility] in [facility]* Diagnosis POTS (postural orthostatic tachycardia syndrome) Unspecified tachycardia documented [facility]* Diagnosis POTS (postural orthostatic tachycardia syndrome) Unspecified tachycardia Syncope, unspecified syncope type documented [facility]* Diagnosis MARTY (generalized anxiety disorder)- Primary Generalized anxiety disorder Prediabetes Other abnormal glucose Insulin resistance Other abnormal glucose Cardiovascular risk factor POTS (postural orthostatic tachycardia syndrome) Unspecified tachycardia Metabolic syndrome Dysmetabolic Syndrome X Family history of heart disease Syncope, unspecified syncope type Family history of diabetes mellitus documented in this encounter [facility] SystemHistory general Narrative - Reported* Type Description Date Medical History migraine Hospitalization History over [facility] Other Hospital Discharge instructions* Attachments The following attachments cannot be sent through Care Everywhere. * Orthostatic hypotension ([place]) * Fainting? Adult ED ([place]) documented in this encounterProMedica Health SystemInstructionsNot on file documented in this encounterProMedica Health SystemInstructionsNot on file documented in this encounterProMedica Health SystemInstructionsNot on file documented in this encounterProMedica Health SystemInstructionsNot on file documented in this encounterProMedica Health SystemInstructionsNot on file documented in this encounterProMedica Health SystemInstructionsNot on file documented in this encounterProMedica Health SystemInstructionsNot on file documented in this encounterProMedica Health SystemInstructionsNot on file documented in this encounterProMedica Health SystemInstructionsNot on file documented in this encounterProMedica Health SystemInstructionsNot on file documented in this encounterProMedica Health SystemInstructionsNot on file documented in this encounterProMedica Health SystemInstructionsNot on file documented in this encounterProMedica Health SystemInstructionsNot on file documented in this encounterProMedica Health SystemInstructionsNot on file documented in this encounterProMedica Health SystemInstructionsNot on file documented in this encounterProMedica Health SystemInstructionsNot on file documented in this encounterProMedica Health SystemInstructionsNot on file documented in this encounterMain [facility] SystemInstructions* Attachments The following attachments cannot be sent through Care Everywhere. * Tachycardia ([place]) * Understanding body mass index (BMI) ([place]) documented in this encounterProCrystal Clinic [facility] SystemInstructionsNot on file documented in this encounterProCrystal Clinic [facility] SystemInstructionsNot on file documented in this encounterMain Campus Medical [facility] SystemInstructionsNot on file documented in this encounterProCrystal Clinic [facility] SystemInstructionsNot on file documented in this encounterProCrystal Clinic [facility] SystemInstructions* Attachments The following attachments cannot be sent through Care Everywhere. 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 Clerk Advance Directive Response Recorded Date/ Time Advance [...] Code 01/11/2017 4:28 AM 01/12/2017 9:14 PM Date Activated Date Inactivated Comments 08/29/2024 4:32 PM 08/31/2024 4:07 PM Date Activated Date Inactivated Comments 03/31/2023 9:23 PM 04/03/2023 5:31 PM Date Activated Date Inactivated Comments 01/04/2023 8:01 PM 01/04/2023 11:17 PM Date Activated Date Inactivated Comments 12/29/2022 9:45 PM 12/31/2022 3:29 PM Date Activated Date Inactivated Comments 09/18/2022 3:16 PM 09/19/2022 9:10 PM Date Activated Date Inactivated Comments 08/29/2024 4:32 PM 08/31/2024 4:07 PM Date Activated Date Inactivated Comments 03/31/2023 9:23 PM 04/03/2023 5:31 PM Date Activated Date Inactivated Comments 01/04/2023 8:01 PM 01/04/2023 11:17 PM Date Activated Date Inactivated Comments 12/29/2022 9:45 PM 12/31/2022 3:29 PM Date Activated Date Inactivated Comments 09/18/2022 3:16 PM 09/19/2022 9:10 PM Summary Purpose Family History No Family [...] loos e stool April 11, 2024 2:01pm Chief Complaint Admit Date Left knee pain July 23, 2024 12:42 pm M25.562 - Pain in left knee July 23 1:06pm Reason for Visit Admit Date Left knee pain July 23, 2024 12:42 pm Reason for Referral Specialty Diagnoses / Procedures Referred By Contac t Referred To Contact Procedures Discharge Follow-Up Fadumo Stevenson APRN-CNM [address] [place] [address] Referral ID Status Reason Start Date Expiration Date V isits Requested Visits Authorized [id number] Pending Review 04/03/2023 04/02/2024 1 1 Specialty Diagnoses / Procedures Referred By Contac t Referred To Contact Procedures Hygiene [facility] [address] [place] [address] Referral ID Status Reason Start Date Expiration Date V isits Requested Visits Authorized [id number] Pending Review 04/03/2023 04/02/2024 1 1 Specialty Diagnoses / Procedures Referred By Contac t Referred To Contact Procedures Adult diet [facility] [address] [place] [address] Referral ID Status Reason Start Date Expiration Date V isits Requested Visits Authorized [id number] Pending Review 04/03/2023 04/02/2024 1 1 Specialty Diagnoses / Procedures Referred By Contac t Referred To Contact Maternal and Medicine Diagnoses Obesity affecting , antepartum, unspecified obesity type Procedures nonstress test - Maternal Medicine Lorena Smith MD [address] [place] [address] [facility] Maternal Med [address] [place] [address] Referral ID Status Reason Start Date Expiration Date V isits Requested Visits Authorized [id number] Pending Review 03/19/2023 03/18/2024 6 6 Additional Source Comments INFORMATION SOURCE (unrecogn ized section and content) DATE CREATED AUTHOR 09/21/2019 [facility] DATE CREATED AUTHOR AUTHOR'S ORGANIZ ATION 12/07/2021 [facility] DATE CREATED AUTHOR AUTHOR'S ORGANIZ ATION 07/05/[address] [facility] DATE CREATED AUTHOR AUTHOR'S ORGANIZ ATION 07/17/2024 [facility] DATE CREATED AUTHOR AUTHOR'S ORGANIZ ATION 07/20/2024 [facility] DATE CREATED AUTHOR AUTHOR'S ORGANIZ ATION 07/30/2024 [facility] DATE CREATED AUTHOR AUTHOR'S ORGANIZ ATION 08/21/2024 [facility] DATE CREATED AUTHOR AUTHOR'S ORGANIZ ATION 10/14/2024 [facility] DATE CREATED AUTHOR AUTHOR'S ORGANIZ ATION 10/25/2024 [facility] REASON FOR VISIT (unrecogniz ed section and content) Reason Comments 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 Diagnoses / Procedures Referred By Contac t Referred To Contact Maternal and Medicine Diagnoses Obesity affecting , antepartum, unspecified obesity type Procedures nonstress test - Maternal Medicine Lorena Smith MD [address] [place] [address] [facility] Maternal Med [address] [place] [address] Referral ID Status Reason Start Date Expiration Date V isits Requested Visits Authorized [id number] Pending Review 03/19/2023 03/18/2024 6 6 Reason Comments High Risk Gestation Non-stress Test Obesity Specialty Diagnoses / Procedures Referred By Contac t Referred To Contact Maternal and Medicine Diagnoses Obesity affecting , antepartum, unspecified obesity type Procedures nonstress test - Maternal Medicine Melissa Barr, STAFF RN-CN [address] [place] [address] [facility] Maternal Med [address] [place] [address] Referral ID Status Reason Start Date Expiration Date V isits Requested Visits Authorized [id number] Pending Review 01/27/2023 01/27/2024 10 10 Reason [...] and is feeling weak today. 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 [place]) Reason Comments Routine Visit Reason Comments Non-stress Test High Risk Gestation BMI Uterine Size-Date Discrepancy SMA Carrier Reason Comments Follow-up 2MO F/U-L/S [facility]-BRIGGS ER MON 11/28-LABS 110/7CHS-SCHD APPT W/PT Reason Comments High Risk Gestation Non-stress Test Obesity Anemia SMA carrier Specialty Diagnoses / Procedures Referred By Contac t Referred To Contact Maternal and Medicine Diagnoses Obesity affecting , antepartum, unspecified obesity type Procedures nonstress test - Maternal Medicine Melissa Barr STAFF RN-CNM [address] [place] [address] [facility] Maternal Med [address] [place] [address] 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 Specialty Diagnoses / Procedures Referred By Pascale collins Referred To Contact Diagnoses Polyhydramnios affecting in third trimester Augustine Richter MD [address] [facility], [address] [address] Referral ID Status Reason Start Date Expiration Date Visits Re quested Visits Authorized [id number] 1 1 Reason Comments Follow-up Syncope Shortness of Breath ER [facility] Reason Comments Care Reason Comments Contraception [...] vaginal bleeding like a period 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 Reason Comments Follow-up 6MO F/U POTS SCHED W /PT NO TESTING Reason Comments Procedure Reason Comments Pain Reason Comments Syncope Palpitations Letter for School/Work Specialty Diagnoses / Procedures Referred By Pascale collins Referred To Contact Diagnoses Syncope POTS (postural orthostatic tachycardia syndrome) Syncope, unspecified syncope type Prema Reyes MD [address] [facility], [facility] [place] [address] [place] [address] Phone: tel: fax: Referral ID Status Reason Start Date Expiration Date Visits Re quested Visits Authorized [id number] 1 1 Reason Comments Med Change Request Reason Comments [facility] Reason Comments Follow-up 3MO F/U-L/S TMP-HOSP STAY 08/29-08/31 PMH-LABS 08/31 PMH-CHEST XRAY 08/29 PMH-VAS CAROTID DUPLEX HALEY & ECHO 08/30 PMH-SCHD APPT W/PT Reason Comments Follow-up 1 mo for POTS and Ob esity. Pt states her Anxiety has been really bad. No other issues or concerns today. Scheduled Active and Recently Administ ered Medications (unrecognized section and content) Medication Order 10/25/2021 10/26/2021 10/27/2021 acetaminophen (TYLENOL) tablet 1,000 mg (COMPLETED) 1,000 mg, Oral, ONCE, 1 dose, On 10/27/21 at 0230 0237 (Given - Provid er: Annetta Arteaga, RN) ondansetron (ZOFRAN-ODT) disintegrating tablet 4 mg (COMPLETED) 4 mg, Oral, ONCE, 1 dose, On 10/27/21 at 0245 0303 (Given - Provid er: Annetta Arteaga, RN) Scheduled Medication Order 08/21/2023 08/22/2023 08/23/2023 sodium chloride 0.9 % bolus 1,000 mL (COMPLETED) 1,000 mL (9.59 mL/kg), IntraVENous, at 983.6 mL/hr, Administer over 61 Minutes, ONCE, On Thu08/23/23 at 1130, For 1 dose, For adult [...] Clive Cheatham RN)1314 (Stopped - Provider: Annetta Mortensen, GIOVANNY) Scheduled Medication Order 04/01/2023 04/02/2023 04/03/2023 docusate sodium (COLACE) capsule 100 mg 100 mg, oral, 2 times daily, First dose on Thu04/01/23 at 2330, , Look-alike/sound-ali ke medication - verify indication for use. 2330 (Not Given - Provider: Liat Mccracken RN - Reason: Other - Comment: See MAR) 827 (Given - Provider: Gloria Silverman RN)2041 (Given - Provider: Rosa Maria Laurent RN) 0935 (Given - Provider: Gloria Silverman RN) ferrous sulfate tablet 325 mg 325 mg, oral, 2 times daily with meals, First dose on Sammie 04/02/23 at 0800, , Give ferrous sulfate 2 hours before or 4 hours after antacids. 827 (Given - Provider: Gloria Silverman RN)1817 (Given - Provider: Gloria Silverman RN) 0935 (Given - Provider: Gloria Silverman RN) PNV,calcium 73-lmdz-keanx acid ( PLUS) 27 mg iron- 1 mg tablet 1 tablet 1 tablet, oral, Daily, First dose on Sammie 04/02/23 at 0900, 08 (Given - Provider: Gloria Silverman RN) 0936 (Given - Provider: Gloria Silverman RN) polyethylene glycol (GLYCOLAX) packet 17 g 17 g, oral, Daily, First dose on Sammie 04/02/23 at 0900, , Look-alike/sound-ali ke medication - verify indication for use. Dissolve 1 packet (17 gm) in 8 ounces of water, juice, soda, coffee or tea. 827 (Given - Provider: Gloria Silverman RN) 09 (Given - Provider: Gloria Silverman RN) sertraline [...] Provider: Liat Mccracken RN - Reason: IV infusing)08 (Given - Provider: Gloria Silverman RN)1715 (Canceled Entry - Provider: Gloria Silverman RN)2042 (Given - Provider: Rosa Maria Laurent RN) [...] LARRY Olson)1900 (Handoff - Provider: Heather Rawls RN)190 (Given - Provider: LARRY Olson)2225 (Controlled Substance Wasted - Provider: Anat Leblanc RN) lactated ringers infusion (CANCELED) 125 mL/hr, intravenous, Continuous, Starting on Thu03/31/23 at 2130, L&D Pre-Delivery 0157 (Rate/Dose Verify - Provider: Isabell Byrne RN)0208 (Rate/Dose Verify - Provider: Isabell Byrne RN)0259 (Stop Bag - Provider: Isabell Caughhorn, RN)0259 (Stop Bag - Provider: Isabell Byrne [...] Rawls RN)1942 (New Bag - Provider: Anat Leblanc RN)2221 (Stop Bag - Provider: Anat Leblanc RN) lactated ringers infusion 50 mL/hr, intravenous, Continuous, [...] Byrne RN)0103 (Rate/Dose Change - Provider: Isabell Bryne RN)0131 (Rate/Dose Change - Provider: Isabell Byrne [...] Rawls RN)2253 (Rate/Dose Change - Provider: Liat Mccracken, RN) 0059 (Stop Bag - Provider: Liat Mccracken RN) PRN Medication Order 04/01/2023 04/02/2023 04/03/2023 acetaminophen (TYLENOL EXTRA STRENGTH) tablet 1,000 mg 1,000 mg, oral, Every 8 hours PRN, moderate pain - pain scale 4-6, severe pain - pain scale 7-10, Starting on Thu04/01/23 at 2323, 0828 (Given - Provider: Gloria Silverman, RN)1818 (Given - Provider: Gloria Silverman, RN) 0935 (Given - Provider: Gloria Silverman RN) acetaminophen (TYLENOL) tablet 650 mg 650 mg, oral, Every 4 hours PRN, mild pain - pain scale 1-3, Starting on Thu04/01/23 at 2323, benzocaine-menthoL (DERMOPLAST) topical spray 1 Application 1 Application, topical, As needed, pain, perineum discomfort, Starting on Thu04/02/23 at 0111, , May keep at bedside bisacodyL (DULCOLAX) suppository 10 mg 10 mg, rectal, Once as needed, constipation, no relief from docusate or senna/docusate, Starting on Thu04/02/23 at 0111, For 1 dose, , Start [...] Application, rectal, As needed, hemorrhoids, Starting on Thu04/02/23 at 0111, , May keep at bedside, Indications: hemorrhoids ibuprofen (MOTRIN) tablet 800 mg 800 mg, oral, Every 8 hours PRN, cramping, Starting on Thu04/01/23 at 2323, , Look-alike/sound-alike medication - verify indication for use. Take/Give with food or milk. 1424 (Given - Provider: Gloria Silverman, RN) 1450 (Given - Provider: Gloria Silverman, GIOVANNY) lactated ringers bolus (COMPLETED) 500 mL, intravenous, [...] GIOVANNY)0313 (Stop Bag - Provider: Liat Mccracken, RN) lactated ringers infusion(Linked Group 2) 83 mL/hr, intravenous, Continuous PRN, post-delivery hemostasis, Starting on Thu04/02/23 at 0111, , Administer for 4 hours. Administer with Oxytocin bolus and infusion lactated ringers infusion 999 mL/hr, intravenous, Continuous PRN, hemorrhage treatment, Starting on Thu04/02/23 at 0111, , Per infusion pump. For [...] Look-alike/sound-alike medication - verify indication for use. 2227 (Given - Provider: Anat Leblanc RN) methylergonovine [...] Look-alike/sound-alike medication - verify indication for use. 2227 (Given - Provider: Anat Leblanc RN) miSOPROStoL [...] Heather Rawls, RN)1617 (Given - Provider: Heather Rawls RN) ondansetron (PF) (ZOFRAN) injection 4 mg (CANCELED) 4 mg, intravenous, Every 4 hours PRN, nausea, vomiting, Starting on Thu03/31/23 at 2119, L&D Pre-Delivery, Administer over 2-5 minutes. 1440 (Given - Provider: Satinder Gill RN) oxytocin (PITOCIN) bolus from bag solution 10 Units (COMPLETED) 10 Units, intravenous, Administer over 30 Minutes, Once as needed, post-delivery hemostasis, Starting on Thu03/31/23 at 2121, For 1 dose, , Administer via programmable [...] Leblanc RN) 0110 (Restarted - Provider: Liat Mccracken RN)0313 (Stop Bag - Provider: Liat Mccracken RN) oxytocin (PITOCIN) infusion 30 units/500 mL [...] needed, hemorrhage treatment, Starting on Thu03/31/23 at 211, For 1 dose, administer as directed by [...] 1526 (New Bag - Prov ider: Leena Hatfield, RN)1627 (Stopped - Provider: Leena Hatfield, GIOVANNY) Scheduled Medication Order 08/29/2024 08/30/2024 08/31/2024 dexAMETHasone (DECADRON) injection 4 mg 4 mg, intravenous, Every 12 hours scheduled, First dose on Thu08/30/24 at 1200, May alter blood glucose or insulin requirements. Look-alike/sound-alike medication - verify indication for use. 1253 (Given - Provider: Aletha Jesus RN)2129 (Given - Provider: Eloina Kirk, GIOVANNY) 0820 (Given - Provider: Aletha Jesus, GIOVANNY) dextrose 5 % and 0.9 % sodium chloride bolus (COMPLETED) 1,000 mL, intravenous, at 1,000 mL/hr, Administer over 1 Hours, Once, On Thu08/29/24 at 1300, For 1 dose 1304 (New Bag - Provider: Antonio Conway)1417 (Stop Bag - Provider: Antonio Conway) enoxaparin (LOVENOX) syringe 40 mg 40 mg, subcutaneous, Daily, First dose on Thu08/29/24 at 1715, Look-alike/sound-alike medication - verify indication for use. 1738 (Given - Provider: Nayla Billingsley RN) 0528 (Given - Provider: Elisa Myles, GIOVANNY) 0551 (Given - Provider: Eloina Kirk, GIOVANNY) fludrocortisone (FLORINEF) tablet 0.1 mg (CANCELED) 0.1 mg, oral, 2 times daily, First dose on Thu08/30/24 at 1230, Look-alike/sound-alike medication - verify indication for use. May alter blood glucose or insulin requirements. 1254 (Given - Provider: Aletha Jesus, GIOVANNY) fludrocortisone (FLORINEF) tablet 0.1 mg (CANCELED) 0.1 mg, oral, Daily, First dose (after last modification) on Thu08/31/24 at 0900, Look-alike/sound-alike medication - verify indication for use. May alter blood glucose or insulin requirements. 0821 (Given - Provider: Aletha Jesus, GIOVANNY) fludrocortisone (FLORINEF) tablet 0.1 mg 0.1 mg, oral, 2 times daily, First dose (after last modification) on Thu08/31/24 at 2100, Look-alike/sound-alike medication - verify indication for use. May alter blood glucose or insulin requirements. lactated ringers bolus (COMPLETED) 1,000 mL, intravenous, at 984 mL/hr, Administer over 61 Minutes, Once, On Thu08/29/24 at 1035, For 1 dose 1054 (New Bag - Provider: Antonio Conway)1202 (Stop Bag - Provider: Antonio Conway) metoprolol tartrate (LOPRESSOR) tablet 12.5 mg 12.5 mg, oral, 2 times daily, First dose on Thu08/31/24 at 1100, Look-alike/sound-alike medication - verify indication for use. 1145 (Given - Provider: Aletha Jesus RN) midodrine (PROAMATINE) tablet 2.5 mg (CANCELED) 2.5 mg, oral, 2 times daily, First dose on Thu08/29/24 at 2100, Look-alike/sound-alike medication - verify indication for use. 2056 (Given - Provider: Elisa Myles RN) 0842 (Given - Provider: Aletha Jesus, GIOVANNY) midodrine (PROAMATINE) tablet 5 mg 5 mg, oral, 3 times daily, First dose (after last modification) on Thu08/30/24 at 1400, Hold for systolic blood pressure greater than 110 Look-alike/sound-alike medication - verify indication for use. 1254 (Given - Provider: Aletha Jesus RN)2130 (Given - Provider: Eloina Kirk RN) 0551 (Given - Provider: Eloina Kirk RN) ondansetron (PF) (ZOFRAN) injection 4 mg (COMPLETED) 4 mg, intravenous, Once, On Thu08/29/24 at 1035, For 1 dose, Intravenous administration preferred to be given over 2-5 minutes. 1054 (Given - Provider: Antonio Conway) sodium chloride 0.9 % flush 3 mL 3 mL, intravenous, Every 12 hours scheduled, First dose on Thu08/29/24 at 2100 2100 (Not Given - Provider: Elisa Myles RN - Reason: IV infusing) 0900 (Not Given - Provider: Aletha Jesus RN - Reason: IV infusing)2100 (Not Given - Provider: Eloina Kirk RN - Reason: IV infusing) 0900 (Not Given - Provider: Aletha Jesus RN - Reason: Other) Continuous Medication Order 08/29/2024 08/30/2024 08/31/2024 sodium chloride 0.9 % infusion () 125 mL/hr, intravenous, Continuous, Starting on Thu08/29/24 at 1715, For 1 day 1724 (New Bag - Provider: Nayla Billingsley RN)1724 (Rate/Dose Verify - Provider: Aletha Jesus RN)1740 (Paused - Provider: Aletha Jesus RN)1745 (Restarted - Provider: Aletha Jesus RN)1755 (Paused - Provider: Aletha Jesus RN)1758 (Restarted - Provider: Aletha Jesus RN)193 (Paused - Provider: Aletha Jesus RN)194 (Restarted - Provider: Aletha Jesus RN)195 (Paused - Provider: Aletha Jesus RN)195 (Restarted - Provider: Aletha Jesus RN)2023 (Paused - Provider: Aletha Jesus RN)2026 (Restarted - Provider: Aletha Jesus RN)2128 (Paused - Provider: Aletha Jesus RN)213 (Paused - Provider: Aletha Jesus RN)213 (Restarted - Provider: Aletha Jesus RN) 0920 (Rate/Dose Change - Provider: Aletha Jesus RN)1053 (Paused - Provider: Aletha Jesus RN)1201 (Restarted - Provider: Aletha Jesus RN)1723 (Canceled Entry - Provider: Aletha Jesus RN - Comment: [Order ends at this time. Document the following action when infusion is complete: Stop Bag])181 (Stop Bag - Provider: Aletha Jesus RN - Comment: duplicate order see previous) sodium chloride 0.9 % infusion 125 mL/hr, intravenous, Continuous, Starting on Thu08/30/24 at 1200, For 2 days 1202 (New Bag - Provider: Aletha Jesus RN)1218 (Paused - Provider: Aletha Jesus RN)1218 (Paused - Provider: Aletha Jesus RN)1253 (Restarted - Provider: Aletha Jesus RN)1433 (Paused - Provider: Aletha Jesus RN)1515 (Restarted - Provider: Alehta Jesus RN)1906 (Rate/Dose Verify - Provider: Aletha Jesus RN)2134 (New Bag - Provider: Eloina Kirk RN) 1602 (Due: Order Ending - Provider: Automatic Discharge Provider - Comment: [Order ends at this time. Document the following action when infusion is complete: Stop Bag]) PRN Medication Order 08/29/2024 08/30/2024 08/31/2024 acetaminophen (TYLENOL) tablet 650 mg 650 mg, oral, Every 6 hours PRN, mild pain - pain scale 1-3, headaches, temperature greater than 38 C, Temperature greater than 38.3 C, Starting on Thu08/29/24 at 1704, [Warning: Total Acetaminophen not to exceed more than 4 grams (4000 mg) in 24 hours] calcium gluconate 3,000 mg in sodium chloride 0.9 % 100 mL IVPB 3,000 mg, intravenous, at 43.3 mL/hr, Administer over 3 Hours, As needed, ionized calcium 3.5 to 3.9 mg/dL, Starting on Thu08/29/24 at 1704, IV Administration of calcium via a central or deep vein preferred. Avoid administration in small hand veins VESICANT (RED) calcium gluconate 4,000 mg in sodium chloride 0.9 % 250 mL IVPB 4,000 mg, intravenous, at 72.5 mL/hr, Administer over 4 Hours, As needed, ionized calcium 3.4 mg/dL or less, Starting on Thu08/29/24 at 1704, IV administration of calcium via a central or deep vein is preferred. Avoid administration in small hand veins. VESICANT (RED) calcium gluconate IVPB 2000 mg/100 mL (20 mg/mL premix) 2,000 mg, intravenous, at 50 mL/hr, Administer over 2 Hours, As needed, ionized calcium 4 to 4.3 mg/dL, Starting on Thu08/29/24 at 1704, IV Administration of calcium via a central or deep vein preferred. Avoid administration in small hand veins VESICANT (RED) dextrose (GLUTOSE) 40 % gel 15 g 15 g, oral, As needed, low blood sugar, blood glucose less than 70 mg/dL, Starting on Thu08/29/24 at 1704, If patient conscious and taking PO. If blood glucose is not greater than 70 mg/dL after initial treatment, repeat treatment. dextrose 5 % (D5W) infusion 100 mL/hr, intravenous, Continuous PRN, blood glucose less than 70 mg/dL, Starting on Thu08/29/24 at 1704, Use immediately following dextrose 50% or glucagon treatment for patients who are unconscious or NPO. Contact prescriber for additional orders. If blood glucose is not greater than 70 mg/dL after initial treatment, repeat treatment. dextrose 50 % in water (D50W) 50% solution 25 mL 25 mL, intravenous, As needed, low blood sugar, blood glucose less than 70 mg/dL and unconscious or NPO with IV access, Starting on Thu08/29/24 at 1704, Push over 1-3 minutes STAT. If conscious and not NPO, immediately follow with meal tray or high protein (7 grams) snack if tray not available. If NPO, initiate 5% dextrose in water at 100 mL/hr and contact prescriber for additional orders. If blood glucose is not greater than 70 mg/dL after initial treatment, repeat treatment. VESICANT (RED) Warning: HYPERTONIC solution. glucagon HCL injection 1 mg 1 mg, intramuscular, As needed, low blood sugar, blood glucose less than 70 mg/dL and unconscious or NPO without IV access., Starting on Thu08/29/24 at 1704, If conscious and not NPO, immediately follow with meal tray or high protein (7Grams) snack if tray not available. If NPO, initiate IV 5% Dextrose/Water at 100 mL/hr and contact prescriber for additional orders. If blood glucose is not greater than 70 mg/dL after initial treatment, repeat treatment. magnesium sulfate IVPB 2000 mg/50 mL in iso-osmotic water (40 mg/mL premix) 2,000 mg, intravenous, at 25 mL/hr, Administer over 120 Minutes, As needed, Magnesium level 1.7 to 1.9 mg/dL, or Ionized Magnesium level 0.45 to 0.5 mmol/L., Starting on Thu08/29/24 at 1704, Recheck magnesium level 4 hours after infusion complete. With each magnesium result continue the replacement orders as needed. magnesium sulfate IVPB 4000 mg/100 mL in iso-osmotic water (40 mg/mL premix) 4,000 mg, intravenous, at 25 mL/hr, Administer over 240 Minutes, As needed, Magnesium level 1.6 mg/dL or less, or Ionized Magnesium level 0.44 mmol/L or less, Starting on Thu08/29/24 at 1704, Recheck magnesium level 4 hours after infusion complete. With each magnesium result continue the replacement orders as needed. ondansetron (PF) (ZOFRAN) injection 4 mg 4 mg, intravenous, Every 6 hours PRN, nausea, vomiting, Starting on Thu08/29/24 at 1704, Intravenous administration preferred to be given over 2-5 minutes. 1741 (Given - Provider: Nayla Billingsley RN) potassium chloride (K-TAB,KLOR-CON) CR tablet 30-50 mEq(Linked Group 1) 30-50 mEq, oral, As needed, Potassium Supplementation, Starting on Thu08/29/24 at 1704, Progress to oral potassium replacement when patient tolerating oral intake. If dose administered, recheck potassium level 4 hours after last dose. For potassium level 3.4 to 3.8 mmol/L and GFR 30 mL/min or greater=30 mEq. For potassium level 3.1 to 3.3 mmol/L and GFR 30 mL/min or greater=40 mEq. For potassium level 3 mmol/L or less and GFR 30 mL/min or greater=50 mEq. Do not crush or chew. 1737 (Given - Provider: Nayla Billingsley RN) potassium chloride (KAYCIEL) 20 mEq/15 mL solution 30-50 mEq(Linked Group 1) 30-50 mEq, oral, As needed, Potassium Supplementation, Starting on Thu08/29/24 at 1704, Progress to oral potassium replacement when patient tolerating oral intake. If dose administered, recheck potassium level 4 hours after last dose. For potassium level 3.4 to 3.8 mmol/L and GFR 30 mL/min or greater=30 mEq. For potassium level 3.1 to 3.3 mmol/L and GFR 30 mL/min or greater=40 mEq. For potassium level 3 mmol/L or less and GFR 30 mL/min or greater=50 mEq. Must dilute before use - Mix in 3-8 ounces of water or juice before administration When administering in feeding tube, flush before and after per policy and monitor potassium levels 1736 (See Alternative - Provider: Nayla Billingsley RN) potassium chloride IVPB 10 mEq/100 mL in water (0.1 mEq/mL premix)(Linked Group 1) 10 mEq, intravenous, at 100 mL/hr, Administer over 60 Minutes, As needed, POTASSIUM REPLACEMENT, Starting on Thu08/29/24 at 1704, IV if unable to use oral/enteral with the current dosing strategies Potassium level 3 mmol/L or less administer Potassium Chloride 50 mEq Potassium level 3.1 to 3.3 mmol/L administer Potassium Chloride 40 mEq Potassium level 3.4 to 3.8 mmol/L administer Potassium Chloride 30 mEq Use central line when applicable. Recheck potassium level 1 hour after total IVPB infusion complete, With each potassium result continue the replacement orders as needed VESICANT (YELLOW) Infuse each 10 mEq over a minimum of 1 hour. 1736 (See Alternative - Provider: Nayla Billingsley RN) sod phos di, mono-K phos mono (K-PHOS NEUTRAL) 250 mg tablet 2 tablet(Linked Group 2) 2 tablet, oral, As needed, for phosphorus level 2.3 mg/dL or less., Starting on Thu08/29/24 at 1704, If dose administered, recheck phosphorus level 4 hours after last dose. Look-alike/sound-alike medication - verify indication for use. Give with a full glass of water. sodium chloride 0.9 % flush 3 mL 3 mL, intravenous, As needed, line care, before and after each intermittent use, Starting on Thu08/29/24 at 1704 sodium chloride 0.9 % flush bag 25 mL, intravenous, at 100 mL/hr, Administer over 15 Minutes, As needed, line care, line care after IVPB administration, Starting on Thu08/29/24 at 1704 sodium chloride 0.9 % infusion 20 mL/hr, intravenous, Continuous PRN, to maintain patency of lines, Starting on Thu08/29/24 at 1704 sodium phosphate 20 mmol in sodium chloride 0.9 % 100 mL IVPB(Linked Group 2) 20 mmol, intravenous, at 26.7 mL/hr, Administer over 4 Hours, As needed, for phosphorus level 2.3 mg/dL or less., Starting on Thu08/29/24 at 1704, Administer over 4 hours via dedicated line (central line). If administered, recheck phosphorus level 4 hours after infusion complete. Infuse using central line access. sodium phosphate 20 mmol in sodium chloride 0.9 % 250 mL IVPB(Linked Group 2) 20 mmol, intravenous, at 42.8 mL/hr, Administer over 6 Hours, As needed, for phosphorus level 2.3 mg/dL or less, Starting on Thu08/29/24 at 1704, Administer over 6 hours via dedicated line (peripheral line). If administered, recheck phosphorus level 4 hours after infusion complete. Linked Groups Order Group 1: potassium chloride (K-TAB,KLOR-CON) CR tablet 30-50 mEqJump to med 30-50 mEq, oral, As needed, Potassium Supplementation, Starting on Thu08/29/24 at 1704, Progress to oral potassium replacement when patient tolerating oral intake. If dose administered, recheck potassium level 4 hours after last dose. For potassium level 3.4 to 3.8 mmol/L and GFR 30 mL/min or greater=30 mEq. For potassium level 3.1 to 3.3 mmol/L and GFR 30 mL/min or greater=40 mEq. For potassium level 3 mmol/L or less and GFR 30 mL/min or greater=50 mEq. Do not crush or chew. Or potassium chloride (KAYCIEL) 20 mEq/15 mL solution 30-50 mEqJump to med 30-50 mEq, oral, As needed, Potassium Supplementation, Starting on Thu08/29/24 at 1704, Progress to oral potassium replacement when patient tolerating oral intake. If dose administered, recheck potassium level 4 hours after last dose. For potassium level 3.4 to 3.8 mmol/L and GFR 30 mL/min or greater=30 mEq. For potassium level 3.1 to 3.3 mmol/L and GFR 30 mL/min or greater=40 mEq. For potassium level 3 mmol/L or less and GFR 30 mL/min or greater=50 mEq. Must dilute before use - Mix in 3-8 ounces of water or juice before administration When administering in feeding tube, flush before and after per policy and monitor potassium levels Or potassium chloride IVPB 10 mEq/100 mL in water (0.1 mEq/mL premix)Jump to med 10 mEq, intravenous, at 100 mL/hr, Administer over 60 Minutes, As needed, POTASSIUM REPLACEMENT, Starting on Thu08/29/24 at 1704, IV if unable to use oral/enteral with the current dosing strategies Potassium level 3 mmol/L or less administer Potassium Chloride 50 mEq Potassium level 3.1 to 3.3 mmol/L administer Potassium Chloride 40 mEq Potassium level 3.4 to 3.8 mmol/L administer Potassium Chloride 30 mEq Use central line when applicable. Recheck potassium level 1 hour after total IVPB infusion complete, With each potassium result continue the replacement orders as needed VESICANT (YELLOW) Infuse each 10 mEq over a minimum of 1 hour. Group 2: sodium phosphate 20 mmol in sodium chloride 0.9 % 250 mL IVPBJump to med 20 mmol, intravenous, at 42.8 mL/hr, Administer over 6 Hours, As needed, for phosphorus level 2.3 mg/dL or less, Starting on Thu08/29/24 at 1704, Administer over 6 hours via dedicated line (peripheral line). If administered, recheck phosphorus level 4 hours after infusion complete. Or sodium phosphate 20 mmol in sodium chloride 0.9 % 100 mL IVPBJump to med 20 mmol, intravenous, at 26.7 mL/hr, Administer over 4 Hours, As needed, for phosphorus level 2.3 mg/dL or less., Starting on Thu08/29/24 at 1704, Administer over 4 hours via dedicated line (central line). If administered, recheck phosphorus level 4 hours after infusion complete. Infuse using central line access. Or sod phos di, mono-K phos mono (K-PHOS NEUTRAL) 250 mg tablet 2 tabletJump to med 2 tablet, oral, As needed, for phosphorus level 2.3 mg/dL or less., Starting on Thu08/29/24 at 1704, If dose administered, recheck phosphorus level 4 hours after last dose. Look-alike/sound-alike medication - verify indication for use. Give with a full glass of water. Care Teams (unrecognized sec tion and content) Team Status: Active Member Role Status Dates PHYSICIAN NO FAMILY Primary Care Provider Active Team Status: Inactive Member Role Status Dates PHYSICIAN NO FAMILY Primary Care Provider Active Start: July 23, 2024 End: July 23, 2024 GLENROY Orantes RN RESIDENTIAL TREATMENT STAFF-C Attending Provider Active Start: July 23 End: July 23, 2024 Team Status: Active Member Role Status Dates PHYSICIAN NO FAMILY Primary Care Provider Active Start: July 23, 2024 GLENROY Orantes RN RESIDENTIAL TREATMENT STAFF-C Attending Provider Active Start: July 23 Team Status: Active Member Role Status Dates [...] December 29, 2023 End: December 29, 2023 Bread Distributor Relationship Specialty Start Date End Date No Pcp, [place] [address] PCP - General Family Medicine 06/30/23 Bread Distributor Relationship Specialty Start Date End Date No Pcp, [place] [address] PCP - General Family Medicine 08/26/22 Bread Distributor Relationship Specialty Start Date End Date No Pcp, [place] [address] PCP - General Family Medicine 08/26/22 Bread Distributor Relationship Specialty Start Date End Date No Pcp, [place] [address] PCP - General Family Medicine 08/26/22 Bread Distributor Relationship Specialty Start Date End Date No Pcp, [place] [address] PCP - General Family Medicine 08/26/22 Bread Distributor Relationship Specialty Start Date End Date No Pcp, [place] [address] PCP - General Family Medicine 08/26/22 Bread Distributor Relationship Specialty Start Date End Date No Pcp, [place] [address] PCP - General Family Medicine 08/26/22 Bread Distributor Relationship Specialty Start Date End Date No Pcp, [place] [address] PCP - General Family Medicine 08/26/22 Bread Distributor Relationship Specialty Start Date End Date No Pcp, [place] [address] PCP - General Family Medicine 08/26/22 Bread Distributor Relationship Specialty Start Date End Date No Pcp, [place] [address] PCP - General [facility] Medicine 08/26/22 Bread Distributor Relationship Specialty Start Date End Date No Pcp, [place] [address] PCP - [facility] Medicine 08/26/22 Bread Distributor Relationship Specialty Start Date End Date No Pcp, [place] [address] PCP - General [facility] Medicine 08/26/22 Bread Distributor Relationship Specialty Start Date End Date No Pcp, [place] [address] PCP - General [facility] Medicine 08/26/22 Bread Distributor Relationship Specialty Start Date End Date No Pcp, [place] [address] PCP - [facility] Medicine 06/30/23 Bread Distributor Relationship Specialty Start Date End Date No Pcp, [place] [address] PCP - [facility] Medicine 06/30/23 Bread Distributor Relationship Specialty Start Date End Date No Pcp, [place] [address] PCP - [facility] Medicine 08/26/22 Bread Distributor Relationship Specialty Start Date End Date No Pcp, [place] [address] PCP - [facility] Medicine 06/30/23 Bread Distributor Relationship Specialty Start Date End Date No Pcp, [place] [address] PCP - General [facility] Medicine 06/30/23 Bread Distributor Relationship Specialty Start Date End Date No Pcp, [place] [address] PCP - General [facility] Medicine 06/30/23 Bread Distributor Relationship Specialty Start Date End Date No Pcp, [place] [address] PCP - General [facility] Medicine 06/30/23 Bread Distributor Relationship Specialty Start Date End Date No Pcp, [place] [address] PCP - General [facility] Medicine 06/30/23 Bread Distributor Relationship Specialty Start Date End Date No Pcp, [place] [address] PCP - General [facility] Medicine 06/30/23 Bread Distributor Relationship Specialty Start Date End Date No Pcp, [place] [address] PCP - General [facility] Medicine 06/30/23 Bread Distributor Relationship Specialty Start Date End Date No Pcp, [place] [address] PCP - General [facility] Medicine 08/29/24 Bread Distributor Relationship Specialty Start Date End Date No Pcp, [place] [address] PCP - General Family Medicine 08/29/24 Bread Distributor Relationship Specialty Start Date End Date No Pcp, [place] [address] PCP - General Family Medicine 08/29/24 Bread Distributor Relationship Specialty Start Date End Date Cristiane Andino, STAFF RN-[facility] [address] [place] [phone] PCP - General Family Medicine 09/26/24 Bread Distributor Relationship Specialty Start Date End Date [facility] [address], [place] [phone] PCP - General Family [facility] 09/26/24 Bread Distributor Relationship Specialty Start Date End Date Cristiane Andino, STAFF RN-[facility] [address], [place] [phone] PCP General Family [facility] 09/26/24 Bread Distributor Relationship Specialty Start Date End Date Cristiane Andino, STAFF RN-[facility] [address] [place] [phone] [facility] - General Family Medicine 09/26/24 Goals (unrecognized section and content) Goals may [...] BE BASED ON THE PRIMARY CLINICAL RECORDS. [facility]. provides no warranty or guarantee of the accuracy or completeness of information in this document.
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
[2024-11-07 12:01] LABS: HCG Qualitative Urine* NEGATIVE (NEGATIVE)
== END 2024-11-07 13:37 | disposition home or self-care (01) ==
PROVIDERS: Physician Assistant; Emergency Provider Emergency Medicine
DX: S20.211A Contusion of right front wall of thorax, initial encounter (principal); V49.49XA Driver injured in collision with other motor vehicles in traffic accident, initial encounter; M25.532 Pain in left wrist
CPT/HCPCS: 71250; 73100; 84703; 99285